=== PATIENT | male | born 1965 | race Caucasian/White ===

== ENCOUNTER → 2017-03-06 | Outpatient (CLI) | payer OTHER ==
--- NOTE | 2017-03-06 08:24 | US ---
EXAMINATION TYPE: US abdomen complete DATE OF EXAM: 03/06/2017 COMPARISON: CT abdomen October 07, 2015, US CLINICAL HISTORY: R74.8 Abn Liver Enzymes levels. EXAM MEASUREMENTS: Liver Length: 16.5 cm Gallbladder Wall: 0.2 cm CBD: 0.3 cm Spleen: 10.0 cm Right Kidney: 9.8 x 5.3 x 5.3 cm Left Kidney: 9.7 x 5.9 x 5.7 cm Pancreas: not visualized due to midline bowel gas Liver: difficult to penetrate Gallbladder: No stones seen Evidence for sonographic Carrasquillo's sign: No CBD: wnl Spleen: wnl Right Kidney: No hydronephrosis or masses seen Left Kidney: No hydronephrosis or masses seen Upper IVC: partially obscured by bowel, visualized portions wnl Abd Aorta: wnl The visualized liver is heterogeneously hyperechoic. Evaluation for focal masses is suboptimal due t o the heterogeneity. The intrahepatic portion of the IVC and visualized abdominal aorta are within no rmal limits. There is no evidence of shadowing mobile cholelithiasis. Common bile duct is unremarka ble. The pancreas is not well seen on images saved secondary to shadowing from overlying bowel gas. The spleen is unremarkable. Kidneys are symmetric and free of hydronephrosis. No renal lesions are seen. IMPRESSION: Heterogeneous hyperechoic appearance of liver suggests diffuse fatty infiltration or unde rlying hepatocellular disease. Imaging guided random biopsy for tissue analysis can be performed if d esired.
== END | disposition home or self-care (01) ==
LOC: RADUSWWP 07:23
PROVIDERS: ATTEND Family Medicine
DX: R74.8 Abnormal levels of other serum enzymes (principal)
CPT/HCPCS: 76700

== ENCOUNTER → 2017-03-15 | Outpatient (CLI) | payer OTHER | END | disposition home or self-care (01) | LOC: CPPFTMAIN 10:12 | PROVIDERS: ATTEND Family Medicine | DX: J45.40 Moderate persistent asthma, uncomplicated (principal) | CPT/HCPCS: 94060; 94726; 94729 ==

== ENCOUNTER → 2018-04-02 | Outpatient (CLI) | payer OTHER ==
[2018-04-02 08:59] LABS: Albumin 4.3 g/dL (3.5-5.0); Bilirubin, Delta 0.3 mg/dL (0.0-0.2); Total Bilirubin 0.3 mg/dL (0.2-1.3); Total Protein 7.1 g/dL (6.3-8.2)
--- NOTE | 2018-04-02 09:26 | MR ---
EXAMINATION TYPE: MR cspine/lspine wo con DATE OF EXAM: 04/02/2018 COMPARISON: Prior MRI cervical and lumbar spine December 06, 2013 HISTORY: Back pain and neck pain per order. Low back pain for years into both thighs and buttocks per patient. Headache with neck pain and stiffness for years causing pain or weakness into both arms and fingers per patient. TECHNIQUE: Multiplanar, multisequence imaging of the cervical and lumbar spine are performed without IV contrast. FINDINGS: C-SPINE: FINDINGS: Coronal images redemonstrate levoconvex scoliotic curvature centered in the upper thoracic spine. Sagittal images of the cervical spine show the craniocervical junction to remain within normal limits. The cervical and upper thoracic spinal cord is normal in course, caliber, and signal. Vert ebral alignment is stable and anatomic. The vertebral body heights remain normal. There is redemons tration of multilevel mild to moderate disc space narrowing C3-C4 through C5-C6 levels with posterior spur disc complexes effacing anterior thecal sac at these levels on sagittal images. Additional tiny posterior disc herniation C6-C7 level is redemonstrated. There is mild to moderate multilevel anteri or spurring most prominent in the mid cervical spine redemonstrated. Some heterogeneous endplate irvin ges are again seen. Axial images show the C2-C3 level to remain within normal limits. Axial images at C3-C4 level show uncovertebral facet degenerative changes bilaterally and broad-based central spur disc complex effacing anterior thecal sac, there is mild to moderate bilateral neural f oraminal narrowing. There is no significant change from prior study. Axial images at C4-C5 level show right paracentral disc protrusion on current study axial image 29 wi th some uncovertebral facet arthropathy, there is effacement of the anterior thecal sac and mild left -sided neural foraminal narrowing. Right-sided neural foramen is patent. Some change from prior study . Axial images at C5-C6 level show uncovertebral facet degenerative changes bilaterally with central sp ur disc complex, there is effacement of the anterior thecal sac, there is moderate left and mild righ t-sided neural foraminal narrowing. No significant change from prior. Axial images at C6-C7 level show right paracentral disc protrusion effacing anterior thecal sac, bila teral neural foramina are patent. No significant change from prior. Axial images at C7-T1 level are felt within normal limits. IMPRESSION: Multilevel degenerative changes in the cervical spine as detailed above, findings fairly stable, some interval change C4-C5 level is noted. L-SPINE: Sagittal images of the lumbar spine show vertebral body heights and alignment to remain satisfactory. There is further progression of multilevel disc desiccation from prior MRI. Disc space heights remai n fairly well-maintained. No new large posterior disc herniations are seen on sagittal images. The co nus medullaris remains normal in position and signal ending T12-L1 level. Modic type II degenerative change anterior L2-L3 endplates is redemonstrated. Small hemangioma T12 vertebra is again seen sagitt al image 6. Axial images show the T12-L1 level to remain within normal limits. Axial images at L1-L2 level show new mild broad disc bulge with left paracentral disc protrusion comp onent effacing anterior thecal sac and axial image 25, bilateral neural foramina are patent. Axial images at L2-L3 level redemonstrate mild to moderate broad disc bulge slightly more prominent w ith mild effacement of the anterior thecal sac noted on axial image 20 on current study, bilateral ne ural foramina are patent. Axial images at L3-L4 level redemonstrate mild broad disc bulge but spinal canal is preserved and meche ateral neural foramina are patent. Axial images at L4-L5 level redemonstrate mild broad disc bulge and mild to minimal facet degenerativ e changes bilaterally. There is effacement of the anterior thecal sac. There is mild right-sided ante rior inferior neural foraminal narrowing on axial image 9. Left-sided neural foramen is patent. No si gnificant change from prior. Axial images at L5-S1 level redemonstrate mild facet degenerative changes bilaterally. Increased sign al posteriorly consistent with annular tear is redemonstrated. There is broad disc bulge minimally ef facing the anterior thecal sac. Bilateral neural foramina are patent. No suspicious retroperitoneal findings are seen. IMPRESSION: Multilevel degenerative changes in the lumbar spine with some interval progression from 2 014 MRI as detailed above.
== END | disposition home or self-care (01) ==
LOC: RADMRIMAIN 06:47
PROVIDERS: ATTEND Physician Assistant
DX: M47.816 Spondylosis without myelopathy or radiculopathy, lumbar region (principal); M47.812 Spondylosis without myelopathy or radiculopathy, cervical region; Z79.891 Long term (current) use of opiate analgesic
CPT/HCPCS: 36415; 72141; 72148; 80076

== ENCOUNTER 2018-04-27 19:16 | Emergency (ER) | payer OTHER ==
[2018-04-27 19:23] VITALS: TEMP 97.7
[2018-04-27] MEDS ORDERED: HYDROcodone/APAP 5-325MG 1 EACH TAB PO STA (19:49)
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
--- NOTE | 2018-04-27 20:39 | XR ---
EXAMINATION TYPE: XR wrist complete 4 views RT, XR knee complete 3 views LT DATE OF EXAM: 04/27/2018 COMPARISON: NONE HISTORY: 53-year-old male with pain after fall FINDINGS: Right wrist: The radiocarpal and distal radial ulnar joint as well as the midcarpal compartment appear intact. No acute fracture, subluxation, or dislocation seen. Left knee: Prepatellar soft tissue swelling. Small knee joint effusion. There is thickening of the suprapatellar soft tissues of the extensor mechanism seems to be maintained. No acute fracture or dislocation. Deg enerative spurring at the patellofemoral compartment. IMPRESSION: 1. Right wrist: No acute osseous abnormality seen. 2. Left knee: Prepatellar and suprapatellar soft tissue swelling. Contusion/swelling could involve th e quadriceps tendon. Suspect that the tendon remains intact. If concern for injury to the extensor me chanism, follow-up ultrasound or MRI. Small knee joint effusion. No acute osseous abnormality seen.
[2018-04-27 21:15] VITALS: BP 131/80; PULSE 106; RESP 16
== END 2018-04-27 21:17 | disposition home or self-care (01) ==
LOC: EC 19:16
DX: S80.02XA Contusion of left knee, initial encounter (principal); S76.119A Strain of unspecified quadriceps muscle, fascia and tendon, initial encounter; S63.501A Unspecified sprain of right wrist, initial encounter; S60.512A Abrasion of left hand, initial encounter; S60.511A Abrasion of right hand, initial encounter; J45.909 Unspecified asthma, uncomplicated; F17.200 Nicotine dependence, unspecified, uncomplicated; Z79.899 Other long term (current) drug therapy; V13.4XXA Pedal cycle driver injured in collision with car, pick-up truck or van in traffic accident, initial encounter; Y93.55 Activity, bike riding; Y92.410 Unspecified street and highway as the place of occurrence of the external cause
CPT/HCPCS: 99283

== ENCOUNTER → 2018-11-19 | Outpatient (CLI) | payer OTHER ==
--- NOTE | 2018-11-19 11:03 | XR ---
EXAMINATION TYPE: XR shoulder complete BILAT DATE OF EXAM: 11/19/2018 COMPARISON: NONE HISTORY: Pain TECHNIQUE: Three views are submitted bilaterally. FINDINGS: The osseous structures are intact. There is no acute fracture or dislocation. There is narrowing of the AC joint on the right. There is chronic appearing deformity of the distal left clavicle. Chronic appearing right-sided rib deformities suggest previous fracture. IMPRESSION: 1. AC joint arthropathy on the right. 2. Deformity of the distal left clavicle likely related to previous trauma..
--- NOTE | 2018-11-19 11:04 | XR ---
EXAMINATION TYPE: XR Hip Bilateral Complete DATE OF EXAM: 11/19/2018 COMPARISON: NONE HISTORY: Pain TECHNIQUE: 2 views submitted FINDINGS: There is no evidence of erosive change or acute fracture. Hypertrophic change of the acetabulum. Calc ifications in the pelvis appear to be vascular. Mild concentric narrowing of the joint space bilatera lly. IMPRESSION: 1. No evidence of acute fracture or dislocation. 2. Mild bilateral arthropathy with findings suggestive of femoral acetabular impingement.
== END ==
LOC: RADXRMAIN 10:26
PROVIDERS: ATTEND Physician Assistant
DX: M12.811 Other specific arthropathies, not elsewhere classified, right shoulder (principal); M21.821 Other specified acquired deformities of right upper arm; M12.852 Other specific arthropathies, not elsewhere classified, left hip; M12.851 Other specific arthropathies, not elsewhere classified, right hip
CPT/HCPCS: 73521

== ENCOUNTER → 2019-06-24 | Outpatient (CLI) | payer OTHER ==
--- NOTE | 2019-06-24 11:26 | XR ---
EXAM TYPE: LUMBAR SPINE X RAY SERIES COMPARISON: NONE HISTORY: low back pain TECHNIQUE: 4 views are submitted. FINDINGS: Alignment is anatomic. The pedicles are intact. The transverse processes are intact. There is no s pondylolysis or spondylolisthesis. Diffuse osteopenia with mild multilevel degenerative disc disease . Vascular calcifications noted. There is facet arthropathy. IMPRESSION: 1. Multilevel mild facet arthropathy and degenerative disc disease. If symptoms persist consider MRI.
== END | disposition home or self-care (01) ==
LOC: RADXRMAIN 10:26
PROVIDERS: ATTEND Family Medicine
DX: M51.36 Other intervertebral disc degeneration, lumbar region (principal); M46.96 Unspecified inflammatory spondylopathy, lumbar region; G89.4 Chronic pain syndrome
CPT/HCPCS: 72110

== ENCOUNTER → 2019-07-25 | Outpatient (CLI) | payer OTHER ==
--- NOTE | 2019-07-28 08:20 | MM ---
Reason for exam: clinical finding. Baseline mammogram. History: Family history of breast cancer in mother and breast cancer in aunt. Physical Findings: Nurse Summary: 2-3cm nodule in the right breast at 12 o'clock and a 0.5cm nodule in the left breast at 12 o'clock (nurse kp). MG 3D Diag Mammo W/Cad ZACH Bilateral CC and MLO view(s) were taken. Right sided increased density. Ultrasound recommended. These results were verbally communicated with the patient and result sheet given to the patient on 07/25/19. ASSESSMENT: Incomplete: need additional imaging evaluation, BI-RAD 0 RECOMMENDATION: Ultrasound of both breasts.
--- NOTE | 2019-07-28 08:23 | USB ---
Reason for exam: additional evaluation requested from abnormal screening. History: Family history of breast cancer in mother and breast cancer in aunt. US Breast Limited BILAT Right limited breast ultrasound including focal area of concern, retroareolar and axilla demonstrates a 1.9 x 1.1cm irregular lesion at the posterior nipple, edematous appearance posterior to the right nipple may reflect gynecomastia although cannot exclude mastitis and a 2.1 x 0.7cm oval node at the axilla. Left limited breast ultrasound including focal area of concern, retroareolar and axilla demonstrates a 2.8 x 0.7cm oval node at the axilla. These results were verbally communicated with the patient and result sheet given to the patient on 07/25/19. ASSESSMENT: Probably benign, BI-RAD 3 RECOMMENDATION: Follow-up diagnostic mammogram and ultrasound of the right breast in 3 months.
== END ==
LOC: RADMAMWWP 14:50
PROVIDERS: ATTEND Family Medicine
DX: Z12.31 Encounter for screening mammogram for malignant neoplasm of breast (principal); R92.8 Other abnormal and inconclusive findings on diagnostic imaging of breast; Z80.3 Family history of malignant neoplasm of breast
CPT/HCPCS: 77066; 76642; G0279; 77062

== ENCOUNTER 2019-10-01 11:42 | Observation (INO) | payer OTHER ==
[2019-10-01 13:41] LABS: Basophils # (A) 0.2 k/uL (0-0.2); Basophils % (A) 2 %; Eosinophils # (A) 0.1 k/uL (0-0.7); Eosinophils % (A) 1 %; HCT 40.7 % (39.0-53.0); HGB 13.1 gm/dL (13.0-17.5); Lymphocytes % (A) 26 %; MCH 34.6 pg (25.0-35.0); MCHC 32.3 g/dL (31.0-37.0); MCV 107.2 fL (80.0-100.0); Macrocytosis Moderate; Mean Platelet Volume 8.5; Monocytes # (A) 0.5 k/uL (0-1.0); Monocytes % (A) 7 %; Neutrophils # (A) 4.6 k/uL (1.3-7.7); Neutrophils % (A) 62 %; RBC 3.79 m/uL (4.30-5.90); WBC 7.5 k/uL (3.8-10.6)
[2019-10-01] MEDS ORDERED: HYDROmorphone 1 MG/ML 1 ML SYRINGE IVP STA ×2 (13:45→16:31)
[2019-10-01 13:48] LABS: INR 1.4 (<1.2); Partial Thromboplastin Time 29.1 sec (22.0-30.0); Prothrombin Time 13.8 sec (9.0-12.0)
--- NOTE | 2019-10-01 13:48 | ED ---
General Adult HPI - General Chief complaint: Extremity Problem,Nontraumatic Stated complaint: leg & hand pain/numbness Time Seen by Provider: 10/01/19 11:50 Source: patient Mode of arrival: wheelchair Limitations: physical limitation - History of Present Illness Initial comments: The patient is a 54-year-old female with past medical history of osteoarthritis, renal disease and legally blind who presents emergency room with reported bilateral lower extremity pain. He states the pain has been present for the past 2 months. He has been seeing Dr. Arzola in office regarding this complaint. He has been diagnosed with restless leg syndrome. States he was placed on Lyrica however he did not like the way it made him feel. States that earlier this week usage to gabapentin. He states it has not been helping his symptoms. He also takes [place] for pain. He is reported to increased swelling in his bilateral lower extremities. Denies any back pain. No saddle anesthesia or bowel or bladder incontinence. He denies any shooting pains. Denies fevers or chills. It has gotten so bad that he has had difficulty in regulating. He has also developed a tremor of his bilateral upper extremities. States he can no longer take the pain and therefore came to the emergency room for further evaluation. He denies any headaches or visual changes. No weakness in his extremities. No history of congestive heart failure. Denies any shortness of breath or chest pain. No history of DVT or PE. Admits to calf pain. There are no other alleviating, precipitating or modifying factors - Related Data Home Medications Medication Instructions Recorded Confirmed Albuterol Inhaler [Ventolin Hfa 1 - 2 puff INHALATION RT-Q6H PRN 01/30/15 10/01/19 Inhaler] Cetirizine HCl [Zyrtec] 10 mg PO DAILY 10/01/19 10/01/19 Fluticasone Nasal [place] [Flonase 1 spr EA NOSTRIL DAILY PRN 10/01/19 10/01/19 Nasal [place]] Omeprazole 20 mg PO DAILY 10/01/19 10/01/19 Previous Rx's Medication Instructions Recorded Folic Acid 1 mg PO DAILY #30 tablet 10/03/19 Gabapentin [Neurontin] 600 mg PO TID #9 tab 10/03/19 Multivitamins, Thera [Multivitamin 1 tab PO DAILY #30 tablet 10/03/19 (formulary)] Nortriptyline [Pamelor] 25 mg PO HS #30 cap 10/03/19 Thiamine [Vitamin B-1] 100 mg PO DAILY #30 tab 10/03/19 predniSONE 10 mg PO DIRECTED #30 tab 10/03/19 Allergies Allergy/AdvReac Type Severity Reaction Status Date / Time No Known Allergies Allergy Verified 10/01/19 13:21 Review of Systems ROS Statement: Those systems with pertinent positive or pertinent negative responses have been documented in the HPI. ROS Other: All systems not noted in ROS Statement are negative. Past Medical History Past Medical History: Asthma, Osteoarthritis (OA), Renal Disease Additional Past Medical History / Comment(s): pericarditis, back pain, legally blind, bilateral knee pain, acute kidney injury from fall down stairs 04/2015 History of Any Multi-Drug Resistant Organisms: None Reported Past Surgical History: Orthopedic Surgery Additional Past Surgical History / Comment(s): Right hand surgery Past Psychological History: Anxiety, Depression Smoking Status: Current every day smoker Past Alcohol Use History: Occasional Past Drug Use History: Marijuana - Past Family History Father Family Medical History: No Reported History General Exam Limitations: physical limitation General appearance: alert, in no apparent distress Head exam: Present: atraumatic, normocephalic, normal inspection Eye exam: Present: normal appearance, PERRL, EOMI. Absent: scleral icterus, conjunctival injection, periorbital swelling ENT exam: Present: normal exam, mucous membranes moist Neck exam: Present: normal inspection. Absent: tenderness, meningismus, lymphadenopathy Respiratory exam: Present: normal lung sounds bilaterally. Absent: respiratory distress, wheezes, rales, rhonchi, stridor Cardiovascular Exam: Present: regular rate, normal rhythm, normal heart sounds. Absent: systolic murmur, diastolic murmur, rubs, gallop, clicks GI/Abdominal exam: Present: soft, normal bowel sounds. Absent: distended, tenderness, guarding, rebound, rigid Extremities exam: Present: full ROM, normal capillary refill, pedal edema, other (2+ DP and PT pulses). Absent: tenderness, joint swelling, calf tenderness Back exam: Present: normal inspection Neurological exam: Present: alert, oriented X3, CN II-XII intact, other (resting tremor b/l upper extremities) Psychiatric exam: Present: normal affect, normal mood Skin exam: Present: warm, dry, intact, normal color. Absent: rash Course Vital Signs 10/01/19 10/01/19 10/01/19 11:51 12:17 13:39 Temperature 97.8 F 97.8 F Pulse Rate 104 H 101 H 103 H Respiratory 20 18 18 Rate Blood Pressure 123/74 131/91 149/100 O2 Sat by Pulse 95 93 L 93 L Oximetry 10/01/19 10/01/19 15:47 17:13 Temperature Pulse Rate 97 113 H Respiratory 18 18 Rate Blood Pressure 141/80 113/59 O2 Sat by Pulse 91 L 96 Oximetry Medical Decision Making - Medical Decision Making Upon arrival the patient was placed into room 10. A thorough history and physical exam was performed. The patient does have a bilateral lower extremity edema. Peripheral IV was established. The patient is requesting something for pain control therefore he is given 1 mg of Dilaudid. Laboratory studies were conducted. INR elevated at 1.4. Lactic acid is 2.4. Calcium 7.7. AST 127. A lk phos 149. CK 49. Venous Doppler of the lower extremity demonstrates no DVT. I discussed results with the patient. He continues to report intractable pain. He is requesting another dose of pain medications. Did provide him with an additional dose of Dilaudid. I discussed the case with Dr. Solano as he is on-call for Dr. Zurita. He does agree to hospital admission with neurology consult for the lower extremity neuropathy pain and tremors. I discussed this with the patient he does agree. Bridging orders were placed patient is awaiting a bed on the floor - Lab Data Result diagrams: 10/03/19 06:33 10/03/19 06:33 Lab Results 10/01/19 10/01/19 10/01/19 Range/Units 13:17 13:17 13:17 WBC 7.5 (3.8-10.6) k/uL RBC 3.79 L (4.30-5.90) m/uL Hgb 13.1 (13.0-17.5) gm/dL Hct 40.7 (39.0-53.0) % MCV 107.2 H (80.0-100.0) fL MCH 34.6 (25.0-35.0) pg MCHC 32.3 (31.0-37.0) g/dL RDW 15.0 (11.5-15.5) % Plt Count 94 L (150-450) k/uL Neutrophils % 62 % Lymphocytes % 26 % Monocytes % 7 % Eosinophils % 1 % Basophils % 2 % Neutrophils # 4.6 (1.3-7.7) k/uL Lymphocytes # 2.0 (1.0-4.8) k/uL Monocytes # 0.5 (0-1.0) k/uL Eosinophils # 0.1 (0-0.7) k/uL Basophils # 0.2 (0-0.2) k/uL Manual Slide Review Performed Poikilocytosis (manual Present Anisocytosis (manual) Present Macrocytosis Moderate Target Cells Present PT (9.0-12.0) sec INR (<1.2) APTT (22.0-30.0) sec Sodium 145 (137-145) mmol/L Potassium 3.8 (3.5-5.1) mmol/L Chloride 107 (98-107) mmol/L Carbon Dioxide 28 (22-30) mmol/L Anion Gap 10 mmol/L BUN 5 L (9-20) mg/dL Creatinine 0.62 L (0.66-1.25) mg/dL Est GFR (CKD-EPI)AfAm >90 (>60 ml/min/1.73 sqM) Est GFR (CKD-EPI)NonAf >90 (>60 ml/min/1.73 sqM) Glucose 96 (74-99) mg/dL Lactic Ac Sepsis Rflx Plasma Lactic Acid Praveen (0.7-2.0) mmol/L Calcium 7.7 L (8.4-10.2) mg/dL Magnesium 2.1 (1.6-2.3) mg/dL Total Bilirubin 1.8 H (0.2-1.3) mg/dL AST 127 H (17-59) U/L ALT 17 (4-49) U/L Alkaline Phosphatase 149 H (38-126) U/L Creatine Kinase 49 L (55-170) U/L C-Reactive Protein (<10.0) mg/L NT-Pro-B Natriuret Pep 246 pg/mL Total Protein 7.3 (6.3-8.2) g/dL Albumin 2.8 L (3.5-5.0) g/dL TSH 1.480 (0.465-4.680) mIU/L 10/01/19 10/01/19 10/01/19 Range/Units 13:17 13:17 13:17 WBC (3.8-10.6) k/uL RBC (4.30-5.90) m/uL Hgb (13.0-17.5) gm/dL Hct (39.0-53.0) % MCV (80.0-100.0) fL MCH (25.0-35.0) pg MCHC (31.0-37.0) g/dL RDW (11.5-15.5) % Plt Count (150-450) k/uL Neutrophils % % Lymphocytes % % Monocytes % % Eosinophils % % Basophils % % Neutrophils # (1.3-7.7) k/uL Lymphocytes # (1.0-4.8) k/uL Monocytes # (0-1.0) k/uL Eosinophils # (0-0.7) k/uL Basophils # (0-0.2) k/uL Manual Slide Review Poikilocytosis (manual Anisocytosis (manual) Macrocytosis Target Cells PT 13.8 H (9.0-12.0) sec INR 1.4 H (<1.2) APTT 29.1 (22.0-30.0) sec Sodium (137-145) mmol/L Potassium (3.5-5.1) mmol/L Chloride (98-107) mmol/L Carbon Dioxide (22-30) mmol/L Anion Gap mmol/L BUN (9-20) mg/dL Creatinine (0.66-1.25) mg/dL Est GFR (CKD-EPI)AfAm (>60 ml/min/1.73 sqM) Est GFR (CKD-EPI)NonAf (>60 ml/min/1.73 sqM) Glucose (74-99) mg/dL Lactic Ac Sepsis Rflx Plasma Lactic Acid Praveen 2.4 H* (0.7-2.0) mmol/L Calcium (8.4-10.2) mg/dL Magnesium (1.6-2.3) mg/dL Total Bilirubin (0.2-1.3) mg/dL AST (17-59) U/L ALT (4-49) U/L Alkaline Phosphatase (38-126) U/L Creatine Kinase (55-170) U/L C-Reactive Protein 20.8 H (<10.0) mg/L NT-Pro-B Natriuret Pep pg/mL Total Protein (6.3-8.2) g/dL Albumin (3.5-5.0) g/dL TSH (0.465-4.680) mIU/L 10/01/19 Range/Units 14:00 WBC (3.8-10.6) k/uL RBC (4.30-5.90) m/uL Hgb (13.0-17.5) gm/dL Hct (39.0-53.0) % MCV (80.0-100.0) fL MCH (25.0-35.0) pg MCHC (31.0-37.0) g/dL RDW (11.5-15.5) % Plt Count (150-450) k/uL Neutrophils % % Lymphocytes % % Monocytes % % Eosinophils % % Basophils % % Neutrophils # (1.3-7.7) k/uL Lymphocytes # (1.0-4.8) k/uL Monocytes # (0-1.0) k/uL Eosinophils # (0-0.7) k/uL Basophils # (0-0.2) k/uL Manual Slide Review Poikilocytosis (manual Anisocytosis (manual) Macrocytosis Target Cells PT (9.0-12.0) sec INR (<1.2) APTT (22.0-30.0) sec Sodium (137-145) mmol/L Potassium (3.5-5.1) mmol/L Chloride (98-107) mmol/L Carbon Dioxide (22-30) mmol/L Anion Gap mmol/L BUN (9-20) mg/dL Creatinine (0.66-1.25) mg/dL Est GFR (CKD-EPI)AfAm (>60 ml/min/1.73 sqM) Est GFR (CKD-EPI)NonAf (>60 ml/min/1.73 sqM) Glucose (74-99) mg/dL Lactic Ac Sepsis Rflx Y Plasma Lactic Acid Praveen (0.7-2.0) mmol/L Calcium (8.4-10.2) mg/dL Magnesium (1.6-2.3) mg/dL Total Bilirubin (0.2-1.3) mg/dL AST (17-59) U/L ALT (4-49) U/L Alkaline Phosphatase (38-126) U/L Creatine Kinase (55-170) U/L C-Reactive Protein (<10.0) mg/L NT-Pro-B Natriuret Pep pg/mL Total Protein (6.3-8.2) g/dL Albumin (3.5-5.0) g/dL TSH (0.465-4.680) mIU/L - EKG Data EKG Comments: EKG demonstrates a normal sinus rhythm with a ventricular rate of 96. GA interval 140. QRS 78. QTC of 469. No acute ST segment elevation depressions concerning for ischemic changes Disposition Clinical Impression: Bilateral lower extremity pain Disposition: ADMITTED IP TO THIS HOSP Condition: Stable Is patient prescribed a controlled substance at d/c from ED?: No Decision to Admit Reason: Admit from EC Decision Date: 10/01/19 Decision Time: 15:44
[2019-10-01 13:53] LABS: ALT 17 U/L (4-49); AST 127 U/L (17-59); African American GFR (CKD) >90 (>60 ml/min/1.73 sqM); Albumin 2.8 g/dL (3.5-5.0); Alkaline Phosphatase 149 U/L (38-126); Anion Gap 10 mmol/L; Blood Urea Nitrogen 5 mg/dL (9-20); Calcium 7.7 mg/dL (8.4-10.2); Carbon Dioxide 28 mmol/L (22-30); Chloride 107 mmol/L (98-107); Creatine Kinase 49 U/L (55-170); Glucose 96 mg/dL (74-99); Magnesium 2.1 mg/dL (1.6-2.3); Non-African American GFR(CKD) >90 (>60 ml/min/1.73 sqM); Potassium 3.8 mmol/L (3.5-5.1); Sodium 145 mmol/L (137-145); Total Bilirubin 1.8 mg/dL (0.2-1.3); Total Protein 7.3 g/dL (6.3-8.2)
[2019-10-01 14:02] LABS: Platelet Count 94 k/uL (150-450)
[2019-10-01 14:03] LABS: Anisocytosis (M) Present; Poikilocytosis (M) Present; Target Cells Present
--- NOTE | 2019-10-01 14:17 | US ---
EXAMINATION TYPE: US venous doppler duplex LE DATE OF EXAM: 10/01/2019 2:03 PM COMPARISON: NONE CLINICAL HISTORY: swelling, pain. SIDE PERFORMED: Bilateral TECHNIQUE: The lower extremity deep venous system is examined utilizing real time linear array sonog bowen with graded compression, doppler sonography and color-flow sonography. VESSELS IMAGED: External Iliac Vein (EIV) Common Femoral Vein Deep Femoral Vein Greater Saphenous Vein * Femoral Vein Popliteal Vein Small Saphenous Vein * Proximal Calf Veins (* superficial vessels) Grayscale, color doppler, spectral doppler imaging performed of the deep veins of the lower extremiti es. There is normal flow, compressibility, vascular waveforms. Right Leg: Negative for DVT Left Leg: Negative for DVT IMPRESSION: No sonographic evidence of deep venous thrombosis within either bilateral lower extremit y.
[2019-10-01] MEDS ORDERED: NALOXONE 0.4 MG/ML 1 ML VIAL IV PRN (16:31)
[2019-10-01] MEDS ORDERED: FLUTICASONE 50MCG/SPRAY NASAL 16GM EA NOSTRIL PRN (19:17)
[2019-10-01] MEDS ORDERED: ALBUTEROL NEBULIZED 2.5 MG/3 ML INHALATION PRN (19:17)
[2019-10-01] MEDS: SODIUM CHLORIDE 0.9% 1,000 ML IV SCH (19:44)
[2019-10-01] MEDS: HYDROmorphone 1 MG/ML 1 ML SYRINGE IVP PRN ×2 (20:18→23:15)
[2019-10-01] MEDS: methylPREDNISolone SOD SUCCI 125 MG/2 ML VIAL IV SCH (23:16)
[2019-10-02] MEDS: HYDROmorphone 1 MG/ML 1 ML SYRINGE IVP PRN ×3 (02:10→10:00)
[2019-10-02] MEDS: SODIUM CHLORIDE 0.9% 1,000 ML IV SCH ×2 (03:38→10:03)
[2019-10-02] MEDS: methylPREDNISolone SOD SUCCI 125 MG/2 ML VIAL IV SCH ×4 (05:34→23:25)
[2019-10-02] MEDS: PANTOPRAZOLE 40 MG TABLET PO SCH (07:06)
[2019-10-02] MEDS ORDERED: THIAMINE 100 MG/ML 2 ML VIAL IM STA (07:08)
[2019-10-02] MEDS ORDERED: LORazepam 2 MG/ML INJ IV PRN ×2 (07:08)
[2019-10-02] MEDS ORDERED: ONDANSETRON 4 MG/2 ML VIAL IVP PRN (07:19)
[2019-10-02] MEDS: LORazepam 2 MG/ML INJ IV PRN ×3 (07:27→17:51)
[2019-10-02] MEDS: LORATADINE 10 MG TAB PO SCH (07:27)
[2019-10-02] MEDS ORDERED: MULTIVITAMINS, THERA 1 EACH TAB PO SCH (09:00)
--- NOTE | 2019-10-02 09:33 | XR ---
EXAMINATION TYPE: XR chest 1V portable DATE OF EXAM: 10/02/2019 COMPARISON: 06/22/2014 HISTORY: Shortness of breath and cough TECHNIQUE: Single frontal view of the chest is obtained. FINDINGS: There is no focal air space opacity, pleural effusion, or pneumothorax seen. The cardiac silhouette size is upper limits of normal in size. Old fracture deformities of the right lateral ribs are again noted. IMPRESSION: No acute process.
[2019-10-02 11:30] LABS: HCT 42.4 % (39.0-53.0); HGB 13.4 gm/dL (13.0-17.5); MCH 34.3 pg (25.0-35.0); MCHC 31.5 g/dL (31.0-37.0); MCV 108.6 fL (80.0-100.0); Macrocytosis Marked; Mean Platelet Volume 9.7; RDW 14.8 % (11.5-15.5); WBC 5.9 k/uL (3.8-10.6)
[2019-10-02 11:35] LABS: Platelet Count 97 k/uL (150-450)
[2019-10-02 11:46] LABS: ALT 19 U/L (4-49); AST 104 U/L (17-59); African American GFR (CKD) >90 (>60 ml/min/1.73 sqM); Albumin 3.1 g/dL (3.5-5.0); Alkaline Phosphatase 122 U/L (38-126); Anion Gap 9 mmol/L; Blood Urea Nitrogen 7 mg/dL (9-20); Calcium 7.5 mg/dL (8.4-10.2); Carbon Dioxide 29 mmol/L (22-30); Chloride 102 mmol/L (98-107); Glucose 138 mg/dL (74-99); Non-African American GFR(CKD) >90 (>60 ml/min/1.73 sqM); Potassium 3.9 mmol/L (3.5-5.1); Sodium 140 mmol/L (137-145); Total Bilirubin 2.4 mg/dL (0.2-1.3); Total Protein 7.9 g/dL (6.3-8.2)
[2019-10-02 12:03] LABS: Glucose,Whole Blood 130 mg/dL (75-99)
[2019-10-02] MEDS: INSULIN ASPART (NovoLOG) 100 UNIT/ML VIAL SQ SCH ×3 (12:03→20:38)
--- NOTE | 2019-10-02 12:16 | P.HPIM ---
History of Present Illness H&P Date: 10/02/19 This is a 54-year-old gentleman, history of polysubstance abuse including alcohol abuse , legally blind, osteoarthritis and multiple other medical issues presented to the ER with worsening bilateral lower extremity pain accompanied by tremors, numbness of feet and hands. Reports leg pain has been present for greater than 8 months, over the last 3-4 weeks he has been taken to [place] dose 3 times a day which was not controlling the pain. Denies difficulty ambulating.Reports PCP started him on Lyrica, did not like how it made him feel. Medication changed to Neurontin which helped but did not totally relieve his discomfort. Complains of bilateral lower extremity edema. Denies back pain, incontinence. No fevers or chills. Denies chest pain, palpitations or shortness of breath. Denies lightheadedness dizziness or focal deficits. Received IV push Dilaudid 2 for pain management in the ER. Elevated LFTs, INR 1.4. Reports he drinks 6-8 beers daily. Lactic acid mildly elevated at 2.4. received gentle IV fluid hydration. Currently complaining of nausea, vomiting, denies abdominal pain. Tremor significantly improved with Ativan. EKG read normal sinus rhythm Venous Doppler of bilateral lower extremities, reported negative for DVT. Chest x-ray reported no acute process. Review of Systems ROS Statement: Those systems with pertinent positive or pertinent negative responses have been documented in the HPI. ROS Other: All systems not noted in ROS Statement are negative. Past Medical History Past Medical History: Asthma, Osteoarthritis (OA), Renal Disease Additional Past Medical History / Comment(s): pericarditis, back pain, legally blind, bilateral knee pain, acute kidney injury from fall down stairs 04/2015, restless leg syndrome History of Any Multi-Drug Resistant Organisms: None Reported Past Surgical History: Orthopedic Surgery Additional Past Surgical History / Comment(s): Right hand surgery Past Anesthesia/Blood Transfusion Reactions: No Reported Reaction Past Psychological History: Anxiety, Depression Smoking Status: Current every day smoker Past Alcohol Use History: Occasional Past Drug Use History: Marijuana - Past Family History Father Family Medical History: No Reported History Medications and Allergies Home Medications Medication Instructions Recorded Confirmed Type Albuterol Inhaler [Ventolin 1 - 2 puff INHALATION RT-Q6H PRN 01/30/15 10/01/19 History Inhaler] Baclofen [[place]] 10 mg PO TID 10/01/19 10/01/19 History Cetirizine HCl [Zyrtec] 10 mg PO DAILY 10/01/19 10/01/19 History Fluticasone Nasal [place] [Flonase 1 spr EA NOSTRIL DAILY PRN 10/01/19 10/01/19 History Nasal [place]] Gabapentin [Neurontin] 400 mg PO TID 10/01/19 10/01/19 History HYDROcodone/APAP 10-325MG [[place] 1 tab PO TID PRN 10/01/19 10/01/19 History 10-325] Omeprazole 20 mg PO DAILY 10/01/19 10/01/19 History Allergies Allergy/AdvReac Type Severity Reaction Status Date / Time No Known Allergies Allergy Verified 10/01/19 13:21 Physical Exam Vitals: Vital Signs Temp Pulse Pulse Resp BP BP Pulse Ox 10/02/19 08:31 98.5 F 86 15 157/81 90 L 10/02/19 00:18 98.4 F 108 H 16 153/79 92 L 10/01/19 20:00 109 H 10/01/19 17:37 97.9 F 105 H 17 132/82 95 10/01/19 17:30 98.1 F 113 H 18 138/85 95 10/01/19 17:13 113 H 18 113/59 96 10/01/19 15:47 97 18 141/80 91 L 10/01/19 13:39 103 H 18 149/100 93 L 10/01/19 12:17 97.8 F 101 H 18 131/91 93 L 10/01/19 11:51 97.8 F 104 H 20 123/74 95 Intake and Output 10/01/19 10/02/19 10/02/19 22:59 06:59 14:59 Intake Total 130 1170 Balance 130 1170 Intake: Intake, IV Titration 130 1170 Amount Sodium Chloride 0.9% 1, 130 1170 000 ml @ 130 mls/hr IV . Q7H42M [facility] Rx#:[id number] Other: Voiding Method Toilet Toilet # Voids 1 3 Weight 87.543 kg PHYSICAL EXAM: VITAL SIGNS: As above GENERAL: Sitting up in bed, no acute disTRESS. HEENT: Conjunctivae normal. eyes normal. NECK: No JVD. No thyroid enlargement. No LNs CARDIOVASCULAR: S1, S2 regular.. No murmur RESPIRATION: Coarse Breath sounds diminished in the bases. No rhonchi or crackles. No bronchial breathing. ABDOMEN: Soft, nondistended, nontender . No guarding. no masses palpable. No ascites, No hepatosplenomegaly.Bowel sounds heard. LEGS: Minimal Bilateral lower extremity edema, venous insufficiency PSYCHIATRY: Alert and oriented X3, mood and affect normal. NERVOUS SYSTEM: Cranial N 2-12 grossly normal. Moves all 4 limbs. Diffuse weakness No focal deficits. Strength and sensation grossly intact.. Minimal tremors. Skin: no rash Lymphatic system. No LN neck axilla. Results CBC & Chem 7: 10/02/19 11:18 10/02/19 11:18 Labs: Abnormal Lab Results - Last 24 Hours (Table) 10/01/19 10/01/19 10/01/19 Range/Units 13:17 13:17 13:17 RBC 3.79 L (4.30-5.90) m/uL MCV 107.2 H (80.0-100.0) fL Plt Count 94 L (150-450) k/uL ESR (0-15) mm/hr PT 13.8 H (9.0-12.0) sec INR 1.4 H (<1.2) BUN 5 L (9-20) mg/dL Creatinine 0.62 L (0.66-1.25) mg/dL Plasma Lactic Acid Praveen (0.7-2.0) mmol/L Calcium 7.7 L (8.4-10.2) mg/dL Total Bilirubin 1.8 H (0.2-1.3) mg/dL AST 127 H (17-59) U/L Alkaline Phosphatase 149 H (38-126) U/L Creatine Kinase 49 L (55-170) U/L C-Reactive Protein (<10.0) mg/L Albumin 2.8 L (3.5-5.0) g/dL 10/01/19 10/01/19 10/01/19 Range/Units 13:17 13:17 17:21 RBC (4.30-5.90) m/uL MCV (80.0-100.0) fL Plt Count (150-450) k/uL ESR (0-15) mm/hr PT (9.0-12.0) sec INR (<1.2) BUN (9-20) mg/dL Creatinine (0.66-1.25) mg/dL Plasma Lactic Acid Praveen 2.4 H* 2.5 H* (0.7-2.0) mmol/L Calcium (8.4-10.2) mg/dL Total Bilirubin (0.2-1.3) mg/dL AST (17-59) U/L Alkaline Phosphatase (38-126) U/L Creatine Kinase (55-170) U/L C-Reactive Protein 20.8 H (<10.0) mg/L Albumin (3.5-5.0) g/dL 10/01/19 Range/Units 20:32 RBC (4.30-5.90) m/uL MCV (80.0-100.0) fL Plt Count (150-450) k/uL ESR 48 H (0-15) mm/hr PT (9.0-12.0) sec INR (<1.2) BUN (9-20) mg/dL Creatinine (0.66-1.25) mg/dL Plasma Lactic Acid Praveen (0.7-2.0) mmol/L Calcium (8.4-10.2) mg/dL Total Bilirubin (0.2-1.3) mg/dL AST (17-59) U/L Alkaline Phosphatase (38-126) U/L Creatine Kinase (55-170) U/L C-Reactive Protein (<10.0) mg/L Albumin (3.5-5.0) g/dL Thrombosis Risk Factor Assmnt - Choose All That Apply Any of the Below Risk Factors Present?: Yes Each Factor Represents 1 point: Age 41-60 years, Obesity (BMI >25) Other Risk Factors: No Other congenital or acquired thrombophilia - If yes, enter type in comment: No Thrombosis Risk Factor Assessment Total Risk Factor Score: 2 Thrombosis Risk Factor Assessment Level: Low Risk Assessment and Plan Assessment: Bilateral lower extremity pain, 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 Alcohol abuse, possible DTs, drinks 6-8 beers daily Coagulopathy, elevated INR on admission secondary to the above Elevated LFTs History of polysubstance abuse, per record review; patient reports only alcohol currently. Ongoing nicotine dependence Legally blind Restless leg syndrome Chronic renal failure, stage I Obesity, BMI 31.2 Right lateral ribs old fracture deformities per chest x-ray Osteoarthritis Venous insufficiency Plan, continue on current medication regime ,monitoring antidromic treatment. Zofran, npo diet with ice chips. Dilaudid discontinued. IV fluid hydration including banana bag daily. Acetaminophen level and F/U Labs ordered. CIWA protocol initiated. Neurology consult in place, recommendations pending. Social work and psychiatry consulted. Home meds have been reviewed and resumed accordingly. The impression and plan of care has been dictated as directed. : I performed a history and examination of this patient, discussed the same with the dictator. I agree with the dictator's note ,documented as a scribe. Any additional findings or plans will be noted.
[2019-10-02] MEDS: THIAMINE 100 MG TAB PO SCH (16:55)
[2019-10-02 17:01] LABS: Glucose,Whole Blood 156 mg/dL (75-99)
--- NOTE | 2019-10-02 17:41 | P.CNNES ---
History of Present Illness Consult date: 10/02/19 Reason for Consult: new onset tremor History of Present Illness: HISTORY OF PRESENT ILLNESS: Thank you for allowing me to evaluate Ms. Iván Banerjee. Mr. Banerjee is a 54 year-old man with PMhx of restless leg syndrome, asthma, osteoarthritis, pericarditis, legally blind, acute kidney injury after a fall, anxiety, derpession, who presented to [facility] for leg pain x2 months, consulting Neurology for new onset tremor. 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 Patient noticed since about 3-4 weeks ago where he started having severe aching pain in his legs bilaterally. He states his leg pain is 10/10. Pain doesn't necessarily doesn't originate from his lower back, but he's been told that he had degenerative changes. Patient reports that he's had some numbness in his hands bilaterally and also numbness and tingling in his feet and legs up to his thigh. He reports more tingling sensation in his legs than his feet. Patient reports that he was diagnosed with restless leg syndrome many years ago. Patient states that he "hits his " in sleep and while in bed due to his restless leg syndrome. Patient does not remember any medications he was given for it, but he is taking baclofen, intermittently, when his back or legs spasm. Patient states that his "tremors" improve once he takes his pain medications. During the evaluation, patient demonstrated his episodes of tremors, and it was as if his entire body was shaking from EtOH withdrawal. Patient states that he was recently in penitentiary, released about a year ago, and while he was in penitentiary, he got his EtOH and cigarettes cut cold turkey and never had withdrawal symptoms. Patient denies any headache, vision changes, dizziness, weakness. Pt reports he vomited today after drinking mountain dew. Denies recent sickness, fever, coughing, chest pain or SOB. Endorses some diarrhea yesterday. Patient denies any urinary retention/incontinence or constipation. Patient has taken gabapentin and lyrica for peripheral neuropathy. Pt didn't like lyrica as it caused him to feel foggy mentally. He's been taking gabapentin. PAST MEDICAL HISTORY: restless leg syndrome, asthma, osteoarthritis, pericarditis, legally blind, acute kidney injury after a fall, anxiety, derpession PAST SURGICAL HISTORY: R hand surgery HOME MEDICATIONS: Albuterol, norco, baclofen, omeprazole, gabapentin, cetirizine ALLERGIES: NKDA SOCIAL HISTORY: Current everyday smoker. Drinks at least 6-7 cans of beer daily. Endorses marijuana use FAMILY HISTORY: No family history of tremor, migraine, Parkinson's disease REVIEW OF SYSTEMS: The 14 systems are reviewed and no additional points are identified compared to the review of systems documented history and physical PHYSICAL EXAMINATION: VITAL SIGNS: T 98.5 HR 86 RR 15 BP 157/81 O2 sat 90% on RA GEN.: NAD, pleasant and cooperative HEENT: NCAT, sclera without icterus NECK: Supple SKIN AND EXTREMITIES: Warm to touch, no edema (pt reports that his legs were more swollen last couple of days, much improved today) NEURO: MENTAL STATUS: Patient alert and oriented to self, place, time. Able to name the current president. Speech fluent, able to name and repeat, following all commands readily. No right and left disorientation, neglect. CRANIAL NERVES II THROUGH XII: II: Pupils are equal and reactive to light symmetrically. Visual field deficit in R upper and lower quadrants. R eye has limited vision for years. L temporal quadrants also with visual field deficit. III, IV, : No ptosis. Extraocular movements full. No nystagmus. V: Facial sensation intact from V1-3. VII. No clear facial asymmetry. VIII: Hearing intact to finger rub bilaterally. IX, X: Symmetric palate elevation. XI: Shoulder shrug intact. XII: Tongue midline without fasciculation or atrophy. MOTOR: Normal bulk/tone. No pronator drift or tremor. Strength is 5/5 throughout all 4 extremities. SENSORY: Intact to light touch in all 4 extremities. Pt reporting numbness and tingling in his legs bilaterally. Romberg is negative. REFLEXES: 2+ throughout. Toes are downgoing. No clonus. Ken's is absent COORDINATION: Finger to nose intact. No dysmetria. GAIT: Narrow-based and stable. Difficulty with toe/heel/tandem walk DIAGNOSTIC TESTING: LABORATORY: WBC 7.5 Hgb 13.1 Platelet 94 ESR 48 CRP 20.8 INR 1.4 K 145 K 3.8 Cl 107 CO2 28 BUN 5 Cr 0.62 glucose 96 lactic acid 2.4 AST 127 ALT 17 AlkPhos 149 TSH 1.480 IMAGING: No head imaging available at this time ASSESSMENT: 54 year-old man with PMhx of restless leg syndrome, asthma, osteoarthritis, pericarditis, legally blind, acute kidney injury after a fall, anxiety, derpession, who presented to [facility] for leg pain x2 months, consulting Neurology for new onset tremor. Exam remarkable for temporal visual deficit in both R and L eyes (R eye is legally blind) and b/l LE numbness and tingling. Pt with physiological tremor during this eval. Pt's report of episodes of shaking could be from patient's EtOH abuse/withdrawal, especially considering that his shaking episodes improve after taking [place]. Patient should get some head imaging, but can be done as outpatient. Patient needs formal education about EtOH abuse.Will start patient on nortriptyline 25mg qhs for his pain and also difficulty with sleeping. Discussed with and patient. Discussed side effects such as dry mouth, constipation, heart palpitations, dizziness. Patient will discontinue if he has any of these side effects. If patient tolerating med for 2 weeks, can increase to 50mg qhs. No additional inpatient neurological evaluation recommended at this time. Pt needs to follow-up with an outpatient Neurologist for better management of restless leg syndrome, possible EMG/NCS, and better management of paresthesia/pain. Neurology will sign off at this time. Please call with additional questions or concerns. Past Medical History Past Medical History: Asthma, Osteoarthritis (OA), Renal Disease Additional Past Medical History / Comment(s): pericarditis, back pain, legally blind, bilateral knee pain, acute kidney injury from fall down stairs 04/2015, restless leg syndrome History of Any Multi-Drug Resistant Organisms: None Reported Past Surgical History: Orthopedic Surgery Additional Past Surgical History / Comment(s): Right hand surgery Past Anesthesia/Blood Transfusion Reactions: No Reported Reaction Past Psychological History: Anxiety, Depression Smoking Status: Current every day smoker Past Alcohol Use History: Occasional Past Drug Use History: Marijuana - Past Family History Father Family Medical History: No Reported History Medications and Allergies Home Medications Medication Instructions Recorded Confirmed Type Albuterol Inhaler [Ventolin 1 - 2 puff INHALATION RT-Q6H PRN 01/30/15 10/01/19 History Inhaler] Baclofen [Lioresal] 10 mg PO TID 10/01/19 10/01/19 History Cetirizine HCl [Zyrtec] 10 mg PO DAILY 10/01/19 10/01/19 History Fluticasone Nasal [place] [Flonase 1 spr EA NOSTRIL DAILY PRN 10/01/19 10/01/19 History Nasal [place]] Gabapentin [Neurontin] 400 mg PO TID 10/01/19 10/01/19 History HYDROcodone/APAP 10-325MG [[place] 1 tab PO TID PRN 10/01/19 10/01/19 History 10-325] Omeprazole 20 mg PO DAILY 10/01/19 10/01/19 History Allergies Allergy/AdvReac Type Severity Reaction Status Date / Time No Known Allergies Allergy Verified 10/01/19 13:21 Physical Examination - Vital Signs Vital Signs: Vital Signs Temp Pulse Pulse Resp BP BP Pulse Ox 10/02/19 08:31 98.5 F 86 15 157/81 90 L 10/02/19 00:18 98.4 F 108 H 16 153/79 92 L 10/01/19 20:00 109 H 10/01/19 17:37 97.9 F 105 H 17 132/82 95 10/01/19 17:30 98.1 F 113 H 18 138/85 95 10/01/19 17:13 113 H 18 113/59 96 10/01/19 15:47 97 18 141/80 91 L 10/01/19 13:39 103 H 18 149/100 93 L 10/01/19 12:17 97.8 F 101 H 18 131/91 93 L 10/01/19 11:51 97.8 F 104 H 20 123/74 95 Intake and Output 10/01/19 10/02/19 10/02/19 22:59 06:59 14:59 Intake Total 130 1170 Balance 130 1170 Intake: Intake, IV Titration 130 1170 Amount Sodium Chloride 0.9% 1, 130 1170 000 ml @ 130 mls/hr IV . [id number] [facility] Rx#:[id number] Other: Voiding Method Toilet Toilet # Voids 1 3 Weight 87.543 kg Results - Laboratory Findings CBC and BMP: 10/02/19 11:18 10/02/19 11:18 Abnormal Lab Findings: Abnormal Labs 10/01/19 10/01/19 10/01/19 13:17 13:17 13:17 RBC 3.79 L MCV 107.2 H Plt Count 94 L ESR PT 13.8 H INR 1.4 H BUN 5 L Creatinine 0.62 L Plasma Lactic Acid Praveen Calcium 7.7 L Total Bilirubin 1.8 H AST 127 H Alkaline Phosphatase 149 H Creatine Kinase 49 L C-Reactive Protein Albumin 2.8 L 10/01/19 10/01/19 10/01/19 13:17 13:17 17:21 RBC MCV Plt Count ESR PT INR BUN Creatinine Plasma Lactic Acid Praveen 2.4 H* 2.5 H* Calcium Total Bilirubin AST Alkaline Phosphatase Creatine Kinase C-Reactive Protein 20.8 H Albumin 10/01/19 20:32 RBC MCV Plt Count ESR 48 H PT INR BUN Creatinine Plasma Lactic Acid Praveen Calcium Total Bilirubin AST Alkaline Phosphatase Creatine Kinase C-Reactive Protein Albumin
[2019-10-02 20:36] LABS: Glucose,Whole Blood 123 mg/dL (75-99)
[2019-10-02] MEDS ORDERED: NORTRIPTYLINE 25 MG CAP PO SCH (21:00)
[2019-10-03] MEDS: SODIUM CHLORIDE 0.9% 1,000 ML IV SCH ×3 (02:34→11:41)
[2019-10-03] MEDS: methylPREDNISolone SOD SUCCI 125 MG/2 ML VIAL IV SCH ×2 (05:28→11:41)
[2019-10-03 06:49] VITALS: BP 147/71; PULSE 65; RESP 16; TEMP 98.1
[2019-10-03] MEDS: THIAMINE 100 MG TAB PO SCH (06:50)
[2019-10-03] MEDS: LORATADINE 10 MG TAB PO SCH (06:50)
[2019-10-03] MEDS: PANTOPRAZOLE 40 MG TABLET PO SCH (06:50)
[2019-10-03 07:00] LABS: Glucose,Whole Blood 142 mg/dL (75-99)
[2019-10-03] MEDS: INSULIN ASPART (NovoLOG) 100 UNIT/ML VIAL SQ SCH ×2 (07:08→11:38)
[2019-10-03 07:38] LABS: ALT 17 U/L (4-49); AST 83 U/L (17-59); African American GFR (CKD) >90 (>60 ml/min/1.73 sqM); Alkaline Phosphatase 102 U/L (38-126); Anion Gap 6 mmol/L; Blood Urea Nitrogen 13 mg/dL (9-20); Calcium 7.4 mg/dL (8.4-10.2); Carbon Dioxide 28 mmol/L (22-30); Chloride 103 mmol/L (98-107); Glucose 131 mg/dL (74-99); Non-African American GFR(CKD) >90 (>60 ml/min/1.73 sqM); Potassium 3.7 mmol/L (3.5-5.1); Sodium 137 mmol/L (137-145); Total Bilirubin 2.2 mg/dL (0.2-1.3); Total Protein 7.5 g/dL (6.3-8.2)
[2019-10-03 08:00] LABS: Basophils # (A) 0.1 k/uL (0-0.2); Basophils % (A) 1 %; Eosinophils % (A) 0 %; HCT 40.4 % (39.0-53.0); HGB 13.4 gm/dL (13.0-17.5); Lymphocytes # (A) 1.5 k/uL (1.0-4.8); Lymphocytes % (A) 15 %; MCH 35.9 pg (25.0-35.0); MCHC 33.1 g/dL (31.0-37.0); MCV 108.6 fL (80.0-100.0); Macrocytosis Marked; Mean Platelet Volume 9.6; Monocytes # (A) 0.4 k/uL (0-1.0); Monocytes % (A) 4 %; Neutrophils # (A) 7.8 k/uL (1.3-7.7); Neutrophils % (A) 78 %; Platelet Count 111 k/uL (150-450); RBC 3.72 m/uL (4.30-5.90); RDW 14.9 % (11.5-15.5)
[2019-10-03] MEDS ORDERED: Potassium Replacement Protocol 1 EACH MISC MISCELLANE PRN (09:02)
[2019-10-03 09:27] LABS: Anisocytosis (M) Present
[2019-10-03 11:22] LABS: Glucose,Whole Blood 126 mg/dL (75-99)
[2019-10-03] MEDS ORDERED: KETOROLAC 30 MG/ML 1 ML VIAL IVP STA (11:48)
--- NOTE | 2019-10-03 12:00 | P.CN ---
Psychiatric Consult - . Consult date: 10/03/19 Consult:: IDENTIFYING DATA: He is a 54-year-old single male admitted to medicine with complaints of increasing pain and hand tremors. The hospitalist consult to psychiatry to evaluate depression and alcohol use problems. HISTORY OF PRESENT ILLNESS: I reviewed the medical record and interviewed the patient. I also spoke with his fiance Melissa. He was unaware of the psychiatric consult. When I explained the nature of the cost replied that he was feeling depressed before he came in hospital because he was in such pain. The pain is less severe and the tremor has abated. He stated he does not feel depressed and denied having thoughts of or suicide. She denied a history of depression or depressive symptoms. He denied a history of suicide attempts or gestures. He denied history of mental health treatment including psychiatric hospitalizations. He has a history of alcohol use problems beginning in adolescence. He has had 8 DUI citations; the last was 1 year ago. He has served time in longterm for the DUI. His license was "permanently" revoked. However he does not perceive his alcohol use as a problem. His mother and his fiance have complained to him about his alcohol use. He has attempted, unsuccessfully, to reduce his alcohol use. He admits that he becomes annoyed by his mother's criticism of his alcohol use. He does not feel guilty about his use but has consumed alcohol in the morning to steady his nerves and "open his eyes". He was in [place] "several years ago". He finds no benefit from participation in AA. He states that he only drinks beer between 6-8 beers today. His alcohol use has increased recently allegedly because of the increasing pain. He denied use of other drugs get high, help her sleep or changes mood. PAST PSYCHIATRIC HISTORY: Denied. PAST MEDICAL HISTORY: He has multiple medical problems including asthma, osteoarthritis, recurrent renal disease, peripheral neuropathy, decreased visual acuity and anus insufficiency. ALLERGIES: Known drugs ALLERGIES. SUBSTANCE USE HISTORY: See above FAMILY PSYCHIATRIC/SUBSTANCE USE HISTORY: He is unaware of family history of substance use or psychiatric problems. SOCIAL HISTORY: His born and raised in [place]. He graduated from high school. He is single and has no children. He has been disabled since 2008 due to chronic decreased visual acuity. He lives with his fiance. MENTAL STATUS EXAM: He presented as a casually groomed 54-year-old male with male pattern balding. He maintained eye contact and appeared to attend to interview. He had no prominent physical abnormalities. He had a blunted facial expression. He was alert and oriented to person, place and time. He did not him straight an obvious hand tremor. His speech was spontaneous with decreased rate, rhythm and volume. His affect was blunted and minimally reactive. He denied suicidal ideation, wishes or homicidal ideation. He denied feeling hopeless or worthless. He expressed feelings of helplessness regarding his chronic medical problems. He did not express ideas reference, paranoid ideation or delusions. His thinking was concrete but his associations were coherent and logical. He denied hallucinations and did not appear to be responding to internal stimuli. Global impression of intellect is average. He is aware of his alcohol use problem but is in the pre-contemplative stage of recovery IMPRESSIONS: Alcohol use disorder moderate, alcohol withdrawal, rule out alcohol induced mood disorder, rule out depressive disorder secondary to chronic medical illnesses, rule out major depressive disorder. PLAN: There is no indication for transfer to the psychiatric unit. The neurologist started nortriptyline 25 mg at bedtime for treatment of peripheral neuropathy. Nortriptyline is a good antidepressant and the dose may be titrated as an outpatient for the treatment of symptoms of depression and anxiety. He would benefit from substance abuse treatment but is in the pre-contemplative stage. Thank you for the consult.. 10/03/19 10:14 10/03/19 11:58
--- NOTE | 2019-10-03 15:05 | P.DS ---
Providers Date of admission: 10/01/19 16:31 Expected date of discharge: 10/03/19 Attending physician: Kaiden Solano Consults: 10/01/19 16:32 Consult Physician Urgent Consulting Provider: Iona Mcmillan Consult Reason/Comments: new onset tremor Do you want consulting provider notified?: Yes 10/02/19 11:45 Consult Physician Routine Consulting Provider: Killian Helms Consult Reason/Comments: DEPRESSION, ALCOHOL ABUSE Do you want consulting provider notified?: Yes Primary care physician: [facility] Course: Final Diagnoses: Bilateral lower extremity pain, possible alcohol induced neuropathy Mild lactic acidosis Possible opiate withdrawal secondary to patient has been taking significant amount of Howard dose over 3 week time span. Alcohol abuse, possible DTs, drinks 6-8 beers daily Coagulopathy, elevated INR on admission secondary to the above Elevated LFTs History of polysubstance abuse, per record review; patient reports only alcohol currently. Ongoing nicotine dependence Legally blind Restless leg syndrome Chronic renal failure, stage I Obesity, BMI 31.2 Right lateral ribs old fracture deformities per chest x-ray Osteoarthritis Venous insufficiency Hospital course:This is a 54-year-old gentleman, history of polysubstance abuse including alcohol abuse , legally blind, osteoarthritis and multiple other medical issues presented to the ER with worsening bilateral lower extremity pain accompanied by tremors, numbness of feet and hands. Reports leg pain has been present for greater than 8 months, over the last 3-4 weeks he has been taken to Howard dose 3 times a day which was not controlling the pain. Denies difficulty ambulating.Reports PCP started him on Lyrica, did not like how it made him feel. Medication changed to Neurontin which helped but did not totally relieve his discomfort. Complains of bilateral lower extremity edema. Denies back pain, incontinence. No fevers or chills. Denies chest pain, palpitations or shortness of breath. Denies lightheadedness dizziness or focal deficits. Received IV push Dilaudid 2 for pain management in the ER. Elevated LFTs, INR 1.4. Reports he drinks 6-8 beers daily. Lactic acid mildly elevated at 2.4. received gentle IV fluid hydration. Currently complaining of nausea, vomiting, denies abdominal pain. Tremor significantly improved with Ativan. EKG read normal sinus rhythm Venous Doppler of bilateral lower extremities, reported negative for DVT. Chest x-ray reported no acute process. Evaluated by neurology and psychiatry. Pamelor initiated as per neurology, may be doubled in dose in 1 week pending patient's tolerance. Psychiatry recommended rehab for alcohol dependence. Significant clinical improvement. Cleared by all consults for discharge. Patient is being discharged home in a stable condition with guarded prognosis. Alcohol cessation, rediscussed, along with Neurontin will be increased to 600 mg 3 times a day. Thigh-high teds to continue at home. EXAM: GENERAL: Alert and oriented 3, no acute distress, mood and affect normal, no tremors. CARDIOVASCULAR: S1, S2 regular. No murmur RESPIRATION: Coarse Breath sounds diminished in the bases. No rhonchi or crackles. No wheezing. ABDOMEN: Soft, nondistended, nontender . No guarding. no masses palpable. Bowel sounds heard NERVOUS SYSTEM: No focal deficits The impression and plan of care has been dictated as directed. : I performed a history and examination of this patient, discussed the same with the dictator. I agree with the dictator's note ,documented as a scribe. Any additional findings or plans will be noted. Patient Condition at Discharge: Stable Plan - Discharge Summary Discharge Rx Participant: Yes New Discharge Prescriptions: New Folic Acid 1 mg PO DAILY #30 tablet Multivitamins, Thera [Multivitamin (formulary)] 1 tab PO DAILY #30 tablet Thiamine [Vitamin B-1] 100 mg PO DAILY #30 tab Nortriptyline [Pamelor] 25 mg PO HS #30 cap predniSONE 10 mg PO DIRECTED #30 tab Gabapentin [Neurontin] 600 mg PO TID #9 tab Continue Albuterol Inhaler [Ventolin Hfa Inhaler] 1 - 2 puff INHALATION RT-Q6H PRN PRN Reason: Shortness Of Breath Fluticasone Nasal Harvey [Flonase Nasal Harvey] 1 spr EA NOSTRIL DAILY PRN PRN Reason: Allergy Symptoms Omeprazole 20 mg PO DAILY Cetirizine HCl [Zyrtec] 10 mg PO DAILY Discontinued HYDROcodone/APAP 10-325MG [Howard 10-325] 1 tab PO TID PRN PRN Reason: Pain Baclofen [Lioresal] 10 mg PO TID Gabapentin [Neurontin] 400 mg PO TID Discharge Medication List Albuterol Inhaler [Ventolin Hfa Inhaler] 1 - 2 puff INHALATION RT-Q6H PRN 01/30/15 [History] Cetirizine HCl [Zyrtec] 10 mg PO DAILY 10/01/19 [History] Fluticasone Nasal Harvey [Flonase Nasal Harvey] 1 spr EA NOSTRIL DAILY PRN 10/01/19 [History] Omeprazole 20 mg PO DAILY 10/01/19 [History] Folic Acid 1 mg PO DAILY #30 tablet 10/03/19 [Rx] Gabapentin [Neurontin] 600 mg PO TID #9 tab 10/03/19 [Rx] Multivitamins, Thera [Multivitamin (formulary)] 1 tab PO DAILY #30 tablet 10/03/19 [Rx] Nortriptyline [Pamelor] 25 mg PO HS #30 cap 10/03/19 [Rx] Thiamine [Vitamin B-1] 100 mg PO DAILY #30 tab 10/03/19 [Rx] predniSONE 10 mg PO DIRECTED #30 tab 10/03/19 [Rx] Follow up Appointment(s)/Referral(s): Dr. ALIRIO Psychiatry [Other] - 1 Week Romeo Renee MD [STAFF PHYSICIAN] - 10/10/19 9:00 am Ramiro Zurita Jr, DO [Primary Care Provider] - 10/06/19 10:30 am Patient Instructions/Handouts: Back Pain (ED), Leg Pain (ED) Activity/Diet/Wound Care/Special Instructions: OP MRI as per neurology. Send Thigh High teds home with patient No ETOH Substance abuse rehab Discharge Disposition: HOME SELF-CARE
== END 2019-10-03 14:37 | disposition home or self-care (01) ==
LOC: EC 11:42 → 4SSUR 16:31
PROVIDERS: ADMIT Family Medicine; ATTEND Family Medicine
DX: M79.604 Pain in right leg (principal); M79.605 Pain in left leg; M19.90 Unspecified osteoarthritis, unspecified site; H54.8 Legal blindness, as defined in USA; N18.1 Chronic kidney disease, stage 1; G25.81 Restless legs syndrome; F41.9 Anxiety disorder, unspecified; F32.9 Major depressive disorder, single episode, unspecified; J45.909 Unspecified asthma, uncomplicated; F17.200 Nicotine dependence, unspecified, uncomplicated; E87.2 Acidosis; I87.8 Other specified disorders of veins; R79.89 Other specified abnormal findings of blood chemistry; D68.9 Coagulation defect, unspecified; E66.9 Obesity, unspecified; Z68.31 Body mass index [BMI] 31.0-31.9, adult; F10.239 Alcohol dependence with withdrawal, unspecified; Z79.891 Long term (current) use of opiate analgesic; Z79.899 Other long term (current) drug therapy
CPT/HCPCS: 96376 ×4; 96361 ×2; 96365; 96366 ×2; 96372; 96375 ×3; 99285; 36415; 93005; 83880; 80053 ×3; 85652; 84443; 82550; 83605; 83735 ×2; 85025 ×2; 85027; 85610; 85730; 86140; 71045; 93970; G0378 ×3; G0480; J2060; J2930 ×3; J3411 ×2; J2405; J1885; J1170 ×2; 80329

== ENCOUNTER → 2019-10-08 | Outpatient (CLI) | payer OTHER ==
--- NOTE | 2019-10-08 13:50 | MM ---
Reason for exam: follow-up at short interval from prior study. Last mammogram was performed 2 months ago. History: Family history of breast cancer in mother at age 60 and breast cancer in maternal aunt. Physical Findings: Nurse did not find any significant physical abnormalities on exam. MG 3D Diag Mammo W/Cad RT CC and MLO view(s) were taken of the right breast. Prior study comparison: July 25, 2019, bilateral MG 3d diag mammo w/cad ZACH. Right retroareolar flamed shaped gynecomastia similar in appearance to the prior of 07/25/19. These results were verbally communicated with the patient and result sheet given to the patient on 10/08/19. ASSESSMENT: Benign, BI-RAD 2 RECOMMENDATION: Clinical management of the right breast. Manage patient on a clinical basis.
--- NOTE | 2019-10-08 13:52 | USB ---
Reason for exam: follow-up at short interval from prior study. History: Family history of breast cancer in mother at age 60 and breast cancer in maternal aunt. US Breast Limited RT Right limited breast ultrasound including focal area of concern, retroareolar and axilla demonstrates a 1.4 x 1.3 x 1.7cm hypoechoic lesion at the posterior nipple. Redemonstration of retroareolar gynecomastia. These results were verbally communicated with the patient and result sheet given to the patient on 10/08/19. ASSESSMENT: Benign, BI-RAD 2 RECOMMENDATION: Clinical management of the right breast. Manage patient on a clinical basis.
== END | disposition home or self-care (01) ==
LOC: RADMAMWWP 07:54
PROVIDERS: ATTEND Family Medicine
DX: R92.8 Other abnormal and inconclusive findings on diagnostic imaging of breast (principal); N63.10 Unspecified lump in the right breast, unspecified quadrant
CPT/HCPCS: 77065; 76642; G0279; 77061

== ENCOUNTER 2019-10-28 13:28 | Emergency (ER) | payer OTHER ==
[2019-10-28] MEDS ORDERED: ORPHENADRINE 30 MG/ML 2 ML VIAL IM STA (14:26)
[2019-10-28] MEDS ORDERED: KETOROLAC 60 MG/2 ML VIAL IM STA (14:26)
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
[2019-10-28] MEDS ORDERED: chlordiazePOXIDE 25 MG CAP PO STA (15:13)
[2019-10-28 15:19] VITALS: RESP 18
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
[2019-10-28] MEDS ORDERED: ACET/COD 300 MG/30 MG STARTER PACK 6 TAB BTL PO STA (16:15)
[2019-10-28 16:16] VITALS: BP 141/94; PULSE 106; TEMP 98
== END 2019-10-28 16:27 | disposition home or self-care (01) ==
LOC: EC 13:28
DX: S22.31XA Fracture of one rib, right side, initial encounter for closed fracture (principal); F10.10 Alcohol abuse, uncomplicated; G89.29 Other chronic pain; M79.604 Pain in right leg; M79.605 Pain in left leg; G62.9 Polyneuropathy, unspecified; J45.909 Unspecified asthma, uncomplicated; H54.8 Legal blindness, as defined in USA; M19.90 Unspecified osteoarthritis, unspecified site; F17.200 Nicotine dependence, unspecified, uncomplicated; Z79.51 Long term (current) use of inhaled steroids; Z79.891 Long term (current) use of opiate analgesic; Z79.899 Other long term (current) drug therapy; Y04.0XXA Assault by unarmed brawl or fight, initial encounter; Y93.89 Activity, other specified
CPT/HCPCS: 71101; 99284; 96372 ×2; J2360; J1885

== ENCOUNTER 2019-11-11 01:29 | Observation (INO) | payer OTHER ==
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
[2019-11-11 02:34] LABS: Basophils % (A) 0 %; Eosinophils # (A) 0.2 k/uL (0-0.7); Eosinophils % (A) 2 %; HCT 46.4 % (39.0-53.0); HGB 14.9 gm/dL (13.0-17.5); Lymphocytes % (A) 30 %; MCH 33.6 pg (25.0-35.0); MCHC 32.2 g/dL (31.0-37.0); MCV 104.4 fL (80.0-100.0); Macrocytosis Slight; Mean Platelet Volume 8.1; Monocytes # (A) 0.7 k/uL (0-1.0); Monocytes % (A) 7 %; Neutrophils % (A) 59 %; Platelet Count 202 k/uL (150-450); RBC 4.45 m/uL (4.30-5.90); RDW 13.5 % (11.5-15.5); WBC 10.3 k/uL (3.8-10.6)
[2019-11-11 02:43] LABS: African American GFR (CKD) >90 (>60 ml/min/1.73 sqM); Alcohol <10 mg/dL; Anion Gap 5 mmol/L; Blood Urea Nitrogen 6 mg/dL (9-20); Calcium 8.6 mg/dL (8.4-10.2); Carbon Dioxide 30 mmol/L (22-30); Chloride 103 mmol/L (98-107); Glucose 103 mg/dL (74-99); Magnesium 1.9 mg/dL (1.6-2.3); Non-African American GFR(CKD) >90 (>60 ml/min/1.73 sqM); Potassium 3.9 mmol/L (3.5-5.1); Sodium 138 mmol/L (137-145)
[2019-11-11] MEDS ORDERED: THIAMINE 100 MG/ML 2 ML VIAL IM STA (03:04)
[2019-11-11] MEDS ORDERED: HYDROcodone/APAP 5-325MG 1 EACH TAB PO STA (03:25)
--- NOTE | 2019-11-11 03:33 | XR ---
EXAMINATION TYPE: XR knee complete RT DATE OF EXAM: 11/11/2019 COMPARISON: NONE HISTORY: Fall. Pain. TECHNIQUE: 3 views FINDINGS: There is a lucent line over the patella on the oblique view. I do not see a definite fractu re line on the lateral view. There is no sign of a joint effusion. Joint spaces are normal. IMPRESSION: Possible nondisplaced patella fracture. This is seen on the medial inferior aspect of the patella.
--- NOTE | 2019-11-11 04:01 | CT ---
EXAMINATION TYPE: CT brain merary granados con DATE OF EXAM: 11/11/2019 COMPARISON: None HISTORY: Patient presents with head and neck pain after fall. CT DLP: 1486.9 mGycm Automated exposure control for dose reduction was used. Exam performed without contrast. There is mild cerebral cortical atrophy. There is no mass effect nor midline shift. There is no sign of intracranial hemorrhage. The calvarium is intact. There is some straightening of the cervical spine. There is mild disc space narrowing from C3 to C6 w ith spurring of the endplates. Posterior elements are intact. Facet joints are intact. There is no ev idence of a fracture. The skull base is intact. There are fibrotic changes and emphysematous bulla at the lung apices. IMPRESSION: Cerebral atrophy. No acute intracranial abnormality. Spondylotic changes in the cervical spine. No fracture seen. Pulmonary emphysema and pulmonary fibrotic changes.
--- NOTE | 2019-11-11 04:11 | CT ---
EXAMINATION TYPE: CT ChestAbdPelvis w con DATE OF EXAM: 11/11/2019 COMPARISON: Chest CT scan 01/16/2014. Abdomen CT scan 10/07/2015. HISTORY: Patient presents with chest and abdominal pain after fall. CT DLP: 898.4 mGycm Automated exposure control for dose reduction was used. CONTRAST: Performed with IV Contrast, patient injected with 100mL mL of Isovue 300. There are emphysematous bulla at the lung apices. There is coarse interstitial density in both lungs. There is bilateral basilar mild atelectasis. Heart size is normal. There is no pericardial effusion. There is no mediastinal adenopathy. There are a few paratracheal lymph nodes that measure up to 1 cm . There are no hilar masses. There is no pleural effusion. Liver shows no focal defect. Spleen is intact. Stomach appears normal. There is no pancreatic mass. G allbladder appears normal. Bile ducts are not dilated. There is no adrenal mass. Kidneys show satisfactory contrast opacification. There is no hydronephrosi s. There is no retroperitoneal adenopathy. Appendix is posterior and appears normal. There are multip le sigmoid diverticula. There is no sign of diverticulitis. Bladder distends smoothly. There is no in guinal hernia. There is no free fluid in the pelvis. There is no mesenteric edema. There is no ascites or free air. There is no sign of a bowel obstruction. Thoracic vertebra have fairly normal spacing and alignment. Sternum is intact. Bony pelvis is intact. The ribs appear intact. There is old lateral right side healed rib fracture. Shoulder joints are int act. There are fractures of the lateral and posterior right ninth and 10th and 11th ribs. Displacemen t is up to 8 mm. No pneumothorax. The bony pelvis is intact. Proximal femurs and hip joints are intac t. Sacroiliac joints appear normal. IMPRESSION: Mild emphysema. Patchy atelectasis at the lung bases is new compared to old exam. Multiple acute posterior lateral right rib fractures. Mild fibrotic changes at the lung apices. Sigmoid diverticulosis without diverticulitis.
[2019-11-11] MEDS ORDERED: ONDANSETRON 4 MG/2 ML VIAL IVP PRN (04:24)
[2019-11-11] MEDS ORDERED: NALOXONE 0.4 MG/ML 1 ML VIAL IV PRN (04:24)
[2019-11-11] MEDS: SODIUM CHLORIDE 0.9% 1,000 ML IV SCH (05:26)
[2019-11-11] MEDS: HYDROcodone/APAP 5-325MG 1 EACH TAB PO PRN ×3 (08:59→20:24)
[2019-11-11] MEDS ORDERED: FOLIC ACID 1 MG TAB PO SCH (09:00)
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
--- NOTE | 2019-11-11 13:01 | P.CNPUL ---
History of Present Illness Consult date: 11/11/19 Requesting physician: Dillan Abraham Reason for consult: abnormal CXR/CT (Multiple posterior lateral rib fractures on the right) Chief complaint: Right chest wall pain History of present illness: This is a 54-year-old gentleman with a known history of pericarditis, osteoarthritis, chronic tobacco dependence, anxiety/depression, alcohol abuse, marijuana use. He has been having issues with balance and dizziness. He had recently taken a fall in his bathroom where he states he slipped on the floor and landed on the side of the tub on his right chest. He was also having right knee pain. He denied any loss of consciousness. The pain became too much and he presented here to the emergency room early this morning. X-ray of the knee revealed a possible nondisplaced patella fracture. Computed tomography scan of the brain and C-spine revealed cerebral atrophy but no acute intracranial abnormalities. There was spent a lytic changes in the cervical spine. No fractures noted. computed tomography scan of the chest revealed emphysematous changes with bilateral lung APCs. I lateral basilar mild atelectasis. No paracardial effusion. No mediastinal adenopathy. No pleural effusion. No yuval r masses. There is noted multiple acute posterior lateral right rib fractures. He is seen today in consultation on the regular medical floor. Awake and alert in no acute distress. He is maintaining O2 saturations in the 90s on room air. He's been afebrile. Hemodynamically stable. He is currently on [place] for pain control. white count 10.3. Hemoglobin 14.9. MCV 104.4. Creatinine 0.84. Serum alcohol less than 10. Review of Systems REVIEW OF SYSTEMS: CONSTITUTIONAL: Denies any recent significant weight loss or weight gain. EYES: Denies change in vision. Legally blind. EARS, NOSE, MOUTH, THROAT: Denies headaches, denies sore throat. CARDIOVASCULAR: Positive for right-sided chest wall pain, no palpitations or syncopal episodes. RESPIRATORY: Positive for pain on inhalation. s NO hortness of breath, cough, congestion or hemoptysis. GASTROINTESTINAL: Denies change in appetite, denies abdominal pain GENITOURINARY: Denies hematuria, denies infections. MUSKULOSKELETAL: Denies pain, denies swelling. INTEGUMENTARY: Denies rash, denies eczema. NEUROLOGICAL: Denies recent memory loss, no recent seizure activity. PSYCHIATRIC: Denies anxiety, denies depression. HEMATOLOGIC/LYMPHATIC: Denies anemia, denies enlarged lymph nodes. 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 Other Hx: Unsteady gait/falls, ETOH abuse with withdrawal symptoms in the past pt states-tremors, bilateral leg pain/numbness, chronic renal disease stage I, pericarditis, bilateral macular degeneration/legally blind, chronic back pain, RLS, bilateral carpal tunnel syndrome, past infected sebaceous cyst on back History of Any Multi-Drug Resistant Organisms: None Reported Past Surgical History: Orthopedic Surgery Additional Past Surgical History / Comment(s): Right hand surgery d/t injury Past Anesthesia/Blood Transfusion Reactions: No Reported Reaction Smoking Status: Light tobacco smoker - Past Family History Father Family Medical History: Cancer Additional Family Medical History / Comment(s): Father of esophageal cancer. Mother Family Medical History: No Reported History Additional Family Medical History / Comment(s): Mopther is healthy Medications and Allergies Home Medications Medication Instructions Recorded Confirmed Type Albuterol Inhaler [Ventolin Hfa 1 - 2 puff INHALATION RT-Q6H PRN 01/30/15 11/11/19 History Inhaler] Cetirizine HCl [Zyrtec] 10 mg PO DAILY 10/01/19 11/11/19 History Fluticasone Nasal [place] [Flonase 1 spr EA NOSTRIL DAILY PRN 10/01/19 11/11/19 History Nasal [place]] Omeprazole 20 mg PO DAILY 10/01/19 11/11/19 History Folic Acid 1 mg PO DAILY #30 tablet 10/03/19 11/11/19 Rx Multivitamins, Thera [Multivitamin 1 tab PO DAILY #30 tablet 10/03/19 11/11/19 Rx (formulary)] Nortriptyline [Pamelor] 25 mg PO HS #30 cap 10/03/19 11/11/19 Rx Thiamine [Vitamin B-1] 100 mg PO DAILY #30 tab 10/03/19 11/11/19 Rx Gabapentin 600 mg PO DIRECTED 11/11/19 11/11/19 History Gabapentin [Neurontin] 400 mg PO DIRECTED 11/11/19 11/11/19 History HYDROcodone/APAP 7.5-325MG [[place] 1 tab PO TID 11/11/19 11/11/19 History 7.5-325] chlordiazePOXIDE HCl [Librium] 25 mg PO Q8H PRN 11/11/19 11/11/19 History Allergies Allergy/AdvReac Type Severity Reaction Status Date / Time No Known Allergies Allergy Verified 11/11/19 01:41 Physical Exam Vitals: Vital Signs Temp Pulse Resp BP BP Pulse Ox 11/11/19 07:00 98.2 F 20 103/65 92 L 11/11/19 06:00 99.2 F 94 18 149/76 98 11/11/19 05:05 99.2 F 94 18 101/60 94 L 11/11/19 01:35 98.5 F 102 H 16 117/75 96 Intake and Output 11/10/19 11/11/19 11/11/19 22:59 06:59 14:59 Other: Weight 86.183 kg 86.183 kg GENERAL EXAM: Alert, pleasant 54-year-old gentleman, on room air, fairly comfortable in no apparent distress. HEAD: Normocephalic. EYES: Normal reaction of pupils, equal size. NOSE: Clear with pink turbinates. THROAT: No erythema or exudates. NECK: No masses, no JVD. CHEST: No chest wall deformity. LUNGS: Equal air entry with no crackles, wheeze, rhonchi or dullness. Diminished. CVS: S1 and S2 normal with no audible murmur, regular rhythm. ABDOMEN: No hepatosplenomegaly, normal bowel sounds, no guarding or rigidity. SPINE: No scoliosis or deformity SKIN: No rashes CENTRAL NERVOUS SYSTEM: No focal deficits, tone is normal in all 4 extremities. EXTREMITIES: There is no peripheral edema. No clubbing, no cyanosis. Peripheral pulses are intact. Results - Laboratory Findings CBC and BMP: 11/11/19 02:24 11/11/19 02:24 Abnormal lab findings: Abnormal Labs 11/11/19 11/11/19 02:24 02:24 MCV 104.4 H BUN 6 L Glucose 103 H - Diagnostic Findings CT scan - chest: image reviewed Assessment and Plan Assessment: 1 Right-sided chest wall trauma secondary to fall with new posterior lateral rib fractures of 9, 10 and 11 2 Right knee pain secondary to trauma from fall with possible displaced patellar fracture 3 History of alcohol abuse with recent admission for alcoholic neuropathy, states last drink was about a week ago 4 Chronic and ongoing tobacco dependence with suspected COPD and emphysema noted on CAT scan 5 History of marijuana use 6 Legally blind 7 History of osteoarthritis 8 History of pericarditis 9 History of anxiety/depression 10 History of chronic back pain Plan The patient was seen and evaluated by Dr. Dickson CAT scan of the chest reviewed Multiple right-sided rib fractures Add incentive spirometer and encourage cough and deep breathing exercises Encouraged regarding the importance of complete smoking cessation Add NicoDerm patch We'll continue to follow I, the cosigning physician, performed a history & physical examination of the patient. Lungs sounds are clear, diminished. Maintaining good O2 saturations in the 90s on room air. I discussed the assessment and plan of care with my nurse practitioner, Pallavi Gunter. I attest to the above note as dictated by her. Time with Patient: Greater than 30
[2019-11-11] MEDS ORDERED: FLUTICASONE 50MCG/SPRAY NASAL 16GM EA NOSTRIL PRN (13:29)
[2019-11-11] MEDS ORDERED: chlordiazePOXIDE 25 MG CAP PO PRN (13:29)
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
[2019-11-11] MEDS ORDERED: GABAPENTIN 300 MG CAP PO SCH (16:00)
[2019-11-11] MEDS: GABAPENTIN 400 MG CAP PO SCH ×2 (16:43→20:25)
--- NOTE | 2019-11-11 20:00 | P.CNOR ---
History of Present Illness - [facility] Consult date: 11/11/19 History of present illness: This patient is a 54-year-old male with past medical history of renal disease, nicotine dependence, alcohol abuse, marijuana abuse that presented to [facility] on 11/11/19 with complaints of pain following a fall at home. The patient states he fell in the home while in the bathroom a few days ago. He states he landed directly onto his chest. He states he experienced immediate pain in the chest in the right knee. He states he has been unable to ambulate without pain following this injury. He states he decided to present to the emergency department due to ongoing pain. Upon arrival to the emergency department, x-rays were taken of the right knee and revealed a possible patella fracture. CT of chest out of the pelvis was also performed and revealed multiple foot fractures. The patient was admitted under the care of Dr. Abraham, with a consult placed to orthopedics for evaluation of his right knee. At the time of my exam, the patient is complaining of pain in the ribs as well as his right knee. He states his right knee pain is improved since admission. He states he is ambulating with the assistance of a walker with moderate pain in his right knee. 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 He states he has fractured both patellas in the past. He also states he has dislocated his patella. He is unable to provide additional history regarding his injuries. Patient denies additional complaints today. Vital signs stable. 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 Other Hx: Unsteady gait/falls, ETOH abuse with withdrawal symptoms in the past pt states-tremors, bilateral leg pain/numbness, chronic renal disease stage I, pericarditis, bilateral macular degeneration/legally blind, chronic back pain, RLS, bilateral carpal tunnel syndrome, past infected sebaceous cyst on back History of Any Multi-Drug Resistant Organisms: None Reported Past Surgical History: Orthopedic Surgery Additional Past Surgical History / Comment(s): Right hand surgery d/t injury Past Anesthesia/Blood Transfusion Reactions: No Reported Reaction Smoking Status: Light tobacco smoker - Past Family History Father Family Medical History: Cancer Additional Family Medical History / Comment(s): Father of esophageal cancer. Mother Family Medical History: No Reported History Additional Family Medical History / Comment(s): Mopther is healthy Medications and Allergies Home Medications Medication Instructions Recorded Confirmed Type Albuterol Inhaler [Ventolin Hfa 1 - 2 puff INHALATION RT-Q6H PRN 01/30/15 11/11/19 History Inhaler] Cetirizine HCl [Zyrtec] 10 mg PO DAILY 10/01/19 11/11/19 History Fluticasone Nasal [place] [Flonase 1 spr EA NOSTRIL DAILY PRN 10/01/19 11/11/19 History Nasal [place]] Omeprazole 20 mg PO DAILY 10/01/19 11/11/19 History Folic Acid 1 mg PO DAILY #30 tablet 10/03/19 11/11/19 Rx Multivitamins, Thera [Multivitamin 1 tab PO DAILY #30 tablet 10/03/19 11/11/19 Rx (formulary)] Nortriptyline [Pamelor] 25 mg PO HS #30 cap 10/03/19 11/11/19 Rx Thiamine [Vitamin B-1] 100 mg PO DAILY #30 tab 10/03/19 11/11/19 Rx Gabapentin [Neurontin] 400 mg PO TID 11/11/19 11/11/19 History HYDROcodone/APAP 7.5-325MG [[place] 1 tab PO TID 11/11/19 11/11/19 History 7.5-325] chlordiazePOXIDE HCl [Librium] 25 mg PO Q8H PRN 11/11/19 11/11/19 History Allergies Allergy/AdvReac Type Severity Reaction Status Date / Time No Known Allergies Allergy Verified 11/11/19 01:41 Physical Examination On examination, the patient is lying in bed in no apparent distress. He is alert and oriented 3. His head appears normocephalic and atraumatic. His breathing appears nonlabored. On inspection of the bilateral upper extremities, there is no obvious deformity or signs of trauma. On inspection of the right knee, there is no effusion appreciated. There is a very mild, superficial laceration to the anterior knee. There is no ecchymosis, erythema. There is mild pain on palpation of the patella. No pain on palpation of the medial, l ateral joint lines. No pain on palpation of the MCL, LCL. Knee appears stable. Patient is able to perform a straight leg raise without pain or issue. There is no pain on palpation of the lower leg, ankle, foot. No pain with logrolling of the hip. Motor and sensory function appear to be intact of the right lower extremity. Right lower extremities warm and well-perfused with brisk capillary refill distally. Dorsalis pedis pulse +2. Calf is soft and nontender to palpation. Results Right knee x-ray 11/11/2019: Possible chronic appearing nondisplaced fracture of the patella. - Labs Labs: Abnormal Lab Results - Last 24 Hours (Table) 11/11/19 11/11/19 Range/Units 02:24 02:24 MCV 104.4 H (80.0-100.0) fL BUN 6 L (9-20) mg/dL Glucose 103 H (74-99) mg/dL H & H 11/11/19 Range/Units 02:24 Hgb 14.9 (13.0-17.5) gm/dL Hct 46.4 (39.0-53.0) % Result Diagrams: 11/11/19 02:24 11/11/19 02:24 Assessment and Plan Assessment: Possible nondisplaced right patella fracture Plan: I explained the clinical and imaging findings with the patient. Recommended immobilization of the right knee with a knee immobilizer. He may bear to tolerance on the right knee with use of a walker. Physical therapy for gait and balance training. Medical management per admitting team. Rib fracture management per admitting team. We will continue to follow patient while he remains inpatient and make recommendations as needed. Patient discussed with Dr. Khan.
[2019-11-11] MEDS ORDERED: traZODone HCL 50 MG TAB PO SCH (21:00)
[2019-11-11] MEDS ORDERED: NORTRIPTYLINE 25 MG CAP PO SCH (21:00)
[2019-11-12] MEDS: HYDROcodone/APAP 5-325MG 1 EACH TAB PO PRN ×2 (02:40→07:39)
[2019-11-12] MEDS: SODIUM CHLORIDE 0.9% 1,000 ML IV SCH (06:08)
[2019-11-12] MEDS ORDERED: MULTIVITAMINS, THERA 1 EACH TAB PO SCH (07:30)
--- NOTE | 2019-11-12 07:36 | XR ---
EXAMINATION TYPE: XR chest 2V DATE OF EXAM: 11/12/2019 COMPARISON: CT of the chest, abdomen, and pelvis dated 11/11/2019 HISTORY: 10/28/2019 and pain TECHNIQUE: Frontal and lateral views of the chest are obtained. FINDINGS: There is chronic interstitial prominence. Platelike linear atelectasis of the left lower l romulo is new. The cardiac silhouette size is within normal limits. Old healed right posterior fourth r ib fracture is seen. Mild multilevel degenerative change of the spine. The multiple acute posterior r ight rib fractures are better evaluated on CT and appear nondisplaced. No new pleural effusion or pne umothorax. IMPRESSION: 1. New left lower lung subsegmental linear atelectasis. 2. The known multiple right nondisplaced acute posterior rib fractures are better seen on CT.
[2019-11-12] MEDS: GABAPENTIN 400 MG CAP PO SCH (07:39)
[2019-11-12] MEDS ORDERED: FOLIC ACID 1 MG TAB PO SCH (09:00)
[2019-11-12] MEDS ORDERED: LORATADINE 10 MG TAB PO SCH (09:00)
[2019-11-12] MEDS ORDERED: THIAMINE 100 MG TAB PO SCH (09:00)
--- NOTE | 2019-11-12 12:08 | P.PN ---
Subjective Progress Note Date: 11/12/19 This is a 54-year-old gentleman with a known history of pericarditis, osteoarthritis, chronic tobacco dependence, anxiety/depression, alcohol abuse, marijuana use. He has been having issues with balance and dizziness. He had recently taken a fall in his bathroom where he states he slipped on the floor and landed on the side of the tub on his right chest. He was also having right knee pain. He denied any loss of consciousness. The pain became too much and he presented here to the emergency room early this morning. X-ray of the knee revealed a possible nondisplaced patella fracture. Computed tomography scan of the brain and C-spine revealed cerebral atrophy but no acute intracranial abnormalities. There was spent a lytic changes in the cervical spine. No fractures noted. computed tomography scan of the chest revealed emphysematous changes with bilateral lung APCs. I lateral basilar mild atelectasis. No paracardial effusion. No mediastinal adenopathy. No pleural effusion. No hilar masses. There is noted multiple acute posterior lateral right rib fractures. He is seen today in consultation on the regular medical floor. Awake and alert in no acute distress. He is maintaining O2 saturations in the 90s on room air. He's been afebrile. Hemodynamically stable. He is currently on [place] for pain control. white count 10.3. Hemoglobin 14.9. MCV 104.4. Creatinine 0.84. Serum alcohol less than 10. On 11/12/2019 patient seen in follow-up on general medical floor, he is sitting up in the recliner, in no acute distress, he has a chair alarm on him to prevent him from get up unassisted, he is oriented 3, cooperative, no agitation, no signs of DTs. He is on 2 L of oxygen with a pulse ox of 96%, hemodynamically stable, afebrile, he is receiving oral medications for his right-sided rib pain, he is able to achieve 2000 on his incentive spirometer, lung sounds reveal some bibasilar crackles, no rhonchi, no wheezes, he states his pain is fairly well controlled, and is not limiting his breathing. Today's chest x-ray has been reviewed showing new left lower lung subsegmental linear atelectasis. Patient declined intercostal nerve block citing adequate pain control with current regimen of pain medications. Objective - Vital Signs Vital signs: Vital Signs Temp 97.9 F 11/12/19 05:40 Pulse 71 11/12/19 05:40 Resp 20 11/12/19 05:40 BP 92/56 11/12/19 05:40 Pulse Ox 96 11/12/19 05:40 Intake & Output 11/11/19 11/12/19 11/12/19 18:59 06:59 18:59 Intake Total 600 Balance 600 Weight 86.183 kg Intake: Oral 600 Other: # Voids 2 2 # Bowel Movements 0 - Exam GENERAL EXAM: Alert, very pleasant, 54-year-old white male, sitting up in the recliner, 3 L of oxygen with a pulse ox of 95% with a chair alarm on comfortable in no apparent distress. Right leg is in a immobilizer HEAD: Normocephalic/atraumatic. EYES: Normal reaction of pupils, equal size. Conjunctiva pink, sclera white. NOSE: Clear with pink turbinates. THROAT: No erythema or exudates. NECK: No masses, no JVD, no thyroid enlargement, no adenopathy. CHEST: No chest wall deformity. Symmetrical expansion. Right lateral chest tenderness with deep breathing and coughing related to history of broken ribs LUNGS: Equal air entry with minimal basilar crackles, but no wheeze, rhonchi or dullness. CVS: Regular rate and rhythm, normal S1 and S2, no gallops, no murmurs, no rubs ABDOMEN: Soft, nontender. No hepatosplenomegaly, normal bowel sounds, no guarding or rigidity. EXTREMITIES: No clubbing, no edema, no cyanosis, 2+ pulses and upper and lower extremities. MUSCULOSKELETAL: Muscle strength and tone normal. Right leg is in a immobilizer SPINE: No scoliosis or deformity SKIN: No rashes CENTRAL NERVOUS SYSTEM: Alert and oriented -3. No focal deficits, tone is normal in all 4 extremities. PSYCHIATRIC: Alert and oriented -3. Appropriate affect. Intact judgment and insight. - Labs CBC & Chem 7: 11/11/19 02:24 11/11/19 02:24 Assessment and Plan Plan: Assessment: 1 Right-sided chest wall trauma secondary to fall with new posterior lateral rib fractures of 9, 10 and 11 2 Right knee pain secondary to trauma from fall with possible displaced patellar fracture 3 History of alcohol abuse with recent admission for alcoholic neuropathy, states last drink was about a week ago 4 Chronic and ongoing tobacco dependence with suspected COPD and emphysema noted on CAT scan 5 History of marijuana use 6 Legally blind 7 History of osteoarthritis 8 History of pericarditis 9 History of anxiety/depression 10 History of chronic back pain Plan: Continue encouraging deep breathing and coughing, today's chest x-ray has been reviewed showing new left lung atelectasis, no evidence of pneumothorax, or focal infiltrate. Vital signs are stable, wean FiO2, encourage incentive spirometry use. He states his pain is fairly well controlled with current regimen of medications. Patient is fairly cooperative,, no agitation or anxiety, and monitoring for signs of delirium tremens. I performed a history & physical examination of the patient and discussed their management with my nurse practitioner, Mary Kay Nieto. I reviewed the nurse practitioner's note and agree with the documented findings and plan of care. Lung sounds are positive for bibasilar crackles. The findings and the impression was discussed with the patient. I attest to the documentation by the nurse practitioner. Time with Patient: Less than 30
[2019-11-12 14:46] VITALS: BP 96/67; PULSE 73; RESP 12; TEMP 97.4
--- NOTE | 2019-11-12 17:08 | P.CONS ---
History of Present Illness - Reason for Consult Consult date: 11/12/19 Medical management anxiety Requesting physician: Dillan Abraham - Chief Complaint fall,rib fx, patella fx - History of Present Illness This is a 54-year-old gentleman, history of polysubstance abuse including alcohol abuse , legally blind, osteoarthritis and multiple other medical issues presented to the ER status post fall in the shower. He reports he slipped while shaving. Denies lightheadedness dizziness or focal deficits. Denies syncope. Denies chest pain, palpitations or shortness of breath. Reports chronic back pain. No fevers or chills. Denies cough. Denies lightheadedness dizziness or focal deficits. Radiology studies reporting possible nondisplaced right patella fracture-possibly chronic, right rib fractures 9, 10, 11. Serum Alcohol level less than 10. Afebrile, and ABC 10.3. Hemoglobin 14.9, platelets 202. Electrolyte within normal limits. Creatinine 0.84, BUN 6. Evaluated by trauma surgery, orthopedic surgery and pulmonary. Pain currently controlled. Able to cough with less pain. Denies nausea vomiting or diarrhea. Denies abdominal pain. Review of Systems ROS Statement: Those systems with pertinent positive or pertinent negative responses have been documented in the HPI. ROS Other: All systems not noted in ROS Statement are negative. Past Medical History Past Medical History: Asthma, Eye Disorder, Osteoarthritis (OA), Renal Disease Additional Past Medical History / Comment(s): Pt admitted to [facility] on 10/01/19 with bilateral lower extremity pain/possible alcohol induced neuropathy/possible opiate withdrawal/alcohol abuse possible DTs/coagulopathy, elevated LFTs, venous insufficiency. Other Hx: Unsteady gait/falls, ETOH abuse with withdrawal symptoms in the past pt states-tremors, bilateral leg pain/numbness, chronic renal disease stage I, pericarditis, bilateral macular degeneration/legally blind, chronic back pain, RLS, bilateral carpal tunnel syndrome, past infected sebaceous cyst on back History of Any Multi-Drug Resistant Organisms: None Reported Past Surgical History: Orthopedic Surgery Additional Past Surgical History / Comment(s): Right hand surgery d/t injury Past Anesthesia/Blood Transfusion Reactions: No Reported Reaction Smoking Status: Light tobacco smoker - Past Family History Father Family Medical History: Cancer Additional Family Medical History / Comment(s): Father of esophageal cancer. Mother Family Medical History: No Reported History Additional Family Medical History / Comment(s): Mopther is healthy Medications and Allergies Home Medications Medication Instructions Recorded Confirmed Type Albuterol Inhaler [Ventolin Hfa 1 - 2 puff INHALATION RT-Q6H PRN 01/30/15 11/11/19 History Inhaler] Cetirizine HCl [Zyrtec] 10 mg PO DAILY 10/01/19 11/11/19 History Fluticasone Nasal [place] [Flonase 1 spr EA NOSTRIL DAILY PRN 10/01/19 11/11/19 History Nasal [place]] Omeprazole 20 mg PO DAILY 10/01/19 11/11/19 History Folic Acid 1 mg PO DAILY #30 tablet 10/03/19 11/11/19 Rx Multivitamins, Thera [Multivitamin 1 tab PO DAILY #30 tablet 10/03/19 11/11/19 Rx (formulary)] Nortriptyline [Pamelor] 25 mg PO HS #30 cap 10/03/19 11/11/19 Rx Thiamine [Vitamin B-1] 100 mg PO DAILY #30 tab 10/03/19 11/11/19 Rx Gabapentin [Neurontin] 400 mg PO TID 11/11/19 11/11/19 History HYDROcodone/APAP 7.5-325MG [[place] 1 tab PO TID 11/11/19 11/11/19 History 7.5-325] chlordiazePOXIDE HCl [Librium] 25 mg PO Q8H PRN 11/11/19 11/11/19 History Allergies Allergy/AdvReac Type Severity Reaction Status Date / Time No Known Allergies Allergy Verified 11/11/19 01:41 Physical Exam Vitals: Vital Signs Temp Pulse Resp BP Pulse Ox 11/12/19 12:17 97.4 F L 73 12 96/67 93 L 11/12/19 05:40 97.9 F 71 20 92/56 96 11/11/19 20:45 98.4 F 75 20 113/73 93 L Intake and Output 11/12/19 11/12/19 11/12/19 06:59 14:59 22:59 Intake Total 300 Balance 300 Intake: Oral 300 Other: # Voids 2 2 VITAL SIGNS: As above GENERAL: Sitting up in chair-reclined, no acute distress HEENT: Conjunctivae normal. eyes normal. Oral mucosa moist NECK: No JVD. No thyroid enlargement. No LNs CARDIOVASCULAR: S1, S2 regular. No murmur RESPIRATION: Coarse Breath sounds diminished in the bases. Minimal bibasilar crackles ABDOMEN: Soft, nondistended, nontender . No guarding. no masses palpable. No ascites, No hepatosplenomegaly.Bowel sounds heard. LEGS: Right knee immobilizer present, mild tenderness, no edema ,positive dorsalis pedis pulses. PSYCHIATRY: Alert and oriented X3, mood and affect normal. NERVOUS SYSTEM: Cranial N 2-12 grossly normal. Moves all 4 limbs. No focal deficits. Strength and sensation grossly intact. Skin: no rash Results CBC & Chem 7: 11/11/19 02:24 11/11/19 02:24 Assessment and Plan Assessment: New posterior lateral rib fractures of 9, 10 and 11 status post fall Possible nondisplaced right patella fracture, possibly chronic Chronic back pain History of Alcohol abuse History of polysubstance abuse, per record review; patient reports alcohol, marijuana use currently. History of nicotine dependence, reports he has not smoked for 4 weeks COPD, emphysema Legally blind Obesity, BMI 30.7 Right lateral ribs old fracture deformities per chest x-ray Osteoarthritis Venous insufficiency Anxiety, depression, history of, currently controlled Plan: Continue on current medication regime ,monitoring and symptomatic treatment. Home meds have been reviewed and resumed accordingly. PT/OT. Alcohol cessation reinforced .Patient is being discharged by surgery today. Follow up PCP in 2 weeks. Aggressive pulmonary toileting with incentive spirometer reinforced. Thank you Dr. Abraham for the consult. The impression and plan of care has been dictated as directed. : I performed a history and examination of this patient, discussed the same with the dictator. I agree with the dictator's note ,documented as a scribe. Any additional findings or plans will be noted.
== END 2019-11-12 14:20 | disposition home or self-care (01) ==
LOC: EC 01:29 → 6NMEDSUR 04:26
PROVIDERS: ADMIT Surgery; ATTEND Surgery
DX: S22.49XA Multiple fractures of ribs, unspecified side, initial encounter for closed fracture (principal); W18.2XXA Fall in (into) shower or empty bathtub, initial encounter; Z91.81 History of falling; G89.29 Other chronic pain; M54.9 Dorsalgia, unspecified; J45.909 Unspecified asthma, uncomplicated; N28.9 Disorder of kidney and ureter, unspecified; S37.009A Unspecified injury of unspecified kidney, initial encounter; I31.9 Disease of pericardium, unspecified; G25.81 Restless legs syndrome; F41.9 Anxiety disorder, unspecified; F32.9 Major depressive disorder, single episode, unspecified; F10.11 Alcohol abuse, in remission; F17.200 Nicotine dependence, unspecified, uncomplicated; Z98.890 Other specified postprocedural states; Z79.52 Long term (current) use of systemic steroids; Z79.899 Other long term (current) drug therapy
CPT/HCPCS: 96372; 99285; 36415; 93005; 97116; 97110; 97530; 97162; 80048; 83605; 83735; 85025; 73562; 71046; 72125; 70450; 71260; 74177; G0378 ×2; G0480; J3411; Q9967; 80320

== ENCOUNTER 2019-12-13 13:28 | Emergency (ER) | payer OTHER ==
[2019-12-13 13:35] VITALS: TEMP 98
[2019-12-13] MEDS ORDERED: SODIUM CHLORIDE 0.9% 1,000 ML IV STA (13:58)
--- NOTE | 2019-12-13 14:10 | ED ---
Nausea/Vomiting/Diarrhea HPI - General Chief complaint: Nausea/Vomiting/Diarrhea Stated complaint: Vomiting Time Seen by Provider: 12/13/19 13:36 Source: patient Mode of arrival: ambulatory Limitations: no limitations - History of Present Illness Initial comments: Patient is a 54-year-old male, with history of alcoholism and asthma, presenting to the emergency Department with complaints of a cough and nausea and diarrhea 5 days. Patient is also complaining of back pain. He states he has a history of chronic back pain and sees see his PCP for pain control. Patient denies having a fever, shortness of breath, chest pain. He does admit to mild lower abdominal discomfort. He states he is a daily drinker and smoker. He has been drinking today. He denies any vomiting today. He states he "just does not feel well." Patient has no other complaints at this time. Upon arrival to the ER his vitals are stable. - Related Data Home Medications Medication Instructions Recorded Confirmed Albuterol Inhaler (Bulk) [Ventolin 1 - 2 puff INHALATION RT-Q6H PRN 01/30/15 11/11/19 Hfa Inhaler (Bulk)] Cetirizine HCl [Zyrtec] 10 mg PO DAILY 10/01/19 11/11/19 Fluticasone Nasal [place] [Flonase 1 spr EA NOSTRIL DAILY PRN 10/01/19 11/11/19 Nasal [place]] Omeprazole 20 mg PO DAILY 10/01/19 11/11/19 Gabapentin [Neurontin] 400 mg PO TID 11/11/19 11/11/19 HYDROcodone/APAP 7.5-325MG [[place] 1 tab PO TID 11/11/19 11/11/19 7.5-325] chlordiazePOXIDE HCl [Librium] 25 mg PO Q8H PRN 11/11/19 11/11/19 Previous Rx's Medication Instructions Recorded Folic Acid 1 mg PO DAILY #30 tablet 10/03/19 Multivitamins, Thera [Multivitamin 1 tab PO DAILY #30 tablet 10/03/19 (formulary)] Nortriptyline [Pamelor] 25 mg PO HS #30 cap 10/03/19 Thiamine [Vitamin B-1] 100 mg PO DAILY #30 tab 10/03/19 Azithromycin [Zithromax Z-pack] 0 mg PO DIRECTED #1 pack 12/13/19 Allergies Allergy/AdvReac Type Severity Reaction Status Date / Time No Known Allergies Allergy Verified 12/13/19 13:35 Review of Systems ROS Statement: Those systems with pertinent positive or pertinent negative responses have been documented in the HPI. ROS Other: All systems not noted in ROS Statement are negative. Past Medical History Past Medical History: Asthma, Eye Disorder, Osteoarthritis (OA), Renal Disease Additional Past Medical History / Comment(s): Pt admitted to [facility] on 10/01/19 with bilateral lower extremity pain/possible alcohol induced neuropathy/possible opiate withdrawal/alcohol abuse possible DTs/coagulopathy, elevated LFTs, venous insufficiency. Other Hx: Unsteady gait/falls, ETOH abuse with withdrawal symptoms in the past pt states-tremors, bilateral leg pain/numbness, chronic renal disease stage I, pericarditis, bilateral macular degeneration/legally blind, chronic back pain, RLS, bilateral carpal tunnel syndrome, past infected sebaceous cyst on back History of Any Multi-Drug Resistant Organisms: None Reported Past Surgical History: Orthopedic Surgery Additional Past Surgical History / Comment(s): Right hand surgery d/t injury Past Anesthesia/Blood Transfusion Reactions: No Reported Reaction Past Psychological History: Anxiety, Depression Smoking Status: Light tobacco smoker Past Alcohol Use History: Daily Past Drug Use History: None Reported - Past Family History Father Family Medical History: Cancer Additional Family Medical History / Comment(s): Father of esophageal cancer. Mother Family Medical History: No Reported History Additional Family Medical History / Comment(s): Mopther is healthy General Exam - General Exam Comments Initial Comments: GENERAL: Well-appearing, well-nourished and in no acute distress. Patient appears slightly intoxicated. HEAD: Atraumatic, normocephalic. EYES: Pupils equal round and reactive to light, extraocular movements intact, sclera anicteric, conjunctiva are normal. ENT: TMs normal, nares patent, oropharynx clear without exudates. Moist mucous membranes. NECK: Normal range of motion, supple without lymphadenopathy or JVD. LUNGS: Breath sounds clear to auscultation bilaterally and equal. No wheezes rales or rhonchi. HEART: Regular rate and rhythm without murmurs, rubs or gallops. ABDOMEN: Mild lower abdominal discomfort on palpation, no severe pains. Soft, normoactive bowel sounds. No guarding, no rebound. No masses appreciated. : Deferred EXTREMITIES: Normal range of motion, no pitting or edema. No clubbing or cyanosis. NEUROLOGICAL: Cranial nerves II through XII grossly intact. Normal speech, normal gait. PSYCH: Normal mood, normal affect. SKIN: Warm, Dry, normal turgor, no rashes or lesions noted. Limitations: no limitations Course Vital Signs 12/13/19 12/13/19 13:32 15:30 Temperature 98 F Pulse Rate 95 77 Respiratory 18 16 Rate Blood Pressure 131/69 123/76 O2 Sat by Pulse 94 L 99 Oximetry Medical Decision Making - Medical Decision Making Patient is a 54-year-old male presenting with cough, general fatigue, nausea 5 days. Patient is an alcoholic and has been drinking today. His vitals are stable. Exam is unremarkable. Chest x-ray shows mild left infiltrate for possible pneumonia. Patient has a normal white count. Patient does have a lactic acid of 2.4 however I do not feel this is due to any kind of infection. I feel like this is due to dehydration. Patient's alcohol level is 176. AST is slightly elevated at 65. Patient received a liter of fluids and Toradol for pain control. He is stable. I discussed with patient that his symptoms are most likely related to dehydration as well as possible pneumonia. Patient will be started on a Z-[place]. Patient was counseled to increase his water intake. Patient is stable for discharge. He is in agreement this plan of care. Patient's is in the parking lot and will drive him home. Return parameters were discussed with the patient he verbalizes understanding. Case discussed with Dr. Shen. - Lab Data Result diagrams: 12/13/19 14:00 12/13/19 14:00 Lab Results 12/13/19 12/13/19 12/13/19 Range/Units 14:00 14:00 14:00 WBC 10.6 (3.8-10.6) k/uL RBC 4.74 (4.30-5.90) m/uL Hgb 15.1 (13.0-17.5) gm/dL Hct 45.5 (39.0-53.0) % MCV 96.2 D (80.0-100.0) fL MCH 32.0 (25.0-35.0) pg MCHC 33.3 (31.0-37.0) g/dL RDW 13.1 (11.5-15.5) % Plt Count 145 L (150-450) k/uL Neutrophils % 52 % Lymphocytes % 40 % Monocytes % 4 % Eosinophils % 1 % Basophils % 0 % Neutrophils # 5.5 (1.3-7.7) k/uL Lymphocytes # 4.3 (1.0-4.8) k/uL Monocytes # 0.4 (0-1.0) k/uL Eosinophils # 0.1 (0-0.7) k/uL Basophils # 0.0 (0-0.2) k/uL PT 21.7 H (9.0-12.0) sec INR 2.2 H (<1.2) APTT 35.4 H (22.0-30.0) sec Sodium 137 (137-145) mmol/L Potassium 3.5 (3.5-5.1) mmol/L Chloride 101 (98-107) mmol/L Carbon Dioxide 24 (22-30) mmol/L Anion Gap 12 mmol/L BUN <2 L (9-20) mg/dL Creatinine 0.63 L (0.66-1.25) mg/dL Est GFR (CKD-EPI)AfAm >90 (>60 ml/min/1.73 sqM) Est GFR (CKD-EPI)NonAf >90 (>60 ml/min/1.73 sqM) Glucose 118 H (74-99) mg/dL Plasma Lactic Acid [place] (0.7-2.0) mmol/L Calcium 8.2 L (8.4-10.2) mg/dL Magnesium 1.8 (1.6-2.3) mg/dL Total Bilirubin 0.9 (0.2-1.3) mg/dL AST 65 H (17-59) U/L ALT 16 (4-49) U/L Alkaline Phosphatase 125 (38-126) U/L Total Protein 7.8 (6.3-8.2) g/dL Albumin 3.4 L (3.5-5.0) g/dL Lipase 151 (23-300) U/L Serum Alcohol 176 mg/dL 12/13/19 Range/Units 14:00 WBC (3.8-10.6) k/uL RBC (4.30-5.90) m/uL Hgb (13.0-17.5) gm/dL Hct (39.0-53.0) % MCV (80.0-100.0) fL MCH (25.0-35.0) pg MCHC (31.0-37.0) g/dL RDW (11.5-15.5) % Plt Count (150-450) k/uL Neutrophils % % Lymphocytes % % Monocytes % % Eosinophils % % Basophils % % Neutrophils # (1.3-7.7) k/uL Lymphocytes # (1.0-4.8) k/uL Monocytes # (0-1.0) k/uL Eosinophils # (0-0.7) k/uL Basophils # (0-0.2) k/uL PT (9.0-12.0) sec INR (<1.2) APTT (22.0-30.0) sec Sodium (137-145) mmol/L Potassium (3.5-5.1) mmol/L Chloride (98-107) mmol/L Carbon Dioxide (22-30) mmol/L Anion Gap mmol/L BUN (9-20) mg/dL Creatinine (0.66-1.25) mg/dL Est GFR (CKD-EPI)AfAm (>60 ml/min/1.73 sqM) Est GFR (CKD-EPI)NonAf (>60 ml/min/1.73 sqM) Glucose (74-99) mg/dL Plasma Lactic Acid [place] 2.4 H* (0.7-2.0) mmol/L Calcium (8.4-10.2) mg/dL Magnesium (1.6-2.3) mg/dL Total Bilirubin (0.2-1.3) mg/dL AST (17-59) U/L ALT (4-49) U/L Alkaline Phosphatase (38-126) U/L Total Protein (6.3-8.2) g/dL Albumin (3.5-5.0) g/dL Lipase (23-300) U/L Serum Alcohol mg/dL Disposition Clinical Impression: Dehydration, Pneumonia, Alcohol abuse, daily use Disposition: HOME SELF-CARE Condition: Stable Instructions (If sedation given, give patient instructions): Pneumonia (ED) Additional Instructions: Please return to the Emergency Department if symptoms worsen or any other concerns. Take antibiotics as prescribed. Increase water intake. Follow-up with PCP. Prescriptions: Azithromycin [Zithromax Z-pack] 0 mg PO DIRECTED #1 pack Is patient prescribed a controlled substance at d/c from ED?: No Referrals: Ramiro Zurita Jr, DO [Primary Care Provider] - 1-2 days
[2019-12-13 14:14] LABS: Basophils % (A) 0 %; Eosinophils # (A) 0.1 k/uL (0-0.7); Eosinophils % (A) 1 %; HCT 45.5 % (39.0-53.0); HGB 15.1 gm/dL (13.0-17.5); Lymphocytes # (A) 4.3 k/uL (1.0-4.8); Lymphocytes % (A) 40 %; MCHC 33.3 g/dL (31.0-37.0); Mean Platelet Volume 7.5; Monocytes # (A) 0.4 k/uL (0-1.0); Monocytes % (A) 4 %; Neutrophils # (A) 5.5 k/uL (1.3-7.7); Neutrophils % (A) 52 %; Platelet Count 145 k/uL (150-450); RBC 4.74 m/uL (4.30-5.90); RDW 13.1 % (11.5-15.5); WBC 10.6 k/uL (3.8-10.6)
[2019-12-13 14:16] LABS: MCV 96.2 fL (80.0-100.0)
[2019-12-13 14:20] LABS: ALT 16 U/L (4-49); AST 65 U/L (17-59); African American GFR (CKD) >90 (>60 ml/min/1.73 sqM); Albumin 3.4 g/dL (3.5-5.0); Alkaline Phosphatase 125 U/L (38-126); Anion Gap 12 mmol/L; Blood Urea Nitrogen <2 mg/dL (9-20); Calcium 8.2 mg/dL (8.4-10.2); Carbon Dioxide 24 mmol/L (22-30); Chloride 101 mmol/L (98-107); Glucose 118 mg/dL (74-99); Magnesium 1.8 mg/dL (1.6-2.3); Non-African American GFR(CKD) >90 (>60 ml/min/1.73 sqM); Potassium 3.5 mmol/L (3.5-5.1); Sodium 137 mmol/L (137-145); Total Bilirubin 0.9 mg/dL (0.2-1.3); Total Protein 7.8 g/dL (6.3-8.2)
[2019-12-13 14:25] LABS: INR 2.2 (<1.2); Partial Thromboplastin Time 35.4 sec (22.0-30.0); Prothrombin Time 21.7 sec (9.0-12.0)
[2019-12-13 14:28] LABS: Alcohol 176 mg/dL
--- NOTE | 2019-12-13 14:47 | XR ---
EXAMINATION TYPE: XR chest 1V portable DATE OF EXAM: 12/13/2019 COMPARISON: 11/12/2019 HISTORY: Chest pain. Trauma. There is no heart failure. There is a small infiltrate in the left midlung probably in the left lower lobe. There is coarsening of the interstitial markings. There is suboptimal inspiration. I see no pl eural effusion or pneumothorax. Trachea is midline. IMPRESSION: Small infiltrate or atelectasis left lower lobe. There is probably mild pulmonary fibrosi s. Poor inspiration.
[2019-12-13] MEDS ORDERED: KETOROLAC 30 MG/ML 1 ML VIAL IVP STA (15:01)
[2019-12-13 15:38] VITALS: BP 123/76; PULSE 77; RESP 16
== END 2019-12-13 16:02 | disposition home or self-care (01) ==
LOC: EC 13:28
DX: J18.9 Pneumonia, unspecified organism (principal); E86.0 Dehydration; F10.10 Alcohol abuse, uncomplicated; F17.210 Nicotine dependence, cigarettes, uncomplicated; Y90.6 Blood alcohol level of 120-199 mg/100 ml; R74.0 Nonspecific elevation of levels of transaminase and lactic acid dehydrogenase [LDH]; J45.909 Unspecified asthma, uncomplicated; M19.90 Unspecified osteoarthritis, unspecified site; R26.81 Unsteadiness on feet; G25.81 Restless legs syndrome; G89.29 Other chronic pain; M54.9 Dorsalgia, unspecified; N18.1 Chronic kidney disease, stage 1; Z79.891 Long term (current) use of opiate analgesic; Z79.899 Other long term (current) drug therapy; Z79.51 Long term (current) use of inhaled steroids
CPT/HCPCS: 36415; 80053; 83605; 83690; 83735; 85025; 85610; 85730; 71045; 99284; 96374; 96361; G0480; J1885; 80320

== ENCOUNTER 2020-02-22 13:45 | Inpatient (IN) | payer OTHER ==
[2020-02-22] MEDS ORDERED: SODIUM CHLORIDE 0.9% 1,000 ML IV STA ×3 (13:51→16:02)
[2020-02-22] MEDS ORDERED: THIAMINE 100 MG/ML 2 ML VIAL IVP STA (13:51)
--- NOTE | 2020-02-22 14:00 | ED ---
General Adult HPI - General Chief complaint: Altered Mental Status Stated complaint: AMS Time Seen by Provider: 02/22/20 13:46 Source: patient, EMS, RN notes reviewed Mode of arrival: EMS Limitations: altered mental status, physical limitation - History of Present Illness Initial comments: Patient is a pleasant 54-year-old male presenting to the emergency department with EMS for change in mental status. Patient is a poor historian and has limited ability to provide history. Supposedly symptoms have been occurring for a couple of days. Patient is normally a daily drinker. Unclear if history of similar symptoms previously. - Related Data Home Medications Medication Instructions Recorded Confirmed Cetirizine HCl [Zyrtec] 10 mg PO DAILY 10/01/19 02/22/20 Omeprazole 20 mg PO DAILY 10/01/19 02/22/20 Albuterol Inhaler [Ventolin Hfa 1 - 2 puff INHALATION RT-Q4H PRN 02/22/20 02/22/20 Inhaler] Previous Rx's Medication Instructions Recorded Folic Acid 1 mg PO DAILY #30 tablet 10/03/19 Multivitamins, Thera [Multivitamin 1 tab PO DAILY #30 tablet 10/03/19 (formulary)] Thiamine [Vitamin B-1] 100 mg PO DAILY #30 tab 10/03/19 Allergies Allergy/AdvReac Type Severity Reaction Status Date / Time No Known Allergies Allergy Verified 02/22/20 14:27 Review of Systems ROS Statement: Those systems with pertinent positive or pertinent negative responses have been documented in the HPI. ROS Other: All systems not noted in ROS Statement are negative. 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 Other Hx: Unsteady gait/falls, ETOH abuse with withdrawal symptoms in the past pt states-tremors, bilateral leg pain/numbness, chronic renal disease stage I, pericarditis, bilateral macular degeneration/legally blind, chronic back pain, RLS, bilateral carpal tunnel syndrome, past infected sebaceous cyst on back History of Any Multi-Drug Resistant Organisms: None Reported Past Surgical History: Orthopedic Surgery Additional Past Surgical History / Comment(s): Right hand surgery d/t injury Past Anesthesia/Blood Transfusion Reactions: No Reported Reaction Past Psychological History: Anxiety, Depression Smoking Status: Light tobacco smoker Past Alcohol Use History: Abuse, Daily Past Drug Use History: None Reported - Past Family History Father Family Medical History: Cancer Additional Family Medical History / Comment(s): Father of esophageal cancer. Mother Family Medical History: No Reported History Additional Family Medical History / Comment(s): Mopther is healthy General Exam Limitations: altered mental status General appearance: alert Head exam: Present: normocephalic Eye exam: Present: scleral icterus ENT exam: Present: normal oropharynx Neck exam: Present: normal inspection Respiratory exam: Present: wheezes Cardiovascular Exam: Present: tachycardia GI/Abdominal exam: Present: soft, distended (Moderate distention/ascites), tenderness (Mild tenderness, mostly in the upper/right abdomen), normal bowel sounds. Absent: guarding, rebound, rigid, pulsatile mass Extremities exam: Present: other (Right foot with dorsal swelling and ecchymosis) Neurological exam: Present: alert Psychiatric exam: Present: normal affect, normal mood Skin exam: Present: other (Jaundice) Course Vital Signs 02/22/20 02/22/20 02/22/20 13:54 14:38 15:06 Temperature 99.4 F Pulse Rate 116 H 116 H 111 H Respiratory 26 H 22 24 Rate Blood Pressure 102/63 108/59 128/64 O2 Sat by Pulse 89 L 99 92 L Oximetry - Reevaluation(s) Reevaluation #1: 02/22/20 16:03 Patient is provided fluid bolus based off a deal body weight of 67.1 kg turning out to be 2050 mL. Patient was provided 2500 mL. Patient does meet sepsis criteria diagnosed at 1600. Blood culture, lactic acid, and IV antibiotics ordered. Patient reevaluated. Patient and family updated on results and plan. Dr. Arzola has been paged for admission of his patient. 02/22/20 16:11 Case was discussed in detail with Dr. Solano, who will admit. Case also discussed with Dr. Gaxiola who will consult for critical care and agrees with ICU admission. GI will also be placed on consult. Patient will be provided for units FFP and Zosyn is advised by marilou EKG Findings - EKG Comments: EKG Findings:: sinus tachycardia 114.DE 138. QRS 78. QT 352. QTC 485. Normal axis. Low QRS voltage. No acute ST change. Medical Decision Making - Lab Data Result diagrams: 02/22/20 14:13 02/22/20 14:13 Lab Results 02/22/20 02/22/20 02/22/20 Range/Units 14:13 14:13 14:13 WBC 14.5 H (3.8-10.6) k/uL RBC 2.17 L (4.30-5.90) m/uL Hgb 8.3 L (13.0-17.5) gm/dL Hct 24.3 L (39.0-53.0) % MCV 111.7 H (80.0-100.0) fL MCH 38.3 H (25.0-35.0) pg MCHC 34.3 (31.0-37.0) g/dL RDW 20.6 H (11.5-15.5) % Plt Count 86 L (150-450) k/uL Neutrophils % (Manual) 85 % Lymphocytes % (Manual) 11 % Monocytes % (Manual) 4 % Neutrophils # (Manual) 12.33 H (1.3-7.7) k/uL Lymphocytes # (Manual) 1.60 (1.0-4.8) k/uL Monocytes # (Manual) 0.58 (0-1.0) k/uL Nucleated RBCs 0 (0-0) /100 WBC Manual Slide Review Performed Polychromasia Present Anisocytosis Moderate Anisocytosis (manual) Present Macrocytosis Marked A Stomatocytes Present PT 35.9 H (9.0-12.0) sec INR 3.7 H (<1.2) APTT 46.0 H (22.0-30.0) sec Sodium (137-145) mmol/L Potassium (3.5-5.1) mmol/L Chloride (98-107) mmol/L Carbon Dioxide (22-30) mmol/L Anion Gap mmol/L BUN (9-20) mg/dL Creatinine (0.66-1.25) mg/dL Est GFR (CKD-EPI)AfAm (>60 ml/min/1.73 sqM) Est GFR (CKD-EPI)NonAf (>60 ml/min/1.73 sqM) Glucose (74-99) mg/dL Plasma Lactic Acid Praveen (0.7-2.0) mmol/L Calcium (8.4-10.2) mg/dL Total Bilirubin (0.2-1.3) mg/dL AST (17-59) U/L ALT (4-49) U/L Alkaline Phosphatase (38-126) U/L Ammonia (<30) umol/L Troponin I (0.000-0.034) ng/mL Total Protein (6.3-8.2) g/dL Albumin (3.5-5.0) g/dL Amylase (30-110) U/L Lipase (23-300) U/L Urine Color Dark Brown Urine Appearance Cloudy (Clear) Urine pH 6.0 (5.0-8.0) Ur Specific [place] 1.020 (1.001-1.035) Urine Protein 1+ H (Negative) Urine Glucose (UA) Negative (Negative) Urine Ketones 1+ H (Negative) Urine Blood Negative (Negative) Urine Nitrite Negative (Negative) Urine Bilirubin 4+ H (Negative) Urine Urobilinogen 8.0 (<2.0) mg/dL Ur Leukocyte Esterase Trace H (Negative) Urine WBC 2 (0-5) /hpf Ur Squamous Epith Cells 3 (0-4) /hpf Amorphous Sediment Moderate H (None) /hpf Urine Bacteria Occasional H (None) /hpf Hyaline Casts 2 (0-2) /lpf Urine Mucus Few H (None) /hpf Stool Occult Blood (Negative) Urine Opiates Screen Not Detected (NotDetected) Ur Oxycodone Screen Not Detected (NotDetected) Urine Methadone Screen Not Detected (NotDetected) Ur Propoxyphene Screen Not Detected (NotDetected) Ur Barbiturates Screen Not Detected (NotDetected) U Tricyclic Antidepress Detected H (NotDetected) Ur Phencyclidine Scrn Not Detected (NotDetected) Ur Amphetamines Screen Not Detected (NotDetected) U Methamphetamines Scrn Not Detected (NotDetected) U Benzodiazepines Scrn Detected H (NotDetected) Urine Cocaine Screen Not Detected (NotDetected) U Marijuana (THC) Screen Not Detected (NotDetected) Serum Alcohol mg/dL 02/22/20 02/22/20 02/22/20 Range/Units 14:13 14:13 14:13 WBC (3.8-10.6) k/uL RBC (4.30-5.90) m/uL Hgb (13.0-17.5) gm/dL Hct (39.0-53.0) % MCV (80.0-100.0) fL MCH (25.0-35.0) pg MCHC (31.0-37.0) g/dL RDW (11.5-15.5) % Plt Count (150-450) k/uL Neutrophils % (Manual) % Lymphocytes % (Manual) % Monocytes % (Manual) % Neutrophils # (Manual) (1.3-7.7) k/uL Lymphocytes # (Manual) (1.0-4.8) k/uL Monocytes # (Manual) (0-1.0) k/uL Nucleated RBCs (0-0) /100 WBC Manual Slide Review Polychromasia Anisocytosis Anisocytosis (manual) Macrocytosis Stomatocytes PT (9.0-12.0) sec INR (<1.2) APTT (22.0-30.0) sec Sodium 131 L (137-145) mmol/L Potassium 4.3 (3.5-5.1) mmol/L Chloride 103 (98-107) mmol/L Carbon Dioxide 23 (22-30) mmol/L Anion Gap 5 mmol/L BUN 29 H (9-20) mg/dL Creatinine 1.05 (0.66-1.25) mg/dL Est GFR (CKD-EPI)AfAm >90 (>60 ml/min/1.73 sqM) Est GFR (CKD-EPI)NonAf 80 (>60 ml/min/1.73 sqM) Glucose 101 H (74-99) mg/dL Plasma Lactic Acid Praveen 2.6 H* (0.7-2.0) mmol/L Calcium 7.4 L (8.4-10.2) mg/dL Total Bilirubin 16.1 H* (0.2-1.3) mg/dL AST 137 H (17-59) U/L ALT 38 (4-49) U/L Alkaline Phosphatase 138 H (38-126) U/L Ammonia 91 H (<30) umol/L Troponin I <0.012 (0.000-0.034) ng/mL Total Protein 6.8 (6.3-8.2) g/dL Albumin 2.3 L (3.5-5.0) g/dL Amylase <30 L (30-110) U/L Lipase 83 (23-300) U/L Urine Color Urine Appearance (Clear) Urine pH (5.0-8.0) Ur Specific [place] (1.001-1.035) Urine Protein (Negative) Urine Glucose (UA) (Negative) Urine Ketones (Negative) Urine Blood (Negative) Urine Nitrite (Negative) Urine Bilirubin (Negative) Urine Urobilinogen (<2.0) mg/dL Ur Leukocyte Esterase (Negative) Urine WBC (0-5) /hpf Ur Squamous Epith Cells (0-4) /hpf Amorphous Sediment (None) /hpf Urine Bacteria (None) /hpf Hyaline Casts (0-2) /lpf Urine Mucus (None) /hpf Stool Occult Blood (Negative) Urine Opiates Screen (NotDetected) Ur Oxycodone Screen (NotDetected) Urine Methadone Screen (NotDetected) Ur Propoxyphene Screen (NotDetected) Ur Barbiturates Screen (NotDetected) U Tricyclic Antidepress (NotDetected) Ur Phencyclidine Scrn (NotDetected) Ur Amphetamines Screen (NotDetected) U Methamphetamines Scrn (NotDetected) U Benzodiazepines Scrn (NotDetected) Urine Cocaine Screen (NotDetected) U Marijuana (THC) Screen (NotDetected) Serum Alcohol <10 mg/dL 02/22/20 Range/Units 14:13 WBC (3.8-10.6) k/uL RBC (4.30-5.90) m/uL Hgb (13.0-17.5) gm/dL Hct (39.0-53.0) % MCV (80.0-100.0) fL MCH (25.0-35.0) pg MCHC (31.0-37.0) g/dL RDW (11.5-15.5) % Plt Count (150-450) k/uL Neutrophils % (Manual) % Lymphocytes % (Manual) % Monocytes % (Manual) % Neutrophils # (Manual) (1.3-7.7) k/uL Lymphocytes # (Manual) (1.0-4.8) k/uL Monocytes # (Manual) (0-1.0) k/uL Nucleated RBCs (0-0) /100 WBC Manual Slide Review Polychromasia Anisocytosis Anisocytosis (manual) Macrocytosis Stomatocytes PT (9.0-12.0) sec INR (<1.2) APTT (22.0-30.0) sec Sodium (137-145) mmol/L Potassium (3.5-5.1) mmol/L Chloride (98-107) mmol/L Carbon Dioxide (22-30) mmol/L Anion Gap mmol/L BUN (9-20) mg/dL Creatinine (0.66-1.25) mg/dL Est GFR (CKD-EPI)AfAm (>60 ml/min/1.73 sqM) Est GFR (CKD-EPI)NonAf (>60 ml/min/1.73 sqM) Glucose (74-99) mg/dL Plasma Lactic Acid Praveen (0.7-2.0) mmol/L Calcium (8.4-10.2) mg/dL Total Bilirubin (0.2-1.3) mg/dL AST (17-59) U/L ALT (4-49) U/L Alkaline Phosphatase (38-126) U/L Ammonia (<30) umol/L Troponin I (0.000-0.034) ng/mL Total Protein (6.3-8.2) g/dL Albumin (3.5-5.0) g/dL Amylase (30-110) U/L Lipase (23-300) U/L Urine Color Urine Appearance (Clear) Urine pH (5.0-8.0) Ur Specific [place] (1.001-1.035) Urine Protein (Negative) Urine Glucose (UA) (Negative) Urine Ketones (Negative) Urine Blood (Negative) Urine Nitrite (Negative) Urine Bilirubin (Negative) Urine Urobilinogen (<2.0) mg/dL Ur Leukocyte Esterase (Negative) Urine WBC (0-5) /hpf Ur Squamous Epith Cells (0-4) /hpf Amorphous Sediment (None) /hpf Urine Bacteria (None) /hpf Hyaline Casts (0-2) /lpf Urine Mucus (None) /hpf Stool Occult Blood Positive (Negative) Urine Opiates Screen (NotDetected) Ur Oxycodone Screen (NotDetected) Urine Methadone Screen (NotDetected) Ur Propoxyphene Screen (NotDetected) Ur Barbiturates Screen (NotDetected) U Tricyclic Antidepress (NotDetected) Ur Phencyclidine Scrn (NotDetected) Ur Amphetamines Screen (NotDetected) U Methamphetamines Scrn (NotDetected) U Benzodiazepines Scrn (NotDetected) Urine Cocaine Screen (NotDetected) U Marijuana (THC) Screen (NotDetected) Serum Alcohol mg/dL - Radiology Data Radiology results: report reviewed (Abdominal ultrasound shows ascites. No dilated ducts. No gallstones. Computed tomography scan of the brain shows atrophy. No acute abnormality.), image reviewed (Two-view chest x-ray shows p ulmonary interstitial infiltrates. Both lungs. Abdominal x-ray shows nonacute abdomen. X-ray of the right foot shows no fracture.) Critical Care Time Critical Care Time: Yes Total Critical Care Time: 45 Disposition Clinical Impression: Hepatic encephalopathy, Liver failure, Pneumonia, GI hemorrhage, Sepsis Disposition: ADMITTED IP TO THIS [facility] Condition: Critical Is patient prescribed a controlled substance at d/c from ED?: No Referrals: Ramiro Zurita Jr, DO [Primary Care Provider] - 1-2 days Decision Time: 16:05
[2020-02-22 14:38] LABS: ALT 38 U/L (4-49); AST 137 U/L (17-59); African American GFR (CKD) >90 (>60 ml/min/1.73 sqM); Albumin 2.3 g/dL (3.5-5.0); Alcohol <10 mg/dL; Alkaline Phosphatase 138 U/L (38-126); Amylase <30 U/L (30-110); Anion Gap 5 mmol/L; Blood Urea Nitrogen 29 mg/dL (9-20); Calcium 7.4 mg/dL (8.4-10.2); Carbon Dioxide 23 mmol/L (22-30); Chloride 103 mmol/L (98-107); Glucose 101 mg/dL (74-99); Non-African American GFR(CKD) 80 (>60 ml/min/1.73 sqM); Potassium 4.3 mmol/L (3.5-5.1); Sodium 131 mmol/L (137-145); Total Protein 6.8 g/dL (6.3-8.2)
[2020-02-22 14:40] LABS: Amorphous Sediment,Urine Moderate /hpf; Appearance,Urine Cloudy (Clear); Bacteria,Urine Occasional /hpf; Bilirubin,Urine 4+ (Negative); Blood,Urine Negative (Negative); Color,Urine Dark Brown; Glucose,Urine (UA) Negative (Negative); Hyaline Casts,Urine 2 /lpf (0-2); Ketones,Urine 1+ (Negative); Leukocyte Esterase,Urine Trace (Negative); Mucus,Urine Few /hpf; Nitrite,Urine Negative (Negative); Protein,Urine 1+ (Negative); Squamous Epithelial Cell,Urine 3 /hpf (0-4); WBC,Urine 2 /hpf (0-5)
[2020-02-22 14:48] LABS: Anisocytosis Moderate; HCT 24.3 % (39.0-53.0); HGB 8.3 gm/dL (13.0-17.5); Lactic Acid, Venous 2.6 mmol/L (0.7-2.0); MCH 38.3 pg (25.0-35.0); MCHC 34.3 g/dL (31.0-37.0); MCV 111.7 fL (80.0-100.0); Macrocytosis Marked; RBC 2.17 m/uL (4.30-5.90); RDW 20.6 % (11.5-15.5); Total Bilirubin 16.1 mg/dL (0.2-1.3); WBC 14.5 k/uL (3.8-10.6)
[2020-02-22 14:50] LABS: Platelet Count 86 k/uL (150-450)
[2020-02-22 14:53] LABS: Amphetamine Screen,Urine Not Detected (NotDetected); Benzodiazepines Screen,Urine Detected (NotDetected); Cocaine Screen,Urine Not Detected (NotDetected); Opiate Screen,Urine Not Detected (NotDetected); Phencyclidine Screen,Urine Not Detected (NotDetected); Tricyclic Antidepressant,Urine Detected (NotDetected); Urn Cannabinoid Scrn Not Detected (NotDetected)
[2020-02-22 14:54] LABS: Barbiturate Screen,Urine Not Detected (NotDetected); INR 3.7 (<1.2); Methadone Screen, Urine Not Detected (NotDetected); Oxycodone Screen, Urine Not Detected (NotDetected); Prothrombin Time 35.9 sec (9.0-12.0)
[2020-02-22 15:12] LABS: Anisocytosis (M) Present; Monocytes # (M) 0.58 k/uL (0-1.0); Neutrophils # (M) 12.33 k/uL (1.3-7.7); Neutrophils % (M) 85 %; Nucleated Red Blood Cells 0 /100 WBC (0-0); Polychromasia Present; Stomatocytes Present; Total Cells Counted 100
--- NOTE | 2020-02-22 15:12 | CT ---
EXAMINATION TYPE: CT brain wo con DATE OF EXAM: 02/22/2020 COMPARISON: 11/11/2019 HISTORY: AMS CT DLP: 1137.4 mGycm Automated exposure control for dose reduction was used. Ventricles have normal size. There is no mass effect nor midline shift. There is no sign of intracran ial hemorrhage. There is mild cerebral atrophy. Calvarium is intact. IMPRESSION: Mild cerebral atrophy. No acute intracranial abnormality.
--- NOTE | 2020-02-22 15:18 | XR ---
EXAMINATION TYPE: XR abdomen 1V DATE OF EXAM: 02/22/2020 COMPARISON: NONE HISTORY: Abdominal pain TECHNIQUE: 2 views supine FINDINGS: Bowel gas pattern is normal. There is no sign of intestinal obstruction or pneumoperitoneum . Fecal pattern is fairly normal. There is gas in the rectum. There is no evidence of a mass. Lung ba ses are clear. IMPRESSION: Nonacute abdomen.
--- NOTE | 2020-02-22 15:20 | XR ---
EXAMINATION TYPE: XR foot complete RT DATE OF EXAM: 02/22/2020 COMPARISON: NONE HISTORY: Foot pain. Injury. TECHNIQUE: 3 views. FINDINGS: I see no fracture nor dislocation. Metatarsals appear intact. There is some soft tissue swe lling of the dorsum of the foot. The toes appear intact. Hindfoot is intact. IMPRESSION: Soft tissue swelling. No fracture.
--- NOTE | 2020-02-22 15:21 | XR ---
EXAMINATION TYPE: XR chest 2V DATE OF EXAM: 02/22/2020 COMPARISON: 12/13/2019 HISTORY: Cough TECHNIQUE: 2 views FINDINGS: There is poor inspiration and elevation of the right diaphragm. There is some mild coarse i nterstitial infiltrate in both lungs. There is no pleural effusion. Bony thorax is intact. There are chest leads. IMPRESSION: There are new pulmonary interstitial infiltrates with decreased inspiration compared to o ld exam. No pleural fluid seen to suggest heart failure.
--- NOTE | 2020-02-22 15:53 | US ---
EXAMINATION TYPE: US gallbladder DATE OF EXAM: 02/22/2020 COMPARISON: CT 2019, US 2017 CLINICAL HISTORY: abp. abdominal distention EXAM MEASUREMENTS: Liver Length: 18.7 cm Gallbladder Wall: 0.3 cm CBD: not definitely seen Right Kidney: 9.9 x 5.4 x 5.8 cm cm Patient not cooperative for test. Limited evaluation. Pancreas: not visualized due to bowel gas Liver: enlarged at 18.7 cm. Gallbladder: No stones seen Evidence for sonographic Carrasquillo's sign: No CBD: not definitely seen, no intraductal dilatation noted Right Kidney: No hydronephrosis or masses seen Free fluid noted surrounding liver. IMPRESSION: There is abdominal ascites. No dilated ducts. No gallstones.
[2020-02-22] MEDS ORDERED: SODIUM CHLORIDE 0.9% 500 ML 500 ML IV STA (16:02)
[2020-02-22] MEDS ORDERED: ACETAMINOPHEN SUPPOSITORY 650 MG SUPP RECTAL STA (16:07)
[2020-02-22] MEDS ORDERED: ACETAMINOPHEN TAB 325 MG TAB PO STA (16:08)
[2020-02-22] MEDS ORDERED: NALOXONE 0.4 MG/ML 1 ML VIAL IV PRN (16:12)
[2020-02-22] MEDS ORDERED: LEVOFLOXACIN 750MG-D5W PMX 750 MG in DEXTROSE/WATER 1 150ML.BAG IVPB STA (16:14)
[2020-02-22] MEDS ORDERED: PNEUMONIA PROTOCOL UTILIZED 1 EACH MISC PO PRN (16:14)
[2020-02-22] MEDS ORDERED: PIPERACILLIN-TAZOBACTAM 3.375 GM in SODIUM CHLORIDE 0.9% 100 ML IVPB STA (16:14)
[2020-02-22] MEDS: LACTULOSE 20 GM/30 ML CUP PO SCH (16:21)
[2020-02-22] MEDS: PANTOPRAZOLE 40 MG/10 ML VIAL IVP SCH (16:26)
[2020-02-22 16:52] LABS: Glucose,Whole Blood 193 mg/dL (75-99)
[2020-02-22 19:34] LABS: Anisocytosis Moderate; Basophils # (A) 0.1 k/uL (0-0.2); Basophils % (A) 0 %; Eosinophils # (A) 0.3 k/uL (0-0.7); Eosinophils % (A) 2 %; HCT 23.8 % (39.0-53.0); HGB 8.1 gm/dL (13.0-17.5); Hypochromasia Slight; Lymphocytes # (A) 1.8 k/uL (1.0-4.8); Lymphocytes % (A) 12 %; MCH 38.8 pg (25.0-35.0); Macrocytosis Marked; Mean Platelet Volume 9.5; Monocytes # (A) 0.7 k/uL (0-1.0); Monocytes % (A) 5 %; Neutrophils # (A) 11.6 k/uL (1.3-7.7); Neutrophils % (A) 78 %; RBC 2.08 m/uL (4.30-5.90); WBC 14.8 k/uL (3.8-10.6)
[2020-02-22 19:36] LABS: Platelet Count 75 k/uL (150-450)
[2020-02-22 20:47] LABS: ALT 36 U/L (4-49); AST 139 U/L (17-59); African American GFR (CKD) >90 (>60 ml/min/1.73 sqM); Albumin 2.3 g/dL (3.5-5.0); Alkaline Phosphatase 137 U/L (38-126); Anion Gap 7 mmol/L; Blood Urea Nitrogen 29 mg/dL (9-20); Calcium 7.3 mg/dL (8.4-10.2); Carbon Dioxide 19 mmol/L (22-30); Chloride 108 mmol/L (98-107); Glucose 111 mg/dL (74-99); Non-African American GFR(CKD) >90 (>60 ml/min/1.73 sqM); Potassium 4.2 mmol/L (3.5-5.1); Sodium 134 mmol/L (137-145); Total Protein 6.8 g/dL (6.3-8.2)
[2020-02-22 20:57] LABS: ABG Base Excess -1.1 mmol/L; ABG HCO3 22 mmol/L (21-25); ABG PCO2 29 mmHg (35-45); ABG PH 7.49 (7.35-7.45); ABG PO2 63 mmHg (83-108); ABG TCO2 23 mmol/L (19-24); Allen Test Performed? Yes
[2020-02-22 21:02] LABS: Total Bilirubin 14.9 mg/dL (0.2-1.3)
[2020-02-22] MEDS: CHLORHEXIDINE GLUCONATE 15 ML CUP MUCOUS MEM ONE (21:12)
[2020-02-22] MEDS ORDERED: SODIUM CHLORIDE 0.9% 2,000 ML IV ONE (21:14)
[2020-02-22] MEDS: SODIUM CHLORIDE 0.9% 1,000 ML IV SCH (22:38)
[2020-02-22 23:20] LABS: Anisocytosis Moderate; Basophils % (A) 0 %; Eosinophils # (A) 0.1 k/uL (0-0.7); Eosinophils % (A) 1 %; HCT 21.6 % (39.0-53.0); Hypochromasia Slight; Lymphocytes # (A) 2.1 k/uL (1.0-4.8); Lymphocytes % (A) 15 %; MCH 37.3 pg (25.0-35.0); MCHC 32.6 g/dL (31.0-37.0); MCV 114.4 fL (80.0-100.0); Macrocytosis Marked; Mean Platelet Volume 9.8; Monocytes # (A) 0.7 k/uL (0-1.0); Monocytes % (A) 5 %; Neutrophils # (A) 10.2 k/uL (1.3-7.7); Neutrophils % (A) 76 %; RBC 1.89 m/uL (4.30-5.90); RDW 20.9 % (11.5-15.5); WBC 13.4 k/uL (3.8-10.6)
[2020-02-22 23:22] LABS: Platelet Count 72 k/uL (150-450)
[2020-02-22 23:34] LABS: ALT 34 U/L (4-49); African American GFR (CKD) >90 (>60 ml/min/1.73 sqM); Albumin 2.5 g/dL (3.5-5.0); Anion Gap 8 mmol/L; Blood Urea Nitrogen 26 mg/dL (9-20); Calcium 6.5 mg/dL (8.4-10.2); Carbon Dioxide 20 mmol/L (22-30); Chloride 107 mmol/L (98-107); Glucose 97 mg/dL (74-99); Non-African American GFR(CKD) >90 (>60 ml/min/1.73 sqM); Sodium 135 mmol/L (137-145); Total Bilirubin 14.9 mg/dL (0.2-1.3); Total Protein 6.7 g/dL (6.3-8.2)
[2020-02-22 23:55] LABS: AST 127 U/L (17-59); Alkaline Phosphatase 102 U/L (38-126); Potassium 4.1 mmol/L (3.5-5.1)
[2020-02-23 00:01] LABS: Glucose,Whole Blood 100 mg/dL (75-99)
[2020-02-23] MEDS: PIPERACILLIN-TAZOBACTAM 3.375 GM in SODIUM CHLORIDE 0.9% 100 ML IVPB SCH ×4 (00:39→23:25)
[2020-02-23] MEDS: LACTULOSE 20 GM/30 ML CUP PO SCH ×4 (00:40→20:37)
[2020-02-23] MEDS ORDERED: NOREPINEPHRIN 4 MG-0.9% NS PMX 4 MG/250 ML ML IV ONE (03:08)
[2020-02-23] MEDS: PROPOFOL 1,000 MG in EMPTY BAG 1 BAG IV SCH ×5 (03:30→23:26)
--- NOTE | 2020-02-23 03:44 | XR ---
EXAMINATION TYPE: XR chest 1V portable DATE OF EXAM: 02/23/2020 COMPARISON: Yesterday HISTORY: Tube placement TECHNIQUE: Single view FINDINGS: Endotracheal tube is 3 mm from the rossi. There is moderate pulmonary edema. There is naso gastric tube in the stomach. There are chest leads. IMPRESSION: There is malposition of the endotracheal tube and should BE pulled back 3 cm. There is moderate pulmonary interstitial and airspace edema significantly worse than yesterday.
[2020-02-23] MEDS: NOREPINEPHRINE 4 MG in SODIUM CHLORIDE 0.9% 250 ML IV SCH ×2 (03:52→23:28)
[2020-02-23 04:43] LABS: ABG Base Excess -4.7 mmol/L; ABG HCO3 23 mmol/L (21-25); ABG Oxygen Saturation 92.6 % (94-97); ABG PCO2 52 mmHg (35-45); ABG PH 7.25 (7.35-7.45); ABG PO2 79 mmHg (83-108); ABG TCO2 24 mmol/L (19-24); Allen Test Performed? Yes
--- NOTE | 2020-02-23 04:53 | XR ---
EXAMINATION TYPE: XR chest 1V portable DATE OF EXAM: 02/23/2020 COMPARISON: Today HISTORY: Check tube placement TECHNIQUE: FINDINGS: Endotracheal tube is 3 cm from the rossi in good position. There is moderate pulmonary air space edema. There is nasogastric tube in the stomach. IMPRESSION: Endotracheal tube in good position. Pulmonary edema unchanged.
[2020-02-23] MEDS: MORPHINE SULFATE 2 MG/ML SYRINGE IVP PRN ×3 (05:15→15:53)
[2020-02-23] MEDS: SODIUM CHLORIDE 0.9% 1,000 ML IV SCH ×3 (05:29→20:38)
[2020-02-23 06:35] LABS: Anisocytosis Moderate; Basophils # (A) 0.1 k/uL (0-0.2); Basophils % (A) 0 %; Eosinophils # (A) 0.3 k/uL (0-0.7); Eosinophils % (A) 2 %; HCT 27.2 % (39.0-53.0); Hypochromasia Slight; Lymphocytes # (A) 1.1 k/uL (1.0-4.8); Lymphocytes % (A) 7 %; MCH 36.2 pg (25.0-35.0); MCHC 33.8 g/dL (31.0-37.0); Macrocytosis Marked; Monocytes # (A) 0.4 k/uL (0-1.0); Monocytes % (A) 3 %; Neutrophils % (A) 86 %; RBC 2.55 m/uL (4.30-5.90); RDW 23.8 % (11.5-15.5); WBC 15.2 k/uL (3.8-10.6)
[2020-02-23 06:37] LABS: HGB 9.2 gm/dL (13.0-17.5); Platelet Count 79 k/uL (150-450)
[2020-02-23 06:49] LABS: INR 1.9 (<1.2); Prothrombin Time 18.5 sec (9.0-12.0)
[2020-02-23 07:06] LABS: ALT 47 U/L (4-49); AST 176 U/L (17-59); African American GFR (CKD) >90 (>60 ml/min/1.73 sqM); Albumin 3.1 g/dL (3.5-5.0); Alkaline Phosphatase 129 U/L (38-126); Amylase 70 U/L (30-110); Anion Gap 8 mmol/L; Blood Urea Nitrogen 27 mg/dL (9-20); Calcium 7.1 mg/dL (8.4-10.2); Carbon Dioxide 18 mmol/L (22-30); Chloride 112 mmol/L (98-107); Glucose 99 mg/dL (74-99); Magnesium 1.7 mg/dL (1.6-2.3); Non-African American GFR(CKD) >90 (>60 ml/min/1.73 sqM); Potassium 5.5 mmol/L (3.5-5.1); Sodium 138 mmol/L (137-145); Total Protein 8.1 g/dL (6.3-8.2)
[2020-02-23 07:23] LABS: Total Bilirubin 15.8 mg/dL (0.2-1.3)
[2020-02-23 07:56] LABS: ABG Base Excess -1.5 mmol/L; ABG HCO3 22 mmol/L (21-25); ABG Oxygen Saturation 99.8 % (94-97); ABG PCO2 31 mmHg (35-45); ABG PH 7.46 (7.35-7.45); ABG PO2 170 mmHg (83-108); ABG TCO2 23 mmol/L (19-24); Allen Test Performed? Yes
[2020-02-23] MEDS: OCTREOTIDE 500 MCG in SODIUM CHLORIDE 0.9% 250 ML IV SCH (08:22)
[2020-02-23] MEDS: PANTOPRAZOLE 40 MG/10 ML VIAL IVP SCH ×2 (08:24→20:35)
--- NOTE | 2020-02-23 11:13 | ECHOF ---
Referral Reason:pulm edema MEASUREMENTS -------- HEIGHT: 170.2 cm WEIGHT: 79.8 kg BP: RVIDd: 3.5 cm (< 3.3) IVSd: 1.1 cm (0.6 - 1.1) LVIDd: 3.9 cm (3.9 - 5.3) LVPWd: 1.2 cm (0.6 - 1.1) IVSs: 1.6 cm LVIDs: 1.2 cm LVPWs: 1.4 cm Ao Diam: 3.0 cm (2.0 - 3.7) AV Cusp: 1.8 cm (1.5 - 2.6) LA Diam: 2.7 cm (2.7 - 3.8) MV EXCURSION: 18.395 mm (> 18.000) MV EF SLOPE: 87 mm/s (70 - 150) EPSS: 1.9 cm MV E Tommie: 0.95 m/s MV DecT: 149 ms MV A Tommie: 0.81 m/s MV E/A Ratio: 1.17 RAP: 5.00 mmHg RVSP: 22.40 mmHg FINDINGS -------- Resting tachycardia (HR>100bpm). This was a technically difficult study with suboptimal views. The left ventricular size is normal. There is borderline concentric left ventricular hypertrophy. Overall left ventricular systolic function is normal with, an EF between 60 - 65 %. The right ventricle is mildly enlarged. The left atrial size is normal. The right atrial size is normal. Lumason used The aortic valve is trileaflet and appears structurally normal. The mitral valve is normal. Mild mitral regurgitation is present. The tricuspid valve appears structurally normal. Mild tricuspid regurgitation present. Right vent ricular systolic pressure is normal at < 35 mmHg. There is no pulmonic regurgitation present. The aortic root size is normal. IVC Not well visulized. There is no pericardial effusion. CONCLUSIONS -------- 1. Resting tachycardia (HR>100bpm). 2. This was a technically difficult study with suboptimal views. 3. The left ventricular size is normal. 4. There is borderline concentric left ventricular hypertrophy. 5. Overall left ventricular systolic function is normal with, an EF between 60 - 65 %. 6. The right ventricle is mildly enlarged. 7. The left atrial size is normal. 8. The right atrial size is normal. 9. Lumason used 10. The aortic valve is trileaflet and appears structurally normal. 11. The mitral valve is normal. 12. Mild mitral regurgitation is present. 13. The tricuspid valve appears structurally normal. 14. Mild tricuspid regurgitation present. 15. Right ventricular systolic pressure is normal at < 35 mmHg. 16. There is no pulmonic regurgitation present. 17. The aortic root size is normal. 18. IVC Not well visulized. 19. There is no pericardial effusion. DIVISIONAL HUM[employer] RESOURCES DIRECTOR: Padmini Srinivasan RDCS
[2020-02-23 11:20] LABS: Anisocytosis Moderate; HCT 25.7 % (39.0-53.0); HGB 8.5 gm/dL (13.0-17.5); Hypochromasia Slight; MCH 34.7 pg (25.0-35.0); MCHC 33.2 g/dL (31.0-37.0); MCV 104.6 fL (80.0-100.0); Macrocytosis Marked; Mean Platelet Volume 8.8; Poikilocytosis Slight; RBC 2.46 m/uL (4.30-5.90); RDW 23.9 % (11.5-15.5); WBC 12.5 k/uL (3.8-10.6)
[2020-02-23 11:23] LABS: Platelet Count 64 k/uL (150-450)
[2020-02-23] MEDS: IPRATROPIUM-ALBUTEROL 3 ML NEB INHALATION SCH ×3 (11:32→21:45)
[2020-02-23 11:54] LABS: INR 2.2 (<1.2); Prothrombin Time 21.1 sec (9.0-12.0)
[2020-02-23 12:01] LABS: Glucose,Whole Blood 124 mg/dL (75-99)
[2020-02-23] MEDS ORDERED: PHYTONADIONE 10 MG in SODIUM CHLORIDE 0.9% 50 ML IVPB STA (14:12)
--- NOTE | 2020-02-23 15:37 | P.CNPUL ---
History of Present Illness Consult date: 02/23/20 Requesting physician: Kaiden Solano Reason for consult: hypoxemia, pneumonia Chief complaint: Altered mental status History of present illness: This is a 54-year-old white male, history of alcohol abuse, patient was brought into the ER with change in mental status according to EMS. Patient could not give any history, he was a very poor historian upon arrival to the ER. Patient is supposedly a daily drinker, however from my review of the chart, I saw this patient back on 11/11/19, patient presented back then with multiple posterior lateral rib fractures on the right. Apparently he fell in his bathroom, and landed on the side of the top sustaining multiple rib fractures. Patient susta ined rib fractures of 910 and 11 ribs. Patient is also known to have history of severe emphysema/COPD. He is legally blind. He has history of pericarditis, anxiety, and history of degenerative joint disease. Patient was discharged home on 11/12/19. Drug screen in the ER was positive for tricyclic antidepressants and positive for benzodiazepines. Rest of the drug screen was basically negative. ABG in the ER showed a pO2 of 63 pCO2 of 29 pH of 7.49. Patient was also noted to have elevated INR of 3.7. Low hemoglobin of 7.0 although his baseline hemoglobin from 2 months ago was 15.1. Ammonia level was 91. Total bilirubin was 14.9, and his liver enzymes were a bit elevated. Normal amylase and lipase were noted. Gallbladder ultrasound showed abdominal ascites. Chest x-ray showed bilateral diffuse infiltrates. Patient was presumed septic upon presentation, received fluid boluses of 2500 ML's. Patient was found to have hepatic encephalopathy liver failure, bilateral pneumonia, GI hemorrhage and sepsis. Early this morning, patient was intubated, placed on mechanical ventilation, and he was aware of the patient since admission. Presently the patient is on assist control rate of 28 tidal volume is 500 FiO2 is 100% PEEP of 5. ABG showed a pO2 of 170 pCO2 of 31 pH of 7.46. Hence I cut down the FiO2 to 50%, increased the PEEP to 8, cut down the tidal volume to 450, and decrease the respiratory rate to 26. Patient is on Sandostatin for his GI bleeding, and he is yet to be seen by gastroenterology on consultation is also on Protonix. He is on lactulose for his elevated ammonia level. And he is empirically on Zosyn for presumptive aspiration pneumonia. Echocardiogram showed evidence of good LV function. And mild valvular heart disease. 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 Other Hx: Unsteady gait/falls, ETOH abuse with withdrawal symptoms in the past pt states-tremors, bilateral leg pain/numbness, chronic renal disease stage I, pericarditis, bilateral macular degeneration/legally blind, chronic back pain, RLS, bilateral carpal tunnel syndrome, past infected sebaceous cyst on back History of Any Multi-Drug Resistant Organisms: None Reported Past Surgical History: Orthopedic Surgery Additional Past Surgical History / Comment(s): Right hand surgery d/t injury Past Anesthesia/Blood Transfusion Reactions: No Reported Reaction Past Psychological History: Anxiety, Depression Additional Psychological History / Comment(s): Pt resides with his laura. He has been using her walker on occasion. 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 Smoking Status: Light tobacco smoker Past Alcohol Use History: Abuse, Daily Additional Past Alcohol Use History / Comment(s): Pt started smoking in 1981 and states that he has recently cut down to a pack lasting 4-5 weeks. Pt states he has hx of alcohol abuse-8 beers a day but has not drank in a few weeks. Past Drug Use History: None Reported Additional Drug Use History / Comment(s): Pt smoked marijuana as a teen. - Past Family History Father Family Medical History: Cancer Additional Family Medical History / Comment(s): Father of esophageal cancer. Mother Family Medical History: No Reported History Additional Family Medical History / Comment(s): Mopther is healthy Medications and Allergies Home Medications Medication Instructions Recorded Confirmed Type Cetirizine HCl [Zyrtec] 10 mg PO DAILY 10/01/19 02/22/20 History Omeprazole 20 mg PO DAILY 10/01/19 02/22/20 History Folic Acid 1 mg PO DAILY #30 tablet 10/03/19 02/22/20 Rx Multivitamins, Thera [Multivitamin 1 tab PO DAILY #30 tablet 10/03/19 02/22/20 Rx (formulary)] Thiamine [Vitamin B-1] 100 mg PO DAILY #30 tab 10/03/19 02/22/20 Rx Albuterol Inhaler [Ventolin Hfa 1 - 2 puff INHALATION RT-Q4H PRN 02/22/20 02/22/20 History Inhaler] Allergies Allergy/AdvReac Type Severity Reaction Status Date / Time No Known Allergies Allergy Verified 02/22/20 14:27 Physical Exam Vitals: Vital Signs Temp Pulse Pulse Resp BP BP Pulse Ox 02/23/20 15:00 91 26 H 85/48 99 02/23/20 14:00 96 23 95/56 99 02/23/20 13:00 96 26 H 88/48 99 02/23/20 12:00 98.3 F 98 26 H 93/54 99 02/23/20 11:42 98 02/23/20 11:37 98 02/23/20 11:00 99 26 H 100/54 98 02/23/20 10:00 98 23 93/52 97 02/23/20 09:00 101 H 28 H 97/56 100 02/23/20 08:00 98.5 F 101 H 17 98/57 100 02/23/20 07:00 106 H 28 H 111/62 100 02/23/20 06:45 109 H 28 H 111/65 99 02/23/20 06:30 110 H 29 H 115/55 99 02/23/20 06:25 98.6 F 109 H 28 H 112/50 100 02/23/20 06:19 98.6 F 112 H 28 H 115/55 99 02/23/20 06:15 112 H 28 H 123/58 98 02/23/20 06:00 113 H 27 H 118/61 99 02/23/20 05:45 113 H 28 H 113/64 98 02/23/20 05:30 115 H 28 H 115/60 98 02/23/20 05:15 115 H 27 H 118/61 98 02/23/20 05:00 117 H 25 H 119/61 95 02/23/20 04:45 115 H 23 121/59 97 02/23/20 04:30 116 H 24 112/79 95 02/23/20 04:20 98.6 F 114 H 26 H 121/59 96 02/23/20 04:15 98.7 F 113 H 20 119/61 96 02/23/20 04:07 98.6 F 114 H 26 H 117/66 96 02/23/20 04:05 98.0 F 116 H 28 H 110/57 95 02/23/20 04:00 98.6 F 116 H 27 H 115/59 95 02/23/20 03:30 102 H 18 130/68 95 02/23/20 03:00 120 H 41 H 97/66 92 L 02/23/20 02:55 98.6 F 116 H 24 118/50 92 L 02/23/20 02:53 99.0 F 120 H 20 97/66 90 L 02/23/20 02:30 121 H 37 H 117/93 86 L 02/23/20 02:25 98.8 F 120 H 33 H 117/93 90 L 02/23/20 02:15 98.6 F 120 H 26 H 106/51 90 L 02/23/20 02:00 116 H 29 H 98/71 93 L 02/23/20 01:54 98.6 F 117 H 30 H 125/77 91 L 02/23/20 01:30 116 H 33 H 92/64 91 L 02/23/20 01:00 112 H 30 H 99/62 91 L 02/23/20 00:30 112 H 17 110/60 88 L 02/23/20 00:25 98.7 F 112 H 24 100/65 91 L 02/23/20 00:17 114 H 30 H 102/31 90 L 02/23/20 00:05 98.6 F 114 H 13 102/31 92 L 02/23/20 00:00 98.6 F 113 H 16 79/55 94 L 02/22/20 23:55 98.6 F 114 H 25 H 110/60 91 L 02/22/20 23:45 98.6 F 115 H 29 H 110/70 92 L 02/22/20 23:37 98.8 F 114 H 24 98/68 92 L 02/22/20 23:30 112 H 14 87/62 93 L 02/22/20 23:07 98.6 F 115 H 25 H 92/64 91 L 06/28/20 23:01 98.6 F 112 H 18 79/55 93 L 02/22/20 23:00 116 H 20 128/89 88 L 02/22/20 22:57 98.6 F 112 H 20 83/46 92 L 02/22/20 22:30 110 H 12 109/81 88 L 02/22/20 22:05 98.2 F 116 H 18 128/89 02/22/20 22:00 105 H 25 H 112/58 92 L 02/22/20 21:50 98.5 F 108 H 15 112/58 89 L 02/22/20 21:35 99.0 F 114 H 20 78/44 93 L 02/22/20 21:30 111 H 20 99/71 92 L 02/22/20 21:25 98.9 F 112 H 21 94/76 93 L 02/22/20 21:00 111 H 25 H 102/81 94 L 02/22/20 20:30 110 H 26 H 95/74 90 L 02/22/20 20:29 91 L 02/22/20 20:00 98.9 F 112 H 21 97/63 90 L 02/22/20 19:30 114 H 24 94/58 92 L 02/22/20 19:12 98.7 F 117 H 18 109/26 94 L 02/22/20 19:09 117 H 17 83/38 89 L 02/22/20 18:53 98.9 F 116 H 19 125/67 02/22/20 18:23 98.6 F 113 H 15 97/58 02/22/20 18:13 98.5 F 110 H 17 134/65 02/22/20 18:00 110 H 21 112/67 93 L 02/22/20 17:30 121 H 22 98/50 93 L 02/22/20 17:00 118 H 24 98/50 93 L 02/22/20 16:51 98.9 F 109 H 16 89/45 90 L 02/22/20 16:30 121 H 24 87/48 93 L 02/22/20 16:28 120 H 20 98/51 92 L 02/22/20 16:14 93 L 02/22/20 16:00 98.8 F 104 H 13 85/42 89 L 02/22/20 15:30 118 H 27 H 136/65 87 L Intake and Output 0602/23/20 02/23/20 06:59 14:59 22:59 Intake Total 2869.192 1203.2 112.5 Output Total 315 270 15 Balance 2554.192 933.2 97.5 Intake: IV 650 1048.0 112.5 0.9 650 760 100 Octreotide 500 mcg In 188.0 12.5 Sodium Chloride 0.9% 250 ml @ 25 MCG/HR 12.5 mls/ hr IV .Q20H JARED Rx#: [id number] Piperacillin-Tazobactam 3 100 .375 gm In Sodium Chloride 0.9% 100 ml @ 25 mls/hr IVPB Q8HR JARED Rx# :[id number] Intake, IV Titration 68.192 80.2 0 Amount Norepinephrine 4 mg In 41.157 0 Sodium Chloride 0.9% 250 ml @ 0.05 MCG/KG/MIN 15. 338 mls/hr IV .[id number] JARED Rx#:[id number] Propofol 1,000 mg In 27.035 80.2 Empty Bag 1 bag @ Titrate IV .Q0M JARED Rx#: [id number] Oral 75 Blood Product 2151 Ffp 24 Cpd Unit 299 [id number] Ffp 24 Cpd Unit 334 [id number] Ffp 24 Cpd Unit 288 [id number] Rc Pheresis 2 As3 Unit 310 [id number] Rc Pheresis 2 As3 Unit 310 [id number] Output: Urine 315 270 15 Other: Voiding Method Indwelling Catheter Indwelling Catheter Weight 80.2 kg 80.2 kg Physical Exam: Revealed 54-year-old white male on mechanical ventilation, sedated, on propofol. In no distress. Hemodynamically stable. Head: Atraumatic, normocephalic. HEENT:[PERRLA, EOMI, positive icterus. No neck masses, no JVD, no stridor, endotracheal tube and orogastric tube are intact. Chest: Crackles and rhonchi bilaterally. No wheezes. Symmetrical chest expansion.] Cardiac Exam: [Normal S1 and S2, no S3 gallop, 2/6 systolic murmur thought the precordium.] Abdomen: [Soft, nontender, suspect positive ascites, no rebound, no guarding, positive bowel sounds. Extremities: [No clubbing, trace of bipedal edema, no cyanosis.] Neurological Exam: Cannot be assessed, patient is fully sedated, on mechanical ventilation. Psychiatric: Could not be assessed. Skin: No rashes. Results - Laboratory Findings CBC and BMP: 02/23/20 11:04 02/23/20 06:09 ABG ABG pH 7.46 (7.35-7.45) H 02/23/20 07:54 ABG pCO2 31 mmHg (35-45) L 02/23/20 07:54 ABG pO2 170 mmHg (83-108) H 02/23/20 07:54 ABG O2 Saturation 99.8 % (94-97) H 02/23/20 07:54 PT/INR, D-dimer PT 21.1 sec (9.0-12.0) H 02/23/20 11:04 INR 2.2 (<1.2) H 02/23/20 11:04 Abnormal lab findings: Abnormal Labs 02/22/20 02/22/20 02/22/20 14:10 14:13 14:13 WBC 14.5 H RBC 2.17 L Hgb 8.3 L Hct 24.3 L MCV 111.7 H MCH 38.3 H RDW 20.6 H Plt Count 86 L Neutrophils # Neutrophils # (Manual) 12.33 H Macrocytosis Marked A PT 35.9 H INR 3.7 H APTT 46.0 H ABG pH ABG pCO2 ABG pO2 ABG O2 Saturation Sodium Potassium Chloride Carbon Dioxide BUN Glucose POC Glucose (mg/dL) Plasma Lactic Acid Praveen Calcium Total Bilirubin AST Alkaline Phosphatase Ammonia Albumin Amylase Urine Protein Urine Ketones Urine Bilirubin Ur Leukocyte Esterase Amorphous Sediment Urine Bacteria Urine Mucus U Tricyclic Antidepress U Benzodiazepines Scrn Crossmatch See Detail 02/22/20 02/22/20 02/22/20 14:13 14:13 14:13 WBC RBC Hgb Hct MCV MCH RDW Plt Count Neutrophils # Neutrophils # (Manual) Macrocytosis PT INR APTT ABG pH ABG pCO2 ABG pO2 ABG O2 Saturation Sodium 131 L Potassium Chloride Carbon Dioxide BUN 29 H Glucose 101 H POC Glucose (mg/dL) Plasma Lactic Acid Praveen 2.6 H* Calcium 7.4 L Total Bilirubin 16.1 H* AST 137 H Alkaline Phosphatase 138 H Ammonia 91 H Albumin 2.3 L Amylase <30 L Urine Protein 1+ H Urine Ketones 1+ H Urine Bilirubin 4+ H Ur Leukocyte Esterase Trace H Amorphous Sediment Moderate H Urine Bacteria Occasional H Urine Mucus Few H U Tricyclic Antidepress Detected H U Benzodiazepines Scrn Detected H Crossmatch 02/22/20 02/22/20 02/22/20 16:50 17:24 19:19 WBC 14.8 H RBC 2.08 L Hgb 8.1 L Hct 23.8 L MCV 114.0 H MCH 38.8 H RDW 21.0 H Plt Count 75 L Neutrophils # 11.6 H Neutrophils # (Manual) Macrocytosis Marked A PT INR APTT ABG pH ABG pCO2 ABG pO2 ABG O2 Saturation Sodium Potassium Chloride Carbon Dioxide BUN Glucose POC Glucose (mg/dL) 193 H Plasma Lactic Acid Praveen 3.1 H* Calcium Total Bilirubin AST Alkaline Phosphatase Ammonia Albumin Amylase Urine Protein Urine Ketones Urine Bilirubin Ur Leukocyte Esterase Amorphous Sediment Urine Bacteria Urine Mucus U Tricyclic Antidepress U Benzodiazepines Scrn Crossmatch 02/22/20 02/22/20 02/22/20 19:19 20:03 20:45 WBC RBC Hgb Hct MCV MCH RDW Plt Count Neutrophils # Neutrophils # (Manual) Macrocytosis PT INR APTT ABG pH 7.49 H ABG pCO2 29 L ABG pO2 63 L ABG O2 Saturation 92.0 L Sodium 134 L Potassium Chloride 108 H Carbon Dioxide 19 L BUN 29 H Glucose 111 H POC Glucose (mg/dL) Plasma Lactic Acid Praveen 2.2 H* Calcium 7.3 L Total Bilirubin 14.9 H AST 139 H Alkaline Phosphatase 137 H Ammonia Albumin 2.3 L Amylase Urine Protein Urine Ketones Urine Bilirubin Ur Leukocyte Esterase Amorphous Sediment Urine Bacteria Urine Mucus U Tricyclic Antidepress U Benzodiazepines Scrn Crossmatch 02/22/20 02/22/20 02/22/20 22:50 22:50 22:50 WBC 13.4 H RBC 1.89 L Hgb 7.0 L Hct 21.6 L MCV 114.4 H MCH 37.3 H RDW 20.9 H Plt Count 72 L Neutrophils # 10.2 H Neutrophils # (Manual) Macrocytosis Marked A PT INR APTT ABG pH ABG pCO2 ABG pO2 ABG O2 Saturation Sodium 135 L Potassium Chloride Carbon Dioxide 20 L BUN 26 H Glucose POC Glucose (mg/dL) Plasma Lactic Acid Praveen 2.1 H* Calcium 6.5 L Total Bilirubin 14.9 H AST 127 H Alkaline Phosphatase Ammonia Albumin 2.5 L Amylase Urine Protein Urine Ketones Urine Bilirubin Ur Leukocyte Esterase Amorphous Sediment Urine Bacteria Urine Mucus U Tricyclic Antidepress U Benzodiazepines Scrn Crossmatch 02/23/20 02/23/20 02/23/20 00:00 04:38 06:09 WBC 15.2 H RBC 2.55 L Hgb 9.2 L D Hct 27.2 L MCV 107.0 H D MCH 36.2 H RDW 23.8 H Plt Count 79 L Neutrophils # 13.0 H Neutrophils # (Manual) Macrocytosis Marked A PT INR APTT ABG pH 7.25 L ABG pCO2 52 H ABG pO2 79 L ABG O2 Saturation 92.6 L Sodium Potassium Chloride Carbon Dioxide BUN Glucose POC Glucose (mg/dL) 100 H Plasma Lactic Acid Praveen Calcium Total Bilirubin AST Alkaline Phosphatase Ammonia Albumin Amylase Urine Protein Urine Ketones Urine Bilirubin Ur Leukocyte Esterase Amorphous Sediment Urine Bacteria Urine Mucus U Tricyclic Antidepress U Benzodiazepines Scrn Crossmatch 02/23/20 02/23/20 02/23/20 06:09 06:09 07:54 WBC RBC Hgb Hct MCV MCH RDW Plt Count Neutrophils # Neutrophils # (Manual) Macrocytosis PT 18.5 H INR 1.9 H APTT ABG pH 7.46 H ABG pCO2 31 L ABG pO2 170 H ABG O2 Saturation 99.8 H Sodium Potassium 5.5 H Chloride 112 H Carbon Dioxide 18 L BUN 27 H Glucose POC Glucose (mg/dL) Plasma Lactic Acid Praveen Calcium 7.1 L Total Bilirubin 15.8 H* AST 176 H Alkaline Phosphatase 129 H Ammonia Albumin 3.1 L Amylase Urine Protein Urine Ketones Urine Bilirubin Ur Leukocyte Esterase Amorphous Sediment Urine Bacteria Urine Mucus U Tricyclic Antidepress U Benzodiazepines Scrn Crossmatch 02/23/20 02/23/20 02/23/20 11:04 11:04 11:59 WBC 12.5 H RBC 2.46 L Hgb 8.5 L Hct 25.7 L MCV 104.6 H MCH RDW 23.9 H Plt Count 64 L Neutrophils # Neutrophils # (Manual) Macrocytosis Marked A PT 21.1 H INR 2.2 H APTT ABG pH ABG pCO2 ABG pO2 ABG O2 Saturation Sodium Potassium Chloride Carbon Dioxide BUN Glucose POC Glucose (mg/dL) 124 H Plasma Lactic Acid Praveen Calcium Total Bilirubin AST Alkaline Phosphatase Ammonia Albumin Amylase Urine Protein Urine Ketones Urine Bilirubin Ur Leukocyte Esterase Amorphous Sediment Urine Bacteria Urine Mucus U Tricyclic Antidepress U Benzodiazepines Scrn Crossmatch - Diagnostic Findings Chest x-ray: image reviewed (Bilateral air space disease, suspect aspiration pneumonia. Cannot rule out pulmonary edema) Assessment and Plan Assessment: Impression: Acute hypoxic respiratory failure, suspect aspiration pneumonia. Acute sepsis, likely source is aspiration pneumonia, although abdominal source is not entirely ruled out. Alcohol liver disease with ascites. Jaundice, and elevated liver enzymes. Blood loss anemia, most likely the patient has acute or subacute GI bleeding, hence GI was consulted. Possible esophageal varices and that is yet to be determined. Acute hepatic encephalopathy with significantly elevated ammonia level. Recent history of fall about 2 months ago, and multiple right-sided rib fractures. History of alcoholic and used to neuropathy History of pericarditis Chronic back pain History of restless leg syndrome. Recommendation: Continue ventilatory support. Continue fluid boluses and consider pressors if blood pressure does not improve much with fluids. GI to see on consultation, patient may need EGD Continue octreotide. Empiric antibiotics/Zosyn. Continue to monitor lactic acid, and check blood cultures. Address his coagulopathy and give fresh frozen plasma if needed. Transfused to a hemoglobin of above 7. Patient already received 2 units of packed RBCs since admission and 4 units of fresh frozen plasma. Most recent hemoglobin is 8.5. Patient is extremely ill, we will likely arrange for central line placement and arterial line placement, prognosis is extremely poor and guarded. We'll continue to follow. Critical care time is 55 minutes Time with Patient: Greater than 30
[2020-02-23 16:03] LABS: Anisocytosis Marked; HGB 8.6 gm/dL (13.0-17.5); Hypochromasia Moderate; MCH 34.1 pg (25.0-35.0); MCV 106.7 fL (80.0-100.0); Mean Platelet Volume 8.7; Poikilocytosis Slight; RBC 2.53 m/uL (4.30-5.90); RDW 24.1 % (11.5-15.5); WBC 12.5 k/uL (3.8-10.6)
[2020-02-23 16:06] LABS: Platelet Count 56 k/uL (150-450)
[2020-02-23 16:07] LABS: Macrocytosis Marked
[2020-02-23] MEDS ORDERED: SODIUM CHLORIDE 0.9% 1,000 ML IV ONE (16:22)
[2020-02-23] MEDS ORDERED: CISATRACURIUM 2 MG/ML 5 ML VIAL IV ONE ×2 (16:29→16:40)
[2020-02-23 17:36] LABS: ABG Base Excess -4.6 mmol/L; ABG HCO3 20 mmol/L (21-25); ABG Oxygen Saturation 92.9 % (94-97); ABG PCO2 32 mmHg (35-45); ABG PO2 66 mmHg (83-108); ABG TCO2 21 mmol/L (19-24); Allen Test Performed? Yes
[2020-02-23 17:50] LABS: African American GFR (CKD) >90 (>60 ml/min/1.73 sqM); Anion Gap 5 mmol/L; Blood Urea Nitrogen 25 mg/dL (9-20); Calcium 7.1 mg/dL (8.4-10.2); Carbon Dioxide 20 mmol/L (22-30); Chloride 113 mmol/L (98-107); Glucose 100 mg/dL (74-99); Non-African American GFR(CKD) >90 (>60 ml/min/1.73 sqM); Potassium 3.2 mmol/L (3.5-5.1); Sodium 138 mmol/L (137-145)
--- NOTE | 2020-02-23 18:04 | P.HPIM ---
History of Present Illness H&P Date: 02/23/20 This is a 54-year-old gentleman, history of polysubstance abuse including alcohol abuse , falls with recent rib fractures, legally blind, osteoarthritis and multiple other medical issues presented to the ER with changes in mental status 2 days. Drug screen positive for tricyclics and benzos, serum alcohol less than 10. UA reported dark brown cloudy urine with occasional bacteria, hyaline casts, 2 WBCs, trace leukocytes, 4+ bilirubin, negative for nitrates. Ammonia level 91, T bili 14.9, currently 15.8 , elevated LFTs .Gallbladder ultrasound reporting abdominal ascites, abdominal x-ray nonacute, right foot x- ray reported no fracture, soft tissue swelling, EKG reported sinus tachycardia, troponin normal, BNP 910, echo reported normal LV function, EF 60-65% ,lactic acid 2.1 now down to 1.7, BUN 25, creatinine 0.8 chest x-ray reporting moderate pulmonary interstitial and airspace edema significantly worse than yesterday, pulmonary edema. ABGs noted. INR on admission 3.7, down to 2.2 Sepsis protocol, Received IV fluid resuscitation, IV antibiotics, cultures drawn. Developed respiratory failure, requiring intubation during the night. Currently on Sandostatin drip. 3 maroon stools during the night. Received 4 units of FFP and 2 units of packed RBCs to date. Hemoglobin currently 8.5. And had required pressor support with Levophed off since . Maintained on IV fluid resu scitation. Telemetry sinus rhythm. Potassium 3.2, magnesium 1.7. 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 Other Hx: Unsteady gait/falls, ETOH abuse with withdrawal symptoms in the past pt states-tremors, bilateral leg pain/numbness, chronic renal disease stage I, pericarditis, bilateral macular degeneration/legally blind, chronic back pain, RLS, bilateral carpal tunnel syndrome, past infected sebaceous cyst on back History of Any Multi-Drug Resistant Organisms: None Reported Past Surgical History: Orthopedic Surgery Additional Past Surgical History / Comment(s): Right hand surgery d/t injury Past Anesthesia/Blood Transfusion Reactions: No Reported Reaction Past Psychological History: Anxiety, Depression Additional Psychological History / Comment(s): Pt resides with his laura. He has been using her walker on occasion. 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 Smoking Status: Light tobacco smoker Past Alcohol Use History: Abuse, Daily Additional Past Alcohol Use History / Comment(s): Pt started smoking in 1981 and states that he has recently cut down to a pack lasting 4-5 weeks. Pt states he has hx of alcohol abuse-8 beers a day but has not drank in a few weeks. Past Drug Use History: None Reported Additional Drug Use History / Comment(s): Pt smoked marijuana as a teen. - Past Family History Father Family Medical History: Cancer Additional Family Medical History / Comment(s): Father of esophageal cancer. Mother Family Medical History: No Reported History Additional Family Medical History / Comment(s): Mopther is healthy Medications and Allergies Home Medications Medication Instructions Recorded Confirmed Type Cetirizine HCl [Zyrtec] 10 mg PO DAILY 10/01/19 02/22/20 History Omeprazole 20 mg PO DAILY 10/01/19 02/22/20 History Folic Acid 1 mg PO DAILY #30 tablet 10/03/19 02/22/20 Rx Multivitamins, Thera [Multivitamin 1 tab PO DAILY #30 tablet 10/03/19 02/22/20 Rx (formulary)] Thiamine [Vitamin B-1] 100 mg PO DAILY #30 tab 10/03/19 02/22/20 Rx Albuterol Inhaler [Ventolin Hfa 1 - 2 puff INHALATION RT-Q4H PRN 02/22/20 02/22/20 History Inhaler] Allergies Allergy/AdvReac Type Severity Reaction Status Date / Time No Known Allergies Allergy Verified 02/22/20 14:27 Physical Exam Vitals: Vital Signs Temp Pulse Pulse Resp BP BP Pulse Ox 02/23/20 15:45 88 02/23/20 15:30 84 02/23/20 15:00 91 26 H 85/48 99 02/23/20 14:00 96 23 95/56 99 02/23/20 13:00 96 26 H 88/48 99 06/29/20 12:00 98.3 F 98 26 H 93/54 99 02/23/20 11:42 98 02/23/20 11:37 98 02/23/20 11:00 99 26 H 100/54 98 02/23/20 10:00 98 23 93/52 97 02/23/20 09:00 101 H 28 H 97/56 100 02/23/20 08:00 98.5 F 101 H 17 98/57 100 02/23/20 07:00 106 H 28 H 111/62 100 02/23/20 06:45 109 H 28 H 111/65 99 02/23/20 06:30 110 H 29 H 115/55 99 02/23/20 06:25 98.6 F 109 H 28 H 112/50 100 02/23/20 06:19 98.6 F 112 H 28 H 115/55 99 02/23/20 06:15 112 H 28 H 123/58 98 02/23/20 06:00 113 H 27 H 118/61 99 02/23/20 05:45 113 H 28 H 113/64 98 02/23/20 05:30 115 H 28 H 115/60 98 02/23/20 05:15 115 H 27 H 118/61 98 02/23/20 05:00 117 H 25 H 119/61 95 02/23/20 04:45 115 H 23 121/59 97 02/23/20 04:30 116 H 24 112/79 95 02/23/20 04:20 98.6 F 114 H 26 H 121/59 96 02/23/20 04:15 98.7 F 113 H 20 119/61 96 02/23/20 04:07 98.6 F 114 H 26 H 117/66 96 02/23/20 04:05 98.0 F 116 H 28 H 110/57 95 02/23/20 04:00 98.6 F 116 H 27 H 115/59 95 02/23/20 03:30 102 H 18 130/68 95 02/23/20 03:00 120 H 41 H 97/66 92 L 02/23/20 02:55 98.6 F 116 H 24 118/50 92 L 02/23/20 02:53 99.0 F 120 H 20 97/66 90 L 02/23/20 02:30 121 H 37 H 117/93 86 L 02/23/20 02:25 98.8 F 120 H 33 H 117/93 90 L 02/23/20 02:15 98.6 F 120 H 26 H 106/51 90 L 02/23/20 02:00 116 H 29 H 98/71 93 L 02/23/20 01:54 98.6 F 117 H 30 H 125/77 91 L 02/23/20 01:30 116 H 33 H 92/64 91 L 02/23/20 01:00 112 H 30 H 99/62 91 L 02/23/20 00:30 112 H 17 110/60 88 L 02/23/20 00:25 98.7 F 112 H 24 100/65 91 L 02/23/20 00:17 114 H 30 H 102/31 90 L 02/23/20 00:05 98.6 F 114 H 13 102/31 92 L 02/23/20 00:00 98.6 F 113 H 16 79/55 94 L 02/22/20 23:55 98.6 F 114 H 25 H 110/60 91 L 02/22/20 23:45 98.6 F 115 H 29 H 110/70 92 L 02/22/20 23:37 98.8 F 114 H 24 98/68 92 L 02/22/20 23:30 112 H 14 87/62 93 L 02/22/20 23:07 98.6 F 115 H 25 H 92/64 91 L 02/22/20 23:01 98.6 F 112 H 18 79/55 93 L 02/22/20 23:00 116 H 20 128/89 88 L 02/22/20 22:57 98.6 F 112 H 20 83/46 92 L 02/22/20 22:30 110 H 12 109/81 88 L 02/22/20 22:05 98.2 F 116 H 18 128/89 02/22/20 22:00 105 H 25 H 112/58 92 L 02/22/20 21:50 98.5 F 108 H 15 112/58 89 L 02/22/20 21:35 99.0 F 114 H 20 78/44 93 L 02/22/20 21:30 111 H 20 99/71 92 L 02/22/20 21:25 98.9 F 112 H 21 94/76 93 L 02/22/20 21:00 111 H 25 H 102/81 94 L 02/22/20 20:30 110 H 26 H 95/74 90 L 02/22/20 20:29 91 L 02/22/20 20:00 98.9 F 112 H 21 97/63 90 L 02/22/20 19:30 114 H 24 94/58 92 L 02/22/20 19:12 98.7 F 117 H 18 109/26 94 L 02/22/20 19:09 117 H 17 83/38 89 L 02/22/20 18:53 98.9 F 116 H 19 125/67 02/22/20 18:23 98.6 F 113 H 15 97/58 02/22/20 18:13 98.5 F 110 H 17 134/65 02/22/20 18:00 110 H 21 112/67 93 L Intake and Output 02/23/20 02/23/20 02/23/20 06:59 14:59 22:59 Intake Total 2869.192 1203.2 127.531 Output Total 315 270 15 Balance 2554.192 933.2 112.531 Intake: IV 650 1048.0 112.5 0.9 650 760 100 Octreotide 500 mcg In 188.0 12.5 Sodium Chloride 0.9% 250 ml @ 25 MCG/HR 12.5 mls/ hr IV .Q20H JARED Rx#: [id number] Piperacillin-Tazobactam 3 100 .375 gm In Sodium Chloride 0.9% 100 ml @ 25 mls/hr IVPB Q8HR JARED Rx# :[id number] Intake, IV Titration 68.192 80.2 15.031 Amount Norepinephrine 4 mg In 41.157 15.031 Sodium Chloride 0.9% 250 ml @ 0.05 MCG/KG/MIN 15. 338 mls/hr IV .[id number] JARED Rx#:[id number] Propofol 1,000 mg In 27.035 80.2 Empty Bag 1 bag @ Titrate IV .Q0M JARED Rx#: [id number] Oral 75 Blood Product 2151 Ffp 24 Cpd Unit 299 [id number] Ffp 24 Cpd Unit 334 [id number] Ffp 24 Cpd Unit 288 [id number] Rc Pheresis 2 As3 Unit 310 [id number] Rc Pheresis 2 As3 Unit 310 [id number] Output: Urine 315 270 15 Other: Voiding Method Indwelling Catheter Indwelling Catheter Weight 80.2 kg 80.2 kg VITAL SIGNS: As above GENERAL: Sitting up in bed, intubated, sedated HEENT: Conjunctivae normal. Positive icterus, jaundice NECK: No JVD. No thyroid enlargement. No LNs CARDIOVASCULAR: S1, S2 regular. No murmur RESPIRATION: Coarse Breath sounds diminished in the bases with scattered bilateral rhonchi and crackles ABDOMEN: Soft, distended, positive ascites, positive bowel sounds Extremities: Trace bilateral lower extremity edema, no clubbing, no cyanosis NERVOUS SYSTEM: Unable to assess, sedated and intubated. Skin: Warm and dry, no rash Results CBC & Chem 7: 02/23/20 15:43 02/23/20 06:09 Labs: Abnormal Lab Results - Last 24 Hours (Table) 02/22/20 02/22/20 02/22/20 Range/Units 14:10 17:24 19:19 WBC 14.8 H (3.8-10.6) k/uL RBC 2.08 L (4.30-5.90) m/uL Hgb 8.1 L (13.0-17.5) gm/dL Hct 23.8 L (39.0-53.0) % MCV 114.0 H (80.0-100.0) fL MCH 38.8 H (25.0-35.0) pg RDW 21.0 H (11.5-15.5) % Plt Count 75 L (150-450) k/uL Neutrophils # 11.6 H (1.3-7.7) k/uL Macrocytosis Marked A PT (9.0-12.0) sec INR (<1.2) ABG pH (7.35-7.45) ABG pCO2 (35-45) mmHg ABG pO2 (83-108) mmHg ABG O2 Saturation (94-97) % Sodium (137-145) mmol/L Potassium (3.5-5.1) mmol/L Chloride (98-107) mmol/L Carbon Dioxide (22-30) mmol/L BUN (9-20) mg/dL Glucose (74-99) mg/dL POC Glucose (mg/dL) (75-99) mg/dL Plasma Lactic Acid Praveen 3.1 H* (0.7-2.0) mmol/L Calcium (8.4-10.2) mg/dL Total Bilirubin (0.2-1.3) mg/dL AST (17-59) U/L Alkaline Phosphatase (38-126) U/L Albumin (3.5-5.0) g/dL Crossmatch See Detail 02/22/20 02/22/20 02/22/20 Range/Units 19:19 20:03 20:45 WBC (3.8-10.6) k/uL RBC (4.30-5.90) m/uL Hgb (13.0-17.5) gm/dL Hct (39.0-53.0) % MCV (80.0-100.0) fL MCH (25.0-35.0) pg RDW (11.5-15.5) % Plt Count (150-450) k/uL Neutrophils # (1.3-7.7) k/uL Macrocytosis PT (9.0-12.0) sec INR (<1.2) ABG pH 7.49 H (7.35-7.45) ABG pCO2 29 L (35-45) mmHg ABG pO2 63 L (83-108) mmHg ABG O2 Saturation 92.0 L (94-97) % Sodium 134 L (137-145) mmol/L Potassium (3.5-5.1) mmol/L Chloride 108 H (98-107) mmol/L Carbon Dioxide 19 L (22-30) mmol/L BUN 29 H (9-20) mg/dL Glucose 111 H (74-99) mg/dL POC Glucose (mg/dL) (75-99) mg/dL Plasma Lactic Acid Praveen 2.2 H* (0.7-2.0) mmol/L Calcium 7.3 L (8.4-10.2) mg/dL Total Bilirubin 14.9 H (0.2-1.3) mg/dL AST 139 H (17-59) U/L Alkaline Phosphatase 137 H (38-126) U/L Albumin 2.3 L (3.5-5.0) g/dL Crossmatch 02/22/20 02/22/20 02/22/20 Range/Units 22:50 22:50 22:50 WBC 13.4 H (3.8-10.6) k/uL RBC 1.89 L (4.30-5.90) m/uL Hgb 7.0 L (13.0-17.5) gm/dL Hct 21.6 L (39.0-53.0) % MCV 114.4 H (80.0-100.0) fL MCH 37.3 H (25.0-35.0) pg RDW 20.9 H (11.5-15.5) % Plt Count 72 L (150-450) k/uL Neutrophils # 10.2 H (1.3-7.7) k/uL Macrocytosis Marked A PT (9.0-12.0) sec INR (<1.2) ABG pH (7.35-7.45) ABG pCO2 (35-45) mmHg ABG pO2 (83-108) mmHg ABG O2 Saturation (94-97) % Sodium 135 L (137-145) mmol/L Potassium (3.5-5.1) mmol/L Chloride (98-107) mmol/L Carbon Dioxide 20 L (22-30) mmol/L BUN 26 H (9-20) mg/dL Glucose (74-99) mg/dL POC Glucose (mg/dL) (75-99) mg/dL Plasma Lactic Acid Praveen 2.1 H* (0.7-2.0) mmol/L Calcium 6.5 L (8.4-10.2) mg/dL Total Bilirubin 14.9 H (0.2-1.3) mg/dL AST 127 H (17-59) U/L Alkaline Phosphatase (38-126) U/L Albumin 2.5 L (3.5-5.0) g/dL Crossmatch 02/23/20 02/23/20 02/23/20 Range/Units 00:00 04:38 06:09 WBC 15.2 H (3.8-10.6) k/uL RBC 2.55 L (4.30-5.90) m/uL Hgb 9.2 L D (13.0-17.5) gm/dL Hct 27.2 L (39.0-53.0) % MCV 107.0 H D (80.0-100.0) fL MCH 36.2 H (25.0-35.0) pg RDW 23.8 H (11.5-15.5) % Plt Count 79 L (150-450) k/uL Neutrophils # 13.0 H (1.3-7.7) k/uL Macrocytosis Marked A PT (9.0-12.0) sec INR (<1.2) ABG pH 7.25 L (7.35-7.45) ABG pCO2 52 H (35-45) mmHg ABG pO2 79 L (83-108) mmHg ABG O2 Saturation 92.6 L (94-97) % Sodium (137-145) mmol/L Potassium (3.5-5.1) mmol/L Chloride (98-107) mmol/L Carbon Dioxide (22-30) mmol/L BUN (9-20) mg/dL Glucose (74-99) mg/dL POC Glucose (mg/dL) 100 H (75-99) mg/dL Plasma Lactic Acid Praveen (0.7-2.0) mmol/L Calcium (8.4-10.2) mg/dL Total Bilirubin (0.2-1.3) mg/dL AST (17-59) U/L Alkaline Phosphatase (38-126) U/L Albumin (3.5-5.0) g/dL Crossmatch 02/23/20 02/23/20 02/23/20 Range/Units 06:09 06:09 07:54 WBC (3.8-10.6) k/uL RBC (4.30-5.90) m/uL Hgb (13.0-17.5) gm/dL Hct (39.0-53.0) % MCV (80.0-100.0) fL MCH (25.0-35.0) pg RDW (11.5-15.5) % Plt Count (150-450) k/uL Neutrophils # (1.3-7.7) k/uL Macrocytosis PT 18.5 H (9.0-12.0) sec INR 1.9 H (<1.2) ABG pH 7.46 H (7.35-7.45) ABG pCO2 31 L (35-45) mmHg ABG pO2 170 H (83-108) mmHg ABG O2 Saturation 99.8 H (94-97) % Sodium (137-145) mmol/L Potassium 5.5 H (3.5-5.1) mmol/L Chloride 112 H (98-107) mmol/L Carbon Dioxide 18 L (22-30) mmol/L BUN 27 H (9-20) mg/dL Glucose (74-99) mg/dL POC Glucose (mg/dL) (75-99) mg/dL Plasma Lactic Acid Praveen (0.7-2.0) mmol/L Calcium 7.1 L (8.4-10.2) mg/dL Total Bilirubin 15.8 H* (0.2-1.3) mg/dL AST 176 H (17-59) U/L Alkaline Phosphatase 129 H (38-126) U/L Albumin 3.1 L (3.5-5.0) g/dL Crossmatch 02/23/20 02/23/20 02/23/20 Range/Units 11:04 11:04 11:59 WBC 12.5 H (3.8-10.6) k/uL RBC 2.46 L (4.30-5.90) m/uL Hgb 8.5 L (13.0-17.5) gm/dL Hct 25.7 L (39.0-53.0) % MCV 104.6 H (80.0-100.0) fL MCH (25.0-35.0) pg RDW 23.9 H (11.5-15.5) % Plt Count 64 L (150-450) k/uL Neutrophils # (1.3-7.7) k/uL Macrocytosis Marked A PT 21.1 H (9.0-12.0) sec INR 2.2 H (<1.2) ABG pH (7.35-7.45) ABG pCO2 (35-45) mmHg ABG pO2 (83-108) mmHg ABG O2 Saturation (94-97) % Sodium (137-145) mmol/L Potassium (3.5-5.1) mmol/L Chloride (98-107) mmol/L Carbon Dioxide (22-30) mmol/L BUN (9-20) mg/dL Glucose (74-99) mg/dL POC Glucose (mg/dL) 124 H (75-99) mg/dL Plasma Lactic Acid Praveen (0.7-2.0) mmol/L Calcium (8.4-10.2) mg/dL Total Bilirubin (0.2-1.3) mg/dL AST (17-59) U/L Alkaline Phosphatase (38-126) U/L Albumin (3.5-5.0) g/dL Crossmatch 02/23/20 Range/Units 15:43 WBC 12.5 H (3.8-10.6) k/uL RBC 2.53 L (4.30-5.90) m/uL Hgb 8.6 L (13.0-17.5) gm/dL Hct 27.0 L (39.0-53.0) % MCV 106.7 H (80.0-100.0) fL MCH (25.0-35.0) pg RDW 24.1 H (11.5-15.5) % Plt Count 56 L (150-450) k/uL Neutrophils # (1.3-7.7) k/uL Macrocytosis Marked A PT (9.0-12.0) sec INR (<1.2) ABG pH (7.35-7.45) ABG pCO2 (35-45) mmHg ABG pO2 (83-108) mmHg ABG O2 Saturation (94-97) % Sodium (137-145) mmol/L Potassium (3.5-5.1) mmol/L Chloride (98-107) mmol/L Carbon Dioxide (22-30) mmol/L BUN (9-20) mg/dL Glucose (74-99) mg/dL POC Glucose (mg/dL) (75-99) mg/dL Plasma Lactic Acid Praveen (0.7-2.0) mmol/L Calcium (8.4-10.2) mg/dL Total Bilirubin (0.2-1.3) mg/dL AST (17-59) U/L Alkaline Phosphatase (38-126) U/L Albumin (3.5-5.0) g/dL Crossmatch Microbiology - Last 24 Hours (Table) 02/22/20 14:13 Blood Culture - Preliminary Blood No Growth after 24 hours 02/23/20 03:46 Gram Stain - Preliminary Sputum Sputum Culture - Preliminary Thrombosis Risk Factor Assmnt - Choose All That Apply Any of the Below Risk Factors Present?: Yes Each Factor Represents 1 point: Age 41-60 years, Swollen legs (current) Other Risk Factors: No Thrombosis Risk Factor Assessment Total Risk Factor Score: 2 Thrombosis Risk Factor Assessment Level: Low Risk Assessment and Plan Assessment: Sepsis secondary to aspiration bilateral pneumonia, possibly abdominal source, Acute hypoxic respiratory failure, suspect related to aspiration pneumonia, ventilator dependent Hypotension, status post pressor support secondary to sepsis Acute GI bleed, possible esophageal varices in a patient with significant alcohol dependence, on Sandostatin Acute blood loss anemia, status post multiple transfusions of both FFP, packed RBCs Acute Hepatic encephalopathy Alcoholic liver disease with ascites Recent posterior lateral rib fractures of 9, 10 and 11 status post fall History of pericarditis Chronic back pain Polysubstance abuse, per record review; patient reports alcohol, marijuana use currently. History of nicotine dependence COPD, emphysema Legally blind Obesity, BMI 30.7 Osteoarthritis Venous insufficiency Anxiety, depression, history of, currently controlled Plan: Continue on current medication regime ,monitoring and symptomatic treatment. Lactulose 3 times a day scheduled. Maintain fluid boluses, pressor support recently removed this morning. Sandostatin drip .empiric antibiotics Levaquin, Zosyn Follow closely with pulmonary, GI. Close monitoring of coags.. Prognosis guarded given multiple complex medical issues. The impression and plan of care has been dictated as directed. : I performed a history and examination of this patient, discussed the same with the dictator. I agree with the dictator's note ,documented as a scribe. Any additional findings or plans will be noted.
[2020-02-23] MEDS ORDERED: FUROSEMIDE 10 MG/ML 4 ML VIAL IV STA (18:17)
[2020-02-23] MEDS ORDERED: LEVOFLOXACIN 750MG-D5W PMX 750 MG in DEXTROSE/WATER 1 150ML.BAG IVPB SCH (19:00)
[2020-02-23] MEDS ORDERED: Potassium Replacement Protocol 1 EACH MISC MISCELLANE PRN (20:02)
[2020-02-23] MEDS: POTASSIUM CHLORIDE 20 MEQ in WATER FOR INJECTION 1 100ML.BAG IVPB SCH ×2 (20:36→23:27)
--- NOTE | 2020-02-23 22:48 | OP ---
OPERATIVE REPORT OPERATIVE REPORT: Placement of a right femoral triple-lumen catheter. PREOPERATIVE DIAGNOSIS: Hypotension, sepsis. Patient needs to be on norepinephrine for low blood pressure. POSTOPERATIVE DIAGNOSIS: Hypotension, sepsis. Patient needs to be on norepinephrine for low blood pressure. ANESTHESIA USED: 2 mL of 1% lidocaine. PROCEDURE DESCRIPTION: The patient was placed in supine position. The area of the right groin was prepared in a sterile fashion and drapes were applied. The area was locally anesthetized with lidocaine. Then the right femoral vein was easily cannulated and a guidewire was placed. The area around the guidewire was dilated using a dilator. Then a triple- lumen catheter was inserted over the guidewire, and the guidewire was removed. Good blood flow was noted in the 3 different ports of the triple-lumen catheter. Line was secured using 3.0 silk sutures. No evidence of any immediate complication. MMODL / IJN: [id number] /
--- NOTE | 2020-02-23 22:54 | OP ---
OPERATIVE REPORT OPERATIVE REPORT: Placement of right radial arterial line. PREOPERATIVE DIAGNOSIS: Sepsis and hypotension. POSTOPERATIVE DIAGNOSIS: Sepsis and hypotension. ANESTHESIA USED: None deployed. PROCEDURE DESCRIPTION: The right wrist was prepared in a sterile fashion. Drapes were applied. The right radial artery was palpated, cannulated easily and a guidewire was placed. A Cook's catheter was inserted over the guidewire, and the guidewire was removed. Good blood flow and good waveform were noted; no evidence of any immediate complications. The line was secured using 3.0 silk sutures. MMODL / IJN: [id number] /
[2020-02-23] MEDS ORDERED: CHLORHEXIDINE GLUCONATE 15 ML CUP MUCOUS MEM ONE (23:21)
[2020-02-23] MEDS: CHLORHEXIDINE GLUCONATE 15 ML CUP MUCOUS MEM ONE (23:26)
[2020-02-24 00:06] LABS: Glucose,Whole Blood 203 mg/dL (75-99)
[2020-02-24] MEDS: MORPHINE SULFATE 2 MG/ML SYRINGE IVP PRN ×3 (00:26→07:01)
[2020-02-24] MEDS ORDERED: CISATRACURIUM 2 MG/ML 5 ML VIAL IV ONE (00:55)
[2020-02-24] MEDS ORDERED: CISATRACURIUM 200 MG in SODIUM CHLORIDE 0.9% 180 ML IV SCH (01:00)
[2020-02-24] MEDS: PROPOFOL 1,000 MG in EMPTY BAG 1 BAG IV SCH ×5 (01:46→20:23)
[2020-02-24] MEDS: ARTIFICIAL TEARS OINTMENT 3.5 GM TUBE BOTH EYES SCH ×5 (04:02→20:23)
[2020-02-24] MEDS: OCTREOTIDE 500 MCG in SODIUM CHLORIDE 0.9% 250 ML IV SCH (04:04)
[2020-02-24] MEDS: NOREPINEPHRINE 4 MG in SODIUM CHLORIDE 0.9% 250 ML IV SCH ×2 (04:06→17:02)
[2020-02-24 05:26] LABS: Anisocytosis Marked; Basophils # (A) 0.1 k/uL (0-0.2); Basophils % (A) 1 %; Eosinophils # (A) 0.2 k/uL (0-0.7); Eosinophils % (A) 1 %; HGB 8.6 gm/dL (13.0-17.5); Hypochromasia Slight; Lymphocytes # (A) 1.5 k/uL (1.0-4.8); Lymphocytes % (A) 10 %; MCHC 33.2 g/dL (31.0-37.0); MCV 105.5 fL (80.0-100.0); Mean Platelet Volume 9.3; Monocytes # (A) 0.6 k/uL (0-1.0); Monocytes % (A) 4 %; Neutrophils % (A) 82 %; Poikilocytosis Slight; RBC 2.46 m/uL (4.30-5.90); RDW 24.2 % (11.5-15.5); WBC 14.7 k/uL (3.8-10.6)
[2020-02-24 05:48] LABS: ALT 36 U/L (4-49); AST 132 U/L (17-59); African American GFR (CKD) >90 (>60 ml/min/1.73 sqM); Albumin 2.3 g/dL (3.5-5.0); Alkaline Phosphatase 118 U/L (38-126); Anion Gap 7 mmol/L; Blood Urea Nitrogen 25 mg/dL (9-20); Calcium 7.2 mg/dL (8.4-10.2); Carbon Dioxide 19 mmol/L (22-30); Chloride 113 mmol/L (98-107); Glucose 130 mg/dL (74-99); Non-African American GFR(CKD) >90 (>60 ml/min/1.73 sqM); Potassium 3.3 mmol/L (3.5-5.1); Sodium 139 mmol/L (137-145); Total Bilirubin 11.3 mg/dL (0.2-1.3); Total Protein 6.6 g/dL (6.3-8.2)
[2020-02-24 05:59] LABS: Macrocytosis Marked
[2020-02-24 06:00] LABS: Platelet Count 66 k/uL (150-450)
[2020-02-24] MEDS: ARTIFICIAL TEARS-HYPROMELLOSE DROPS 15 ML BTL BOTH EYES SCH ×5 (06:08→20:23)
[2020-02-24] MEDS: SODIUM CHLORIDE 0.9% 1,000 ML IV SCH ×2 (06:10→12:39)
[2020-02-24] MEDS: POTASSIUM CHLORIDE 20 MEQ in WATER FOR INJECTION 1 100ML.BAG IVPB SCH ×2 (06:14→09:20)
[2020-02-24 06:21] LABS: INR 2.1 (<1.2); Prothrombin Time 20.8 sec (9.0-12.0)
[2020-02-24 07:01] LABS: ABG Base Excess -5.3 mmol/L; ABG HCO3 21 mmol/L (21-25); ABG PCO2 39 mmHg (35-45); ABG PH 7.33 (7.35-7.45); ABG PO2 67 mmHg (83-108); ABG TCO2 22 mmol/L (19-24)
[2020-02-24 07:02] LABS: Allen Test Performed? no
--- NOTE | 2020-02-24 07:13 | XR ---
EXAMINATION TYPE: XR chest 1V portable DATE OF EXAM: 02/24/2020 COMPARISON: 02/23/2020 HISTORY: SOB, Follow Up FINDINGS: Indwelling tubes and catheters are unchanged. Bilateral scattered airspace infiltrates persist without significant change. Stable appearance of the cardio-mediastinal structures at this time. Pleural effusion unchanged. IMPRESSION: 1. Stable portable chest. Clinical correlation and follow up until resolution is recommended.
--- NOTE | 2020-02-24 07:17 | P.CONS ---
History of Present Illness - Reason for Consult Consult date: 02/23/20 Alcohol hepatitis, cirrhosis Requesting physician: Kaiden Solano - Chief Complaint Altered mental status - History of Present Illness 54-year-old male with a medical history significant for osteoarthritis, alcohol abuse who presented to the hospital due to complaints over altered mental status. Of note the patient is currently intubated and sedated in the ICU and history is been taken on review of the electronic medical record and in conversation with the patient's fiance. Per the patient's fiance the patient has a long-standing history of alcohol abuse with approximately 6-7 beers daily which has been going on for years. He recently the patient has started drinking liquor as well to. The patient had a worsening altered mental status prior to presentation and was brought to the hospital for further evaluation. On presentation ultrasound of the abdomen was significant for abdominal ascites with no evidence of cholelithiasis. Laboratory evaluation significant for an ammonia of 91 with a WBC 15.2, hemoglobin 8.5, platelet count 64,000 with an INR of 3.7 improved at 2.2 on repeat draw with a total bilirubin 15.8, alkaline phosphatase 129, AST 176 and ALTs 47. Currently the patient is in the ICU being treated for suspected aspiration pneumonia and sepsis. 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 Other Hx: Unsteady gait/falls, ETOH abuse with withdrawal symptoms in the past pt states-tremors, bilateral leg pain/numbness, chronic renal disease stage I, pericarditis, bilateral macular degeneration/legally blind, chronic back pain, RLS, bilateral carpal tunnel syndrome, past infected sebaceous cyst on back History of Any Multi-Drug Resistant Organisms: None Reported Past Surgical History: Orthopedic Surgery Additional Past Surgical History / Comment(s): Right hand surgery d/t injury Past Anesthesia/Blood Transfusion Reactions: No Reported Reaction Past Psychological History: Anxiety, Depression Additional Psychological History / Comment(s): Pt resides with his fiancee. He has been using her walker on occasion. 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 Smoking Status: Light tobacco smoker Past Alcohol Use History: Abuse, Daily Additional Past Alcohol Use History / Comment(s): Pt started smoking in 1981 and states that he has recently cut down to a pack lasting 4-5 weeks. Pt states he has hx of alcohol abuse-8 beers a day but has not drank in a few weeks. Past Drug Use History: None Reported Additional Drug Use History / Comment(s): Pt smoked marijuana as a teen. - Past Family History Father Family Medical History: Cancer Additional Family Medical History / Comment(s): Father of esophageal cancer. Mother Family Medical History: No Reported History Additional Family Medical History / Comment(s): Mopther is healthy Medications and Allergies Home Medications Medication Instructions Recorded Confirmed Type Cetirizine HCl [Zyrtec] 10 mg PO DAILY 10/01/19 02/22/20 History Omeprazole 20 mg PO DAILY 10/01/19 02/22/20 History Folic Acid 1 mg PO DAILY #30 tablet 10/03/19 02/22/20 Rx Multivitamins, Thera [Multivitamin 1 tab PO DAILY #30 tablet 10/03/19 02/22/20 Rx (formulary)] Thiamine [Vitamin B-1] 100 mg PO DAILY #30 tab 10/03/19 02/22/20 Rx Albuterol Inhaler [Ventolin Hfa 1 - 2 puff INHALATION RT-Q4H PRN 02/22/20 02/22/20 History Inhaler] Allergies Allergy/AdvReac Type Severity Reaction Status Date / Time No Known Allergies Allergy Verified 02/22/20 14:27 Physical Exam Vitals: Vital Signs Temp Pulse Pulse Resp BP BP Pulse Ox 02/23/20 12:00 98.3 F 98 26 H 93/54 99 02/23/20 11:42 98 02/23/20 11:37 98 02/23/20 11:00 99 26 H 100/54 98 02/23/20 10:00 98 23 93/52 97 02/23/20 09:00 101 H 28 H 97/56 100 02/23/20 08:00 98.5 F 101 H 17 98/57 100 06/29/20 07:00 106 H 28 H 111/62 100 02/23/20 06:45 109 H 28 H 111/65 99 02/23/20 06:30 110 H 29 H 115/55 99 02/23/20 06:25 98.6 F 109 H 28 H 112/50 100 02/23/20 06:19 98.6 F 112 H 28 H 115/55 99 02/23/20 06:15 112 H 28 H 123/58 98 02/23/20 06:00 113 H 27 H 118/61 99 02/23/20 05:45 113 H 28 H 113/64 98 02/23/20 05:30 115 H 28 H 115/60 98 02/23/20 05:15 115 H 27 H 118/61 98 02/23/20 05:00 117 H 25 H 119/61 95 02/23/20 04:45 115 H 23 121/59 97 02/23/20 04:30 116 H 24 112/79 95 02/23/20 04:20 98.6 F 114 H 26 H 121/59 96 02/23/20 04:15 98.7 F 113 H 20 119/61 96 02/23/20 04:07 98.6 F 114 H 26 H 117/66 96 02/23/20 04:05 98.0 F 116 H 28 H 110/57 95 02/23/20 04:00 98.6 F 116 H 27 H 115/59 95 02/23/20 03:30 102 H 18 130/68 95 02/23/20 03:00 120 H 41 H 97/66 92 L 02/23/20 02:55 98.6 F 116 H 24 118/50 92 L 02/23/20 02:53 99.0 F 120 H 20 97/66 90 L 02/23/20 02:30 121 H 37 H 117/93 86 L 02/23/20 02:25 98.8 F 120 H 33 H 117/93 90 L 02/23/20 02:15 98.6 F 120 H 26 H 106/51 90 L 02/23/20 02:00 116 H 29 H 98/71 93 L 02/23/20 01:54 98.6 F 117 H 30 H 125/77 91 L 02/23/20 01:30 116 H 33 H 92/64 91 L 02/23/20 01:00 112 H 30 H 99/62 91 L 02/23/20 00:30 112 H 17 110/60 88 L 02/23/20 00:25 98.7 F 112 H 24 100/65 91 L 02/23/20 00:17 114 H 30 H 102/31 90 L 02/23/20 00:05 98.6 F 114 H 13 102/31 92 L 02/23/20 00:00 98.6 F 113 H 16 79/55 94 L 02/22/20 23:55 98.6 F 114 H 25 H 110/60 91 L 02/22/20 23:45 98.6 F 115 H 29 H 110/70 92 L 02/22/20 23:37 98.8 F 114 H 24 98/68 92 L 02/22/20 23:30 112 H 14 87/62 93 L 02/22/20 23:07 98.6 F 115 H 25 H 92/64 91 L 02/22/20 23:01 98.6 F 112 H 18 79/55 93 L 02/22/20 23:00 116 H 20 128/89 88 L 02/22/20 22:57 98.6 F 112 H 20 83/46 92 L 02/22/20 22:30 110 H 12 109/81 88 L 02/22/20 22:05 98.2 F 116 H 18 128/89 02/22/20 22:00 105 H 25 H 112/58 92 L 02/22/20 21:50 98.5 F 108 H 15 112/58 89 L 02/22/20 21:35 99.0 F 114 H 20 78/44 93 L 02/22/20 21:30 111 H 20 99/71 92 L 02/22/20 21:25 98.9 F 112 H 21 94/76 93 L 02/22/20 21:00 111 H 25 H 102/81 94 L 02/22/20 20:30 110 H 26 H 95/74 90 L 02/22/20 20:29 91 L 02/22/20 20:00 98.9 F 112 H 21 97/63 90 L 02/22/20 19:30 114 H 24 94/58 92 L 02/22/20 19:12 98.7 F 117 H 18 109/26 94 L 02/22/20 19:09 117 H 17 83/38 89 L 02/22/20 18:53 98.9 F 116 H 19 125/67 02/22/20 18:23 98.6 F 113 H 15 97/58 02/22/20 18:13 98.5 F 110 H 17 134/65 02/22/20 18:00 110 H 21 112/67 93 L 02/22/20 17:30 121 H 22 98/50 93 L 02/22/20 17:00 118 H 24 98/50 93 L 02/22/20 16:51 98.9 F 109 H 16 89/45 90 L 02/22/20 16:30 121 H 24 87/48 93 L 02/22/20 16:28 120 H 20 98/51 92 L 02/22/20 16:14 93 L 02/22/20 16:00 98.8 F 104 H 13 85/42 89 L 02/22/20 15:30 118 H 27 H 136/65 87 L 02/22/20 15:06 116 H 25 H 128/64 92 L 02/22/20 14:38 116 H 22 108/59 99 02/22/20 13:54 99.4 F 116 H 26 H 102/63 89 L Intake and Output 02/22/20 02/23/20 02/23/20 22:59 06:59 14:59 Intake Total 5980 2869.192 978.2 Output Total 130 315 220 Balance 5850 2554.192 758.2 Intake: IV 3090 650 823.0 0.9 3090 650 560 Octreotide 500 mcg In 163.0 Sodium Chloride 0.9% 250 ml @ 25 MCG/HR 12.5 mls/ hr IV .Q20H JARED Rx#: [id number] Piperacillin-Tazobactam 3 100 .375 gm In Sodium Chloride 0.9% 100 ml @ 25 mls/hr IVPB Q8HR JARED Rx# :[id number] Intake, IV Titration 1999 68.192 80.2 Amount Norepinephrine 4 mg In 41.157 Sodium Chloride 0.9% 250 ml @ 0.05 MCG/KG/MIN 15. 338 mls/hr IV .[id number] JARED Rx#:[id number] Propofol 1,000 mg In 27.035 80.2 Empty Bag 1 bag @ Titrate IV .Q0M JARED Rx#: [id number] Sodium Chloride 0.9% 2, 1999 000 ml @ 999 mls/hr IV . Q2H1M ONE Rx#:[id number] Oral 75 Blood Product 890 2151 Ffp 24 Cpd Unit 299 [id number] Ffp 24 Cpd Unit 334 [id number] Ffp 24 Cpd Unit 0 288 [id number] Ffp 24 Cpd Unit 290 [id number] Rc Pheresis 2 As3 Unit 0 310 [id number] Rc Pheresis 2 As3 Unit 310 [id number] Output: Urine 130 315 220 Other: Voiding Method Indwelling Catheter Indwelling Catheter Indwelling Catheter Weight 80.513 kg 80.2 kg 80.2 kg On physical examination, patient appears comfortable in no apparent distress. HEAD: Normocephalic, atraumatic. EYES: Scleral icterus. No conjunctival injection. MOUTH: No lesions, tongue midline, endotracheal tube in place. NECK: Trachea midline, no gross abnormalities. CHEST: Coarse respiratory noises in all lung soni. HEART: Regular rate and rhythm. ABDOMEN: Soft, mildly distended. Bowel sounds are positive. No organomegaly. No guarding or rigidity. EXTREMITIES: Bilateral pedal edema. SKIN: No rashes, no jaundice. NEUROLOGIC: Intubated and sedated. Results CBC & Chem 7: 02/24/20 05:05 02/24/20 05:05 Labs: Abnormal Lab Results - Last 24 Hours (Table) 02/22/20 02/22/20 02/22/20 Range/Units 14:10 14:13 14:13 WBC 14.5 H (3.8-10.6) k/uL RBC 2.17 L (4.30-5.90) m/uL Hgb 8.3 L (13.0-17.5) gm/dL Hct 24.3 L (39.0-53.0) % MCV 111.7 H (80.0-100.0) fL MCH 38.3 H (25.0-35.0) pg RDW 20.6 H (11.5-15.5) % Plt Count 86 L (150-450) k/uL Neutrophils # (1.3-7.7) k/uL Neutrophils # (Manual) 12.33 H (1.3-7.7) k/uL Macrocytosis Marked A PT 35.9 H (9.0-12.0) sec INR 3.7 H (<1.2) APTT 46.0 H (22.0-30.0) sec ABG pH (7.35-7.45) ABG pCO2 (35-45) mmHg ABG pO2 (83-108) mmHg ABG O2 Saturation (94-97) % Sodium (137-145) mmol/L Potassium (3.5-5.1) mmol/L Chloride (98-107) mmol/L Carbon Dioxide (22-30) mmol/L BUN (9-20) mg/dL Glucose (74-99) mg/dL POC Glucose (mg/dL) (75-99) mg/dL Plasma Lactic Acid Praveen (0.7-2.0) mmol/L Calcium (8.4-10.2) mg/dL Total Bilirubin (0.2-1.3) mg/dL AST (17-59) U/L Alkaline Phosphatase (38-126) U/L Ammonia (<30) umol/L Albumin (3.5-5.0) g/dL Amylase (30-110) U/L Urine Protein (Negative) Urine Ketones (Negative) Urine Bilirubin (Negative) Ur Leukocyte Esterase (Negative) Amorphous Sediment (None) /hpf Urine Bacteria (None) /hpf Urine Mucus (None) /hpf U Tricyclic Antidepress (NotDetected) U Benzodiazepines Scrn (NotDetected) Crossmatch See Detail 02/22/20 02/22/20 02/22/20 Range/Units 14:13 14:13 14:13 WBC (3.8-10.6) k/uL RBC (4.30-5.90) m/uL Hgb (13.0-17.5) gm/dL Hct (39.0-53.0) % MCV (80.0-100.0) fL MCH (25.0-35.0) pg RDW (11.5-15.5) % Plt Count (150-450) k/uL Neutrophils # (1.3-7.7) k/uL Neutrophils # (Manual) (1.3-7.7) k/uL Macrocytosis PT (9.0-12.0) sec INR (<1.2) APTT (22.0-30.0) sec ABG pH (7.35-7.45) ABG pCO2 (35-45) mmHg ABG pO2 (83-108) mmHg ABG O2 Saturation (94-97) % Sodium 131 L (137-145) mmol/L Potassium (3.5-5.1) mmol/L Chloride (98-107) mmol/L Carbon Dioxide (22-30) mmol/L BUN 29 H (9-20) mg/dL Glucose 101 H (74-99) mg/dL POC Glucose (mg/dL) (75-99) mg/dL Plasma Lactic Acid Praveen 2.6 H* (0.7-2.0) mmol/L Calcium 7.4 L (8.4-10.2) mg/dL Total Bilirubin 16.1 H* (0.2-1.3) mg/dL AST 137 H (17-59) U/L Alkaline Phosphatase 138 H (38-126) U/L Ammonia 91 H (<30) umol/L Albumin 2.3 L (3.5-5.0) g/dL Amylase <30 L (30-110) U/L Urine Protein 1+ H (Negative) Urine Ketones 1+ H (Negative) Urine Bilirubin 4+ H (Negative) Ur Leukocyte Esterase Trace H (Negative) Amorphous Sediment Moderate H (None) /hpf Urine Bacteria Occasional H (None) /hpf Urine Mucus Few H (None) /hpf U Tricyclic Antidepress Detected H (NotDetected) U Benzodiazepines Scrn Detected H (NotDetected) Crossmatch 02/22/20 02/22/20 02/22/20 Range/Units 16:50 17:24 19:19 WBC 14.8 H (3.8-10.6) k/uL RBC 2.08 L (4.30-5.90) m/uL Hgb 8.1 L (13.0-17.5) gm/dL Hct 23.8 L (39.0-53.0) % MCV 114.0 H (80.0-100.0) fL MCH 38.8 H (25.0-35.0) pg RDW 21.0 H (11.5-15.5) % Plt Count 75 L (150-450) k/uL Neutrophils # 11.6 H (1.3-7.7) k/uL Neutrophils # (Manual) (1.3-7.7) k/uL Macrocytosis Marked A PT (9.0-12.0) sec INR (<1.2) APTT (22.0-30.0) sec ABG pH (7.35-7.45) ABG pCO2 (35-45) mmHg ABG pO2 (83-108) mmHg ABG O2 Saturation (94-97) % Sodium (137-145) mmol/L Potassium (3.5-5.1) mmol/L Chloride (98-107) mmol/L Carbon Dioxide (22-30) mmol/L BUN (9-20) mg/dL Glucose (74-99) mg/dL POC Glucose (mg/dL) 193 H (75-99) mg/dL Plasma Lactic Acid Praveen 3.1 H* (0.7-2.0) mmol/L Calcium (8.4-10.2) mg/dL Total Bilirubin (0.2-1.3) mg/dL AST (17-59) U/L Alkaline Phosphatase (38-126) U/L Ammonia (<30) umol/L Albumin (3.5-5.0) g/dL Amylase (30-110) U/L Urine Protein (Negative) Urine Ketones (Negative) Urine Bilirubin (Negative) Ur Leukocyte Esterase (Negative) Amorphous Sediment (None) /hpf Urine Bacteria (None) /hpf Urine Mucus (None) /hpf U Tricyclic Antidepress (NotDetected) U Benzodiazepines Scrn (NotDetected) Crossmatch 02/22/20 02/22/20 02/22/20 Range/Units 19:19 20:03 20:45 WBC (3.8-10.6) k/uL RBC (4.30-5.90) m/uL Hgb (13.0-17.5) gm/dL Hct (39.0-53.0) % MCV (80.0-100.0) fL MCH (25.0-35.0) pg RDW (11.5-15.5) % Plt Count (150-450) k/uL Neutrophils # (1.3-7.7) k/uL Neutrophils # (Manual) (1.3-7.7) k/uL Macrocytosis PT (9.0-12.0) sec INR (<1.2) APTT (22.0-30.0) sec ABG pH 7.49 H (7.35-7.45) ABG pCO2 29 L (35-45) mmHg ABG pO2 63 L (83-108) mmHg ABG O2 Saturation 92.0 L (94-97) % Sodium 134 L (137-145) mmol/L Potassium (3.5-5.1) mmol/L Chloride 108 H (98-107) mmol/L Carbon Dioxide 19 L (22-30) mmol/L BUN 29 H (9-20) mg/dL Glucose 111 H (74-99) mg/dL POC Glucose (mg/dL) (75-99) mg/dL Plasma Lactic Acid Praveen 2.2 H* (0.7-2.0) mmol/L Calcium 7.3 L (8.4-10.2) mg/dL Total Bilirubin 14.9 H (0.2-1.3) mg/dL AST 139 H (17-59) U/L Alkaline Phosphatase 137 H (38-126) U/L Ammonia (<30) umol/L Albumin 2.3 L (3.5-5.0) g/dL Amylase (30-110) U/L Urine Protein (Negative) Urine Ketones (Negative) Urine Bilirubin (Negative) Ur Leukocyte Esterase (Negative) Amorphous Sediment (None) /hpf Urine Bacteria (None) /hpf Urine Mucus (None) /hpf U Tricyclic Antidepress (NotDetected) U Benzodiazepines Scrn (NotDetected) Crossmatch 02/22/20 02/22/20 02/22/20 Range/Units 22:50 22:50 22:50 WBC 13.4 H (3.8-10.6) k/uL RBC 1.89 L (4.30-5.90) m/uL Hgb 7.0 L (13.0-17.5) gm/dL Hct 21.6 L (39.0-53.0) % MCV 114.4 H (80.0-100.0) fL MCH 37.3 H (25.0-35.0) pg RDW 20.9 H (11.5-15.5) % Plt Count 72 L (150-450) k/uL Neutrophils # 10.2 H (1.3-7.7) k/uL Neutrophils # (Manual) (1.3-7.7) k/uL Macrocytosis Marked A PT (9.0-12.0) sec INR (<1.2) APTT (22.0-30.0) sec ABG pH (7.35-7.45) ABG pCO2 (35-45) mmHg ABG pO2 (83-108) mmHg ABG O2 Saturation (94-97) % Sodium 135 L (137-145) mmol/L Potassium (3.5-5.1) mmol/L Chloride (98-107) mmol/L Carbon Dioxide 20 L (22-30) mmol/L BUN 26 H (9-20) mg/dL Glucose (74-99) mg/dL POC Glucose (mg/dL) (75-99) mg/dL Plasma Lactic Acid Praveen 2.1 H* (0.7-2.0) mmol/L Calcium 6.5 L (8.4-10.2) mg/dL Total Bilirubin 14.9 H (0.2-1.3) mg/dL AST 127 H (17-59) U/L Alkaline Phosphatase (38-126) U/L Ammonia (<30) umol/L Albumin 2.5 L (3.5-5.0) g/dL Amylase (30-110) U/L Urine Protein (Negative) Urine Ketones (Negative) Urine Bilirubin (Negative) Ur Leukocyte Esterase (Negative) Amorphous Sediment (None) /hpf Urine Bacteria (None) /hpf Urine Mucus (None) /hpf U Tricyclic Antidepress (NotDetected) U Benzodiazepines Scrn (NotDetected) Crossmatch 02/23/20 02/23/20 02/23/20 Range/Units 00:00 04:38 06:09 WBC 15.2 H (3.8-10.6) k/uL RBC 2.55 L (4.30-5.90) m/uL Hgb 9.2 L D (13.0-17.5) gm/dL Hct 27.2 L (39.0-53.0) % MCV 107.0 H D (80.0-100.0) fL MCH 36.2 H (25.0-35.0) pg RDW 23.8 H (11.5-15.5) % Plt Count 79 L (150-450) k/uL Neutrophils # 13.0 H (1.3-7.7) k/uL Neutrophils # (Manual) (1.3-7.7) k/uL Macrocytosis Marked A PT (9.0-12.0) sec INR (<1.2) APTT (22.0-30.0) sec ABG pH 7.25 L (7.35-7.45) ABG pCO2 52 H (35-45) mmHg ABG pO2 79 L (83-108) mmHg ABG O2 Saturation 92.6 L (94-97) % Sodium (137-145) mmol/L Potassium (3.5-5.1) mmol/L Chloride (98-107) mmol/L Carbon Dioxide (22-30) mmol/L BUN (9-20) mg/dL Glucose (74-99) mg/dL POC Glucose (mg/dL) 100 H (75-99) mg/dL Plasma Lactic Acid Praveen (0.7-2.0) mmol/L Calcium (8.4-10.2) mg/dL Total Bilirubin (0.2-1.3) mg/dL AST (17-59) U/L Alkaline Phosphatase (38-126) U/L Ammonia (<30) umol/L Albumin (3.5-5.0) g/dL Amylase (30-110) U/L Urine Protein (Negative) Urine Ketones (Negative) Urine Bilirubin (Negative) Ur Leukocyte Esterase (Negative) Amorphous Sediment (None) /hpf Urine Bacteria (None) /hpf Urine Mucus (None) /hpf U Tricyclic Antidepress (NotDetected) U Benzodiazepines Scrn (NotDetected) Crossmatch 02/23/20 02/23/20 02/23/20 Range/Units 06:09 06:09 07:54 WBC (3.8-10.6) k/uL RBC (4.30-5.90) m/uL Hgb (13.0-17.5) gm/dL Hct (39.0-53.0) % MCV (80.0-100.0) fL MCH (25.0-35.0) pg RDW (11.5-15.5) % Plt Count (150-450) k/uL Neutrophils # (1.3-7.7) k/uL Neutrophils # (Manual) (1.3-7.7) k/uL Macrocytosis PT 18.5 H (9.0-12.0) sec INR 1.9 H (<1.2) APTT (22.0-30.0) sec ABG pH 7.46 H (7.35-7.45) ABG pCO2 31 L (35-45) mmHg ABG pO2 170 H (83-108) mmHg ABG O2 Saturation 99.8 H (94-97) % Sodium (137-145) mmol/L Potassium 5.5 H (3.5-5.1) mmol/L Chloride 112 H (98-107) mmol/L Carbon Dioxide 18 L (22-30) mmol/L BUN 27 H (9-20) mg/dL Glucose (74-99) mg/dL POC Glucose (mg/dL) (75-99) mg/dL Plasma Lactic Acid Praveen (0.7-2.0) mmol/L Calcium 7.1 L (8.4-10.2) mg/dL Total Bilirubin 15.8 H* (0.2-1.3) mg/dL AST 176 H (17-59) U/L Alkaline Phosphatase 129 H (38-126) U/L Ammonia (<30) umol/L Albumin 3.1 L (3.5-5.0) g/dL Amylase (30-110) U/L Urine Protein (Negative) Urine Ketones (Negative) Urine Bilirubin (Negative) Ur Leukocyte Esterase (Negative) Amorphous Sediment (None) /hpf Urine Bacteria (None) /hpf Urine Mucus (None) /hpf U Tricyclic Antidepress (NotDetected) U Benzodiazepines Scrn (NotDetected) Crossmatch 02/23/20 02/23/20 02/23/20 Range/Units 11:04 11:04 11:59 WBC 12.5 H (3.8-10.6) k/uL RBC 2.46 L (4.30-5.90) m/uL Hgb 8.5 L (13.0-17.5) gm/dL Hct 25.7 L (39.0-53.0) % MCV 104.6 H (80.0-100.0) fL MCH (25.0-35.0) pg RDW 23.9 H (11.5-15.5) % Plt Count 64 L (150-450) k/uL Neutrophils # (1.3-7.7) k/uL Neutrophils # (Manual) (1.3-7.7) k/uL Macrocytosis Marked A PT 21.1 H (9.0-12.0) sec INR 2.2 H (<1.2) APTT (22.0-30.0) sec ABG pH (7.35-7.45) ABG pCO2 (35-45) mmHg ABG pO2 (83-108) mmHg ABG O2 Saturation (94-97) % Sodium (137-145) mmol/L Potassium (3.5-5.1) mmol/L Chloride (98-107) mmol/L Carbon Dioxide (22-30) mmol/L BUN (9-20) mg/dL Glucose (74-99) mg/dL POC Glucose (mg/dL) 124 H (75-99) mg/dL Plasma Lactic Acid Praveen (0.7-2.0) mmol/L Calcium (8.4-10.2) mg/dL Total Bilirubin (0.2-1.3) mg/dL AST (17-59) U/L Alkaline Phosphatase (38-126) U/L Ammonia (<30) umol/L Albumin (3.5-5.0) g/dL Amylase (30-110) U/L Urine Protein (Negative) Urine Ketones (Negative) Urine Bilirubin (Negative) Ur Leukocyte Esterase (Negative) Amorphous Sediment (None) /hpf Urine Bacteria (None) /hpf Urine Mucus (None) /hpf U Tricyclic Antidepress (NotDetected) U Benzodiazepines Scrn (NotDetected) Crossmatch Microbiology - Last 24 Hours (Table) 02/23/20 03:46 Sputum Culture - Preliminary Sputum US - abdomen: report reviewed (Ultrasound of the abdomen with findings of ascites with no cholelithiasis or gallbladder dysfunction noted.) Assessment and Plan (1) Acute alcoholic hepatitis Narrative/Plan: 54-year-old male with known history of alcohol abuse presenting to the hospital with altered mental status. Likely multifactorial given suspected underlying decompensated cirrhosis, acute alcoholic hepatitis and concern for aspiration pneumonia and sepsis. Currently receiving treatment in the ICU. Current Visit: Yes Status: Acute Code(s): K70.10 - ALCOHOLIC HEPATITIS WITHOUT ASCITES SNOMED Code(s): 9693049 (2) Liver cirrhosis Current Visit: Yes Status: Acute Code(s): K74.60 - UNSPECIFIED CIRRHOSIS OF LIVER SNOMED Code(s): 56899728 (3) Ascites Current Visit: Yes Status: Acute Code(s): R18.8 - OTHER ASCITES SNOMED Code(s): 287670000 (4) Hepatic encephalopathy Current Visit: Yes Status: Acute Code(s): K72.90 - HEPATIC FAILURE, UNSPECIFIED WITHOUT COMA SNOMED Code(s): 57817209 Plan: Supportive care Nothing by mouth Continue management per materials branch chief service, patient currently intubated and sedated Continue respiratory antibiotic therapy Continue lactulose 3 times a day Can consider paracentesis when patient is medically stable No evidence/signs or symptoms of GI bleeding at this time with anemia likely multifactorial and secondary to myelosuppression from alcohol, we'll continue to monitor for signs or symptoms of GI bleeding Plan is for diuretic therapy and sodium restricted diet after extubation Alcohol abstinence Vitamin K ordered for elevated INR, likely secondary to vitamin K malabsorption and underlying liver disease Thank you for allowing us to participate in the care of the patient we will continue to follow
[2020-02-24] MEDS: IPRATROPIUM-ALBUTEROL 3 ML NEB INHALATION SCH ×4 (07:31→21:07)
[2020-02-24] MEDS: PIPERACILLIN-TAZOBACTAM 3.375 GM in SODIUM CHLORIDE 0.9% 100 ML IVPB SCH ×2 (09:20→15:36)
[2020-02-24] MEDS: PANTOPRAZOLE 40 MG/10 ML VIAL IVP SCH ×2 (09:20→20:24)
[2020-02-24] MEDS: LACTULOSE 20 GM/30 ML CUP PO SCH ×3 (09:21→20:25)
[2020-02-24] MEDS: CHLORHEXIDINE GLUCONATE 15 ML CUP MUCOUS MEM SCH ×2 (09:21→20:24)
--- NOTE | 2020-02-24 11:29 | CDI ---
Documentation Clarification Form Date: 02/24/2020 11:18:37 AM From: Claire Foy RN, CCDS Admit Date: 02/22/2020 04:12:00 PM Patient Name: Iván Banerjee Visit Number: [id number] ATTENTION: The Clinical Documentation Specialists (CDI) and [facility] Coding Staff appreciate your assistance in clarifying documentation. Please respond to the clarification below the line at the bottom and electronically sign. The CDI & [facility] Coding staff will review the response and follow-up if needed. Please note: Queries are made part of the Legal Health Record. If you have any questions, please contact the author of this message via ITS. Dr. Kaiden Solano Hypotension w pressor support in a septic patient is documented and requires further specificity. Patient history/risk factors: ETOH Abuse, CRF stage 1, Aspiration pneumonia Clinical Indicators: 02/22 H&P: "Sepsis secondary to aspiration bilateral pneumonia, possibly abdominal source, acute hypoxic respiratory failure, suspect related to aspiration pneumonia, ventilator dependent. Hypotension, status post pressor support secondary to sepsis Acute GI bleed, possible esophageal varices in a patient with significant alcohol dependence, on Sandostatin." 02/21 1600 Vitals: Temp 101, HR 122, RR 24, and B/P 77/54, Spo2 99% 4 L NC 02/21 1651 V/S: temp 98.9, Hr 109, B/P 89/45, Spo2 90% on 15L High Flow NC Treatment: Levophed titrate for B/P 02/21 4.5 L 0.9% NS IVF Bolus 02/22 1L 0.9%NS IVF Bolus followed by 50 cc/hr In your professional opinion, can you please specify the type of shock if known? Septic Shock Suspected or known causative organism Any associated organ failure Hypovolemic Shock Cause Other, please specify__I have not seen this patient yet, only Yudith has Unable to determine (Last Revision: May 2017) MTDD
[2020-02-24] MEDS: fentaNYL (PF) 1,000 MCG in SODIUM CHLORIDE 0.9% 80 ML IV SCH (11:51)
[2020-02-24] MEDS: FUROSEMIDE 10 MG/ML 4 ML VIAL IV SCH ×2 (11:56→20:24)
[2020-02-24] MEDS: SPIRONOLACTONE 25 MG TAB PO SCH ×3 (11:57→20:25)
[2020-02-24 12:02] LABS: Glucose,Whole Blood 130 mg/dL (75-99)
--- NOTE | 2020-02-24 14:41 | P.PN ---
Subjective Progress Note Date: 02/24/20 Principal diagnosis: Acute hypoxic respiratory failure secondary to aspiration pneumonia, and acute sepsis. This is a 54-year-old white male, history of alcohol abuse, patient was brought into the ER with change in mental status according to EMS. Patient could not give any history, he was a very poor historian upon arrival to the ER. Patient is supposedly a daily drinker, however from my review of the chart, I saw this patient back on 11/11/19, patient presented back then with multiple posterior lateral rib fractures on the right. Apparently he fell in his bathroom, and landed on the side of the top sustaining multiple rib fractures. Patient sustained rib fractures of 910 and 11 ribs. Patient is also known to have history of severe emphysema/COPD. He is legally blind. He has history of pericarditis, anxiety, and history of degenerative joint disease. Patient was discharged home on 11/12/19. Drug screen in the ER was positive for tricyclic antidepressants and positive for benzodiazepines. Rest of the drug screen was basically negative. ABG in the ER showed a pO2 of 63 pCO2 of 29 pH of 7.49. Patient was also noted to have elevated INR of 3.7. Low hemoglobin of 7.0 although his baseline hemoglobin from 2 months ago was 15.1. Ammonia level was 91. Total bilirubin was 14.9, and his liver enzymes were a bit elevated. Normal amylase and lipase were noted. Gallbladder ultrasound showed abdominal ascites. Chest x-ray showed bilateral diffuse infiltrates. Patient was presumed septic upon presentation, received fluid boluses of 2500 ML's. Patient was found to have hepatic encephalopathy liver failure, bilateral pneumonia, GI hemorrhage and sepsis. Early this morning, patient was intubated, placed on mechanical ventilation, and he was aware of the patient since admission. Presently the patient is on assist control rate of 28 tidal volume is 500 FiO2 is 100% PEEP of 5. ABG showed a pO2 of 170 pCO2 of 31 pH of 7.46. Hence I cut down the FiO2 to 50%, increased the PEEP to 8, cut down the tidal volume to 450, and decrease the respiratory rate to 26. Patient is on Sandostatin for his GI bleeding, and he is yet to be seen by gastroenterology on consultation is also on Protonix. He is on lactulose for his elevated ammonia level. And he is empirically on Zosyn for presumptive aspiration pneumonia. Echocardiogram showed evidence of good LV function. And mild valvular heart disease. BNP level was borderline elevated at 910 Patient was reevaluated today on 02/24/20, remains on mechanical ventilation. He is presently on assist control rate of 26 tidal volume is 450 FiO2 of 60% and PEEP of 8. However I increased his PEEP to 12 and cut down his FiO2 to 50%. At night the patient developed worsening agitation, and Stacking his breaths, was not synchronous with mechanical ventilation, hence had to place the patient on Nimbex. Today I plan to discontinue Nimbex and place him on fentanyl 25 g per hour. Patient will be started on tube feeding, and I cut down his IV fluid to 50 MLS per hour. Remains on propofol at 60 mcg/kg/m, Nimbex which will be discontinued, but creatinine which was discontinued this morning, and no repinephrine at 0.06 mcg/kg/m. Enteral feeding to be started today by auto parts clerk. Patient remains on antibiotics, remains on lactulose for his elevated ammonia level which is 80 today. And he remains on Protonix. Chest x- ray showed more consolidation noted bilaterally in both lungs more so in the left lung. Bilateraldisease is noted consistent with aspiration pneumonia. Sputum cultures and blood cultures so far remain on diagnostic. ABG today showed a pO2 of 67 pCO2 of 39 pH of 7.33. WBC count is 14.7 hemoglobin is 8.6 platelets are 66,000 and INR is 2.1. Electrolytes are basically normal renal profile showed beer of 25 creatinine 0.94. Objective - Vital Signs Vital signs: Vital Signs Temp 35.9 F L 02/24/20 14:00 Pulse 108 H 02/24/20 14:00 Resp 26 H 02/24/20 14:00 BP 97/55 02/24/20 14:00 Pulse Ox 96 02/24/20 14:00 Intake & Output 02/23/20 02/24/20 02/24/20 18:59 06:59 18:59 Intake Total 2291.995 0085.644 977.555 Output Total 375 1192 108 Balance 7153.754 4421.644 869.555 Weight 80.2 kg 87.2 kg 87.2 kg Intake: IV 1548.0 1940.0 677.5 0.9 1160 1290 130 Levofloxacin 750Mg-D5w 150 Pmx 750 mg In Dextrose/ Water 1 150ml.bag @ 100 mls/hr IVPB Q24H [facility] Rx#: [id number] Octreotide 500 mcg In 238.0 150.0 37.5 Sodium Chloride 0.9% 250 ml @ 25 MCG/HR 12.5 mls/ hr IV .Q20H [facility] Rx#: [id number] Piperacillin-Tazobactam 3 150 150 100 .375 gm In Sodium Chloride 0.9% 100 ml @ 25 mls/hr IVPB Q8HR [facility] Rx# :[id number] Potassium Chloride 20 meq 200 100 In Water For Injection 1 100ml.bag @ 50 mls/hr IVPB Q2H [facility] Rx#: [id number] Sodium Chloride 0.9% 1, 310 000 ml @ 50 mls/hr IV . Q20H [facility] Rx#:[id number] Intake, IV Titration 195.231 674.644 300.055 Amount Cisatracurium 200 mg In 48.521 Sodium Chloride 0.9% 180 ml @ 1 MCG/KG/MIN 4.812 mls/hr IV .Q24H [facility] Rx#: [id number] Norepinephrine 4 mg In 15.031 208.896 151.534 Sodium Chloride 0.9% 250 ml @ 0.05 MCG/KG/MIN 15. 338 mls/hr IV .[id number] [facility] Rx#:[id number] Octreotide 500 mcg In 246.25 Sodium Chloride 0.9% 250 ml @ 25 MCG/HR 12.5 mls/ hr IV .Q20H [facility] Rx#: [id number] Propofol 1,000 mg In 180.2 219.498 100 Empty Bag 1 bag @ Titrate IV .Q0M [facility] Rx#: [id number] Oral 150 Output: Urine 375 1192 108 Other: Voiding Method Indwelling Catheter Indwelling Catheter Indwelling Catheter ABP, PAP, CO, CI - Last Documented Arterial Blood Pressure 102/47 - Exam Physical Exam: Revealed 54-year-old white male on mechanical ventilation, sedated, on propofol, and paralyzed with Nimbex. Head: Atraumatic, normocephalic. HEENT:[PERRLA, EOMI, positive icterus. No neck masses, no JVD, no stridor, endotracheal tube and orogastric tube are intact. Chest: Crackles and rhonchi bilaterally. No wheezes. Symmetrical chest expansion.] Cardiac Exam: [Normal S1 and S2, no S3 gallop, 2/6 systolic murmur thought the precordium.] Abdomen: [Soft, nontender, suspect positive ascites, no rebound, no guarding, positive bowel sounds. Extremities: [No clubbing, trace of bipedal edema, no cyanosis.] Deformity noted on the dorsal aspect of the right foot, hence I recommended orthopedic evaluation. This is related to trauma. Neurological Exam: Cannot be assessed, patient is fully sedated, on mechanical ventilation. Psychiatric: Could not be assessed. Skin: No rashes. - Labs CBC & Chem 7: 02/24/20 05:05 02/24/20 05:05 Labs: Abnormal Lab Results - Last 24 Hours (Table) 02/23/20 02/23/20 02/23/20 Range/Units 15:43 17:30 17:34 WBC 12.5 H (3.8-10.6) k/uL RBC 2.53 L (4.30-5.90) m/uL Hgb 8.6 L (13.0-17.5) gm/dL Hct 27.0 L (39.0-53.0) % MCV 106.7 H (80.0-100.0) fL RDW 24.1 H (11.5-15.5) % Plt Count 56 L (150-450) k/uL Neutrophils # (1.3-7.7) k/uL Macrocytosis Marked A PT (9.0-12.0) sec INR (<1.2) ABG pH (7.35-7.45) ABG pCO2 32 L (35-45) mmHg ABG pO2 66 L (83-108) mmHg ABG HCO3 20 L (21-25) mmol/L ABG O2 Saturation 92.9 L (94-97) % Potassium 3.2 L (3.5-5.1) mmol/L Chloride 113 H (98-107) mmol/L Carbon Dioxide 20 L (22-30) mmol/L BUN 25 H (9-20) mg/dL Glucose 100 H (74-99) mg/dL POC Glucose (mg/dL) (75-99) mg/dL Calcium 7.1 L (8.4-10.2) mg/dL Total Bilirubin (0.2-1.3) mg/dL AST (17-59) U/L Ammonia (<30) umol/L Albumin (3.5-5.0) g/dL 02/24/20 02/24/20 02/24/20 Range/Units 00:04 05:05 05:05 WBC 14.7 H (3.8-10.6) k/uL RBC 2.46 L (4.30-5.90) m/uL Hgb 8.6 L (13.0-17.5) gm/dL Hct 26.0 L (39.0-53.0) % MCV 105.5 H (80.0-100.0) fL RDW 24.2 H (11.5-15.5) % Plt Count 66 L (150-450) k/uL Neutrophils # 12.0 H (1.3-7.7) k/uL Macrocytosis Marked A PT (9.0-12.0) sec INR (<1.2) ABG pH (7.35-7.45) ABG pCO2 (35-45) mmHg ABG pO2 (83-108) mmHg ABG HCO3 (21-25) mmol/L ABG O2 Saturation (94-97) % Potassium 3.3 L (3.5-5.1) mmol/L Chloride 113 H (98-107) mmol/L Carbon Dioxide 19 L (22-30) mmol/L BUN 25 H (9-20) mg/dL Glucose 130 H (74-99) mg/dL POC Glucose (mg/dL) 203 H (75-99) mg/dL Calcium 7.2 L (8.4-10.2) mg/dL Total Bilirubin 11.3 H (0.2-1.3) mg/dL AST 132 H (17-59) U/L Ammonia (<30) umol/L Albumin 2.3 L (3.5-5.0) g/dL 02/24/20 02/24/20 02/24/20 Range/Units 05:30 05:30 06:59 WBC (3.8-10.6) k/uL RBC (4.30-5.90) m/uL Hgb (13.0-17.5) gm/dL Hct (39.0-53.0) % MCV (80.0-100.0) fL RDW (11.5-15.5) % Plt Count (150-450) k/uL Neutrophils # (1.3-7.7) k/uL Macrocytosis PT 20.8 H (9.0-12.0) sec INR 2.1 H (<1.2) ABG pH 7.33 L (7.35-7.45) ABG pCO2 (35-45) mmHg ABG pO2 67 L (83-108) mmHg ABG HCO3 (21-25) mmol/L ABG O2 Saturation 92.0 L (94-97) % Potassium (3.5-5.1) mmol/L Chloride (98-107) mmol/L Carbon Dioxide (22-30) mmol/L BUN (9-20) mg/dL Glucose (74-99) mg/dL POC Glucose (mg/dL) (75-99) mg/dL Calcium (8.4-10.2) mg/dL Total Bilirubin (0.2-1.3) mg/dL AST (17-59) U/L Ammonia 80 H (<30) umol/L Albumin (3.5-5.0) g/dL 02/24/20 Range/Units 12:01 WBC (3.8-10.6) k/uL RBC (4.30-5.90) m/uL Hgb (13.0-17.5) gm/dL Hct (39.0-53.0) % MCV (80.0-100.0) fL RDW (11.5-15.5) % Plt Count (150-450) k/uL Neutrophils # (1.3-7.7) k/uL Macrocytosis PT (9.0-12.0) sec INR (<1.2) ABG pH (7.35-7.45) ABG pCO2 (35-45) mmHg ABG pO2 (83-108) mmHg ABG HCO3 (21-25) mmol/L ABG O2 Saturation (94-97) % Potassium (3.5-5.1) mmol/L Chloride (98-107) mmol/L Carbon Dioxide (22-30) mmol/L BUN (9-20) mg/dL Glucose (74-99) mg/dL POC Glucose (mg/dL) 130 H (75-99) mg/dL Calcium (8.4-10.2) mg/dL Total Bilirubin (0.2-1.3) mg/dL AST (17-59) U/L Ammonia (<30) umol/L Albumin (3.5-5.0) g/dL Microbiology - Last 24 Hours (Table) 02/23/20 03:46 Gram Stain - Preliminary Sputum Sputum Culture - Preliminary 02/22/20 14:13 Blood Culture - Preliminary Blood No Growth after 24 hours Assessment and Plan Assessment: Impression: Acute hypoxic respiratory failure, suspect aspiration pneumonia. Acute sepsis, likely source is aspiration pneumonia, although abdominal source is not entirely ruled out. Alcohol liver disease with ascites. Jaundice, and elevated liver enzymes. Blood loss anemia, most likely the patient has acute or subacute GI bleeding, GI is following. Procardia tried was discontinued today. Acute hepatic encephalopathy with significantly elevated ammonia level. Remains on lactulose. Recent history of fall about 2 months ago, and multiple right-sided rib fractures. History of alcoholic neuropathy. History of pericarditis Chronic back pain History of restless leg syndrome. Recommendation: Continue ventilatory support. Continue propofol, discontinue Nimbex, use fentanyl instead for now. Continue hemodynamic support, patient is presently on norepinephrine. Empiric antibiotics/Zosyn. Monitor cultures including blood and sputum Monitor coagulopathy and liver profile. Transfuse to a hemoglobin of above 7. Patient already received 2 units of packed RBCs since admission and 4 units of fresh frozen plasma. Today's hemoglobin is 8.6. Prognosis remains extremely poor and guarded. Critical care time is 30 6. Time with Patient: Greater than 30
[2020-02-24] MEDS ORDERED: POTASSIUM BICARBONATE/CIT AC 20 MEQ TABLET.EFF NG-TUBE SCH ×2 (17:00→21:00)
--- NOTE | 2020-02-24 17:25 | P.PN ---
Subjective Progress Note Date: 02/24/20 This is a 54-year-old gentleman, history of polysubstance abuse including alcohol abuse , falls with recent rib fractures, legally blind, osteoarthritis and multiple other medical issues presented to the ER with changes in mental status 2 days. Drug screen positive for tricyclics and benzos, serum alcohol less than 10. UA reported dark brown cloudy urine with occasional bacteria, hyaline casts, 2 WBCs, trace leukocytes, 4+ bilirubin, negative for nitrates. Ammonia level 91, T bili 14.9, currently 15.8 , elevated LFTs .Gallbladder ultrasound reporting abdominal ascites, abdominal x-ray nonacute, right foot x- ray reported no fracture, soft tissue swelling, EKG reported sinus tachycardia, troponin normal, BNP 910, echo reported normal LV function, EF 60-65% ,lactic acid 2.1 now down to 1.7, BUN 25, creatinine 0.8 chest x-ray reporting moderate pulmonary interstitial and airspace edema significantly worse than yesterday, pulmonary edema. ABGs noted. INR on admission 3.7, down to 2.2 Sepsis protocol, Received IV fluid resuscitation, IV antibiotics, cultures drawn. Developed respiratory failure, requiring intubation during the night. Currently on Sandostatin drip. 3 maroon stools during the night. Received 4 units of FFP and 2 units of packed RBCs to date. Hemoglobin currently 8.5. And had required pressor support with Levophed off since . Maintained on IV fluid resuscitation. Telemetry sinus rhythm. Potassium 3.2, magnesium 1.7. 02/24/2020 chest x-ray reporting persistent bilateral scattered airspace infiltrates, pleural effusion unchanged. Ventilator dependent, on FiO2 of 50 with PEEP increased to 12. Continues on lactulose with ammonia down to 80. T bili decreased to 11.3, LFTs improving. No further maroon stools. Small black stool this morning. Hemoglobin 8.6. Telemetry sinus rhythm to sinus tach. Sandostatin drip discontinued this morning. Last night patient asynchronous with vent, stacking breaths, Nimbex drip initiated. This morning Nimbex discontinued, changed to fentanyl drip. Requiring pressor support, Levophed resumed. Received vitamin K yesterday, INR 2.1. Marginal urine output, IV fluids decreased, and Lasix IV push added to med regime. Tube feedings ordered. Afebrile, WBC 14.7. Sputum culture pending, preliminary blood cultures negative at 48 hours. ABGs noted. Objective - Vital Signs Vital signs: Vital Signs Temp 97.2 F L 02/24/20 16:00 Pulse 105 H 02/24/20 16:00 Resp 26 H 02/24/20 16:00 BP 91/51 02/24/20 16:00 Pulse Ox 96 02/24/20 16:00 Intake & Output 02/23/20 02/24/20 02/24/20 18:59 06:59 18:59 Intake Total 6653.673 5875.644 1407.555 Output Total 375 1192 268 Balance 0260.046 5312.644 1139.555 Weight 80.2 kg 87.2 kg 87.2 kg Intake: IV 1548.0 1940.0 1077.5 0.9 1160 1290 130 Levofloxacin 750Mg-D5w 150 Pmx 750 mg In Dextrose/ Water 1 150ml.bag @ 100 mls/hr IVPB Q24H [facility] Rx#: [id number] Octreotide 500 mcg In 238.0 150.0 37.5 Sodium Chloride 0.9% 250 ml @ 25 MCG/HR 12.5 mls/ hr IV .Q20H [facility] Rx#: [id number] Piperacillin-Tazobactam 3 150 150 200 .375 gm In Sodium Chloride 0.9% 100 ml @ 25 mls/hr IVPB Q8HR [facility] Rx# :[id number] Potassium Chloride 20 meq 200 100 In Water For Injection 1 100ml.bag @ 50 mls/hr IVPB Q2H [facility] Rx#: [id number] Sodium Chloride 0.9% 1, 610 000 ml @ 50 mls/hr IV . Q20H [facility] Rx#:[id number] Intake, IV Titration 195.231 674.644 300.055 Amount Cisatracurium 200 mg In 48.521 Sodium Chloride 0.9% 180 ml @ 1 MCG/KG/MIN 4.812 mls/hr IV .Q24H [facility] Rx#: [id number] Norepinephrine 4 mg In 15.031 208.896 151.534 Sodium Chloride 0.9% 250 ml @ 0.05 MCG/KG/MIN 15. 338 mls/hr IV .[id number] [facility] Rx#:[id number] Octreotide 500 mcg In 246.25 Sodium Chloride 0.9% 250 ml @ 25 MCG/HR 12.5 mls/ hr IV .Q20H [facility] Rx#: [id number] Propofol 1,000 mg In 180.2 219.498 100 Empty Bag 1 bag @ Titrate IV .Q0M [facility] Rx#: [id number] Oral 150 30 Output: Urine 375 1192 268 Other: Voiding Method Indwelling Catheter Indwelling Catheter Indwelling Catheter ABP, PAP, CO, CI - Last Documented Arterial Blood Pressure 114/50 - Exam VITAL SIGNS: As above GENERAL: Sitting up in bed, intubated, sedated HEENT: Conjunctivae normal. Positive icterus, jaundice, NG,OG tubes present. NECK: No JVD. No thyroid enlargement. No LNs CARDIOVASCULAR: S1, S2 regular. Systolic murmur RESPIRATION: Coarse Breath sounds diminished in the bases with scattered bilateral rhonchi and crackles ABDOMEN: Soft, distended, positive ascites, positive bowel sounds Extremities: Trace bilateral lower extremity edema, no clubbing, no cyanosis. Dorsal Right foot injury/deformity-orthopedic evaluation pending NERVOUS SYSTEM: Unable to assess, sedated and intubated. Skin: Warm and dry, no rash - Labs CBC & Chem 7: 02/24/20 05:05 02/24/20 14:25 Labs: Abnormal Lab Results - Last 24 Hours (Table) 02/23/20 02/23/20 02/24/20 Range/Units 17:30 17:34 00:04 WBC (3.8-10.6) k/uL RBC (4.30-5.90) m/uL Hgb (13.0-17.5) gm/dL Hct (39.0-53.0) % MCV (80.0-100.0) fL RDW (11.5-15.5) % Plt Count (150-450) k/uL Neutrophils # (1.3-7.7) k/uL Macrocytosis PT (9.0-12.0) sec INR (<1.2) ABG pH (7.35-7.45) ABG pCO2 32 L (35-45) mmHg ABG pO2 66 L (83-108) mmHg ABG HCO3 20 L (21-25) mmol/L ABG O2 Saturation 92.9 L (94-97) % Potassium 3.2 L (3.5-5.1) mmol/L Chloride 113 H (98-107) mmol/L Carbon Dioxide 20 L (22-30) mmol/L BUN 25 H (9-20) mg/dL Glucose 100 H (74-99) mg/dL POC Glucose (mg/dL) 203 H (75-99) mg/dL Calcium 7.1 L (8.4-10.2) mg/dL Total Bilirubin (0.2-1.3) mg/dL AST (17-59) U/L Ammonia (<30) umol/L Albumin (3.5-5.0) g/dL 02/24/20 02/24/20 02/24/20 Range/Units 05:05 05:05 05:30 WBC 14.7 H (3.8-10.6) k/uL RBC 2.46 L (4.30-5.90) m/uL Hgb 8.6 L (13.0-17.5) gm/dL Hct 26.0 L (39.0-53.0) % MCV 105.5 H (80.0-100.0) fL RDW 24.2 H (11.5-15.5) % Plt Count 66 L (150-450) k/uL Neutrophils # 12.0 H (1.3-7.7) k/uL Macrocytosis Marked A PT (9.0-12.0) sec INR (<1.2) ABG pH (7.35-7.45) ABG pCO2 (35-45) mmHg ABG pO2 (83-108) mmHg ABG HCO3 (21-25) mmol/L ABG O2 Saturation (94-97) % Potassium 3.3 L (3.5-5.1) mmol/L Chloride 113 H (98-107) mmol/L Carbon Dioxide 19 L (22-30) mmol/L BUN 25 H (9-20) mg/dL Glucose 130 H (74-99) mg/dL POC Glucose (mg/dL) (75-99) mg/dL Calcium 7.2 L (8.4-10.2) mg/dL Total Bilirubin 11.3 H (0.2-1.3) mg/dL AST 132 H (17-59) U/L Ammonia 80 H (<30) umol/L Albumin 2.3 L (3.5-5.0) g/dL 02/24/20 02/24/20 02/24/20 Range/Units 05:30 06:59 12:01 WBC (3.8-10.6) k/uL RBC (4.30-5.90) m/uL Hgb (13.0-17.5) gm/dL Hct (39.0-53.0) % MCV (80.0-100.0) fL RDW (11.5-15.5) % Plt Count (150-450) k/uL Neutrophils # (1.3-7.7) k/uL Macrocytosis PT 20.8 H (9.0-12.0) sec INR 2.1 H (<1.2) ABG pH 7.33 L (7.35-7.45) ABG pCO2 (35-45) mmHg ABG pO2 67 L (83-108) mmHg ABG HCO3 (21-25) mmol/L ABG O2 Saturation 92.0 L (94-97) % Potassium (3.5-5.1) mmol/L Chloride (98-107) mmol/L Carbon Dioxide (22-30) mmol/L BUN (9-20) mg/dL Glucose (74-99) mg/dL POC Glucose (mg/dL) 130 H (75-99) mg/dL Calcium (8.4-10.2) mg/dL Total Bilirubin (0.2-1.3) mg/dL AST (17-59) U/L Ammonia (<30) umol/L Albumin (3.5-5.0) g/dL Microbiology - Last 24 Hours (Table) 02/22/20 14:13 Blood Culture - Preliminary Blood No Growth after 48 hours 02/23/20 03:46 Gram Stain - Preliminary Sputum Sputum Culture - Preliminary Assessment and Plan Assessment: Sepsis secondary to aspiration bilateral pneumonia, possibly abdominal source, Acute hypoxic respiratory failure, related to the above, ventilator dependent Septic and hypovolemic shock multifactorial, secondary to bilateral aspiration pneumonia, alcoholic liver disease Hypotension, secondary to the above, pressor support dependent secondary to sepsis Acute GI bleed, possible esophageal varices in a patient with significant alcohol dependence, on Sandostatin Acute blood loss anemia, status post multiple transfusions of both FFP, packed RBCs Acute Hepatic encephalopathy Alcoholic liver disease with ascites Recent posterior lateral rib fractures of 9, 10 and 11 status post fall History of pericarditis Chronic back pain Polysubstance abuse, per record review; patient reports alcohol, marijuana use currently. History of nicotine dependence COPD, emphysema Legally blind Obesity, BMI 30.7 Osteoarthritis Venous insufficiency Anxiety, depression, history of, currently controlled Plan: Continue on current medication regime ,monitoring and symptomatic treatment. ICU management/Vent support as per clinching machine operator. Monitor cultures closely .Continue on Lactulose,empiric antibiotics .paracentesis on hold, as per GI, until hemodynamically stable . Close monitoring of coags. orthopedic surgery consult in place for evaluation of right foot.Prognosis guarded given multiple complex medical issues. The impression and plan of care has been dictated as directed. : I performed a history and examination of this patient, discussed the same with the dictator. I agree with the dictator's note ,documented as a scribe. Any additional findings or plans will be noted.
[2020-02-25 00:01] LABS: Glucose,Whole Blood 130 mg/dL (75-99)
[2020-02-25] MEDS: PIPERACILLIN-TAZOBACTAM 3.375 GM in SODIUM CHLORIDE 0.9% 100 ML IVPB SCH ×3 (00:10→17:15)
[2020-02-25] MEDS: ARTIFICIAL TEARS OINTMENT 3.5 GM TUBE BOTH EYES SCH ×6 (00:11→21:46)
[2020-02-25] MEDS: NOREPINEPHRINE 4 MG in SODIUM CHLORIDE 0.9% 250 ML IV SCH ×2 (00:11→06:54)
[2020-02-25] MEDS: ARTIFICIAL TEARS-HYPROMELLOSE DROPS 15 ML BTL BOTH EYES SCH ×6 (00:11→21:46)
[2020-02-25] MEDS: PROPOFOL 1,000 MG in EMPTY BAG 1 BAG IV SCH ×8 (00:13→21:58)
--- NOTE | 2020-02-25 02:00 | P.PN ---
Subjective Progress Note Date: 02/24/20 Principal diagnosis: Alcoholic hepatitis, alcoholic cirrhosis of the liver with ascites, hepatic encephalopathy, elevated liver enzymes Patient is seen in the intensive care unit where he rings intubated and sedated. No acute events. No signs or symptoms of GI bleed. Objective - Vital Signs Vital signs: Vital Signs Temp 95.7 F L 02/24/20 08:00 Pulse 101 H 02/24/20 11:30 Resp 26 H 02/24/20 10:00 BP 99/55 02/24/20 10:00 Pulse Ox 95 02/24/20 10:00 Intake & Output 02/23/20 02/24/20 02/24/20 18:59 06:59 18:59 Intake Total 0736.199 4799.644 977.555 Output Total 375 1192 108 Balance 8274.102 6298.644 869.555 Weight 80.2 kg 87.2 kg 87.2 kg Intake: IV 1548.0 1940.0 677.5 0.9 1160 1290 130 Levofloxacin 750Mg-D5w 150 Pmx 750 mg In Dextrose/ Water 1 150ml.bag @ 100 mls/hr IVPB Q24H [facility] Rx#: [id number] Octreotide 500 mcg In 238.0 150.0 37.5 Sodium Chloride 0.9% 250 ml @ 25 MCG/HR 12.5 mls/ hr IV .Q20H [facility] Rx#: [id number] Piperacillin-Tazobactam 3 150 150 100 .375 gm In Sodium Chloride 0.9% 100 ml @ 25 mls/hr IVPB Q8HR [facility] Rx# :[id number] Potassium Chloride 20 meq 200 100 In Water For Injection 1 100ml.bag @ 50 mls/hr IVPB Q2H [facility] Rx#: [id number] Sodium Chloride 0.9% 1, 310 000 ml @ 50 mls/hr IV . Q20H [facility] Rx#:[id number] Intake, IV Titration 195.231 674.644 300.055 Amount Cisatracurium 200 mg In 48.521 Sodium Chloride 0.9% 180 ml @ 1 MCG/KG/MIN 4.812 mls/hr IV .Q24H [facility] Rx#: [id number] Norepinephrine 4 mg In 15.031 208.896 151.534 Sodium Chloride 0.9% 250 ml @ 0.05 MCG/KG/MIN 15. 338 mls/hr IV .[id number] [facility] Rx#:[id number] Octreotide 500 mcg In 246.25 Sodium Chloride 0.9% 250 ml @ 25 MCG/HR 12.5 mls/ hr IV .Q20H [facility] Rx#: [id number] Propofol 1,000 mg In 180.2 219.498 100 Empty Bag 1 bag @ Titrate IV .Q0M [facility] Rx#: [id number] Oral 150 Output: Urine 375 1192 108 Other: Voiding Method Indwelling Catheter Indwelling Catheter Indwelling Catheter ABP, PAP, CO, CI - Last Documented Arterial Blood Pressure 92/59 - Exam On physical examination, patient appears comfortable in no apparent distress. HEAD: Normocephalic, atraumatic. EYES: Scleral icterus. No conjunctival injection. MOUTH: No lesions, tongue midline, endotracheal tube in place. NECK: Trachea midline, no gross abnormalities. CHEST: Coarse respiratory noises in all lung soni on mechanical ventilation. ABDOMEN: Soft, obese. Bowel sounds are positive. No organomegaly. No guarding or rigidity. EXTREMITIES: Bilateral pedal edema. SKIN: No rashes, jaundice. NEUROLOGIC: Intubated and sedated. - Labs CBC & Chem 7: 02/24/20 05:05 02/24/20 18:40 Labs: Abnormal Lab Results - Last 24 Hours (Table) 02/23/20 02/23/20 02/23/20 Range/Units 15:43 17:30 17:34 WBC 12.5 H (3.8-10.6) k/uL RBC 2.53 L (4.30-5.90) m/uL Hgb 8.6 L (13.0-17.5) gm/dL Hct 27.0 L (39.0-53.0) % MCV 106.7 H (80.0-100.0) fL RDW 24.1 H (11.5-15.5) % Plt Count 56 L (150-450) k/uL Neutrophils # (1.3-7.7) k/uL Macrocytosis Marked A PT (9.0-12.0) sec INR (<1.2) ABG pH (7.35-7.45) ABG pCO2 32 L (35-45) mmHg ABG pO2 66 L (83-108) mmHg ABG HCO3 20 L (21-25) mmol/L ABG O2 Saturation 92.9 L (94-97) % Potassium 3.2 L (3.5-5.1) mmol/L Chloride 113 H (98-107) mmol/L Carbon Dioxide 20 L (22-30) mmol/L BUN 25 H (9-20) mg/dL Glucose 100 H (74-99) mg/dL POC Glucose (mg/dL) (75-99) mg/dL Calcium 7.1 L (8.4-10.2) mg/dL Total Bilirubin (0.2-1.3) mg/dL AST (17-59) U/L Ammonia (<30) umol/L Albumin (3.5-5.0) g/dL 02/24/20 02/24/20 02/24/20 Range/Units 00:04 05:05 05:05 WBC 14.7 H (3.8-10.6) k/uL RBC 2.46 L (4.30-5.90) m/uL Hgb 8.6 L (13.0-17.5) gm/dL Hct 26.0 L (39.0-53.0) % MCV 105.5 H (80.0-100.0) fL RDW 24.2 H (11.5-15.5) % Plt Count 66 L (150-450) k/uL Neutrophils # 12.0 H (1.3-7.7) k/uL Macrocytosis Marked A PT (9.0-12.0) sec INR (<1.2) ABG pH (7.35-7.45) ABG pCO2 (35-45) mmHg ABG pO2 (83-108) mmHg ABG HCO3 (21-25) mmol/L ABG O2 Saturation (94-97) % Potassium 3.3 L (3.5-5.1) mmol/L Chloride 113 H (98-107) mmol/L Carbon Dioxide 19 L (22-30) mmol/L BUN 25 H (9-20) mg/dL Glucose 130 H (74-99) mg/dL POC Glucose (mg/dL) 203 H (75-99) mg/dL Calcium 7.2 L (8.4-10.2) mg/dL Total Bilirubin 11.3 H (0.2-1.3) mg/dL AST 132 H (17-59) U/L Ammonia (<30) umol/L Albumin 2.3 L (3.5-5.0) g/dL 02/24/20 02/24/20 02/24/20 Range/Units 05:30 05:30 06:59 WBC (3.8-10.6) k/uL RBC (4.30-5.90) m/uL Hgb (13.0-17.5) gm/dL Hct (39.0-53.0) % MCV (80.0-100.0) fL RDW (11.5-15.5) % Plt Count (150-450) k/uL Neutrophils # (1.3-7.7) k/uL Macrocytosis PT 20.8 H (9.0-12.0) sec INR 2.1 H (<1.2) ABG pH 7.33 L (7.35-7.45) ABG pCO2 (35-45) mmHg ABG pO2 67 L (83-108) mmHg ABG HCO3 (21-25) mmol/L ABG O2 Saturation 92.0 L (94-97) % Potassium (3.5-5.1) mmol/L Chloride (98-107) mmol/L Carbon Dioxide (22-30) mmol/L BUN (9-20) mg/dL Glucose (74-99) mg/dL POC Glucose (mg/dL) (75-99) mg/dL Calcium (8.4-10.2) mg/dL Total Bilirubin (0.2-1.3) mg/dL AST (17-59) U/L Ammonia 80 H (<30) umol/L Albumin (3.5-5.0) g/dL 02/24/20 Range/Units 12:01 WBC (3.8-10.6) k/uL RBC (4.30-5.90) m/uL Hgb (13.0-17.5) gm/dL Hct (39.0-53.0) % MCV (80.0-100.0) fL RDW (11.5-15.5) % Plt Count (150-450) k/uL Neutrophils # (1.3-7.7) k/uL Macrocytosis PT (9.0-12.0) sec INR (<1.2) ABG pH (7.35-7.45) ABG pCO2 (35-45) mmHg ABG pO2 (83-108) mmHg ABG HCO3 (21-25) mmol/L ABG O2 Saturation (94-97) % Potassium (3.5-5.1) mmol/L Chloride (98-107) mmol/L Carbon Dioxide (22-30) mmol/L BUN (9-20) mg/dL Glucose (74-99) mg/dL POC Glucose (mg/dL) 130 H (75-99) mg/dL Calcium (8.4-10.2) mg/dL Total Bilirubin (0.2-1.3) mg/dL AST (17-59) U/L Ammonia (<30) umol/L Albumin (3.5-5.0) g/dL Microbiology - Last 24 Hours (Table) 02/23/20 03:46 Gram Stain - Preliminary Sputum Sputum Culture - Preliminary 02/22/20 14:13 Blood Culture - Preliminary Blood No Growth after 24 hours Assessment and Plan (1) Acute alcoholic hepatitis Narrative/Plan: 54-year-old male with known history of alcohol abuse presenting to the hospital with altered mental status. Likely multifactorial given suspected underlying decompensated cirrhosis, acute alcoholic hepatitis and concern for aspiration pneumonia and sepsis. Currently receiving treatment in the ICU, he remains on broad-spectrum antibiotic therapy and mechanically ventilated. Current Visit: Yes Status: Acute Code(s): K70.10 - ALCOHOLIC HEPATITIS WITHOUT ASCITES SNOMED Code(s): 1491060 (2) Liver cirrhosis Current Visit: Yes Status: Acute Code(s): K74.60 - UNSPECIFIED CIRRHOSIS OF LIVER SNOMED Code(s): 45803146 (3) Ascites Current Visit: Yes Status: Acute Code(s): R18.8 - OTHER ASCITES SNOMED Code(s): 346411566 (4) Hepatic encephalopathy Current Visit: Yes Status: Acute Code(s): K72.90 - HEPATIC FAILURE, UNSPECIFIED WITHOUT COMA SNOMED Code(s): 36240228 Plan: Supportive care Nothing by mouth Continue management per telephone service representative service, patient currently intubated and sedated Continue respiratory antibiotic therapy Continue lactulose 3 times a day Can consider paracentesis when patient is medically stable No evidence/signs or symptoms of GI bleeding at this time with anemia likely multifactorial and secondary to myelosuppression from alcohol, we'll continue to monitor for signs or symptoms of GI bleeding Plan is for diuretic therapy and sodium restricted diet after extubation Alcohol abstinence Thank you for allowing us to participate in the care of the patient we will continue to follow
[2020-02-25 04:44] LABS: Anisocytosis Moderate; Basophils # (A) 0.1 k/uL (0-0.2); Basophils % (A) 1 %; Eosinophils # (A) 0.3 k/uL (0-0.7); Eosinophils % (A) 2 %; HCT 26.7 % (39.0-53.0); HGB 9.4 gm/dL (13.0-17.5); Hypochromasia Slight; Lymphocytes # (A) 2.7 k/uL (1.0-4.8); Lymphocytes % (A) 19 %; MCH 37.7 pg (25.0-35.0); MCHC 35.3 g/dL (31.0-37.0); Mean Platelet Volume 8.9; Monocytes # (A) 0.8 k/uL (0-1.0); Monocytes % (A) 6 %; Neutrophils # (A) 9.8 k/uL (1.3-7.7); Neutrophils % (A) 69 %; RBC 2.49 m/uL (4.30-5.90); RDW 23.8 % (11.5-15.5); WBC 14.1 k/uL (3.8-10.6)
[2020-02-25 04:46] LABS: Macrocytosis Marked; Platelet Count 75 k/uL (150-450)
[2020-02-25 05:00] LABS: Albumin 2.3 g/dL (3.5-5.0); Calcium 7.5 mg/dL (8.4-10.2); Potassium 3.4 mmol/L (3.5-5.1); Total Bilirubin 8.9 mg/dL (0.2-1.3); Total Protein 6.7 g/dL (6.3-8.2)
[2020-02-25 05:03] LABS: INR 1.7 (<1.2); Prothrombin Time 17.1 sec (9.0-12.0)
[2020-02-25] MEDS: POTASSIUM CHLORIDE 20 MEQ in WATER FOR INJECTION 1 100ML.BAG IVPB SCH ×2 (05:31→08:26)
[2020-02-25] MEDS: fentaNYL (PF) 1,000 MCG in SODIUM CHLORIDE 0.9% 80 ML IV SCH ×2 (06:04→14:21)
--- NOTE | 2020-02-25 07:05 | XR ---
EXAMINATION TYPE: XR chest 1V portable DATE OF EXAM: 02/25/2020 COMPARISON: 02/24/2020 HISTORY: SOB, Follow Up FINDINGS: Indwelling tubes and catheters are unchanged. Scattered air space infiltrates persist although there is improving aeration left lower lobe. Stable appearance of the cardio-mediastinal structures at this time. Pleural effusion unchanged. IMPRESSION: 1. Scattered air space infiltrates persist although there is improving aeration left lower lobe. Cli nical correlation and follow up until resolution is recommended.
[2020-02-25 07:08] LABS: ABG Base Excess -4.6 mmol/L; ABG HCO3 21 mmol/L (21-25); ABG Oxygen Saturation 92.2 % (94-97); ABG PCO2 37 mmHg (35-45); ABG PH 7.36 (7.35-7.45); ABG PO2 65 mmHg (83-108); ABG TCO2 22 mmol/L (19-24)
[2020-02-25 07:09] LABS: Allen Test Performed? no
[2020-02-25] MEDS: methylPREDNISolone SOD SUCCI 40 MG/ML 1 ML VIAL IV SCH ×2 (08:40→17:15)
[2020-02-25] MEDS: FUROSEMIDE 10 MG/ML 4 ML VIAL IV SCH ×2 (08:40→21:45)
[2020-02-25] MEDS: LACTULOSE 20 GM/30 ML CUP PO SCH ×4 (08:40→21:44)
[2020-02-25] MEDS: SODIUM CHLORIDE 0.9% 1,000 ML IV SCH (08:40)
[2020-02-25] MEDS: CHLORHEXIDINE GLUCONATE 15 ML CUP MUCOUS MEM SCH ×2 (08:40→21:45)
[2020-02-25] MEDS: PANTOPRAZOLE 40 MG/10 ML VIAL IVP SCH ×2 (08:42→21:45)
[2020-02-25] MEDS: SPIRONOLACTONE 25 MG TAB PO SCH ×3 (08:42→21:45)
[2020-02-25 09:10] LABS: Magnesium 1.7 mg/dL (1.6-2.3); Phosphorus 2.9 mg/dL (2.5-4.5)
[2020-02-25] MEDS: IPRATROPIUM-ALBUTEROL 3 ML NEB INHALATION SCH ×4 (09:52→20:05)
[2020-02-25] MEDS: RIFAXIMIN 550 MG TABLET PO SCH ×2 (11:10→21:47)
[2020-02-25 12:17] LABS: Glucose,Whole Blood 165 mg/dL (75-99)
[2020-02-25] MEDS: INSULIN ASPART (NovoLOG) 100 UNIT/ML VIAL SQ SCH ×2 (12:51→17:14)
[2020-02-25] MEDS ORDERED: LACTULOSE 20 GM/30 ML CUP PO SCH (13:00)
--- NOTE | 2020-02-25 13:25 | P.PN ---
Subjective Progress Note Date: 02/25/20 Principal diagnosis: Acute hypoxic respiratory failure secondary to aspiration pneumonia, and acute sepsis. This is a 54-year-old white male, history of alcohol abuse, patient was brought into the ER with change in mental status according to EMS. Patient could not give any history, he was a very poor historian upon arrival to the ER. Patient is supposedly a daily drinker, however from my review of the chart, I saw this patient back on 11/11/19, patient presented back then with multiple posterior lateral rib fractures on the right. Apparently he fell in his bathroom, and landed on the side of the top sustaining multiple rib fractures. Patient sustained rib fractures of 910 and 11 ribs. Patient is also known to have history of severe emphysema/COPD. He is legally blind. He has history of pericarditis, anxiety, and history of degenerative joint disease. Patient was discharged home on 11/12/19. Drug screen in the ER was positive for tricyclic antidepressants and positive for benzodiazepines. Rest of the drug screen was basically negative. ABG in the ER showed a pO2 of 63 pCO2 of 29 pH of 7.49. Patient was also noted to have elevated INR of 3.7. Low hemoglobin of 7.0 although his baseline hemoglobin from 2 months ago was 15.1. Ammonia level was 91. Total bilirubin was 14.9, and his liver enzymes were a bit elevated. Normal amylase and lipase were noted. Gallbladder ultrasound showed abdominal ascites. Chest x-ray showed bilateral diffuse infiltrates. Patient was presumed septic upon presentation, received fluid boluses of 2500 ML's. Patient was found to have hepatic encephalopathy liver failure, bilateral pneumonia, GI hemorrhage and sepsis. Early this morning, patient was intubated, placed on mechanical ventilation, and he was aware of the patient since admission. Presently the patient is on assist control rate of 28 tidal volume is 500 FiO2 is 100% PEEP of 5. ABG showed a pO2 of 170 pCO2 of 31 pH of 7.46. Hence I cut down the FiO2 to 50%, increased the PEEP to 8, cut down the tidal volume to 450, and decrease the respiratory rate to 26. Patient is on Sandostatin for his GI bleeding, and he is yet to be seen by gastroenterology on consultation is also on Protonix. He is on lactulose for his elevated ammonia level. And he is empirically on Zosyn for presumptive aspiration pneumonia. Echocardiogram showed evidence of good LV function. And mild valvular heart disease. BNP level was borderline elevated at 910 Patient was reevaluated today on 02/24/20, remains on mechanical ventilation. He is presently on assist control rate of 26 tidal volume is 450 FiO2 of 60% and PEEP of 8. However I increased his PEEP to 12 and cut down his FiO2 to 50%. At night the patient developed worsening agitation, and Stacking his breaths, was not synchronous with mechanical ventilation, hence had to place the patient on Nimbex. Today I plan to discontinue Nimbex and place him on fentanyl 25 g per hour. Patient will be started on tube feeding, and I cut down his IV fluid to 50 MLS per hour. Remains on propofol at 60 mcg/kg/m, Nimbex which will be discontinued, but creatinine which was discontinued this morning, and no repinephrine at 0.06 mcg/kg/m. Enteral feeding to be started today by superintendent generating plant. Patient remains on antibiotics, remains on lactulose for his elevated ammonia level which is 80 today. And he remains on Protonix. Chest x- ray showed more consolidation noted bilaterally in both lungs more so in the left lung. Bilateraldisease is noted consistent with aspiration pneumonia. Sputum cultures and blood cultures so far remain on diagnostic. ABG today showed a pO2 of 67 pCO2 of 39 pH of 7.33. WBC count is 14.7 hemoglobin is 8.6 platelets are 66,000 and INR is 2.1. Electrolytes are basically normal renal profile showed beer of 25 creatinine 0.94. Patient was reevaluated today on 02/25/20, remains in the intensive care unit, remains on mechanical ventilation. His ventilator settings are assist control rate of 26, tidal volume is 450 FiO2 is 50% and PEEP is at 12. ABG showed a pO2 of 65 pCO2 of 37 pH of 7.36, hence no change was made in the ventilator settings. Patient remains on norepinephrine at 0.09 mcg/kg/m, propofol at 45 mcg/kg/m, fentanyl at 0.5 mcg/kg/h. Remains on enteral feeding at 30 MLS per hour goal is 45. Remains on Zosyn for empiric coverage of aspiration pneumonia. Remains on lactulose and the dose was increased to 45 ML 4 times a day, and added Xifaxan at 550 mg twice a day. His lactulose does not seem to be inducing enough diarrhea did get his ammonia level down. Continues to have significantly elevated ammonia level in spite of lactulose for the last 2 days. Patient continues to have ascites. And no plans for paracentesis as recommended by gastroenterology at this point. Chest x-ray showed very minimal improvement if any in his bilateral infiltrates. The bilateral infiltrates are suggestive of aspiration pneumonia. Obviously the patient is known to have history of alcoholism, and he presented with alcoholic liver hepatitis, and hepatic en cephalopathy. Labs today were all reviewed WBC is 14.1 hemoglobin is 9.4 platelets are 75,000 INR is 1.7. Electrolytes are unremarkable except for low potassium of 3.4 BUN of 27 creatinine 1.32. Liver enzymes are borderline elevated. Total bilirubin is improving down to 8.9 today. Albumin is 2.3 Objective - Vital Signs Vital signs: Vital Signs Temp 97.2 F L 02/25/20 08:00 Pulse 93 02/25/20 11:00 Resp 25 H 02/25/20 11:00 BP 101/61 02/25/20 11:00 Pulse Ox 94 L 02/25/20 11:00 Intake & Output 02/24/20 02/25/20 02/25/20 18:59 06:59 18:59 Intake Total 8908.272 8529.038 835.988 Output Total 493 670 575 Balance 9308.075 4991.038 260.988 Weight 87.2 kg 89 kg Intake: IV 1177.5 700 362 0.9 130 Normal Saline Pressure 12 Bag Octreotide 500 mcg In 37.5 Sodium Chloride 0.9% 250 ml @ 25 MCG/HR 12.5 mls/ hr IV .Q20H [facility] Rx#: [id number] Piperacillin-Tazobactam 3 200 100 100 .375 gm In Sodium Chloride 0.9% 100 ml @ 25 mls/hr IVPB Q8HR [facility] Rx# :[id number] Potassium Chloride 20 meq 100 In Water For Injection 1 100ml.bag @ 50 mls/hr IVPB Q2H [facility] Rx#: [id number] Sodium Chloride 0.9% 1, 710 600 250 000 ml @ 50 mls/hr IV . Q20H [facility] Rx#:[id number] Intake, IV Titration 482.014 967.038 253.988 Amount Cisatracurium 200 mg In 48.521 Sodium Chloride 0.9% 180 ml @ 1 MCG/KG/MIN 4.812 mls/hr IV .Q24H [facility] Rx#: [id number] Norepinephrine 4 mg In 226.691 417.800 53.988 Sodium Chloride 0.9% 250 ml @ 0.05 MCG/KG/MIN 15. 338 mls/hr IV .[id number] [facility] Rx#:[id number] Potassium Chloride 20 meq 100 100 In Water For Injection 1 100ml.bag @ 50 mls/hr IVPB Q2H [facility] Rx#: [id number] Propofol 1,000 mg In 206.802 358.155 100.000 Empty Bag 1 bag @ Titrate IV .Q0M [facility] Rx#: [id number] fentaNYL (PF) 1,000 mcg 91.083 In Sodium Chloride 0.9% 80 ml @ 50 MCG/HR 5 mls/ hr IV .Q20H [facility] Rx#: [id number] Oral 30 Tube Feeding 180 130 Other 30 90 Output: Urine 493 670 575 Other: Voiding Method Indwelling Catheter Indwelling Catheter Indwelling Catheter ABP, PAP, CO, CI - Last Documented Arterial Blood Pressure 116/58 - Exam Physical Exam: Revealed 54-year-old white male on mechanical ventilation, sedated, on propofol, and on fentanyl, off Nimbex for the last 24 hours Head: Atraumatic, normocephalic. HEENT:[PERRLA, EOMI, positive icterus. No neck masses, no JVD, no stridor, endotracheal tube and orogastric tube are intact. Chest: Crackles and rhonchi bilaterally. No wheezes. Symmetrical chest expansion.] Cardiac Exam: [Normal S1 and S2, no S3 gallop, 2/6 systolic murmur thought the precordium.] Abdomen: [Soft, nontender, suspect positive ascites, no rebound, no guarding, positive bowel sounds. Extremities: [No clubbing, trace of bipedal edema, no cyanosis.] Deformity noted on the dorsal aspect of the right foot, hence I recommended orthopedic evaluation. This is related to trauma. Neurological Exam: Cannot be assessed, patient is fully sedated, on mechanical ventilation. Psychiatric: Could not be assessed. Skin: No rashes. - Labs CBC & Chem 7: 02/25/20 04:30 02/25/20 04:30 Labs: Abnormal Lab Results - Last 24 Hours (Table) 02/25/20 02/25/20 02/25/20 Range/Units 00:00 04:30 04:30 WBC (3.8-10.6) k/uL RBC (4.30-5.90) m/uL Hgb (13.0-17.5) gm/dL Hct (39.0-53.0) % MCV (80.0-100.0) fL MCH (25.0-35.0) pg RDW (11.5-15.5) % Plt Count (150-450) k/uL Neutrophils # (1.3-7.7) k/uL Macrocytosis PT (9.0-12.0) sec INR (<1.2) ABG pO2 (83-108) mmHg ABG O2 Saturation (94-97) % Potassium 3.4 L (3.5-5.1) mmol/L Chloride 116 H (98-107) mmol/L Carbon Dioxide 19 L (22-30) mmol/L BUN 27 H (9-20) mg/dL Creatinine 1.32 H (0.66-1.25) mg/dL Glucose 121 H (74-99) mg/dL POC Glucose (mg/dL) 130 H (75-99) mg/dL Calcium 7.5 L (8.4-10.2) mg/dL Total Bilirubin 8.9 H (0.2-1.3) mg/dL AST 164 H (17-59) U/L Ammonia 89 H (<30) umol/L Albumin 2.3 L (3.5-5.0) g/dL 02/25/20 02/25/20 02/25/20 Range/Units 04:30 04:30 07:05 WBC 14.1 H (3.8-10.6) k/uL RBC 2.49 L (4.30-5.90) m/uL Hgb 9.4 L (13.0-17.5) gm/dL Hct 26.7 L (39.0-53.0) % MCV 107.0 H (80.0-100.0) fL MCH 37.7 H (25.0-35.0) pg RDW 23.8 H (11.5-15.5) % Plt Count 75 L (150-450) k/uL Neutrophils # 9.8 H (1.3-7.7) k/uL Macrocytosis Marked A PT 17.1 H (9.0-12.0) sec INR 1.7 H (<1.2) ABG pO2 65 L (83-108) mmHg ABG O2 Saturation 92.2 L (94-97) % Potassium (3.5-5.1) mmol/L Chloride (98-107) mmol/L Carbon Dioxide (22-30) mmol/L BUN (9-20) mg/dL Creatinine (0.66-1.25) mg/dL Glucose (74-99) mg/dL POC Glucose (mg/dL) (75-99) mg/dL Calcium (8.4-10.2) mg/dL Total Bilirubin (0.2-1.3) mg/dL AST (17-59) U/L Ammonia (<30) umol/L Albumin (3.5-5.0) g/dL 02/25/20 Range/Units 12:16 WBC (3.8-10.6) k/uL RBC (4.30-5.90) m/uL Hgb (13.0-17.5) gm/dL Hct (39.0-53.0) % MCV (80.0-100.0) fL MCH (25.0-35.0) pg RDW (11.5-15.5) % Plt Count (150-450) k/uL Neutrophils # (1.3-7.7) k/uL Macrocytosis PT (9.0-12.0) sec INR (<1.2) ABG pO2 (83-108) mmHg ABG O2 Saturation (94-97) % Potassium (3.5-5.1) mmol/L Chloride (98-107) mmol/L Carbon Dioxide (22-30) mmol/L BUN (9-20) mg/dL Creatinine (0.66-1.25) mg/dL Glucose (74-99) mg/dL POC Glucose (mg/dL) 165 H (75-99) mg/dL Calcium (8.4-10.2) mg/dL Total Bilirubin (0.2-1.3) mg/dL AST (17-59) U/L Ammonia (<30) umol/L Albumin (3.5-5.0) g/dL Microbiology - Last 24 Hours (Table) 02/22/20 14:13 Blood Culture - Preliminary Blood No Growth after 48 hours 02/23/20 03:46 Gram Stain - Preliminary Sputum Sputum Culture - Preliminary Assessment and Plan Assessment: Impression: Acute hypoxic respiratory failure, suspect aspiration pneumonia. Acute sepsis, likely source is aspiration pneumonia, although abdominal source is not entirely ruled out. Blood cultures and sputum cultures remain nondiagnostic Alcohol liver disease with ascites. Jaundice, and elevated liver enzymes. Blood loss anemia, most likely the patient has acute or subacute GI bleeding, GI is following. Acute hepatic encephalopathy with significantly elevated ammonia level. Remains on lactulose. Dose was increased today, and I added Xifaxan Recent history of fall about 2 months ago, and multiple right-sided rib fractures. History of alcoholic neuropathy. History of pericarditis Chronic back pain History of restless leg syndrome. Recommendation: Continue ventilatory support. Continue propofol, and fentanyl. Continue hemodynamic support, patient is presently on norepinephrine. At 0.09 mcg/kg/m. Empiric antibiotics/Zosyn. Monitor cultures including blood and sputum, so far nondiagnostic. Monitor coagulopathy and liver profile. Transfuse to a hemoglobin of above 7. Prognosis remains extremely poor and guarded. Critical care time is 34 minutes. Time with Patient: Greater than 30
--- NOTE | 2020-02-25 14:26 | P.PN ---
Subjective Progress Note Date: 02/25/20 This is a 54-year-old gentleman, history of polysubstance abuse including alcohol abuse , falls with recent rib fractures, legally blind, osteoarthritis and multiple other medical issues presented to the ER with changes in mental status 2 days. Drug screen positive for tricyclics and benzos, serum alcohol less than 10. UA reported dark brown cloudy urine with occasional bacteria, hyaline casts, 2 WBCs, trace leukocytes, 4+ bilirubin, negative for nitrates. Ammonia level 91, T bili 14.9, currently 15.8 , elevated LFTs .Gallbladder ultrasound reporting abdominal ascites, abdominal x-ray nonacute, right foot x- ray reported no fracture, soft tissue swelling, EKG reported sinus tachycardia, troponin normal, BNP 910, echo reported normal LV function, EF 60-65% ,lactic acid 2.1 now down to 1.7, BUN 25, creatinine 0.8 chest x-ray reporting moderate pulmonary interstitial and airspace edema significantly worse than yesterday, pulmonary edema. ABGs noted. INR on admission 3.7, down to 2.2 Sepsis protocol, Received IV fluid resuscitation, IV antibiotics, cultures drawn. Developed respiratory failure, requiring intubation during the night. Currently on Sandostatin drip. 3 maroon stools during the night. Received 4 units of FFP and 2 units of packed RBCs to date. Hemoglobin currently 8.5. And had required pressor support with Levophed off since . Maintained on IV fluid resuscitation. Telemetry sinus rhythm. Potassium 3.2, magnesium 1.7. 02/24/2020 chest x-ray reporting persistent bilateral scattered airspace infiltrates, pleural effusion unchanged. Ventilator dependent, on FiO2 of 50 with PEEP increased to 12. Continues on lactulose with ammonia down to 80. T bili decreased to 11.3, LFTs improving. No further maroon stools. Small black stool this morning. Hemoglobin 8.6. Telemetry sinus rhythm to sinus tach. Sandostatin drip discontinued this morning. Last night patient asynchronous with vent, stacking breaths, Nimbex drip initiated. This morning Nimbex discontinued, changed to fentanyl drip. Requiring pressor support, Levophed resumed. Received vitamin K yesterday, INR 2.1. Marginal urine output, IV fluids decreased, and Lasix IV push added to med regime. Tube feedings ordered. Afebrile, WBC 14.7. Sputum culture pending, preliminary blood cultures negative at 48 hours. ABGs noted. 02/25/2020 yesterday Lasix and Aldactone initiated, creatinine mildly worsened up to 1.32. Ammonia increased up to 89, lactulose increased. No further maroon stools, hemoglobin increased to 9.4, platelets increased to 75. T bili trending down, 8.9, LFTs improving. Potassium 3.4. Chest x-ray reporting improving left lower lobe aeration. Right foot evaluated by orthopedic surgery, possible fluid collection, seroma with potential x-ray tomorrow. Tolerating tube feeds with minimal to no residuals, currently at 30 mls per hour with goal of 45. IV steroids added to med regimen with blood sugars increasing. Remains vent dependent with FiO2 at 50/+12 of PEEP. Continues on Levophed, fentanyl, diprovan drips. Afebrile, T-max 99.5, WBC 14.1. Objective - Vital Signs Vital signs: Vital Signs Temp 97.2 F L 02/25/20 08:00 Pulse 93 02/25/20 11:00 Resp 25 H 02/25/20 11:00 BP 101/61 02/25/20 11:00 Pulse Ox 94 L 02/25/20 11:00 Intake & Output 02/24/20 02/25/20 02/25/20 18:59 06:59 18:59 Intake Total 7304.046 4448.038 835.988 Output Total 493 670 575 Balance 8784.258 5078.038 260.988 Weight 87.2 kg 89 kg Intake: IV 1177.5 700 362 0.9 130 Normal Saline Pressure 12 Bag Octreotide 500 mcg In 37.5 Sodium Chloride 0.9% 250 ml @ 25 MCG/HR 12.5 mls/ hr IV .Q20H [facility]ED Rx#: [id number] Piperacillin-Tazobactam 3 200 100 100 .375 gm In Sodium Chloride 0.9% 100 ml @ 25 mls/hr IVPB Q8HR J[facility]ED Rx# :[id number] Potassium Chloride 20 meq 100 In Water For Injection 1 100ml.bag @ 50 mls/hr IVPB Q2H J[facility]ED Rx#: [id number] Sodium Chloride 0.9% 1, 710 600 250 000 ml @ 50 mls/hr IV . Q20H JARED Rx#:[id number] Intake, IV Titration 482.014 967.038 253.988 Amount Cisatracurium 200 mg In 48.521 Sodium Chloride 0.9% 180 ml @ 1 MCG/KG/MIN 4.812 mls/hr IV .Q24H J[facility]ED Rx#: [id number] Norepinephrine 4 mg In 226.691 417.800 53.988 Sodium Chloride 0.9% 250 ml @ 0.05 MCG/KG/MIN 15. 338 mls/hr IV .[id number] JARED Rx#:[id number] Potassium Chloride 20 meq 100 100 In Water For Injection 1 100ml.bag @ 50 mls/hr IVPB Q2H J[facility]ED Rx#: [id number] Propofol 1,000 mg In 206.802 358.155 100.000 Empty Bag 1 bag @ Titrate IV .Q0M J[facility]ED Rx#: [id number] fentaNYL (PF) 1,000 mcg 91.083 In Sodium Chloride 0.9% 80 ml @ 50 MCG/HR 5 mls/ hr IV .Q20H JARED Rx#: [id number] Oral 30 Tube Feeding 180 130 Other 30 90 Output: Urine 493 670 575 Other: Voiding Method Indwelling Catheter Indwelling Catheter Indwelling Catheter ABP, PAP, CO, CI - Last Documented Arterial Blood Pressure 116/58 - Exam VITAL SIGNS: As above GENERAL: Sitting up in bed, intubated, sedated HEENT: Conjunctivae normal. Positive icterus, jaundice, NG,OG tubes present. NECK: No JVD. No thyroid enlargement. No LNs CARDIOVASCULAR: S1, S2 regular. Systolic murmur RESPIRATION: Coarse Breath sounds diminished in the bases with scattered bilateral rhonchi and crackles ABDOMEN: Soft, distended, positive ascites, positive bowel sounds Extremities: Positive upper and lower extremity edema, no clubbing, no cyanosis. Right foot dorsal edema , significant ecchymosis -orthopedic evaluation in progress NERVOUS SYSTEM: Unable to assess, sedated and intubated. Skin: Warm and dry, no rash - Labs CBC & Chem 7: 02/25/20 04:30 02/25/20 04:30 Labs: Abnormal Lab Results - Last 24 Hours (Table) 02/25/20 02/25/20 02/25/20 Range/Units 00:00 04:30 04:30 WBC (3.8-10.6) k/uL RBC (4.30-5.90) m/uL Hgb (13.0-17.5) gm/dL Hct (39.0-53.0) % MCV (80.0-100.0) fL MCH (25.0-35.0) pg RDW (11.5-15.5) % Plt Count (150-450) k/uL Neutrophils # (1.3-7.7) k/uL Macrocytosis PT (9.0-12.0) sec INR (<1.2) ABG pO2 (83-108) mmHg ABG O2 Saturation (94-97) % Potassium 3.4 L (3.5-5.1) mmol/L Chloride 116 H (98-107) mmol/L Carbon Dioxide 19 L (22-30) mmol/L BUN 27 H (9-20) mg/dL Creatinine 1.32 H (0.66-1.25) mg/dL Glucose 121 H (74-99) mg/dL POC Glucose (mg/dL) 130 H (75-99) mg/dL Calcium 7.5 L (8.4-10.2) mg/dL Total Bilirubin 8.9 H (0.2-1.3) mg/dL AST 164 H (17-59) U/L Ammonia 89 H (<30) umol/L Albumin 2.3 L (3.5-5.0) g/dL 02/25/20 02/25/20 02/25/20 Range/Units 04:30 04:30 07:05 WBC 14.1 H (3.8-10.6) k/uL RBC 2.49 L (4.30-5.90) m/uL Hgb 9.4 L (13.0-17.5) gm/dL Hct 26.7 L (39.0-53.0) % MCV 107.0 H (80.0-100.0) fL MCH 37.7 H (25.0-35.0) pg RDW 23.8 H (11.5-15.5) % Plt Count 75 L (150-450) k/uL Neutrophils # 9.8 H (1.3-7.7) k/uL Macrocytosis Marked A PT 17.1 H (9.0-12.0) sec INR 1.7 H (<1.2) ABG pO2 65 L (83-108) mmHg ABG O2 Saturation 92.2 L (94-97) % Potassium (3.5-5.1) mmol/L Chloride (98-107) mmol/L Carbon Dioxide (22-30) mmol/L BUN (9-20) mg/dL Creatinine (0.66-1.25) mg/dL Glucose (74-99) mg/dL POC Glucose (mg/dL) (75-99) mg/dL Calcium (8.4-10.2) mg/dL Total Bilirubin (0.2-1.3) mg/dL AST (17-59) U/L Ammonia (<30) umol/L Albumin (3.5-5.0) g/dL 02/25/20 Range/Units 12:16 WBC (3.8-10.6) k/uL RBC (4.30-5.90) m/uL Hgb (13.0-17.5) gm/dL Hct (39.0-53.0) % MCV (80.0-100.0) fL MCH (25.0-35.0) pg RDW (11.5-15.5) % Plt Count (150-450) k/uL Neutrophils # (1.3-7.7) k/uL Macrocytosis PT (9.0-12.0) sec INR (<1.2) ABG pO2 (83-108) mmHg ABG O2 Saturation (94-97) % Potassium (3.5-5.1) mmol/L Chloride (98-107) mmol/L Carbon Dioxide (22-30) mmol/L BUN (9-20) mg/dL Creatinine (0.66-1.25) mg/dL Glucose (74-99) mg/dL POC Glucose (mg/dL) 165 H (75-99) mg/dL Calcium (8.4-10.2) mg/dL Total Bilirubin (0.2-1.3) mg/dL AST (17-59) U/L Ammonia (<30) umol/L Albumin (3.5-5.0) g/dL Microbiology - Last 24 Hours (Table) 02/22/20 14:13 Blood Culture - Preliminary Blood No Growth after 48 hours 02/23/20 03:46 Gram Stain - Preliminary Sputum Sputum Culture - Preliminary Assessment and Plan Assessment: Sepsis secondary to aspiration bilateral pneumonia, possibly abdominal source, Acute hypoxic respiratory failure, related to the above, ventilator dependent Septic and hypovolemic shock multifactorial, secondary to bilateral aspiration pneumonia, alcoholic liver disease Hypotension, secondary to the above, pressor support dependent secondary to sepsis Acute renal failure multifactorial, secondary to all the above, diuretics Acute GI bleed, possible esophageal varices in a patient with significant alcohol dependence, on Sandostatin Acute blood loss anemia, status post multiple transfusions of both FFP, packed RBCs Acute Hepatic encephalopathy Alcoholic liver disease with ascites Hyperammonia Recent posterior lateral rib fractures of 9, 10 and 11 status post fall History of pericarditis Chronic back pain Polysubstance abuse, per record review; patient reports alcohol, marijuana use currently. History of nicotine dependence COPD, emphysema Legally blind Obesity, BMI 30.7 Osteoarthritis Venous insufficiency Anxiety, depression, history of, currently controlled Hyperglycemia, steroid-induced Moderate protein calorie malnutrition Plan: Continue on current medication regime ,monitoring and symptomatic treatment. ICU management/Vent support as per case reviewer. Lactulose increased,empiric antibiotics .cultures in progress .Close monitoring of coags. orthopedic surgery evaluation of right foot in progress.Prognosis guarded given multiple complex medical issues. The impression and plan of care has been dictated as directed. : I performed a history and examination of this patient, discussed the same with the dictator. I agree with the dictator's note ,documented as a scribe. Any additional findings or plans will be noted.
[2020-02-25 16:50] LABS: Glucose,Whole Blood 178 mg/dL (75-99)
[2020-02-25] MEDS ORDERED: POTASSIUM BICARBONATE/CIT AC 20 MEQ TABLET.EFF NG-TUBE SCH ×2 (18:00→22:00)
--- NOTE | 2020-02-25 19:28 | P.CNOR ---
History of Present Illness - HPI Consult date: 02/25/20 Consult reason: other History of present illness: Patient is a 54 year old male seen at bedside this morning in ICU regarding swelling at the foot. PMH is obtained through nurse and documentation as he is intubated and unresponsive. He has a history of polysubstance abuse including alcohol abuse , falls with recent rib fractures, legally blind, osteoarthritis and multiple other medical issues. He presented to the ER with changes in mental status 2 days. He was admitted 02/22/20 for altered mental status, suspected aspiration pneumonia and sepsis. No trauma to right foot was reported. However, he had swelling at the right foot and xrays were obtained. Xrays of the right foot were negative for fracture. He has continued swelling and bruising at the dorsum of the right foot. 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 Other Hx: Unsteady gait/falls, ETOH abuse with withdrawal symptoms in the past pt states-tremors, bilateral leg pain/numbness, chronic renal disease stage I, pericarditis, bilateral macular degeneration/legally blind, chronic back pain, RLS, bilateral carpal tunnel syndrome, past infected sebaceous cyst on back History of Any Multi-Drug Resistant Organisms: None Reported Past Surgical History: Orthopedic Surgery Additional Past Surgical History / Comment(s): Right hand surgery d/t injury Past Anesthesia/Blood Transfusion Reactions: No Reported Reaction Past Psychological History: Anxiety, Depression Additional Psychological History / Comment(s): Pt resides with his laura. He has been using her walker on occasion. 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 Smoking Status: Light tobacco smoker Past Alcohol Use History: Abuse, Daily Additional Past Alcohol Use History / Comment(s): Pt started smoking in 1981 and states that he has recently cut down to a pack lasting 4-5 weeks. Pt states he has hx of alcohol abuse-8 beers a day but has not drank in a few weeks. Past Drug Use History: None Reported Additional Drug Use History / Comment(s): Pt smoked marijuana as a teen. - Past Family History Father Family Medical History: Cancer Additional Family Medical History / Comment(s): Father of esophageal cancer. Mother Family Medical History: No Reported History Additional Family Medical History / Comment(s): Mopther is healthy Medications and Allergies Home Medications Medication Instructions Recorded Confirmed Type Cetirizine HCl [Zyrtec] 10 mg PO DAILY 10/01/19 02/22/20 History Omeprazole 20 mg PO DAILY 10/01/19 02/22/20 History Folic Acid 1 mg PO DAILY #30 tablet 10/03/19 02/22/20 Rx Multivitamins, Thera [Multivitamin 1 tab PO DAILY #30 tablet 10/03/19 02/22/20 Rx (formulary)] Thiamine [Vitamin B-1] 100 mg PO DAILY #30 tab 10/03/19 02/22/20 Rx Albuterol Inhaler [Ventolin Hfa 1 - 2 puff INHALATION RT-Q4H PRN 02/22/20 02/22/20 History Inhaler] Allergies Allergy/AdvReac Type Severity Reaction Status Date / Time No Known Allergies Allergy Verified 02/22/20 14:27 Physical Examination Inspection of the right foot and ankle shows no bony deformity. There is echymosis diffusely across the dorsum of the foot and toes. There is an area of swelling/ fluid collection at the dorsum of the distal 3, 4, 5 metatatarsals. There are no wounds. There is no erythema. It is not hot to touch. The fluid is compressible. No crepitance. Free passive ROM of the foot, ankle and toes. There is adequate perfusion at the foot and toes with 2+ DP pulse and less than 2 sec cap refill in all toes. Motor and sensation is not able to be assessed. Results Xrays of the right foot from 02/21 show no evidence of fracture. there is soft tissue swelling. No gas. - Labs Labs: Abnormal Lab Results - Last 24 Hours (Table) 02/25/20 02/25/20 02/25/20 Range/Units 00:00 04:30 04:30 WBC (3.8-10.6) k/uL RBC (4.30-5.90) m/uL Hgb (13.0-17.5) gm/dL Hct (39.0-53.0) % MCV (80.0-100.0) fL MCH (25.0-35.0) pg RDW (11.5-15.5) % Plt Count (150-450) k/uL Neutrophils # (1.3-7.7) k/uL Macrocytosis PT (9.0-12.0) sec INR (<1.2) ABG pO2 (83-108) mmHg ABG O2 Saturation (94-97) % Potassium 3.4 L (3.5-5.1) mmol/L Chloride 116 H (98-107) mmol/L Carbon Dioxide 19 L (22-30) mmol/L BUN 27 H (9-20) mg/dL Creatinine 1.32 H (0.66-1.25) mg/dL Glucose 121 H (74-99) mg/dL POC Glucose (mg/dL) 130 H (75-99) mg/dL Calcium 7.5 L (8.4-10.2) mg/dL Total Bilirubin 8.9 H (0.2-1.3) mg/dL AST 164 H (17-59) U/L Ammonia 89 H (<30) umol/L Albumin 2.3 L (3.5-5.0) g/dL 02/25/20 02/25/20 02/25/20 Range/Units 04:30 04:30 07:05 WBC 14.1 H (3.8-10.6) k/uL RBC 2.49 L (4.30-5.90) m/uL Hgb 9.4 L (13.0-17.5) gm/dL Hct 26.7 L (39.0-53.0) % MCV 107.0 H (80.0-100.0) fL MCH 37.7 H (25.0-35.0) pg RDW 23.8 H (11.5-15.5) % Plt Count 75 L (150-450) k/uL Neutrophils # 9.8 H (1.3-7.7) k/uL Macrocytosis Marked A PT 17.1 H (9.0-12.0) sec INR 1.7 H (<1.2) ABG pO2 65 L (83-108) mmHg ABG O2 Saturation 92.2 L (94-97) % Potassium (3.5-5.1) mmol/L Chloride (98-107) mmol/L Carbon Dioxide (22-30) mmol/L BUN (9-20) mg/dL Creatinine (0.66-1.25) mg/dL Glucose (74-99) mg/dL POC Glucose (mg/dL) (75-99) mg/dL Calcium (8.4-10.2) mg/dL Total Bilirubin (0.2-1.3) mg/dL AST (17-59) U/L Ammonia (<30) umol/L Albumin (3.5-5.0) g/dL 02/25/20 Range/Units 12:16 WBC (3.8-10.6) k/uL RBC (4.30-5.90) m/uL Hgb (13.0-17.5) gm/dL Hct (39.0-53.0) % MCV (80.0-100.0) fL MCH (25.0-35.0) pg RDW (11.5-15.5) % Plt Count (150-450) k/uL Neutrophils # (1.3-7.7) k/uL Macrocytosis PT (9.0-12.0) sec INR (<1.2) ABG pO2 (83-108) mmHg ABG O2 Saturation (94-97) % Potassium (3.5-5.1) mmol/L Chloride (98-107) mmol/L Carbon Dioxide (22-30) mmol/L BUN (9-20) mg/dL Creatinine (0.66-1.25) mg/dL Glucose (74-99) mg/dL POC Glucose (mg/dL) 165 H (75-99) mg/dL Calcium (8.4-10.2) mg/dL Total Bilirubin (0.2-1.3) mg/dL AST (17-59) U/L Ammonia (<30) umol/L Albumin (3.5-5.0) g/dL Microbiology - Last 24 Hours (Table) 02/22/20 14:13 Blood Culture - Preliminary Blood No Growth after 48 hours 02/23/20 03:46 Gram Stain - Preliminary Sputum Sputum Culture - Preliminary H & H 0602/22/20 02/22/20 Range/Units 14:13 19:19 22:50 Hgb 8.3 L 8.1 L 7.0 L (13.0-17.5) gm/dL Hct 24.3 L 23.8 L 21.6 L (39.0-53.0) % 02/23/20 02/23/20 02/23/20 Range/Units 06:09 11:04 15:43 Hgb 9.2 L D 8.5 L 8.6 L (13.0-17.5) gm/dL Hct 27.2 L 25.7 L 27.0 L (39.0-53.0) % 02/24/20 02/25/20 Range/Units 05:05 04:30 Hgb 8.6 L 9.4 L (13.0-17.5) gm/dL Hct 26.0 L 26.7 L (39.0-53.0) % Coagulation 02/22/20 02/23/20 02/23/20 Range/Units 14:13 06:09 11:04 INR 3.7 H 1.9 H 2.2 H (<1.2) 02/24/20 02/25/20 Range/Units 05:30 04:30 INR 2.1 H 1.7 H (<1.2) Result Diagrams: 02/25/20 04:30 02/25/20 16:48 - Diagnostic results Ankle/Foot x-ray: report reviewed, image reviewed Assessment and Plan (1) Foot swelling Narrative/Plan: Patient has been reviewed with Dr. Carrasquillo. There are no plans for immediate surgical intervention. Recommend continued elevation and monitoring the focal area of swelling. Will continue to follow and make further recommendations as appropriate. Will consider further testing including repeat xrays, US or other based on his clinical course. Thank you Current Visit: Yes Status: Acute Priority: Medium Code(s): M79.89 - OTHER SPECIFIED SOFT TISSUE DISORDERS SNOMED Code(s): 262204997 Time with Patient: Less than 30
--- NOTE | 2020-02-25 22:16 | P.PN ---
Subjective Progress Note Date: 02/25/20 Principal diagnosis: Alcoholic hepatitis, alcoholic cirrhosis of the liver with ascites, hepatic encephalopathy, elevated liver enzymes Patient is seen in the intensive care unit where he is currently intubated and sedated. Patient is not having appropriate bowel movements with lactulose therapy with plan to increase today. No acute events. Objective - Vital Signs Vital signs: Vital Signs Temp 97.2 F L 02/25/20 08:00 Pulse 86 02/25/20 13:38 Resp 25 H 02/25/20 11:00 BP 101/61 02/25/20 11:00 Pulse Ox 94 L 02/25/20 11:00 Intake & Output 02/24/20 02/25/20 02/25/20 18:59 06:59 18:59 Intake Total 2968.554 9794.038 835.988 Output Total 493 670 575 Balance 4305.833 8492.038 260.988 Weight 87.2 kg 89 kg Intake: IV 1177.5 700 362 0.9 130 Normal Saline Pressure 12 Bag Octreotide 500 mcg In 37.5 Sodium Chloride 0.9% 250 ml @ 25 MCG/HR 12.5 mls/ hr IV .Q20H JARED Rx#: [id number] Piperacillin-Tazobactam 3 200 100 100 .375 gm In Sodium Chloride 0.9% 100 ml @ 25 mls/hr IVPB Q8HR JARED Rx# :[id number] Potassium Chloride 20 meq 100 In Water For Injection 1 100ml.bag @ 50 mls/hr IVPB Q2H JARED Rx#: [id number] Sodium Chloride 0.9% 1, 710 600 250 000 ml @ 50 mls/hr IV . Q20H JARED Rx#:[id number] Intake, IV Titration 482.014 967.038 253.988 Amount Cisatracurium 200 mg In 48.521 Sodium Chloride 0.9% 180 ml @ 1 MCG/KG/MIN 4.812 mls/hr IV .Q24H JARED Rx#: [id number] Norepinephrine 4 mg In 226.691 417.800 53.988 Sodium Chloride 0.9% 250 ml @ 0.05 MCG/KG/MIN 15. 338 mls/hr IV .[id number] JARED Rx#:[id number] Potassium Chloride 20 meq 100 100 In Water For Injection 1 100ml.bag @ 50 mls/hr IVPB Q2H JARED Rx#: [id number] Propofol 1,000 mg In 206.802 358.155 100.000 Empty Bag 1 bag @ Titrate IV .Q0M JARED Rx#: [id number] fentaNYL (PF) 1,000 mcg 91.083 In Sodium Chloride 0.9% 80 ml @ 50 MCG/HR 5 mls/ hr IV .Q20H JARED Rx#: [id number] Oral 30 Tube Feeding 180 130 Other 30 90 Output: Urine 493 670 575 Other: Voiding Method Indwelling Catheter Indwelling Catheter Indwelling Catheter ABP, PAP, CO, CI - Last Documented Arterial Blood Pressure 116/58 - Exam On physical examination, patient appears comfortable in no apparent distress. HEAD: Normocephalic, atraumatic. EYES: Scleral icterus. No conjunctival injection. MOUTH: No lesions, tongue midline, endotracheal tube in place. NECK: Trachea midline, no gross abnormalities. CHEST: Coarse respiratory noises in all lung soni on mechanical ventilation. ABDOMEN: Soft, obese. Bowel sounds are positive. No organomegaly. No guarding or rigidity. EXTREMITIES: Bilateral pedal edema. SKIN: No rashes, jaundice. NEUROLOGIC: Intubated and sedated. - Labs CBC & Chem 7: 02/25/20 04:30 02/25/20 20:15 Labs: Abnormal Lab Results - Last 24 Hours (Table) 02/25/20 02/25/20 02/25/20 Range/Units 00:00 04:30 04:30 WBC (3.8-10.6) k/uL RBC (4.30-5.90) m/uL Hgb (13.0-17.5) gm/dL Hct (39.0-53.0) % MCV (80.0-100.0) fL MCH (25.0-35.0) pg RDW (11.5-15.5) % Plt Count (150-450) k/uL Neutrophils # (1.3-7.7) k/uL Macrocytosis PT (9.0-12.0) sec INR (<1.2) ABG pO2 (83-108) mmHg ABG O2 Saturation (94-97) % Potassium 3.4 L (3.5-5.1) mmol/L Chloride 116 H (98-107) mmol/L Carbon Dioxide 19 L (22-30) mmol/L BUN 27 H (9-20) mg/dL Creatinine 1.32 H (0.66-1.25) mg/dL Glucose 121 H (74-99) mg/dL POC Glucose (mg/dL) 130 H (75-99) mg/dL Calcium 7.5 L (8.4-10.2) mg/dL Total Bilirubin 8.9 H (0.2-1.3) mg/dL AST 164 H (17-59) U/L Ammonia 89 H (<30) umol/L Albumin 2.3 L (3.5-5.0) g/dL 02/25/20 02/25/20 02/25/20 Range/Units 04:30 04:30 07:05 WBC 14.1 H (3.8-10.6) k/uL RBC 2.49 L (4.30-5.90) m/uL Hgb 9.4 L (13.0-17.5) gm/dL Hct 26.7 L (39.0-53.0) % MCV 107.0 H (80.0-100.0) fL MCH 37.7 H (25.0-35.0) pg RDW 23.8 H (11.5-15.5) % Plt Count 75 L (150-450) k/uL Neutrophils # 9.8 H (1.3-7.7) k/uL Macrocytosis Marked A PT 17.1 H (9.0-12.0) sec INR 1.7 H (<1.2) ABG pO2 65 L (83-108) mmHg ABG O2 Saturation 92.2 L (94-97) % Potassium (3.5-5.1) mmol/L Chloride (98-107) mmol/L Carbon Dioxide (22-30) mmol/L BUN (9-20) mg/dL Creatinine (0.66-1.25) mg/dL Glucose (74-99) mg/dL POC Glucose (mg/dL) (75-99) mg/dL Calcium (8.4-10.2) mg/dL Total Bilirubin (0.2-1.3) mg/dL AST (17-59) U/L Ammonia (<30) umol/L Albumin (3.5-5.0) g/dL 02/25/20 Range/Units 12:16 WBC (3.8-10.6) k/uL RBC (4.30-5.90) m/uL Hgb (13.0-17.5) gm/dL Hct (39.0-53.0) % MCV (80.0-100.0) fL MCH (25.0-35.0) pg RDW (11.5-15.5) % Plt Count (150-450) k/uL Neutrophils # (1.3-7.7) k/uL Macrocytosis PT (9.0-12.0) sec INR (<1.2) ABG pO2 (83-108) mmHg ABG O2 Saturation (94-97) % Potassium (3.5-5.1) mmol/L Chloride (98-107) mmol/L Carbon Dioxide (22-30) mmol/L BUN (9-20) mg/dL Creatinine (0.66-1.25) mg/dL Glucose (74-99) mg/dL POC Glucose (mg/dL) 165 H (75-99) mg/dL Calcium (8.4-10.2) mg/dL Total Bilirubin (0.2-1.3) mg/dL AST (17-59) U/L Ammonia (<30) umol/L Albumin (3.5-5.0) g/dL Microbiology - Last 24 Hours (Table) 02/22/20 14:13 Blood Culture - Preliminary Blood No Growth after 48 hours 02/23/20 03:46 Gram Stain - Preliminary Sputum Sputum Culture - Preliminary Assessment and Plan (1) Acute alcoholic hepatitis Narrative/Plan: 54-year-old male with known history of alcohol abuse presenting to the hospital with altered mental status. Likely multifactorial given suspected underlying de compensated cirrhosis, acute alcoholic hepatitis and concern for aspiration pneumonia and sepsis. Currently receiving treatment in the ICU, he remains on broad-spectrum antibiotic therapy and mechanically ventilated. Current Visit: Yes Status: Acute Code(s): K70.10 - ALCOHOLIC HEPATITIS WITHOUT ASCITES SNOMED Code(s): 9906155 (2) Liver cirrhosis Current Visit: Yes Status: Acute Code(s): K74.60 - UNSPECIFIED CIRRHOSIS OF LIVER SNOMED Code(s): 79621332 (3) Ascites Current Visit: Yes Status: Acute Code(s): R18.8 - OTHER ASCITES SNOMED Code(s): 526613450 (4) Hepatic encephalopathy Current Visit: Yes Status: Acute Code(s): K72.90 - HEPATIC FAILURE, UNSPECIFIED WITHOUT COMA SNOMED Code(s): 82968343 Plan: Supportive care Nothing by mouth, okay for tube feeds as tolerated Continue management per [employer] operator service, patient currently intubated and sedated Continue respiratory antibiotic therapy Continue lactulose which was increased today to 4 times a day Xifaxan twice a day ordered paracentesis when patient is medically stable Alcohol abstinence Thank you for allowing us to participate in the care of the patient we will continue to follow
[2020-02-26 00:27] LABS: Glucose,Whole Blood 183 mg/dL (75-99)
[2020-02-26] MEDS: INSULIN ASPART (NovoLOG) 100 UNIT/ML VIAL SQ SCH ×5 (00:34→23:45)
[2020-02-26] MEDS: PIPERACILLIN-TAZOBACTAM 3.375 GM in SODIUM CHLORIDE 0.9% 100 ML IVPB SCH ×4 (00:34→23:46)
[2020-02-26] MEDS: methylPREDNISolone SOD SUCCI 40 MG/ML 1 ML VIAL IV SCH ×4 (00:34→23:47)
[2020-02-26] MEDS: ARTIFICIAL TEARS OINTMENT 3.5 GM TUBE BOTH EYES SCH ×3 (00:35→20:45)
[2020-02-26] MEDS: ARTIFICIAL TEARS-HYPROMELLOSE DROPS 15 ML BTL BOTH EYES SCH ×3 (00:35→20:45)
[2020-02-26 05:02] LABS: Anisocytosis Moderate; Basophils # (A) 0.1 k/uL (0-0.2); Basophils % (A) 1 %; Eosinophils % (A) 0 %; HCT 26.2 % (39.0-53.0); HGB 8.5 gm/dL (13.0-17.5); Hypochromasia Slight; Lymphocytes # (A) 1.3 k/uL (1.0-4.8); Lymphocytes % (A) 12 %; MCH 34.6 pg (25.0-35.0); MCHC 32.3 g/dL (31.0-37.0); MCV 107.3 fL (80.0-100.0); Mean Platelet Volume 9.7; Monocytes # (A) 0.5 k/uL (0-1.0); Monocytes % (A) 5 %; Neutrophils # (A) 8.9 k/uL (1.3-7.7); Neutrophils % (A) 81 %; RBC 2.44 m/uL (4.30-5.90); RDW 23.3 % (11.5-15.5)
[2020-02-26 05:03] LABS: Platelet Count 75 k/uL (150-450)
[2020-02-26 05:04] LABS: INR 1.7 (<1.2); Macrocytosis Marked; Prothrombin Time 16.5 sec (9.0-12.0)
[2020-02-26 05:28] LABS: Calcium 7.7 mg/dL (8.4-10.2); Potassium 3.7 mmol/L (3.5-5.1)
[2020-02-26] MEDS: SODIUM CHLORIDE 0.9% 1,000 ML IV SCH (05:46)
[2020-02-26] MEDS ORDERED: Potassium Replacement Protocol 1 EACH MISC MISCELLANE PRN (07:08)
--- NOTE | 2020-02-26 07:20 | XR ---
EXAMINATION TYPE: XR chest 1V portable DATE OF EXAM: 02/26/2020 Comparison: 02/25/2020 Clinical History: 54-year-old male Tube placement Findings: ETT tube tip at the level of the medial clavicular heads. NG tube courses below the diaphragm. Low bubba ng volumes are similar. Heart upper limits of normal in size. Diffuse interstitial densities persist more focal patchy left infrahilar and left midlung opacities. Slight improved aeration at the right m id to lower lung. Impression: Interstitial densities persist. Correlate for pulmonary vascular congestion. Aeration slightly improv ed on the right. Persistent patchy areas on the left could represent atelectasis, infiltrate, or more confluent areas of pulmonary edema.
[2020-02-26] MEDS ORDERED: POTASSIUM BICARBONATE/CIT AC 20 MEQ TABLET.EFF NG-TUBE SCH (08:00)
[2020-02-26 08:45] LABS: ABG Base Excess -2.9 mmol/L; ABG HCO3 22 mmol/L (21-25); ABG Oxygen Saturation 93.1 % (94-97); ABG PCO2 38 mmHg (35-45); ABG PH 7.38 (7.35-7.45); ABG PO2 68 mmHg (83-108); ABG TCO2 23 mmol/L (19-24); Allen Test Performed? Yes
[2020-02-26] MEDS: PANTOPRAZOLE 40 MG/10 ML VIAL IVP SCH ×2 (08:59→21:11)
[2020-02-26] MEDS: SPIRONOLACTONE 25 MG TAB PO SCH ×3 (08:59→21:11)
[2020-02-26] MEDS: IPRATROPIUM-ALBUTEROL 3 ML NEB INHALATION SCH ×4 (09:00→19:36)
[2020-02-26] MEDS: FUROSEMIDE 10 MG/ML 4 ML VIAL IV SCH ×3 (09:00→23:47)
[2020-02-26] MEDS: CHLORHEXIDINE GLUCONATE 15 ML CUP MUCOUS MEM SCH ×2 (09:00→21:11)
[2020-02-26] MEDS: PROPOFOL 1,000 MG in EMPTY BAG 1 BAG IV SCH ×3 (09:01→23:46)
[2020-02-26] MEDS: RIFAXIMIN 550 MG TABLET PO SCH ×2 (09:57→21:11)
[2020-02-26] MEDS: LACTULOSE 20 GM/30 ML CUP PO SCH ×4 (10:31→21:14)
--- NOTE | 2020-02-26 11:57 | P.PN ---
Subjective Progress Note Date: 02/26/20 Principal diagnosis: Right foot swelling/bruising Seen at bedside this am. We are following his right foot swelling and bruising. No fractures were evident on xrays and no signs of infection or abcess at the foot. No new reported associated findings regarding his foot. He remains intubated. Objective - Vital Signs Vital signs: Vital Signs Temp 98.1 F 02/26/20 04:00 Pulse 89 02/26/20 11:00 Resp 42 H 02/26/20 11:00 BP 114/58 02/26/20 07:00 Pulse Ox 98 02/26/20 11:00 Intake & Output 02/25/20 02/26/20 02/26/20 18:59 06:59 18:59 Intake Total 2095.945 1416 749.171 Output Total 1115 710 395 Balance 980.945 706 354.171 Weight 91 kg Intake: IV 833 736 365 Normal Saline Pressure 33 36 15 Bag Piperacillin-Tazobactam 3 200 100 100 .375 gm In Sodium Chloride 0.9% 100 ml @ 25 mls/hr IVPB Q8HR [facility] Rx# :[id number] Sodium Chloride 0.9% 1, 600 600 250 000 ml @ 50 mls/hr IV . Q20H [facility] Rx#:[id number] Intake, IV Titration 632.945 200 164.171 Amount Norepinephrine 4 mg In 223.317 30.683 Sodium Chloride 0.9% 250 ml @ 0.05 MCG/KG/MIN 15. 338 mls/hr IV .[id number] [facility] Rx#:[id number] Potassium Chloride 20 meq 100 In Water For Injection 1 100ml.bag @ 50 mls/hr IVPB Q2H [facility] Rx#: [id number] Propofol 1,000 mg In 268.211 200 33.488 Empty Bag 1 bag @ Titrate IV .Q0M [facility] Rx#: [id number] fentaNYL (PF) 1,000 mcg 41.417 100 In Sodium Chloride 0.9% 80 ml @ 50 MCG/HR 5 mls/ hr IV .Q20H [facility] Rx#: [id number] Tube Feeding 360 480 160 Other 270 60 Output: Urine 1115 710 395 Other: Voiding Method Indwelling Catheter Indwelling Catheter Indwelling Catheter ABP, PAP, CO, CI - Last Documented Arterial Blood Pressure 121/59 - Exam There is resolving diffuse echymosis at the dorsum of distal right foot. There is swelling as well at the dorsum of the foot distally that appears stable or improved. There is no focal erythema. It is not hot to touch. No deformity. Vascular status remains intact - Constitutional General appearance: Present: no acute distress - Labs CBC & Chem 7: 02/26/20 04:45 02/26/20 04:45 Labs: Abnormal Lab Results - Last 24 Hours (Table) 02/25/20 02/25/20 02/26/20 Range/Units 12:16 16:49 00:25 WBC (3.8-10.6) k/uL RBC (4.30-5.90) m/uL Hgb (13.0-17.5) gm/dL Hct (39.0-53.0) % MCV (80.0-100.0) fL RDW (11.5-15.5) % Plt Count (150-450) k/uL Neutrophils # (1.3-7.7) k/uL Macrocytosis PT (9.0-12.0) sec INR (<1.2) ABG pO2 (83-108) mmHg ABG O2 Saturation (94-97) % Chloride (98-107) mmol/L Carbon Dioxide (22-30) mmol/L BUN (9-20) mg/dL Creatinine (0.66-1.25) mg/dL Glucose (74-99) mg/dL POC Glucose (mg/dL) 165 H 178 H 183 H (75-99) mg/dL Calcium (8.4-10.2) mg/dL Ammonia (<30) umol/L 02/26/20 02/26/20 02/26/20 Range/Units 04:45 04:45 04:45 WBC 11.0 H (3.8-10.6) k/uL RBC 2.44 L (4.30-5.90) m/uL Hgb 8.5 L (13.0-17.5) gm/dL Hct 26.2 L (39.0-53.0) % MCV 107.3 H (80.0-100.0) fL RDW 23.3 H (11.5-15.5) % Plt Count 75 L (150-450) k/uL Neutrophils # 8.9 H (1.3-7.7) k/uL Macrocytosis Marked A PT 16.5 H (9.0-12.0) sec INR 1.7 H (<1.2) ABG pO2 (83-108) mmHg ABG O2 Saturation (94-97) % Chloride (98-107) mmol/L Carbon Dioxide (22-30) mmol/L BUN (9-20) mg/dL Creatinine (0.66-1.25) mg/dL Glucose (74-99) mg/dL POC Glucose (mg/dL) (75-99) mg/dL Calcium (8.4-10.2) mg/dL Ammonia 115 H (<30) umol/L 02/26/20 02/26/20 Range/Units 04:45 08:43 WBC (3.8-10.6) k/uL RBC (4.30-5.90) m/uL Hgb (13.0-17.5) gm/dL Hct (39.0-53.0) % MCV (80.0-100.0) fL RDW (11.5-15.5) % Plt Count (150-450) k/uL Neutrophils # (1.3-7.7) k/uL Macrocytosis PT (9.0-12.0) sec INR (<1.2) ABG pO2 68 L (83-108) mmHg ABG O2 Saturation 93.1 L (94-97) % Chloride 118 H (98-107) mmol/L Carbon Dioxide 21 L (22-30) mmol/L BUN 33 H (9-20) mg/dL Creatinine 1.40 H (0.66-1.25) mg/dL Glucose 164 H (74-99) mg/dL POC Glucose (mg/dL) (75-99) mg/dL Calcium 7.7 L (8.4-10.2) mg/dL Ammonia (<30) umol/L Microbiology - Last 24 Hours (Table) 02/22/20 14:13 Blood Culture - Preliminary Blood No Growth after 72 hours 02/23/20 03:46 Gram Stain - Final Sputum Sputum Culture - Final Assessment and Plan (1) Foot swelling Narrative/Plan: Patient has been reviewed with Dr. Carrasquillo. There continues to be no plans for immediate surgical intervention. Recommend continued elevation and monitoring t he right foot. Will continue to follow and make further recommendations as appropriate. Will consider further testing including repeat xrays, US or other based on his clinical course. Thank you Current Visit: Yes Status: Acute Priority: Medium Code(s): M79.89 - OTHER SPECIFIED SOFT TISSUE DISORDERS SNOMED Code(s): 728685313 Time with Patient: Less than 30
--- NOTE | 2020-02-26 13:32 | P.PN ---
Subjective Progress Note Date: 02/26/20 Principal diagnosis: Acute hypoxic respiratory failure secondary to aspiration pneumonia, and acute sepsis. This is a 54-year-old white male, history of alcohol abuse, patient was brought into the ER with change in mental status according to EMS. Patient could not give any history, he was a very poor historian upon arrival to the ER. Patient is supposedly a daily drinker, however from my review of the chart, I saw this patient back on 11/11/19, patient presented back then with multiple posterior lateral rib fractures on the right. Apparently he fell in his bathroom, and landed on the side of the top sustaining multiple rib fractures. Patient sustained rib fractures of 910 and 11 ribs. Patient is also known to have history of severe emphysema/COPD. He is legally blind. He has history of pericarditis, anxiety, and history of degenerative joint disease. Patient was discharged home on 11/12/19. Drug screen in the ER was positive for tricyclic antidepressants and positive for benzodiazepines. Rest of the drug screen was basically negative. ABG in the ER showed a pO2 of 63 pCO2 of 29 pH of 7.49. Patient was also noted to have elevated INR of 3.7. Low hemoglobin of 7.0 although his baseline hemoglobin from 2 months ago was 15.1. Ammonia level was 91. Total bilirubin was 14.9, and his liver enzymes were a bit elevated. Normal amylase and lipase were noted. Gallbladder ultrasound showed abdominal ascites. Chest x-ray showed bilateral diffuse infiltrates. Patient was presumed septic upon presentation, received fluid boluses of 2500 ML's. Patient was found to have hepatic encephalopathy liver failure, bilateral pneumonia, GI hemorrhage and sepsis. Early this morning, patient was intubated, placed on mechanical ventilation, and he was aware of the patient since admission. Presently the patient is on assist control rate of 28 tidal volume is 500 FiO2 is 100% PEEP of 5. ABG showed a pO2 of 170 pCO2 of 31 pH of 7.46. Hence I cut down the FiO2 to 50%, increased the PEEP to 8, cut down the tidal volume to 450, and decrease the respiratory rate to 26. Patient is on Sandostatin for his GI bleeding, and he is yet to be seen by gastroenterology on consultation is also on Protonix. He is on lactulose for his elevated ammonia level. And he is empirically on Zosyn for presumptive aspiration pneumonia. Echocardiogram showed evidence of good LV function. And mild valvular heart disease. BNP level was borderline elevated at 910 Patient was reevaluated today on 02/24/20, remains on mechanical ventilation. He is presently on assist control rate of 26 tidal volume is 450 FiO2 of 60% and PEEP of 8. However I increased his PEEP to 12 and cut down his FiO2 to 50%. At night the patient developed worsening agitation, and Stacking his breaths, was not synchronous with mechanical ventilation, hence had to place the patient on Nimbex. Today I plan to discontinue Nimbex and place him on fentanyl 25 g per hour. Patient will be started on tube feeding, and I cut down his IV fluid to 50 MLS per hour. Remains on propofol at 60 mcg/kg/m, Nimbex which will be discontinued, but creatinine which was discontinued this morning, and no repinephrine at 0.06 mcg/kg/m. Enteral feeding to be started today by relocation counselor. Patient remains on antibiotics, remains on lactulose for his elevated ammonia level which is 80 today. And he remains on Protonix. Chest x- ray showed more consolidation noted bilaterally in both lungs more so in the left lung. Bilateraldisease is noted consistent with aspiration pneumonia. Sputum cultures and blood cultures so far remain on diagnostic. ABG today showed a pO2 of 67 pCO2 of 39 pH of 7.33. WBC count is 14.7 hemoglobin is 8.6 platelets are 66,000 and INR is 2.1. Electrolytes are basically normal renal profile showed beer of 25 creatinine 0.94. Patient was reevaluated today on 02/25/20, remains in the intensive care unit, remains on mechanical ventilation. His ventilator settings are assist control rate of 26, tidal volume is 450 FiO2 is 50% and PEEP is at 12. ABG showed a pO2 of 65 pCO2 of 37 pH of 7.36, hence no change was made in the ventilator settings. Patient remains on norepinephrine at 0.09 mcg/kg/m, propofol at 45 mcg/kg/m, fentanyl at 0.5 mcg/kg/h. Remains on enteral feeding at 30 MLS per hour goal is 45. Remains on Zosyn for empiric coverage of aspiration pneumonia. Remains on lactulose and the dose was increased to 45 ML 4 times a day, and added Xifaxan at 550 mg twice a day. His lactulose does not seem to be inducing enough diarrhea did get his ammonia level down. Continues to have significantly elevated ammonia level in spite of lactulose for the last 2 days. Patient continues to have ascites. And no plans for paracentesis as recommended by gastroenterology at this point. Chest x-ray showed very minimal improvement if any in his bilateral infiltrates. The bilateral infiltrates are suggestive of aspiration pneumonia. Obviously the patient is known to have history of alcoholism, and he presented with alcoholic liver hepatitis, and hepatic en cephalopathy. Labs today were all reviewed WBC is 14.1 hemoglobin is 9.4 platelets are 75,000 INR is 1.7. Electrolytes are unremarkable except for low potassium of 3.4 BUN of 27 creatinine 1.32. Liver enzymes are borderline elevated. Total bilirubin is improving down to 8.9 today. Albumin is 2.3 Patient was reevaluated today on 02/26/20, remains in the ICU, intubated, mechanically ventilated. Patient is on assist control rate of 26 tidal volume 450 FiO2 50% and PEEP is 12. Chest x-ray is showing definite improvement, however his ABG is basically about the same with a pO2 of 68 pCO2 of 38 and pH of 7.38. His ammonia level is on the rise in spite of the fact that the patient is on relatively high dose of lactulose and he is also on Xifaxan. Patient remains on propofol at 40 mcg/kg/m, fentanyl at 0.5 mcg/kg/h, he is on very small dose of norepinephrine at 0.01 mcg/kg/m, IV fluid is at KVO, and he is also on Zosyn for presumptive aspiration pneumonia. Remains on diuretics in the form of Lasix, Aldactone. His Lasix was increased to 40 mg 3 times a day, and he is on Aldactone via nasogastric tube. Patient was taken off sedation today, however he became extremely agitated, tachypneic, tachycardic, hence we had to place him back on sedation and continued assist control mode of mechanical ventilation. Chest x-ray again showed improvement. WBC count today is 11 hemoglobin is 8.5 his INR is 1.7 basic metabolic profile is improving, creatinine however is up to 1.40, and the patient obviously developed acute kidney injury. This could very well be related to his sepsis, and related to his hypotension requiring norepinephrine. Cultures including blood cultures and sputum cultures have been negative. Objective - Vital Signs Vital signs: Vital Signs Temp 98.1 F 07/02/20 04:00 Pulse 86 02/26/20 12:13 Resp 42 H 02/26/20 11:00 BP 114/58 02/26/20 07:00 Pulse Ox 98 02/26/20 11:00 Intake & Output 02/25/20 02/26/20 02/26/20 18:59 06:59 18:59 Intake Total 2095.945 1416 749.171 Output Total 1115 710 395 Balance 980.945 706 354.171 Weight 91 kg Intake: IV 833 736 365 Normal Saline Pressure 33 36 15 Bag Piperacillin-Tazobactam 3 200 100 100 .375 gm In Sodium Chloride 0.9% 100 ml @ 25 mls/hr IVPB Q8HR [facility] Rx# :[id number] Sodium Chloride 0.9% 1, 600 600 250 000 ml @ 50 mls/hr IV . Q20H [facility] Rx#:[id number] Intake, IV Titration 632.945 200 164.171 Amount Norepinephrine 4 mg In 223.317 30.683 Sodium Chloride 0.9% 250 ml @ 0.05 MCG/KG/MIN 15. 338 mls/hr IV .[id number] [facility] Rx#:[id number] Potassium Chloride 20 meq 100 In Water For Injection 1 100ml.bag @ 50 mls/hr IVPB Q2H [facility] Rx#: [id number] Propofol 1,000 mg In 268.211 200 33.488 Empty Bag 1 bag @ Titrate IV .Q0M [facility] Rx#: [id number] fentaNYL (PF) 1,000 mcg 41.417 100 In Sodium Chloride 0.9% 80 ml @ 50 MCG/HR 5 mls/ hr IV .Q20H [facility] Rx#: [id number] Tube Feeding 360 480 160 Other 270 60 Output: Urine 1115 710 395 Other: Voiding Method Indwelling Catheter Indwelling Catheter Indwelling Catheter ABP, PAP, CO, CI - Last Documented Arterial Blood Pressure 121/59 - Exam Physical Exam: Revealed 54-year-old white male on mechanical ventilation, sedated, on propofol, and on fentanyl, Head: Atraumatic, normocephalic. HEENT:[PERRLA, EOMI, positive icterus. No neck masses, no JVD, no stridor, endotracheal tube and orogastric tube are intact. Chest: Crackles and rhonchi bilaterally. No wheezes. Symmetrical chest expansion.] Cardiac Exam: [Normal S1 and S2, no S3 gallop, 2/6 systolic murmur thought the precordium.] Abdomen: [Soft, nontender, suspect positive ascites, no rebound, no guarding, positive bowel sounds. Extremities: [No clubbing, 2+ bipedal edema, no cyanosis.] Deformity noted on the dorsal aspect of the right foot, hence I recommended orthopedic evaluation. This is related to trauma. Neurological Exam: Cannot be assessed, patient is fully sedated, on mechanical ventilation. Psychiatric: Could not be assessed. Skin: No rashes. - Labs CBC & Chem 7: 02/26/20 04:45 02/26/20 04:45 Labs: Abnormal Lab Results - Last 24 Hours (Table) 02/25/20 02/26/20 02/26/20 Range/Units 16:49 00:25 04:45 WBC (3.8-10.6) k/uL RBC (4.30-5.90) m/uL Hgb (13.0-17.5) gm/dL Hct (39.0-53.0) % MCV (80.0-100.0) fL RDW (11.5-15.5) % Plt Count (150-450) k/uL Neutrophils # (1.3-7.7) k/uL Macrocytosis PT (9.0-12.0) sec INR (<1.2) ABG pO2 (83-108) mmHg ABG O2 Saturation (94-97) % Chloride (98-107) mmol/L Carbon Dioxide (22-30) mmol/L BUN (9-20) mg/dL Creatinine (0.66-1.25) mg/dL Glucose (74-99) mg/dL POC Glucose (mg/dL) 178 H 183 H (75-99) mg/dL Calcium (8.4-10.2) mg/dL Ammonia 115 H (<30) umol/L 02/26/20 02/26/20 02/26/20 Range/Units 04:45 04:45 04:45 WBC 11.0 H (3.8-10.6) k/uL RBC 2.44 L (4.30-5.90) m/uL Hgb 8.5 L (13.0-17.5) gm/dL Hct 26.2 L (39.0-53.0) % MCV 107.3 H (80.0-100.0) fL RDW 23.3 H (11.5-15.5) % Plt Count 75 L (150-450) k/uL Neutrophils # 8.9 H (1.3-7.7) k/uL Macrocytosis Marked A PT 16.5 H (9.0-12.0) sec INR 1.7 H (<1.2) ABG pO2 (83-108) mmHg ABG O2 Saturation (94-97) % Chloride 118 H (98-107) mmol/L Carbon Dioxide 21 L (22-30) mmol/L BUN 33 H (9-20) mg/dL Creatinine 1.40 H (0.66-1.25) mg/dL Glucose 164 H (74-99) mg/dL POC Glucose (mg/dL) (75-99) mg/dL Calcium 7.7 L (8.4-10.2) mg/dL Ammonia (<30) umol/L 02/26/20 Range/Units 08:43 WBC (3.8-10.6) k/uL RBC (4.30-5.90) m/uL Hgb (13.0-17.5) gm/dL Hct (39.0-53.0) % MCV (80.0-100.0) fL RDW (11.5-15.5) % Plt Count (150-450) k/uL Neutrophils # (1.3-7.7) k/uL Macrocytosis PT (9.0-12.0) sec INR (<1.2) ABG pO2 68 L (83-108) mmHg ABG O2 Saturation 93.1 L (94-97) % Chloride (98-107) mmol/L Carbon Dioxide (22-30) mmol/L BUN (9-20) mg/dL Creatinine (0.66-1.25) mg/dL Glucose (74-99) mg/dL POC Glucose (mg/dL) (75-99) mg/dL Calcium (8.4-10.2) mg/dL Ammonia (<30) umol/L Microbiology - Last 24 Hours (Table) 02/22/20 14:13 Blood Culture - Preliminary Blood No Growth after 72 hours 02/23/20 03:46 Gram Stain - Final Sputum Sputum Culture - Final Assessment and Plan Assessment: Impression: Acute hypoxic respiratory failure, suspect aspiration pneumonia. Acute sepsis, possible septic shock, patient required pressors and remains on norepinephrine today. likely source is aspiration pneumonia, although abdominal source is not entirely ruled out. Blood cultures and sputum cultures remain negative. Alcohol liver disease with ascites. Jaundice, and elevated liver enzymes. Blood loss anemia, most likely the patient has acute or subacute GI bleeding, GI is following. Acute hepatic encephalopathy with significantly elevated ammonia level. Continue lactulose and Xifaxan. Recent history of fall about 2 months ago, and multiple right-sided rib fractures. History of alcoholic neuropathy. History of pericarditis Chronic back pain History of restless leg syndrome. Acute kidney injury secondary to sepsis and septic shock. Strongly doubt hepatorenal syndrome. Recommendation: Continue ventilatory support. Patient is not ready for any form of weaning at this point. Continue propofol, and fentanyl. Will be given sedation holidays on a daily basis just at least addressed mental status and assessment. Continue hemodynamic support, patient is presently on norepinephrine. Titrate accordingly. Empiric antibiotics/Zosyn. Monitor cultures including blood and sputum, so far nondiagnostic. Monitor coagulopathy and liver profile. Bilirubin seems to be trending down, IN R was 1.7 today. Transfuse to a hemoglobin of above 7. If needed. Prognosis remains extremely poor and guarded. Critical care time is 32 minutes. Time with Patient: Greater than 30
[2020-02-26 14:07] LABS: Hemoglobin A1C 4.2 % (4.0-6.0)
--- NOTE | 2020-02-26 16:13 | P.PN ---
Subjective Progress Note Date: 02/26/20 This is a 54-year-old gentleman, history of polysubstance abuse including alcohol abuse , falls with recent rib fractures, legally blind, osteoarthritis and multiple other medical issues presented to the ER with changes in mental status 2 days. Drug screen positive for tricyclics and benzos, serum alcohol less than 10. UA reported dark brown cloudy urine with occasional bacteria, hyaline casts, 2 WBCs, trace leukocytes, 4+ bilirubin, negative for nitrates. Ammonia level 91, T bili 14.9, currently 15.8 , elevated LFTs .Gallbladder ultrasound reporting abdominal ascites, abdominal x-ray nonacute, right foot x- ray reported no fracture, soft tissue swelling, EKG reported sinus tachycardia, troponin normal, BNP 910, echo reported normal LV function, EF 60-65% ,lactic acid 2.1 now down to 1.7, BUN 25, creatinine 0.8 chest x-ray reporting moderate pulmonary interstitial and airspace edema significantly worse than yesterday, pulmonary edema. ABGs noted. INR on admission 3.7, down to 2.2 Sepsis protocol, Received IV fluid resuscitation, IV antibiotics, cultures drawn. Developed respiratory failure, requiring intubation during the night. Currently on Sandostatin drip. 3 maroon stools during the night. Received 4 units of FFP and 2 units of packed RBCs to date. Hemoglobin currently 8.5. And had required pressor support with Levophed off since . Maintained on IV fluid resuscitation. Telemetry sinus rhythm. Potassium 3.2, magnesium 1.7. 02/24/2020 chest x-ray reporting persistent bilateral scattered airspace infiltrates, pleural effusion unchanged. Ventilator dependent, on FiO2 of 50 with PEEP increased to 12. Continues on lactulose with ammonia down to 80. T bili decreased to 11.3, LFTs improving. No further maroon stools. Small black stool this morning. Hemoglobin 8.6. Telemetry sinus rhythm to sinus tach. Sandostatin drip discontinued this morning. Last night patient asynchronous with vent, stacking breaths, Nimbex drip initiated. This morning Nimbex discontinued, changed to fentanyl drip. Requiring pressor support, Levophed resumed. Received vitamin K yesterday, INR 2.1. Marginal urine output, IV fluids decreased, and Lasix IV push added to med regime. Tube feedings ordered. Afebrile, WBC 14.7. Sputum culture pending, preliminary blood cultures negative at 48 hours. ABGs noted. 02/25/2020 yesterday Lasix and Aldactone initiated, creatinine mildly worsened up to 1.32. Ammonia increased up to 89, lactulose increased. No further maroon stools, hemoglobin increased to 9.4, platelets increased to 75. T bili trending down, 8.9, LFTs improving. Potassium 3.4. Chest x-ray reporting improving left lower lobe aeration. Right foot evaluated by orthopedic surgery, possible fluid collection, seroma with potential x-ray tomorrow. Tolerating tube feeds with minimal to no residuals, currently at 30 mls per hour with goal of 45. IV steroids added to med regimen with blood sugars increasing. Remains vent dependent with FiO2 at 50/+12 of PEEP. Continues on Levophed, fentanyl, diprovan drips. Afebrile, T-max 99.5, WBC 14.1. 02/26/2020 ABGs unchanged,remains vent dependent, FiO2 50/+12 PEEP. Chest x-ray reporting improvement. Maintained on both Xifaxan & Lactulose, ammonia increasing, beginning to stool. Creatinine trending up 1.4. Hemoglobin decreased to 8.5. INR 1.7 Levophed weaned off this morning. Attempted a sedation holiday for about an hour this morning; patient did not wake up, became agitated, tachycardic, tachypneic with respiratory rate up into the 40s, diprovan/fentanyl drips resumed. Tolerating tube feeds at 40 with goal of 45/minimal to no residual. Orthopedics discussing x-ray and foot possibly tomorrow. Afebrile WBC down to 11. Objective - Vital Signs Vital signs: Vital Signs Temp 98.1 F 02/26/20 04:00 Pulse 89 02/26/20 11:00 Resp 42 H 02/26/20 11:00 BP 114/58 02/26/20 07:00 Pulse Ox 98 02/26/20 11:00 Intake & Output 02/25/20 02/26/20 02/26/20 18:59 06:59 18:59 Intake Total 2095.945 1416 749.171 Output Total 1115 710 395 Balance 980.945 706 354.171 Weight 91 kg Intake: IV 833 736 365 Normal Saline Pressure 33 36 15 Bag Piperacillin-Tazobactam 3 200 100 100 .375 gm In Sodium Chloride 0.9% 100 ml @ 25 mls/hr IVPB Q8HR [facility] Rx# :[id number] Sodium Chloride 0.9% 1, 600 600 250 000 ml @ 50 mls/hr IV . Q20H [facility] Rx#:[id number] Intake, IV Titration 632.945 200 164.171 Amount Norepinephrine 4 mg In 223.317 30.683 Sodium Chloride 0.9% 250 ml @ 0.05 MCG/KG/MIN 15. 338 mls/hr IV .[id number] [facility] Rx#:[id number] Potassium Chloride 20 meq 100 In Water For Injection 1 100ml.bag @ 50 mls/hr IVPB Q2H [facility] Rx#: [id number] Propofol 1,000 mg In 268.211 200 33.488 Empty Bag 1 bag @ Titrate IV .Q0M [facility] Rx#: [id number] fentaNYL (PF) 1,000 mcg 41.417 100 In Sodium Chloride 0.9% 80 ml @ 50 MCG/HR 5 mls/ hr IV .Q20H [facility]ED Rx#: [id number] Tube Feeding 360 480 160 Other 270 60 Output: Urine 1115 710 395 Other: Voiding Method Indwelling Catheter Indwelling Catheter Indwelling Catheter ABP, PAP, CO, CI - Last Documented Arterial Blood Pressure 121/59 - Exam VITAL SIGNS: As above GENERAL: Sitting up in bed, intubated, sedated on both diprovan and fentanyl drips HEENT: Conjunctivae normal. Positive icterus, jaundice, NG,OG tubes present. NECK: No JVD. No thyroid enlargement. No LNs CARDIOVASCULAR: S1, S2 regular. Systolic murmur RESPIRATION: Coarse Breath sounds diminished in the bases with scattered bi lateral rhonchi and crackles, no wheezing ABDOMEN: Soft, distended, positive ascites, positive bowel sounds Extremities: Positive upper and lower extremity edema, no clubbing, no cyanosis. Right foot dorsal edema , significant ecchymosis NERVOUS SYSTEM: Unable to assess, sedated and intubated. Skin: Warm and dry, no rash - Labs CBC & Chem 7: 02/26/20 04:45 02/26/20 04:45 Labs: Abnormal Lab Results - Last 24 Hours (Table) 02/25/20 02/25/20 02/26/20 Range/Units 12:16 16:49 00:25 WBC (3.8-10.6) k/uL RBC (4.30-5.90) m/uL Hgb (13.0-17.5) gm/dL Hct (39.0-53.0) % MCV (80.0-100.0) fL RDW (11.5-15.5) % Plt Count (150-450) k/uL Neutrophils # (1.3-7.7) k/uL Macrocytosis PT (9.0-12.0) sec INR (<1.2) ABG pO2 (83-108) mmHg ABG O2 Saturation (94-97) % Chloride (98-107) mmol/L Carbon Dioxide (22-30) mmol/L BUN (9-20) mg/dL Creatinine (0.66-1.25) mg/dL Glucose (74-99) mg/dL POC Glucose (mg/dL) 165 H 178 H 183 H (75-99) mg/dL Calcium (8.4-10.2) mg/dL Ammonia (<30) umol/L 02/26/20 02/26/20 02/26/20 Range/Units 04:45 04:45 04:45 WBC 11.0 H (3.8-10.6) k/uL RBC 2.44 L (4.30-5.90) m/uL Hgb 8.5 L (13.0-17.5) gm/dL Hct 26.2 L (39.0-53.0) % MCV 107.3 H (80.0-100.0) fL RDW 23.3 H (11.5-15.5) % Plt Count 75 L (150-450) k/uL Neutrophils # 8.9 H (1.3-7.7) k/uL Macrocytosis Marked A PT 16.5 H (9.0-12.0) sec INR 1.7 H (<1.2) ABG pO2 (83-108) mmHg ABG O2 Saturation (94-97) % Chloride (98-107) mmol/L Carbon Dioxide (22-30) mmol/L BUN (9-20) mg/dL Creatinine (0.66-1.25) mg/dL Glucose (74-99) mg/dL POC Glucose (mg/dL) (75-99) mg/dL Calcium (8.4-10.2) mg/dL Ammonia 115 H (<30) umol/L 02/26/20 02/26/20 Range/Units 04:45 08:43 WBC (3.8-10.6) k/uL RBC (4.30-5.90) m/uL Hgb (13.0-17.5) gm/dL Hct (39.0-53.0) % MCV (80.0-100.0) fL RDW (11.5-15.5) % Plt Count (150-450) k/uL Neutrophils # (1.3-7.7) k/uL Macrocytosis PT (9.0-12.0) sec INR (<1.2) ABG pO2 68 L (83-108) mmHg ABG O2 Saturation 93.1 L (94-97) % Chloride 118 H (98-107) mmol/L Carbon Dioxide 21 L (22-30) mmol/L BUN 33 H (9-20) mg/dL Creatinine 1.40 H (0.66-1.25) mg/dL Glucose 164 H (74-99) mg/dL POC Glucose (mg/dL) (75-99) mg/dL Calcium 7.7 L (8.4-10.2) mg/dL Ammonia (<30) umol/L Microbiology - Last 24 Hours (Table) 02/22/20 14:13 Blood Culture - Preliminary Blood No Growth after 72 hours 02/23/20 03:46 Gram Stain - Final Sputum Sputum Culture - Final Assessment and Plan Assessment: Sepsis secondary to aspiration bilateral pneumonia, possibly abdominal source, Acute hypoxic respiratory failure, related to the above, ventilator dependent Septic and hypovolemic shock multifactorial, secondary to bilateral aspiration pneumonia, alcoholic liver disease Hypotension, secondary to the above, pressor support dependent secondary to sepsis Acute renal failure multifactorial, secondary to all the above, diuretics Acute GI bleed, possible esophageal varices in a patient with significant alcohol dependence, on Sandostatin Acute blood loss anemia, status post multiple transfusions of both FFP, packed RBCs Acute Hepatic encephalopathy Alcoholic liver disease with ascites Hyperammonia Recent posterior lateral rib fractures of 9, 10 and 11 status post fall History of pericarditis Chronic back pain Polysubstance abuse, per record review; patient reports alcohol, marijuana use currently. History of nicotine dependence COPD, emphysema Legally blind Obesity, BMI 30.7 Osteoarthritis Venous insufficiency Anxiety, depression, history of, currently controlled Hyperglycemia, steroid-induced Moderate protein calorie malnutrition Plan: Continue on current medication regime ,monitoring and symptomatic treatment. 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 Diuretics increased today. Lactulose , Xifaxan, empiric antibiotics .Close monitoring of coags. orthopedic surgery reporting no evident fractures per x-rays or abscess evaluation of right foot in progress. Prognosis guarded given multiple complex medical issues. The impression and plan of care has been dictated as directed. : I performed a history and examination of this patient, discussed the same with the dictator. I agree with the dictator's note ,documented as a scribe. Any additional findings or plans will be noted.
[2020-02-26 16:18] LABS: Glucose,Whole Blood 151 mg/dL (75-99)
[2020-02-26 18:58] LABS: Glucose,Whole Blood 150 mg/dL (75-99)
[2020-02-26] MEDS: NOREPINEPHRINE 4 MG in SODIUM CHLORIDE 0.9% 250 ML IV SCH (19:46)
[2020-02-26] MEDS ORDERED: ATROPINE SULFATE 0.1 MG/ML 10ML SYRINGE ONE (19:51)
[2020-02-26] MEDS: POTASSIUM BICARBONATE/CIT AC 20 MEQ TABLET.EFF NG-TUBE SCH ×2 (21:11→22:17)
[2020-02-26] MEDS ORDERED: POTASSIUM CHLORIDE 20 MEQ in WATER FOR INJECTION 1 100ML.BAG IVPB SCH (22:15)
--- NOTE | 2020-02-26 22:40 | P.PN ---
Subjective Progress Note Date: 02/26/20 Principal diagnosis: Alcoholic hepatitis, alcoholic cirrhosis of the liver with ascites, hepatic encephalopathy, elevated liver enzymes Patient is seen in the intensive care unit where he is currently intubated and sedated. Patient was given a sedation on the day today but came to And agitated. Objective - Vital Signs Vital signs: Vital Signs Temp 98.1 F 02/26/20 04:00 Pulse 86 02/26/20 12:13 Resp 42 H 02/26/20 11:00 BP 114/58 02/26/20 07:00 Pulse Ox 98 02/26/20 11:00 Intake & Output 02/25/20 02/26/20 02/26/20 18:59 06:59 18:59 Intake Total 2095.945 1416 749.171 Output Total 1115 710 395 Balance 980.945 706 354.171 Weight 91 kg Intake: IV 833 736 365 Normal Saline Pressure 33 36 15 Bag Piperacillin-Tazobactam 3 200 100 100 .375 gm In Sodium Chloride 0.9% 100 ml @ 25 mls/hr IVPB Q8HR [facility] Rx# :[id number] Sodium Chloride 0.9% 1, 600 600 250 000 ml @ 50 mls/hr IV . Q20H [facility] Rx#:[id number] Intake, IV Titration 632.945 200 164.171 Amount Norepinephrine 4 mg In 223.317 30.683 Sodium Chloride 0.9% 250 ml @ 0.05 MCG/KG/MIN 15. 338 mls/hr IV .[id number] [facility] Rx#:[id number] Potassium Chloride 20 meq 100 In Water For Injection 1 100ml.bag @ 50 mls/hr IVPB Q2H [facility] Rx#: [id number] Propofol 1,000 mg In 268.211 200 33.488 Empty Bag 1 bag @ Titrate IV .Q0M [facility] Rx#: [id number] fentaNYL (PF) 1,000 mcg 41.417 100 In Sodium Chloride 0.9% 80 ml @ 50 MCG/HR 5 mls/ hr IV .Q20H [facility] Rx#: [id number] Tube Feeding 360 480 160 Other 270 60 Output: Urine 1115 710 395 Other: Voiding Method Indwelling Catheter Indwelling Catheter Indwelling Catheter ABP, PAP, CO, CI - Last Documented Arterial Blood Pressure 121/59 - Exam On physical examination, patient appears comfortable in no apparent distress. HEAD: Normocephalic, atraumatic. EYES: Scleral icterus. No conjunctival injection. MOUTH: No lesions, tongue midline, endotracheal tube in place. NECK: Trachea midline, no gross abnormalities. CHEST: Coarse respiratory noises in all lung soni on mechanical ventilation. ABDOMEN: Soft, obese. Bowel sounds are positive. No organomegaly. No guarding or rigidity. EXTREMITIES: Bilateral pedal edema. SKIN: No rashes, jaundice. NEUROLOGIC: Intubated and sedated. - Labs CBC & Chem 7: 02/26/20 04:45 02/26/20 19:49 Labs: Abnormal Lab Results - Last 24 Hours (Table) 02/25/20 02/26/20 02/26/20 Range/Units 16:49 00:25 04:45 WBC (3.8-10.6) k/uL RBC (4.30-5.90) m/uL Hgb (13.0-17.5) gm/dL Hct (39.0-53.0) % MCV (80.0-100.0) fL RDW (11.5-15.5) % Plt Count (150-450) k/uL Neutrophils # (1.3-7.7) k/uL Macrocytosis PT (9.0-12.0) sec INR (<1.2) ABG pO2 (83-108) mmHg ABG O2 Saturation (94-97) % Chloride (98-107) mmol/L Carbon Dioxide (22-30) mmol/L BUN (9-20) mg/dL Creatinine (0.66-1.25) mg/dL Glucose (74-99) mg/dL POC Glucose (mg/dL) 178 H 183 H (75-99) mg/dL Calcium (8.4-10.2) mg/dL Ammonia 115 H (<30) umol/L 02/26/20 02/26/20 02/26/20 Range/Units 04:45 04:45 04:45 WBC 11.0 H (3.8-10.6) k/uL RBC 2.44 L (4.30-5.90) m/uL Hgb 8.5 L (13.0-17.5) gm/dL Hct 26.2 L (39.0-53.0) % MCV 107.3 H (80.0-100.0) fL RDW 23.3 H (11.5-15.5) % Plt Count 75 L (150-450) k/uL Neutrophils # 8.9 H (1.3-7.7) k/uL Macrocytosis Marked A PT 16.5 H (9.0-12.0) sec INR 1.7 H (<1.2) ABG pO2 (83-108) mmHg ABG O2 Saturation (94-97) % Chloride 118 H (98-107) mmol/L Carbon Dioxide 21 L (22-30) mmol/L BUN 33 H (9-20) mg/dL Creatinine 1.40 H (0.66-1.25) mg/dL Glucose 164 H (74-99) mg/dL POC Glucose (mg/dL) (75-99) mg/dL Calcium 7.7 L (8.4-10.2) mg/dL Ammonia (<30) umol/L 02/26/20 Range/Units 08:43 WBC (3.8-10.6) k/uL RBC (4.30-5.90) m/uL Hgb (13.0-17.5) gm/dL Hct (39.0-53.0) % MCV (80.0-100.0) fL RDW (11.5-15.5) % Plt Count (150-450) k/uL Neutrophils # (1.3-7.7) k/uL Macrocytosis PT (9.0-12.0) sec INR (<1.2) ABG pO2 68 L (83-108) mmHg ABG O2 Saturation 93.1 L (94-97) % Chloride (98-107) mmol/L Carbon Dioxide (22-30) mmol/L BUN (9-20) mg/dL Creatinine (0.66-1.25) mg/dL Glucose (74-99) mg/dL POC Glucose (mg/dL) (75-99) mg/dL Calcium (8.4-10.2) mg/dL Ammonia (<30) umol/L Microbiology - Last 24 Hours (Table) 02/22/20 14:13 Blood Culture - Preliminary Blood No Growth after 72 hours 02/23/20 03:46 Gram Stain - Final Sputum Sputum Culture - Final Assessment and Plan (1) Acute alcoholic hepatitis Narrative/Plan: 54-year-old male with known history of alcohol abuse presenting to the hospital with altered mental status. Likely multifactorial given suspected underlying decompensated cirrhosis, acute alcoholic hepatitis and concern for aspiration pneumonia and sepsis. Currently receiving treatment in the ICU, he remains on broad-spectrum antibiotic therapy and mechanically ventilated. Current Visit: Yes Status: Acute Code(s): K70.10 - ALCOHOLIC HEPATITIS WITHOUT ASCITES SNOMED Code(s): 9683106 (2) Liver cirrhosis Current Visit: Yes Status: Acute Code(s): K74.60 - UNSPECIFIED CIRRHOSIS OF LIVER SNOMED Code(s): 45054280 (3) Ascites Current Visit: Yes Status: Acute Code(s): R18.8 - OTHER ASCITES SNOMED Code(s): 632261719 (4) Hepatic encephalopathy Current Visit: Yes Status: Acute Code(s): K72.90 - HEPATIC FAILURE, UNSPECIFIED WITHOUT COMA SNOMED Code(s): 68547312 (5) Bicytopenia Narrative/Plan: Patient anemic and thrombocytopenic likely related to chronic alcohol use. Stool testing was positive for blood but patient has no signs or symptoms of GI bleeding with normal brown stool noted and fecal management system. Hemoglobin has remained stable. Current Visit: Yes Status: Acute Code(s): D75.89 - OTHER SPECIFIED DISEASES OF BLOOD AND BLOOD-FORMING ORGANS SNOMED Code(s): 37489354 Plan: Supportive care Nothing by mouth, okay for tube feeds as tolerated, was contacted tonight about a episode of vomiting of tube feed and instructed nursing to hold to feeds for tonight and restart in the a.m., however if further vomiting would benefit from abdominal x-ray to rule out ileus Continue management per pipeline welder service, patient currently intubated and sedated Continue broad-spectrum antibiotic therapy Continue lactulose 4 times a day Xifaxan twice daily Can consider paracentesis when patient is medically stable Patient is on diuretic therapy with Lasix 3 times a day and Aldactone 3 times a day Alcohol abstinence Thank you for allowing us to participate in the care of the patient we will continue to follow
[2020-02-26 23:43] LABS: Glucose,Whole Blood 148 mg/dL (75-99)
[2020-02-26] MEDS: fentaNYL (PF) 1,000 MCG in SODIUM CHLORIDE 0.9% 80 ML IV SCH (23:47)
[2020-02-27] MEDS: SODIUM CHLORIDE 0.9% 1,000 ML IV SCH ×2 (03:53→21:29)
[2020-02-27 04:46] LABS: Anisocytosis Moderate; HCT 26.2 % (39.0-53.0); HGB 8.4 gm/dL (13.0-17.5); Hypochromasia Slight; MCH 34.7 pg (25.0-35.0); MCHC 32.2 g/dL (31.0-37.0); Mean Platelet Volume 9.7; RBC 2.43 m/uL (4.30-5.90); RDW 23.7 % (11.5-15.5); WBC 10.2 k/uL (3.8-10.6)
[2020-02-27 04:52] LABS: Platelet Count 71 k/uL (150-450)
[2020-02-27 04:53] LABS: Macrocytosis Marked
[2020-02-27 05:03] LABS: Albumin 2.3 g/dL (3.5-5.0); Calcium 7.8 mg/dL (8.4-10.2); Magnesium 1.9 mg/dL (1.6-2.3); Phosphorus 4.6 mg/dL (2.5-4.5); Potassium 3.7 mmol/L (3.5-5.1); Total Bilirubin 5.8 mg/dL (0.2-1.3); Total Protein 6.5 g/dL (6.3-8.2)
[2020-02-27] MEDS: PROPOFOL 1,000 MG in EMPTY BAG 1 BAG IV SCH ×4 (05:45→23:55)
[2020-02-27] MEDS ORDERED: POTASSIUM BICARBONATE/CIT AC 20 MEQ TABLET.EFF NG-TUBE SCH (06:00)
--- NOTE | 2020-02-27 07:18 | XR ---
EXAMINATION TYPE: XR chest 1V portable DATE OF EXAM: 02/27/2020 COMPARISON: Prior chest x-ray 02/26/2020 HISTORY: Intubated TECHNIQUE: Single frontal view of the chest is obtained. FINDINGS: Endotracheal tube and NG tube are overlying appropriate position, side-port of the NG tube is near the level of the gastroesophageal junction. Is no pneumothorax or pleural effusion. Probable subsegmental basilar atelectatic change present on the left versus scarring, difficult to exclude pn eumonia in aeration appears somewhat improved. There are overlying artifacts. Heart size is stable. IMPRESSION: There is some improved aeration as compared to prior exam.
[2020-02-27 07:43] LABS: Glucose,Whole Blood 152 mg/dL (75-99)
[2020-02-27] MEDS: PIPERACILLIN-TAZOBACTAM 3.375 GM in SODIUM CHLORIDE 0.9% 100 ML IVPB SCH ×3 (08:00→23:54)
[2020-02-27] MEDS: INSULIN ASPART (NovoLOG) 100 UNIT/ML VIAL SQ SCH ×4 (08:00→23:54)
[2020-02-27] MEDS: PANTOPRAZOLE 40 MG/10 ML VIAL IVP SCH ×2 (08:00→21:28)
[2020-02-27] MEDS: RIFAXIMIN 550 MG TABLET PO SCH ×3 (08:01→21:30)
[2020-02-27] MEDS: FUROSEMIDE 10 MG/ML 4 ML VIAL IV SCH ×3 (08:01→23:53)
[2020-02-27] MEDS: LACTULOSE 20 GM/30 ML CUP PO SCH ×4 (08:01→21:28)
[2020-02-27] MEDS: CHLORHEXIDINE GLUCONATE 15 ML CUP MUCOUS MEM SCH ×2 (08:01→21:28)
[2020-02-27] MEDS: methylPREDNISolone SOD SUCCI 40 MG/ML 1 ML VIAL IV SCH ×3 (08:01→23:53)
[2020-02-27] MEDS: SPIRONOLACTONE 25 MG TAB PO SCH ×3 (08:02→21:28)
[2020-02-27 08:07] LABS: ABG Base Excess -2.5 mmol/L; ABG HCO3 22 mmol/L (21-25); ABG Oxygen Saturation 99.2 % (94-97); ABG PCO2 34 mmHg (35-45); ABG PH 7.42 (7.35-7.45); ABG PO2 119 mmHg (83-108); ABG TCO2 23 mmol/L (19-24); Allen Test Performed? Yes
[2020-02-27] MEDS: IPRATROPIUM-ALBUTEROL 3 ML NEB INHALATION SCH ×4 (08:17→19:52)
--- NOTE | 2020-02-27 10:30 | P.PN ---
Subjective Progress Note Date: 02/27/20 Principal diagnosis: acute hypoxic respiratory failure secondary to aspiration pneumonia and acute sepsis patient evaluated today, in the intensive care unit, intubated and mechanically ventilated. This morning's chest x-ray showing continued improvement. Ammonia level is 69 which actually is down compared to previous results. Objective - Vital Signs Vital signs: Vital Signs Temp 98.2 F 02/27/20 08:00 Pulse 89 02/27/20 10:00 Resp 23 02/27/20 10:00 BP 108/60 02/27/20 10:00 Pulse Ox 100 02/27/20 10:00 Intake & Output 02/26/20 02/27/20 02/27/20 18:59 06:59 18:59 Intake Total 1816.135 9326.975 385.177 Output Total 980 1841 290 Balance 580.171 -779.025 95.177 Weight 91 kg 91.8 kg Intake: IV 736 736 112 Normal Saline Pressure 36 36 12 Bag Piperacillin-Tazobactam 3 100 100 .375 gm In Sodium Chloride 0.9% 100 ml @ 25 mls/hr IVPB Q8HR [facility] Rx# :[id number] Sodium Chloride 0.9% 1, 600 600 100 000 ml @ 50 mls/hr IV . Q20H [facility] Rx#:[id number] Intake, IV Titration 264.171 265.975 93.177 Amount Norepinephrine 4 mg In 30.683 28.938 Sodium Chloride 0.9% 250 ml @ 0.05 MCG/KG/MIN 15. 338 mls/hr IV .[id number] JARED Rx#:[id number] Piperacillin-Tazobactam 3 100 .375 gm In Sodium Chloride 0.9% 100 ml @ 25 mls/hr IVPB Q8HR [facility] Rx# :[id number] Propofol 1,000 mg In 33.488 237.037 93.177 Empty Bag 1 bag @ Titrate IV .Q0M [facility] Rx#: [id number] fentaNYL (PF) 1,000 mcg 100 In Sodium Chloride 0.9% 80 ml @ 50 MCG/HR 5 mls/ hr IV .Q20H [facility]ED Rx#: [id number] Tube Feeding 440 0 0 Other 120 60 180 Output: Urine 980 641 290 Stool 1200 Other: Voiding Method Indwelling Catheter Indwelling Catheter ABP, PAP, CO, CI - Last Documented Arterial Blood Pressure 113/53 - Exam General: intubated,mechanical ventilation HEENT: mild scleral icterus endotracheal tube oral gastric tube is intact Neck: [No adenopathy.] Cardiac: [Heart regular in rate and rhythm. normal S1 and S2, regular 6 systolic murmur Lungs: crackles and/or rhonchi bilateral Abdomen: [No mass. No organomegaly. Bowel sounds presnt and normoactive in all 4 quadrants.] Extremes: 2+ bipedal edema, no cyanosis, deformity noted dorsal aspect right foot : [] Musculoskeletal: [No joint erythema, edema or tenderness.] Skin: [No rash.] Neurologic: cannot be assessed, fully sedated, on mechanical ventilation Lymphatic: [No adenopathy.] - Labs CBC & Chem 7: 02/27/20 04:40 02/27/20 04:40 Labs: Abnormal Lab Results - Last 24 Hours (Table) 02/26/20 02/26/20 02/26/20 Range/Units 16:16 18:57 23:41 RBC (4.30-5.90) m/uL Hgb (13.0-17.5) gm/dL Hct (39.0-53.0) % MCV (80.0-100.0) fL RDW (11.5-15.5) % Plt Count (150-450) k/uL Macrocytosis ABG pCO2 (35-45) mmHg ABG pO2 (83-108) mmHg ABG O2 Saturation (94-97) % Sodium (137-145) mmol/L Chloride (98-107) mmol/L BUN (9-20) mg/dL Creatinine (0.66-1.25) mg/dL Glucose (74-99) mg/dL POC Glucose (mg/dL) 151 H 150 H 148 H (75-99) mg/dL Calcium (8.4-10.2) mg/dL Phosphorus (2.5-4.5) mg/dL Total Bilirubin (0.2-1.3) mg/dL AST (17-59) U/L Ammonia (<30) umol/L Albumin (3.5-5.0) g/dL 02/27/20 02/27/20 02/27/20 Range/Units 04:40 04:40 07:42 RBC 2.43 L (4.30-5.90) m/uL Hgb 8.4 L (13.0-17.5) gm/dL Hct 26.2 L (39.0-53.0) % MCV 108.0 H (80.0-100.0) fL RDW 23.7 H (11.5-15.5) % Plt Count 71 L (150-450) k/uL Macrocytosis Marked A ABG pCO2 (35-45) mmHg ABG pO2 (83-108) mmHg ABG O2 Saturation (94-97) % Sodium 146 H (137-145) mmol/L Chloride 120 H (98-107) mmol/L BUN 49 H (9-20) mg/dL Creatinine 1.46 H (0.66-1.25) mg/dL Glucose 133 H (74-99) mg/dL POC Glucose (mg/dL) 152 H (75-99) mg/dL Calcium 7.8 L (8.4-10.2) mg/dL Phosphorus 4.6 H (2.5-4.5) mg/dL Total Bilirubin 5.8 H (0.2-1.3) mg/dL AST 130 H (17-59) U/L Ammonia (<30) umol/L Albumin 2.3 L (3.5-5.0) g/dL 02/27/20 02/27/20 Range/Units 07:59 08:30 RBC (4.30-5.90) m/uL Hgb (13.0-17.5) gm/dL Hct (39.0-53.0) % MCV (80.0-100.0) fL RDW (11.5-15.5) % Plt Count (150-450) k/uL Macrocytosis ABG pCO2 34 L (35-45) mmHg ABG pO2 119 H (83-108) mmHg ABG O2 Saturation 99.2 H (94-97) % Sodium (137-145) mmol/L Chloride (98-107) mmol/L BUN (9-20) mg/dL Creatinine (0.66-1.25) mg/dL Glucose (74-99) mg/dL POC Glucose (mg/dL) (75-99) mg/dL Calcium (8.4-10.2) mg/dL Phosphorus (2.5-4.5) mg/dL Total Bilirubin (0.2-1.3) mg/dL AST (17-59) U/L Ammonia 69 H (<30) umol/L Albumin (3.5-5.0) g/dL Microbiology - Last 24 Hours (Table) 02/22/20 14:13 Blood Culture - Preliminary Blood No Growth after 96 hours Assessment and Plan (1) Sepsis with acute hypoxic respiratory failure and septic shock Current Visit: Yes Status: Acute Code(s): A41.9 - SEPSIS, UNSPECIFIED ORGANISM; R65.21 - SEVERE SEPSIS WITH SEPTIC SHOCK; J96.01 - ACUTE RESPIRATORY FAILURE WITH HYPOXIA SNOMED Code(s): 505202536 (2) Serum ammonia increased Current Visit: Yes Status: Acute Code(s): E72.20 - DISORDER OF UREA CYCLE METABOLISM, UNSPECIFIED SNOMED Code(s): 1281439 (3) Anemia due to blood loss, acute Current Visit: Yes Status: Acute Code(s): D62 - ACUTE POSTHEMORRHAGIC ANEMIA SNOMED Code(s): 849400356 (4) Alcoholic peripheral neuropathy Current Visit: Yes Status: Acute Code(s): G62.1 - ALCOHOLIC POLYNEUROPATHY SNOMED Code(s): 1343743 (5) Acute alcoholic hepatitis Current Visit: Yes Status: Acute Code(s): K70.10 - ALCOHOLIC HEPATITIS WITHOUT ASCITES SNOMED Code(s): 7139042 (6) Ascites Current Visit: Yes Status: Acute Code(s): R18.8 - OTHER ASCITES SNOMED Code(s): 844514779 (7) Bicytopenia Current Visit: Yes Status: Acute Code(s): D75.89 - OTHER SPECIFIED DISEASES OF BLOOD AND BLOOD-FORMING ORGANS SNOMED Code(s): 06242660 (8) Foot swelling Current Visit: Yes Status: Acute Priority: Medium Code(s): M79.89 - OTHER SPECIFIED SOFT TISSUE DISORDERS SNOMED Code(s): 402135049 (9) GI hemorrhage Current Visit: Yes Status: Acute Code(s): K92.2 - GASTROINTESTINAL HEMORRHAGE, UNSPECIFIED SNOMED Code(s): 44446932 (10) Hepatic encephalopathy Current Visit: Yes Status: Acute Code(s): K72.90 - HEPATIC FAILURE, UNSPECIFIED WITHOUT COMA SNOMED Code(s): 08297706 (11) Liver cirrhosis Current Visit: Yes Status: Acute Code(s): K74.60 - UNSPECIFIED CIRRHOSIS OF LIVER SNOMED Code(s): 29477468 (12) Pneumonia Current Visit: Yes Status: Acute Code(s): J18.9 - PNEUMONIA, UNSPECIFIED ORGANISM SNOMED Code(s): 452419773 (13) Sepsis Current Visit: Yes Status: Acute Code(s): A41.9 - SEPSIS, UNSPECIFIED ORGANISM SNOMED Code(s): 33694199 Plan: continue ventilatory support Continue sedation Patient is presently on norepinephrine Patient has on empiric IV antibiotics Zosyn Monitoring ammonia levels which is recently improving Monitoring coagulopathy and liver profile Prognosis is poor Time with Patient: Greater than 30
--- NOTE | 2020-02-27 11:40 | P.PN ---
Subjective Progress Note Date: 02/27/20 Principal diagnosis: Acute hypoxic respiratory failure secondary to aspiration pneumonia, and acute sepsis. This is a 54-year-old white male, history of alcohol abuse, patient was brought into the ER with change in mental status according to EMS. Patient could not give any history, he was a very poor historian upon arrival to the ER. Patient is supposedly a daily drinker, however from my review of the chart, I saw this patient back on 11/11/19, patient presented back then with multiple posterior lateral rib fractures on the right. Apparently he fell in his bathroom, and landed on the side of the top sustaining multiple rib fractures. Patient sustained rib fractures of 910 and 11 ribs. Patient is also known to have history of severe emphysema/COPD. He is legally blind. He has history of pericarditis, anxiety, and history of degenerative joint disease. Patient was discharged home on 11/12/19. Drug screen in the ER was positive for tricyclic antidepressants and positive for benzodiazepines. Rest of the drug screen was basically negative. ABG in the ER showed a pO2 of 63 pCO2 of 29 pH of 7.49. Patient was also noted to have elevated INR of 3.7. Low hemoglobin of 7.0 although his baseline hemoglobin from 2 months ago was 15.1. Ammonia level was 91. Total bilirubin was 14.9, and his liver enzymes were a bit elevated. Normal amylase and lipase were noted. Gallbladder ultrasound showed abdominal ascites. Chest x-ray showed bilateral diffuse infiltrates. Patient was presumed septic upon presentation, received fluid boluses of 2500 ML's. Patient was found to have hepatic encephalopathy liver failure, bilateral pneumonia, GI hemorrhage and sepsis. Early this morning, patient was intubated, placed on mechanical ventilation, and he was aware of the patient since admission. Presently the patient is on assist control rate of 28 tidal volume is 500 FiO2 is 100% PEEP of 5. ABG showed a pO2 of 170 pCO2 of 31 pH of 7.46. Hence I cut down the FiO2 to 50%, increased the PEEP to 8, cut down the tidal volume to 450, and decrease the respiratory rate to 26. Patient is on Sandostatin for his GI bleeding, and he is yet to be seen by gastroenterology on consultation is also on Protonix. He is on lactulose for his elevated ammonia level. And he is empirically on Zosyn for presumptive aspiration pneumonia. Echocardiogram showed evidence of good LV function. And mild valvular heart disease. BNP level was borderline elevated at 910 Patient was reevaluated today on 02/24/20, remains on mechanical ventilation. He is presently on assist control rate of 26 tidal volume is 450 FiO2 of 60% and PEEP of 8. However I increased his PEEP to 12 and cut down his FiO2 to 50%. At night the patient developed worsening agitation, and Stacking his breaths, was not synchronous with mechanical ventilation, hence had to place the patient on Nimbex. Today I plan to discontinue Nimbex and place him on fentanyl 25 g per hour. Patient will be started on tube feeding, and I cut down his IV fluid to 50 MLS per hour. Remains on propofol at 60 mcg/kg/m, Nimbex which will be discontinued, but creatinine which was discontinued this morning, and no repinephrine at 0.06 mcg/kg/m. Enteral feeding to be started today by visual inspector. Patient remains on antibiotics, remains on lactulose for his elevated ammonia level which is 80 today. And he remains on Protonix. Chest x- ray showed more consolidation noted bilaterally in both lungs more so in the left lung. Bilateraldisease is noted consistent with aspiration pneumonia. Sputum cultures and blood cultures so far remain on diagnostic. ABG today showed a pO2 of 67 pCO2 of 39 pH of 7.33. WBC count is 14.7 hemoglobin is 8.6 platelets are 66,000 and INR is 2.1. Electrolytes are basically normal renal profile showed beer of 25 creatinine 0.94. Patient was reevaluated today on 02/25/20, remains in the intensive care unit, remains on mechanical ventilation. His ventilator settings are assist control rate of 26, tidal volume is 450 FiO2 is 50% and PEEP is at 12. ABG showed a pO2 of 65 pCO2 of 37 pH of 7.36, hence no change was made in the ventilator settings. Patient remains on norepinephrine at 0.09 mcg/kg/m, propofol at 45 mcg/kg/m, fentanyl at 0.5 mcg/kg/h. Remains on enteral feeding at 30 MLS per hour goal is 45. Remains on Zosyn for empiric coverage of aspiration pneumonia. Remains on lactulose and the dose was increased to 45 ML 4 times a day, and added Xifaxan at 550 mg twice a day. His lactulose does not seem to be inducing enough diarrhea did get his ammonia level down. Continues to have significantly elevated ammonia level in spite of lactulose for the last 2 days. Patient continues to have ascites. And no plans for paracentesis as recommended by gastroenterology at this point. Chest x-ray showed very minimal improvement if any in his bilateral infiltrates. The bilateral infiltrates are suggestive of aspiration pneumonia. Obviously the patient is known to have history of alcoholism, and he presented with alcoholic liver hepatitis, and hepatic en cephalopathy. Labs today were all reviewed WBC is 14.1 hemoglobin is 9.4 platelets are 75,000 INR is 1.7. Electrolytes are unremarkable except for low potassium of 3.4 BUN of 27 creatinine 1.32. Liver enzymes are borderline elevated. Total bilirubin is improving down to 8.9 today. Albumin is 2.3 Patient was reevaluated today on 02/26/20, remains in the ICU, intubated, mechanically ventilated. Patient is on assist control rate of 26 tidal volume 450 FiO2 50% and PEEP is 12. Chest x-ray is showing definite improvement, however his ABG is basically about the same with a pO2 of 68 pCO2 of 38 and pH of 7.38. His ammonia level is on the rise in spite of the fact that the patient is on relatively high dose of lactulose and he is also on Xifaxan. Patient remains on propofol at 40 mcg/kg/m, fentanyl at 0.5 mcg/kg/h, he is on very small dose of norepinephrine at 0.01 mcg/kg/m, IV fluid is at KVO, and he is also on Zosyn for presumptive aspiration pneumonia. Remains on diuretics in the form of Lasix, Aldactone. His Lasix was increased to 40 mg 3 times a day, and he is on Aldactone via nasogastric tube. Patient was taken off sedation today, however he became extremely agitated, tachypneic, tachycardic, hence we had to place him back on sedation and continued assist control mode of mechanical ventilation. Chest x-ray again showed improvement. WBC count today is 11 hemoglobin is 8.5 his INR is 1.7 basic metabolic profile is improving, creatinine however is up to 1.40, and the patient obviously developed acute kidney injury. This could very well be related to his sepsis, and related to his hypotension requiring norepinephrine. Cultures including blood cultures and sputum cultures have been negative. Patient was reevaluated today in the ICU, remains intubated and mechanically ventilated. His ventilator settings are assist control rate of 26 tidal volume is 450 FiO2 is 50% and PEEP is at 12 chest x-ray showed dramatic improvement. His ABG is significantly improved hence I recommended cutting down the PEEP to 8. His ammonia level is significantly improved today, it is down to 69. Sodium seems to be creeping up a little bit, and I recommended free water flushes via orogastric tube. Patient is on propofol at 50 mcg/kg/m, his tube feeding is presently on hold because of increased residual. Patient was given a sedation holiday, however when he went off propofol, the patient became extremely agitated, restless, biting on the endotracheal tube, tachycardic, tachypneic, and was extremely agitated. Hence I recommended placing him back on propofol, and not quite ready for weaning. Labs were all reviewed today. And addressed accordingly including his elevated sodium and elevated BUN of 49 creatinine 1.46. Chest x-ray showed significant improvement in his bilateral infiltrates/aspiration pneumonia. Objective - Vital Signs Vital signs: Vital Signs Temp 98.2 F 02/27/20 08:00 Pulse 79 02/27/20 11:27 Resp 26 H 02/27/20 11:00 BP 108/60 02/27/20 11:00 Pulse Ox 99 02/27/20 11:00 Intake & Output 02/26/20 02/27/20 02/27/20 18:59 06:59 18:59 Intake Total 9245.355 2611.975 473.336 Output Total 980 1841 290 Balance 580.171 -779.025 183.336 Weight 91 kg 91.8 kg Intake: IV 736 736 165 Normal Saline Pressure 36 36 15 Bag Piperacillin-Tazobactam 3 100 100 .375 gm In Sodium Chloride 0.9% 100 ml @ 25 mls/hr IVPB Q8HR [facility] Rx# :[id number] Sodium Chloride 0.9% 1, 600 600 150 000 ml @ 50 mls/hr IV . Q20H [facility] Rx#:[id number] Intake, IV Titration 264.171 265.975 128.336 Amount Norepinephrine 4 mg In 30.683 28.938 Sodium Chloride 0.9% 250 ml @ 0.05 MCG/KG/MIN 15. 338 mls/hr IV .[id number] [facility] Rx#:[id number] Piperacillin-Tazobactam 3 100 .375 gm In Sodium Chloride 0.9% 100 ml @ 25 mls/hr IVPB Q8HR [facility] Rx# :[id number] Propofol 1,000 mg In 33.488 237.037 128.336 Empty Bag 1 bag @ Titrate IV .Q0M [facility] Rx#: [id number] fentaNYL (PF) 1,000 mcg 100 In Sodium Chloride 0.9% 80 ml @ 50 MCG/HR 5 mls/ hr IV .Q20H [facility] Rx#: [id number] Tube Feeding 440 0 0 Other 120 60 180 Output: Urine 980 641 290 Stool 1200 Other: Voiding Method Indwelling Catheter Indwelling Catheter ABP, PAP, CO, CI - Last Documented Arterial Blood Pressure 83/38 - Exam Physical Exam: Revealed 54-year-old white male on mechanical ventilation, sedated, on propofol, and on fentanyl, Head: Atraumatic, normocephalic. HEENT:[PERRLA, EOMI, positive icterus. No neck masses, no JVD, no stridor, endotracheal tube and orogastric tube are intact. Chest: Crackles and rhonchi bilaterally. No wheezes. Symmetrical chest expansion.] Cardiac Exam: [Normal S1 and S2, no S3 gallop, 2/6 systolic murmur thought the precordium.] Abdomen: [Soft, nontender, suspect positive ascites, no rebound, no guarding, positive bowel sounds. Extremities: [No clubbing, 2+ bipedal edema, no cyanosis.] Deformity noted on the dorsal aspect of the right foot, secondary to trauma Neurological Exam: Cannot be assessed, patient is fully sedated, on mechanical ventilation. Psychiatric: Could not be assessed. Skin: No rashes. - Labs CBC & Chem 7: 02/27/20 04:40 02/27/20 10:10 Labs: Abnormal Lab Results - Last 24 Hours (Table) 02/26/20 02/26/20 02/26/20 Range/Units 16:16 18:57 23:41 RBC (4.30-5.90) m/uL Hgb (13.0-17.5) gm/dL Hct (39.0-53.0) % MCV (80.0-100.0) fL RDW (11.5-15.5) % Plt Count (150-450) k/uL Macrocytosis ABG pCO2 (35-45) mmHg ABG pO2 (83-108) mmHg ABG O2 Saturation (94-97) % Sodium (137-145) mmol/L Chloride (98-107) mmol/L BUN (9-20) mg/dL Creatinine (0.66-1.25) mg/dL Glucose (74-99) mg/dL POC Glucose (mg/dL) 151 H 150 H 148 H (75-99) mg/dL Calcium (8.4-10.2) mg/dL Phosphorus (2.5-4.5) mg/dL Total Bilirubin (0.2-1.3) mg/dL AST (17-59) U/L Ammonia (<30) umol/L Albumin (3.5-5.0) g/dL 02/27/20 02/27/20 02/27/20 Range/Units 04:40 04:40 07:42 RBC 2.43 L (4.30-5.90) m/uL Hgb 8.4 L (13.0-17.5) gm/dL Hct 26.2 L (39.0-53.0) % MCV 108.0 H (80.0-100.0) fL RDW 23.7 H (11.5-15.5) % Plt Count 71 L (150-450) k/uL Macrocytosis Marked A ABG pCO2 (35-45) mmHg ABG pO2 (83-108) mmHg ABG O2 Saturation (94-97) % Sodium 146 H (137-145) mmol/L Chloride 120 H (98-107) mmol/L BUN 49 H (9-20) mg/dL Creatinine 1.46 H (0.66-1.25) mg/dL Glucose 133 H (74-99) mg/dL POC Glucose (mg/dL) 152 H (75-99) mg/dL Calcium 7.8 L (8.4-10.2) mg/dL Phosphorus 4.6 H (2.5-4.5) mg/dL Total Bilirubin 5.8 H (0.2-1.3) mg/dL AST 130 H (17-59) U/L Ammonia (<30) umol/L Albumin 2.3 L (3.5-5.0) g/dL 02/27/20 02/27/20 Range/Units 07:59 08:30 RBC (4.30-5.90) m/uL Hgb (13.0-17.5) gm/dL Hct (39.0-53.0) % MCV (80.0-100.0) fL RDW (11.5-15.5) % Plt Count (150-450) k/uL Macrocytosis ABG pCO2 34 L (35-45) mmHg ABG pO2 119 H (83-108) mmHg ABG O2 Saturation 99.2 H (94-97) % Sodium (137-145) mmol/L Chloride (98-107) mmol/L BUN (9-20) mg/dL Creatinine (0.66-1.25) mg/dL Glucose (74-99) mg/dL POC Glucose (mg/dL) (75-99) mg/dL Calcium (8.4-10.2) mg/dL Phosphorus (2.5-4.5) mg/dL Total Bilirubin (0.2-1.3) mg/dL AST (17-59) U/L Ammonia 69 H (<30) umol/L Albumin (3.5-5.0) g/dL Microbiology - Last 24 Hours (Table) 02/22/20 14:13 Blood Culture - Preliminary Blood No Growth after 96 hours Assessment and Plan Assessment: Impression: Acute hypoxic respiratory failure, suspect aspiration pneumonia. Dramatic improvement noted on the chest x-ray today. Acute sepsis, possible septic shock, patient required pressors and remains on n orepinephrine today. likely source is aspiration pneumonia, although abdominal source is not entirely ruled out. Blood cultures and sputum cultures remain negative. Alcohol liver disease with ascites. Jaundice, and elevated liver enzymes. Blood loss anemia, most likely the patient has acute or subacute GI bleeding, GI is following. Acute hepatic encephalopathy with significantly elevated ammonia level. Ammonia level today is down to 69 Recent history of fall about 2 months ago, and multiple right-sided rib fractures. History of alcoholic neuropathy. History of pericarditis Chronic back pain History of restless leg syndrome. Acute kidney injury secondary to sepsis and septic shock. Strongly doubt hepatorenal syndrome. Recommendation: Continue ventilatory support. Brief sedation holiday was given earlier today, but I was called from the nurse that the patient became agitated and he was placed back on sedation. Continue propofol, and fentanyl. Continue hemodynamic support, as needed, patient is off norepinephrine today. Empiric antibiotics/Zosyn. Continue Solu-Medrol. Monitor cultures including blood and sputum, so far nondiagnostic. Monitor coagulopathy and liver profile. Liver enzymes are improving including improved bilirubin and his ammonia is significantly improved today, but remains elevated. Prognosis remains extremely poor and guarded. Critical care time is 33 minutes. Time with Patient: Greater than 30
[2020-02-27 12:58] LABS: Glucose,Whole Blood 145 mg/dL (75-99)
--- NOTE | 2020-02-27 14:58 | P.PN ---
Subjective Progress Note Date: 02/27/20 This patient is a 54-year-old male that orthopedics is following for left foot swelling, ecchymosis. Foot x-rays taken on 02/22/20 showed no signs of fracture or dislocation. Patient is examined bedside this morning. Fiance and nursing is also at bedside. Patient is currently intubated. Per the patient's fiance, the patient dropped a large vacuum box on the foot recently. She states this the origin of the swelling and ecchymosis of his foot. She states he was limping due to the pain. She states she is unaware of any additional trauma to the foot. There have been no overnight changes with the left foot at this time. Objective - Vital Signs Vital signs: Vital Signs Temp 97.6 F 02/27/20 12:00 Pulse 90 02/27/20 14:00 Resp 26 H 02/27/20 14:00 BP 106/59 02/27/20 14:00 Pulse Ox 100 02/27/20 14:00 Intake & Output 02/26/20 02/27/20 02/27/20 18:59 06:59 18:59 Intake Total 3025.239 6811.975 712.269 Output Total 980 1841 475 Balance 580.171 -779.025 237.269 Weight 91 kg 91.8 kg Intake: IV 736 736 324 Normal Saline Pressure 36 36 24 Bag Piperacillin-Tazobactam 3 100 100 .375 gm In Sodium Chloride 0.9% 100 ml @ 25 mls/hr IVPB Q8HR [facility] Rx# :[id number] Sodium Chloride 0.9% 1, 600 600 300 000 ml @ 50 mls/hr IV . Q20H [facility] Rx#:[id number] Intake, IV Titration 264.171 265.975 168.269 Amount Norepinephrine 4 mg In 30.683 28.938 Sodium Chloride 0.9% 250 ml @ 0.05 MCG/KG/MIN 15. 338 mls/hr IV .[id number] [facility] Rx#:[id number] Piperacillin-Tazobactam 3 100 .375 gm In Sodium Chloride 0.9% 100 ml @ 25 mls/hr IVPB Q8HR [facility] Rx# :[id number] Propofol 1,000 mg In 33.488 237.037 168.269 Empty Bag 1 bag @ Titrate IV .Q0M [facility] Rx#: [id number] fentaNYL (PF) 1,000 mcg 100 In Sodium Chloride 0.9% 80 ml @ 50 MCG/HR 5 mls/ hr IV .Q20H [facility] Rx#: [id number] Tube Feeding 440 0 40 Other 120 60 180 Output: Urine 980 641 475 Stool 1200 Other: Voiding Method Indwelling Catheter Indwelling Catheter ABP, PAP, CO, CI - Last Documented Arterial Blood Pressure 115/53 - Exam on examination, the patient is currently intubated. On inspection of the left foot, there is diffuse swelling and ecchymosis of the foot and ankle. This appears to be resolving and stable. The left foot is warm and well-perfused. there are no areas of fluctuance, erythema, significant warmth. No signs of infection. No swelling or erythema about the calf. - Labs CBC & Chem 7: 02/27/20 04:40 02/27/20 10:10 Labs: Abnormal Lab Results - Last 24 Hours (Table) 02/26/20 02/26/20 02/26/20 Range/Units 16:16 18:57 23:41 RBC (4.30-5.90) m/uL Hgb (13.0-17.5) gm/dL Hct (39.0-53.0) % MCV (80.0-100.0) fL RDW (11.5-15.5) % Plt Count (150-450) k/uL Macrocytosis ABG pCO2 (35-45) mmHg ABG pO2 (83-108) mmHg ABG O2 Saturation (94-97) % Sodium (137-145) mmol/L Chloride (98-107) mmol/L BUN (9-20) mg/dL Creatinine (0.66-1.25) mg/dL Glucose (74-99) mg/dL POC Glucose (mg/dL) 151 H 150 H 148 H (75-99) mg/dL Calcium (8.4-10.2) mg/dL Phosphorus (2.5-4.5) mg/dL Total Bilirubin (0.2-1.3) mg/dL AST (17-59) U/L Ammonia (<30) umol/L Albumin (3.5-5.0) g/dL 02/27/20 02/27/20 02/27/20 Range/Units 04:40 04:40 07:42 RBC 2.43 L (4.30-5.90) m/uL Hgb 8.4 L (13.0-17.5) gm/dL Hct 26.2 L (39.0-53.0) % MCV 108.0 H (80.0-100.0) fL RDW 23.7 H (11.5-15.5) % Plt Count 71 L (150-450) k/uL Macrocytosis Marked A ABG pCO2 (35-45) mmHg ABG pO2 (83-108) mmHg ABG O2 Saturation (94-97) % Sodium 146 H (137-145) mmol/L Chloride 120 H (98-107) mmol/L BUN 49 H (9-20) mg/dL Creatinine 1.46 H (0.66-1.25) mg/dL Glucose 133 H (74-99) mg/dL POC Glucose (mg/dL) 152 H (75-99) mg/dL Calcium 7.8 L (8.4-10.2) mg/dL Phosphorus 4.6 H (2.5-4.5) mg/dL Total Bilirubin 5.8 H (0.2-1.3) mg/dL AST 130 H (17-59) U/L Ammonia (<30) umol/L Albumin 2.3 L (3.5-5.0) g/dL 02/27/20 02/27/20 02/27/20 Range/Units 07:59 08:30 12:56 RBC (4.30-5.90) m/uL Hgb (13.0-17.5) gm/dL Hct (39.0-53.0) % MCV (80.0-100.0) fL RDW (11.5-15.5) % Plt Count (150-450) k/uL Macrocytosis ABG pCO2 34 L (35-45) mmHg ABG pO2 119 H (83-108) mmHg ABG O2 Saturation 99.2 H (94-97) % Sodium (137-145) mmol/L Chloride (98-107) mmol/L BUN (9-20) mg/dL Creatinine (0.66-1.25) mg/dL Glucose (74-99) mg/dL POC Glucose (mg/dL) 145 H (75-99) mg/dL Calcium (8.4-10.2) mg/dL Phosphorus (2.5-4.5) mg/dL Total Bilirubin (0.2-1.3) mg/dL AST (17-59) U/L Ammonia 69 H (<30) umol/L Albumin (3.5-5.0) g/dL Microbiology - Last 24 Hours (Table) 02/22/20 14:13 Blood Culture - Preliminary Blood No Growth after 96 hours Assessment and Plan Assessment: Left foot swelling, ecchymosis Plan: - Continue with conservative treatment at this time. Continue monitoring of the foot and elevation for swelling control. No plans for immediate surgical intervention. - We will repeat left foot and ankle x-rays today. - We will continue to follow patient while he remains inpatient and make recommendations as needed.
--- NOTE | 2020-02-27 15:11 | XR ---
Right ankle and right foot HISTORY: Ecchymosis 3 views of the right ankle, 3 views of the right foot submitted. Soft tissue swelling is noted about the right ankle extending into the right foot. Bone mineralizatio n is reduced, joint spaces and alignment are maintained. No fracture or dislocation. IMPRESSION: Osteopenia and soft tissue swelling.
[2020-02-27 17:05] LABS: Glucose,Whole Blood 158 mg/dL (75-99)
[2020-02-27 17:55] LABS: Glucose,Whole Blood 160 mg/dL (75-99)
[2020-02-27] MEDS: fentaNYL (PF) 1,000 MCG in SODIUM CHLORIDE 0.9% 80 ML IV SCH (18:45)
[2020-02-27] MEDS: MORPHINE SULFATE 2 MG/ML SYRINGE IVP PRN (21:25)
[2020-02-27 23:51] LABS: Glucose,Whole Blood 189 mg/dL (75-99)
[2020-02-28] MEDS: MORPHINE SULFATE 2 MG/ML SYRINGE IVP PRN (00:46)
[2020-02-28] MEDS: NOREPINEPHRINE 4 MG in SODIUM CHLORIDE 0.9% 250 ML IV SCH ×2 (03:12→19:30)
[2020-02-28] MEDS: PROPOFOL 1,000 MG in EMPTY BAG 1 BAG IV SCH ×3 (03:34→21:10)
[2020-02-28] MEDS: SODIUM CHLORIDE 0.9% 1,000 ML IV SCH ×2 (03:35→20:49)
[2020-02-28 04:52] LABS: Anisocytosis Marked; HCT 25.4 % (39.0-53.0); HGB 8.4 gm/dL (13.0-17.5); Hypochromasia Slight; MCH 36.5 pg (25.0-35.0); MCV 110.7 fL (80.0-100.0); Mean Platelet Volume 11.3; RBC 2.29 m/uL (4.30-5.90); RDW 24.2 % (11.5-15.5); WBC 8.9 k/uL (3.8-10.6)
[2020-02-28 04:53] LABS: Macrocytosis Marked; Platelet Count 69 k/uL (150-450)
[2020-02-28 05:00] LABS: Albumin 2.2 g/dL (3.5-5.0); Calcium 7.9 mg/dL (8.4-10.2); Potassium 2.8 mmol/L (3.5-5.1); Total Bilirubin 5.5 mg/dL (0.2-1.3)
[2020-02-28] MEDS ORDERED: Potassium Replacement Protocol 1 EACH MISC MISCELLANE PRN ×2 (05:11→13:10)
[2020-02-28 05:39] LABS: Glucose,Whole Blood 185 mg/dL (75-99)
[2020-02-28] MEDS: POTASSIUM BICARBONATE/CIT AC 20 MEQ TABLET.EFF NG-TUBE SCH ×2 (05:42→05:43)
[2020-02-28] MEDS: INSULIN ASPART (NovoLOG) 100 UNIT/ML VIAL SQ SCH ×3 (05:43→18:16)
--- NOTE | 2020-02-28 07:27 | XR ---
EXAMINATION TYPE: XR chest 1V portable DATE OF EXAM: 02/28/2020 COMPARISON: 02/27/2020 INDICATION: Tube placement TECHNIQUE: Single frontal view of the chest is obtained. FINDINGS: The heart size is normal. The pulmonary vasculature is prominent. There is perihilar infiltrates. Correlate for atelectasis. M overload may be present. There is some mild elevation of the left diaphragm. Consider some atelecta sis. An endotracheal tube is present with the tip above the rossi. Nasogastric tube transverses the thora x. IMPRESSION: 1. Increasing pulmonary vascular markings with perihilar infiltrates. Correlate for volume overload a nd atelectasis.
[2020-02-28 07:28] LABS: ABG Base Excess -0.2 mmol/L; ABG HCO3 24 mmol/L (21-25); ABG PCO2 35 mmHg (35-45); ABG PH 7.45 (7.35-7.45); ABG PO2 102 mmHg (83-108); ABG TCO2 25 mmol/L (19-24); Allen Test Performed? Yes
[2020-02-28 07:30] LABS: ABG Oxygen Saturation 98.2 % (94-97)
[2020-02-28] MEDS: IPRATROPIUM-ALBUTEROL 3 ML NEB INHALATION SCH ×4 (07:37→19:12)
[2020-02-28] MEDS: FUROSEMIDE 10 MG/ML 4 ML VIAL IV SCH ×2 (08:42→18:16)
--- NOTE | 2020-02-28 08:43 | P.PN ---
Subjective Progress Note Date: 02/28/20 Principal diagnosis: acute hypoxic respiratory failure secondary to aspiration pneumonia and acute sepsis, with subsequent alcoholic liver failure patient evaluated today, in the intensive care unit, intubated and mechanically ventilated. This morning's chest x-ray showing continued improvement. Ammonia level is 69 which actually is down compared to previous results. Chest x-ray was reviewed this morning significant improvement was noted. Blood gases also showed improvement in pulmonary, decreased PEEP to 8 little ammonia level was down to 69 Patient is currently being sedated P1 49 creatinine 1.46 Objective - Vital Signs Vital signs: Vital Signs Temp 97.5 F L 02/28/20 04:00 Pulse 92 02/28/20 07:55 Resp 26 H 02/28/20 07:00 BP 110/62 02/28/20 07:00 Pulse Ox 100 02/28/20 07:00 Intake & Output 02/27/20 02/28/20 02/28/20 18:59 06:59 18:59 Intake Total 9163.056 4293.148 178.784 Output Total 810 1665 45 Balance 677.269 474.148 133.784 Weight 89.1 kg Intake: IV 659 748 53 Normal Saline Pressure 39 33 3 Bag Piperacillin-Tazobactam 3 100 200 .375 gm In Sodium Chloride 0.9% 100 ml @ 25 mls/hr IVPB Q8HR [facility] Rx# :[id number] Sodium Chloride 0.9% 1, 520 515 50 000 ml @ 50 mls/hr IV . Q20H [facility] Rx#:[id number] Intake, IV Titration 168.269 176.148 80.784 Amount Propofol 1,000 mg In 168.269 176.148 80.784 Empty Bag 1 bag @ Titrate IV .Q0M [facility] Rx#: [id number] Tube Feeding 280 615 45 Other 380 600 Output: Urine 810 1665 45 Other: Voiding Method Indwelling Catheter Indwelling Catheter ABP, PAP, CO, CI - Last Documented Arterial Blood Pressure 135/48 - Exam General: intubated,mechanical ventilation HEENT: mild scleral icterus endotracheal tube oral gastric tube is intact Neck: [No adenopathy.] Cardiac: [Heart regular in rate and rhythm. normal S1 and S2, regular 6 systolic murmur Lungs: crackles and/or rhonchi bilateral Abdomen: [No mass. No organomegaly. Bowel sounds presnt and normoactive in all 4 quadrants.] Extremes: 2+ bipedal edema, no cyanosis, deformity noted dorsal aspect right foot : [] Musculoskeletal: [No joint erythema, edema or tenderness.] Skin: [No rash.] Neurologic: cannot be assessed, fully sedated, on mechanical ventilation Lymphatic: [No adenopathy.] - Labs CBC & Chem 7: 02/28/20 04:40 02/28/20 04:40 Labs: Abnormal Lab Results - Last 24 Hours (Table) 02/27/20 02/27/20 02/27/20 Range/Units 08:30 12:56 17:04 RBC (4.30-5.90) m/uL Hgb (13.0-17.5) gm/dL Hct (39.0-53.0) % MCV (80.0-100.0) fL MCH (25.0-35.0) pg RDW (11.5-15.5) % Plt Count (150-450) k/uL Macrocytosis ABG Total CO2 (19-24) mmol/L ABG O2 Saturation (94-97) % Sodium (137-145) mmol/L Potassium (3.5-5.1) mmol/L Chloride (98-107) mmol/L BUN (9-20) mg/dL Creatinine (0.66-1.25) mg/dL Glucose (74-99) mg/dL POC Glucose (mg/dL) 145 H 158 H (75-99) mg/dL Calcium (8.4-10.2) mg/dL Total Bilirubin (0.2-1.3) mg/dL AST (17-59) U/L Ammonia 69 H (<30) umol/L Total Protein (6.3-8.2) g/dL Albumin (3.5-5.0) g/dL 02/27/20 02/27/20 02/28/20 Range/Units 17:53 23:49 04:40 RBC 2.29 L (4.30-5.90) m/uL Hgb 8.4 L (13.0-17.5) gm/dL Hct 25.4 L (39.0-53.0) % MCV 110.7 H (80.0-100.0) fL MCH 36.5 H (25.0-35.0) pg RDW 24.2 H (11.5-15.5) % Plt Count 69 L (150-450) k/uL Macrocytosis Marked A ABG Total CO2 (19-24) mmol/L ABG O2 Saturation (94-97) % Sodium (137-145) mmol/L Potassium (3.5-5.1) mmol/L Chloride (98-107) mmol/L BUN (9-20) mg/dL Creatinine (0.66-1.25) mg/dL Glucose (74-99) mg/dL POC Glucose (mg/dL) 160 H 189 H (75-99) mg/dL Calcium (8.4-10.2) mg/dL Total Bilirubin (0.2-1.3) mg/dL AST (17-59) U/L Ammonia (<30) umol/L Total Protein (6.3-8.2) g/dL Albumin (3.5-5.0) g/dL 02/28/20 02/28/20 02/28/20 Range/Units 04:40 04:40 05:37 RBC (4.30-5.90) m/uL Hgb (13.0-17.5) gm/dL Hct (39.0-53.0) % MCV (80.0-100.0) fL MCH (25.0-35.0) pg RDW (11.5-15.5) % Plt Count (150-450) k/uL Macrocytosis ABG Total CO2 (19-24) mmol/L ABG O2 Saturation (94-97) % Sodium 150 H (137-145) mmol/L Potassium 2.8 L (3.5-5.1) mmol/L Chloride 123 H (98-107) mmol/L BUN 61 H (9-20) mg/dL Creatinine 1.43 H (0.66-1.25) mg/dL Glucose 153 H (74-99) mg/dL POC Glucose (mg/dL) 185 H (75-99) mg/dL Calcium 7.9 L (8.4-10.2) mg/dL Total Bilirubin 5.5 H (0.2-1.3) mg/dL AST 116 H (17-59) U/L Ammonia 73 H (<30) umol/L Total Protein 6.0 L (6.3-8.2) g/dL Albumin 2.2 L (3.5-5.0) g/dL 02/28/20 Range/Units 07:23 RBC (4.30-5.90) m/uL Hgb (13.0-17.5) gm/dL Hct (39.0-53.0) % MCV (80.0-100.0) fL MCH (25.0-35.0) pg RDW (11.5-15.5) % Plt Count (150-450) k/uL Macrocytosis ABG Total CO2 25 H (19-24) mmol/L ABG O2 Saturation 98.2 H (94-97) % Sodium (137-145) mmol/L Potassium (3.5-5.1) mmol/L Chloride (98-107) mmol/L BUN (9-20) mg/dL Creatinine (0.66-1.25) mg/dL Glucose (74-99) mg/dL POC Glucose (mg/dL) (75-99) mg/dL Calcium (8.4-10.2) mg/dL Total Bilirubin (0.2-1.3) mg/dL AST (17-59) U/L Ammonia (<30) umol/L Total Protein (6.3-8.2) g/dL Albumin (3.5-5.0) g/dL Microbiology - Last 24 Hours (Table) 02/22/20 14:13 Blood Culture - Preliminary Blood No Growth after 120 hours Assessment and Plan (1) Sepsis with acute hypoxic respiratory failure and septic shock Current Visit: Yes Status: Acute Code(s): A41.9 - SEPSIS, UNSPECIFIED ORGANISM; R65.21 - SEVERE SEPSIS WITH SEPTIC SHOCK; J96.01 - ACUTE RESPIRATORY FAILURE WITH HYPOXIA SNOMED Code(s): 165643411 (2) Serum ammonia increased Current Visit: Yes Status: Acute Code(s): E72.20 - DISORDER OF UREA CYCLE METABOLISM, UNSPECIFIED SNOMED Code(s): 8869355 (3) Anemia due to blood loss, acute Current Visit: Yes Status: Acute Code(s): D62 - ACUTE POSTHEMORRHAGIC ANEMIA SNOMED Code(s): 149129865 (4) Alcoholic peripheral neuropathy Current Visit: Yes Status: Acute Code(s): G62.1 - ALCOHOLIC POLYNEUROPATHY SNOMED Code(s): 1026564 (5) Acute alcoholic hepatitis Current Visit: Yes Status: Acute Code(s): K70.10 - ALCOHOLIC HEPATITIS WITHOUT ASCITES SNOMED Code(s): 0999578 (6) Ascites Current Visit: Yes Status: Acute Code(s): R18.8 - OTHER ASCITES SNOMED Code(s): 688413338 (7) Bicytopenia Current Visit: Yes Status: Acute Code(s): D75.89 - OTHER SPECIFIED DISEASES OF BLOOD AND BLOOD-FORMING ORGANS SNOMED Code(s): 40604729 (8) Foot swelling Current Visit: Yes Status: Acute Priority: Medium Code(s): M79.89 - OTHER SPECIFIED SOFT TISSUE DISORDERS SNOMED Code(s): 378479362 (9) GI hemorrhage Current Visit: Yes Status: Acute Code(s): K92.2 - GASTROINTESTINAL HEMORRHAGE, UNSPECIFIED SNOMED Code(s): 38521780 (10) Hepatic encephalopathy Current Visit: Yes Status: Acute Code(s): K72.90 - HEPATIC FAILURE, UNSPECIFIED WITHOUT COMA SNOMED Code(s): 30476241 (11) Liver cirrhosis Current Visit: Yes Status: Acute Code(s): K74.60 - UNSPECIFIED CIRRHOSIS OF LIVER SNOMED Code(s): 42168835 (12) Pneumonia Current Visit: Yes Status: Acute Code(s): J18.9 - PNEUMONIA, UNSPECIFIED ORGANISM SNOMED Code(s): 909928149 (13) Sepsis Current Visit: Yes Status: Acute Code(s): A41.9 - SEPSIS, UNSPECIFIED ORGANISM SNOMED Code(s): 46503016 Plan: continue ventilatory support Continue sedation Patient is presently on norepinephrine Patient has on empiric IV antibiotics Zosyn Monitoring ammonia levels which is recently improving Monitoring coagulopathy and liver profile Orthopedics reevaluated right foot and ankle Patient appears improved today however prognosis is still guarded, Time with Patient: Greater than 30
[2020-02-28] MEDS: PIPERACILLIN-TAZOBACTAM 3.375 GM in SODIUM CHLORIDE 0.9% 100 ML IVPB SCH ×2 (08:49→18:18)
[2020-02-28] MEDS: methylPREDNISolone SOD SUCCI 40 MG/ML 1 ML VIAL IV SCH ×2 (08:49→18:26)
[2020-02-28] MEDS: PANTOPRAZOLE 40 MG/10 ML VIAL IVP SCH ×2 (08:50→21:06)
--- NOTE | 2020-02-28 08:52 | P.PN ---
Subjective Progress Note Date: 02/27/20 Principal diagnosis: Alcoholic hepatitis, alcoholic cirrhosis of the liver with ascites, hepatic encephalopathy, elevated liver enzymes Patient is seen in the intensive care unit where he is currently intubated and sedated. The patient did better with bleeding control today. No signs or symptoms of GI bleeding. 2 feeds were held yesterday but restarted today. Objective - Vital Signs Vital signs: Vital Signs Temp 98.2 F 02/27/20 08:00 Pulse 84 02/27/20 08:26 Resp 26 H 02/27/20 08:00 BP 106/61 02/27/20 08:00 Pulse Ox 100 02/27/20 08:00 Intake & Output 02/26/20 02/27/20 02/27/20 18:59 06:59 18:59 Intake Total 4575.136 1642.975 131.489 Output Total 980 1841 40 Balance 580.171 -779.025 91.489 Weight 91 kg 91.8 kg Intake: IV 736 736 53 Normal Saline Pressure 36 36 3 Bag Piperacillin-Tazobactam 3 100 100 .375 gm In Sodium Chloride 0.9% 100 ml @ 25 mls/hr IVPB Q8HR [facility] Rx# :[id number] Sodium Chloride 0.9% 1, 600 600 50 000 ml @ 50 mls/hr IV . Q20H [facility] Rx#:[id number] Intake, IV Titration 264.171 265.975 78.489 Amount Norepinephrine 4 mg In 30.683 28.938 Sodium Chloride 0.9% 250 ml @ 0.05 MCG/KG/MIN 15. 338 mls/hr IV .[id number] [facility] Rx#:[id number] Piperacillin-Tazobactam 3 100 .375 gm In Sodium Chloride 0.9% 100 ml @ 25 mls/hr IVPB Q8HR [facility] Rx# :[id number] Propofol 1,000 mg In 33.488 237.037 78.489 Empty Bag 1 bag @ Titrate IV .Q0M [facility] Rx#: [id number] fentaNYL (PF) 1,000 mcg 100 In Sodium Chloride 0.9% 80 ml @ 50 MCG/HR 5 mls/ hr IV .Q20H [facility] Rx#: [id number] Tube Feeding 440 Other 120 60 Output: Urine 980 641 40 Stool 1200 Other: Voiding Method Indwelling Catheter Indwelling Catheter ABP, PAP, CO, CI - Last Documented Arterial Blood Pressure 106/48 - Exam On physical examination, patient appears comfortable in no apparent distress. HEAD: Normocephalic, atraumatic. EYES: Scleral icterus. No conjunctival injection. MOUTH: No lesions, tongue midline, endotracheal tube in place. NECK: Trachea midline, no gross abnormalities. CHEST: Coarse respiratory noises in all lung soni on mechanical ventilation. ABDOMEN: Soft, obese. Bowel sounds are positive. No organomegaly. No guarding or rigidity. EXTREMITIES: Bilateral pedal edema. SKIN: No rashes, jaundice. NEUROLOGIC: Intubated and sedated. - Labs CBC & Chem 7: 02/28/20 04:40 02/28/20 04:40 Labs: Abnormal Lab Results - Last 24 Hours (Table) 02/26/20 02/26/20 02/26/20 Range/Units 08:43 16:16 18:57 RBC (4.30-5.90) m/uL Hgb (13.0-17.5) gm/dL Hct (39.0-53.0) % MCV (80.0-100.0) fL RDW (11.5-15.5) % Plt Count (150-450) k/uL Macrocytosis ABG pCO2 (35-45) mmHg ABG pO2 68 L (83-108) mmHg ABG O2 Saturation 93.1 L (94-97) % Sodium (137-145) mmol/L Chloride (98-107) mmol/L BUN (9-20) mg/dL Creatinine (0.66-1.25) mg/dL Glucose (74-99) mg/dL POC Glucose (mg/dL) 151 H 150 H (75-99) mg/dL Calcium (8.4-10.2) mg/dL Phosphorus (2.5-4.5) mg/dL Total Bilirubin (0.2-1.3) mg/dL AST (17-59) U/L Albumin (3.5-5.0) g/dL 02/26/20 02/27/20 02/27/20 Range/Units 23:41 04:40 04:40 RBC 2.43 L (4.30-5.90) m/uL Hgb 8.4 L (13.0-17.5) gm/dL Hct 26.2 L (39.0-53.0) % MCV 108.0 H (80.0-100.0) fL RDW 23.7 H (11.5-15.5) % Plt Count 71 L (150-450) k/uL Macrocytosis Marked A ABG pCO2 (35-45) mmHg ABG pO2 (83-108) mmHg ABG O2 Saturation (94-97) % Sodium 146 H (137-145) mmol/L Chloride 120 H (98-107) mmol/L BUN 49 H (9-20) mg/dL Creatinine 1.46 H (0.66-1.25) mg/dL Glucose 133 H (74-99) mg/dL POC Glucose (mg/dL) 148 H (75-99) mg/dL Calcium 7.8 L (8.4-10.2) mg/dL Phosphorus 4.6 H (2.5-4.5) mg/dL Total Bilirubin 5.8 H (0.2-1.3) mg/dL AST 130 H (17-59) U/L Albumin 2.3 L (3.5-5.0) g/dL 02/27/20 02/27/20 Range/Units 07:42 07:59 RBC (4.30-5.90) m/uL Hgb (13.0-17.5) gm/dL Hct (39.0-53.0) % MCV (80.0-100.0) fL RDW (11.5-15.5) % Plt Count (150-450) k/uL Macrocytosis ABG pCO2 34 L (35-45) mmHg ABG pO2 119 H (83-108) mmHg ABG O2 Saturation 99.2 H (94-97) % Sodium (137-145) mmol/L Chloride (98-107) mmol/L BUN (9-20) mg/dL Creatinine (0.66-1.25) mg/dL Glucose (74-99) mg/dL POC Glucose (mg/dL) 152 H (75-99) mg/dL Calcium (8.4-10.2) mg/dL Phosphorus (2.5-4.5) mg/dL Total Bilirubin (0.2-1.3) mg/dL AST (17-59) U/L Albumin (3.5-5.0) g/dL Microbiology - Last 24 Hours (Table) 02/22/20 14:13 Blood Culture - Preliminary Blood No Growth after 96 hours Assessment and Plan (1) Acute alcoholic hepatitis Narrative/Plan: 54-year-old male with known history of alcohol abuse presenting to the hospital with altered mental status. Likely multifactorial given suspected underlying decompensated cirrhosis, acute alcoholic hepatitis and concern for aspiration pneumonia and sepsis. Currently receiving treatment in the ICU, he remains on broad-spectrum antibiotic therapy and mechanically ventilated. Current Visit: Yes Status: Acute Code(s): K70.10 - ALCOHOLIC HEPATITIS WITHOUT ASCITES SNOMED Code(s): 4233174 (2) Liver cirrhosis Current Visit: Yes Status: Acute Code(s): K74.60 - UNSPECIFIED CIRRHOSIS OF LIVER SNOMED Code(s): 98499185 (3) Ascites Current Visit: Yes Status: Acute Code(s): R18.8 - OTHER ASCITES SNOMED Code(s): 580833490 (4) Hepatic encephalopathy Current Visit: Yes Status: Acute Code(s): K72.90 - HEPATIC FAILURE, UNSPECIFIED WITHOUT COMA SNOMED Code(s): 77593472 (5) Bicytopenia Narrative/Plan: Patient anemic and thrombocytopenic likely related to chronic alcohol use. Stool testing was positive for blood but patient has no signs or symptoms of GI bleeding with normal brown stool noted and fecal management system. Hemoglobin has remained stable. Current Visit: Yes Status: Acute Code(s): D75.89 - OTHER SPECIFIED DISEASES OF BLOOD AND BLOOD-FORMING ORGANS SNOMED Code(s): 34863341 Plan: Supportive care Nothing by mouth, okay for tube feeds as tolerated Continue management per feeder operator automatic service, patient currently intubated and sed ated Continue broad-spectrum antibiotic therapy Continue lactulose 4 times a day Xifaxan twice daily Can consider paracentesis when patient is medically stable Patient is on diuretic therapy with Lasix 3 times a day and Aldactone 3 times a day Alcohol abstinence Thank you for allowing us to participate in the care of the patient we will continue to follow
[2020-02-28] MEDS: CHLORHEXIDINE GLUCONATE 15 ML CUP MUCOUS MEM SCH ×2 (08:53→21:06)
[2020-02-28] MEDS: LACTULOSE 20 GM/30 ML CUP PO SCH ×4 (08:54→21:06)
[2020-02-28] MEDS: SPIRONOLACTONE 25 MG TAB PO SCH ×3 (08:55→21:07)
[2020-02-28 09:15] LABS: INR 1.5 (<1.2); Prothrombin Time 14.4 sec (9.0-12.0)
--- NOTE | 2020-02-28 09:32 | P.PN ---
Subjective Progress Note Date: 02/28/20 This patient is a 54-year-old male that orthopedics is following for right foot swelling, ecchymosis. Foot x-rays taken on 02/22/20 showed no signs of fracture or dislocation. X-rays of the right foot and ankle were repeated 02/27/20 with no evidence of fracture or dislocation. There have also been no signs of infection. Patient is examined bedside this morning. He remains intubated. There have been no reported changes in the right foot. Objective - Vital Signs Vital signs: Vital Signs Temp 98.2 F 02/28/20 08:00 Pulse 90 02/28/20 09:00 Resp 28 H 02/28/20 09:00 BP 113/67 02/28/20 09:00 Pulse Ox 100 02/28/20 09:00 Intake & Output 02/27/20 02/28/20 02/28/20 18:59 06:59 18:59 Intake Total 1423.088 6331.148 663.566 Output Total 810 1665 170 Balance 677.269 474.148 493.566 Weight 89.1 kg Intake: IV 659 748 259 Normal Saline Pressure 39 33 9 Bag Piperacillin-Tazobactam 3 100 200 100 .375 gm In Sodium Chloride 0.9% 100 ml @ 25 mls/hr IVPB Q8HR [facility] Rx# :[id number] Sodium Chloride 0.9% 1, 520 515 150 000 ml @ 50 mls/hr IV . Q20H [facility] Rx#:[id number] Intake, IV Titration 168.269 176.148 114.566 Amount Propofol 1,000 mg In 168.269 176.148 114.566 Empty Bag 1 bag @ Titrate IV .Q0M [facility] Rx#: [id number] Tube Feeding 280 615 90 Other 380 600 200 Output: Urine 810 1665 170 Other: Voiding Method Indwelling Catheter Indwelling Catheter Indwelling Catheter ABP, PAP, CO, CI - Last Documented Arterial Blood Pressure 130/49 - Exam On examination, the patient is currently intubated. Bilateral feet are currently in padded boots. On inspection of the right foot, there is diffuse swelling and ecchymosis of the foot and ankle. This appears to be resolving and stable. There is also localized swelling at the dorsum of the foot at the location of the 3-5th metatarsal heads. No wounds and skin is intact. No erythema or warmth of the foot. No signs of infection. The right foot is warm and well-perfused, dorsalis pedis pulse +2. No swelling or erythema about the calf. No issues with PROM of the toes or ankle. Motor and sensory function unable to be assessed. - Labs CBC & Chem 7: 02/28/20 04:40 02/28/20 08:35 Labs: Abnormal Lab Results - Last 24 Hours (Table) 02/27/20 02/27/20 02/27/20 Range/Units 12:56 17:04 17:53 RBC (4.30-5.90) m/uL Hgb (13.0-17.5) gm/dL Hct (39.0-53.0) % MCV (80.0-100.0) fL MCH (25.0-35.0) pg RDW (11.5-15.5) % Plt Count (150-450) k/uL Macrocytosis PT (9.0-12.0) sec INR (<1.2) ABG Total CO2 (19-24) mmol/L ABG O2 Saturation (94-97) % Sodium (137-145) mmol/L Potassium (3.5-5.1) mmol/L Chloride (98-107) mmol/L BUN (9-20) mg/dL Creatinine (0.66-1.25) mg/dL Glucose (74-99) mg/dL POC Glucose (mg/dL) 145 H 158 H 160 H (75-99) mg/dL Calcium (8.4-10.2) mg/dL Total Bilirubin (0.2-1.3) mg/dL AST (17-59) U/L Ammonia (<30) umol/L Total Protein (6.3-8.2) g/dL Albumin (3.5-5.0) g/dL 02/27/20 02/28/20 02/28/20 Range/Units 23:49 04:40 04:40 RBC 2.29 L (4.30-5.90) m/uL Hgb 8.4 L (13.0-17.5) gm/dL Hct 25.4 L (39.0-53.0) % MCV 110.7 H (80.0-100.0) fL MCH 36.5 H (25.0-35.0) pg RDW 24.2 H (11.5-15.5) % Plt Count 69 L (150-450) k/uL Macrocytosis Marked A PT (9.0-12.0) sec INR (<1.2) ABG Total CO2 (19-24) mmol/L ABG O2 Saturation (94-97) % Sodium 150 H (137-145) mmol/L Potassium 2.8 L (3.5-5.1) mmol/L Chloride 123 H (98-107) mmol/L BUN 61 H (9-20) mg/dL Creatinine 1.43 H (0.66-1.25) mg/dL Glucose 153 H (74-99) mg/dL POC Glucose (mg/dL) 189 H (75-99) mg/dL Calcium 7.9 L (8.4-10.2) mg/dL Total Bilirubin 5.5 H (0.2-1.3) mg/dL AST 116 H (17-59) U/L Ammonia (<30) umol/L Total Protein 6.0 L (6.3-8.2) g/dL Albumin 2.2 L (3.5-5.0) g/dL 02/28/20 02/28/20 02/28/20 Range/Units 04:40 05:37 07:23 RBC (4.30-5.90) m/uL Hgb (13.0-17.5) gm/dL Hct (39.0-53.0) % MCV (80.0-100.0) fL MCH (25.0-35.0) pg RDW (11.5-15.5) % Plt Count (150-450) k/uL Macrocytosis PT (9.0-12.0) sec INR (<1.2) ABG Total CO2 25 H (19-24) mmol/L ABG O2 Saturation 98.2 H (94-97) % Sodium (137-145) mmol/L Potassium (3.5-5.1) mmol/L Chloride (98-107) mmol/L BUN (9-20) mg/dL Creatinine (0.66-1.25) mg/dL Glucose (74-99) mg/dL POC Glucose (mg/dL) 185 H (75-99) mg/dL Calcium (8.4-10.2) mg/dL Total Bilirubin (0.2-1.3) mg/dL AST (17-59) U/L Ammonia 73 H (<30) umol/L Total Protein (6.3-8.2) g/dL Albumin (3.5-5.0) g/dL 02/28/20 Range/Units 08:35 RBC (4.30-5.90) m/uL Hgb (13.0-17.5) gm/dL Hct (39.0-53.0) % MCV (80.0-100.0) fL MCH (25.0-35.0) pg RDW (11.5-15.5) % Plt Count (150-450) k/uL Macrocytosis PT 14.4 H (9.0-12.0) sec INR 1.5 H (<1.2) ABG Total CO2 (19-24) mmol/L ABG O2 Saturation (94-97) % Sodium (137-145) mmol/L Potassium (3.5-5.1) mmol/L Chloride (98-107) mmol/L BUN (9-20) mg/dL Creatinine (0.66-1.25) mg/dL Glucose (74-99) mg/dL POC Glucose (mg/dL) (75-99) mg/dL Calcium (8.4-10.2) mg/dL Total Bilirubin (0.2-1.3) mg/dL AST (17-59) U/L Ammonia (<30) umol/L Total Protein (6.3-8.2) g/dL Albumin (3.5-5.0) g/dL Microbiology - Last 24 Hours (Table) 02/22/20 14:13 Blood Culture - Preliminary Blood No Growth after 120 hours Assessment and Plan Assessment: Right foot swelling, ecchymosis Plan: - Continue with conservative treatment at this time. Continue monitoring of the right foot and elevation for swelling control. No plans for immediate surgical intervention. - We will continue to follow patient while he remains inpatient and make recommendations as needed.
[2020-02-28 12:03] LABS: Glucose,Whole Blood 156 mg/dL (75-99)
[2020-02-28] MEDS: fentaNYL (PF) 1,000 MCG in SODIUM CHLORIDE 0.9% 80 ML IV SCH (13:11)
--- NOTE | 2020-02-28 13:34 | P.PN ---
Subjective Progress Note Date: 02/28/20 Principal diagnosis: Acute hypoxic respiratory failure secondary to aspiration pneumonia, and acute sepsis. This is a 54-year-old white male, history of alcohol abuse, patient was brought into the ER with change in mental status according to EMS. Patient could not give any history, he was a very poor historian upon arrival to the ER. Patient is supposedly a daily drinker, however from my review of the chart, I saw this patient back on 11/11/19, patient presented back then with multiple posterior lateral rib fractures on the right. Apparently he fell in his bathroom, and landed on the side of the top sustaining multiple rib fractures. Patient sustained rib fractures of 910 and 11 ribs. Patient is also known to have history of severe emphysema/COPD. He is legally blind. He has history of pericarditis, anxiety, and history of degenerative joint disease. Patient was discharged home on 11/12/19. Drug screen in the ER was positive for tricyclic antidepressants and positive for benzodiazepines. Rest of the drug screen was basically negative. ABG in the ER showed a pO2 of 63 pCO2 of 29 pH of 7.49. Patient was also noted to have elevated INR of 3.7. Low hemoglobin of 7.0 although his baseline hemoglobin from 2 months ago was 15.1. Ammonia level was 91. Total bilirubin was 14.9, and his liver enzymes were a bit elevated. Normal amylase and lipase were noted. Gallbladder ultrasound showed abdominal ascites. Chest x-ray showed bilateral diffuse infiltrates. Patient was presumed septic upon presentation, received fluid boluses of 2500 ML's. Patient was found to have hepatic encephalopathy liver failure, bilateral pneumonia, GI hemorrhage and sepsis. Early this morning, patient was intubated, placed on mechanical ventilation, and he was aware of the patient since admission. Presently the patient is on assist control rate of 28 tidal volume is 500 FiO2 is 100% PEEP of 5. ABG showed a pO2 of 170 pCO2 of 31 pH of 7.46. Hence I cut down the FiO2 to 50%, increased the PEEP to 8, cut down the tidal volume to 450, and decrease the respiratory rate to 26. Patient is on Sandostatin for his GI bleeding, and he is yet to be seen by gastroenterology on consultation is also on Protonix. He is on lactulose for his elevated ammonia level. And he is empirically on Zosyn for presumptive aspiration pneumonia. Echocardiogram showed evidence of good LV function. And mild valvular heart disease. BNP level was borderline elevated at 910 Patient was reevaluated today on 02/24/20, remains on mechanical ventilation. He is presently on assist control rate of 26 tidal volume is 450 FiO2 of 60% and PEEP of 8. However I increased his PEEP to 12 and cut down his FiO2 to 50%. At night the patient developed worsening agitation, and Stacking his breaths, was not synchronous with mechanical ventilation, hence had to place the patient on Nimbex. Today I plan to discontinue Nimbex and place him on fentanyl 25 g per hour. Patient will be started on tube feeding, and I cut down his IV fluid to 50 MLS per hour. Remains on propofol at 60 mcg/kg/m, Nimbex which will be discontinued, but creatinine which was discontinued this morning, and no repinephrine at 0.06 mcg/kg/m. Enteral feeding to be started today by boat oar maker. Patient remains on antibiotics, remains on lactulose for his elevated ammonia level which is 80 today. And he remains on Protonix. Chest x- ray showed more consolidation noted bilaterally in both lungs more so in the left lung. Bilateraldisease is noted consistent with aspiration pneumonia. Sputum cultures and blood cultures so far remain on diagnostic. ABG today showed a pO2 of 67 pCO2 of 39 pH of 7.33. WBC count is 14.7 hemoglobin is 8.6 platelets are 66,000 and INR is 2.1. Electrolytes are basically normal renal profile showed beer of 25 creatinine 0.94. Patient was reevaluated today on 02/25/20, remains in the intensive care unit, remains on mechanical ventilation. His ventilator settings are assist control rate of 26, tidal volume is 450 FiO2 is 50% and PEEP is at 12. ABG showed a pO2 of 65 pCO2 of 37 pH of 7.36, hence no change was made in the ventilator settings. Patient remains on norepinephrine at 0.09 mcg/kg/m, propofol at 45 mcg/kg/m, fentanyl at 0.5 mcg/kg/h. Remains on enteral feeding at 30 MLS per hour goal is 45. Remains on Zosyn for empiric coverage of aspiration pneumonia. Remains on lactulose and the dose was increased to 45 ML 4 times a day, and added Xifaxan at 550 mg twice a day. His lactulose does not seem to be inducing enough diarrhea did get his ammonia level down. Continues to have significantly elevated ammonia level in spite of lactulose for the last 2 days. Patient continues to have ascites. And no plans for paracentesis as recommended by gastroenterology at this point. Chest x-ray showed very minimal improvement if any in his bilateral infiltrates. The bilateral infiltrates are suggestive of aspiration pneumonia. Obviously the patient is known to have history of alcoholism, and he presented with alcoholic liver hepatitis, and hepatic en cephalopathy. Labs today were all reviewed WBC is 14.1 hemoglobin is 9.4 platelets are 75,000 INR is 1.7. Electrolytes are unremarkable except for low potassium of 3.4 BUN of 27 creatinine 1.32. Liver enzymes are borderline elevated. Total bilirubin is improving down to 8.9 today. Albumin is 2.3 Patient was reevaluated today on 02/26/20, remains in the ICU, intubated, mechanically ventilated. Patient is on assist control rate of 26 tidal volume 450 FiO2 50% and PEEP is 12. Chest x-ray is showing definite improvement, however his ABG is basically about the same with a pO2 of 68 pCO2 of 38 and pH of 7.38. His ammonia level is on the rise in spite of the fact that the patient is on relatively high dose of lactulose and he is also on Xifaxan. Patient remains on propofol at 40 mcg/kg/m, fentanyl at 0.5 mcg/kg/h, he is on very small dose of norepinephrine at 0.01 mcg/kg/m, IV fluid is at KVO, and he is also on Zosyn for presumptive aspiration pneumonia. Remains on diuretics in the form of Lasix, Aldactone. His Lasix was increased to 40 mg 3 times a day, and he is on Aldactone via nasogastric tube. Patient was taken off sedation today, however he became extremely agitated, tachypneic, tachycardic, hence we had to place him back on sedation and continued assist control mode of mechanical ventilation. Chest x-ray again showed improvement. WBC count today is 11 hemoglobin is 8.5 his INR is 1.7 basic metabolic profile is improving, creatinine however is up to 1.40, and the patient obviously developed acute kidney injury. This could very well be related to his sepsis, and related to his hypotension requiring norepinephrine. Cultures including blood cultures and sputum cultures have been negative. Patient was reevaluated today in the ICU, remains intubated and mechanically ventilated. His ventilator settings are assist control rate of 26 tidal volume is 450 FiO2 is 50% and PEEP is at 12 chest x-ray showed dramatic improvement. His ABG is significantly improved hence I recommended cutting down the PEEP to 8. His ammonia level is significantly improved today, it is down to 69. Sodium seems to be creeping up a little bit, and I recommended free water flushes via orogastric tube. Patient is on propofol at 50 mcg/kg/m, his tube feeding is presently on hold because of increased residual. Patient was given a sedation holiday, however when he went off propofol, the patient became extremely agitated, restless, biting on the endotracheal tube, tachycardic, tachypneic, and was extremely agitated. Hence I recommended placing him back on propofol, and not quite ready for weaning. Labs were all reviewed today. And addressed accordingly including his elevated sodium and elevated BUN of 49 creatinine 1.46. Chest x-ray showed significant improvement in his bilateral infiltrates/aspiration pneumonia. Patient was reevaluated today on 02/28/20, remains in the ICU, intubated and mechanically ventilated. His ventilator settings are assist control rate of 26 FiO2 50% tidal volume of 450 PEEP is at 8 and today I cut down his FiO2 to 45% and kept him on a PEEP of 8. ABG this morning showed a pO2 of 102 pCO2 of 35 pH of 7.45. Patient has significantly elevated sodium today of 150 potassium is low at 2.8 ammonia level remains high at 73. Patient is not requiring any pressors, he is on propofol at 34 mcg/kg/m. Patient is on enteral feeding. I do plan to wean the patient off propofol sometime today, and assess mental status again. This was attempted yesterday, but the patient didn't do well, I have also recommended free water flushes to correct his hyper natremia. Objective - Vital Signs Vital signs: Vital Signs Temp 98.2 F 02/28/20 12:00 Pulse 99 02/28/20 13:00 Resp 8 L 02/28/20 13:00 BP 127/78 02/28/20 13:00 Pulse Ox 100 02/28/20 13:00 Intake & Output 02/27/20 02/28/20 02/28/20 18:59 06:59 18:59 Intake Total 0161.639 4675.148 1301.405 Output Total 810 1665 1785 Balance 677.269 474.148 -483.595 Weight 89.1 kg Intake: IV 659 748 468 Normal Saline Pressure 39 33 68 Bag Piperacillin-Tazobactam 3 100 200 100 .375 gm In Sodium Chloride 0.9% 100 ml @ 25 mls/hr IVPB Q8HR [facility] Rx# :[id number] Sodium Chloride 0.9% 1, 520 515 300 000 ml @ 50 mls/hr IV . Q20H [facility] Rx#:[id number] Intake, IV Titration 168.269 176.148 153.405 Amount Propofol 1,000 mg In 168.269 176.148 153.405 Empty Bag 1 bag @ Titrate IV .Q0M [facility] Rx#: [id number] Tube Feeding 280 615 180 Other 380 600 500 Output: Urine 810 1665 585 Stool 1200 Other: Voiding Method Indwelling Catheter Indwelling Catheter Indwelling Catheter ABP, PAP, CO, CI - Last Documented Arterial Blood Pressure 148/57 - Exam Physical Exam: Revealed 54-year-old white male on mechanical ventilation, sedated, on propofol, and on fentanyl, Head: Atraumatic, normocephalic. HEENT:[PERRLA, EOMI, positive icterus. No neck masses, no JVD, no stridor, endotracheal tube and orogastric tube are intact. Chest: Crackles and rhonchi bilaterally. No wheezes. Symmetrical chest expansion.] Cardiac Exam: [Normal S1 and S2, no S3 gallop, 2/6 systolic murmur thought the precordium.] Abdomen: [Soft, nontender, suspect positive ascites, no rebound, no guarding, positive bowel sounds. Extremities: [No clubbing, 2+ bipedal edema, no cyanosis.] Deformity noted on the dorsal aspect of the right foot, secondary to trauma Neurological Exam: Cannot be assessed, patient is fully sedated, on mechanical ventilation. Psychiatric: Could not be assessed. Skin: No rashes. - Labs CBC & Chem 7: 02/28/20 04:40 02/28/20 08:35 Labs: Abnormal Lab Results - Last 24 Hours (Table) 02/27/20 02/27/20 02/27/20 Range/Units 17:04 17:53 23:49 RBC (4.30-5.90) m/uL Hgb (13.0-17.5) gm/dL Hct (39.0-53.0) % MCV (80.0-100.0) fL MCH (25.0-35.0) pg RDW (11.5-15.5) % Plt Count (150-450) k/uL Macrocytosis PT (9.0-12.0) sec INR (<1.2) ABG Total CO2 (19-24) mmol/L ABG O2 Saturation (94-97) % Sodium (137-145) mmol/L Potassium (3.5-5.1) mmol/L Chloride (98-107) mmol/L BUN (9-20) mg/dL Creatinine (0.66-1.25) mg/dL Glucose (74-99) mg/dL POC Glucose (mg/dL) 158 H 160 H 189 H (75-99) mg/dL Calcium (8.4-10.2) mg/dL Total Bilirubin (0.2-1.3) mg/dL AST (17-59) U/L Ammonia (<30) umol/L Total Protein (6.3-8.2) g/dL Albumin (3.5-5.0) g/dL 02/28/20 02/28/20 02/28/20 Range/Units 04:40 04:40 04:40 RBC 2.29 L (4.30-5.90) m/uL Hgb 8.4 L (13.0-17.5) gm/dL Hct 25.4 L (39.0-53.0) % MCV 110.7 H (80.0-100.0) fL MCH 36.5 H (25.0-35.0) pg RDW 24.2 H (11.5-15.5) % Plt Count 69 L (150-450) k/uL Macrocytosis Marked A PT (9.0-12.0) sec INR (<1.2) ABG Total CO2 (19-24) mmol/L ABG O2 Saturation (94-97) % Sodium 150 H (137-145) mmol/L Potassium 2.8 L (3.5-5.1) mmol/L Chloride 123 H (98-107) mmol/L BUN 61 H (9-20) mg/dL Creatinine 1.43 H (0.66-1.25) mg/dL Glucose 153 H (74-99) mg/dL POC Glucose (mg/dL) (75-99) mg/dL Calcium 7.9 L (8.4-10.2) mg/dL Total Bilirubin 5.5 H (0.2-1.3) mg/dL AST 116 H (17-59) U/L Ammonia 73 H (<30) umol/L Total Protein 6.0 L (6.3-8.2) g/dL Albumin 2.2 L (3.5-5.0) g/dL 02/28/20 02/28/20 02/28/20 Range/Units 05:37 07:23 08:35 RBC (4.30-5.90) m/uL Hgb (13.0-17.5) gm/dL Hct (39.0-53.0) % MCV (80.0-100.0) fL MCH (25.0-35.0) pg RDW (11.5-15.5) % Plt Count (150-450) k/uL Macrocytosis PT 14.4 H (9.0-12.0) sec INR 1.5 H (<1.2) ABG Total CO2 25 H (19-24) mmol/L ABG O2 Saturation 98.2 H (94-97) % Sodium (137-145) mmol/L Potassium (3.5-5.1) mmol/L Chloride (98-107) mmol/L BUN (9-20) mg/dL Creatinine (0.66-1.25) mg/dL Glucose (74-99) mg/dL POC Glucose (mg/dL) 185 H (75-99) mg/dL Calcium (8.4-10.2) mg/dL Total Bilirubin (0.2-1.3) mg/dL AST (17-59) U/L Ammonia (<30) umol/L Total Protein (6.3-8.2) g/dL Albumin (3.5-5.0) g/dL 02/28/20 Range/Units 12:02 RBC (4.30-5.90) m/uL Hgb (13.0-17.5) gm/dL Hct (39.0-53.0) % MCV (80.0-100.0) fL MCH (25.0-35.0) pg RDW (11.5-15.5) % Plt Count (150-450) k/uL Macrocytosis PT (9.0-12.0) sec INR (<1.2) ABG Total CO2 (19-24) mmol/L ABG O2 Saturation (94-97) % Sodium (137-145) mmol/L Potassium (3.5-5.1) mmol/L Chloride (98-107) mmol/L BUN (9-20) mg/dL Creatinine (0.66-1.25) mg/dL Glucose (74-99) mg/dL POC Glucose (mg/dL) 156 H (75-99) mg/dL Calcium (8.4-10.2) mg/dL Total Bilirubin (0.2-1.3) mg/dL AST (17-59) U/L Ammonia (<30) umol/L Total Protein (6.3-8.2) g/dL Albumin (3.5-5.0) g/dL Microbiology - Last 24 Hours (Table) 02/22/20 14:13 Blood Culture - Preliminary Blood No Growth after 120 hours Assessment and Plan Assessment: Impression: Acute hypoxic respiratory failure, suspect aspiration pneumonia. Chest x-ray has shown improvement over the last 2 days, and this is also reflected in the improvement noted in the ABG. Acute sepsis, possible septic shock, patient required pressors and remains on norepinephrine today. likely source is aspiration pneumonia, although abdominal source is not entirely ruled out. Blood cultures and sputum cultures remain negative. Alcohol liver disease with ascites. Jaundice, and elevated liver enzymes. Blood loss anemia, most likely the patient has acute or subacute GI bleeding, GI is following. Acute hepatic encephalopathy with significantly elevated ammonia level. Slightly increased today compared to yesterday, it is 73. Recent history of fall about 2 months ago, and multiple right-sided rib fractures. History of alcoholic neuropathy. History of pericarditis Chronic back pain History of restless leg syndrome. Acute kidney injury secondary to sepsis and septic shock. Strongly doubt hepatorenal syndrome. Recommendation: Continue ventilatory support. Sedation holiday today, and assessment of mental status. Continue propofol, and fentanyl. Brief sedation holiday today, and assessment of mental status. Continue nutritional support. Hemodynamic support if needed using compresses. Empiric antibiotics/Zosyn. Continue Solu-Medrol. Monitor cultures including blood and sputum, so far nondiagnostic. Monitor coagulopathy and liver profile. Prognosis remains extremely poor and guarded. Critical care time is 32 minutes. Time with Patient: Greater than 30
[2020-02-28] MEDS ORDERED: POTASSIUM BICARBONATE/CIT AC 20 MEQ TABLET.EFF NG-TUBE SCH (14:00)
[2020-02-28 18:11] LABS: Glucose,Whole Blood 196 mg/dL (75-99)
[2020-02-28] MEDS: RIFAXIMIN 550 MG TABLET PO SCH (21:07)
--- NOTE | 2020-02-28 22:27 | P.PN ---
Subjective Progress Note Date: 02/28/20 Principal diagnosis: Alcoholic hepatitis, alcoholic cirrhosis of the liver with ascites, hepatic encephalopathy, elevated liver enzymes Patient is seen in the intensive care unit where he is currently intubated and sedated. The patient has not been able to be weaned from the vent yet. Good stool output with nonbloody non-melanotic stool noted. Objective - Vital Signs Vital signs: Vital Signs Temp 98.2 F 02/28/20 08:00 Pulse 93 02/28/20 10:00 Resp 17 02/28/20 10:00 BP 114/65 02/28/20 10:00 Pulse Ox 100 02/28/20 10:00 Intake & Output 02/27/20 02/28/20 02/28/20 18:59 06:59 18:59 Intake Total 2719.764 8731.148 787.477 Output Total 810 1665 330 Balance 677.269 474.148 457.477 Weight 89.1 kg Intake: IV 659 748 312 Normal Saline Pressure 39 33 12 Bag Piperacillin-Tazobactam 3 100 200 100 .375 gm In Sodium Chloride 0.9% 100 ml @ 25 mls/hr IVPB Q8HR [facility] Rx# :[id number] Sodium Chloride 0.9% 1, 520 515 200 000 ml @ 50 mls/hr IV . Q20H [facility] Rx#:[id number] Intake, IV Titration 168.269 176.148 140.477 Amount Propofol 1,000 mg In 168.269 176.148 140.477 Empty Bag 1 bag @ Titrate IV .Q0M [facility] Rx#: [id number] Tube Feeding 280 615 135 Other 380 600 200 Output: Urine 810 1665 330 Other: Voiding Method Indwelling Catheter Indwelling Catheter Indwelling Catheter ABP, PAP, CO, CI - Last Documented Arterial Blood Pressure 138/53 - Exam On physical examination, patient appears comfortable in no apparent distress. HEAD: Normocephalic, atraumatic. EYES: Scleral icterus. No conjunctival injection. MOUTH: No lesions, tongue midline, endotracheal tube in place. NECK: Trachea midline, no gross abnormalities. CHEST: Coarse respiratory noises in all lung soni on mechanical ventilation. ABDOMEN: Soft, obese. Bowel sounds are positive. No organomegaly. No guarding or rigidity. EXTREMITIES: Bilateral pedal edema. SKIN: No rashes, jaundice. NEUROLOGIC: Intubated and sedated. - Labs CBC & Chem 7: 02/28/20 04:40 02/28/20 08:35 Labs: Abnormal Lab Results - Last 24 Hours (Table) 02/27/20 02/27/20 02/27/20 Range/Units 12:56 17:04 17:53 RBC (4.30-5.90) m/uL Hgb (13.0-17.5) gm/dL Hct (39.0-53.0) % MCV (80.0-100.0) fL MCH (25.0-35.0) pg RDW (11.5-15.5) % Plt Count (150-450) k/uL Macrocytosis PT (9.0-12.0) sec INR (<1.2) ABG Total CO2 (19-24) mmol/L ABG O2 Saturation (94-97) % Sodium (137-145) mmol/L Potassium (3.5-5.1) mmol/L Chloride (98-107) mmol/L BUN (9-20) mg/dL Creatinine (0.66-1.25) mg/dL Glucose (74-99) mg/dL POC Glucose (mg/dL) 145 H 158 H 160 H (75-99) mg/dL Calcium (8.4-10.2) mg/dL Total Bilirubin (0.2-1.3) mg/dL AST (17-59) U/L Ammonia (<30) umol/L Total Protein (6.3-8.2) g/dL Albumin (3.5-5.0) g/dL 02/27/20 02/28/20 02/28/20 Range/Units 23:49 04:40 04:40 RBC 2.29 L (4.30-5.90) m/uL Hgb 8.4 L (13.0-17.5) gm/dL Hct 25.4 L (39.0-53.0) % MCV 110.7 H (80.0-100.0) fL MCH 36.5 H (25.0-35.0) pg RDW 24.2 H (11.5-15.5) % Plt Count 69 L (150-450) k/uL Macrocytosis Marked A PT (9.0-12.0) sec INR (<1.2) ABG Total CO2 (19-24) mmol/L ABG O2 Saturation (94-97) % Sodium 150 H (137-145) mmol/L Potassium 2.8 L (3.5-5.1) mmol/L Chloride 123 H (98-107) mmol/L BUN 61 H (9-20) mg/dL Creatinine 1.43 H (0.66-1.25) mg/dL Glucose 153 H (74-99) mg/dL POC Glucose (mg/dL) 189 H (75-99) mg/dL Calcium 7.9 L (8.4-10.2) mg/dL Total Bilirubin 5.5 H (0.2-1.3) mg/dL AST 116 H (17-59) U/L Ammonia (<30) umol/L Total Protein 6.0 L (6.3-8.2) g/dL Albumin 2.2 L (3.5-5.0) g/dL 02/28/20 02/28/20 02/28/20 Range/Units 04:40 05:37 07:23 RBC (4.30-5.90) m/uL Hgb (13.0-17.5) gm/dL Hct (39.0-53.0) % MCV (80.0-100.0) fL MCH (25.0-35.0) pg RDW (11.5-15.5) % Plt Count (150-450) k/uL Macrocytosis PT (9.0-12.0) sec INR (<1.2) ABG Total CO2 25 H (19-24) mmol/L ABG O2 Saturation 98.2 H (94-97) % Sodium (137-145) mmol/L Potassium (3.5-5.1) mmol/L Chloride (98-107) mmol/L BUN (9-20) mg/dL Creatinine (0.66-1.25) mg/dL Glucose (74-99) mg/dL POC Glucose (mg/dL) 185 H (75-99) mg/dL Calcium (8.4-10.2) mg/dL Total Bilirubin (0.2-1.3) mg/dL AST (17-59) U/L Ammonia 73 H (<30) umol/L Total Protein (6.3-8.2) g/dL Albumin (3.5-5.0) g/dL 02/28/20 Range/Units 08:35 RBC (4.30-5.90) m/uL Hgb (13.0-17.5) gm/dL Hct (39.0-53.0) % MCV (80.0-100.0) fL MCH (25.0-35.0) pg RDW (11.5-15.5) % Plt Count (150-450) k/uL Macrocytosis PT 14.4 H (9.0-12.0) sec INR 1.5 H (<1.2) ABG Total CO2 (19-24) mmol/L ABG O2 Saturation (94-97) % Sodium (137-145) mmol/L Potassium (3.5-5.1) mmol/L Chloride (98-107) mmol/L BUN (9-20) mg/dL Creatinine (0.66-1.25) mg/dL Glucose (74-99) mg/dL POC Glucose (mg/dL) (75-99) mg/dL Calcium (8.4-10.2) mg/dL Total Bilirubin (0.2-1.3) mg/dL AST (17-59) U/L Ammonia (<30) umol/L Total Protein (6.3-8.2) g/dL Albumin (3.5-5.0) g/dL Microbiology - Last 24 Hours (Table) 02/22/20 14:13 Blood Culture - Preliminary Blood No Growth after 120 hours Assessment and Plan (1) Acute alcoholic hepatitis Narrative/Plan: 54-year-old male with known history of alcohol abuse presenting to the hospital with altered mental status. Likely multifactorial given suspected underlying decompensated cirrhosis, acute alcoholic hepatitis and concern for aspiration pneumonia and sepsis. Currently receiving treatment in the ICU, he remains on broad-spectrum antibiotic therapy and mechanically ventilated. Current Visit: Yes Status: Acute Code(s): K70.10 - ALCOHOLIC HEPATITIS WITHOUT ASCITES SNOMED Code(s): 5461450 (2) Liver cirrhosis Current Visit: Yes Status: Acute Code(s): K74.60 - UNSPECIFIED CIRRHOSIS OF LIVER SNOMED Code(s): 65548157 (3) Ascites Current Visit: Yes Status: Acute Code(s): R18.8 - OTHER ASCITES SNOMED C ode(s): 869447392 (4) Hepatic encephalopathy Current Visit: Yes Status: Acute Code(s): K72.90 - HEPATIC FAILURE, UNSPECIFIED WITHOUT COMA SNOMED Code(s): 80367980 (5) Bicytopenia Narrative/Plan: Patient anemic and thrombocytopenic likely related to chronic alcohol use. Stool testing was positive for blood but patient has no signs or symptoms of GI bleeding with normal brown stool noted and fecal management system. Hemoglobin has remained stable. Current Visit: Yes Status: Acute Code(s): D75.89 - OTHER SPECIFIED DISEASES OF BLOOD AND BLOOD-FORMING ORGANS SNOMED Code(s): 59392957 Plan: Supportive care Nothing by mouth, okay for tube feeds as tolerated Continue management per lead engineer service, patient currently intubated and sedated Continue broad-spectrum antibiotic therapy Continue lactulose 4 times a day Xifaxan twice daily Can consider paracentesis when patient is medically stable Patient is on diuretic therapy with Lasix 3 times a day and Aldactone 3 times a day Alcohol abstinence Thank you for allowing us to participate in the care of the patient we will con tinue to follow
[2020-02-29 00:03] LABS: Glucose,Whole Blood 205 mg/dL (75-99)
[2020-02-29] MEDS: methylPREDNISolone SOD SUCCI 40 MG/ML 1 ML VIAL IV SCH ×3 (00:06→16:06)
[2020-02-29] MEDS: FUROSEMIDE 10 MG/ML 4 ML VIAL IV SCH ×3 (00:06→16:06)
[2020-02-29] MEDS: INSULIN ASPART (NovoLOG) 100 UNIT/ML VIAL SQ SCH ×4 (00:06→18:07)
[2020-02-29] MEDS: PIPERACILLIN-TAZOBACTAM 3.375 GM in SODIUM CHLORIDE 0.9% 100 ML IVPB SCH ×3 (00:06→16:06)
[2020-02-29] MEDS: PROPOFOL 1,000 MG in EMPTY BAG 1 BAG IV SCH ×3 (01:37→13:57)
[2020-02-29] MEDS: MORPHINE SULFATE 2 MG/ML SYRINGE IVP PRN (01:41)
[2020-02-29 04:52] LABS: Anisocytosis Moderate; HCT 25.4 % (39.0-53.0); HGB 8.4 gm/dL (13.0-17.5); Hypochromasia Moderate; MCH 36.9 pg (25.0-35.0); MCV 111.7 fL (80.0-100.0); RBC 2.28 m/uL (4.30-5.90); RDW 23.7 % (11.5-15.5); WBC 10.8 k/uL (3.8-10.6)
[2020-02-29 04:56] LABS: Macrocytosis Marked; Platelet Count 58 k/uL (150-450)
[2020-02-29 05:09] LABS: Albumin 2.2 g/dL (3.5-5.0); Calcium 8.1 mg/dL (8.4-10.2); Potassium 2.8 mmol/L (3.5-5.1); Total Bilirubin 6.1 mg/dL (0.2-1.3)
[2020-02-29] MEDS ORDERED: Potassium Replacement Protocol 1 EACH MISC MISCELLANE PRN (05:50)
[2020-02-29 05:57] LABS: Glucose,Whole Blood 175 mg/dL (75-99)
[2020-02-29] MEDS: POTASSIUM BICARBONATE/CIT AC 20 MEQ TABLET.EFF NG-TUBE SCH ×3 (06:00→16:06)
--- NOTE | 2020-02-29 07:21 | XR ---
EXAMINATION TYPE: XR chest 1V DATE OF EXAM: 02/29/2020 COMPARISON: 02/28/2020 HISTORY: Abnormal x-ray TECHNIQUE: Single frontal view of the chest is obtained. FINDINGS: ET and NG tube stable. No sizable pneumothorax. Limited inspiration with elevated left hem idiaphragm. Subsegmental areas of consolidation are noted. Stable. IMPRESSION: 1. Stable bilateral areas of atelectasis or infiltrate.
[2020-02-29 07:23] LABS: ABG Base Excess 2.2 mmol/L; ABG HCO3 26 mmol/L (21-25); ABG Oxygen Saturation 97.4 % (94-97); ABG PCO2 35 mmHg (35-45); ABG PH 7.47 (7.35-7.45); ABG PO2 93 mmHg (83-108); ABG TCO2 27 mmol/L (19-24); Allen Test Performed? Yes
[2020-02-29] MEDS: IPRATROPIUM-ALBUTEROL 3 ML NEB INHALATION SCH ×4 (07:30→19:00)
[2020-02-29] MEDS: PANTOPRAZOLE 40 MG/10 ML VIAL IVP SCH ×2 (08:11→20:33)
[2020-02-29] MEDS: RIFAXIMIN 550 MG TABLET PO SCH ×2 (08:11→20:33)
[2020-02-29] MEDS: CHLORHEXIDINE GLUCONATE 15 ML CUP MUCOUS MEM SCH ×2 (08:11→19:49)
[2020-02-29] MEDS: SPIRONOLACTONE 25 MG TAB PO SCH ×3 (08:11→21:32)
[2020-02-29] MEDS: NOREPINEPHRINE 4 MG in SODIUM CHLORIDE 0.9% 250 ML IV SCH (08:12)
[2020-02-29] MEDS: LACTULOSE 20 GM/30 ML CUP PO SCH ×4 (08:18→21:32)
--- NOTE | 2020-02-29 10:12 | P.PN ---
Subjective Progress Note Date: 02/29/20 Principal diagnosis: acute hypoxic respiratory failure secondary to aspiration pneumonia and acute sepsis, with subsequent alcoholic liver failure patient evaluated today, in the intensive care unit, intubated and mechanically ventilated. This morning's chest x-ray showing continued improvement. Ammonia level is 64 which actually is down from 69. Chest x-ray was reviewed this morning stable comparable to yesterday. Blood gases also showed improvement in pulmonary, decreased PEEP to 5. THE ammonia level was down to 64 Patient is currently being sedated BUN 69 creatinine 1.32 Objective - Vital Signs Vital signs: Vital Signs Temp 97.2 F L 02/29/20 08:00 Pulse 93 02/29/20 09:00 Resp 37 H 02/29/20 09:00 BP 108/60 02/29/20 07:00 Pulse Ox 100 02/29/20 09:00 Intake & Output 02/28/20 02/29/20 02/29/20 18:59 06:59 18:59 Intake Total 2091.405 2182.161 494 Output Total 2215 2955 125 Balance -123.595 -772.839 369 Weight 87 kg Intake: IV 833 756 159 Normal Saline Pressure 83 36 9 Bag Piperacillin-Tazobactam 3 200 200 .375 gm In Sodium Chloride 0.9% 100 ml @ 25 mls/hr IVPB Q8HR [facility] Rx# :[id number] Sodium Chloride 0.9% 1, 550 520 150 000 ml @ 50 mls/hr IV . Q20H [facility]ED Rx#:[id number] Intake, IV Titration 153.405 151.161 Amount Propofol 1,000 mg In 153.405 151.161 Empty Bag 1 bag @ Titrate IV .Q0M J[facility]ED Rx#: [id number] Tube Feeding 405 675 135 Other 700 600 200 Output: Urine 1015 1755 125 Stool 1200 1200 Other: Voiding Method Indwelling Catheter Indwelling Catheter Indwelling Catheter ABP, PAP, CO, CI - Last Documented Arterial Blood Pressure 131/60 - Exam General: intubated,mechanical ventilation HEENT: mild scleral icterus endotracheal tube oral gastric tube is intact Neck: [No adenopathy.] Cardiac: [Heart regular in rate and rhythm. normal S1 and S2, regular 6 systolic murmur Lungs: crackles and/or rhonchi bilateral Abdomen: [No mass. No organomegaly. Bowel sounds presnt and normoactive in all 4 quadrants.] Extremes: 2+ bipedal edema, no cyanosis, deformity noted dorsal aspect right foot : Rectal tube in place Musculoskeletal: [No joint erythema, edema or tenderness.] Skin: [No rash.] Neurologic: cannot be assessed, fully sedated, on mechanical ventilation Lymphatic: [No adenopathy.] - Labs CBC & Chem 7: 02/29/20 04:40 02/29/20 04:40 Labs: Abnormal Lab Results - Last 24 Hours (Table) 02/28/20 02/28/20 02/29/20 Range/Units 12:02 18:10 00:01 WBC (3.8-10.6) k/uL RBC (4.30-5.90) m/uL Hgb (13.0-17.5) gm/dL Hct (39.0-53.0) % MCV (80.0-100.0) fL MCH (25.0-35.0) pg RDW (11.5-15.5) % Plt Count (150-450) k/uL Macrocytosis ABG pH (7.35-7.45) ABG HCO3 (21-25) mmol/L ABG Total CO2 (19-24) mmol/L ABG O2 Saturation (94-97) % Sodium (137-145) mmol/L Potassium (3.5-5.1) mmol/L Chloride (98-107) mmol/L BUN (9-20) mg/dL Creatinine (0.66-1.25) mg/dL Glucose (74-99) mg/dL POC Glucose (mg/dL) 156 H 196 H 205 H (75-99) mg/dL Calcium (8.4-10.2) mg/dL Total Bilirubin (0.2-1.3) mg/dL AST (17-59) U/L Ammonia (<30) umol/L Total Protein (6.3-8.2) g/dL Albumin (3.5-5.0) g/dL 02/29/20 02/29/20 02/29/20 Range/Units 04:40 04:40 04:40 WBC 10.8 H (3.8-10.6) k/uL RBC 2.28 L (4.30-5.90) m/uL Hgb 8.4 L (13.0-17.5) gm/dL Hct 25.4 L (39.0-53.0) % MCV 111.7 H (80.0-100.0) fL MCH 36.9 H (25.0-35.0) pg RDW 23.7 H (11.5-15.5) % Plt Count 58 L (150-450) k/uL Macrocytosis Marked A ABG pH (7.35-7.45) ABG HCO3 (21-25) mmol/L ABG Total CO2 (19-24) mmol/L ABG O2 Saturation (94-97) % Sodium 156 H (137-145) mmol/L Potassium 2.8 L (3.5-5.1) mmol/L Chloride 127 H (98-107) mmol/L BUN 69 H (9-20) mg/dL Creatinine 1.32 H (0.66-1.25) mg/dL Glucose 157 H (74-99) mg/dL POC Glucose (mg/dL) (75-99) mg/dL Calcium 8.1 L (8.4-10.2) mg/dL Total Bilirubin 6.1 H (0.2-1.3) mg/dL AST 111 H (17-59) U/L Ammonia 64 H (<30) umol/L Total Protein 6.0 L (6.3-8.2) g/dL Albumin 2.2 L (3.5-5.0) g/dL 02/29/20 02/29/20 Range/Units 05:55 07:19 WBC (3.8-10.6) k/uL RBC (4.30-5.90) m/uL Hgb (13.0-17.5) gm/dL Hct (39.0-53.0) % MCV (80.0-100.0) fL MCH (25.0-35.0) pg RDW (11.5-15.5) % Plt Count (150-450) k/uL Macrocytosis ABG pH 7.47 H (7.35-7.45) ABG HCO3 26 H (21-25) mmol/L ABG Total CO2 27 H (19-24) mmol/L ABG O2 Saturation 97.4 H (94-97) % Sodium (137-145) mmol/L Potassium (3.5-5.1) mmol/L Chloride (98-107) mmol/L BUN (9-20) mg/dL Creatinine (0.66-1.25) mg/dL Glucose (74-99) mg/dL POC Glucose (mg/dL) 175 H (75-99) mg/dL Calcium (8.4-10.2) mg/dL Total Bilirubin (0.2-1.3) mg/dL AST (17-59) U/L Ammonia (<30) umol/L Total Protein (6.3-8.2) g/dL Albumin (3.5-5.0) g/dL Microbiology - Last 24 Hours (Table) 02/22/20 14:13 Blood Culture - Final Blood No Growth after 144 hours Assessment and Plan (1) Sepsis with acute hypoxic respiratory failure and septic shock Current Visit: Yes Status: Acute Code(s): A41.9 - SEPSIS, UNSPECIFIED ORGANISM; R65.21 - SEVERE SEPSIS WITH SEPTIC SHOCK; J96.01 - ACUTE RESPIRATORY FAILURE WITH HYPOXIA SNOMED Code(s): 273529005 (2) Serum ammonia increased Current Visit: Yes Status: Acute Code(s): E72.20 - DISORDER OF UREA CYCLE METABOLISM, UNSPECIFIED SNOMED Code(s): 6665087 (3) Anemia due to blood loss, acute Current Visit: Yes Status: Acute Code(s): D62 - ACUTE POSTHEMORRHAGIC ANEMIA SNOMED Code(s): 405540398 (4) Alcoholic peripheral neuropathy Current Visit: Yes Status: Acute Code(s): G62.1 - ALCOHOLIC POLYNEUROPATHY SNOMED Code(s): 4975820 (5) Acute alcoholic hepatitis Current Visit: Yes Status: Acute Code(s): K70.10 - ALCOHOLIC HEPATITIS WITHOUT ASCITES SNOMED Code(s): 6129334 (6) Ascites Current Visit: Yes Status: Acute Code(s): R18.8 - OTHER ASCITES SNOMED Code(s): 241490320 (7) Bicytopenia Current Visit: Yes Status: Acute Code(s): D75.89 - OTHER SPECIFIED DISEASES OF BLOOD AND BLOOD-FORMING ORGANS SNOMED Code(s): 65523481 (8) Foot swelling Current Visit: Yes Status: Acute Priority: Medium Code(s): M79.89 - OTHER SPECIFIED SOFT TISSUE DISORDERS SNOMED Code(s): 766182925 (9) GI hemorrhage Current Visit: Yes Status: Acute Code(s): K92.2 - GASTROINTESTINAL HEMORRHAGE, UNSPECIFIED SNOMED Code(s): 54403458 (10) Hepatic encephalopathy Current Visit: Yes Status: Acute Code(s): K72.90 - HEPATIC FAILURE, UNSPECIFIED WITHOUT COMA SNOMED Code(s): 46442401 (11) Liver cirrhosis Current Visit: Yes Status: Acute Code(s): K74.60 - UNSPECIFIED CIRRHOSIS OF LIVER SNOMED Code(s): 41715989 (12) Pneumonia Current Visit: Yes Status: Acute Code(s): J18.9 - PNEUMONIA, UNSPECIFIED ORGANISM SNOMED Code(s): 358892366 (13) Sepsis Current Visit: Yes Status: Acute Code(s): A41.9 - SEPSIS, UNSPECIFIED ORGANISM SNOMED Code(s): 66115374 Plan: continue ventilatory support Continue sedation Blood culture negative no growth after 144 hour Patient has on empiric IV antibiotics Zosyn Monitoring ammonia levels which is recently improving Lactulose 4 times daily GI considering paracentesis once patient is hemodynamically stable Monitoring coagulopathy and liver profile Orthopedics reevaluated right foot and ankle Patient appears improved today however prognosis is still guarded, Time with Patient: Greater than 30
[2020-02-29] MEDS: DEXTROSE 5% IN WATER 1,000 ML IV SCH (10:36)
[2020-02-29] MEDS: fentaNYL (PF) 1,000 MCG in SODIUM CHLORIDE 0.9% 80 ML IV SCH (10:37)
[2020-02-29 12:00] LABS: Glucose,Whole Blood 197 mg/dL (75-99)
--- NOTE | 2020-02-29 13:56 | P.PN ---
Subjective Progress Note Date: 02/29/20 Principal diagnosis: Acute hypoxic respiratory failure secondary to acute aspiration pneumonia, acute sepsis This is a 54-year-old white male, history of alcohol abuse, patient was brought into the ER with change in mental status according to EMS. Patient could not give any history, he was a very poor historian upon arrival to the ER. Patient is supposedly a daily drinker, however from my review of the chart, I saw this patient back on 11/11/19, patient presented back then with multiple posterior lateral rib fractures on the right. Apparently he fell in his bathroom, and landed on the side of the top sustaining multiple rib fractures. Patient sustained rib fractures of 910 and 11 ribs. Patient is also known to have history of severe emphysema/COPD. He is legally blind. He has history of pericarditis, anxiety, and history of degenerative joint disease. Patient was discharged home on 11/12/19. Drug screen in the ER was positive for tricyclic antidepressants and positive for benzodiazepines. Rest of the drug screen was basically negative. ABG in the ER showed a pO2 of 63 pCO2 of 29 pH of 7.49. Patient was also noted to have elevated INR of 3.7. Low hemoglobin of 7.0 although his baseline hemoglobin from 2 months ago was 15.1. Ammonia level was 91. Total bilirubin was 14.9, and his liver enzymes were a bit elevated. Normal amylase and lipase were noted. Gallbladder ultrasound showed abdominal ascites. Chest x-ray showed bilateral diffuse infiltrates. Patient was presumed septic upon presentation, received fluid boluses of 2500 ML's. Patient was found to have hepatic encephalopathy liver failure, bilateral pneumonia, GI hemorrhage and sepsis. Early this morning, patient was intubated, placed on mechanical ventilation, and he was aware of the patient since admission. Presently the patient is on assist control rate of 28 tidal volume is 500 FiO2 is 100% PEEP of 5. ABG showed a pO2 of 170 pCO2 of 31 pH of 7.46. Hence I cut down the FiO2 to 50%, increased the PEEP to 8, cut down the tidal volume to 450, and decrease the respiratory rate to 26. Patient is on Sandostatin for his GI bleeding, and he is yet to be seen by gastroenterology on consultation is also on Protonix. He is on lactulose for his elevated ammonia level. And he is empirically on Zosyn for presumptive aspiration pneumonia. Echocardiogram showed evidence of good LV function. And mild valvular heart disease. BNP level was borderline elevated at 910 Patient was reevaluated today on 02/24/20, remains on mechanical ventilation. He is presently on assist control rate of 26 tidal volume is 450 FiO2 of 60% and PEEP of 8. However I increased his PEEP to 12 and cut down his FiO2 to 50%. At night the patient developed worsening agitation, and Stacking his breaths, was not synchronous with mechanical ventilation, hence had to place the patient on Nimbex. Today I plan to discontinue Nimbex and place him on fentanyl 25 g per hour. Patient will be started on tube feeding, and I cut down his IV fluid to 50 MLS per hour. Remains on propofol at 60 mcg/kg/m, Nimbex which will be discontinued, but creatinine which was discontinued this morning, and no repinephrine at 0.06 mcg/kg/m. Enteral feeding to be started today by [employer]. Patient remains on antibiotics, remains on lactulose for his elevated ammonia level which is 80 today. And he remains on Protonix. Chest x- ray showed more consolidation noted bilaterally in both lungs more so in the left lung. Bilateraldisease is noted consistent with aspiration pneumonia. Sputum cultures and blood cultures so far remain on diagnostic. ABG today showed a pO2 of 67 pCO2 of 39 pH of 7.33. WBC count is 14.7 hemoglobin is 8.6 platelets are 66,000 and INR is 2.1. Electrolytes are basically normal renal profile showed beer of 25 creatinine 0.94. Patient was reevaluated today on 02/25/20, remains in the intensive care unit, remains on mechanical ventilation. His ventilator settings are assist control rate of 26, tidal volume is 450 FiO2 is 50% and PEEP is at 12. ABG showed a pO2 of 65 pCO2 of 37 pH of 7.36, hence no change was made in the ventilator settings. Patient remains on norepinephrine at 0.09 mcg/kg/m, propofol at 45 mcg/kg/m, fentanyl at 0.5 mcg/kg/h. Remains on enteral feeding at 30 MLS per hour goal is 45. Remains on Zosyn for empiric coverage of aspiration pneumonia. Remains on lactulose and the dose was increased to 45 ML 4 times a day, and added Xifaxan at 550 mg twice a day. His lactulose does not seem to be inducing enough diarrhea did get his ammonia level down. Continues to have significantly elevated ammonia level in spite of lactulose for the last 2 days. Patient continues to have ascites. And no plans for paracentesis as recommended by gastroenterology at this point. Chest x-ray showed very minimal improvement if any in his bilateral infiltrates. The bilateral infiltrates are suggestive of aspiration pneumonia. Obviously the patient is known to have history of alcoholism, and he presented with alcoholic liver hepatitis, and hepatic en cephalopathy. Labs today were all reviewed WBC is 14.1 hemoglobin is 9.4 platelets are 75,000 INR is 1.7. Electrolytes are unremarkable except for low potassium of 3.4 BUN of 27 creatinine 1.32. Liver enzymes are borderline elevated. Total bilirubin is improving down to 8.9 today. Albumin is 2.3 Patient was reevaluated today on 02/26/20, remains in the ICU, intubated, mechanically ventilated. Patient is on assist control rate of 26 tidal volume 450 FiO2 50% and PEEP is 12. Chest x-ray is showing definite improvement, however his ABG is basically about the same with a pO2 of 68 pCO2 of 38 and pH of 7.38. His ammonia level is on the rise in spite of the fact that the patient is on relatively high dose of lactulose and he is also on Xifaxan. Patient remains on propofol at 40 mcg/kg/m, fentanyl at 0.5 mcg/kg/h, he is on very small dose of norepinephrine at 0.01 mcg/kg/m, IV fluid is at KVO, and he is also on Zosyn for presumptive aspiration pneumonia. Remains on diuretics in the form of Lasix, Aldactone. His Lasix was increased to 40 mg 3 times a day, and he is on Aldactone via nasogastric tube. Patient was taken off sedation today, however he became extremely agitated, tachypneic, tachycardic, hence we had to place him back on sedation and continued assist control mode of mechanical ventilation. Chest x-ray again showed improvement. WBC count today is 11 hemoglobin is 8.5 his INR is 1.7 basic metabolic profile is improving, creatinine however is up to 1.40, and the patient obviously developed acute kidney injury. This could very well be related to his sepsis, and related to his hypotension requiring norepinephrine. Cultures including blood cultures and sputum cultures have been negative. Patient was reevaluated today in the ICU, remains intubated and mechanically ventilated. His ventilator settings are assist control rate of 26 tidal volume is 450 FiO2 is 50% and PEEP is at 12 chest x-ray showed dramatic improvement. His ABG is significantly improved hence I recommended cutting down the PEEP to 8. His ammonia level is significantly improved today, it is down to 69. Sodium seems to be creeping up a little bit, and I recommended free water flushes via orogastric tube. Patient is on propofol at 50 mcg/kg/m, his tube feeding is presently on hold because of increased residual. Patient was given a sedation holiday, however when he went off propofol, the patient became extremely agitated, restless, biting on the endotracheal tube, tachycardic, tachypneic, and was extremely agitated. Hence I recommended placing him back on propofol, and not quite ready for weaning. Labs were all reviewed today. And addressed accordingly including his elevated sodium and elevated BUN of 49 creatinine 1.46. Chest x-ray showed significant improvement in his bilateral infiltrates/aspiration pneumonia. Patient was reevaluated today on 02/28/20, remains in the ICU, intubated and mechanically ventilated. His ventilator settings are assist control rate of 26 FiO2 50% tidal volume of 450 PEEP is at 8 and today I cut down his FiO2 to 45% and kept him on a PEEP of 8. ABG this morning showed a pO2 of 102 pCO2 of 35 pH of 7.45. Patient has significantly elevated sodium today of 150 potassium is low at 2.8 ammonia level remains high at 73. Patient is not requiring any pressors, he is on propofol at 34 mcg/kg/m. Patient is on enteral feeding. I do plan to wean the patient off propofol sometime today, and assess mental status again. This was attempted yesterday, but the patient didn't do well, I have also recommended free water flushes to correct his hyper natremia. The patient is seen today 02/29/2020 in follow-up in the intensive care unit. He remains intubated on mechanical vent. Current settings are assist control at a rate of 26, FiO2 45% tidal volume 450 and a PEEP of 8. Morning blood gases reveal a P O2 of 93, pCO2 of 35 and a pH of 7.47. Chest x-ray reveals stable bilateral atelectasis/infiltrate. He is sedated on propofol at 50 mcg/kg/m. Antibiotics in the form of Zosyn. He remains on IV diuretics. He is tolerating his tube feedings. He remains hypernatremic despite free water. IVs changed to D5W at 75 ML's per hour. Sodium 156. Potassium 2.8. Creatinine 1.32. Glucose 157. White count 10.8. Hemoglobin 8.4. Platelet count 58,000. Objective - Vital Signs Vital signs: Vital Signs Temp 98.8 F 02/29/20 12:00 Pulse 109 H 02/29/20 13:00 Resp 10 L 02/29/20 13:00 BP 108/60 02/29/20 07:00 Pulse Ox 100 02/29/20 13:00 Intake & Output 02/28/20 02/29/20 02/29/20 18:59 06:59 18:59 Intake Total 2091.405 2182.161 1138 Output Total 2215 2955 750 Balance -123.595 -772.839 388 Weight 87 kg Intake: IV 833 756 368 Dextrose 5% in Water 1, 150 000 ml @ 75 mls/hr IV . [id number] J[facility]ED Rx#:[id number] Normal Saline Pressure 83 36 18 Bag Piperacillin-Tazobactam 3 200 200 .375 gm In Sodium Chloride 0.9% 100 ml @ 25 mls/hr IVPB Q8HR J[facility]ED Rx# :[id number] Sodium Chloride 0.9% 1, 550 520 200 000 ml @ 50 mls/hr IV . Q20H J[facility]ED Rx#:[id number] Intake, IV Titration 153.405 151.161 100 Amount Piperacillin-Tazobactam 3 100 .375 gm In Sodium Chloride 0.9% 100 ml @ 25 mls/hr IVPB Q8HR [facility]ED Rx# :[id number] Propofol 1,000 mg In 153.405 151.161 Empty Bag 1 bag @ Titrate IV .Q0M JARED Rx#: [id number] Tube Feeding 405 675 270 Other 700 600 400 Output: Urine 1015 1755 750 Stool 1200 1200 Other: Voiding Method Indwelling Catheter Indwelling Catheter Indwelling Catheter ABP, PAP, CO, CI - Last Documented Arterial Blood Pressure 161/70 - Exam GENERAL EXAM: Intubated, sedated 54-year-old gentleman, comfortable in no apparent distress. HEAD: Normocephalic. EYES: Normal reaction of pupils, equal size. NOSE: Clear with pink turbinates. THROAT: Oral endotracheal tube and gastric tube secured in place No erythema or exudates. NECK: No masses, no JVD. CHEST: No chest wall deformity. LUNGS: Equal air entry with crackles at the bilateral posterior bases. CVS: S1 and S2 normal with no audible murmur, regular rhythm. ABDOMEN: No hepatosplenomegaly, normal bowel sounds, no guarding or rigidity. SPINE: No scoliosis or deformity SKIN: No rashes CENTRAL NERVOUS SYSTEM: Sedated, tone is normal in all 4 extremities. EXTREMITIES: There is 1-2+ peripheral edema. No clubbing, no cyanosis. Peripheral pulses are intact. - Labs CBC & Chem 7: 02/29/20 04:40 02/29/20 11:10 Labs: Abnormal Lab Results - Last 24 Hours (Table) 02/28/20 02/29/20 02/29/20 Range/Units 18:10 00:01 04:40 WBC 10.8 H (3.8-10.6) k/uL RBC 2.28 L (4.30-5.90) m/uL Hgb 8.4 L (13.0-17.5) gm/dL Hct 25.4 L (39.0-53.0) % MCV 111.7 H (80.0-100.0) fL MCH 36.9 H (25.0-35.0) pg RDW 23.7 H (11.5-15.5) % Plt Count 58 L (150-450) k/uL Macrocytosis Marked A ABG pH (7.35-7.45) ABG HCO3 (21-25) mmol/L ABG Total CO2 (19-24) mmol/L ABG O2 Saturation (94-97) % Sodium (137-145) mmol/L Potassium (3.5-5.1) mmol/L Chloride (98-107) mmol/L BUN (9-20) mg/dL Creatinine (0.66-1.25) mg/dL Glucose (74-99) mg/dL POC Glucose (mg/dL) 196 H 205 H (75-99) mg/dL Calcium (8.4-10.2) mg/dL Total Bilirubin (0.2-1.3) mg/dL AST (17-59) U/L Ammonia (<30) umol/L Total Protein (6.3-8.2) g/dL Albumin (3.5-5.0) g/dL 02/29/20 02/29/20 02/29/20 Range/Units 04:40 04:40 05:55 WBC (3.8-10.6) k/uL RBC (4.30-5.90) m/uL Hgb (13.0-17.5) gm/dL Hct (39.0-53.0) % MCV (80.0-100.0) fL MCH (25.0-35.0) pg RDW (11.5-15.5) % Plt Count (150-450) k/uL Macrocytosis ABG pH (7.35-7.45) ABG HCO3 (21-25) mmol/L ABG Total CO2 (19-24) mmol/L ABG O2 Saturation (94-97) % Sodium 156 H (137-145) mmol/L Potassium 2.8 L (3.5-5.1) mmol/L Chloride 127 H (98-107) mmol/L BUN 69 H (9-20) mg/dL Creatinine 1.32 H (0.66-1.25) mg/dL Glucose 157 H (74-99) mg/dL POC Glucose (mg/dL) 175 H (75-99) mg/dL Calcium 8.1 L (8.4-10.2) mg/dL Total Bilirubin 6.1 H (0.2-1.3) mg/dL AST 111 H (17-59) U/L Ammonia 64 H (<30) umol/L Total Protein 6.0 L (6.3-8.2) g/dL Albumin 2.2 L (3.5-5.0) g/dL 02/29/20 02/29/20 Range/Units 07:19 11:58 WBC (3.8-10.6) k/uL RBC (4.30-5.90) m/uL Hgb (13.0-17.5) gm/dL Hct (39.0-53.0) % MCV (80.0-100.0) fL MCH (25.0-35.0) pg RDW (11.5-15.5) % Plt Count (150-450) k/uL Macrocytosis ABG pH 7.47 H (7.35-7.45) ABG HCO3 26 H (21-25) mmol/L ABG Total CO2 27 H (19-24) mmol/L ABG O2 Saturation 97.4 H (94-97) % Sodium (137-145) mmol/L Potassium (3.5-5.1) mmol/L Chloride (98-107) mmol/L BUN (9-20) mg/dL Creatinine (0.66-1.25) mg/dL Glucose (74-99) mg/dL POC Glucose (mg/dL) 197 H (75-99) mg/dL Calcium (8.4-10.2) mg/dL Total Bilirubin (0.2-1.3) mg/dL AST (17-59) U/L Ammonia (<30) umol/L Total Protein (6.3-8.2) g/dL Albumin (3.5-5.0) g/dL Microbiology - Last 24 Hours (Table) 02/22/20 14:13 Blood Culture - Final Blood No Growth after 144 hours Assessment and Plan Assessment: Acute hypoxic respiratory failure, suspect aspiration pneumonia. Chest x-ray has shown improvement over the last 2 days, and this is also reflected in the improvement noted in the ABG. Acute sepsis, possible septic shock, patient required pressors and remains on norepinephrine today. likely source is aspiration pneumonia, although abdominal source is not entirely ruled out. Blood cultures and sputum cultures remain negative. Alcohol liver disease with ascites. Jaundice, and elevated liver enzymes. Blood loss anemia, most likely the patient has acute or subacute GI bleeding, GI is following. Acute hepatic encephalopathy with significantly elevated ammonia level. Slightly increased today compared to yesterday, it is 73. Recent history of fall about 2 months ago, and multiple right-sided rib fractures. History of alcoholic neuropathy. History of pericarditis Chronic back pain History of restless leg syndrome. Acute kidney injury secondary to sepsis and septic shock. Strongly doubt hepatorenal syndrome. Plan The patient was seen and evaluated by Dr. Dickson Chest x-ray, ABGs and labs reviewed Continue with daily interruption of sedation and CPAP trials Continue nutritional support Continue the current medications Condition remains quite guarded and poor We'll continue to follow Critical care time 35 minutes I, the cosigning physician, performed a history & physical examination of the patient. Lungs sounds with crackles in the bilateral posterior bases. Maintaining good O2 saturations in the 90s on 45% FiO2 via the mechanical ventilator. I discussed the assessment and plan of care with my nurse practitioner, Pallavi Gunter. I attest to the above note as dictated by her.
--- NOTE | 2020-02-29 17:07 | P.PN ---
Subjective Progress Note Date: 02/29/20 Principal diagnosis: Alcoholic hepatitis, alcoholic cirrhosis of the liver with ascites, hepatic encephalopathy, elevated liver enzymes Patient is seen in the intensive care unit where he is currently intubated and sedated. The patient has not been able to be weaned from the vent as of yet. He continues to have good nonbloody bowel movements with the nursing staff reporting that there emptying his fecal management system twice per day. Objective - Vital Signs Vital signs: Vital Signs Temp 97.0 F L 02/29/20 04:00 Pulse 89 02/29/20 07:57 Resp 18 02/29/20 07:00 BP 108/60 02/29/20 07:00 Pulse Ox 100 02/29/20 07:00 Intake & Output 02/28/20 02/29/20 02/29/20 18:59 06:59 18:59 Intake Total 2091.405 2182.161 396 Output Total 2215 2955 125 Balance -123.595 -772.839 271 Weight 87 kg Intake: IV 833 756 106 Normal Saline Pressure 83 36 6 Bag Piperacillin-Tazobactam 3 200 200 .375 gm In Sodium Chloride 0.9% 100 ml @ 25 mls/hr IVPB Q8HR [facility] Rx# :[id number] Sodium Chloride 0.9% 1, 550 520 100 000 ml @ 50 mls/hr IV . Q20H [facility] Rx#:[id number] Intake, IV Titration 153.405 151.161 Amount Propofol 1,000 mg In 153.405 151.161 Empty Bag 1 bag @ Titrate IV .Q0M [facility] Rx#: [id number] Tube Feeding 405 675 90 Other 700 600 200 Output: Urine 1015 1755 125 Stool 1200 1200 Other: Voiding Method Indwelling Catheter Indwelling Catheter ABP, PAP, CO, CI - Last Documented Arterial Blood Pressure 127/63 - Exam On physical examination, patient appears comfortable in no apparent distress. HEAD: Normocephalic, atraumatic. EYES: Scleral icterus. No conjunctival injection. MOUTH: No lesions, tongue midline, endotracheal tube in place. NECK: Trachea midline, no gross abnormalities. CHEST: Coarse respiratory noises in all lung soni on mechanical ventilation. ABDOMEN: Soft, obese. Bowel sounds are positive. No organomegaly. No guarding or rigidity. EXTREMITIES: Bilateral pedal edema. SKIN: No rashes, jaundice. NEUROLOGIC: Intubated and sedated. - Labs CBC & Chem 7: 02/29/20 04:40 02/29/20 11:10 Labs: Abnormal Lab Results - Last 24 Hours (Table) 02/28/20 02/28/20 02/28/20 Range/Units 08:35 12:02 18:10 WBC (3.8-10.6) k/uL RBC (4.30-5.90) m/uL Hgb (13.0-17.5) gm/dL Hct (39.0-53.0) % MCV (80.0-100.0) fL MCH (25.0-35.0) pg RDW (11.5-15.5) % Plt Count (150-450) k/uL Macrocytosis PT 14.4 H (9.0-12.0) sec INR 1.5 H (<1.2) ABG pH (7.35-7.45) ABG HCO3 (21-25) mmol/L ABG Total CO2 (19-24) mmol/L ABG O2 Saturation (94-97) % Sodium (137-145) mmol/L Potassium (3.5-5.1) mmol/L Chloride (98-107) mmol/L BUN (9-20) mg/dL Creatinine (0.66-1.25) mg/dL Glucose (74-99) mg/dL POC Glucose (mg/dL) 156 H 196 H (75-99) mg/dL Calcium (8.4-10.2) mg/dL Total Bilirubin (0.2-1.3) mg/dL AST (17-59) U/L Ammonia (<30) umol/L Total Protein (6.3-8.2) g/dL Albumin (3.5-5.0) g/dL 02/29/20 02/29/20 02/29/20 Range/Units 00:01 04:40 04:40 WBC 10.8 H (3.8-10.6) k/uL RBC 2.28 L (4.30-5.90) m/uL Hgb 8.4 L (13.0-17.5) gm/dL Hct 25.4 L (39.0-53.0) % MCV 111.7 H (80.0-100.0) fL MCH 36.9 H (25.0-35.0) pg RDW 23.7 H (11.5-15.5) % Plt Count 58 L (150-450) k/uL Macrocytosis Marked A PT (9.0-12.0) sec INR (<1.2) ABG pH (7.35-7.45) ABG HCO3 (21-25) mmol/L ABG Total CO2 (19-24) mmol/L ABG O2 Saturation (94-97) % Sodium 156 H (137-145) mmol/L Potassium 2.8 L (3.5-5.1) mmol/L Chloride 127 H (98-107) mmol/L BUN 69 H (9-20) mg/dL Creatinine 1.32 H (0.66-1.25) mg/dL Glucose 157 H (74-99) mg/dL POC Glucose (mg/dL) 205 H (75-99) mg/dL Calcium 8.1 L (8.4-10.2) mg/dL Total Bilirubin 6.1 H (0.2-1.3) mg/dL AST 111 H (17-59) U/L Ammonia (<30) umol/L Total Protein 6.0 L (6.3-8.2) g/dL Albumin 2.2 L (3.5-5.0) g/dL 02/29/20 02/29/20 02/29/20 Range/Units 04:40 05:55 07:19 WBC (3.8-10.6) k/uL RBC (4.30-5.90) m/uL Hgb (13.0-17.5) gm/dL Hct (39.0-53.0) % MCV (80.0-100.0) fL MCH (25.0-35.0) pg RDW (11.5-15.5) % Plt Count (150-450) k/uL Macrocytosis PT (9.0-12.0) sec INR (<1.2) ABG pH 7.47 H (7.35-7.45) ABG HCO3 26 H (21-25) mmol/L ABG Total CO2 27 H (19-24) mmol/L ABG O2 Saturation 97.4 H (94-97) % Sodium (137-145) mmol/L Potassium (3.5-5.1) mmol/L Chloride (98-107) mmol/L BUN (9-20) mg/dL Creatinine (0.66-1.25) mg/dL Glucose (74-99) mg/dL POC Glucose (mg/dL) 175 H (75-99) mg/dL Calcium (8.4-10.2) mg/dL Total Bilirubin (0.2-1.3) mg/dL AST (17-59) U/L Ammonia 64 H (<30) umol/L Total Protein (6.3-8.2) g/dL Albumin (3.5-5.0) g/dL Microbiology - Last 24 Hours (Table) 02/22/20 14:13 Blood Culture - Final Blood No Growth after 144 hours Assessment and Plan (1) Acute alcoholic hepatitis Narrative/Plan: 54-year-old male with known history of alcohol abuse presenting to the hospital with altered mental status. Likely multifactorial given suspected underlying decompensated cirrhosis, acute alcoholic hepatitis and concern for aspiration p neumonia and sepsis. Currently receiving treatment in the ICU, he remains on broad-spectrum antibiotic therapy and mechanically ventilated. Current Visit: Yes Status: Acute Code(s): K70.10 - ALCOHOLIC HEPATITIS WITHOUT ASCITES SNOMED Code(s): 6037425 (2) Liver cirrhosis Current Visit: Yes Status: Acute Code(s): K74.60 - UNSPECIFIED CIRRHOSIS OF LIVER SNOMED Code(s): 05975704 (3) Ascites Current Visit: Yes Status: Acute Code(s): R18.8 - OTHER ASCITES SNOMED Code(s): 274721236 (4) Hepatic encephalopathy Current Visit: Yes Status: Acute Code(s): K72.90 - HEPATIC FAILURE, UNSPECIFIED WITHOUT COMA SNOMED Code(s): 96690009 (5) Bicytopenia Narrative/Plan: Patient anemic and thrombocytopenic likely related to chronic alcohol use. Stool testing was positive for blood but patient has no signs or symptoms of GI bleeding with normal brown stool noted and fecal management system. Hemoglobin has remained stable. Current Visit: Yes Status: Acute Code(s): D75.89 - OTHER SPECIFIED DISEASES OF BLOOD AND BLOOD-FORMING ORGANS SNOMED Code(s): 71387681 Plan: Supportive care Nothing by mouth, okay for tube feeds as tolerated Continue management per multineedle shirrer service, patient currently intubated and sedated Continue broad-spectrum antibiotic therapy Continue lactulose 4 times a day Xifaxan twice daily Can consider paracentesis when patient is medically stable Patient is on diuretic therapy with Lasix 3 times a day and Aldactone 3 times a day Alcohol abstinence Thank you for allowing us to participate in the care of the patient we will continue to follow
--- NOTE | 2020-02-29 17:50 | P.PN ---
Subjective Progress Note Date: 02/29/20 This patient is a 54-year-old male that orthopedics is following for right foot swelling, ecchymosis. Foot x-rays taken on 02/22/20 showed no signs of fracture or dislocation. X-rays of the right foot and ankle were repeated 02/27/20 with no evidence of fracture or dislocation. There have also been no signs of infection. Patient is examined bedside this morning. Monica is bedside today. He remains intubated. There have been no reported changes in the right foot. Objective - Vital Signs Vital signs: Vital Signs Temp 99.7 F H 02/29/20 16:00 Pulse 98 02/29/20 17:00 Resp 10 L 02/29/20 17:00 BP 108/60 02/29/20 07:00 Pulse Ox 100 02/29/20 17:00 Intake & Output 02/28/20 02/29/20 02/29/20 18:59 06:59 18:59 Intake Total 2091.405 2182.161 2092.411 Output Total 2215 2955 3525 Balance -123.595 -772.839 -1432.589 Weight 87 kg Intake: IV 833 756 758 Dextrose 5% in Water 1, 525 000 ml @ 75 mls/hr IV . [id number] [facility] Rx#:[id number] Normal Saline Pressure 83 36 33 Bag Piperacillin-Tazobactam 3 200 200 .375 gm In Sodium Chloride 0.9% 100 ml @ 25 mls/hr IVPB Q8HR [facility] Rx# :[id number] Sodium Chloride 0.9% 1, 550 520 200 000 ml @ 50 mls/hr IV . Q20H [facility] Rx#:[id number] Intake, IV Titration 153.405 151.161 239.411 Amount Piperacillin-Tazobactam 3 100 .375 gm In Sodium Chloride 0.9% 100 ml @ 25 mls/hr IVPB Q8HR [facility] Rx# :[id number] Propofol 1,000 mg In 153.405 151.161 139.411 Empty Bag 1 bag @ Titrate IV .Q0M [facility] Rx#: [id number] Tube Feeding 405 675 495 Other 700 600 600 Output: Urine 1015 1755 1125 Stool 1200 1200 2400 Other: Voiding Method Indwelling Catheter Indwelling Catheter Indwelling Catheter ABP, PAP, CO, CI - Last Documented Arterial Blood Pressure 134/61 - Exam On examination, the patient is currently intubated. Bilateral feet are currently in padded boots. On inspection of the right foot, there is diffuse swelling and ecchymosis of the foot and ankle. This appears to be resolving and stable. There is also localized swelling at the dorsum of the foot at the location of the 3-5th metatarsal heads. No wounds and skin is intact. No erythema or warmth of the foot. No signs of infection. The right foot is warm and well-perfused, dorsalis pedis pulse +2. No swelling or erythema about the calf. No issues with PROM of the toes or ankle. Motor and sensory function unable to be assessed. - Labs CBC & Chem 7: 02/29/20 04:40 02/29/20 11:10 Labs: Abnormal Lab Results - Last 24 Hours (Table) 02/28/20 02/29/20 02/29/20 Range/Units 18:10 00:01 04:40 WBC 10.8 H (3.8-10.6) k/uL RBC 2.28 L (4.30-5.90) m/uL Hgb 8.4 L (13.0-17.5) gm/dL Hct 25.4 L (39.0-53.0) % MCV 111.7 H (80.0-100.0) fL MCH 36.9 H (25.0-35.0) pg RDW 23.7 H (11.5-15.5) % Plt Count 58 L (150-450) k/uL Macrocytosis Marked A ABG pH (7.35-7.45) ABG HCO3 (21-25) mmol/L ABG Total CO2 (19-24) mmol/L ABG O2 Saturation (94-97) % Sodium (137-145) mmol/L Potassium (3.5-5.1) mmol/L Chloride (98-107) mmol/L BUN (9-20) mg/dL Creatinine (0.66-1.25) mg/dL Glucose (74-99) mg/dL POC Glucose (mg/dL) 196 H 205 H (75-99) mg/dL Calcium (8.4-10.2) mg/dL Total Bilirubin (0.2-1.3) mg/dL AST (17-59) U/L Ammonia (<30) umol/L Total Protein (6.3-8.2) g/dL Albumin (3.5-5.0) g/dL 02/29/20 02/29/20 02/29/20 Range/Units 04:40 04:40 05:55 WBC (3.8-10.6) k/uL RBC (4.30-5.90) m/uL Hgb (13.0-17.5) gm/dL Hct (39.0-53.0) % MCV (80.0-100.0) fL MCH (25.0-35.0) pg RDW (11.5-15.5) % Plt Count (150-450) k/uL Macrocytosis ABG pH (7.35-7.45) ABG HCO3 (21-25) mmol/L ABG Total CO2 (19-24) mmol/L ABG O2 Saturation (94-97) % Sodium 156 H (137-145) mmol/L Potassium 2.8 L (3.5-5.1) mmol/L Chloride 127 H (98-107) mmol/L BUN 69 H (9-20) mg/dL Creatinine 1.32 H (0.66-1.25) mg/dL Glucose 157 H (74-99) mg/dL POC Glucose (mg/dL) 175 H (75-99) mg/dL Calcium 8.1 L (8.4-10.2) mg/dL Total Bilirubin 6.1 H (0.2-1.3) mg/dL AST 111 H (17-59) U/L Ammonia 64 H (<30) umol/L Total Protein 6.0 L (6.3-8.2) g/dL Albumin 2.2 L (3.5-5.0) g/dL 02/29/20 02/29/20 Range/Units 07:19 11:58 WBC (3.8-10.6) k/uL RBC (4.30-5.90) m/uL Hgb (13.0-17.5) gm/dL Hct (39.0-53.0) % MCV (80.0-100.0) fL MCH (25.0-35.0) pg RDW (11.5-15.5) % Plt Count (150-450) k/uL Macrocytosis ABG pH 7.47 H (7.35-7.45) ABG HCO3 26 H (21-25) mmol/L ABG Total CO2 27 H (19-24) mmol/L ABG O2 Saturation 97.4 H (94-97) % Sodium (137-145) mmol/L Potassium (3.5-5.1) mmol/L Chloride (98-107) mmol/L BUN (9-20) mg/dL Creatinine (0.66-1.25) mg/dL Glucose (74-99) mg/dL POC Glucose (mg/dL) 197 H (75-99) mg/dL Calcium (8.4-10.2) mg/dL Total Bilirubin (0.2-1.3) mg/dL AST (17-59) U/L Ammonia (<30) umol/L Total Protein (6.3-8.2) g/dL Albumin (3.5-5.0) g/dL Microbiology - Last 24 Hours (Table) 02/22/20 14:13 Blood Culture - Final Blood No Growth after 144 hours Assessment and Plan Assessment: Right foot swelling, ecchymosis Plan: - Continue with conservative treatment at this time. Continue monitoring of the right foot and elevation for swelling control. No plans for immediate surgical intervention. - We will continue to follow patient while he remains inpatient and make recommendations as needed.
[2020-02-29 18:07] LABS: Glucose,Whole Blood 230 mg/dL (75-99)
[2020-03-01 00:27] LABS: Glucose,Whole Blood 184 mg/dL (75-99)
[2020-03-01] MEDS: methylPREDNISolone SOD SUCCI 40 MG/ML 1 ML VIAL IV SCH ×4 (03:04→23:49)
[2020-03-01] MEDS: FUROSEMIDE 10 MG/ML 4 ML VIAL IV SCH (03:04)
[2020-03-01] MEDS: INSULIN ASPART (NovoLOG) 100 UNIT/ML VIAL SQ SCH ×5 (03:05→23:48)
[2020-03-01] MEDS: DEXTROSE 5% IN WATER 1,000 ML IV SCH ×3 (03:05→21:27)
[2020-03-01] MEDS: PIPERACILLIN-TAZOBACTAM 3.375 GM in SODIUM CHLORIDE 0.9% 100 ML IVPB SCH (03:07)
[2020-03-01] MEDS: NOREPINEPHRINE 4 MG in SODIUM CHLORIDE 0.9% 250 ML IV SCH (03:07)
[2020-03-01] MEDS: PROPOFOL 1,000 MG in EMPTY BAG 1 BAG IV SCH ×3 (03:07→20:00)
[2020-03-01 05:20] LABS: ABG Base Excess 2.6 mmol/L; ABG HCO3 27 mmol/L (21-25); ABG Oxygen Saturation 97.4 % (94-97); ABG PCO2 38 mmHg (35-45); ABG PH 7.45 (7.35-7.45); ABG PO2 93 mmHg (83-108); ABG TCO2 28 mmol/L (19-24)
[2020-03-01 05:33] LABS: Allen Test Performed? no
[2020-03-01 06:29] LABS: Anisocytosis Moderate; Basophils % (A) 0 %; Eosinophils # (A) 0.1 k/uL (0-0.7); Eosinophils % (A) 1 %; HCT 25.1 % (39.0-53.0); Hypochromasia Moderate; Lymphocytes # (A) 0.8 k/uL (1.0-4.8); Lymphocytes % (A) 6 %; MCH 35.7 pg (25.0-35.0); MCHC 31.9 g/dL (31.0-37.0); Mean Platelet Volume 11.4; Monocytes # (A) 0.7 k/uL (0-1.0); Monocytes % (A) 5 %; Neutrophils # (A) 12.1 k/uL (1.3-7.7); Neutrophils % (A) 86 %; Platelet Count 62 k/uL (150-450); RBC 2.24 m/uL (4.30-5.90); RDW 23.1 % (11.5-15.5)
[2020-03-01 06:30] LABS: Macrocytosis Marked
[2020-03-01 06:39] LABS: Calcium 8.1 mg/dL (8.4-10.2); Potassium 3.3 mmol/L (3.5-5.1)
[2020-03-01] MEDS: fentaNYL (PF) 1,000 MCG in SODIUM CHLORIDE 0.9% 80 ML IV SCH (06:47)
--- NOTE | 2020-03-01 07:38 | XR ---
EXAMINATION TYPE: XR chest 1V portable DATE OF EXAM: 03/01/2020 COMPARISON: 02/29/2020 HISTORY: SOB, Follow Up FINDINGS: Indwelling tubes and catheters are unchanged. No change in bibasilar opacities. Stable appearance of the cardio-mediastinal structures at this time. Pleural effusion unchanged. IMPRESSION: 1. Stable portable chest. Clinical correlation and follow up until resolution is recommended.
[2020-03-01] MEDS: LACTULOSE 20 GM/30 ML CUP PO SCH ×4 (08:02→21:27)
[2020-03-01] MEDS: PANTOPRAZOLE 40 MG/10 ML VIAL IVP SCH ×2 (08:02→21:27)
[2020-03-01] MEDS: RIFAXIMIN 550 MG TABLET PO SCH ×2 (08:03→21:27)
[2020-03-01] MEDS: CHLORHEXIDINE GLUCONATE 15 ML CUP MUCOUS MEM SCH ×2 (08:03→21:27)
[2020-03-01] MEDS: POTASSIUM BICARBONATE/CIT AC 20 MEQ TABLET.EFF NG-TUBE SCH ×2 (08:05→10:51)
[2020-03-01] MEDS: IPRATROPIUM-ALBUTEROL 3 ML NEB INHALATION SCH ×4 (08:23→19:21)
--- NOTE | 2020-03-01 09:45 | P.PN ---
Subjective Progress Note Date: 03/01/20 Principal diagnosis: Acute liver failure, acute hypoxic respiratory failure This is a 54-year-old white male, history of alcohol abuse, patient was brought into the ER with change in mental status according to EMS. Patient could not give any history, he was a very poor historian upon arrival to the ER. Patient is supposedly a daily drinker, however from my review of the chart, I saw this patient back on 11/11/19, patient presented back then with multiple posterior lateral rib fractures on the right. Apparently he fell in his bathroom, and landed on the side of the top sustaining multiple rib fractures. Patient sustained rib fractures of 910 and 11 ribs. Patient is also known to have history of severe emphysema/COPD. He is legally blind. He has history of pericarditis, anxiety, and history of degenerative joint disease. Patient was discharged home on 11/12/19. Drug screen in the ER was positive for tricyclic antidepressants and positive for benzodiazepines. Rest of the drug screen was basically negative. ABG in the ER showed a pO2 of 63 pCO2 of 29 pH of 7.49. Patient was also noted to have elevated INR of 3.7. Low hemoglobin of 7.0 although his baseline hemoglobin from 2 months ago was 15.1. Ammonia level was 91. Total bilirubin was 14.9, and his liver enzymes were a bit elevated. Normal amylase and lipase were noted. Gallbladder ultrasound showed abdominal ascites. Chest x-ray showed bilateral diffuse infiltrates. Patient was presumed septic upon presentation, received fluid boluses of 2500 ML's. Patient was found to have hepatic encephalopathy liver failure, bilateral pneumonia, GI hemorrhage and sepsis. Early this morning, patient was intubated, placed on mechanical ventilation, and he was aware of the patient since admission. Presently the patient is on assist control rate of 28 tidal volume is 500 FiO2 is 100% PEEP of 5. ABG showed a pO2 of 170 pCO2 of 31 pH of 7.46. Hence I cut down the FiO2 to 50%, increased the PEEP to 8, cut down the tidal volume to 450, and decrease the respiratory rate to 26. Patient is on Sandostatin for his GI bleeding, and he is yet to be seen by gastroenterology on consultation is also on Protonix. He is on lactulose for his elevated ammonia level. And he is empirically on Zosyn for presumptive aspiration pneumonia. Echocardiogram showed evidence of good LV function. And mild valvular heart disease. BNP level was borderline elevated at 910 Patient was reevaluated today on 02/24/20, remains on mechanical ventilation. He is presently on assist control rate of 26 tidal volume is 450 FiO2 of 60% and PEEP of 8. However I increased his PEEP to 12 and cut down his FiO2 to 50%. At night the patient developed worsening agitation, and Stacking his breaths, was not synchronous with mechanical ventilation, hence had to place the patient on Nimbex. Today I plan to discontinue Nimbex and place him on fentanyl 25 g per hour. Patient will be started on tube feeding, and I cut down his IV fluid to 50 MLS per hour. Remains on propofol at 60 mcg/kg/m, Nimbex which will be disco ntinued, but creatinine which was discontinued this morning, and norepinephrine at 0.06 mcg/kg/m. Enteral feeding to be started today by slot machine repairer. Patient remains on antibiotics, remains on lactulose for his elevated ammonia level which is 80 today. And he remains on Protonix. Chest x-ray showed more consolidation noted bilaterally in both lungs more so in the left lung. Bilateraldisease is noted consistent with aspiration pneumonia. Sputum cultures and blood cultures so far remain on diagnostic. ABG today showed a pO2 of 67 pCO2 of 39 pH of 7.33. WBC count is 14.7 hemoglobin is 8.6 platelets are 66,000 and INR is 2.1. Electrolytes are basically normal renal profile showed beer of 25 creatinine 0.94. Patient was reevaluated today on 02/25/20, remains in the intensive care unit, remains on mechanical ventilation. His ventilator settings are assist control rate of 26, tidal volume is 450 FiO2 is 50% and PEEP is at 12. ABG showed a pO2 of 65 pCO2 of 37 pH of 7.36, hence no change was made in the ventilator settings. Patient remains on norepinephrine at 0.09 mcg/kg/m, propofol at 45 mcg/kg/m, fentanyl at 0.5 mcg/kg/h. Remains on enteral feeding at 30 MLS per hour goal is 45. Remains on Zosyn for empiric coverage of aspiration pneumonia. Remains on lactulose and the dose was increased to 45 ML 4 times a day, and added Xifaxan at 550 mg twice a day. His lactulose does not seem to be inducing enough diarrhea did get his ammonia level down. Continues to have significantly elevated ammonia level in spite of lactulose for the last 2 days. Patient continues to have ascites. And no plans for paracentesis as recommended by gastroenterology at this point. Chest x-ray showed very minimal improvement if any in his bilateral infiltrates. The bilateral infiltrates are suggestive of aspiration pneumonia. Obviously the patient is known to have history of alcoholism, and he presented with alcoholic liver hepatitis, and hepatic encephalopathy. Labs today were all reviewed WBC is 14.1 hemoglobin is 9.4 platelets are 75,000 INR is 1.7. Electrolytes are unremarkable except for low potassium of 3.4 BUN of 27 creatinine 1.32. Liver enzymes are borderline elevat ed. Total bilirubin is improving down to 8.9 today. Albumin is 2.3 Patient was reevaluated today on 02/26/20, remains in the ICU, intubated, mechanically ventilated. Patient is on assist control rate of 26 tidal volume 450 FiO2 50% and PEEP is 12. Chest x-ray is showing definite improvement, zeng rosio his ABG is basically about the same with a pO2 of 68 pCO2 of 38 and pH of 7.38. His ammonia level is on the rise in spite of the fact that the patient is on relatively high dose of lactulose and he is also on Xifaxan. Patient remains on propofol at 40 mcg/kg/m, fentanyl at 0.5 mcg/kg/h, he is on very small dose of norepinephrine at 0.01 mcg/kg/m, IV fluid is at KVO, and he is also on Zosyn for presumptive aspiration pneumonia. Remains on diuretics in the form of Lasix, Aldactone. His Lasix was increased to 40 mg 3 times a day, and he is on Aldactone via nasogastric tube. Patient was taken off sedation today, however he became extremely agitated, tachypneic, tachycardic, hence we had to place him back on sedation and continued assist control mode of mechanical ventilation. Chest x-ray again showed improvement. WBC count today is 11 hemoglobin is 8.5 his INR is 1.7 basic metabolic profile is improving, creatinine however is up to 1.40, and the patient obviously developed acute kidney injury. This could very well be related to his sepsis, and related to his hypotension requiring norepinephrine. Cultures including blood cultures and sputum cultures have been negative. Patient was reevaluated today in the ICU, remains intubated and mechanically ventilated. His ventilator settings are assist control rate of 26 tidal volume is 450 FiO2 is 50% and PEEP is at 12 chest x-ray showed dramatic improvement. His ABG is significantly improved hence I recommended cutting down the PEEP to 8. His ammonia level is significantly improved today, it is down to 69. Sodium seems to be creeping up a little bit, and I recommended free water flushes via orogastric tube. Patient is on propofol at 50 mcg/kg/m, his tube feeding is presently on hold because of increased residual. Patient was given a sedation holiday, however when he went off propofol, the patient became extremely agitated, restless, biting on the endotracheal tube, tachycardic, tachypneic, and was extremely agitated. Hence I recommended placing him back on propofol, and not quite ready for weaning. Labs were all reviewed today. And addressed accordingly including his elevated sodium and elevated BUN of 49 creatinine 1.46. Chest x-ray showed significant improvement in his bilateral infiltrates/aspiration pneumonia. Patient was reevaluated today on 02/28/20, remains in the ICU, intubated and mechanically ventilated. His ventilator settings are assist control rate of 26 FiO2 50% tidal volume of 450 PEEP is at 8 and today I cut down his FiO2 to 45% and kept him on a PEEP of 8. ABG this morning showed a pO2 of 102 pCO2 of 35 pH of 7.45. Patient has significantly elevated sodium today of 150 potassium is low at 2.8 ammonia level remains high at 73. Patient is not requiring any pressors, he is on propofol at 34 mcg/kg/m. Patient is on enteral feeding. I do plan to wean the patient off propofol sometime today, and assess mental status again. This was attempted yesterday, but the patient didn't do well, I have also recommended free water flushes to correct his hyper natremia. The patient is seen today 02/29/2020 in follow-up in the intensive care unit. He remains intubated on mechanical vent. Current settings are assist control at a rate of 26, FiO2 45% tidal volume 450 and a PEEP of 8. Morning blood gases reveal a P O2 of 93, pCO2 of 35 and a pH of 7.47. Chest x-ray reveals stable bilateral atelectasis/infiltrate. He is sedated on propofol at 50 mcg/kg/m. Antibiotics in the form of Zosyn. He remains on IV diuretics. He is tolerating his tube feedings. He remains hypernatremic despite free water. IVs changed to D5W at 75 ML's per hour. Sodium 156. Potassium 2.8. Creatinine 1.32. Glucose 157. White count 10.8. Hemoglobin 8.4. Platelet count 58,000. On 03/01/2020 patient seen in follow-up in the intensive care unit, he remains sedated, intubated on mechanical ventilator, current vent settings are assist control mode of ventilation with a rate of 12, tidal volume is 450, FiO2 45% and PEEP of 5, this morning blood gases show pO2 of 93, pCO2 38, pH of 7.45. Current IV fluids include D5 W5 to 75 ML per hour, and Diprivan at 45 mics per kilo per minute, no vasoactive drips, tube feedings of vital high protein at a rate of 45 with a goal of 45. Today's chest x-ray has been reviewed showing stable appearance of the bibasilar opacities. T-max in the last 24 hours was 99.7F, afebrile this morning, 1 sputum cultures have shown no growth, today's blood work has been reviewed, limits according to 14.0, hemoglobin of 8.0, platelet count is 62, sodium is 159 is on D5W at 75 ML per hour, in addition to free water flushes with 200 mL every 4 hours, patient continues on lactulose and rifaximin, and is having lactulose induced diarrhea and he had 2.4 L in liquid stool output in the last 24 hours. Patient apparently has failed spontaneous breathing trials for last 4 days. We will proceed with a spontaneous awakening and spontaneous breathing trials again today, we will speak to the family about placement of tracheostomy and PEG tube insertion. Objective - Vital Signs Vital signs: Vital Signs Temp 99.3 F 03/01/20 08:00 Pulse 101 H 03/01/20 09:00 Resp 14 03/01/20 09:00 BP 108/60 02/29/20 07:00 Pulse Ox 100 03/01/20 09:00 Intake & Output 02/29/20 03/01/20 03/01/20 18:59 06:59 18:59 Intake Total 2215.411 1221.589 648.490 Output Total 3525 850 1750 Balance -1309.589 371.589 -1101.510 Weight 88.5 kg Intake: IV 836 936 234 Dextrose 5% in Water 1, 600 900 225 000 ml @ 75 mls/hr IV . [id number] JARED Rx#:[id number] Normal Saline Pressure 36 36 9 Bag Sodium Chloride 0.9% 1, 200 000 ml @ 50 mls/hr IV . Q20H JARED Rx#:[id number] Intake, IV Titration 239.411 60.589 124.490 Amount Piperacillin-Tazobactam 3 100 .375 gm In Sodium Chloride 0.9% 100 ml @ 25 mls/hr IVPB Q8HR JARED Rx# :[id number] Propofol 1,000 mg In 139.411 60.589 124.490 Empty Bag 1 bag @ Titrate IV .Q0M JARED Rx#: [id number] Tube Feeding 540 225 90 Other 600 200 Output: Urine 1125 850 250 Stool 2400 1500 Other: Voiding Method Indwelling Catheter Indwelling Catheter Indwelling Catheter ABP, PAP, CO, CI - Last Documented Arterial Blood Pressure 141/61 - Exam GENERAL EXAM: Sedated, 54-year-old white male, on mechanical ventilator, with settings of assist control rate of 12, tidal volume is 450, FiO2 45% and PEEP of 8 comfortable in no apparent distress. HEAD: Normocephalic/atraumatic. EYES: Normal reaction of pupils, equal size. Conjunctiva pink, sclera white. NOSE: Clear with pink turbinates. THROAT: No erythema or exudates. NECK: No masses, no JVD, no thyroid enlargement, no adenopathy. CHEST: No chest wall deformity. Symmetrical expansion. LUNGS: Equal air entry with no crackles, wheeze, rhonchi or dullness. CVS: Regular rate and rhythm, normal S1 and S2, no gallops, no murmurs, no rubs ABDOMEN: Soft, nontender. No hepatosplenomegaly, normal bowel sounds, no guarding or rigidity. EXTREMITIES: No clubbing, no edema, no cyanosis, 2+ pulses and upper and lower extremities. MUSCULOSKELETAL: Muscle strength and tone normal. SPINE: No scoliosis or deformity SKIN: No rashes CENTRAL NERVOUS SYSTEM: Sedated and intubated. No focal deficits, tone is normal in all 4 extremities. - Labs CBC & Chem 7: 03/01/20 06:15 03/01/20 06:15 Labs: Abnormal Lab Results - Last 24 Hours (Table) 02/29/20 02/29/20 03/01/20 Range/Units 11:58 18:05 00:26 WBC (3.8-10.6) k/uL RBC (4.30-5.90) m/uL Hgb (13.0-17.5) gm/dL Hct (39.0-53.0) % MCV (80.0-100.0) fL MCH (25.0-35.0) pg RDW (11.5-15.5) % Plt Count (150-450) k/uL Neutrophils # (1.3-7.7) k/uL Lymphocytes # (1.0-4.8) k/uL Macrocytosis ABG HCO3 (21-25) mmol/L ABG Total CO2 (19-24) mmol/L ABG O2 Saturation (94-97) % Sodium (137-145) mmol/L Potassium (3.5-5.1) mmol/L Chloride (98-107) mmol/L BUN (9-20) mg/dL Glucose (74-99) mg/dL POC Glucose (mg/dL) 197 H 230 H 184 H (75-99) mg/dL Calcium (8.4-10.2) mg/dL 03/01/20 03/01/20 03/01/20 Range/Units 05:19 06:15 06:15 WBC 14.0 H (3.8-10.6) k/uL RBC 2.24 L (4.30-5.90) m/uL Hgb 8.0 L (13.0-17.5) gm/dL Hct 25.1 L (39.0-53.0) % MCV 112.0 H (80.0-100.0) fL MCH 35.7 H (25.0-35.0) pg RDW 23.1 H (11.5-15.5) % Plt Count 62 L (150-450) k/uL Neutrophils # 12.1 H (1.3-7.7) k/uL Lymphocytes # 0.8 L (1.0-4.8) k/uL Macrocytosis Marked A ABG HCO3 27 H (21-25) mmol/L ABG Total CO2 28 H (19-24) mmol/L ABG O2 Saturation 97.4 H (94-97) % Sodium 159 H (137-145) mmol/L Potassium 3.3 L (3.5-5.1) mmol/L Chloride 128 H (98-107) mmol/L BUN 78 H (9-20) mg/dL Glucose 138 H (74-99) mg/dL POC Glucose (mg/dL) (75-99) mg/dL Calcium 8.1 L (8.4-10.2) mg/dL Assessment and Plan Plan: Assessment: Acute hypoxic respiratory failure, suspect aspiration pneumonia. Chest x-ray has shown improvement over the last 2 days, and this is also reflected in the improvement noted in the ABG. Acute sepsis, possible septic shock, patient required pressors and remains on norepinephrine today. likely source is aspiration pneumonia, although abdominal source is not entirely ruled out. Blood cultures and sputum cultures remain negative. Alcohol liver disease with ascites. Jaundice, and elevated liver enzymes. Blood loss anemia, most likely the patient has acute or subacute GI bleeding, GI is following. Acute hepatic encephalopathy with significantly elevated ammonia level. Slightly increased today compared to yesterday, it is 73. Recent history of fall about 2 months ago, and multiple right-sided rib fractures. History of alcoholic neuropathy. History of pericarditis Chronic back pain History of restless leg syndrome. Acute kidney injury secondary to sepsis and septic shock. Strongly doubt hepatorenal syndrome. Improved Hypernatremia, related to free water deficit. Patient continues on D5W and free water flushes Plan: We will discontinue the Lasix and Aldactone, we will increase the free water flushes to 400 mL every 4 hours, increase the D5W to 125 ML per hour, recheck electrolytes in the morning, correct hypokalemia per protocol. We'll proceed with another spontaneous awakening and spontaneous breathing trial with pressure support of 8 and CPAP. Continue nutritional support, we'll recheck ammonia level, and continue with lactulose and rifaximin. We will place a consult to Gen. surgery for tracheostomy and PEG tube placement. We discussed patient's condition and discussed this patient's family supposed to discuss it with other family members and consider patient's overall very guarded prognosis, possibility of hospice and palliative care was recommended however we will continue supportively we treat the patient. I performed a history & physical examination of the patient and discussed their management with my nurse practitioner, Mary Kay Nieto. I reviewed the nurse practitioner's note and agree with the documented findings and plan of care. Lung sounds are positive for diminished breath sounds. The findings and the impression was discussed with the patient. I attest to the documentation by the nurse practitioner. Time with Patient: Greater than 30
[2020-03-01 11:57] LABS: Glucose,Whole Blood 217 mg/dL (75-99)
--- NOTE | 2020-03-01 12:37 | P.GSCN ---
History of Present Illness Consult date: 03/01/20 Reason for Consult: Respiratory failure, malnutrition History of present illness: This a 54-year-old male who's been admitted to the ICU. Patient has had a basal lamella. Patient is requiring prolonged ventilation. I've being asked to see h im him regarding tracheostomy and PEG tube placement. Past Medical History Past Medical History: Asthma, Eye Disorder, Osteoarthritis (OA), Renal Disease Additional Past Medical History / Comment(s): Pt admitted to [facility] on 10/01/19 with bilateral lower extremity pain/possible alcohol induced neuropathy/possible opiate withdrawal/alcohol abuse possible DTs/coagulopathy, elevated LFTs, venous insufficiency. Other Hx: Unsteady gait/falls, ETOH abuse with withdrawal symptoms in the past pt states-tremors, bilateral leg pain/numbness, chronic renal disease stage I, pericarditis, bilateral macular degeneration/legally blind, chronic back pain, RLS, bilateral carpal tunnel syndrome, past infected sebaceous cyst on back History of Any Multi-Drug Resistant Organisms: None Reported Past Surgical History: Orthopedic Surgery Additional Past Surgical History / Comment(s): Right hand surgery d/t injury Past Anesthesia/Blood Transfusion Reactions: No Reported Reaction Past Psychological History: Anxiety, Depression Additional Psychological History / Comment(s): Pt resides with his laura. He has been using her walker on occasion. 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 Smoking Status: Light tobacco smoker Past Alcohol Use History: Abuse, Daily Additional Past Alcohol Use History / Comment(s): Pt started smoking in 1981 and states that he has recently cut down to a pack lasting 4-5 weeks. Pt states he has hx of alcohol abuse-8 beers a day but has not drank in a few weeks. Past Drug Use History: None Reported Additional Drug Use History / Comment(s): Pt smoked marijuana as a teen. - Past Family History Father Family Medical History: Cancer Additional Family Medical History / Comment(s): Father of esophageal cancer. Mother Family Medical History: No Reported History Additional Family Medical History / Comment(s): Mopther is healthy Medications and Allergies Home Medications Medication Instructions Recorded Confirmed Type Cetirizine HCl [Zyrtec] 10 mg PO DAILY 10/01/19 02/22/20 History Omeprazole 20 mg PO DAILY 10/01/19 02/22/20 History Folic Acid 1 mg PO DAILY #30 tablet 10/03/19 02/22/20 Rx Multivitamins, Thera [Multivitamin 1 tab PO DAILY #30 tablet 10/03/19 02/22/20 Rx (formulary)] Thiamine [Vitamin B-1] 100 mg PO DAILY #30 tab 10/03/19 02/22/20 Rx Albuterol Inhaler [Ventolin Hfa 1 - 2 puff INHALATION RT-Q4H PRN 02/22/20 02/22/20 History Inhaler] Allergies Allergy/AdvReac Type Severity Reaction Status Date / Time No Known Allergies Allergy Verified 02/22/20 14:27 Surgical - Exam Vital Signs Temp Pulse Resp BP Pulse Ox 99.4 F 116 H 26 H 102/63 89 L 02/22/20 13:54 02/22/20 13:54 02/22/20 13:54 02/22/20 13:54 02/22/20 13:54 On ventilator - General no distress - Eyes PERRL - ENT normal pinna - Neck no masses - Respiratory normal expansion - Cardiovascular Rhythm: regular - Abdomen Abdomen: soft, non tender Results - Labs 03/01/20 06:15 03/01/20 06:15 Abnormal Lab Results - Last 24 Hours (Table) 02/29/20 03/01/20 03/01/20 Range/Units 18:05 00:26 05:19 WBC (3.8-10.6) k/uL RBC (4.30-5.90) m/uL Hgb (13.0-17.5) gm/dL Hct (39.0-53.0) % MCV (80.0-100.0) fL MCH (25.0-35.0) pg RDW (11.5-15.5) % Plt Count (150-450) k/uL Neutrophils # (1.3-7.7) k/uL Lymphocytes # (1.0-4.8) k/uL Macrocytosis ABG HCO3 27 H (21-25) mmol/L ABG Total CO2 28 H (19-24) mmol/L ABG O2 Saturation 97.4 H (94-97) % Sodium (137-145) mmol/L Potassium (3.5-5.1) mmol/L Chloride (98-107) mmol/L BUN (9-20) mg/dL Glucose (74-99) mg/dL POC Glucose (mg/dL) 230 H 184 H (75-99) mg/dL Calcium (8.4-10.2) mg/dL Ammonia (<30) umol/L 03/01/20 03/01/20 03/01/20 Range/Units 06:15 06:15 10:00 WBC 14.0 H (3.8-10.6) k/uL RBC 2.24 L (4.30-5.90) m/uL Hgb 8.0 L (13.0-17.5) gm/dL Hct 25.1 L (39.0-53.0) % MCV 112.0 H (80.0-100.0) fL MCH 35.7 H (25.0-35.0) pg RDW 23.1 H (11.5-15.5) % Plt Count 62 L (150-450) k/uL Neutrophils # 12.1 H (1.3-7.7) k/uL Lymphocytes # 0.8 L (1.0-4.8) k/uL Macrocytosis Marked A ABG HCO3 (21-25) mmol/L ABG Total CO2 (19-24) mmol/L ABG O2 Saturation (94-97) % Sodium 159 H (137-145) mmol/L Potassium 3.3 L (3.5-5.1) mmol/L Chloride 128 H (98-107) mmol/L BUN 78 H (9-20) mg/dL Glucose 138 H (74-99) mg/dL POC Glucose (mg/dL) (75-99) mg/dL Calcium 8.1 L (8.4-10.2) mg/dL Ammonia 44 H (<30) umol/L 03/01/20 Range/Units 11:55 WBC (3.8-10.6) k/uL RBC (4.30-5.90) m/uL Hgb (13.0-17.5) gm/dL Hct (39.0-53.0) % MCV (80.0-100.0) fL MCH (25.0-35.0) pg RDW (11.5-15.5) % Plt Count (150-450) k/uL Neutrophils # (1.3-7.7) k/uL Lymphocytes # (1.0-4.8) k/uL Macrocytosis ABG HCO3 (21-25) mmol/L ABG Total CO2 (19-24) mmol/L ABG O2 Saturation (94-97) % Sodium (137-145) mmol/L Potassium (3.5-5.1) mmol/L Chloride (98-107) mmol/L BUN (9-20) mg/dL Glucose (74-99) mg/dL POC Glucose (mg/dL) 217 H (75-99) mg/dL Calcium (8.4-10.2) mg/dL Ammonia (<30) umol/L Diabetes panel 03/01/20 Range/Units 06:15 Sodium 159 H (137-145) mmol/L Potassium 3.3 L (3.5-5.1) mmol/L Chloride 128 H (98-107) mmol/L Carbon Dioxide 27 (22-30) mmol/L BUN 78 H (9-20) mg/dL Creatinine 1.22 (0.66-1.25) mg/dL Glucose 138 H (74-99) mg/dL Calcium 8.1 L (8.4-10.2) mg/dL Calcium panel 03/01/20 Range/Units 06:15 Calcium 8.1 L (8.4-10.2) mg/dL Pituitary panel 03/01/20 Range/Units 06:15 Sodium 159 H (137-145) mmol/L Potassium 3.3 L (3.5-5.1) mmol/L Chloride 128 H (98-107) mmol/L Carbon Dioxide 27 (22-30) mmol/L BUN 78 H (9-20) mg/dL Creatinine 1.22 (0.66-1.25) mg/dL Glucose 138 H (74-99) mg/dL Calcium 8.1 L (8.4-10.2) mg/dL Adrenal panel 03/01/20 Range/Units 06:15 Sodium 159 H (137-145) mmol/L Potassium 3.3 L (3.5-5.1) mmol/L Chloride 128 H (98-107) mmol/L Carbon Dioxide 27 (22-30) mmol/L BUN 78 H (9-20) mg/dL Creatinine 1.22 (0.66-1.25) mg/dL Glucose 138 H (74-99) mg/dL Calcium 8.1 L (8.4-10.2) mg/dL Assessment and Plan Assessment: Respiratory failure. Patient be scheduled for tracheostomy. Malnutrition patient will be scheduled for PEG tube placement.
--- NOTE | 2020-03-01 13:36 | P.PN ---
Subjective Progress Note Date: 03/01/20 This is a 54-year-old gentleman, history of polysubstance abuse including alcohol abuse , falls with recent rib fractures, legally blind, osteoarthritis and multiple other medical issues presented to the ER with changes in mental status 2 days. Drug screen positive for tricyclics and benzos, serum alcohol less than 10. UA reported dark brown cloudy urine with occasional bacteria, hyaline casts, 2 WBCs, trace leukocytes, 4+ bilirubin, negative for nitrates. Ammonia level 91, T bili 14.9, currently 15.8 , elevated LFTs .Gallbladder ultrasound reporting abdominal ascites, abdominal x-ray nonacute, right foot x- ray reported no fracture, soft tissue swelling, EKG reported sinus tachycardia, troponin normal, BNP 910, echo reported normal LV function, EF 60-65% ,lactic acid 2.1 now down to 1.7, BUN 25, creatinine 0.8 chest x-ray reporting moderate pulmonary interstitial and airspace edema significantly worse than yesterday, pulmonary edema. ABGs noted. INR on admission 3.7, down to 2.2 Sepsis protocol, Received IV fluid resuscitation, IV antibiotics, cultures drawn. Developed respiratory failure, requiring intubation during the night. Currently on Sandostatin drip. 3 maroon stools during the night. Received 4 units of FFP and 2 units of packed RBCs to date. Hemoglobin currently 8.5. And had required pressor support with Levophed off since . Maintained on IV fluid resuscit ation. Telemetry sinus rhythm. Potassium 3.2, magnesium 1.7. 02/24/2020 chest x-ray reporting persistent bilateral scattered airspace infiltrates, pleural effusion unchanged. Ventilator dependent, on FiO2 of 50 with PEEP increased to 12. Continues on lactulose with ammonia down to 80. T bili decreased to 11.3, LFTs improving. No further maroon stools. Small black stool this morning. Hemoglobin 8.6. Telemetry sinus rhythm to sinus tach. Sandostatin drip discontinued this morning. Last night patient asynchronous with vent, stacking breaths, Nimbex drip initiated. This morning Nimbex discontinued, changed to fentanyl drip. Requiring pressor support, Levophed resumed. Received vitamin K yesterday, INR 2.1. Marginal urine output, IV fluids decreased, and Lasix IV push added to med regime. Tube feedings ordered. Afebrile, WBC 14.7. Sputum culture pending, preliminary blood cultures negative at 48 hours. ABGs noted. 02/25/2020 yesterday Lasix and Aldactone initiated, creatinine mildly worsened up to 1.32. Ammonia increased up to 89, lactulose increased. No further maroon stools, hemoglobin increased to 9.4, platelets increased to 75. T bili trending down, 8.9, LFTs improving. Potassium 3.4. Chest x-ray reporting improving left lower lobe aeration. Right foot evaluated by orthopedic surgery, possible fluid collection, seroma with potential x-ray tomorrow. Tolerating tube feeds with minimal to no residuals, currently at 30 mls per hour with goal of 45. IV steroids added to med regimen with blood sugars increasing. Remains vent dependent with FiO2 at 50/+12 of PEEP. Continues on Levophed, fentanyl, diprovan drips. Afebrile, T-max 99.5, WBC 14.1. 02/26/2020 ABGs unchanged,remains vent dependent, FiO2 50/+12 PEEP. Chest x-ray reporting improvement. Maintained on both Xifaxan & Lactulose, ammonia increasing, beginning to stool. Creatinine trending up 1.4. Hemoglobin decreased to 8.5. INR 1.7 Levophed weaned off this morning. Attempted a sedation holiday for about an hour this morning; patient did not wake up, became agitated, tachycardic, tachypneic with respiratory rate up into the 40s, diprovan/fentanyl drips resumed. Tolerating tube feeds at 40 with goal of 45/minimal to no residual. Orthopedics discussing x-ray and foot possibly tomorrow. Afebrile WBC down to 11. notes 03/01/2020 Patient remains intubated and sedated. He is scheduled for Trach and PEG soon. He remains Hypernatremic at 159 and anemiac @ 8.o today, Trial weeningand awakenings have so far failed. Ammonia level now 44. Critical care notes Reviewed today Objective - Vital Signs Vital signs: Vital Signs Temp 99.5 F 03/01/20 12:00 Pulse 96 03/01/20 13:00 Resp 18 03/01/20 13:00 BP 108/60 02/29/20 07:00 Pulse Ox 100 03/01/20 13:00 Intake & Output 02/29/20 03/01/20 03/01/20 18:59 06:59 18:59 Intake Total 2215.411 1221.589 827.066 Output Total 3525 850 1750 Balance -1309.589 371.589 -922.934 Weight 88.5 kg 88.5 kg Intake: IV 836 936 362 Dextrose 5% in Water 1, 600 900 350 000 ml @ 125 mls/hr IV . Q8H JARED Rx#:[id number] Normal Saline Pressure 36 36 12 Bag Sodium Chloride 0.9% 1, 200 000 ml @ 50 mls/hr IV . Q20H JARED Rx#:[id number] Intake, IV Titration 239.411 60.589 130.066 Amount Piperacillin-Tazobactam 3 100 .375 gm In Sodium Chloride 0.9% 100 ml @ 25 mls/hr IVPB Q8HR JARED Rx# :[id number] Propofol 1,000 mg In 139.411 60.589 130.066 Empty Bag 1 bag @ Titrate IV .Q0M JARED Rx#: [id number] Tube Feeding 540 225 135 Other 600 200 Output: Urine 1125 850 250 Stool 2400 1500 Other: Voiding Method Indwelling Catheter Indwelling Catheter Indwelling Catheter ABP, PAP, CO, CI - Last Documented Arterial Blood Pressure 132/60 - Exam GENERAL: Head of bed elevated, intubated, sedated HEENT: Conjunctivae normal. Positive icterus, jaundice, NG,OG tubes present. NECK: No JVD. No thyroid enlargement. No LNs CARDIOVASCULAR: S1, S2 regular. Systolic murmur RESPIRATION: Coarse Breath sounds diminished in the bases with scattered bilateral rhonchi and crackles ABDOMEN: Soft, distended, positive ascites, positive bowel sounds Extremities: Positive upper and lower extremity edema, no clubbing, no cyanosis. Right foot dorsal edema , significant ecchymosis -orthopedic evaluation in progress NERVOUS SYSTEM: Unable to assess, sedated and intubated. Skin: Warm and dry, no rash - Labs CBC & Chem 7: 03/01/20 06:15 03/01/20 06:15 Labs: Abnormal Lab Results - Last 24 Hours (Table) 02/29/20 03/01/20 03/01/20 Range/Units 18:05 00:26 05:19 WBC (3.8-10.6) k/uL RBC (4.30-5.90) m/uL Hgb (13.0-17.5) gm/dL Hct (39.0-53.0) % MCV (80.0-100.0) fL MCH (25.0-35.0) pg RDW (11.5-15.5) % Plt Count (150-450) k/uL Neutrophils # (1.3-7.7) k/uL Lymphocytes # (1.0-4.8) k/uL Macrocytosis ABG HCO3 27 H (21-25) mmol/L ABG Total CO2 28 H (19-24) mmol/L ABG O2 Saturation 97.4 H (94-97) % Sodium (137-145) mmol/L Potassium (3.5-5.1) mmol/L Chloride (98-107) mmol/L BUN (9-20) mg/dL Glucose (74-99) mg/dL POC Glucose (mg/dL) 230 H 184 H (75-99) mg/dL Calcium (8.4-10.2) mg/dL Ammonia (<30) umol/L 03/01/20 03/01/20 03/01/20 Range/Units 06:15 06:15 10:00 WBC 14.0 H (3.8-10.6) k/uL RBC 2.24 L (4.30-5.90) m/uL Hgb 8.0 L (13.0-17.5) gm/dL Hct 25.1 L (39.0-53.0) % MCV 112.0 H (80.0-100.0) fL MCH 35.7 H (25.0-35.0) pg RDW 23.1 H (11.5-15.5) % Plt Count 62 L (150-450) k/uL Neutrophils # 12.1 H (1.3-7.7) k/uL Lymphocytes # 0.8 L (1.0-4.8) k/uL Macrocytosis Marked A ABG HCO3 (21-25) mmol/L ABG Total CO2 (19-24) mmol/L ABG O2 Saturation (94-97) % Sodium 159 H (137-145) mmol/L Potassium 3.3 L (3.5-5.1) mmol/L Chloride 128 H (98-107) mmol/L BUN 78 H (9-20) mg/dL Glucose 138 H (74-99) mg/dL POC Glucose (mg/dL) (75-99) mg/dL Calcium 8.1 L (8.4-10.2) mg/dL Ammonia 44 H (<30) umol/L 03/01/20 Range/Units 11:55 WBC (3.8-10.6) k/uL RBC (4.30-5.90) m/uL Hgb (13.0-17.5) gm/dL Hct (39.0-53.0) % MCV (80.0-100.0) fL MCH (25.0-35.0) pg RDW (11.5-15.5) % Plt Count (150-450) k/uL Neutrophils # (1.3-7.7) k/uL Lymphocytes # (1.0-4.8) k/uL Macrocytosis ABG HCO3 (21-25) mmol/L ABG Total CO2 (19-24) mmol/L ABG O2 Saturation (94-97) % Sodium (137-145) mmol/L Potassium (3.5-5.1) mmol/L Chloride (98-107) mmol/L BUN (9-20) mg/dL Glucose (74-99) mg/dL POC Glucose (mg/dL) 217 H (75-99) mg/dL Calcium (8.4-10.2) mg/dL Ammonia (<30) umol/L Assessment and Plan (1) Acute alcoholic hepatitis Current Visit: Yes Status: Acute Code(s): K70.10 - ALCOHOLIC HEPATITIS WITHOUT ASCITES SNOMED Code(s): 3182571 (2) Alcoholic peripheral neuropathy Current Visit: Yes Status: Acute Code(s): G62.1 - ALCOHOLIC POLYNEUROPATHY SNOMED Code(s): 1568673 (3) Anemia due to blood loss, acute Current Visit: Yes Status: Acute Code(s): D62 - ACUTE POSTHEMORRHAGIC ANEMIA SNOMED Code(s): 381735406 (4) Ascites Current Visit: Yes Status: Acute Code(s): R18.8 - OTHER ASCITES SNOMED Code(s): 398636270 (5) Hepatic encephalopathy Current Visit: Yes Status: Acute Code(s): K72.90 - HEPATIC FAILURE, UNSPECIFIED WITHOUT COMA SNOMED Code(s): 84324394 (6) Liver cirrhosis Current Visit: Yes Status: Acute Code(s): K74.60 - UNSPECIFIED CIRRHOSIS OF LIVER SNOMED Code(s): 07976884 (7) Liver failure Current Visit: Yes Status: Acute Code(s): K72.90 - HEPATIC FAILURE, UNSPECIFIED WITHOUT COMA SNOMED Code(s): 26923359 (8) Sepsis with acute hypoxic respiratory failure and septic shock Current Visit: Yes Status: Acute Code(s): A41.9 - SEPSIS, UNSPECIFIED ORGANISM; R65.21 - SEVERE SEPSIS WITH SEPTIC SHOCK; J96.01 - ACUTE RESPIRATORY FAILURE WITH HYPOXIA SNOMED Code(s): 604309247 (9) Hypernatremia Current Visit: Yes Status: Acute Code(s): E87.0 - HYPEROSMOLALITY AND HYPERNATREMIA SNOMED Code(s): 714987086 Plan: Wait on upcoming PEG and trach tube placement. Repeat labs in a.m. Weight and further recommendations from critical care about possible extubation. We'll reevaluate him in the next 24 hours.
--- NOTE | 2020-03-01 16:16 | PN ---
PROGRESS NOTE DATE OF SERVICE: 03/01/2020 Patient is a 54-year-old white male with history of alcoholic cirrhosis with ascites and hepatic encephalopathy, has been admitted to the hospital about 8 days ago with altered mental status and remains on the vent. Dr. Abraham has been consulted for EGD and PEG tube placement. The patient is on the vent sedated. As per the staff, no acute events noted overnight. He has been receiving oral Xifaxan as well as lactulose for hepatic encephalopathy and ammonia level has been gradually improving. PHYSICAL EXAMINATION: He remains sedated on the vent. Vital signs show a blood pressure of 105/86, pulse rate 18, temperature 96. HEENT: Examination unremarkable, conjunctivae are pink, sclerae nonicteric, oral cavity no lesions. NECK: No JVD or lymph node enlargement. CHEST: Clear to auscultation. HEART: Regular rate and rhythm. ABDOMEN: Slightly distended. Bowel sounds are positive. EXTREMITIES: No pedal edema. NEURO: He is sedated. LABS: Done today WBC 14.5, hemoglobin 8, platelets 62,000. ALT, AST , ammonia level is down to 44. Sodium 159, potassium 3.4, chloride 128, CO2 is 27, BUN 78 and creatinine 1.22. IMPRESSION: 1. Acute respiratory failure, possible aspiration on broad-spectrum antibiotics. Remains intubated on the vent. 2. Alcoholic liver disease with acute alcoholic hepatitis with elevated bilirubin, which is gradually improving. 3. Hepatic encephalopathy. Remains on oral lactulose via the NG tube as well as Xifaxan and ammonia level is gradually improving. 4. Macrocytic anemia, which is a combination of underlying liver disease and may have a component of acute mild occult blood loss. Clinically, no evidence of active bleeding. Patient has an FMS in place that showed dark green-colored stool. 5. Elevated LFTs and jaundice secondary to alcoholic hepatitis. RECOMMENDATION: 1. Continue with symptomatic and supportive care. 2. Continue lactulose as well as oral Xifaxan. 3. Continue broad-spectrum antibiotics. 4. Manage pain management as per clerk entry level. 5. Will follow with you closely. Thank you for this consultation. MMODL / IJN: [id number] /
[2020-03-01 17:42] LABS: Glucose,Whole Blood 189 mg/dL (75-99)
[2020-03-01] MEDS: IPRATROPIUM-ALBUTEROL 3 ML NEB INHALATION PRN (23:10)
[2020-03-01 23:44] LABS: Glucose,Whole Blood 226 mg/dL (75-99)
[2020-03-02] MEDS: PROPOFOL 1,000 MG in EMPTY BAG 1 BAG IV SCH ×6 (01:07→23:16)
[2020-03-02] MEDS: DEXTROSE 5% IN WATER 1,000 ML IV SCH ×3 (03:00→20:55)
[2020-03-02] MEDS: fentaNYL (PF) 1,000 MCG in SODIUM CHLORIDE 0.9% 80 ML IV SCH ×2 (03:09→23:16)
[2020-03-02] MEDS: IPRATROPIUM-ALBUTEROL 3 ML NEB INHALATION PRN ×2 (03:19→23:30)
[2020-03-02 05:07] LABS: ABG Base Excess 1.3 mmol/L; ABG HCO3 25 mmol/L (21-25); ABG Oxygen Saturation 98.9 % (94-97); ABG PCO2 34 mmHg (35-45); ABG PH 7.47 (7.35-7.45); ABG PO2 113 mmHg (83-108); ABG TCO2 26 mmol/L (19-24); Allen Test Performed? Yes
[2020-03-02 05:08] LABS: ALT 61 U/L (4-49); AST 127 U/L (17-59); African American GFR (CKD) >90 (>60 ml/min/1.73 sqM); Albumin 2.3 g/dL (3.5-5.0); Alkaline Phosphatase 94 U/L (38-126); Anion Gap 4 mmol/L; Blood Urea Nitrogen 77 mg/dL (9-20); Calcium 8.1 mg/dL (8.4-10.2); Carbon Dioxide 24 mmol/L (22-30); Chloride 121 mmol/L (98-107); Glucose 200 mg/dL (74-99); Non-African American GFR(CKD) 78 (>60 ml/min/1.73 sqM); Potassium 3.4 mmol/L (3.5-5.1); Sodium 149 mmol/L (137-145); Total Bilirubin 6.3 mg/dL (0.2-1.3); Total Protein 6.1 g/dL (6.3-8.2)
[2020-03-02 05:22] LABS: Anisocytosis Moderate; Basophils % (A) 0 %; Eosinophils # (A) 0.1 k/uL (0-0.7); Eosinophils % (A) 0 %; HCT 25.3 % (39.0-53.0); HGB 8.1 gm/dL (13.0-17.5); Hypochromasia Moderate; Lymphocytes % (A) 6 %; MCH 36.7 pg (25.0-35.0); MCHC 32.2 g/dL (31.0-37.0); Macrocytosis Marked; Monocytes # (A) 0.5 k/uL (0-1.0); Monocytes % (A) 3 %; Neutrophils # (A) 14.5 k/uL (1.3-7.7); Neutrophils % (A) 89 %; RBC 2.22 m/uL (4.30-5.90); RDW 22.7 % (11.5-15.5); WBC 16.2 k/uL (3.8-10.6)
[2020-03-02 05:28] LABS: Platelet Count 49 k/uL (150-450)
[2020-03-02 05:48] LABS: Large Platelets Present
[2020-03-02] MEDS: POTASSIUM CHLORIDE 20 MEQ in WATER FOR INJECTION 1 100ML.BAG IVPB SCH ×2 (05:50→08:02)
[2020-03-02] MEDS: INSULIN ASPART (NovoLOG) 100 UNIT/ML VIAL SQ SCH ×4 (05:51→23:45)
[2020-03-02 05:52] LABS: Glucose,Whole Blood 205 mg/dL (75-99)
[2020-03-02] MEDS: IPRATROPIUM-ALBUTEROL 3 ML NEB INHALATION SCH ×4 (07:40→19:58)
[2020-03-02] MEDS: methylPREDNISolone SOD SUCCI 40 MG/ML 1 ML VIAL IV SCH ×3 (08:02→23:45)
[2020-03-02] MEDS: CHLORHEXIDINE GLUCONATE 15 ML CUP MUCOUS MEM SCH ×2 (08:02→21:42)
[2020-03-02] MEDS: PANTOPRAZOLE 40 MG/10 ML VIAL IVP SCH ×2 (08:03→21:42)
[2020-03-02] MEDS: RIFAXIMIN 550 MG TABLET PO SCH ×2 (08:03→21:43)
[2020-03-02] MEDS: LACTULOSE 20 GM/30 ML CUP PO SCH ×3 (08:11→20:57)
--- NOTE | 2020-03-02 08:22 | P.PN ---
Subjective Progress Note Date: 03/02/20 Principal diagnosis: Acute liver failure, acute hypoxic respiratory failure This is a 54-year-old white male, history of alcohol abuse, patient was brought into the ER with change in mental status according to EMS. Patient could not give any history, he was a very poor historian upon arrival to the ER. Patient is supposedly a daily drinker, however from my review of the chart, I saw this patient back on 11/11/19, patient presented back then with multiple posterior lateral rib fractures on the right. Apparently he fell in his bathroom, and landed on the side of the top sustaining multiple rib fractures. Patient sustained rib fractures of 910 and 11 ribs. Patient is also known to have history of severe emphysema/COPD. He is legally blind. He has history of pericarditis, anxiety, and history of degenerative joint disease. Patient was discharged home on 11/12/19. Drug screen in the ER was positive for tricyclic antidepressants and positive for benzodiazepines. Rest of the drug screen was basically negative. ABG in the ER showed a pO2 of 63 pCO2 of 29 pH of 7.49. Patient was also noted to have elevated INR of 3.7. Low hemoglobin of 7.0 although his baseline hemoglobin from 2 months ago was 15.1. Ammonia level was 91. Total bilirubin was 14.9, and his liver enzymes were a bit elevated. Normal amylase and lipase were noted. Gallbladder ultrasound showed abdominal ascites. Chest x-ray showed bilateral diffuse infiltrates. Patient was presumed septic upon presentation, received fluid boluses of 2500 ML's. Patient was found to have hepatic encephalopathy liver failure, bilateral pneumonia, GI hemorrhage and sepsis. Early this morning, patient was intubated, placed on mechanical ventilation, and he was aware of the patient since admission. Presently the patient is on assist control rate of 28 tidal volume is 500 FiO2 is 100% PEEP of 5. ABG showed a pO2 of 170 pCO2 of 31 pH of 7.46. Hence I cut down the FiO2 to 50%, increased the PEEP to 8, cut down the tidal volume to 450, and decrease the respiratory rate to 26. Patient is on Sandostatin for his GI bleeding, and he is yet to be seen by gastroenterology on consultation is also on Protonix. He is on lactulose for his elevated ammonia level. And he is empirically on Zosyn for presumptive aspiration pneumonia. Echocardiogram showed evidence of good LV function. And mild valvular heart disease. BNP level was borderline elevated at 910 Patient was reevaluated today on 02/24/20, remains on mechanical ventilation. He is presently on assist control rate of 26 tidal volume is 450 FiO2 of 60% and PEEP of 8. However I increased his PEEP to 12 and cut down his FiO2 to 50%. At night the patient developed worsening agitation, and Stacking his breaths, was not synchronous with mechanical ventilation, hence had to place the patient on Nimbex. Today I plan to discontinue Nimbex and place him on fentanyl 25 g per hour. Patient will be started on tube feeding, and I cut down his IV fluid to 50 MLS per hour. Remains on propofol at 60 mcg/kg/m, Nimbex which will be disco ntinued, but creatinine which was discontinued this morning, and norepinephrine at 0.06 mcg/kg/m. Enteral feeding to be started today by public safety telecommunicator. Patient remains on antibiotics, remains on lactulose for his elevated ammonia level which is 80 today. And he remains on Protonix. Chest x-ray showed more consolidation noted bilaterally in both lungs more so in the left lung. Bilateraldisease is noted consistent with aspiration pneumonia. Sputum cultures and blood cultures so far remain on diagnostic. ABG today showed a pO2 of 67 pCO2 of 39 pH of 7.33. WBC count is 14.7 hemoglobin is 8.6 platelets are 66,000 and INR is 2.1. Electrolytes are basically normal renal profile showed beer of 25 creatinine 0.94. Patient was reevaluated today on 02/25/20, remains in the intensive care unit, remains on mechanical ventilation. His ventilator settings are assist control rate of 26, tidal volume is 450 FiO2 is 50% and PEEP is at 12. ABG showed a pO2 of 65 pCO2 of 37 pH of 7.36, hence no change was made in the ventilator settings. Patient remains on norepinephrine at 0.09 mcg/kg/m, propofol at 45 mcg/kg/m, fentanyl at 0.5 mcg/kg/h. Remains on enteral feeding at 30 MLS per hour goal is 45. Remains on Zosyn for empiric coverage of aspiration pneumonia. Remains on lactulose and the dose was increased to 45 ML 4 times a day, and added Xifaxan at 550 mg twice a day. His lactulose does not seem to be inducing enough diarrhea did get his ammonia level down. Continues to have significantly elevated ammonia level in spite of lactulose for the last 2 days. Patient continues to have ascites. And no plans for paracentesis as recommended by gastroenterology at this point. Chest x-ray showed very minimal improvement if any in his bilateral infiltrates. The bilateral infiltrates are suggestive of aspiration pneumonia. Obviously the patient is known to have history of alcoholism, and he presented with alcoholic liver hepatitis, and hepatic encephalopathy. Labs today were all reviewed WBC is 14.1 hemoglobin is 9.4 platelets are 75,000 INR is 1.7. Electrolytes are unremarkable except for low potassium of 3.4 BUN of 27 creatinine 1.32. Liver enzymes are borderline elevat ed. Total bilirubin is improving down to 8.9 today. Albumin is 2.3 Patient was reevaluated today on 02/26/20, remains in the ICU, intubated, mechanically ventilated. Patient is on assist control rate of 26 tidal volume 450 FiO2 50% and PEEP is 12. Chest x-ray is showing definite improvement, zeng rosio his ABG is basically about the same with a pO2 of 68 pCO2 of 38 and pH of 7.38. His ammonia level is on the rise in spite of the fact that the patient is on relatively high dose of lactulose and he is also on Xifaxan. Patient remains on propofol at 40 mcg/kg/m, fentanyl at 0.5 mcg/kg/h, he is on very small dose of norepinephrine at 0.01 mcg/kg/m, IV fluid is at KVO, and he is also on Zosyn for presumptive aspiration pneumonia. Remains on diuretics in the form of Lasix, Aldactone. His Lasix was increased to 40 mg 3 times a day, and he is on Aldactone via nasogastric tube. Patient was taken off sedation today, however he became extremely agitated, tachypneic, tachycardic, hence we had to place him back on sedation and continued assist control mode of mechanical ventilation. Chest x-ray again showed improvement. WBC count today is 11 hemoglobin is 8.5 his INR is 1.7 basic metabolic profile is improving, creatinine however is up to 1.40, and the patient obviously developed acute kidney injury. This could very well be related to his sepsis, and related to his hypotension requiring norepinephrine. Cultures including blood cultures and sputum cultures have been negative. Patient was reevaluated today in the ICU, remains intubated and mechanically ventilated. His ventilator settings are assist control rate of 26 tidal volume is 450 FiO2 is 50% and PEEP is at 12 chest x-ray showed dramatic improvement. His ABG is significantly improved hence I recommended cutting down the PEEP to 8. His ammonia level is significantly improved today, it is down to 69. Sodium seems to be creeping up a little bit, and I recommended free water flushes via orogastric tube. Patient is on propofol at 50 mcg/kg/m, his tube feeding is presently on hold because of increased residual. Patient was given a sedation holiday, however when he went off propofol, the patient became extremely agitated, restless, biting on the endotracheal tube, tachycardic, tachypneic, and was extremely agitated. Hence I recommended placing him back on propofol, and not quite ready for weaning. Labs were all reviewed today. And addressed accordingly including his elevated sodium and elevated BUN of 49 creatinine 1.46. Chest x-ray showed significant improvement in his bilateral infiltrates/aspiration pneumonia. Patient was reevaluated today on 02/28/20, remains in the ICU, intubated and mechanically ventilated. His ventilator settings are assist control rate of 26 FiO2 50% tidal volume of 450 PEEP is at 8 and today I cut down his FiO2 to 45% and kept him on a PEEP of 8. ABG this morning showed a pO2 of 102 pCO2 of 35 pH of 7.45. Patient has significantly elevated sodium today of 150 potassium is low at 2.8 ammonia level remains high at 73. Patient is not requiring any pressors, he is on propofol at 34 mcg/kg/m. Patient is on enteral feeding. I do plan to wean the patient off propofol sometime today, and assess mental status again. This was attempted yesterday, but the patient didn't do well, I have also recommended free water flushes to correct his hyper natremia. The patient is seen today 02/29/2020 in follow-up in the intensive care unit. He remains intubated on mechanical vent. Current settings are assist control at a rate of 26, FiO2 45% tidal volume 450 and a PEEP of 8. Morning blood gases reveal a P O2 of 93, pCO2 of 35 and a pH of 7.47. Chest x-ray reveals stable bilateral atelectasis/infiltrate. He is sedated on propofol at 50 mcg/kg/m. Antibiotics in the form of Zosyn. He remains on IV diuretics. He is tolerating his tube feedings. He remains hypernatremic despite free water. IVs changed to D5W at 75 ML's per hour. Sodium 156. Potassium 2.8. Creatinine 1.32. Glucose 157. White count 10.8. Hemoglobin 8.4. Platelet count 58,000. On 03/01/2020 patient seen in follow-up in the intensive care unit, he remains sedated, intubated on mechanical ventilator, current vent settings are assist control mode of ventilation with a rate of 12, tidal volume is 450, FiO2 45% and PEEP of 5, this morning blood gases show pO2 of 93, pCO2 38, pH of 7.45. Current IV fluids include D5 W5 to 75 ML per hour, and Diprivan at 45 mics per kilo per minute, no vasoactive drips, tube feedings of vital high protein at a rate of 45 with a goal of 45. Today's chest x-ray has been reviewed showing stable appearance of the bibasilar opacities. T-max in the last 24 hours was 99.7F, afebrile this morning, 1 sputum cultures have shown no growth, today's blood work has been reviewed, limits according to 14.0, hemoglobin of 8.0, platelet count is 62, sodium is 159 is on D5W at 75 ML per hour, in addition to free water flushes with 200 mL every 4 hours, patient continues on lactulose and rifaximin, and is having lactulose induced diarrhea and he had 2.4 L in liquid stool output in the last 24 hours. Patient apparently has failed spontaneous breathing trials for last 4 days. We will proceed with a spontaneous awakening and spontaneous breathing trials again today, we will speak to the family about placement of tracheostomy and PEG tube insertion. On 03/02/2020 patient is seen in follow-up in intensive care unit, he remains sedated, intubated on mechanical ventilator, current vent settings are assist- control with a rate of 12, tidal vital 450, FiO2 is 45%, and PEEP of 8, this morning blood gases show pO2 of 113, pCO2 is 34, and pH of 7.47, PEEP has been dropped to 5. IV fluids include D5 W at 125 ML per hour, Diprivan is a 40 mics per kilo per minute, no vasoactive drips, tube feedings are on hold patient was on vital high protein at 45 with a goal of 45 and 400 ML every 4 hours water flushes. Patient was given a sedation holiday yesterday, he never really fully awakened, he was placed on pressure-support of 8, he tolerated it for 3 hours, however there he became predicted, and was placed back on assist control mode of ventilation, yesterday we spoke to the patient's who was a continue with full code CODE STATUS and would like to proceed with tracheostomy and PEG tube placement. Today's chest x-ray has been reviewed and is relatively stable, accounting for technical difficulties, bibasilar opacities and atelectases and pleural effusions. We discontinued patient's Lasix and Aldactone yesterday in view of his hypernatremia, patient continues to have large liquid stool output, 4.7 L in the last 24 hours, continues on lactulose and rifaximin. Yesterday's ammonia level was 44, today it is 47. Today's blood work has been reviewed Objective - Vital Signs Vital signs: Vital Signs Temp 99.1 F 03/02/20 04:00 Pulse 92 03/02/20 07:52 Resp 21 03/02/20 07:00 BP 108/60 02/29/20 07:00 Pulse Ox 100 03/02/20 07:00 Intake & Output 03/01/20 03/02/20 03/02/20 18:59 06:59 18:59 Intake Total 2346.000 3485.298 128 Output Total 3750 2905 75 Balance -1404.000 580.298 53 Weight 88.5 kg 91.7 kg Intake: IV 1386 1536 128 Dextrose 5% in Water 1, 1350 1500 125 000 ml @ 125 mls/hr IV . Q8H JARED Rx#:[id number] Normal Saline Pressure 36 36 3 Bag Intake, IV Titration 200.000 209.298 Amount Propofol 1,000 mg In 200.000 209.298 Empty Bag 1 bag @ Titrate IV .Q0M JARED Rx#: [id number] Tube Feeding 360 540 Other 400 1200 Output: Urine 1050 905 75 Stool 2700 2000 Other: Voiding Method Indwelling Catheter Indwelling Catheter ABP, PAP, CO, CI - Last Documented Arterial Blood Pressure 126/51 - Exam GENERAL EXAM: Sedated, 54-year-old white male, on mechanical ventilator, with settings of assist control rate of 12, tidal volume is 450, FiO2 45% and PEEP of 8 comfortable in no apparent distress. HEAD: Normocephalic/atraumatic. EYES: Normal reaction of pupils, equal size. Conjunctiva pink, sclera white. NOSE: Clear with pink turbinates. THROAT: No erythema or exudates. NECK: No masses, no JVD, no thyroid enlargement, no adenopathy. CHEST: No chest wall deformity. Symmetrical expansion. LUNGS: Equal air entry with no crackles, wheeze, rhonchi or dullness. CVS: Regular rate and rhythm, normal S1 and S2, no gallops, no murmurs, no rubs ABDOMEN: Soft, nontender. No hepatosplenomegaly, normal bowel sounds, no guarding or rigidity. EXTREMITIES: No clubbing, no edema, no cyanosis, 2+ pulses and upper and lower extremities. MUSCULOSKELETAL: Muscle strength and tone normal. SPINE: No scoliosis or deformity SKIN: No rashes CENTRAL NERVOUS SYSTEM: Sedated and intubated. No focal deficits, tone is normal in all 4 extremities. - Labs CBC & Chem 7: 03/02/20 04:30 03/02/20 04:30 Labs: Abnormal Lab Results - Last 24 Hours (Table) 03/01/20 03/01/20 03/01/20 Range/Units 06:15 10:00 11:55 WBC (3.8-10.6) k/uL RBC (4.30-5.90) m/uL Hgb (13.0-17.5) gm/dL Hct (39.0-53.0) % MCV (80.0-100.0) fL MCH (25.0-35.0) pg RDW (11.5-15.5) % Plt Count (150-450) k/uL Neutrophils # (1.3-7.7) k/uL Macrocytosis ABG pH (7.35-7.45) ABG pCO2 (35-45) mmHg ABG pO2 (83-108) mmHg ABG Total CO2 (19-24) mmol/L ABG O2 Saturation (94-97) % Sodium (137-145) mmol/L Potassium (3.5-5.1) mmol/L Chloride (98-107) mmol/L BUN (9-20) mg/dL Glucose (74-99) mg/dL POC Glucose (mg/dL) 217 H (75-99) mg/dL Osmolality 365 H* (280-301) mosm/kg Calcium (8.4-10.2) mg/dL Total Bilirubin (0.2-1.3) mg/dL AST (17-59) U/L ALT (4-49) U/L Ammonia 44 H (<30) umol/L Total Protein (6.3-8.2) g/dL Albumin (3.5-5.0) g/dL 03/01/20 03/01/20 03/02/20 Range/Units 17:40 23:42 04:30 WBC (3.8-10.6) k/uL RBC (4.30-5.90) m/uL Hgb (13.0-17.5) gm/dL Hct (39.0-53.0) % MCV (80.0-100.0) fL MCH (25.0-35.0) pg RDW (11.5-15.5) % Plt Count (150-450) k/uL Neutrophils # (1.3-7.7) k/uL Macrocytosis ABG pH (7.35-7.45) ABG pCO2 (35-45) mmHg ABG pO2 (83-108) mmHg ABG Total CO2 (19-24) mmol/L ABG O2 Saturation (94-97) % Sodium 149 H (137-145) mmol/L Potassium 3.4 L (3.5-5.1) mmol/L Chloride 121 H (98-107) mmol/L BUN 77 H (9-20) mg/dL Glucose 200 H (74-99) mg/dL POC Glucose (mg/dL) 189 H 226 H (75-99) mg/dL Osmolality (280-301) mosm/kg Calcium 8.1 L (8.4-10.2) mg/dL Total Bilirubin 6.3 H (0.2-1.3) mg/dL AST 127 H (17-59) U/L ALT 61 H (4-49) U/L Ammonia (<30) umol/L Total Protein 6.1 L (6.3-8.2) g/dL Albumin 2.3 L (3.5-5.0) g/dL 03/02/20 03/02/20 03/02/20 Range/Units 04:30 04:30 05:03 WBC 16.2 H (3.8-10.6) k/uL RBC 2.22 L (4.30-5.90) m/uL Hgb 8.1 L (13.0-17.5) gm/dL Hct 25.3 L (39.0-53.0) % MCV 114.0 H (80.0-100.0) fL MCH 36.7 H (25.0-35.0) pg RDW 22.7 H (11.5-15.5) % Plt Count 49 L (150-450) k/uL Neutrophils # 14.5 H (1.3-7.7) k/uL Macrocytosis Marked A ABG pH 7.47 H (7.35-7.45) ABG pCO2 34 L (35-45) mmHg ABG pO2 113 H (83-108) mmHg ABG Total CO2 26 H (19-24) mmol/L ABG O2 Saturation 98.9 H (94-97) % Sodium (137-145) mmol/L Potassium (3.5-5.1) mmol/L Chloride (98-107) mmol/L BUN (9-20) mg/dL Glucose (74-99) mg/dL POC Glucose (mg/dL) (75-99) mg/dL Osmolality (280-301) mosm/kg Calcium (8.4-10.2) mg/dL Total Bilirubin (0.2-1.3) mg/dL AST (17-59) U/L ALT (4-49) U/L Ammonia 47 H (<30) umol/L Total Protein (6.3-8.2) g/dL Albumin (3.5-5.0) g/dL 03/02/20 Range/Units 05:44 WBC (3.8-10.6) k/uL RBC (4.30-5.90) m/uL Hgb (13.0-17.5) gm/dL Hct (39.0-53.0) % MCV (80.0-100.0) fL MCH (25.0-35.0) pg RDW (11.5-15.5) % Plt Count (150-450) k/uL Neutrophils # (1.3-7.7) k/uL Macrocytosis ABG pH (7.35-7.45) ABG pCO2 (35-45) mmHg ABG pO2 (83-108) mmHg ABG Total CO2 (19-24) mmol/L ABG O2 Saturation (94-97) % Sodium (137-145) mmol/L Potassium (3.5-5.1) mmol/L Chloride (98-107) mmol/L BUN (9-20) mg/dL Glucose (74-99) mg/dL POC Glucose (mg/dL) 205 H (75-99) mg/dL Osmolality (280-301) mosm/kg Calcium (8.4-10.2) mg/dL Total Bilirubin (0.2-1.3) mg/dL AST (17-59) U/L ALT (4-49) U/L Ammonia (<30) umol/L Total Protein (6.3-8.2) g/dL Albumin (3.5-5.0) g/dL Assessment and Plan Plan: Assessment: Acute hypoxic respiratory failure, suspect aspiration pneumonia. Chest x-ray has shown improvement over the last 2 days, and this is also reflected in the improvement noted in the ABG. Acute sepsis, possible septic shock, patient required pressors and remains on norepinephrine today. likely source is aspiration pneumonia, although abdominal source is not entirely ruled out. Blood cultures and sputum cultures remain negative. Alcohol liver disease with ascites. Jaundice, and elevated liver enzymes. Blood loss anemia, most likely the patient has acute or subacute GI bleeding, GI is following. Acute hepatic encephalopathy with significantly elevated ammonia level. Slightly increased today compared to yesterday, it is 73. Recent history of fall about 2 months ago, and multiple right-sided rib fractures. History of alcoholic neuropathy. History of pericarditis Chronic back pain History of restless leg syndrome. Acute kidney injury secondary to sepsis and septic shock. Strongly doubt hepatorenal syndrome. Improved Hypernatremia, related to free water deficit. Patient continues on D5W and free water flushes, and today on 03/02/2020 serum sodium is down to 149 from 159 Plan: Continue with the same vent settings we'll drop the PEEP down to 5, today's chest x-ray has been reviewed is stable in appearance with possibility of a basilar atelectasis, and pleural effusions, O2 sat is 45%, no fever or chills, hemodynamically stable, tube feedings on hold, yesterday patient's was updated on patient's condition, she wishes to continue with the full code status and to proceed with a tracheostomy and PEG tube placement. Will continue to closely follow, continue holding the diuretics. Daily interruption of sedation in the morning, repeat chest x-ray. Microbiology data remains negative. I performed a history & physical examination of the patient and discussed their management with my nurse practitioner, Mary Kay Nieto. I reviewed the nurse practitioner's note and agree with the documented findings and plan of care. Lung sounds are positive for diminished breath sounds. The findings and the impression was discussed with the patient. I attest to the documentation by the nurse practitioner. Time with Patient: Greater than 30
[2020-03-02 11:25] LABS: Glucose,Whole Blood 183 mg/dL (75-99)
[2020-03-02] MEDS ORDERED: SODIUM CHLORIDE 0.9% 50 ML with ceFAZolin 2,000 MG IV ONE ×2 (12:09)
[2020-03-02] MEDS ORDERED: IV FLUID CONTINUATION 500 ML IV ONE (12:09)
--- NOTE | 2020-03-02 12:30 | P.OP ---
Date of Procedure: 03/02/20 Preoperative Diagnosis: Respiratory failure Postoperative Diagnosis: Respiratory failure Procedure(s) Performed: Tracheostomy Anesthesia: LASHANDA Surgeon: Dillan Abraham Estimated Blood Loss (ml): 10 Pathology: none sent Condition: stable Disposition: PACU Description of Procedure: The patient's placed on the operative table in the supine position. He received general anesthesia. His neck was prepped and draped usual sterile fashion. A standard [place] incision made approximately 2 cm above the sternal notch. Using the cautery the subcu tissue and platysma was divided. The strap muscle divided midline. We lateral tract with wound. The trachea was exposed. The thyroid was divided midline using left cautery. Following this a material tube was placed into the right mainstem bronchus and insufflated. The tracheotomy was then performed and the tubing the second and third tracheal rings. The NG tube brought back under direct vision and then #8 Shiley fenestrated tracheostomy was placed into the trachea under direct vision. End tidal CO2 was confirmed. Patient has a ventilator and good tidal lysed. The skin was closed 3-0 nylon. Patient tolerated procedure well the tracheostomy ties were placed he was sent to the ICU in stable condition.
[2020-03-02 12:39] LABS: Glucose,Whole Blood 166 mg/dL (75-99)
--- NOTE | 2020-03-02 13:10 | P.PN ---
Subjective This is a 54-year-old gentleman, history of polysubstance abuse including alcohol abuse , falls with recent rib fractures, legally blind, osteoarthritis and multiple other medical issues presented to the ER with changes in mental status 2 days. Drug screen positive for tricyclics and benzos, serum alcohol less than 10. UA reported dark brown cloudy urine with occasional bacteria, hyaline casts, 2 WBCs, trace leukocytes, 4+ bilirubin, negative for nitrates. Ammonia level 91, T bili 14.9, currently 15.8 , elevated LFTs .Gallbladder ultrasound reporting abdominal ascites, abdominal x-ray nonacute, right foot x- ray reported no fracture, soft tissue swelling, EKG reported sinus tachycardia, troponin normal, BNP 910, echo reported normal LV function, EF 60-65% ,lactic acid 2.1 now down to 1.7, BUN 25, creatinine 0.8 chest x-ray reporting moderate pulmonary interstitial and airspace edema significantly worse than yesterday, pulmonary edema. ABGs noted. INR on admission 3.7, down to 2.2 Sepsis protocol, Received IV fluid resuscitation, IV antibiotics, cultures drawn. Developed respiratory failure, requiring intubation during the night. Currently on Sandostatin drip. 3 maroon stools during the night. Received 4 units of FFP and 2 units of packed RBCs to date. Hemoglobin currently 8.5. And had required pressor support with Levophed off since . Maintained on IV fluid resuscitation. Telemetry sinus rhythm. Potassium 3.2, magnesium 1.7. 02/24/2020 chest x-ray reporting persistent bilateral scattered airspace inf iltrates, pleural effusion unchanged. Ventilator dependent, on FiO2 of 50 with PEEP increased to 12. Continues on lactulose with ammonia down to 80. T bili decreased to 11.3, LFTs improving. No further maroon stools. Small black stool this morning. Hemoglobin 8.6. Telemetry sinus rhythm to sinus tach. Sandostatin drip discontinued this morning. Last night patient asynchronous with vent, stacking breaths, Nimbex drip initiated. This morning Nimbex discontinued, changed to fentanyl drip. Requiring pressor support, Levophed resumed. Received vitamin K yesterday, INR 2.1. Marginal urine output, IV fluids decreased, and Lasix IV push added to med regime. Tube feedings ordered. Afebrile, WBC 14.7. Sputum culture pending, preliminary blood cultures negative at 48 hours. ABGs noted. 02/25/2020 yesterday Lasix and Aldactone initiated, creatinine mildly worsened up to 1.32. Ammonia increased up to 89, lactulose increased. No further maroon stools, hemoglobin increased to 9.4, platelets increased to 75. T bili trending down, 8.9, LFTs improving. Potassium 3.4. Chest x-ray reporting improving left lower lobe aeration. Right foot evaluated by orthopedic surgery, possible fluid collection, seroma with potential x-ray tomorrow. Tolerating tube feeds with minimal to no residuals, currently at 30 mls per hour with goal of 45. IV steroids added to med regimen with blood sugars increasing. Remains vent dependent with FiO2 at 50/+12 of PEEP. Continues on Levophed, fentanyl, diprovan drips. Afebrile, T-max 99.5, WBC 14.1. 02/26/2020 ABGs unchanged,remains vent dependent, FiO2 50/+12 PEEP. Chest x-ray reporting improvement. Maintained on both Xifaxan & Lactulose, ammonia increasing, beginning to stool. Creatinine trending up 1.4. Hemoglobin decreased to 8.5. INR 1.7 Levophed weaned off this morning. Attempted a sedation holiday for about an hour this morning; patient did not wake up, became agitated, tachycardic, tachypneic with respiratory rate up into the 40s, diprovan/fentanyl drips resumed. Tolerating tube feeds at 40 with goal of 45/minimal to no residual. Orthopedics discussing x-ray and foot possibly tomorrow. Afebrile WBC down to 11. notes 03/01/2020 Patient remains intubated and sedated. He is scheduled for Trach and PEG soon. He remains Hypernatremic at 159 and anemiac @ 8.o today, Trial weeningand awakenings have so far failed. Ammonia level now 44. Critical care notes Reviewed today 03/02/2020: patient is currently in surgery for PEG and Trach. He remains a full code., he remains sedated, intubated on mechanical ventilator, current vent settings thi AM are assist-control with a rate of 12, tidal vital 450, FiO2 is 45%, and PEEP of 8, this morning blood gases show pO2 of 113, pCO2 is 34, and pH of 7.47, PEEP has been dropped to 5. IV fluids include D5 W at 125 ML per hour, Diprivan is a 40 mics per kilo per minute, no vasoactive drips, tube feedings are on hold patient was on vital high protein at 45 with a goal of 45 and 400 ML every 4 hours water flushes. NA is now down to 149. serum OSM was elevated consistatn with free water deficit. Objective - Vital Signs Vital signs: Vital Signs Temp 99.1 F 03/02/20 08:00 Pulse 80 03/02/20 11:00 Resp 14 03/02/20 11:00 BP 108/60 02/29/20 07:00 Pulse Ox 100 03/02/20 11:00 Intake & Output 03/01/20 03/02/20 03/02/20 18:59 06:59 18:59 Intake Total 2346.000 3485.298 1279.955 Output Total 3750 2905 310 Balance -1404.000 580.298 969.955 Weight 88.5 kg 91.7 kg Intake: IV 1386 1536 1068 Dextrose 5% in Water 1, 1350 1500 750 000 ml @ 125 mls/hr IV . Q8H JARED Rx#:[id number] Normal Saline Pressure 36 36 18 Bag Intake, IV Titration 200.000 209.298 211.955 Amount Potassium Chloride 20 meq 100 In Water For Injection 1 100ml.bag @ 50 mls/hr IVPB Q2H JARED Rx#: [id number] Propofol 1,000 mg In 200.000 209.298 111.955 Empty Bag 1 bag @ Titrate IV .Q0M JARED Rx#: [id number] Tube Feeding 360 540 Other 400 1200 Output: Urine 1050 905 300 Stool 2700 2000 Estimated Blood Loss 10 Other: Voiding Method Indwelling Catheter Indwelling Catheter Indwelling Catheter ABP, PAP, CO, CI - Last Documented Arterial Blood Pressure 105/46 - Exam Patient is no availble to be seen- he is in the OR - Labs CBC & Chem 7: 03/02/20 04:30 03/02/20 11:15 Labs: Abnormal Lab Results - Last 24 Hours (Table) 03/01/20 03/01/20 03/01/20 Range/Units 06:15 17:40 23:42 WBC (3.8-10.6) k/uL RBC (4.30-5.90) m/uL Hgb (13.0-17.5) gm/dL Hct (39.0-53.0) % MCV (80.0-100.0) fL MCH (25.0-35.0) pg RDW (11.5-15.5) % Plt Count (150-450) k/uL Neutrophils # (1.3-7.7) k/uL Macrocytosis ABG pH (7.35-7.45) ABG pCO2 (35-45) mmHg ABG pO2 (83-108) mmHg ABG Total CO2 (19-24) mmol/L ABG O2 Saturation (94-97) % Sodium (137-145) mmol/L Potassium (3.5-5.1) mmol/L Chloride (98-107) mmol/L BUN (9-20) mg/dL Glucose (74-99) mg/dL POC Glucose (mg/dL) 189 H 226 H (75-99) mg/dL Osmolality 365 H* (280-301) mosm/kg Calcium (8.4-10.2) mg/dL Total Bilirubin (0.2-1.3) mg/dL AST (17-59) U/L ALT (4-49) U/L Ammonia (<30) umol/L Total Protein (6.3-8.2) g/dL Albumin (3.5-5.0) g/dL 03/02/20 03/02/20 03/02/20 Range/Units 04:30 04:30 04:30 WBC 16.2 H (3.8-10.6) k/uL RBC 2.22 L (4.30-5.90) m/uL Hgb 8.1 L (13.0-17.5) gm/dL Hct 25.3 L (39.0-53.0) % MCV 114.0 H (80.0-100.0) fL MCH 36.7 H (25.0-35.0) pg RDW 22.7 H (11.5-15.5) % Plt Count 49 L (150-450) k/uL Neutrophils # 14.5 H (1.3-7.7) k/uL Macrocytosis Marked A ABG pH (7.35-7.45) ABG pCO2 (35-45) mmHg ABG pO2 (83-108) mmHg ABG Total CO2 (19-24) mmol/L ABG O2 Saturation (94-97) % Sodium 149 H (137-145) mmol/L Potassium 3.4 L (3.5-5.1) mmol/L Chloride 121 H (98-107) mmol/L BUN 77 H (9-20) mg/dL Glucose 200 H (74-99) mg/dL POC Glucose (mg/dL) (75-99) mg/dL Osmolality (280-301) mosm/kg Calcium 8.1 L (8.4-10.2) mg/dL Total Bilirubin 6.3 H (0.2-1.3) mg/dL AST 127 H (17-59) U/L ALT 61 H (4-49) U/L Ammonia 47 H (<30) umol/L Total Protein 6.1 L (6.3-8.2) g/dL Albumin 2.3 L (3.5-5.0) g/dL 03/02/20 03/02/20 03/02/20 Range/Units 05:03 05:44 11:22 WBC (3.8-10.6) k/uL RBC (4.30-5.90) m/uL Hgb (13.0-17.5) gm/dL Hct (39.0-53.0) % MCV (80.0-100.0) fL MCH (25.0-35.0) pg RDW (11.5-15.5) % Plt Count (150-450) k/uL Neutrophils # (1.3-7.7) k/uL Macrocytosis ABG pH 7.47 H (7.35-7.45) ABG pCO2 34 L (35-45) mmHg ABG pO2 113 H (83-108) mmHg ABG Total CO2 26 H (19-24) mmol/L ABG O2 Saturation 98.9 H (94-97) % Sodium (137-145) mmol/L Potassium (3.5-5.1) mmol/L Chloride (98-107) mmol/L BUN (9-20) mg/dL Glucose (74-99) mg/dL POC Glucose (mg/dL) 205 H 183 H (75-99) mg/dL Osmolality (280-301) mosm/kg Calcium (8.4-10.2) mg/dL Total Bilirubin (0.2-1.3) mg/dL AST (17-59) U/L ALT (4-49) U/L Ammonia (<30) umol/L Total Protein (6.3-8.2) g/dL Albumin (3.5-5.0) g/dL 03/02/20 Range/Units 12:37 WBC (3.8-10.6) k/uL RBC (4.30-5.90) m/uL Hgb (13.0-17.5) gm/dL Hct (39.0-53.0) % MCV (80.0-100.0) fL MCH (25.0-35.0) pg RDW (11.5-15.5) % Plt Count (150-450) k/uL Neutrophils # (1.3-7.7) k/uL Macrocytosis ABG pH (7.35-7.45) ABG pCO2 (35-45) mmHg ABG pO2 (83-108) mmHg ABG Total CO2 (19-24) mmol/L ABG O2 Saturation (94-97) % Sodium (137-145) mmol/L Potassium (3.5-5.1) mmol/L Chloride (98-107) mmol/L BUN (9-20) mg/dL Glucose (74-99) mg/dL POC Glucose (mg/dL) 166 H (75-99) mg/dL Osmolality (280-301) mosm/kg Calcium (8.4-10.2) mg/dL Total Bilirubin (0.2-1.3) mg/dL AST (17-59) U/L ALT (4-49) U/L Ammonia (<30) umol/L Total Protein (6.3-8.2) g/dL Albumin (3.5-5.0) g/dL Assessment and Plan (1) Acute alcoholic hepatitis Current Visit: Yes Status: Acute Code(s): K70.10 - ALCOHOLIC HEPATITIS WITHOUT ASCITES SNOMED Code(s): 5981386 (2) Alcoholic peripheral neuropathy Current Visit: Yes Status: Acute Code(s): G62.1 - ALCOHOLIC POLYNEUROPATHY SNOMED Code(s): 9260242 (3) Anemia due to blood loss, acute Current Visit: Yes Status: Acute Code(s): D62 - ACUTE POSTHEMORRHAGIC ANEMIA SNOMED Code(s): 504353567 (4) Ascites Current Visit: Yes Status: Acute Code(s): R18.8 - OTHER ASCITES SNOMED Code(s): 176225282 (5) Hepatic encephalopathy Current Visit: Yes Status: Acute Code(s): K72.90 - HEPATIC FAILURE, UNSPECIFIED WITHOUT COMA SNOMED Code(s): 13538611 (6) Liver cirrhosis Current Visit: Yes Status: Acute Code(s): K74.60 - UNSPECIFIED CIRRHOSIS OF LIVER SNOMED Code(s): 94380919 (7) Liver failure Current Visit: Yes Status: Acute Code(s): K72.90 - HEPATIC FAILURE, UNSPECIFIED WITHOUT COMA SNOMED Code(s): 94493760 (8) Sepsis with acute hypoxic respiratory failure and septic shock Current Visit: Yes Status: Acute Code(s): A41.9 - SEPSIS, UNSPECIFIED ORGANISM; R65.21 - SEVERE SEPSIS WITH SEPTIC SHOCK; J96.01 - ACUTE RESPIRATORY FAILURE WITH HYPOXIA SNOMED Code(s): 407619247 (9) Hypernatremia Current Visit: Yes Status: Acute Code(s): E87.0 - HYPEROSMOLALITY AND HYPERNATREMIA SNOMED Code(s): 982583374 Plan: PEG and trach tube placement going on now Repeat labs in a.m. further recommendations from critical care about possible extubation soon. We'll reevaluate him in the next 24 hours.
--- NOTE | 2020-03-02 13:18 | XR ---
EXAMINATION TYPE: XR chest 1V portable DATE OF EXAM: 03/02/2020 COMPARISON: 03/01/2020 INDICATION: ICU management, difficulty breathing TECHNIQUE: Single frontal view of the chest is obtained. FINDINGS: The heart size is normal. The pulmonary vasculature is normal. There is some increased infiltrate along the left base. This is improving. Correlate for atelectasis or resolving pneumonia. Endotracheal tube tip is above the rossi. Nasogastric tube tip is in the left upper quadrant of the abdomen. IMPRESSION: 1. Improving left lower lobe infiltrate. Correlate for atelectasis and resolving pneumonia. 2. Lines and catheters discussed above
--- NOTE | 2020-03-02 15:42 | XR ---
EXAMINATION TYPE: XR chest 1V DATE OF EXAM: 03/02/2020 COMPARISON: 03/02/2020 INDICATION: Nasogastric tube placement TECHNIQUE: Single frontal view of the chest is obtained. FINDINGS: The heart size is normal. The pulmonary vasculature is normal. Some increasing atelectatic type changes are at the left base. Pneumonia could be considered. Tracheostomy tube is in the midline. Nasogastric tube remains in position with the tip in left upper quadrant of the abdomen. IMPRESSION: 1. Increasing infiltrate left base. Correlate for atelectasis or pneumonia. 2. Placement of tracheostomy tube.
--- NOTE | 2020-03-02 15:55 | PN ---
PROGRESS NOTE DATE OF SERVICE: 03/02/2020 Patient is a 54-year-old pleasant white male with history of alcohol abuse and alcoholic cirrhosis of the liver, admitted to the hospital with altered mental status and acute respiratory failure/aspiration pneumonia. Presently remains on the vent and he underwent tracheostomy this morning. As per the nursing staff, no acute events noted overnight. He has been having severe diarrhea through the FMS. He is receiving lactulose 45 mL q.8 hours. PHYSICAL EXAMINATION: Remains on the vent. Apparently, patient failed attempts at extubation. VITAL SIGNS: Blood pressure 115/51, pulse rate 90, temperature 98.3. HEENT: Examination unremarkable, conjunctivae are pink, sclerae icteric, oral cavity no lesions. NECK: No JVD. CHEST: Clear to auscultation. HEART: Regular rate and rhythm. ABDOMEN: Slightly distended. Bowel sounds positive. EXTREMITIES: No pedal edema. NEURO: Sedated. LABS: WBC 16.2, hemoglobin 8.1, platelets 49,000. Bilirubin is 6.3, AST 127, ALT 61. Ammonia is 47. IMPRESSION: 1. Acute respiratory failure/aspiration pneumonia remains on the vent, intubated, status post tracheostomy today. 2. Alcoholic cirrhosis of the liver with acute alcoholic hepatitis with gradually improving bilirubin. 3. Macrocytic anemia secondary to underlying chronic liver disease. Clinically, no evidence of active bleeding. 4. Hepatic encephalopathy with improving ammonia. Remains on lactulose and Xifaxan. 5. Electrolyte abnormalities. RECOMMENDATIONS: 1. Continue with symptomatic and supportive care. 2. 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 3. Continue Xifaxan and lactulose but cut down the lactulose to titrate that he has about 500-600 mL of stool every day. 4. Continue broad-spectrum antibiotics. 5. Will follow with you closely. Thank you for this consultation. MMODL / IJN: [id number] /
--- NOTE | 2020-03-02 16:29 | P.CNNES ---
History of Present Illness Consult date: 03/02/20 Requesting physician: Kaiden Solano Reason for Consult: Poor neuro status on mechanical ventilator, not waking up on holidays History of Present Illness: Patient is a 54-year-old male who came to the hospital on 02/22/2020 for altered mental status. Patient has history of alcoholism. Patient was diagnosed with hepatic encephalopathy with ammonia of 91, liver failure, pneumonia, GI hemorrhage and sepsis. Patient subsequently developed respiratory failure and was placed on mechanical ventilation on 02/23/2020. Patient continues to be very severely encephalopathic. Patient's ammonia level has improved to 47, but he is not waking up on sedation holiday. He has failed CPAP mode ventilation. This prompted neurology consultation. Patient had undergone tracheostomy today. Patient currently is sedated with propofol 35 g. No seizures have been reported. Patient's blood test shows WBC 16.2 hemoglobin 8.1, platelets 49. ESR is 48. INR 1.5. ABG with pH 7.47, pCO2 34 and pO2 113. Saturation 98.9. Sodium 149 potassium 3.9. BUN 77, creatinine 1.07. Hemoglobin A1c 4.2. Albumin is low 2.3. Hepatitis panel negative. Patient also has history of alcoholic neuropathy, pericarditis chronic back pain, restless leg syndrome. Review of Systems ROS unobtainable: due to endotracheal tube, due to mental status Past Medical History Past Medical History: Asthma, Eye Disorder, Osteoarthritis (OA), Renal Disease Additional Past Medical History / Comment(s): Pt admitted to [facility] on 10/01/19 with bilateral lower extremity pain/possible alcohol induced neuropathy/possible opiate withdrawal/alcohol abuse possible DTs/coagulopathy, elevated LFTs, venous insufficiency. Other Hx: Unsteady gait/falls, ETOH abuse with withdrawal symptoms in the past pt states-tremors, bilateral leg pain/numbness, chronic renal disease stage I, pericarditis, bilateral macular degeneration/legally blind, chronic back pain, RLS, bilateral carpal tunnel syndrome, past infected sebaceous cyst on back History of Any Multi-Drug Resistant Organisms: None Reported Past Surgical History: Orthopedic Surgery Additional Past Surgical History / Comment(s): Right hand surgery d/t injury Past Anesthesia/Blood Transfusion Reactions: No Reported Reaction Past Psychological History: Anxiety, Depression Additional Psychological History / Comment(s): Pt resides with his fiancee. He has been using her walker on occasion. 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 Smoking Status: Light tobacco smoker Past Alcohol Use History: Abuse, Daily Additional Past Alcohol Use History / Comment(s): Pt started smoking in 1981 and states that he has recently cut down to a pack lasting 4-5 weeks. Pt states he has hx of alcohol abuse-8 beers a day but has not drank in a few weeks. Past Drug Use History: None Reported Additional Drug Use History / Comment(s): Pt smoked marijuana as a teen. - Past Family History Father Family Medical History: Cancer Additional Family Medical History / Comment(s): Father of esophageal cancer. Mother Family Medical History: No Reported History Additional Family Medical History / Comment(s): Mopther is healthy Medications and Allergies Home Medications Medication Instructions Recorded Confirmed Type Cetirizine HCl [Zyrtec] 10 mg PO DAILY 10/01/19 02/22/20 History Omeprazole 20 mg PO DAILY 10/01/19 02/22/20 History Folic Acid 1 mg PO DAILY #30 tablet 10/03/19 02/22/20 Rx Multivitamins, Thera [Multivitamin 1 tab PO DAILY #30 tablet 10/03/19 02/22/20 Rx (formulary)] Thiamine [Vitamin B-1] 100 mg PO DAILY #30 tab 10/03/19 02/22/20 Rx Albuterol Inhaler [Ventolin Hfa 1 - 2 puff INHALATION RT-Q4H PRN 02/22/20 02/22/20 History Inhaler] Allergies Allergy/AdvReac Type Severity Reaction Status Date / Time No Known Allergies Allergy Verified 02/22/20 14:27 Physical Examination - Vital Signs Vital Signs: Vital Signs Temp Pulse Resp BP Pulse Ox 03/02/20 15:33 76 03/02/20 15:24 71 03/02/20 15:00 80 15 100 03/02/20 14:00 86 12 100 03/02/20 13:00 98.3 F 90 12 123/66 100 03/02/20 11:00 80 14 100 03/02/20 10:00 83 18 100 03/02/20 09:00 95 18 100 03/02/20 08:00 99.1 F 97 12 100 03/02/20 07:52 92 03/02/20 07:41 92 03/02/20 07:00 96 21 100 03/02/20 06:00 86 20 100 03/02/20 05:00 96 19 100 03/02/20 04:00 99.1 F 105 H 21 100 03/02/20 03:34 100 03/02/20 03:20 89 03/02/20 03:00 89 20 100 03/02/20 02:00 91 21 100 03/02/20 01:00 92 21 100 03/02/20 00:00 98 F 86 24 100 03/01/20 23:22 101 H 03/01/20 23:11 101 H 03/01/20 23:00 99 22 100 03/01/20 22:00 101 H 22 100 03/01/20 21:00 101 H 21 100 03/01/20 20:00 98.7 F 102 H 20 100 03/01/20 19:35 103 H 03/01/20 19:21 100 03/01/20 19:00 93 14 100 03/01/20 18:00 92 12 100 03/01/20 17:00 99 16 100 03/01/20 16:21 100 Intake and Output 03/02/20 03/02/20 03/02/20 06:59 14:59 22:59 Intake Total 2393.298 1535.955 223.388 Output Total 2550 450 100 Balance -984.365 0447.955 123.388 Intake: IV 1024 1324 128 Dextrose 5% in Water 1, 1000 1000 125 000 ml @ 125 mls/hr IV . Q8H JARED Rx#:[id number] Normal Saline Pressure 24 24 3 Bag Intake, IV Titration 209.298 211.955 55.388 Amount Potassium Chloride 20 meq 100 In Water For Injection 1 100ml.bag @ 50 mls/hr IVPB Q2H JARED Rx#: [id number] Propofol 1,000 mg In 209.298 111.955 55.388 Empty Bag 1 bag @ Titrate IV .Q0M JARED Rx#: [id number] Tube Feeding 360 40 Other 800 Output: Urine 550 440 100 Stool 2000 Estimated Blood Loss 10 Other: Voiding Method Indwelling Catheter Indwelling Catheter Weight 91.7 kg ABP, PAP, CO, CI - Last 8 Hours Arterial Blood Pressure 153/69 Arterial Blood Pressure 147/67 Arterial Blood Pressure 115/51 Arterial Blood Pressure 105/46 Arterial Blood Pressure 103/46 Arterial Blood Pressure 108/49 On examination patient is a middle aged male, appears older than his age. He is clearly jaundiced, sedated at this time with propofol 35 g. Patient does not respond to calling his name. Patient is sedated, obtunded. Pupils are round and reacting to light. Oculocephalics are present. Corneals absent. The colostomy is in place. Patient has anasarca. Tone is equal bilaterally. Patient did not cooperate with testing of his motor, sensory or cerebellar function testing. No obvious seizure activity noted. Reflexes are absent. Plantars are flat. Gait cannot be tested. Patient has some crackles. S1 and S2 audible. Results - Laboratory Findings CBC and BMP: 03/02/20 04:30 03/02/20 11:15 Abnormal Lab Findings: Abnormal Labs 02/22/20 02/22/20 02/22/20 14:10 14:13 14:13 WBC 14.5 H RBC 2.17 L Hgb 8.3 L Hct 24.3 L MCV 111.7 H MCH 38.3 H RDW 20.6 H Plt Count 86 L Neutrophils # Neutrophils # (Manual) 12.33 H Lymphocytes # Macrocytosis Marked A PT 35.9 H INR 3.7 H APTT 46.0 H ABG pH ABG pCO2 ABG pO2 ABG HCO3 ABG Total CO2 ABG O2 Saturation Sodium Potassium Chloride Carbon Dioxide BUN Creatinine Glucose POC Glucose (mg/dL) Osmolality Plasma Lactic Acid Praveen Calcium Phosphorus Total Bilirubin AST ALT Alkaline Phosphatase Ammonia Total Protein Albumin Amylase Urine Protein Urine Ketones Urine Bilirubin Ur Leukocyte Esterase Amorphous Sediment Urine Bacteria Urine Mucus U Tricyclic Antidepress U Benzodiazepines Scrn Crossmatch See Detail 02/22/20 02/22/20 02/22/20 14:13 14:13 14:13 WBC RBC Hgb Hct MCV MCH RDW Plt Count Neutrophils # Neutrophils # (Manual) Lymphocytes # Macrocytosis PT INR APTT ABG pH ABG pCO2 ABG pO2 ABG HCO3 ABG Total CO2 ABG O2 Saturation Sodium 131 L Potassium Chloride Carbon Dioxide BUN 29 H Creatinine Glucose 101 H POC Glucose (mg/dL) Osmolality Plasma Lactic Acid Praveen 2.6 H* Calcium 7.4 L Phosphorus Total Bilirubin 16.1 H* AST 137 H ALT Alkaline Phosphatase 138 H Ammonia 91 H Total Protein Albumin 2.3 L Amylase <30 L Urine Protein 1+ H Urine Ketones 1+ H Urine Bilirubin 4+ H Ur Leukocyte Esterase Trace H Amorphous Sediment Moderate H Urine Bacteria Occasional H Urine Mucus Few H U Tricyclic Antidepress Detected H U Benzodiazepines Scrn Detected H Crossmatch 02/22/20 02/22/20 02/22/20 16:50 17:24 19:19 WBC 14.8 H RBC 2.08 L Hgb 8.1 L Hct 23.8 L MCV 114.0 H MCH 38.8 H RDW 21.0 H Plt Count 75 L Neutrophils # 11.6 H Neutrophils # (Manual) Lymphocytes # Macrocytosis Marked A PT INR APTT ABG pH ABG pCO2 ABG pO2 ABG HCO3 ABG Total CO2 ABG O2 Saturation Sodium Potassium Chloride Carbon Dioxide BUN Creatinine Glucose POC Glucose (mg/dL) 193 H Osmolality Plasma Lactic Acid Praveen 3.1 H* Calcium Phosphorus Total Bilirubin AST ALT Alkaline Phosphatase Ammonia Total Protein Albumin Amylase Urine Protein Urine Ketones Urine Bilirubin Ur Leukocyte Esterase Amorphous Sediment Urine Bacteria Urine Mucus U Tricyclic Antidepress U Benzodiazepines Scrn Crossmatch 02/22/20 02/22/20 02/22/20 19:19 20:03 20:45 WBC RBC Hgb Hct MCV MCH RDW Plt Count Neutrophils # Neutrophils # (Manual) Lymphocytes # Macrocytosis PT INR APTT ABG pH 7.49 H ABG pCO2 29 L ABG pO2 63 L ABG HCO3 ABG Total CO2 ABG O2 Saturation 92.0 L Sodium 134 L Potassium Chloride 108 H Carbon Dioxide 19 L BUN 29 H Creatinine Glucose 111 H POC Glucose (mg/dL) Osmolality Plasma Lactic Acid Praveen 2.2 H* Calcium 7.3 L Phosphorus Total Bilirubin 14.9 H AST 139 H ALT Alkaline Phosphatase 137 H Ammonia Total Protein Albumin 2.3 L Amylase Urine Protein Urine Ketones Urine Bilirubin Ur Leukocyte Esterase Amorphous Sediment Urine Bacteria Urine Mucus U Tricyclic Antidepress U Benzodiazepines Scrn Crossmatch 02/22/20 02/22/20 02/22/20 22:50 22:50 22:50 WBC 13.4 H RBC 1.89 L Hgb 7.0 L Hct 21.6 L MCV 114.4 H MCH 37.3 H RDW 20.9 H Plt Count 72 L Neutrophils # 10.2 H Neutrophils # (Manual) Lymphocytes # Macrocytosis Marked A PT INR APTT ABG pH ABG pCO2 ABG pO2 ABG HCO3 ABG Total CO2 ABG O2 Saturation Sodium 135 L Potassium Chloride Carbon Dioxide 20 L BUN 26 H Creatinine Glucose POC Glucose (mg/dL) Osmolality Plasma Lactic Acid Praveen 2.1 H* Calcium 6.5 L Phosphorus Total Bilirubin 14.9 H AST 127 H ALT Alkaline Phosphatase Ammonia Total Protein Albumin 2.5 L Amylase Urine Protein Urine Ketones Urine Bilirubin Ur Leukocyte Esterase Amorphous Sediment Urine Bacteria Urine Mucus U Tricyclic Antidepress U Benzodiazepines Scrn Crossmatch 02/23/20 02/23/20 02/23/20 00:00 04:38 06:09 WBC 15.2 H RBC 2.55 L Hgb 9.2 L D Hct 27.2 L MCV 107.0 H D MCH 36.2 H RDW 23.8 H Plt Count 79 L Neutrophils # 13.0 H Neutrophils # (Manual) Lymphocytes # Macrocytosis Marked A PT INR APTT ABG pH 7.25 L ABG pCO2 52 H ABG pO2 79 L ABG HCO3 ABG Total CO2 ABG O2 Saturation 92.6 L Sodium Potassium Chloride Carbon Dioxide BUN Creatinine Glucose POC Glucose (mg/dL) 100 H Osmolality Plasma Lactic Acid Praveen Calcium Phosphorus Total Bilirubin AST ALT Alkaline Phosphatase Ammonia Total Protein Albumin Amylase Urine Protein Urine Ketones Urine Bilirubin Ur Leukocyte Esterase Amorphous Sediment Urine Bacteria Urine Mucus U Tricyclic Antidepress U Benzodiazepines Scrn Crossmatch 02/23/20 02/23/20 02/23/20 06:09 06:09 07:54 WBC RBC Hgb Hct MCV MCH RDW Plt Count Neutrophils # Neutrophils # (Manual) Lymphocytes # Macrocytosis PT 18.5 H INR 1.9 H APTT ABG pH 7.46 H ABG pCO2 31 L ABG pO2 170 H ABG HCO3 ABG Total CO2 ABG O2 Saturation 99.8 H Sodium Potassium 5.5 H Chloride 112 H Carbon Dioxide 18 L BUN 27 H Creatinine Glucose POC Glucose (mg/dL) Osmolality Plasma Lactic Acid Praveen Calcium 7.1 L Phosphorus Total Bilirubin 15.8 H* AST 176 H ALT Alkaline Phosphatase 129 H Ammonia Total Protein Albumin 3.1 L Amylase Urine Protein Urine Ketones Urine Bilirubin Ur Leukocyte Esterase Amorphous Sediment Urine Bacteria Urine Mucus U Tricyclic Antidepress U Benzodiazepines Scrn Crossmatch 02/23/20 02/23/20 02/23/20 11:04 11:04 11:59 WBC 12.5 H RBC 2.46 L Hgb 8.5 L Hct 25.7 L MCV 104.6 H MCH RDW 23.9 H Plt Count 64 L Neutrophils # Neutrophils # (Manual) Lymphocytes # Macrocytosis Marked A PT 21.1 H INR 2.2 H APTT ABG pH ABG pCO2 ABG pO2 ABG HCO3 ABG Total CO2 ABG O2 Saturation Sodium Potassium Chloride Carbon Dioxide BUN Creatinine Glucose POC Glucose (mg/dL) 124 H Osmolality Plasma Lactic Acid Praveen Calcium Phosphorus Total Bilirubin AST ALT Alkaline Phosphatase Ammonia Total Protein Albumin Amylase Urine Protein Urine Ketones Urine Bilirubin Ur Leukocyte Esterase Amorphous Sediment Urine Bacteria Urine Mucus U Tricyclic Antidepress U Benzodiazepines Scrn Crossmatch 02/23/20 02/23/20 02/23/20 15:43 17:30 17:34 WBC 12.5 H RBC 2.53 L Hgb 8.6 L Hct 27.0 L MCV 106.7 H MCH RDW 24.1 H Plt Count 56 L Neutrophils # Neutrophils # (Manual) Lymphocytes # Macrocytosis Marked A PT INR APTT ABG pH ABG pCO2 32 L ABG pO2 66 L ABG HCO3 20 L ABG Total CO2 ABG O2 Saturation 92.9 L Sodium Potassium 3.2 L Chloride 113 H Carbon Dioxide 20 L BUN 25 H Creatinine Glucose 100 H POC Glucose (mg/dL) Osmolality Plasma Lactic Acid Praveen Calcium 7.1 L Phosphorus Total Bilirubin AST ALT Alkaline Phosphatase Ammonia Total Protein Albumin Amylase Urine Protein Urine Ketones Urine Bilirubin Ur Leukocyte Esterase Amorphous Sediment Urine Bacteria Urine Mucus U Tricyclic Antidepress U Benzodiazepines Scrn Crossmatch 02/24/20 02/24/20 02/24/20 00:04 05:05 05:05 WBC 14.7 H RBC 2.46 L Hgb 8.6 L Hct 26.0 L MCV 105.5 H MCH RDW 24.2 H Plt Count 66 L Neutrophils # 12.0 H Neutrophils # (Manual) Lymphocytes # Macrocytosis Marked A PT INR APTT ABG pH ABG pCO2 ABG pO2 ABG HCO3 ABG Total CO2 ABG O2 Saturation Sodium Potassium 3.3 L Chloride 113 H Carbon Dioxide 19 L BUN 25 H Creatinine Glucose 130 H POC Glucose (mg/dL) 203 H Osmolality Plasma Lactic Acid Praveen Calcium 7.2 L Phosphorus Total Bilirubin 11.3 H AST 132 H ALT Alkaline Phosphatase Ammonia Total Protein Albumin 2.3 L Amylase Urine Protein Urine Ketones Urine Bilirubin Ur Leukocyte Esterase Amorphous Sediment Urine Bacteria Urine Mucus U Tricyclic Antidepress U Benzodiazepines Scrn Crossmatch 02/24/20 02/24/20 02/24/20 05:30 05:30 06:59 WBC RBC Hgb Hct MCV MCH RDW Plt Count Neutrophils # Neutrophils # (Manual) Lymphocytes # Macrocytosis PT 20.8 H INR 2.1 H APTT ABG pH 7.33 L ABG pCO2 ABG pO2 67 L ABG HCO3 ABG Total CO2 ABG O2 Saturation 92.0 L Sodium Potassium Chloride Carbon Dioxide BUN Creatinine Glucose POC Glucose (mg/dL) Osmolality Plasma Lactic Acid Praveen Calcium Phosphorus Total Bilirubin AST ALT Alkaline Phosphatase Ammonia 80 H Total Protein Albumin Amylase Urine Protein Urine Ketones Urine Bilirubin Ur Leukocyte Esterase Amorphous Sediment Urine Bacteria Urine Mucus U Tricyclic Antidepress U Benzodiazepines Scrn Crossmatch 02/24/20 02/25/20 02/25/20 12:01 00:00 04:30 WBC RBC Hgb Hct MCV MCH RDW Plt Count Neutrophils # Neutrophils # (Manual) Lymphocytes # Macrocytosis PT INR APTT ABG pH ABG pCO2 ABG pO2 ABG HCO3 ABG Total CO2 ABG O2 Saturation Sodium Potassium Chloride Carbon Dioxide BUN Creatinine Glucose POC Glucose (mg/dL) 130 H 130 H Osmolality Plasma Lactic Acid Praveen Calcium Phosphorus Total Bilirubin AST ALT Alkaline Phosphatase Ammonia 89 H Total Protein Albumin Amylase Urine Protein Urine Ketones Urine Bilirubin Ur Leukocyte Esterase Amorphous Sediment Urine Bacteria Urine Mucus U Tricyclic Antidepress U Benzodiazepines Scrn Crossmatch 02/25/20 02/25/20 02/25/20 04:30 04:30 04:30 WBC 14.1 H RBC 2.49 L Hgb 9.4 L Hct 26.7 L MCV 107.0 H MCH 37.7 H RDW 23.8 H Plt Count 75 L Neutrophils # 9.8 H Neutrophils # (Manual) Lymphocytes # Macrocytosis Marked A PT 17.1 H INR 1.7 H APTT ABG pH ABG pCO2 ABG pO2 ABG HCO3 ABG Total CO2 ABG O2 Saturation Sodium Potassium 3.4 L Chloride 116 H Carbon Dioxide 19 L BUN 27 H Creatinine 1.32 H Glucose 121 H POC Glucose (mg/dL) Osmolality Plasma Lactic Acid Praveen Calcium 7.5 L Phosphorus Total Bilirubin 8.9 H AST 164 H ALT Alkaline Phosphatase Ammonia Total Protein Albumin 2.3 L Amylase Urine Protein Urine Ketones Urine Bilirubin Ur Leukocyte Esterase Amorphous Sediment Urine Bacteria Urine Mucus U Tricyclic Antidepress U Benzodiazepines Scrn Crossmatch 02/25/20 02/25/2020 07:05 12:16 16:49 WBC RBC Hgb Hct MCV MCH RDW Plt Count Neutrophils # Neutrophils # (Manual) Lymphocytes # Macrocytosis PT INR APTT ABG pH ABG pCO2 ABG pO2 65 L ABG HCO3 ABG Total CO2 ABG O2 Saturation 92.2 L Sodium Potassium Chloride Carbon Dioxide BUN Creatinine Glucose POC Glucose (mg/dL) 165 H 178 H Osmolality Plasma Lactic Acid Praveen Calcium Phosphorus Total Bilirubin AST ALT Alkaline Phosphatase Ammonia Total Protein Albumin Amylase Urine Protein Urine Ketones Urine Bilirubin Ur Leukocyte Esterase Amorphous Sediment Urine Bacteria Urine Mucus U Tricyclic Antidepress U Benzodiazepines Scrn Crossmatch 02/26/20 02/26/20 02/26/20 00:25 04:45 04:45 WBC RBC Hgb Hct MCV MCH RDW Plt Count Neutrophils # Neutrophils # (Manual) Lymphocytes # Macrocytosis PT 16.5 H INR 1.7 H APTT ABG pH ABG pCO2 ABG pO2 ABG HCO3 ABG Total CO2 ABG O2 Saturation Sodium Potassium Chloride Carbon Dioxide BUN Creatinine Glucose POC Glucose (mg/dL) 183 H Osmolality Plasma Lactic Acid Praveen Calcium Phosphorus Total Bilirubin AST ALT Alkaline Phosphatase Ammonia 115 H Total Protein Albumin Amylase Urine Protein Urine Ketones Urine Bilirubin Ur Leukocyte Esterase Amorphous Sediment Urine Bacteria Urine Mucus U Tricyclic Antidepress U Benzodiazepines Scrn Crossmatch 02/26/20 02/26/20 02/26/20 04:45 04:45 08:43 WBC 11.0 H RBC 2.44 L Hgb 8.5 L Hct 26.2 L MCV 107.3 H MCH RDW 23.3 H Plt Count 75 L Neutrophils # 8.9 H Neutrophils # (Manual) Lymphocytes # Macrocytosis Marked A PT INR APTT ABG pH ABG pCO2 ABG pO2 68 L ABG HCO3 ABG Total CO2 ABG O2 Saturation 93.1 L Sodium Potassium Chloride 118 H Carbon Dioxide 21 L BUN 33 H Creatinine 1.40 H Glucose 164 H POC Glucose (mg/dL) Osmolality Plasma Lactic Acid Praveen Calcium 7.7 L Phosphorus Total Bilirubin AST ALT Alkaline Phosphatase Ammonia Total Protein Albumin Amylase Urine Protein Urine Ketones Urine Bilirubin Ur Leukocyte Esterase Amorphous Sediment Urine Bacteria Urine Mucus U Tricyclic Antidepress U Benzodiazepines Scrn Crossmatch 02/26/20 02/26/20 02/26/20 16:16 18:57 23:41 WBC RBC Hgb Hct MCV MCH RDW Plt Count Neutrophils # Neutrophils # (Manual) Lymphocytes # Macrocytosis PT INR APTT ABG pH ABG pCO2 ABG pO2 ABG HCO3 ABG Total CO2 ABG O2 Saturation Sodium Potassium Chloride Carbon Dioxide BUN Creatinine Glucose POC Glucose (mg/dL) 151 H 150 H 148 H Osmolality Plasma Lactic Acid Praveen Calcium Phosphorus Total Bilirubin AST ALT Alkaline Phosphatase Ammonia Total Protein Albumin Amylase Urine Protein Urine Ketones Urine Bilirubin Ur Leukocyte Esterase Amorphous Sediment Urine Bacteria Urine Mucus U Tricyclic Antidepress U Benzodiazepines Scrn Crossmatch 02/27/20 02/27/20 02/27/20 04:40 04:40 07:42 WBC RBC 2.43 L Hgb 8.4 L Hct 26.2 L MCV 108.0 H MCH RDW 23.7 H Plt Count 71 L Neutrophils # Neutrophils # (Manual) Lymphocytes # Macrocytosis Marked A PT INR APTT ABG pH ABG pCO2 ABG pO2 ABG HCO3 ABG Total CO2 ABG O2 Saturation Sodium 146 H Potassium Chloride 120 H Carbon Dioxide BUN 49 H Creatinine 1.46 H Glucose 133 H POC Glucose (mg/dL) 152 H Osmolality Plasma Lactic Acid Praveen Calcium 7.8 L Phosphorus 4.6 H Total Bilirubin 5.8 H AST 130 H ALT Alkaline Phosphatase Ammonia Total Protein Albumin 2.3 L Amylase Urine Protein Urine Ketones Urine Bilirubin Ur Leukocyte Esterase Amorphous Sediment Urine Bacteria Urine Mucus U Tricyclic Antidepress U Benzodiazepines Scrn Crossmatch 02/27/20 02/27/20 02/27/20 07:59 08:30 12:56 WBC RBC Hgb Hct MCV MCH RDW Plt Count Neutrophils # Neutrophils # (Manual) Lymphocytes # Macrocytosis PT INR APTT ABG pH ABG pCO2 34 L ABG pO2 119 H ABG HCO3 ABG Total CO2 ABG O2 Saturation 99.2 H Sodium Potassium Chloride Carbon Dioxide BUN Creatinine Glucose POC Glucose (mg/dL) 145 H Osmolality Plasma Lactic Acid Praveen Calcium Phosphorus Total Bilirubin AST ALT Alkaline Phosphatase Ammonia 69 H Total Protein Albumin Amylase Urine Protein Urine Ketones Urine Bilirubin Ur Leukocyte Esterase Amorphous Sediment Urine Bacteria Urine Mucus U Tricyclic Antidepress U Benzodiazepines Scrn Crossmatch 02/27/20 02/27/20 02/27/20 17:04 17:53 23:49 WBC RBC Hgb Hct MCV MCH RDW Plt Count Neutrophils # Neutrophils # (Manual) Lymphocytes # Macrocytosis PT INR APTT ABG pH ABG pCO2 ABG pO2 ABG HCO3 ABG Total CO2 ABG O2 Saturation Sodium Potassium Chloride Carbon Dioxide BUN Creatinine Glucose POC Glucose (mg/dL) 158 H 160 H 189 H Osmolality Plasma Lactic Acid Praveen Calcium Phosphorus Total Bilirubin AST ALT Alkaline Phosphatase Ammonia Total Protein Albumin Amylase Urine Protein Urine Ketones Urine Bilirubin Ur Leukocyte Esterase Amorphous Sediment Urine Bacteria Urine Mucus U Tricyclic Antidepress U Benzodiazepines Scrn Crossmatch 02/28/20 02/28/20 02/28/20 04:40 04:40 04:40 WBC RBC 2.29 L Hgb 8.4 L Hct 25.4 L MCV 110.7 H MCH 36.5 H RDW 24.2 H Plt Count 69 L Neutrophils # Neutrophils # (Manual) Lymphocytes # Macrocytosis Marked A PT INR APTT ABG pH ABG pCO2 ABG pO2 ABG HCO3 ABG Total CO2 ABG O2 Saturation Sodium 150 H Potassium 2.8 L Chloride 123 H Carbon Dioxide BUN 61 H Creatinine 1.43 H Glucose 153 H POC Glucose (mg/dL) Osmolality Plasma Lactic Acid Praveen Calcium 7.9 L Phosphorus Total Bilirubin 5.5 H AST 116 H ALT Alkaline Phosphatase Ammonia 73 H Total Protein 6.0 L Albumin 2.2 L Amylase Urine Protein Urine Ketones Urine Bilirubin Ur Leukocyte Esterase Amorphous Sediment Urine Bacteria Urine Mucus U Tricyclic Antidepress U Benzodiazepines Scrn Crossmatch 02/28/20 02/28/20 02/28/20 05:37 07:23 08:35 WBC RBC Hgb Hct MCV MCH RDW Plt Count Neutrophils # Neutrophils # (Manual) Lymphocytes # Macrocytosis PT 14.4 H INR 1.5 H APTT ABG pH ABG pCO2 ABG pO2 ABG HCO3 ABG Total CO2 25 H ABG O2 Saturation 98.2 H Sodium Potassium Chloride Carbon Dioxide BUN Creatinine Glucose POC Glucose (mg/dL) 185 H Osmolality Plasma Lactic Acid Praveen Calcium Phosphorus Total Bilirubin AST ALT Alkaline Phosphatase Ammonia Total Protein Albumin Amylase Urine Protein Urine Ketones Urine Bilirubin Ur Leukocyte Esterase Amorphous Sediment Urine Bacteria Urine Mucus U Tricyclic Antidepress U Benzodiazepines Scrn Crossmatch 02/28/20 02/28/20 02/29/20 12:02 18:10 00:01 WBC RBC Hgb Hct MCV MCH RDW Plt Count Neutrophils # Neutrophils # (Manual) Lymphocytes # Macrocytosis PT INR APTT ABG pH ABG pCO2 ABG pO2 ABG HCO3 ABG Total CO2 ABG O2 Saturation Sodium Potassium Chloride Carbon Dioxide BUN Creatinine Glucose POC Glucose (mg/dL) 156 H 196 H 205 H Osmolality Plasma Lactic Acid Praeven Calcium Phosphorus Total Bilirubin AST ALT Alkaline Phosphatase Ammonia Total Protein Albumin Amylase Urine Protein Urine Ketones Urine Bilirubin Ur Leukocyte Esterase Amorphous Sediment Urine Bacteria Urine Mucus U Tricyclic Antidepress U Benzodiazepines Scrn Crossmatch 02/29/20 02/29/20 02/29/20 04:40 04:40 04:40 WBC 10.8 H RBC 2.28 L Hgb 8.4 L Hct 25.4 L MCV 111.7 H MCH 36.9 H RDW 23.7 H Plt Count 58 L Neutrophils # Neutrophils # (Manual) Lymphocytes # Macrocytosis Marked A PT INR APTT ABG pH ABG pCO2 ABG pO2 ABG HCO3 ABG Total CO2 ABG O2 Saturation Sodium 156 H Potassium 2.8 L Chloride 127 H Carbon Dioxide BUN 69 H Creatinine 1.32 H Glucose 157 H POC Glucose (mg/dL) Osmolality Plasma Lactic Acid Praveen Calcium 8.1 L Phosphorus Total Bilirubin 6.1 H AST 111 H ALT Alkaline Phosphatase Ammonia 64 H Total Protein 6.0 L Albumin 2.2 L Amylase Urine Protein Urine Ketones Urine Bilirubin Ur Leukocyte Esterase Amorphous Sediment Urine Bacteria Urine Mucus U Tricyclic Antidepress U Benzodiazepines Scrn Crossmatch 02/29/20 02/29/20 02/29/20 05:55 07:19 11:58 WBC RBC Hgb Hct MCV MCH RDW Plt Count Neutrophils # Neutrophils # (Manual) Lymphocytes # Macrocytosis PT INR APTT ABG pH 7.47 H ABG pCO2 ABG pO2 ABG HCO3 26 H ABG Total CO2 27 H ABG O2 Saturation 97.4 H Sodium Potassium Chloride Carbon Dioxide BUN Creatinine Glucose POC Glucose (mg/dL) 175 H 197 H Osmolality Plasma Lactic Acid Praveen Calcium Phosphorus Total Bilirubin AST ALT Alkaline Phosphatase Ammonia Total Protein Albumin Amylase Urine Protein Urine Ketones Urine Bilirubin Ur Leukocyte Esterase Amorphous Sediment Urine Bacteria Urine Mucus U Tricyclic Antidepress U Benzodiazepines Scrn Crossmatch 02/29/20 03/01/20 03/01/20 18:05 00:26 05:19 WBC RBC Hgb Hct MCV MCH RDW Plt Count Neutrophils # Neutrophils # (Manual) Lymphocytes # Macrocytosis PT INR APTT ABG pH ABG pCO2 ABG pO2 ABG HCO3 27 H ABG Total CO2 28 H ABG O2 Saturation 97.4 H Sodium Potassium Chloride Carbon Dioxide BUN Creatinine Glucose POC Glucose (mg/dL) 230 H 184 H Osmolality Plasma Lactic Acid Praveen Calcium Phosphorus Total Bilirubin AST ALT Alkaline Phosphatase Ammonia Total Protein Albumin Amylase Urine Protein Urine Ketones Urine Bilirubin Ur Leukocyte Esterase Amorphous Sediment Urine Bacteria Urine Mucus U Tricyclic Antidepress U Benzodiazepines Scrn Crossmatch 03/01/20 03/01/20 03/01/20 06:15 06:15 06:15 WBC 14.0 H RBC 2.24 L Hgb 8.0 L Hct 25.1 L MCV 112.0 H MCH 35.7 H RDW 23.1 H Plt Count 62 L Neutrophils # 12.1 H Neutrophils # (Manual) Lymphocytes # 0.8 L Macrocytosis Marked A PT INR APTT ABG pH ABG pCO2 ABG pO2 ABG HCO3 ABG Total CO2 ABG O2 Saturation Sodium 159 H Potassium 3.3 L Chloride 128 H Carbon Dioxide BUN 78 H Creatinine Glucose 138 H POC Glucose (mg/dL) Osmolality 365 H* Plasma Lactic Acid Praveen Calcium 8.1 L Phosphorus Total Bilirubin AST ALT Alkaline Phosphatase Ammonia Total Protein Albumin Amylase Urine Protein Urine Ketones Urine Bilirubin Ur Leukocyte Esterase Amorphous Sediment Urine Bacteria Urine Mucus U Tricyclic Antidepress U Benzodiazepines Scrn Crossmatch 03/01/20 03/01/20 03/01/20 10:00 11:55 17:40 WBC RBC Hgb Hct MCV MCH RDW Plt Count Neutrophils # Neutrophils # (Manual) Lymphocytes # Macrocytosis PT INR APTT ABG pH ABG pCO2 ABG pO2 ABG HCO3 ABG Total CO2 ABG O2 Saturation Sodium Potassium Chloride Carbon Dioxide BUN Creatinine Glucose POC Glucose (mg/dL) 217 H 189 H Osmolality Plasma Lactic Acid Praveen Calcium Phosphorus Total Bilirubin AST ALT Alkaline Phosphatase Ammonia 44 H Total Protein Albumin Amylase Urine Protein Urine Ketones Urine Bilirubin Ur Leukocyte Esterase Amorphous Sediment Urine Bacteria Urine Mucus U Tricyclic Antidepress U Benzodiazepines Scrn Crossmatch 03/01/20 03/02/20 03/02/20 23:42 04:30 04:30 WBC RBC Hgb Hct MCV MCH RDW Plt Count Neutrophils # Neutrophils # (Manual) Lymphocytes # Macrocytosis PT INR APTT ABG pH ABG pCO2 ABG pO2 ABG HCO3 ABG Total CO2 ABG O2 Saturation Sodium 149 H Potassium 3.4 L Chloride 121 H Carbon Dioxide BUN 77 H Creatinine Glucose 200 H POC Glucose (mg/dL) 226 H Osmolality Plasma Lactic Acid Praveen Calcium 8.1 L Phosphorus Total Bilirubin 6.3 H AST 127 H ALT 61 H Alkaline Phosphatase Ammonia 47 H Total Protein 6.1 L Albumin 2.3 L Amylase Urine Protein Urine Ketones Urine Bilirubin Ur Leukocyte Esterase Amorphous Sediment Urine Bacteria Urine Mucus U Tricyclic Antidepress U Benzodiazepines Scrn Crossmatch 03/02/20 03/02/20 03/02/20 04:30 05:03 05:44 WBC 16.2 H RBC 2.22 L Hgb 8.1 L Hct 25.3 L MCV 114.0 H MCH 36.7 H RDW 22.7 H Plt Count 49 L Neutrophils # 14.5 H Neutrophils # (Manual) Lymphocytes # Macrocytosis Marked A PT INR APTT ABG pH 7.47 H ABG pCO2 34 L ABG pO2 113 H ABG HCO3 ABG Total CO2 26 H ABG O2 Saturation 98.9 H Sodium Potassium Chloride Carbon Dioxide BUN Creatinine Glucose POC Glucose (mg/dL) 205 H Osmolality Plasma Lactic Acid Praveen Calcium Phosphorus Total Bilirubin AST ALT Alkaline Phosphatase Ammonia Total Protein Albumin Amylase Urine Protein Urine Ketones Urine Bilirubin Ur Leukocyte Esterase Amorphous Sediment Urine Bacteria Urine Mucus U Tricyclic Antidepress U Benzodiazepines Scrn Crossmatch 03/02/20 03/02/20 11:22 12:37 WBC RBC Hgb Hct MCV MCH RDW Plt Count Neutrophils # Neutrophils # (Manual) Lymphocytes # Macrocytosis PT INR APTT ABG pH ABG pCO2 ABG pO2 ABG HCO3 ABG Total CO2 ABG O2 Saturation Sodium Potassium Chloride Carbon Dioxide BUN Creatinine Glucose POC Glucose (mg/dL) 183 H 166 H Osmolality Plasma Lactic Acid Praveen Calcium Phosphorus Total Bilirubin AST ALT Alkaline Phosphatase Ammonia Total Protein Albumin Amylase Urine Protein Urine Ketones Urine Bilirubin Ur Leukocyte Esterase Amorphous Sediment Urine Bacteria Urine Mucus U Tricyclic Antidepress U Benzodiazepines Scrn Crossmatch Assessment and Plan Assessment: * Altered mental status, likely related to hepatic and/or toxic metabolic encephalopathy. * Alcoholic liver disease with hepatic cirrhosis and ascites, anasarca. * Status post acute kidney injury, septic shock. * Ventilator-dependent respiratory failure, status post tracheostomy. Plan: * We will check EEG to evaluate for encephalopathy, rule out subclinical status. * Your medical management. * We will follow.
[2020-03-02 17:55] LABS: Glucose,Whole Blood 275 mg/dL (75-99)
[2020-03-02 17:55] LABS: Glucose,Whole Blood 246 mg/dL (75-99)
--- NOTE | 2020-03-02 18:13 | US ---
EXAMINATION TYPE: US carotid duplex BILAT DATE OF EXAM: 03/02/2020 COMPARISON: NONE CLINICAL HISTORY: Altered mental status. ICU patient. Limited due to trachea tube placement and bind ings. EXAM MEASUREMENTS: RIGHT: Peak Systolic Velocity (PSV) cm/sec ----- Right CCA: 89.5 ----- Right ICA: 133.1 ----- Right ECA: 83.7 ICA/CCA ratio: 1.5 RIGHT: End Diastole cm/sec ----- Right CCA: 16.9 ----- Right ICA: 34.3 ----- Right ECA: 6.7 LEFT: Peak Systolic Velocity (PSV) cm/sec ----- Left CCA: 101.3 ----- Left ICA: 113.3 ----- Left ECA: 103.0 ICA/CCA ratio: 1.1 LEFT: End Diastole cm/sec ----- Left CCA: 14.0 ----- Left ICA: 26.5 ----- Left ECA: 27.7 VERTEBRALS (direction of flow): Right Vertebral: Antegrade Left Vertebral: Antegrade Rhythm: Normal No significant stenosis, plaque or wall thickening. Slightly elevated right distal ICA. IMPRESSION: Images and measurements suggest close to 50% stenosis in the right internal carotid sebastien ry and left internal carotid artery. There is antegrade flow in the vertebral arteries. Criteria for Assigning % of Stenosis / Diameter reduction (Estimation based on the indirect measurements of the internal carotid artery velocities (ICA PSV). 1. Normal (no stenosis)=ICA PSV < 125 cm/s: ratio < 2.0: ICA EDV<40 cm/s. 2. Less than 50% stenosis=ICA PSV < 125 cm/s: ratio < 2.0: ICA EDV<40 cm/s. 3. 50 to 69% stenosis=ICA PSV of 125 to 230 cm/s: ration 2.0 ? 4.0: ICA EDV 40-100 cm/s. 4. Greater than 70% stenosis to near occlusion= ICA PSV > 230 cm/s: ratio > 4.0: ICA EDV > 100 cm/s. 5. Near occlusion= ICA PSV velocities may be low or undetectable: variable ratio and ICA EDV. 6. Total occlusion=unable to detect flow.
[2020-03-02 23:40] LABS: Glucose,Whole Blood 208 mg/dL (75-99)
[2020-03-03] MEDS: IPRATROPIUM-ALBUTEROL 3 ML NEB INHALATION PRN (03:08)
[2020-03-03] MEDS: PROPOFOL 1,000 MG in EMPTY BAG 1 BAG IV SCH ×3 (03:49→14:00)
[2020-03-03 05:10] LABS: Anisocytosis Moderate; Basophils % (A) 0 %; Eosinophils # (A) 0.1 k/uL (0-0.7); Eosinophils % (A) 0 %; HCT 26.3 % (39.0-53.0); HGB 8.1 gm/dL (13.0-17.5); Hypochromasia Marked; Lymphocytes # (A) 1.1 k/uL (1.0-4.8); Lymphocytes % (A) 6 %; MCH 35.5 pg (25.0-35.0); MCHC 30.9 g/dL (31.0-37.0); MCV 114.7 fL (80.0-100.0); Macrocytosis Marked; Mean Platelet Volume 13.6; Monocytes # (A) 0.5 k/uL (0-1.0); Monocytes % (A) 2 %; Neutrophils # (A) 17.4 k/uL (1.3-7.7); Neutrophils % (A) 91 %; RBC 2.29 m/uL (4.30-5.90); RDW 21.9 % (11.5-15.5); WBC 19.2 k/uL (3.8-10.6)
[2020-03-03 05:17] LABS: ALT 73 U/L (4-49); AST 129 U/L (17-59); African American GFR (CKD) >90 (>60 ml/min/1.73 sqM); Albumin 2.2 g/dL (3.5-5.0); Alkaline Phosphatase 85 U/L (38-126); Anion Gap 5 mmol/L; Blood Urea Nitrogen 69 mg/dL (9-20); Calcium 7.9 mg/dL (8.4-10.2); Carbon Dioxide 24 mmol/L (22-30); Chloride 117 mmol/L (98-107); Glucose 228 mg/dL (74-99); Non-African American GFR(CKD) >90 (>60 ml/min/1.73 sqM); Potassium 3.5 mmol/L (3.5-5.1); Sodium 146 mmol/L (137-145); Total Bilirubin 6.5 mg/dL (0.2-1.3); Total Protein 5.9 g/dL (6.3-8.2)
[2020-03-03 05:20] LABS: ABG Base Excess -0.2 mmol/L; ABG HCO3 24 mmol/L (21-25); ABG Oxygen Saturation 98.4 % (94-97); ABG PCO2 38 mmHg (35-45); ABG PH 7.42 (7.35-7.45); ABG PO2 104 mmHg (83-108); ABG TCO2 26 mmol/L (19-24); Allen Test Performed? Yes
[2020-03-03 05:42] LABS: Platelet Count 41 k/uL (150-450)
[2020-03-03 06:08] LABS: INR 1.6 (<1.2); Prothrombin Time 15.6 sec (9.0-12.0)
[2020-03-03 06:39] LABS: Glucose,Whole Blood 234 mg/dL (75-99)
[2020-03-03 06:50] LABS: Large Platelets Present; Polychromasia Present
[2020-03-03 06:51] LABS: Target Cells Present
[2020-03-03] MEDS: DEXTROSE 5% IN WATER 1,000 ML IV SCH ×3 (06:55→23:49)
[2020-03-03] MEDS: INSULIN ASPART (NovoLOG) 100 UNIT/ML VIAL SQ SCH ×3 (06:55→23:49)
--- NOTE | 2020-03-03 07:31 | XR ---
EXAMINATION TYPE: XR chest 1V portable DATE OF EXAM: 03/03/2020 COMPARISON: Prior chest x-ray 03/02/2020 HISTORY: Tracheostomy tube, abnormal chest x-ray , ICU management TECHNIQUE: Single frontal view of the chest is obtained. FINDINGS: Tracheostomy tube and NG tube are stable overlying appropriate positions. Bandlike area of increased attenuation persists at the left lung base, there is retrocardiac density. Lung volumes ar e low and the patient is rotated. There is no evident pneumothorax. Heart is stable. Aorta is dense. Interstitium is increased. Old posterior right fourth rib fracture noted appears healed. IMPRESSION: Correlate for left lower lobe pneumonia versus subsegmental atelectasis. There may be co mponent of interstitial edema.
--- NOTE | 2020-03-03 08:52 | P.PN ---
Subjective Progress Note Date: 03/03/20 Principal diagnosis: Acute liver failure, acute hypoxic respiratory failure This is a 54-year-old white male, history of alcohol abuse, patient was brought into the ER with change in mental status according to EMS. Patient could not give any history, he was a very poor historian upon arrival to the ER. Patient is supposedly a daily drinker, however from my review of the chart, I saw this patient back on 11/11/19, patient presented back then with multiple posterior lateral rib fractures on the right. Apparently he fell in his bathroom, and landed on the side of the top sustaining multiple rib fractures. Patient sustained rib fractures of 910 and 11 ribs. Patient is also known to have history of severe emphysema/COPD. He is legally blind. He has history of pericarditis, anxiety, and history of degenerative joint disease. Patient was discharged home on 11/12/19. Drug screen in the ER was positive for tricyclic antidepressants and positive for benzodiazepines. Rest of the drug screen was basically negative. ABG in the ER showed a pO2 of 63 pCO2 of 29 pH of 7.49. Patient was also noted to have elevated INR of 3.7. Low hemoglobin of 7.0 although his baseline hemoglobin from 2 months ago was 15.1. Ammonia level was 91. Total bilirubin was 14.9, and his liver enzymes were a bit elevated. Normal amylase and lipase were noted. Gallbladder ultrasound showed abdominal ascites. Chest x-ray showed bilateral diffuse infiltrates. Patient was presumed septic upon presentation, received fluid boluses of 2500 ML's. Patient was found to have hepatic encephalopathy liver failure, bilateral pneumonia, GI hemorrhage and sepsis. Early this morning, patient was intubated, placed on mechanical ventilation, and he was aware of the patient since admission. Presently the patient is on assist control rate of 28 tidal volume is 500 FiO2 is 100% PEEP of 5. ABG showed a pO2 of 170 pCO2 of 31 pH of 7.46. Hence I cut down the FiO2 to 50%, increased the PEEP to 8, cut down the tidal volume to 450, and decrease the respiratory rate to 26. Patient is on Sandostatin for his GI bleeding, and he is yet to be seen by gastroenterology on consultation is also on Protonix. He is on lactulose for his elevated ammonia level. And he is empirically on Zosyn for presumptive aspiration pneumonia. Echocardiogram showed evidence of good LV function. And mild valvular heart disease. BNP level was borderline elevated at 910 Patient was reevaluated today on 02/24/20, remains on mechanical ventilation. He is presently on assist control rate of 26 tidal volume is 450 FiO2 of 60% and PEEP of 8. However I increased his PEEP to 12 and cut down his FiO2 to 50%. At night the patient developed worsening agitation, and Stacking his breaths, was not synchronous with mechanical ventilation, hence had to place the patient on Nimbex. Today I plan to discontinue Nimbex and place him on fentanyl 25 g per hour. Patient will be started on tube feeding, and I cut down his IV fluid to 50 MLS per hour. Remains on propofol at 60 mcg/kg/m, Nimbex which will be disco ntinued, but creatinine which was discontinued this morning, and norepinephrine at 0.06 mcg/kg/m. Enteral feeding to be started today by agronomy manager. Patient remains on antibiotics, remains on lactulose for his elevated ammonia level which is 80 today. And he remains on Protonix. Chest x-ray showed more consolidation noted bilaterally in both lungs more so in the left lung. Bilateraldisease is noted consistent with aspiration pneumonia. Sputum cultures and blood cultures so far remain on diagnostic. ABG today showed a pO2 of 67 pCO2 of 39 pH of 7.33. WBC count is 14.7 hemoglobin is 8.6 platelets are 66,000 and INR is 2.1. Electrolytes are basically normal renal profile showed beer of 25 creatinine 0.94. Patient was reevaluated today on 02/25/20, remains in the intensive care unit, remains on mechanical ventilation. His ventilator settings are assist control rate of 26, tidal volume is 450 FiO2 is 50% and PEEP is at 12. ABG showed a pO2 of 65 pCO2 of 37 pH of 7.36, hence no change was made in the ventilator settings. Patient remains on norepinephrine at 0.09 mcg/kg/m, propofol at 45 mcg/kg/m, fentanyl at 0.5 mcg/kg/h. Remains on enteral feeding at 30 MLS per hour goal is 45. Remains on Zosyn for empiric coverage of aspiration pneumonia. Remains on lactulose and the dose was increased to 45 ML 4 times a day, and added Xifaxan at 550 mg twice a day. His lactulose does not seem to be inducing enough diarrhea did get his ammonia level down. Continues to have significantly elevated ammonia level in spite of lactulose for the last 2 days. Patient continues to have ascites. And no plans for paracentesis as recommended by gastroenterology at this point. Chest x-ray showed very minimal improvement if any in his bilateral infiltrates. The bilateral infiltrates are suggestive of aspiration pneumonia. Obviously the patient is known to have history of alcoholism, and he presented with alcoholic liver hepatitis, and hepatic encephalopathy. Labs today were all reviewed WBC is 14.1 hemoglobin is 9.4 platelets are 75,000 INR is 1.7. Electrolytes are unremarkable except for low potassium of 3.4 BUN of 27 creatinine 1.32. Liver enzymes are borderline elevat ed. Total bilirubin is improving down to 8.9 today. Albumin is 2.3 Patient was reevaluated today on 02/26/20, remains in the ICU, intubated, mechanically ventilated. Patient is on assist control rate of 26 tidal volume 450 FiO2 50% and PEEP is 12. Chest x-ray is showing definite improvement, zeng rosio his ABG is basically about the same with a pO2 of 68 pCO2 of 38 and pH of 7.38. His ammonia level is on the rise in spite of the fact that the patient is on relatively high dose of lactulose and he is also on Xifaxan. Patient remains on propofol at 40 mcg/kg/m, fentanyl at 0.5 mcg/kg/h, he is on very small dose of norepinephrine at 0.01 mcg/kg/m, IV fluid is at KVO, and he is also on Zosyn for presumptive aspiration pneumonia. Remains on diuretics in the form of Lasix, Aldactone. His Lasix was increased to 40 mg 3 times a day, and he is on Aldactone via nasogastric tube. Patient was taken off sedation today, however he became extremely agitated, tachypneic, tachycardic, hence we had to place him back on sedation and continued assist control mode of mechanical ventilation. Chest x-ray again showed improvement. WBC count today is 11 hemoglobin is 8.5 his INR is 1.7 basic metabolic profile is improving, creatinine however is up to 1.40, and the patient obviously developed acute kidney injury. This could very well be related to his sepsis, and related to his hypotension requiring norepinephrine. Cultures including blood cultures and sputum cultures have been negative. Patient was reevaluated today in the ICU, remains intubated and mechanically ventilated. His ventilator settings are assist control rate of 26 tidal volume is 450 FiO2 is 50% and PEEP is at 12 chest x-ray showed dramatic improvement. His ABG is significantly improved hence I recommended cutting down the PEEP to 8. His ammonia level is significantly improved today, it is down to 69. Sodium seems to be creeping up a little bit, and I recommended free water flushes via orogastric tube. Patient is on propofol at 50 mcg/kg/m, his tube feeding is presently on hold because of increased residual. Patient was given a sedation holiday, however when he went off propofol, the patient became extremely agitated, restless, biting on the endotracheal tube, tachycardic, tachypneic, and was extremely agitated. Hence I recommended placing him back on propofol, and not quite ready for weaning. Labs were all reviewed today. And addressed accordingly including his elevated sodium and elevated BUN of 49 creatinine 1.46. Chest x-ray showed significant improvement in his bilateral infiltrates/aspiration pneumonia. Patient was reevaluated today on 02/28/20, remains in the ICU, intubated and mechanically ventilated. His ventilator settings are assist control rate of 26 FiO2 50% tidal volume of 450 PEEP is at 8 and today I cut down his FiO2 to 45% and kept him on a PEEP of 8. ABG this morning showed a pO2 of 102 pCO2 of 35 pH of 7.45. Patient has significantly elevated sodium today of 150 potassium is low at 2.8 ammonia level remains high at 73. Patient is not requiring any pressors, he is on propofol at 34 mcg/kg/m. Patient is on enteral feeding. I do plan to wean the patient off propofol sometime today, and assess mental status again. This was attempted yesterday, but the patient didn't do well, I have also recommended free water flushes to correct his hyper natremia. The patient is seen today 02/29/2020 in follow-up in the intensive care unit. He remains intubated on mechanical vent. Current settings are assist control at a rate of 26, FiO2 45% tidal volume 450 and a PEEP of 8. Morning blood gases reveal a P O2 of 93, pCO2 of 35 and a pH of 7.47. Chest x-ray reveals stable bilateral atelectasis/infiltrate. He is sedated on propofol at 50 mcg/kg/m. Antibiotics in the form of Zosyn. He remains on IV diuretics. He is tolerating his tube feedings. He remains hypernatremic despite free water. IVs changed to D5W at 75 ML's per hour. Sodium 156. Potassium 2.8. Creatinine 1.32. Glucose 157. White count 10.8. Hemoglobin 8.4. Platelet count 58,000. On 03/01/2020 patient seen in follow-up in the intensive care unit, he remains sedated, intubated on mechanical ventilator, current vent settings are assist control mode of ventilation with a rate of 12, tidal volume is 450, FiO2 45% and PEEP of 5, this morning blood gases show pO2 of 93, pCO2 38, pH of 7.45. Current IV fluids include D5 W5 to 75 ML per hour, and Diprivan at 45 mics per kilo per minute, no vasoactive drips, tube feedings of vital high protein at a rate of 45 with a goal of 45. Today's chest x-ray has been reviewed showing stable appearance of the bibasilar opacities. T-max in the last 24 hours was 99.7F, afebrile this morning, 1 sputum cultures have shown no growth, today's blood work has been reviewed, limits according to 14.0, hemoglobin of 8.0, platelet count is 62, sodium is 159 is on D5W at 75 ML per hour, in addition to free water flushes with 200 mL every 4 hours, patient continues on lactulose and rifaximin, and is having lactulose induced diarrhea and he had 2.4 L in liquid stool output in the last 24 hours. Patient apparently has failed spontaneous breathing trials for last 4 days. We will proceed with a spontaneous awakening and spontaneous breathing trials again today, we will speak to the family about placement of tracheostomy and PEG tube insertion. On 03/02/2020 patient is seen in follow-up in intensive care unit, he remains sedated, intubated on mechanical ventilator, current vent settings are assist- control with a rate of 12, tidal vital 450, FiO2 is 45%, and PEEP of 8, this morning blood gases show pO2 of 113, pCO2 is 34, and pH of 7.47, PEEP has been dropped to 5. IV fluids include D5 W at 125 ML per hour, Diprivan is a 40 mics per kilo per minute, no vasoactive drips, tube feedings are on hold patient was on vital high protein at 45 with a goal of 45 and 400 ML every 4 hours water flushes. Patient was given a sedation holiday yesterday, he never really fully awakened, he was placed on pressure-support of 8, he tolerated it for 3 hours, however there he became predicted, and was placed back on assist control mode of ventilation, yesterday we spoke to the patient's who was a continue with full code CODE STATUS and would like to proceed with tracheostomy and PEG tube placement. Today's chest x-ray has been reviewed and is relatively stable, accounting for technical difficulties, bibasilar opacities and atelectases and pleural effusions. We discontinued patient's Lasix and Aldactone yesterday in view of his hypernatremia, patient continues to have large liquid stool output, 4.7 L in the last 24 hours, continues on lactulose and rifaximin. Yesterday's ammonia level was 44, today it is 47. Today's blood work has been reviewed On 03/03/2020 patient seen in follow-up in the intensive care unit, he remains sedated, on mechanical ventilator, yesterday he had a tracheostomy inserted, this morning he is on assist-control mode of ventilation with a rate of 12, tidal volume is 450, FiO2 is 45%, and PEEP of 5. This morning blood gases show pO2 of 14, pCO2 38, and pH of 7.42. Patient is on IV fluids with D5W at a rate of 125 ML per hour, Diprivan and is at 40 mics per kilo per minute. No vasoactive drips. His feedings are on hold for PEG tube insertion today. Patient is afebrile. Hemodynamically he has been stable, no sedation holiday was given yesterday, the day before patient's addition was held, however patient never fully awakened. Today's labs have been reviewed, showing white blood cell count 19.2, hemoglobin of 8.1, platelet count is 41, INR today is 1.6, sodium is 146, potassium 3.5, chloride is 117, CO2 is 24, BUN 69, creatinine is 0.94. Ammonia level today 62, patient remains on lactulose 40 mg every 8 hours, in addition to Xifaxan. Today's chest x-ray has been reviewed showing left lower lobe pneumonia versus subsegmental atelectasis with a component of interstitial edema. Since diuretics remain on hold regarding hyper nature anemia. Hypernatremia is improving, and his sodium level is 146 today. Blood and sputum culture remains negative. Patient has completed a course of Levaquin. Objective - Vital Signs Vital signs: Vital Signs Temp 96.3 F L 03/03/20 08:00 Pulse 64 03/03/20 08:00 Resp 10 L 03/03/20 08:00 BP 123/66 03/03/20 08:00 Pulse Ox 100 03/03/20 08:00 Intake & Output 03/02/20 03/03/20 03/03/20 18:59 06:59 18:59 Intake Total 2728.343 2712.063 330.46 Output Total 785 840 175 Balance 0569.465 8645.063 155.46 Weight 88.4 kg Intake: IV 1836 1536 256 Dextrose 5% in Water 1, 1500 1500 250 000 ml @ 125 mls/hr IV . Q8H JARED Rx#:[id number] Normal Saline Pressure 36 36 6 Bag Intake, IV Titration 267.343 281.063 74.46 Amount Potassium Chloride 20 meq 100 In Water For Injection 1 100ml.bag @ 50 mls/hr IVPB Q2H JARED Rx#: [id number] Propofol 1,000 mg In 167.343 281.063 74.46 Empty Bag 1 bag @ Titrate IV .Q0M JARED Rx#: [id number] Tube Feeding 225 495 Other 400 400 Output: Urine 775 840 175 Estimated Blood Loss 10 Other: Voiding Method Indwelling Catheter Indwelling Catheter ABP, PAP, CO, CI - Last Documented Arterial Blood Pressure 100/46 - Exam GENERAL EXAM: Sedated, 54-year-old white male, trached to the mechanical ventilator, with settings of assist control rate of 12, tidal volume is 450, FiO2 45% and PEEP of 5 comfortable in no apparent distress. HEAD: Normocephalic/atraumatic. EYES: Normal reaction of pupils, equal size. Conjunctiva pink, sclera white. NOSE: Clear with pink turbinates. THROAT: No erythema or exudates. NECK: No masses, no JVD, no thyroid enlargement, no adenopathy. CHEST: No chest wall deformity. Symmetrical expansion. LUNGS: Equal air entry with no crackles, wheeze, rhonchi or dullness. CVS: Regular rate and rhythm, normal S1 and S2, no gallops, no murmurs, no rubs ABDOMEN: Soft, nontender. No hepatosplenomegaly, normal bowel sounds, no guarding or rigidity. EXTREMITIES: No clubbing, no edema, no cyanosis, 2+ pulses and upper and lower extremities. MUSCULOSKELETAL: Muscle strength and tone normal. SPINE: No scoliosis or deformity SKIN: No rashes CENTRAL NERVOUS SYSTEM: Sedated and intubated. No focal deficits, tone is carole l in all 4 extremities. - Labs CBC & Chem 7: 03/03/20 04:50 03/03/20 04:50 Labs: Abnormal Lab Results - Last 24 Hours (Table) 03/02/20 03/02/20 03/02/20 Range/Units 11:22 12:37 17:52 WBC (3.8-10.6) k/uL RBC (4.30-5.90) m/uL Hgb (13.0-17.5) gm/dL Hct (39.0-53.0) % MCV (80.0-100.0) fL MCH (25.0-35.0) pg MCHC (31.0-37.0) g/dL RDW (11.5-15.5) % Plt Count (150-450) k/uL Neutrophils # (1.3-7.7) k/uL Macrocytosis PT (9.0-12.0) sec INR (<1.2) ABG Total CO2 (19-24) mmol/L ABG O2 Saturation (94-97) % Sodium (137-145) mmol/L Chloride (98-107) mmol/L BUN (9-20) mg/dL Glucose (74-99) mg/dL POC Glucose (mg/dL) 183 H 166 H 275 H (75-99) mg/dL Calcium (8.4-10.2) mg/dL Total Bilirubin (0.2-1.3) mg/dL AST (17-59) U/L ALT (4-49) U/L Ammonia (<30) umol/L Total Protein (6.3-8.2) g/dL Albumin (3.5-5.0) g/dL 07/03/1503/02/20 03/03/20 Range/Units 17:54 23:39 04:50 WBC (3.8-10.6) k/uL RBC (4.30-5.90) m/uL Hgb (13.0-17.5) gm/dL Hct (39.0-53.0) % MCV (80.0-100.0) fL MCH (25.0-35.0) pg MCHC (31.0-37.0) g/dL RDW (11.5-15.5) % Plt Count (150-450) k/uL Neutrophils # (1.3-7.7) k/uL Macrocytosis PT (9.0-12.0) sec INR (<1.2) ABG Total CO2 (19-24) mmol/L ABG O2 Saturation (94-97) % Sodium 146 H (137-145) mmol/L Chloride 117 H (98-107) mmol/L BUN 69 H (9-20) mg/dL Glucose 228 H (74-99) mg/dL POC Glucose (mg/dL) 246 H 208 H (75-99) mg/dL Calcium 7.9 L (8.4-10.2) mg/dL Total Bilirubin 6.5 H (0.2-1.3) mg/dL AST 129 H (17-59) U/L ALT 73 H (4-49) U/L Ammonia (<30) umol/L Total Protein 5.9 L (6.3-8.2) g/dL Albumin 2.2 L (3.5-5.0) g/dL 03/03/20 03/03/20 03/03/20 Range/Units 04:50 05:09 05:50 WBC 19.2 H (3.8-10.6) k/uL RBC 2.29 L (4.30-5.90) m/uL Hgb 8.1 L (13.0-17.5) gm/dL Hct 26.3 L (39.0-53.0) % MCV 114.7 H (80.0-100.0) fL MCH 35.5 H (25.0-35.0) pg MCHC 30.9 L (31.0-37.0) g/dL RDW 21.9 H (11.5-15.5) % Plt Count 41 L (150-450) k/uL Neutrophils # 17.4 H (1.3-7.7) k/uL Macrocytosis Marked A PT (9.0-12.0) sec INR (<1.2) ABG Total CO2 26 H (19-24) mmol/L ABG O2 Saturation 98.4 H (94-97) % Sodium (137-145) mmol/L Chloride (98-107) mmol/L BUN (9-20) mg/dL Glucose (74-99) mg/dL POC Glucose (mg/dL) (75-99) mg/dL Calcium (8.4-10.2) mg/dL Total Bilirubin (0.2-1.3) mg/dL AST (17-59) U/L ALT (4-49) U/L Ammonia 52 H (<30) umol/L Total Protein (6.3-8.2) g/dL Albumin (3.5-5.0) g/dL 03/03/20 03/03/20 Range/Units 05:50 06:38 WBC (3.8-10.6) k/uL RBC (4.30-5.90) m/uL Hgb (13.0-17.5) gm/dL Hct (39.0-53.0) % MCV (80.0-100.0) fL MCH (25.0-35.0) pg MCHC (31.0-37.0) g/dL RDW (11.5-15.5) % Plt Count (150-450) k/uL Neutrophils # (1.3-7.7) k/uL Macrocytosis PT 15.6 H (9.0-12.0) sec INR 1.6 H (<1.2) ABG Total CO2 (19-24) mmol/L ABG O2 Saturation (94-97) % Sodium (137-145) mmol/L Chloride (98-107) mmol/L BUN (9-20) mg/dL Glucose (74-99) mg/dL POC Glucose (mg/dL) 234 H (75-99) mg/dL Calcium (8.4-10.2) mg/dL Total Bilirubin (0.2-1.3) mg/dL AST (17-59) U/L ALT (4-49) U/L Ammonia (<30) umol/L Total Protein (6.3-8.2) g/dL Albumin (3.5-5.0) g/dL Assessment and Plan Plan: Assessment: Acute hypoxic respiratory failure, suspect aspiration pneumonia. Chest x-ray has shown improvement over the last 2 days, and this is also reflected in the improvement noted in the ABG. Acute sepsis, possible septic shock, patient required pressors, improved, and is currently off pressors. This is related to aspiration pneumonia. Blood cultures and sputum cultures remain negative. Alcohol liver disease with ascites. Jaundice, and elevated liver enzymes. Blood loss anemia, most likely the patient has acute or subacute GI bleeding, GI is following. Hemoglobin has been stable over last several days, no signs of active bleeding at this time Acute hepatic encephalopathy with significantly elevated ammonia level. Today's ammonia level is a 52, patient is on lactulose and Xifaxan Recent history of fall about 2 months ago, and multiple right-sided rib fractures. History of alcoholic neuropathy. History of pericarditis Chronic back pain History of restless leg syndrome. Acute kidney injury secondary to sepsis and septic shock. Strongly doubt hepatorenal syndrome. Improved Hypernatremia, related to free water deficit. Patient continues on D5W and free water flushes, and today on 03/02/2020 serum sodium is down to 146 from 149 Plan: Continue same vent settings, patient is scheduled for PEG tube insertion today, after he returns from this procedure will plan on proceeding with daily interruption sedation to assess mental status. Continue same dose lactulose and Xifaxan. We'll continue with D5W at 125, likely his tube feedings and water flushes will be on hold for 24 hours post PEG tube insertion. Today's chest x- ray has been reviewed showing left lower lobe infiltrate versus atelectasis with a component of interstitial edema. Patient has been afebrile, he completed a course of antibiotics. Hemodynamically he is stable, we may consider addition of diuretics. We'll likely proceed with changing his right femoral triple-lumen catheter tomorrow, we'll give a dose of DDAVP for the procedure. Culture data has been reviewed and remains negative to date. Repeat chest x-ray and labs in the morning, follow-up with ammonia level. Daily interruption of sedation. I performed a history & physical examination of the patient and discussed their management with my nurse practitioner, Mary Kay Nieto. I reviewed the nurse practitioner's note and agree with the documented findings and plan of care. Lung sounds are positive for diminished breath sounds. The findings and the impression was discussed with the patient. I attest to the documentation by the nurse practitioner. Time with Patient: Greater than 30
[2020-03-03] MEDS: RIFAXIMIN 550 MG TABLET PO SCH ×2 (08:53→23:49)
[2020-03-03] MEDS: LACTULOSE 20 GM/30 ML CUP PO SCH ×3 (08:53→23:50)
[2020-03-03] MEDS: CHLORHEXIDINE GLUCONATE 15 ML CUP MUCOUS MEM SCH ×2 (08:56→23:49)
[2020-03-03] MEDS: methylPREDNISolone SOD SUCCI 40 MG/ML 1 ML VIAL IV SCH (08:56)
[2020-03-03] MEDS: PANTOPRAZOLE 40 MG/10 ML VIAL IVP SCH ×2 (08:56→23:49)
[2020-03-03] MEDS: IPRATROPIUM-ALBUTEROL 3 ML NEB INHALATION SCH ×4 (09:11→19:34)
[2020-03-03 11:46] LABS: Glucose,Whole Blood 175 mg/dL (75-99)
[2020-03-03] MEDS ORDERED: POTASSIUM CHLORIDE 20 MEQ in WATER FOR INJECTION 1 100ML.BAG IVPB STA (13:16)
--- NOTE | 2020-03-03 14:00 | EEG ---
ELECTROENCEPHALOGRAM REPORT DATE OF SERVICE: 03/03/2020 PREAMBLE: This is a 54-year-old male with altered mental status. EEG FINDINGS: This is a 21 channel portable EEG recorded in a patient utilizing 10/20 international system with referential and bipolar montages. The background consists of poorly developed and regulated, predominantly low-voltage generalized delta activity, intermixed with some theta activity. Background does not seem to be reactive to eye opening or closing. Does not seem to be reactive to photic stimulation. Patient also was seems to have some sleep spindles seen intermittently during this study. However, no clear-cut sleep patterns were noticed. There are intermittent episodes of generalized suppression seen lasting for 2-4 seconds. No epileptiform activity was seen. EKG rhythm lead revealed no arrhythmia. IMPRESSION: This is an abnormal EEG due to: Background slowing with intermittent suppression. This is suggestive of generalized cerebral dysfunction as can be seen with toxic metabolic encephalopathy or related to diffuse structural brain abnormality or medication effect. Clinical correlation is recommended. No obvious epileptiform activity was seen. Followup EEG recommended, if clinically indicated. LEANN / GENETN: [id number] / MTDD
--- NOTE | 2020-03-03 14:45 | P.PN ---
Progress Note - Text Progress Note Date: 03/03/20 The patient underwent tracheostomy yesterday. Today. Patient's current ventilator. History Is clean. Patient was scheduled for PEG tube placement today. However due to endoscopy conflict in scheduling. It will be postponed until tomorrow.
--- NOTE | 2020-03-03 15:08 | P.PN ---
Subjective Progress Note Date: 03/03/20 This is a 54-year-old gentleman, history of polysubstance abuse including alcohol abuse , falls with recent rib fractures, legally blind, osteoarthritis and multiple other medical issues presented to the ER with changes in mental status 2 days. Drug screen positive for tricyclics and benzos, serum alcohol less than 10. UA reported dark brown cloudy urine with occasional bacteria, hyaline casts, 2 WBCs, trace leukocytes, 4+ bilirubin, negative for nitrates. Ammonia level 91, T bili 14.9, currently 15.8 , elevated LFTs .Gallbladder ultrasound reporting abdominal ascites, abdominal x-ray nonacute, right foot x- ray reported no fracture, soft tissue swelling, EKG reported sinus tachycardia, troponin normal, BNP 910, echo reported normal LV function, EF 60-65% ,lactic acid 2.1 now down to 1.7, BUN 25, creatinine 0.8 chest x-ray reporting moderate pulmonary interstitial and airspace edema significantly worse than yesterday, pulmonary edema. ABGs noted. INR on admission 3.7, down to 2.2 Sepsis protocol, Received IV fluid resuscitation, IV antibiotics, cultures drawn. Developed respiratory failure, requiring intubation during the night. Currently on Sandostatin drip. 3 maroon stools during the night. Received 4 units of FFP and 2 units of packed RBCs to date. Hemoglobin currently 8.5. And had required pressor support with Levophed off since . Maintained on IV fluid resuscitation. Telemetry sinus rhythm. Potassium 3.2, magnesium 1.7. 02/24/2020 chest x-ray reporting persistent bilateral scattered airspace infiltrates, pleural effusion unchanged. Ventilator dependent, on FiO2 of 50 with PEEP increased to 12. Continues on lactulose with ammonia down to 80. T bili decreased to 11.3, LFTs improving. No further maroon stools. Small black stool this morning. Hemoglobin 8.6. Telemetry sinus rhythm to sinus tach. Sandostatin drip discontinued this morning. Last night patient asynchronous with vent, stacking breaths, Nimbex drip initiated. This morning Nimbex discontinued, changed to fentanyl drip. Requiring pressor support, Levophed resumed. Received vitamin K yesterday, INR 2.1. Marginal urine output, IV fluids decreased, and Lasix IV push added to med regime. Tube feedings ordered. Afebrile, WBC 14.7. Sputum culture pending, preliminary blood cultures negative at 48 hours. ABGs noted. 02/25/2020 yesterday Lasix and Aldactone initiated, creatinine mildly worsened up to 1.32. Ammonia increased up to 89, lactulose increased. No further maroon stools, hemoglobin increased to 9.4, platelets increased to 75. T bili trending down, 8.9, LFTs improving. Potassium 3.4. Chest x-ray reporting improving left lower lobe aeration. Right foot evaluated by orthopedic surgery, possible fluid collection, seroma with potential x-ray tomorrow. Tolerating tube feeds with minimal to no residuals, currently at 30 mls per hour with goal of 45. IV steroids added to med regimen with blood sugars increasing. Remains vent dependent with FiO2 at 50/+12 of PEEP. Continues on Levophed, fentanyl, diprovan drips. Afebrile, T-max 99.5, WBC 14.1. 02/26/2020 ABGs unchanged,remains vent dependent, FiO2 50/+12 PEEP. Chest x-ray reporting improvement. Maintained on both Xifaxan & Lactulose, ammonia increasing, beginning to stool. Creatinine trending up 1.4. Hemoglobin decreased to 8.5. INR 1.7 Levophed weaned off this morning. Attempted a sedation holiday for about an hour this morning; patient did not wake up, became agitated, tachycardic, tachypneic with respiratory rate up into the 40s, diprovan/fentanyl drips resumed. Tolerating tube feeds at 40 with goal of 45/minimal to no residual. Orthopedics discussing x-ray and foot possibly tomorrow. Afebrile WBC down to 11. 03/03/2020 patient was trached yesterday, remains vent dependent with FiO2 45%/+5 of PEEP. Chest x-ray suggestive of possible left lower lobe pneumonia, v ersus atelectasis, possible interstitial disease. Scheduled for PEG tube placement today. To date, patient has not tolerated sedation holidays, not following commands, becomes agitated, and becomes asynchronous with the patient. Neurology consulted, EEG completed, results pending. Maintain on D5W with improvement in sodium, Na 146. Currently sedated on Diprovan gtt. telemetry sinus rhythm. Ammonia level LII on lactulose and Xifaxan. Objective - Vital Signs Vital signs: Vital Signs Temp 96.3 F L 03/03/20 08:00 Pulse 71 03/03/20 09:00 Resp 12 03/03/20 09:00 BP 102/54 03/03/20 09:00 Pulse Ox 100 03/03/20 09:00 Intake & Output 03/02/20 03/03/20 03/03/20 18:59 06:59 18:59 Intake Total 2728.343 2712.063 558.46 Output Total 785 840 250 Balance 4148.720 1479.063 308.46 Weight 88.4 kg Intake: IV 1836 1536 384 Dextrose 5% in Water 1, 1500 1500 375 000 ml @ 125 mls/hr IV . Q8H JARED Rx#:[id number] Normal Saline Pressure 36 36 9 Bag Intake, IV Titration 267.343 281.063 174.46 Amount Potassium Chloride 20 meq 100 In Water For Injection 1 100ml.bag @ 50 mls/hr IVPB Q2H JARED Rx#: [id number] Propofol 1,000 mg In 167.343 281.063 174.46 Empty Bag 1 bag @ Titrate IV .Q0M JARED Rx#: [id number] Tube Feeding 225 495 Other 400 400 Output: Urine 775 840 250 Estimated Blood Loss 10 Other: Voiding Method Indwelling Catheter Indwelling Catheter Indwelling Catheter ABP, PAP, CO, CI - Last Documented Arterial Blood Pressure 136/58 - Exam VITAL SIGNS: As above GENERAL: Sitting up in bed, intubated, sedated on diprovan. HEENT: Conjunctivae normal. Positive icterus, jaundice, NG,OG tubes present. NECK: No JVD. No thyroid enlargement. No LNs CARDIOVASCULAR: S1, S2 regular. Systolic murmur RESPIRATION: Coarse Breath sounds diminished in the bases with scattered bilateral rhonchi, no wheezing ABDOMEN: Soft, distended, positive ascites, positive bowel sounds Extremities: Positive upper and lower extremity edema, no clubbing, no cyanosis. Right foot dorsal edema, significant ecchymosis NERVOUS SYSTEM: Unable to assess, sedated and intubated. Skin: Warm and dry, no rash - Labs CBC & Chem 7: 03/03/20 04:50 03/03/20 04:50 Labs: Abnormal Lab Results - Last 24 Hours (Table) 03/02/20 03/02/2020 Range/Units 17:52 17:54 23:39 WBC (3.8-10.6) k/uL RBC (4.30-5.90) m/uL Hgb (13.0-17.5) gm/dL Hct (39.0-53.0) % MCV (80.0-100.0) fL MCH (25.0-35.0) pg MCHC (31.0-37.0) g/dL RDW (11.5-15.5) % Plt Count (150-450) k/uL Neutrophils # (1.3-7.7) k/uL Macrocytosis PT (9.0-12.0) sec INR (<1.2) ABG Total CO2 (19-24) mmol/L ABG O2 Saturation (94-97) % Sodium (137-145) mmol/L Chloride (98-107) mmol/L BUN (9-20) mg/dL Glucose (74-99) mg/dL POC Glucose (mg/dL) 275 H 246 H 208 H (75-99) mg/dL Calcium (8.4-10.2) mg/dL Total Bilirubin (0.2-1.3) mg/dL AST (17-59) U/L ALT (4-49) U/L Ammonia (<30) umol/L Total Protein (6.3-8.2) g/dL Albumin (3.5-5.0) g/dL 03/03/20 03/03/20 03/03/20 Range/Units 04:50 04:50 05:09 WBC 19.2 H (3.8-10.6) k/uL RBC 2.29 L (4.30-5.90) m/uL Hgb 8.1 L (13.0-17.5) gm/dL Hct 26.3 L (39.0-53.0) % MCV 114.7 H (80.0-100.0) fL MCH 35.5 H (25.0-35.0) pg MCHC 30.9 L (31.0-37.0) g/dL RDW 21.9 H (11.5-15.5) % Plt Count 41 L (150-450) k/uL Neutrophils # 17.4 H (1.3-7.7) k/uL Macrocytosis Marked A PT (9.0-12.0) sec INR (<1.2) ABG Total CO2 26 H (19-24) mmol/L ABG O2 Saturation 98.4 H (94-97) % Sodium 146 H (137-145) mmol/L Chloride 117 H (98-107) mmol/L BUN 69 H (9-20) mg/dL Glucose 228 H (74-99) mg/dL POC Glucose (mg/dL) (75-99) mg/dL Calcium 7.9 L (8.4-10.2) mg/dL Total Bilirubin 6.5 H (0.2-1.3) mg/dL AST 129 H (17-59) U/L ALT 73 H (4-49) U/L Ammonia (<30) umol/L Total Protein 5.9 L (6.3-8.2) g/dL Albumin 2.2 L (3.5-5.0) g/dL 03/03/20 03/03/20 03/03/20 Range/Units 05:50 05:50 06:38 WBC (3.8-10.6) k/uL RBC (4.30-5.90) m/uL Hgb (13.0-17.5) gm/dL Hct (39.0-53.0) % MCV (80.0-100.0) fL MCH (25.0-35.0) pg MCHC (31.0-37.0) g/dL RDW (11.5-15.5) % Plt Count (150-450) k/uL Neutrophils # (1.3-7.7) k/uL Macrocytosis PT 15.6 H (9.0-12.0) sec INR 1.6 H (<1.2) ABG Total CO2 (19-24) mmol/L ABG O2 Saturation (94-97) % Sodium (137-145) mmol/L Chloride (98-107) mmol/L BUN (9-20) mg/dL Glucose (74-99) mg/dL POC Glucose (mg/dL) 234 H (75-99) mg/dL Calcium (8.4-10.2) mg/dL Total Bilirubin (0.2-1.3) mg/dL AST (17-59) U/L ALT (4-49) U/L Ammonia 52 H (<30) umol/L Total Protein (6.3-8.2) g/dL Albumin (3.5-5.0) g/dL 03/03/20 Range/Units 11:44 WBC (3.8-10.6) k/uL RBC (4.30-5.90) m/uL Hgb (13.0-17.5) gm/dL Hct (39.0-53.0) % MCV (80.0-100.0) fL MCH (25.0-35.0) pg MCHC (31.0-37.0) g/dL RDW (11.5-15.5) % Plt Count (150-450) k/uL Neutrophils # (1.3-7.7) k/uL Macrocytosis PT (9.0-12.0) sec INR (<1.2) ABG Total CO2 (19-24) mmol/L ABG O2 Saturation (94-97) % Sodium (137-145) mmol/L Chloride (98-107) mmol/L BUN (9-20) mg/dL Glucose (74-99) mg/dL POC Glucose (mg/dL) 175 H (75-99) mg/dL Calcium (8.4-10.2) mg/dL Total Bilirubin (0.2-1.3) mg/dL AST (17-59) U/L ALT (4-49) U/L Ammonia (<30) umol/L Total Protein (6.3-8.2) g/dL Albumin (3.5-5.0) g/dL Assessment and Plan Assessment: Sepsis secondary to aspiration bilateral pneumonia, possibly abdominal source, Acute hypoxic respiratory failure, related to the above, ventilator dependent, tired to wean, status post tracheostomy Septic and hypovolemic shock multifactorial, secondary to bilateral aspiration pneumonia, alcoholic liver disease Possible septic shock status post pressor support Hypotension, secondary to the above, pressor support dependent secondary to sepsis Acute renal failure multifactorial, secondary to all the above, diuretics Acute GI bleed, possible esophageal varices in a patient with significant alcohol dependence, on Sandostatin Acute blood loss anemia, status post multiple transfusions of both FFP, packed RBCs Acute Hepatic encephalopathy Alcoholic liver disease with ascites Hyperammonia Recent posterior lateral rib fractures of 9, 10 and 11 status post fall History of pericarditis Chronic back pain Polysubstance abuse, per record review; patient reports alcohol, marijuana use currently. History of nicotine dependence COPD, emphysema Legally blind Obesity, BMI 30.7 Osteoarthritis Venous insufficiency Anxiety, depression, history of, currently controlled Hyperglycemia, steroid-induced Moderate protein calorie malnutrition Hypernatremia secondary free water deficit. Plan: Continue on current medication regime ,monitoring and symptomatic treatment. Maintain D5W, close monitoring of electrolytes. PEG tube placement scheduled for today. Possible sedation holiday after PEG tube procedure today as per fish inspector. Continue on lactulose, Xifaxan, close monitoring of ammonia level . Prognosis guarded given multiple complex medical issues. The impression and plan of care has been dictated as directed. : I performed a history and examination of this patient, discussed the same with the dictator. I agree with the dictator's note ,documented as a scribe. Any additional findings or plans will be noted.
[2020-03-03] MEDS ORDERED: RIFAXIMIN 550 MG TABLET ONE (16:00)
[2020-03-03] MEDS ORDERED: CHLORHEXIDINE GLUCONATE 15 ML CUP MUCOUS MEM ONE (16:00)
[2020-03-03] MEDS ORDERED: POTASSIUM CHLORIDE 20 MEQ/100 ML BAG IVPB ONE (16:00)
[2020-03-03] MEDS ORDERED: LACTULOSE 20 GM/30 ML CUP ONE ×2 (16:00)
[2020-03-03] MEDS ORDERED: IPRATROPIUM-ALBUTEROL 3 ML NEB ONE ×2 (16:00)
[2020-03-03] MEDS ORDERED: PANTOPRAZOLE 40 MG/10 ML VIAL ONE (16:00)
[2020-03-03] MEDS ORDERED: DEXTROSE 5% IN WATER 1,000 ML BAG ONE (16:00)
[2020-03-03] MEDS ORDERED: INSULIN ASPART (NovoLOG) 100 UNIT/ML VIAL SQ ONE ×2 (16:00)
--- NOTE | 2020-03-03 16:04 | P.PN ---
Subjective Progress Note Date: 03/03/20 Patient is sedated on propofol 40 g. Exam limited. No seizures noted. Continues to be severely encephalopathic. Objective - Vital Signs Vital signs: Vital Signs Temp 97.4 F L 03/03/20 12:00 Pulse 61 03/03/20 14:00 Resp 24 03/03/20 14:00 BP 109/65 03/03/20 14:00 Pulse Ox 98 03/03/20 14:00 Intake & Output 03/02/20 03/03/20 03/03/20 18:59 06:59 18:59 Intake Total 2728.343 2712.063 1688.46 Output Total 228 856 6838 Balance 8498.665 1752.063 -891.54 Weight 88.4 kg Intake: IV 1836 1536 1024 Dextrose 5% in Water 1, 1500 1500 1000 000 ml @ 125 mls/hr IV . Q8H JARED Rx#:[id number] Normal Saline Pressure 36 36 24 Bag Intake, IV Titration 267.343 281.063 174.46 Amount Potassium Chloride 20 meq 100 In Water For Injection 1 100ml.bag @ 50 mls/hr IVPB Q2H JARED Rx#: [id number] Propofol 1,000 mg In 167.343 281.063 174.46 Empty Bag 1 bag @ Titrate IV .Q0M JARED Rx#: [id number] Tube Feeding 225 495 90 Other 400 400 400 Output: Urine 775 840 580 Stool 2000 Estimated Blood Loss 10 Other: Voiding Method Indwelling Catheter Indwelling Catheter Indwelling Catheter ABP, PAP, CO, CI - Last Documented Arterial Blood Pressure 129/64 - Exam Patient sedated. - Labs CBC & Chem 7: 03/03/20 04:50 03/03/20 04:50 Labs: Abnormal Lab Results - Last 24 Hours (Table) 03/02/20 03/02/20 03/02/20 Range/Units 17:52 17:54 23:39 WBC (3.8-10.6) k/uL RBC (4.30-5.90) m/uL Hgb (13.0-17.5) gm/dL Hct (39.0-53.0) % MCV (80.0-100.0) fL MCH (25.0-35.0) pg MCHC (31.0-37.0) g/dL RDW (11.5-15.5) % Plt Count (150-450) k/uL Neutrophils # (1.3-7.7) k/uL Macrocytosis PT (9.0-12.0) sec INR (<1.2) ABG Total CO2 (19-24) mmol/L ABG O2 Saturation (94-97) % Sodium (137-145) mmol/L Chloride (98-107) mmol/L BUN (9-20) mg/dL Glucose (74-99) mg/dL POC Glucose (mg/dL) 275 H 246 H 208 H (75-99) mg/dL Calcium (8.4-10.2) mg/dL Total Bilirubin (0.2-1.3) mg/dL AST (17-59) U/L ALT (4-49) U/L Ammonia (<30) umol/L Total Protein (6.3-8.2) g/dL Albumin (3.5-5.0) g/dL 03/03/20 03/03/20 03/03/20 Range/Units 04:50 04:50 05:09 WBC 19.2 H (3.8-10.6) k/uL RBC 2.29 L (4.30-5.90) m/uL Hgb 8.1 L (13.0-17.5) gm/dL Hct 26.3 L (39.0-53.0) % MCV 114.7 H (80.0-100.0) fL MCH 35.5 H (25.0-35.0) pg MCHC 30.9 L (31.0-37.0) g/dL RDW 21.9 H (11.5-15.5) % Plt Count 41 L (150-450) k/uL Neutrophils # 17.4 H (1.3-7.7) k/uL Macrocytosis Marked A PT (9.0-12.0) sec INR (<1.2) ABG Total CO2 26 H (19-24) mmol/L ABG O2 Saturation 98.4 H (94-97) % Sodium 146 H (137-145) mmol/L Chloride 117 H (98-107) mmol/L BUN 69 H (9-20) mg/dL Glucose 228 H (74-99) mg/dL POC Glucose (mg/dL) (75-99) mg/dL Calcium 7.9 L (8.4-10.2) mg/dL Total Bilirubin 6.5 H (0.2-1.3) mg/dL AST 129 H (17-59) U/L ALT 73 H (4-49) U/L Ammonia (<30) umol/L Total Protein 5.9 L (6.3-8.2) g/dL Albumin 2.2 L (3.5-5.0) g/dL 03/03/20 03/03/20 03/03/20 Range/Units 05:50 05:50 06:38 WBC (3.8-10.6) k/uL RBC (4.30-5.90) m/uL Hgb (13.0-17.5) gm/dL Hct (39.0-53.0) % MCV (80.0-100.0) fL MCH (25.0-35.0) pg MCHC (31.0-37.0) g/dL RDW (11.5-15.5) % Plt Count (150-450) k/uL Neutrophils # (1.3-7.7) k/uL Macrocytosis PT 15.6 H (9.0-12.0) sec INR 1.6 H (<1.2) ABG Total CO2 (19-24) mmol/L ABG O2 Saturation (94-97) % Sodium (137-145) mmol/L Chloride (98-107) mmol/L BUN (9-20) mg/dL Glucose (74-99) mg/dL POC Glucose (mg/dL) 234 H (75-99) mg/dL Calcium (8.4-10.2) mg/dL Total Bilirubin (0.2-1.3) mg/dL AST (17-59) U/L ALT (4-49) U/L Ammonia 52 H (<30) umol/L Total Protein (6.3-8.2) g/dL Albumin (3.5-5.0) g/dL 03/03/20 Range/Units 11:44 WBC (3.8-10.6) k/uL RBC (4.30-5.90) m/uL Hgb (13.0-17.5) gm/dL Hct (39.0-53.0) % MCV (80.0-100.0) fL MCH (25.0-35.0) pg MCHC (31.0-37.0) g/dL RDW (11.5-15.5) % Plt Count (150-450) k/uL Neutrophils # (1.3-7.7) k/uL Macrocytosis PT (9.0-12.0) sec INR (<1.2) ABG Total CO2 (19-24) mmol/L ABG O2 Saturation (94-97) % Sodium (137-145) mmol/L Chloride (98-107) mmol/L BUN (9-20) mg/dL Glucose (74-99) mg/dL POC Glucose (mg/dL) 175 H (75-99) mg/dL Calcium (8.4-10.2) mg/dL Total Bilirubin (0.2-1.3) mg/dL AST (17-59) U/L ALT (4-49) U/L Ammonia (<30) umol/L Total Protein (6.3-8.2) g/dL Albumin (3.5-5.0) g/dL Assessment and Plan Assessment: * Altered mental status, likely related to hepatic and/or toxic metabolic encephalopathy. * Alcoholic liver disease with hepatic cirrhosis and ascites, anasarca. * Status post acute kidney injury, septic shock. * Ventilator-dependent respiratory failure, status post tracheostomy. Plan: * EEG revealed moderate to severe background slowing, consistent with toxic metabolic encephalopathy. No evidence of seizures. * Patient critically sick, with multiple medical conditions and metabolic dysfunction. * Your medical management. * We will follow.
[2020-03-03 17:57] LABS: Glucose,Whole Blood 225 mg/dL (75-99)
[2020-03-03 23:57] LABS: Glucose,Whole Blood 241 mg/dL (75-99)
[2020-03-04] MEDS ORDERED: INSULIN ASPART (NovoLOG) 100 UNIT/ML VIAL SQ ONE (00:40)
[2020-03-04] MEDS ORDERED: IPRATROPIUM-ALBUTEROL 3 ML NEB ONE ×2 (00:40)
[2020-03-04] MEDS: IPRATROPIUM-ALBUTEROL 3 ML NEB INHALATION SCH ×5 (04:32→19:04)
[2020-03-04 05:07] LABS: Anisocytosis Moderate; Basophils % (A) 0 %; Eosinophils # (A) 0.1 k/uL (0-0.7); Eosinophils % (A) 1 %; HCT 26.6 % (39.0-53.0); HGB 8.8 gm/dL (13.0-17.5); Hypochromasia Slight; Lymphocytes % (A) 8 %; MCH 37.1 pg (25.0-35.0); MCV 112.4 fL (80.0-100.0); Macrocytosis Marked; Mean Platelet Volume 15.6; Monocytes # (A) 0.6 k/uL (0-1.0); Monocytes % (A) 2 %; Neutrophils # (A) 21.9 k/uL (1.3-7.7); Neutrophils % (A) 88 %; RBC 2.36 m/uL (4.30-5.90); WBC 24.8 k/uL (3.8-10.6)
[2020-03-04] MEDS: PROPOFOL 1,000 MG in EMPTY BAG 1 BAG IV SCH (05:20)
[2020-03-04] MEDS: DEXTROSE 5% IN WATER 1,000 ML IV SCH (05:25)
[2020-03-04 05:32] LABS: Platelet Count 35 k/uL (150-450); Polychromasia Present; Stomatocytes Present
[2020-03-04] MEDS: INSULIN ASPART (NovoLOG) 100 UNIT/ML VIAL SQ SCH ×5 (05:32→23:44)
[2020-03-04 05:34] LABS: Glucose,Whole Blood 143 mg/dL (75-99)
[2020-03-04 05:48] LABS: ABG Base Excess -0.7 mmol/L; ABG HCO3 24 mmol/L (21-25); ABG Oxygen Saturation 97.5 % (94-97); ABG PCO2 35 mmHg (35-45); ABG PH 7.44 (7.35-7.45); ABG PO2 91 mmHg (83-108); ABG TCO2 25 mmol/L (19-24); Allen Test Performed? Yes
[2020-03-04 06:05] LABS: African American GFR (CKD) >90 (>60 ml/min/1.73 sqM); Anion Gap 4 mmol/L; Blood Urea Nitrogen 55 mg/dL (9-20); Calcium 8.1 mg/dL (8.4-10.2); Carbon Dioxide 23 mmol/L (22-30); Chloride 111 mmol/L (98-107); Glucose 131 mg/dL (74-99); Non-African American GFR(CKD) >90 (>60 ml/min/1.73 sqM); Potassium 2.8 mmol/L (3.5-5.1); Sodium 138 mmol/L (137-145)
[2020-03-04] MEDS: POTASSIUM BICARBONATE/CIT AC 20 MEQ TABLET.EFF NG-TUBE SCH (06:27)
[2020-03-04] MEDS: POTASSIUM CHLORIDE 20 MEQ in WATER FOR INJECTION 1 100ML.BAG IVPB SCH ×5 (06:41→17:09)
--- NOTE | 2020-03-04 07:20 | XR ---
EXAMINATION TYPE: XR chest 1V portable DATE OF EXAM: 03/04/2020 Comparison: 03/03/2020 Clinical History: 54-year-old male ICU management Findings: Tracheostomy cannula. NG tube courses below the diaphragm. Heart upper limits of normal in size. Incr eased airspace disease left lower lung obscuring the left hemidiaphragm. Impression: Significant interval increase in left basilar airspace disease. Correlate for infectious or aspiratio n pneumonitis.
--- NOTE | 2020-03-04 08:16 | P.PN ---
Subjective Progress Note Date: 03/03/20 Principal diagnosis: Alcoholic hepatitis, alcoholic cirrhosis of the liver with ascites, hepatic encephalopathy, elevated liver enzymes Patient is seen in the intensive care unit where he is currently status post tracheostomy. Receiving tube feeds. Still requiring mechanical ventilation. Objective - Vital Signs Vital signs: Vital Signs Temp 97.4 F L 03/03/20 12:00 Pulse 61 03/03/20 14:00 Resp 24 03/03/20 14:00 BP 109/65 03/03/20 14:00 Pulse Ox 98 03/03/20 14:00 Intake & Output 03/02/20 03/03/20 03/03/20 18:59 06:59 18:59 Intake Total 2728.343 2712.063 1688.46 Output Total 134 167 3973 Balance 3129.086 4515.063 -891.54 Weight 88.4 kg Intake: IV 1836 1536 1024 Dextrose 5% in Water 1, 1500 1500 1000 000 ml @ 125 mls/hr IV . Q8H JARED Rx#:[id number] Normal Saline Pressure 36 36 24 Bag Intake, IV Titration 267.343 281.063 174.46 Amount Potassium Chloride 20 meq 100 In Water For Injection 1 100ml.bag @ 50 mls/hr IVPB Q2H JARED Rx#: [id number] Propofol 1,000 mg In 167.343 281.063 174.46 Empty Bag 1 bag @ Titrate IV .Q0M JARED Rx#: [id number] Tube Feeding 225 495 90 Other 400 400 400 Output: Urine 775 840 580 Stool 2000 Estimated Blood Loss 10 Other: Voiding Method Indwelling Catheter Indwelling Catheter Indwelling Catheter ABP, PAP, CO, CI - Last Documented Arterial Blood Pressure 129/64 - Exam On physical examination, patient appears comfortable in no apparent distress. HEAD: Normocephalic, atraumatic. EYES: Scleral icterus. No conjunctival injection. MOUTH: No lesions, tongue midline, endotracheal tube in place. NECK: Tracheostomy in place. CHEST: Coarse respiratory noises in all lung soni on mechanical ventilation. ABDOMEN: Soft, obese. Bowel sounds are positive. No organomegaly. No guarding or rigidity. EXTREMITIES: Bilateral pedal edema. SKIN: No rashes, jaundice. NEUROLOGIC: Intubated and sedated. - Labs CBC & Chem 7: 03/04/20 04:50 03/04/20 04:50 Labs: Abnormal Lab Results - Last 24 Hours (Table) 03/02/20 03/02/20 03/02/20 Range/Units 17:52 17:54 23:39 WBC (3.8-10.6) k/uL RBC (4.30-5.90) m/uL Hgb (13.0-17.5) gm/dL Hct (39.0-53.0) % MCV (80.0-100.0) fL MCH (25.0-35.0) pg MCHC (31.0-37.0) g/dL RDW (11.5-15.5) % Plt Count (150-450) k/uL Neutrophils # (1.3-7.7) k/uL Macrocytosis PT (9.0-12.0) sec INR (<1.2) ABG Total CO2 (19-24) mmol/L ABG O2 Saturation (94-97) % Sodium (137-145) mmol/L Chloride (98-107) mmol/L BUN (9-20) mg/dL Glucose (74-99) mg/dL POC Glucose (mg/dL) 275 H 246 H 208 H (75-99) mg/dL Calcium (8.4-10.2) mg/dL Total Bilirubin (0.2-1.3) mg/dL AST (17-59) U/L ALT (4-49) U/L Ammonia (<30) umol/L Total Protein (6.3-8.2) g/dL Albumin (3.5-5.0) g/dL 03/03/20 03/03/20 03/03/20 Range/Units 04:50 04:50 05:09 WBC 19.2 H (3.8-10.6) k/uL RBC 2.29 L (4.30-5.90) m/uL Hgb 8.1 L (13.0-17.5) gm/dL Hct 26.3 L (39.0-53.0) % MCV 114.7 H (80.0-100.0) fL MCH 35.5 H (25.0-35.0) pg MCHC 30.9 L (31.0-37.0) g/dL RDW 21.9 H (11.5-15.5) % Plt Count 41 L (150-450) k/uL Neutrophils # 17.4 H (1.3-7.7) k/uL Macrocytosis Marked A PT (9.0-12.0) sec INR (<1.2) ABG Total CO2 26 H (19-24) mmol/L ABG O2 Saturation 98.4 H (94-97) % Sodium 146 H (137-145) mmol/L Chloride 117 H (98-107) mmol/L BUN 69 H (9-20) mg/dL Glucose 228 H (74-99) mg/dL POC Glucose (mg/dL) (75-99) mg/dL Calcium 7.9 L (8.4-10.2) mg/dL Total Bilirubin 6.5 H (0.2-1.3) mg/dL AST 129 H (17-59) U/L ALT 73 H (4-49) U/L Ammonia (<30) umol/L Total Protein 5.9 L (6.3-8.2) g/dL Albumin 2.2 L (3.5-5.0) g/dL 03/03/20 03/03/20 03/03/20 Range/Units 05:50 05:50 06:38 WBC (3.8-10.6) k/uL RBC (4.30-5.90) m/uL Hgb (13.0-17.5) gm/dL Hct (39.0-53.0) % MCV (80.0-100.0) fL MCH (25.0-35.0) pg MCHC (31.0-37.0) g/dL RDW (11.5-15.5) % Plt Count (150-450) k/uL Neutrophils # (1.3-7.7) k/uL Macrocytosis PT 15.6 H (9.0-12.0) sec INR 1.6 H (<1.2) ABG Total CO2 (19-24) mmol/L ABG O2 Saturation (94-97) % Sodium (137-145) mmol/L Chloride (98-107) mmol/L BUN (9-20) mg/dL Glucose (74-99) mg/dL POC Glucose (mg/dL) 234 H (75-99) mg/dL Calcium (8.4-10.2) mg/dL Total Bilirubin (0.2-1.3) mg/dL AST (17-59) U/L ALT (4-49) U/L Ammonia 52 H (<30) umol/L Total Protein (6.3-8.2) g/dL Albumin (3.5-5.0) g/dL 03/03/20 Range/Units 11:44 WBC (3.8-10.6) k/uL RBC (4.30-5.90) m/uL Hgb (13.0-17.5) gm/dL Hct (39.0-53.0) % MCV (80.0-100.0) fL MCH (25.0-35.0) pg MCHC (31.0-37.0) g/dL RDW (11.5-15.5) % Plt Count (150-450) k/uL Neutrophils # (1.3-7.7) k/uL Macrocytosis PT (9.0-12.0) sec INR (<1.2) ABG Total CO2 (19-24) mmol/L ABG O2 Saturation (94-97) % Sodium (137-145) mmol/L Chloride (98-107) mmol/L BUN (9-20) mg/dL Glucose (74-99) mg/dL POC Glucose (mg/dL) 175 H (75-99) mg/dL Calcium (8.4-10.2) mg/dL Total Bilirubin (0.2-1.3) mg/dL AST (17-59) U/L ALT (4-49) U/L Ammonia (<30) umol/L Total Protein (6.3-8.2) g/dL Albumin (3.5-5.0) g/dL Assessment and Plan (1) Acute alcoholic hepatitis Narrative/Plan: 54-year-old male with known history of alcohol abuse presenting to the hospital with altered mental status. Likely multifactorial given suspected underlying decompensated cirrhosis, acute alcoholic hepatitis and concern for aspiration pneumonia and sepsis. Currently receiving treatment in the ICU, he remains on broad-spectrum antibiotic therapy and mechanically ventilated. Patient is status post tracheostomy placement. Plan is for PEG tube placement with the surgical service. Current Visit: Yes Status: Acute Code(s): K70.10 - ALCOHOLIC HEPATITIS WITHOUT ASCITES SNOMED Code(s): 6332683 (2) Liver cirrhosis Current Visit: Yes Status: Acute Code(s): K74.60 - UNSPECIFIED CIRRHOSIS OF LIVER SNOMED Code(s): 18041022 (3) Ascites Current Visit: Yes Status: Acute Code(s): R18.8 - OTHER ASCITES SNOMED Code(s): 493044898 (4) Hepatic encephalopathy Current Visit: Yes Status: Acute Code(s): K72.90 - HEPATIC FAILURE, UNSPECIFIED WITHOUT COMA SNOMED Code(s): 46087284 (5) Bicytopenia Narrative/Plan: Patient anemic and thrombocytopenic likely related to chronic alcohol use. Stool testing was positive for blood but patient has no signs or symptoms of GI bleeding with normal brown stool noted and fecal management system. Hemoglobin has remained stable. Current Visit: Yes Status: Acute Code(s): D75.89 - OTHER SPECIFIED DISEASES OF BLOOD AND BLOOD-FORMING ORGANS SNOMED Code(s): 47958718 Plan: Supportive care Nothing by mouth, okay for tube feeds as tolerated, plan is for PEG tube placement Continue management per custom frame assembler service, patient currently intubated and sedated Continue broad-spectrum antibiotic therapy Continue lactulose 4 times a day Xifaxan twice daily Neurology service following for altered mentation Status post tracheostomy Alcohol abstinence Thank you for allowing us to participate in the care of the patient we will continue to follow
[2020-03-04] MEDS: PANTOPRAZOLE 40 MG/10 ML VIAL IVP SCH ×2 (08:32→19:58)
[2020-03-04] MEDS: CHLORHEXIDINE GLUCONATE 15 ML CUP MUCOUS MEM SCH ×2 (08:32→19:58)
[2020-03-04] MEDS: LACTULOSE 20 GM/30 ML CUP PO SCH ×3 (08:34→19:58)
[2020-03-04] MEDS: RIFAXIMIN 550 MG TABLET PO SCH ×2 (08:34→19:58)
[2020-03-04 08:35] LABS: Total Bilirubin 6.6 mg/dL (0.2-1.3)
[2020-03-04] MEDS ORDERED: DESMOPRESSIN ACETATE 20 MCG in SODIUM CHLORIDE 0.9% 50 ML IVPB ONE (09:00)
[2020-03-04] MEDS ORDERED: MORPHINE SULFATE 2 MG/ML SYRINGE IVP PRN (09:02)
--- NOTE | 2020-03-04 09:15 | P.PN ---
Subjective Progress Note Date: 03/04/20 Principal diagnosis: Acute liver failure, acute hypoxic respiratory failure This is a 54-year-old white male, history of alcohol abuse, patient was brought into the ER with change in mental status according to EMS. Patient could not give any history, he was a very poor historian upon arrival to the ER. Patient is supposedly a daily drinker, however from my review of the chart, I saw this patient back on 11/11/19, patient presented back then with multiple posterior lateral rib fractures on the right. Apparently he fell in his bathroom, and landed on the side of the top sustaining multiple rib fractures. Patient sustained rib fractures of 910 and 11 ribs. Patient is also known to have history of severe emphysema/COPD. He is legally blind. He has history of pericarditis, anxiety, and history of degenerative joint disease. Patient was discharged home on 11/12/19. Drug screen in the ER was positive for tricyclic antidepressants and positive for benzodiazepines. Rest of the drug screen was basically negative. ABG in the ER showed a pO2 of 63 pCO2 of 29 pH of 7.49. Patient was also noted to have elevated INR of 3.7. Low hemoglobin of 7.0 although his baseline hemoglobin from 2 months ago was 15.1. Ammonia level was 91. Total bilirubin was 14.9, and his liver enzymes were a bit elevated. Normal amylase and lipase were noted. Gallbladder ultrasound showed abdominal ascites. Chest x-ray showed bilateral diffuse infiltrates. Patient was presumed septic upon presentation, received fluid boluses of 2500 ML's. Patient was found to have hepatic encephalopathy liver failure, bilateral pneumonia, GI hemorrhage and sepsis. Early this morning, patient was intubated, placed on mechanical ventilation, and he was aware of the patient since admission. Presently the patient is on assist control rate of 28 tidal volume is 500 FiO2 is 100% PEEP of 5. ABG showed a pO2 of 170 pCO2 of 31 pH of 7.46. Hence I cut down the FiO2 to 50%, increased the PEEP to 8, cut down the tidal volume to 450, and decrease the respiratory rate to 26. Patient is on Sandostatin for his GI bleeding, and he is yet to be seen by gastroenterology on consultation is also on Protonix. He is on lactulose for his elevated ammonia level. And he is empirically on Zosyn for presumptive aspiration pneumonia. Echocardiogram showed evidence of good LV function. And mild valvular heart disease. BNP level was borderline elevated at 910 Patient was reevaluated today on 02/24/20, remains on mechanical ventilation. He is presently on assist control rate of 26 tidal volume is 450 FiO2 of 60% and PEEP of 8. However I increased his PEEP to 12 and cut down his FiO2 to 50%. At night the patient developed worsening agitation, and Stacking his breaths, was not synchronous with mechanical ventilation, hence had to place the patient on Nimbex. Today I plan to discontinue Nimbex and place him on fentanyl 25 g per hour. Patient will be started on tube feeding, and I cut down his IV fluid to 50 MLS per hour. Remains on propofol at 60 mcg/kg/m, Nimbex which will be disco ntinued, but creatinine which was discontinued this morning, and norepinephrine at 0.06 mcg/kg/m. Enteral feeding to be started today by crm marketing specialist. Patient remains on antibiotics, remains on lactulose for his elevated ammonia level which is 80 today. And he remains on Protonix. Chest x-ray showed more consolidation noted bilaterally in both lungs more so in the left lung. Bilateraldisease is noted consistent with aspiration pneumonia. Sputum cultures and blood cultures so far remain on diagnostic. ABG today showed a pO2 of 67 pCO2 of 39 pH of 7.33. WBC count is 14.7 hemoglobin is 8.6 platelets are 66,000 and INR is 2.1. Electrolytes are basically normal renal profile showed beer of 25 creatinine 0.94. Patient was reevaluated today on 02/25/20, remains in the intensive care unit, remains on mechanical ventilation. His ventilator settings are assist control rate of 26, tidal volume is 450 FiO2 is 50% and PEEP is at 12. ABG showed a pO2 of 65 pCO2 of 37 pH of 7.36, hence no change was made in the ventilator settings. Patient remains on norepinephrine at 0.09 mcg/kg/m, propofol at 45 mcg/kg/m, fentanyl at 0.5 mcg/kg/h. Remains on enteral feeding at 30 MLS per hour goal is 45. Remains on Zosyn for empiric coverage of aspiration pneumonia. Remains on lactulose and the dose was increased to 45 ML 4 times a day, and added Xifaxan at 550 mg twice a day. His lactulose does not seem to be inducing enough diarrhea did get his ammonia level down. Continues to have significantly elevated ammonia level in spite of lactulose for the last 2 days. Patient continues to have ascites. And no plans for paracentesis as recommended by gastroenterology at this point. Chest x-ray showed very minimal improvement if any in his bilateral infiltrates. The bilateral infiltrates are suggestive of aspiration pneumonia. Obviously the patient is known to have history of alcoholism, and he presented with alcoholic liver hepatitis, and hepatic encephalopathy. Labs today were all reviewed WBC is 14.1 hemoglobin is 9.4 platelets are 75,000 INR is 1.7. Electrolytes are unremarkable except for low potassium of 3.4 BUN of 27 creatinine 1.32. Liver enzymes are borderline elevat ed. Total bilirubin is improving down to 8.9 today. Albumin is 2.3 Patient was reevaluated today on 02/26/20, remains in the ICU, intubated, mechanically ventilated. Patient is on assist control rate of 26 tidal volume 450 FiO2 50% and PEEP is 12. Chest x-ray is showing definite improvement, zeng rosio his ABG is basically about the same with a pO2 of 68 pCO2 of 38 and pH of 7.38. His ammonia level is on the rise in spite of the fact that the patient is on relatively high dose of lactulose and he is also on Xifaxan. Patient remains on propofol at 40 mcg/kg/m, fentanyl at 0.5 mcg/kg/h, he is on very small dose of norepinephrine at 0.01 mcg/kg/m, IV fluid is at KVO, and he is also on Zosyn for presumptive aspiration pneumonia. Remains on diuretics in the form of Lasix, Aldactone. His Lasix was increased to 40 mg 3 times a day, and he is on Aldactone via nasogastric tube. Patient was taken off sedation today, however he became extremely agitated, tachypneic, tachycardic, hence we had to place him back on sedation and continued assist control mode of mechanical ventilation. Chest x-ray again showed improvement. WBC count today is 11 hemoglobin is 8.5 his INR is 1.7 basic metabolic profile is improving, creatinine however is up to 1.40, and the patient obviously developed acute kidney injury. This could very well be related to his sepsis, and related to his hypotension requiring norepinephrine. Cultures including blood cultures and sputum cultures have been negative. Patient was reevaluated today in the ICU, remains intubated and mechanically ventilated. His ventilator settings are assist control rate of 26 tidal volume is 450 FiO2 is 50% and PEEP is at 12 chest x-ray showed dramatic improvement. His ABG is significantly improved hence I recommended cutting down the PEEP to 8. His ammonia level is significantly improved today, it is down to 69. Sodium seems to be creeping up a little bit, and I recommended free water flushes via orogastric tube. Patient is on propofol at 50 mcg/kg/m, his tube feeding is presently on hold because of increased residual. Patient was given a sedation holiday, however when he went off propofol, the patient became extremely agitated, restless, biting on the endotracheal tube, tachycardic, tachypneic, and was extremely agitated. Hence I recommended placing him back on propofol, and not quite ready for weaning. Labs were all reviewed today. And addressed accordingly including his elevated sodium and elevated BUN of 49 creatinine 1.46. Chest x-ray showed significant improvement in his bilateral infiltrates/aspiration pneumonia. Patient was reevaluated today on 02/28/20, remains in the ICU, intubated and mechanically ventilated. His ventilator settings are assist control rate of 26 FiO2 50% tidal volume of 450 PEEP is at 8 and today I cut down his FiO2 to 45% and kept him on a PEEP of 8. ABG this morning showed a pO2 of 102 pCO2 of 35 pH of 7.45. Patient has significantly elevated sodium today of 150 potassium is low at 2.8 ammonia level remains high at 73. Patient is not requiring any pressors, he is on propofol at 34 mcg/kg/m. Patient is on enteral feeding. I do plan to wean the patient off propofol sometime today, and assess mental status again. This was attempted yesterday, but the patient didn't do well, I have also recommended free water flushes to correct his hyper natremia. The patient is seen today 02/29/2020 in follow-up in the intensive care unit. He remains intubated on mechanical vent. Current settings are assist control at a rate of 26, FiO2 45% tidal volume 450 and a PEEP of 8. Morning blood gases reveal a P O2 of 93, pCO2 of 35 and a pH of 7.47. Chest x-ray reveals stable bilateral atelectasis/infiltrate. He is sedated on propofol at 50 mcg/kg/m. Antibiotics in the form of Zosyn. He remains on IV diuretics. He is tolerating his tube feedings. He remains hypernatremic despite free water. IVs changed to D5W at 75 ML's per hour. Sodium 156. Potassium 2.8. Creatinine 1.32. Glucose 157. White count 10.8. Hemoglobin 8.4. Platelet count 58,000. On 03/01/2020 patient seen in follow-up in the intensive care unit, he remains sedated, intubated on mechanical ventilator, current vent settings are assist control mode of ventilation with a rate of 12, tidal volume is 450, FiO2 45% and PEEP of 5, this morning blood gases show pO2 of 93, pCO2 38, pH of 7.45. Current IV fluids include D5 W5 to 75 ML per hour, and Diprivan at 45 mics per kilo per minute, no vasoactive drips, tube feedings of vital high protein at a rate of 45 with a goal of 45. Today's chest x-ray has been reviewed showing stable appearance of the bibasilar opacities. T-max in the last 24 hours was 99.7F, afebrile this morning, 1 sputum cultures have shown no growth, today's blood work has been reviewed, limits according to 14.0, hemoglobin of 8.0, platelet count is 62, sodium is 159 is on D5W at 75 ML per hour, in addition to free water flushes with 200 mL every 4 hours, patient continues on lactulose and rifaximin, and is having lactulose induced diarrhea and he had 2.4 L in liquid stool output in the last 24 hours. Patient apparently has failed spontaneous breathing trials for last 4 days. We will proceed with a spontaneous awakening and spontaneous breathing trials again today, we will speak to the family about placement of tracheostomy and PEG tube insertion. On 03/02/2020 patient is seen in follow-up in intensive care unit, he remains sedated, intubated on mechanical ventilator, current vent settings are assist- control with a rate of 12, tidal vital 450, FiO2 is 45%, and PEEP of 8, this morning blood gases show pO2 of 113, pCO2 is 34, and pH of 7.47, PEEP has been dropped to 5. IV fluids include D5 W at 125 ML per hour, Diprivan is a 40 mics per kilo per minute, no vasoactive drips, tube feedings are on hold patient was on vital high protein at 45 with a goal of 45 and 400 ML every 4 hours water flushes. Patient was given a sedation holiday yesterday, he never really fully awakened, he was placed on pressure-support of 8, he tolerated it for 3 hours, however there he became predicted, and was placed back on assist control mode of ventilation, yesterday we spoke to the patient's who was a continue with full code CODE STATUS and would like to proceed with tracheostomy and PEG tube placement. Today's chest x-ray has been reviewed and is relatively stable, accounting for technical difficulties, bibasilar opacities and atelectases and pleural effusions. We discontinued patient's Lasix and Aldactone yesterday in view of his hypernatremia, patient continues to have large liquid stool output, 4.7 L in the last 24 hours, continues on lactulose and rifaximin. Yesterday's ammonia level was 44, today it is 47. Today's blood work has been reviewed On 03/03/2020 patient seen in follow-up in the intensive care unit, he remains sedated, on mechanical ventilator, yesterday he had a tracheostomy inserted, this morning he is on assist-control mode of ventilation with a rate of 12, tidal volume is 450, FiO2 is 45%, and PEEP of 5. This morning blood gases show pO2 of 14, pCO2 38, and pH of 7.42. Patient is on IV fluids with D5W at a rate of 125 ML per hour, Diprivan and is at 40 mics per kilo per minute. No vasoactive drips. His feedings are on hold for PEG tube insertion today. Patient is afebrile. Hemodynamically he has been stable, no sedation holiday was given yesterday, the day before patient's addition was held, however patient never fully awakened. Today's labs have been reviewed, showing white blood cell count 19.2, hemoglobin of 8.1, platelet count is 41, INR today is 1.6, sodium is 146, potassium 3.5, chloride is 117, CO2 is 24, BUN 69, creatinine is 0.94. Ammonia level today 62, patient remains on lactulose 40 mg every 8 hours, in addition to Xifaxan. Today's chest x-ray has been reviewed showing left lower lobe pneumonia versus subsegmental atelectasis with a component of interstitial edema. Since diuretics remain on hold regarding hyper nature anemia. Hypernatremia is improving, and his sodium level is 146 today. Blood and sputum culture remains negative. Patient has completed a course of Levaquin. On 03/04/2020 patient seen in follow-up in the intensive care unit. Patient re ann sedated, on mechanical ventilator, currently on assist control mode of ventilation with a rate of 12, tidal volume is 450, FiO2 40%, and PEEP of 5. This morning blood gases showed pO2 of 91, pCO2 35, and pH of 7.43. IV D5W at a rate of 125, and improving and is currently at 25 mics per kilo per minute, yesterday he was given sedation holiday, he started opening his eyes, but not following command, later on apparently he became slightly tachypneic, and was placed back on sedation. Hemodynamically he remains stable, no vasoactive drips this morning, today's labs have been reviewed, showing limits oh, 24.8, hemoglobin is 8.8, sodium is 138, potassium is 2.8, chloride is 111, CO2 is 23, BUN is 55 and creatinine 0.73. Abdomen is soft, liver enzymes show total bilirubin 6.6, AST is 157, ALT is 100, and ammonia level is 42, patient remains on a combination of lactulose and rifaximin. Lung sounds are clear, today's chest x-ray has been reviewed showing significant interval increase in the left basilar airspace disease with consideration for infectious or aspiration pneumonitis. No fever or chills. FiO2 is currently at 40%. Currently not on any antibiotics Objective - Vital Signs Vital signs: Vital Signs Temp 97.8 F 03/04/20 08:00 Pulse 84 03/04/20 08:00 Resp 21 03/04/20 08:00 BP 94/50 03/04/20 08:00 Pulse Ox 100 03/04/20 08:00 Intake & Output 03/03/20 03/04/20 03/04/20 18:59 06:59 18:59 Intake Total 2782.228 2832.232 263.512 Output Total 920 2350 750 Balance 1862.228 482.232 -486.488 Weight 92 kg Intake: IV 1536 1664 128 Dextrose 5% in Water 1, 1500 1625 125 000 ml @ 125 mls/hr IV . Q8H JARED Rx#:[id number] Normal Saline Pressure 36 39 3 Bag Intake, IV Titration 176.228 98.232 135.512 Amount Potassium Chloride 20 meq 100 In Water For Injection 1 100ml.bag @ 50 mls/hr IVPB Q2H JARED Rx#: [id number] Propofol 1,000 mg In 176.228 98.232 35.512 Empty Bag 1 bag @ Titrate IV .Q0M JARED Rx#: [id number] Tube Feeding 270 270 Other 800 800 Output: Urine 920 950 50 Stool 1400 700 Other: Voiding Method Indwelling Catheter Indwelling Catheter Indwelling Catheter ABP, PAP, CO, CI - Last Documented Arterial Blood Pressure 102/43 - Exam GENERAL EXAM: Sedated, 54-year-old white male, trached to the mechanical ventilator, with settings of assist control rate of 12, tidal volume is 450, FiO2 40% and PEEP of 5 comfortable in no apparent distress. HEAD: Normocephalic/atraumatic. EYES: Normal reaction of pupils, equal size. Conjunctiva pink, sclera white. NOSE: Clear with pink turbinates. THROAT: No erythema or exudates. NECK: No masses, no JVD, no thyroid enlargement, no adenopathy. Midline tracheostomy to to the ventilator with assist control mode of ventilation CHEST: No chest wall deformity. Symmetrical expansion. LUNGS: Equal air entry with no crackles, wheeze, rhonchi or dullness. CVS: Regular rate and rhythm, normal S1 and S2, no gallops, no murmurs, no rubs ABDOMEN: Soft, nontender. No hepatosplenomegaly, normal bowel sounds, no guarding or rigidity. EXTREMITIES: No clubbing, no edema, no cyanosis, 2+ pulses and upper and lower extremities. MUSCULOSKELETAL: Muscle strength and tone normal. SPINE: No scoliosis or deformity SKIN: No rashes CENTRAL NERVOUS SYSTEM: Sedated and intubated. No focal deficits, tone is normal in all 4 extremities. - Labs CBC & Chem 7: 03/04/20 04:50 03/04/20 04:50 Labs: Abnormal Lab Results - Last 24 Hours (Table) 02/22/20 02/22/20 02/22/20 Range/Units 14:10 17:24 20:03 WBC (3.8-10.6) k/uL RBC (4.30-5.90) m/uL Hgb (13.0-17.5) gm/dL Hct (39.0-53.0) % MCV (80.0-100.0) fL MCH (25.0-35.0) pg MCHC (31.0-37.0) g/dL RDW (11.5-15.5) % Plt Count (150-450) k/uL Neutrophils # (1.3-7.7) k/uL Macrocytosis ABG Total CO2 (19-24) mmol/L ABG O2 Saturation (94-97) % Potassium (3.5-5.1) mmol/L Chloride (98-107) mmol/L Carbon Dioxide (22-30) mmol/L BUN (9-20) mg/dL Glucose (74-99) mg/dL POC Glucose (mg/dL) (75-99) mg/dL Plasma Lactic Acid Praveen 3.1 H* 2.2 H* (0.7-2.0) mmol/L Calcium (8.4-10.2) mg/dL Total Bilirubin (0.2-1.3) mg/dL AST (17-59) U/L ALT (4-49) U/L Ammonia (<30) umol/L Crossmatch See Detail 02/22/20 02/23/20 03/02/20 Range/Units 22:50 17:30 04:30 WBC 16.2 H (3.8-10.6) k/uL RBC 2.22 L (4.30-5.90) m/uL Hgb 8.1 L (13.0-17.5) gm/dL Hct 25.3 L (39.0-53.0) % MCV 114.0 H (80.0-100.0) fL MCH 36.7 H (25.0-35.0) pg MCHC (31.0-37.0) g/dL RDW 22.7 H (11.5-15.5) % Plt Count 49 L (150-450) k/uL Neutrophils # 14.5 H (1.3-7.7) k/uL Macrocytosis Marked A ABG Total CO2 (19-24) mmol/L ABG O2 Saturation (94-97) % Potassium 3.2 L (3.5-5.1) mmol/L Chloride 113 H (98-107) mmol/L Carbon Dioxide 20 L (22-30) mmol/L BUN 25 H (9-20) mg/dL Glucose 100 H (74-99) mg/dL POC Glucose (mg/dL) (75-99) mg/dL Plasma Lactic Acid Praveen 2.1 H* (0.7-2.0) mmol/L Calcium 7.1 L (8.4-10.2) mg/dL Total Bilirubin (0.2-1.3) mg/dL AST (17-59) U/L ALT (4-49) U/L Ammonia (<30) umol/L Crossmatch 03/03/20 03/03/20 03/03/20 Range/Units 04:50 11:44 17:56 WBC 19.2 H (3.8-10.6) k/uL RBC 2.29 L (4.30-5.90) m/uL Hgb 8.1 L (13.0-17.5) gm/dL Hct 26.3 L (39.0-53.0) % MCV 114.7 H (80.0-100.0) fL MCH 35.5 H (25.0-35.0) pg MCHC 30.9 L (31.0-37.0) g/dL RDW 21.9 H (11.5-15.5) % Plt Count 41 L (150-450) k/uL Neutrophils # 17.4 H (1.3-7.7) k/uL Macrocytosis Marked A ABG Total CO2 (19-24) mmol/L ABG O2 Saturation (94-97) % Potassium (3.5-5.1) mmol/L Chloride (98-107) mmol/L Carbon Dioxide (22-30) mmol/L BUN (9-20) mg/dL Glucose (74-99) mg/dL POC Glucose (mg/dL) 175 H 225 H (75-99) mg/dL Plasma Lactic Acid Praveen (0.7-2.0) mmol/L Calcium (8.4-10.2) mg/dL Total Bilirubin (0.2-1.3) mg/dL AST (17-59) U/L ALT (4-49) U/L Ammonia (<30) umol/L Crossmatch 03/03/20 03/04/20 03/04/20 Range/Units 23:55 04:50 04:50 WBC 24.8 H (3.8-10.6) k/uL RBC 2.36 L (4.30-5.90) m/uL Hgb 8.8 L (13.0-17.5) gm/dL Hct 26.6 L (39.0-53.0) % MCV 112.4 H (80.0-100.0) fL MCH 37.1 H (25.0-35.0) pg MCHC (31.0-37.0) g/dL RDW 21.0 H (11.5-15.5) % Plt Count 35 L (150-450) k/uL Neutrophils # 21.9 H (1.3-7.7) k/uL Macrocytosis Marked A ABG Total CO2 (19-24) mmol/L ABG O2 Saturation (94-97) % Potassium 2.8 L (3.5-5.1) mmol/L Chloride 111 H (98-107) mmol/L Carbon Dioxide (22-30) mmol/L BUN 55 H (9-20) mg/dL Glucose 131 H (74-99) mg/dL POC Glucose (mg/dL) 241 H (75-99) mg/dL Plasma Lactic Acid Praveen (0.7-2.0) mmol/L Calcium 8.1 L (8.4-10.2) mg/dL Total Bilirubin (0.2-1.3) mg/dL AST (17-59) U/L ALT (4-49) U/L Ammonia (<30) umol/L Crossmatch 03/04/20 03/04/20 03/04/20 Range/Units 04:50 05:28 05:32 WBC (3.8-10.6) k/uL RBC (4.30-5.90) m/uL Hgb (13.0-17.5) gm/dL Hct (39.0-53.0) % MCV (80.0-100.0) fL MCH (25.0-35.0) pg MCHC (31.0-37.0) g/dL RDW (11.5-15.5) % Plt Count (150-450) k/uL Neutrophils # (1.3-7.7) k/uL Macrocytosis ABG Total CO2 (19-24) mmol/L ABG O2 Saturation (94-97) % Potassium (3.5-5.1) mmol/L Chloride (98-107) mmol/L Carbon Dioxide (22-30) mmol/L BUN (9-20) mg/dL Glucose (74-99) mg/dL POC Glucose (mg/dL) 143 H (75-99) mg/dL Plasma Lactic Acid Praveen (0.7-2.0) mmol/L Calcium (8.4-10.2) mg/dL Total Bilirubin 6.6 H (0.2-1.3) mg/dL AST 157 H (17-59) U/L ALT 100 H (4-49) U/L Ammonia 42 H (<30) umol/L Crossmatch 03/04/20 Range/Units 05:43 WBC (3.8-10.6) k/uL RBC (4.30-5.90) m/uL Hgb (13.0-17.5) gm/dL Hct (39.0-53.0) % MCV (80.0-100.0) fL MCH (25.0-35.0) pg MCHC (31.0-37.0) g/dL RDW (11.5-15.5) % Plt Count (150-450) k/uL Neutrophils # (1.3-7.7) k/uL Macrocytosis ABG Total CO2 25 H (19-24) mmol/L ABG O2 Saturation 97.5 H (94-97) % Potassium (3.5-5.1) mmol/L Chloride (98-107) mmol/L Carbon Dioxide (22-30) mmol/L BUN (9-20) mg/dL Glucose (74-99) mg/dL POC Glucose (mg/dL) (75-99) mg/dL Plasma Lactic Acid Praveen (0.7-2.0) mmol/L Calcium (8.4-10.2) mg/dL Total Bilirubin (0.2-1.3) mg/dL AST (17-59) U/L ALT (4-49) U/L Ammonia (<30) umol/L Crossmatch Assessment and Plan Plan: Assessment: Acute hypoxic respiratory failure, suspect aspiration pneumonia. Today's chest x-ray on 03/04/2020 shows a significant interval increase in the left basilar airspace disease with consideration for infectious or aspiration pneumonitis Acute sepsis, possible septic shock, patient required pressors, improved, and is currently off pressors. This is related to aspiration pneumonia. Blood cultures and sputum cultures remain negative. Alcohol liver disease with ascites. Jaundice, and elevated liver enzymes. Blood loss anemia, most likely the patient has acute or subacute GI bleeding, GI is following. Hemoglobin has been stable over last several days, no signs of active bleeding at this time Acute hepatic encephalopathy with significantly elevated ammonia level. Today's ammonia level is a 52, patient is on lactulose and Xifaxan Recent history of fall about 2 months ago, and multiple right-sided rib fractures. History of alcoholic neuropathy. History of pericarditis Chronic back pain History of restless leg syndrome. Acute kidney injury secondary to sepsis and septic shock. Strongly doubt hepatorenal syndrome. Improved Hypernatremia, related to free water deficit. Improved, and today on 03/04/2020 serum sodium is 138 Plan: Proceed with a daily interruption of sedation, will discontinue Diprivan, patient's discomfort can be managed with intermittent doses of IV morphine 1 mg every 6 hours. Today's chest x-ray has been reviewed showing interval increase of left basilar airspace disease, clinically patient remains stable, no fever or chills, hemodynamically stable, FiO2 is at 40%. Obtain procalcitonin level, send a new set of blood cultures, sputum culture and urine culture. Will await those results to make a decision on antibiotics. Continue to monitor clinical course. We'll give the patient a dose of DDAVP 20 g today prior to placement of a new central venous catheter. Discontinue D5W, maintenance IV fluids to go 0.9 normal saline at a rate of KVO, water flushes will be decreased to 100 mL every 4 hours. Repeat chest x-ray and labs in the morning. Patient is scheduled for PEG tube placement today. Continue to closely follow. I performed a history & physical examination of the patient and discussed their management with my nurse practitioner, Mary Kay Nieto. I reviewed the nurse practitioner's note and agree with the documented findings and plan of care. Lung sounds are positive for diminished breath sounds. The findings and the impression was discussed with the patient. I attest to the documentation by the nurse practitioner. Time with Patient: Greater than 30
[2020-03-04] MEDS ORDERED: PROPOFOL 10 MG/ML 20 ML VIAL IV ONE (09:17)
[2020-03-04] MEDS ORDERED: IV FLUID CONTINUATION 1,000 ML IV ONE (09:30)
--- NOTE | 2020-03-04 10:25 | P.OP ---
Date of Procedure: 03/04/20 Preoperative Diagnosis: Malnutrition Postoperative Diagnosis: Mild traction Procedure(s) Performed: EGD with PEG Anesthesia: MAC Surgeon: Dillan Abraham Pathology: none sent Condition: stable Disposition: PACU Description of Procedure: Patient's placed on the bed in the lateral position. He received IV sedation. The gastroscope was oropharynx and passed in the esophagus stomach. A suitable light reflux seen the anterior abdominal wall. The skin was anesthetized 1% local Xylocaine. A skin incision was made and the needles placed into the stomach under direct visualization. The wire was placed through the needle and the wire was snared and brought the oropharynx. The PEG tube placed overtop the wire and brought down into the stomach. The PEG tube was secured at 3 cm megan. The one-piece bolster was applied. Patient tolerated the procedure well.
[2020-03-04 11:34] LABS: Glucose,Whole Blood 120 mg/dL (75-99)
--- NOTE | 2020-03-04 12:53 | P.PN ---
Subjective Progress Note Date: 03/04/20 This is a 54-year-old gentleman, history of polysubstance abuse including alcohol abuse , falls with recent rib fractures, legally blind, osteoarthritis and multiple other medical issues presented to the ER with changes in mental status 2 days. Drug screen positive for tricyclics and benzos, serum alcohol less than 10. UA reported dark brown cloudy urine with occasional bacteria, hyaline casts, 2 WBCs, trace leukocytes, 4+ bilirubin, negative for nitrates. Ammonia level 91, T bili 14.9, currently 15.8 , elevated LFTs .Gallbladder ultrasound reporting abdominal ascites, abdominal x-ray nonacute, right foot x- ray reported no fracture, soft tissue swelling, EKG reported sinus tachycardia, troponin normal, BNP 910, echo reported normal LV function, EF 60-65% ,lactic acid 2.1 now down to 1.7, BUN 25, creatinine 0.8 chest x-ray reporting moderate pulmonary interstitial and airspace edema significantly worse than yesterday, pulmonary edema. ABGs noted. INR on admission 3.7, down to 2.2 Sepsis protocol, Received IV fluid resuscitation, IV antibiotics, cultures drawn. Developed respiratory failure, requiring intubation during the night. Currently on Sandostatin drip. 3 maroon stools during the night. Received 4 units of FFP and 2 units of packed RBCs to date. Hemoglobin currently 8.5. And had required pressor support with Levophed off since . Maintained on IV fluid resuscitation. Telemetry sinus rhythm. Potassium 3.2, magnesium 1.7. 02/24/2020 chest x-ray reporting persistent bilateral scattered airspace infiltrates, pleural effusion unchanged. Ventilator dependent, on FiO2 of 50 with PEEP increased to 12. Continues on lactulose with ammonia down to 80. T bili decreased to 11.3, LFTs improving. No further maroon stools. Small black stool this morning. Hemoglobin 8.6. Telemetry sinus rhythm to sinus tach. Sandostatin drip discontinued this morning. Last night patient asynchronous with vent, stacking breaths, Nimbex drip initiated. This morning Nimbex discontinued, changed to fentanyl drip. Requiring pressor support, Levophed resumed. Received vitamin K yesterday, INR 2.1. Marginal urine output, IV fluids decreased, and Lasix IV push added to med regime. Tube feedings ordered. Afebrile, WBC 14.7. Sputum culture pending, preliminary blood cultures negative at 48 hours. ABGs noted. 02/25/2020 yesterday Lasix and Aldactone initiated, creatinine mildly worsened up to 1.32. Ammonia increased up to 89, lactulose increased. No further maroon stools, hemoglobin increased to 9.4, platelets increased to 75. T bili trending down, 8.9, LFTs improving. Potassium 3.4. Chest x-ray reporting improving left lower lobe aeration. Right foot evaluated by orthopedic surgery, possible fluid collection, seroma with potential x-ray tomorrow. Tolerating tube feeds with minimal to no residuals, currently at 30 mls per hour with goal of 45. IV steroids added to med regimen with blood sugars increasing. Remains vent dependent with FiO2 at 50/+12 of PEEP. Continues on Levophed, fentanyl, diprovan drips. Afebrile, T-max 99.5, WBC 14.1. 02/26/2020 ABGs unchanged,remains vent dependent, FiO2 50/+12 PEEP. Chest x-ray reporting improvement. Maintained on both Xifaxan & Lactulose, ammonia increasing, beginning to stool. Creatinine trending up 1.4. Hemoglobin decreased to 8.5. INR 1.7 Levophed weaned off this morning. Attempted a sedation holiday for about an hour this morning; patient did not wake up, became agitated, tachycardic, tachypneic with respiratory rate up into the 40s, diprovan/fentanyl drips resumed. Tolerating tube feeds at 40 with goal of 45/minimal to no residual. Orthopedics discussing x-ray and foot possibly tomorrow. Afebrile WBC down to 11. 03/03/2020 patient was trached yesterday, remains vent dependent with FiO2 45%/+5 of PEEP. Chest x-ray suggestive of possible left lower lobe pneumonia, v ersus atelectasis, possible interstitial disease. Scheduled for PEG tube placement today. To date, patient has not tolerated sedation holidays, not following commands, becomes agitated, and becomes asynchronous with the patient. Neurology consulted, EEG completed, results pending. Maintain on D5W with improvement in sodium, Na 146. Currently sedated on Diprovan gtt. telemetry sinus rhythm. Ammonia level LII on lactulose and Xifaxan. 03/04/2020 EGD with PEG tube placement completed at bedside this morning, tolerated procedure well. Like gastroesophageal reflux reported along the anterior abdominal wall. Evaluated by neurology with recommendations noted and appreciated. EEG completed yesterday reporting abnormal, background slowing ,suggestive of generalized cerebral dysfunction seen with toxic metabolic encephalopathy related to diffuse structural brain abnormality, no obvious epileptiform activity seen. Afebrile, WBC continues trending up, currently 24.8, recultured. During sedation holiday patient noted to spontaneously move his right hand, half open his eyes responding to his name. Diprovan has been weaned off this morning. Remains vent dependent with FiO2 40%/+5 of PEEP. Chest x-ray reporting significant interval increase in left basilar airspace disease, possible infectious or aspiration pneumonitis. Ammonia level 42. Receiving potassium supplements for potassium 2.8. Sodium continues improving, 138. Objective - Vital Signs Vital signs: Vital Signs Temp 97.8 F 03/04/20 08:00 Pulse 80 03/04/20 11:25 Resp 14 03/04/20 11:00 BP 91/51 03/04/20 10:00 Pulse Ox 97 03/04/20 11:00 Intake & Output 03/03/20 03/04/20 03/04/20 18:59 06:59 18:59 Intake Total 2782.228 2832.232 642.512 Output Total 920 2350 1565 Balance 1862.228 482.232 -922.488 Weight 92 kg Intake: IV 1536 1664 307 0.9 NS 20 Dextrose 5% in Water 1, 1500 1625 250 000 ml @ 125 mls/hr IV . Q8H JARED Rx#:[id number] Normal Saline Pressure 36 39 12 Bag Intake, IV Titration 176.228 98.232 335.512 Amount Potassium Chloride 20 meq 300 In Water For Injection 1 100ml.bag @ 50 mls/hr IVPB Q2H JARED Rx#: [id number] Propofol 1,000 mg In 176.228 98.232 35.512 Empty Bag 1 bag @ Titrate IV .Q0M JARDE Rx#: [id number] Tube Feeding 270 270 Other 800 800 Output: Urine 920 950 165 Stool 1400 1400 Other: Voiding Method Indwelling Catheter Indwelling Catheter Indwelling Catheter ABP, PAP, CO, CI - Last Documented Arterial Blood Pressure 105/52 - Exam VITAL SIGNS: As above GENERAL: Sitting up in bed, intubated HEENT: Conjunctivae normal. Positive icterus, jaundice NECK: No JVD. No thyroid enlargement. No LNs CARDIOVASCULAR: S1, S2 regular. Systolic murmur RESPIRATION: Clear, with no rhonchi, crackles or wheezing. ABDOMEN: Soft, distended, positive bowel sounds Extremities: Positive upper and lower extremity edema, no clubbing, no cyanosis. Right foot dorsal edema NERVOUS SYSTEM: Unable to assess, sedated Skin: Warm and dry, no rash - Labs CBC & Chem 7: 03/04/20 04:50 03/04/20 04:50 Labs: Abnormal Lab Results - Last 24 Hours (Table) 02/22/20 02/22/20 02/22/20 Range/Units 14:10 17:24 20:03 WBC (3.8-10.6) k/uL RBC (4.30-5.90) m/uL Hgb (13.0-17.5) gm/dL Hct (39.0-53.0) % MCV (80.0-100.0) fL MCH (25.0-35.0) pg MCHC (31.0-37.0) g/dL RDW (11.5-15.5) % Plt Count (150-450) k/uL Neutrophils # (1.3-7.7) k/uL Macrocytosis ABG Total CO2 (19-24) mmol/L ABG O2 Saturation (94-97) % Potassium (3.5-5.1) mmol/L Chloride (98-107) mmol/L Carbon Dioxide (22-30) mmol/L BUN (9-20) mg/dL Glucose (74-99) mg/dL POC Glucose (mg/dL) (75-99) mg/dL Plasma Lactic Acid Praveen 3.1 H* 2.2 H* (0.7-2.0) mmol/L Calcium (8.4-10.2) mg/dL Total Bilirubin (0.2-1.3) mg/dL AST (17-59) U/L ALT (4-49) U/L Ammonia (<30) umol/L Crossmatch See Detail 02/22/20 02/23/20 03/02/20 Range/Units 22:50 17:30 04:30 WBC 16.2 H (3.8-10.6) k/uL RBC 2.22 L (4.30-5.90) m/uL Hgb 8.1 L (13.0-17.5) gm/dL Hct 25.3 L (39.0-53.0) % MCV 114.0 H (80.0-100.0) fL MCH 36.7 H (25.0-35.0) pg MCHC (31.0-37.0) g/dL RDW 22.7 H (11.5-15.5) % Plt Count 49 L (150-450) k/uL Neutrophils # 14.5 H (1.3-7.7) k/uL Macrocytosis Marked A ABG Total CO2 (19-24) mmol/L ABG O2 Saturation (94-97) % Potassium 3.2 L (3.5-5.1) mmol/L Chloride 113 H (98-107) mmol/L Carbon Dioxide 20 L (22-30) mmol/L BUN 25 H (9-20) mg/dL Glucose 100 H (74-99) mg/dL POC Glucose (mg/dL) (75-99) mg/dL Plasma Lactic Acid Praveen 2.1 H* (0.7-2.0) mmol/L Calcium 7.1 L (8.4-10.2) mg/dL Total Bilirubin (0.2-1.3) mg/dL AST (17-59) U/L ALT (4-49) U/L Ammonia (<30) umol/L Crossmatch 03/03/20 03/03/20 03/03/20 Range/Units 04:50 17:56 23:55 WBC 19.2 H (3.8-10.6) k/uL RBC 2.29 L (4.30-5.90) m/uL Hgb 8.1 L (13.0-17.5) gm/dL Hct 26.3 L (39.0-53.0) % MCV 114.7 H (80.0-100.0) fL MCH 35.5 H (25.0-35.0) pg MCHC 30.9 L (31.0-37.0) g/dL RDW 21.9 H (11.5-15.5) % Plt Count 41 L (150-450) k/uL Neutrophils # 17.4 H (1.3-7.7) k/uL Macrocytosis Marked A ABG Total CO2 (19-24) mmol/L ABG O2 Saturation (94-97) % Potassium (3.5-5.1) mmol/L Chloride (98-107) mmol/L Carbon Dioxide (22-30) mmol/L BUN (9-20) mg/dL Glucose (74-99) mg/dL POC Glucose (mg/dL) 225 H 241 H (75-99) mg/dL Plasma Lactic Acid Praveen (0.7-2.0) mmol/L Calcium (8.4-10.2) mg/dL Total Bilirubin (0.2-1.3) mg/dL AST (17-59) U/L ALT (4-49) U/L Ammonia (<30) umol/L Crossmatch 03/04/20 03/04/20 03/04/20 Range/Units 04:50 04:50 04:50 WBC 24.8 H (3.8-10.6) k/uL RBC 2.36 L (4.30-5.90) m/uL Hgb 8.8 L (13.0-17.5) gm/dL Hct 26.6 L (39.0-53.0) % MCV 112.4 H (80.0-100.0) fL MCH 37.1 H (25.0-35.0) pg MCHC (31.0-37.0) g/dL RDW 21.0 H (11.5-15.5) % Plt Count 35 L (150-450) k/uL Neutrophils # 21.9 H (1.3-7.7) k/uL Macrocytosis Marked A ABG Total CO2 (19-24) mmol/L ABG O2 Saturation (94-97) % Potassium 2.8 L (3.5-5.1) mmol/L Chloride 111 H (98-107) mmol/L Carbon Dioxide (22-30) mmol/L BUN 55 H (9-20) mg/dL Glucose 131 H (74-99) mg/dL POC Glucose (mg/dL) (75-99) mg/dL Plasma Lactic Acid Praveen (0.7-2.0) mmol/L Calcium 8.1 L (8.4-10.2) mg/dL Total Bilirubin 6.6 H (0.2-1.3) mg/dL AST 157 H (17-59) U/L ALT 100 H (4-49) U/L Ammonia (<30) umol/L Crossmatch 03/04/20 03/04/20 03/04/20 Range/Units 05:28 05:32 05:43 WBC (3.8-10.6) k/uL RBC (4.30-5.90) m/uL Hgb (13.0-17.5) gm/dL Hct (39.0-53.0) % MCV (80.0-100.0) fL MCH (25.0-35.0) pg MCHC (31.0-37.0) g/dL RDW (11.5-15.5) % Plt Count (150-450) k/uL Neutrophils # (1.3-7.7) k/uL Macrocytosis ABG Total CO2 25 H (19-24) mmol/L ABG O2 Saturation 97.5 H (94-97) % Potassium (3.5-5.1) mmol/L Chloride (98-107) mmol/L Carbon Dioxide (22-30) mmol/L BUN (9-20) mg/dL Glucose (74-99) mg/dL POC Glucose (mg/dL) 143 H (75-99) mg/dL Plasma Lactic Acid Praveen (0.7-2.0) mmol/L Calcium (8.4-10.2) mg/dL Total Bilirubin (0.2-1.3) mg/dL AST (17-59) U/L ALT (4-49) U/L Ammonia 42 H (<30) umol/L Crossmatch 03/04/20 Range/Units 11:33 WBC (3.8-10.6) k/uL RBC (4.30-5.90) m/uL Hgb (13.0-17.5) gm/dL Hct (39.0-53.0) % MCV (80.0-100.0) fL MCH (25.0-35.0) pg MCHC (31.0-37.0) g/dL RDW (11.5-15.5) % Plt Count (150-450) k/uL Neutrophils # (1.3-7.7) k/uL Macrocytosis ABG Total CO2 (19-24) mmol/L ABG O2 Saturation (94-97) % Potassium (3.5-5.1) mmol/L Chloride (98-107) mmol/L Carbon Dioxide (22-30) mmol/L BUN (9-20) mg/dL Glucose (74-99) mg/dL POC Glucose (mg/dL) 120 H (75-99) mg/dL Plasma Lactic Acid Praveen (0.7-2.0) mmol/L Calcium (8.4-10.2) mg/dL Total Bilirubin (0.2-1.3) mg/dL AST (17-59) U/L ALT (4-49) U/L Ammonia (<30) umol/L Crossmatch Assessment and Plan Assessment: Sepsis secondary to aspiration bilateral pneumonia, possibly abdominal source, Acute hypoxic respiratory failure, related to the above, ventilator dependent, failure to wean, status post tracheostomy. Septic and hypovolemic shock multifactorial, secondary to bilateral aspiration pneumonia, alcoholic liver disease Septic shock status post pressor support Hypotension, secondary to the above, pressor support dependent secondary to sepsis Acute renal failure multifactorial, secondary to all the above, diuretics Acute GI bleed, possible esophageal varices in a patient with significant alcohol dependence, on Sandostatin Acute blood loss anemia, status post multiple transfusions of both FFP, packed RBCs Acute Hepatic encephalopathy Possible acute toxic, metabolic encephalopathy Alcoholic liver disease with ascites Hyperammonia Recent posterior lateral rib fractures of 9, 10 and 11 status post fall History of pericarditis Chronic back pain Polysubstance abuse, per record review; patient reports alcohol, marijuana use currently. History of nicotine dependence COPD, emphysema Legally blind Obesity, BMI 30.7 Osteoarthritis Venous insufficiency Anxiety, depression, history of, currently controlled Hyperglycemia, steroid-induced Moderate protein calorie malnutrition Hypernatremia secondary free water deficit, improving Status post PEG tube placement Hypokalemia Plan: Continue on current medication regime ,monitoring and symptomatic tr eatment. Electrolyte replacement in progress .Worsening leukocytosis, recultured .pro-calcitonin level pending. further weaning trials as per otm consultant .Continue on lactulose, Xifaxan, close monitoring of ammonia level . Select specialty possibly at discharge. Prognosis guarded given multiple complex medical issues. The impression and plan of care has been dictated as directed. : I performed a history and examination of this patient, discussed the same with the dictator. I agree with the dictator's note ,documented as a scribe. Any additional findings or plans will be noted.
[2020-03-04 17:42] LABS: Glucose,Whole Blood 105 mg/dL (75-99)
[2020-03-04] MEDS ORDERED: SODIUM CHLORIDE 0.9% 1,000 ML IV ONE (22:21)
[2020-03-04] MEDS: POTASSIUM CHLORIDE 10 MEQ in WATER FOR INJECTION 1 100ML.BAG IVPB SCH (22:56)
[2020-03-04] MEDS ORDERED: SODIUM CHLORIDE 0.9% 500 ML 500 ML IV ONE (23:17)
[2020-03-04 23:47] LABS: Glucose,Whole Blood 130 mg/dL (75-99)
[2020-03-05] MEDS: IPRATROPIUM-ALBUTEROL 3 ML NEB INHALATION SCH ×7 (00:29→23:37)
[2020-03-05] MEDS: POTASSIUM CHLORIDE 10 MEQ in WATER FOR INJECTION 1 100ML.BAG IVPB SCH (01:36)
[2020-03-05] MEDS: NOREPINEPHRINE 8 MG in SODIUM CHLORIDE 0.9% 250 ML IV SCH (01:50)
[2020-03-05 04:27] LABS: ABG Base Excess -2.1 mmol/L; ABG HCO3 22 mmol/L (21-25); ABG Oxygen Saturation 95.2 % (94-97); ABG PCO2 31 mmHg (35-45); ABG PH 7.45 (7.35-7.45); ABG PO2 73 mmHg (83-108); ABG TCO2 23 mmol/L (19-24); Allen Test Performed? Yes
[2020-03-05 04:42] LABS: ALT 120 U/L (4-49); AST 195 U/L (17-59); African American GFR (CKD) >90 (>60 ml/min/1.73 sqM); Albumin 2.1 g/dL (3.5-5.0); Alkaline Phosphatase 93 U/L (38-126); Anion Gap 5 mmol/L; Blood Urea Nitrogen 50 mg/dL (9-20); Calcium 8.2 mg/dL (8.4-10.2); Carbon Dioxide 21 mmol/L (22-30); Chloride 114 mmol/L (98-107); Glucose 134 mg/dL (74-99); Non-African American GFR(CKD) >90 (>60 ml/min/1.73 sqM); Sodium 140 mmol/L (137-145); Total Bilirubin 7.1 mg/dL (0.2-1.3); Total Protein 5.7 g/dL (6.3-8.2)
[2020-03-05 04:45] LABS: Anisocytosis Moderate; Basophils % (A) 0 %; Eosinophils # (A) 0.2 k/uL (0-0.7); Eosinophils % (A) 1 %; HCT 26.3 % (39.0-53.0); HGB 8.6 gm/dL (13.0-17.5); Hypochromasia Slight; Lymphocytes # (A) 2.4 k/uL (1.0-4.8); Lymphocytes % (A) 10 %; MCH 37.3 pg (25.0-35.0); MCHC 32.6 g/dL (31.0-37.0); MCV 114.6 fL (80.0-100.0); Macrocytosis Marked; Mean Platelet Volume 13.9; Monocytes # (A) 0.7 k/uL (0-1.0); Monocytes % (A) 3 %; Neutrophils # (A) 21.1 k/uL (1.3-7.7); Neutrophils % (A) 86 %; RDW 21.6 % (11.5-15.5); WBC 24.6 k/uL (3.8-10.6)
[2020-03-05 05:06] LABS: Platelet Count 37 k/uL (150-450)
--- NOTE | 2020-03-05 05:07 | P.PN ---
Subjective Progress Note Date: 03/04/20 Principal diagnosis: Alcoholic hepatitis, alcoholic cirrhosis of the liver with ascites, hepatic encephalopathy, elevated liver enzymes Patient is seen in the intensive care unit where he is currently status post tracheostomy, and PEG tube placement. Mentation still poor but improving. Liver enzymes stable. Objective - Vital Signs Vital signs: Vital Signs Temp 97.2 F L 03/04/20 12:00 Pulse 75 03/04/20 13:00 Resp 20 03/04/20 13:00 BP 95/54 03/04/20 13:00 Pulse Ox 98 03/04/20 13:00 Intake & Output 03/03/20 03/04/20 03/04/20 18:59 06:59 18:59 Intake Total 2782.228 2832.232 668.512 Output Total 920 2350 1625 Balance 1862.228 482.232 -956.488 Weight 92 kg 92 kg Intake: IV 1536 1664 333 0.9 NS 40 Dextrose 5% in Water 1, 1500 1625 250 000 ml @ 125 mls/hr IV . Q8H JARED Rx#:[id number] Normal Saline Pressure 36 39 18 Bag Intake, IV Titration 176.228 98.232 335.512 Amount Potassium Chloride 20 meq 300 In Water For Injection 1 100ml.bag @ 50 mls/hr IVPB Q2H JARED Rx#: [id number] Propofol 1,000 mg In 176.228 98.232 35.512 Empty Bag 1 bag @ Titrate IV .Q0M JARED Rx#: [id number] Tube Feeding 270 270 Other 800 800 Output: Urine 920 950 225 Stool 1400 1400 Other: Voiding Method Indwelling Catheter Indwelling Catheter Indwelling Catheter ABP, PAP, CO, CI - Last Documented Arterial Blood Pressure 87/43 - Exam On physical examination, patient appears comfortable in no apparent distress. HEAD: Normocephalic, atraumatic. EYES: Scleral icterus. No conjunctival injection. MOUTH: No lesions, tongue midline, endotracheal tube in place. NECK: Tracheostomy in place. CHEST: Coarse respiratory noises in all lung soni on mechanical ventilation. ABDOMEN: Soft, PEG tube in place. Bowel sounds are positive. No organomegaly. No guarding or rigidity. EXTREMITIES: Bilateral pedal edema. SKIN: No rashes, jaundice. NEUROLOGIC: Intubated and sedated. - Labs CBC & Chem 7: 03/04/20 04:50 03/05/20 04:18 Labs: Abnormal Lab Results - Last 24 Hours (Table) 02/22/20 02/22/20 02/22/20 Range/Units 14:10 17:24 20:03 WBC (3.8-10.6) k/uL RBC (4.30-5.90) m/uL Hgb (13.0-17.5) gm/dL Hct (39.0-53.0) % MCV (80.0-100.0) fL MCH (25.0-35.0) pg MCHC (31.0-37.0) g/dL RDW (11.5-15.5) % Plt Count (150-450) k/uL Neutrophils # (1.3-7.7) k/uL Macrocytosis ABG Total CO2 (19-24) mmol/L ABG O2 Saturation (94-97) % Potassium (3.5-5.1) mmol/L Chloride (98-107) mmol/L Carbon Dioxide (22-30) mmol/L BUN (9-20) mg/dL Glucose (74-99) mg/dL POC Glucose (mg/dL) (75-99) mg/dL Plasma Lactic Acid Praveen 3.1 H* 2.2 H* (0.7-2.0) mmol/L Calcium (8.4-10.2) mg/dL Total Bilirubin (0.2-1.3) mg/dL AST (17-59) U/L ALT (4-49) U/L Ammonia (<30) umol/L Crossmatch See Detail 02/22/20 02/23/20 03/02/20 Range/Units 22:50 17:30 04:30 WBC 16.2 H (3.8-10.6) k/uL RBC 2.22 L (4.30-5.90) m/uL Hgb 8.1 L (13.0-17.5) gm/dL Hct 25.3 L (39.0-53.0) % MCV 114.0 H (80.0-100.0) fL MCH 36.7 H (25.0-35.0) pg MCHC (31.0-37.0) g/dL RDW 22.7 H (11.5-15.5) % Plt Count 49 L (150-450) k/uL Neutrophils # 14.5 H (1.3-7.7) k/uL Macrocytosis Marked A ABG Total CO2 (19-24) mmol/L ABG O2 Saturation (94-97) % Potassium 3.2 L (3.5-5.1) mmol/L Chloride 113 H (98-107) mmol/L Carbon Dioxide 20 L (22-30) mmol/L BUN 25 H (9-20) mg/dL Glucose 100 H (74-99) mg/dL POC Glucose (mg/dL) (75-99) mg/dL Plasma Lactic Acid Praveen 2.1 H* (0.7-2.0) mmol/L Calcium 7.1 L (8.4-10.2) mg/dL Total Bilirubin (0.2-1.3) mg/dL AST (17-59) U/L ALT (4-49) U/L Ammonia (<30) umol/L Crossmatch 03/03/20 03/03/20 03/03/20 Range/Units 04:50 17:56 23:55 WBC 19.2 H (3.8-10.6) k/uL RBC 2.29 L (4.30-5.90) m/uL Hgb 8.1 L (13.0-17.5) gm/dL Hct 26.3 L (39.0-53.0) % MCV 114.7 H (80.0-100.0) fL MCH 35.5 H (25.0-35.0) pg MCHC 30.9 L (31.0-37.0) g/dL RDW 21.9 H (11.5-15.5) % Plt Count 41 L (150-450) k/uL Neutrophils # 17.4 H (1.3-7.7) k/uL Macrocytosis Marked A ABG Total CO2 (19-24) mmol/L ABG O2 Saturation (94-97) % Potassium (3.5-5.1) mmol/L Chloride (98-107) mmol/L Carbon Dioxide (22-30) mmol/L BUN (9-20) mg/dL Glucose (74-99) mg/dL POC Glucose (mg/dL) 225 H 241 H (75-99) mg/dL Plasma Lactic Acid Praveen (0.7-2.0) mmol/L Calcium (8.4-10.2) mg/dL Total Bilirubin (0.2-1.3) mg/dL AST (17-59) U/L ALT (4-49) U/L Ammonia (<30) umol/L Crossmatch 03/04/20 03/04/20 03/04/20 Range/Units 04:50 04:50 04:50 WBC 24.8 H (3.8-10.6) k/uL RBC 2.36 L (4.30-5.90) m/uL Hgb 8.8 L (13.0-17.5) gm/dL Hct 26.6 L (39.0-53.0) % MCV 112.4 H (80.0-100.0) fL MCH 37.1 H (25.0-35.0) pg MCHC (31.0-37.0) g/dL RDW 21.0 H (11.5-15.5) % Plt Count 35 L (150-450) k/uL Neutrophils # 21.9 H (1.3-7.7) k/uL Macrocytosis Marked A ABG Total CO2 (19-24) mmol/L ABG O2 Saturation (94-97) % Potassium 2.8 L (3.5-5.1) mmol/L Chloride 111 H (98-107) mmol/L Carbon Dioxide (22-30) mmol/L BUN 55 H (9-20) mg/dL Glucose 131 H (74-99) mg/dL POC Glucose (mg/dL) (75-99) mg/dL Plasma Lactic Acid Praveen (0.7-2.0) mmol/L Calcium 8.1 L (8.4-10.2) mg/dL Total Bilirubin 6.6 H (0.2-1.3) mg/dL AST 157 H (17-59) U/L ALT 100 H (4-49) U/L Ammonia (<30) umol/L Crossmatch 03/04/20 03/04/20 03/04/20 Range/Units 05:28 05:32 05:43 WBC (3.8-10.6) k/uL RBC (4.30-5.90) m/uL Hgb (13.0-17.5) gm/dL Hct (39.0-53.0) % MCV (80.0-100.0) fL MCH (25.0-35.0) pg MCHC (31.0-37.0) g/dL RDW (11.5-15.5) % Plt Count (150-450) k/uL Neutrophils # (1.3-7.7) k/uL Macrocytosis ABG Total CO2 25 H (19-24) mmol/L ABG O2 Saturation 97.5 H (94-97) % Potassium (3.5-5.1) mmol/L Chloride (98-107) mmol/L Carbon Dioxide (22-30) mmol/L BUN (9-20) mg/dL Glucose (74-99) mg/dL POC Glucose (mg/dL) 143 H (75-99) mg/dL Plasma Lactic Acid Praveen (0.7-2.0) mmol/L Calcium (8.4-10.2) mg/dL Total Bilirubin (0.2-1.3) mg/dL AST (17-59) U/L ALT (4-49) U/L Ammonia 42 H (<30) umol/L Crossmatch 03/04/20 Range/Units 11:33 WBC (3.8-10.6) k/uL RBC (4.30-5.90) m/uL Hgb (13.0-17.5) gm/dL Hct (39.0-53.0) % MCV (80.0-100.0) fL MCH (25.0-35.0) pg MCHC (31.0-37.0) g/dL RDW (11.5-15.5) % Plt Count (150-450) k/uL Neutrophils # (1.3-7.7) k/uL Macrocytosis ABG Total CO2 (19-24) mmol/L ABG O2 Saturation (94-97) % Potassium (3.5-5.1) mmol/L Chloride (98-107) mmol/L Carbon Dioxide (22-30) mmol/L BUN (9-20) mg/dL Glucose (74-99) mg/dL POC Glucose (mg/dL) 120 H (75-99) mg/dL Plasma Lactic Acid Praveen (0.7-2.0) mmol/L Calcium (8.4-10.2) mg/dL Total Bilirubin (0.2-1.3) mg/dL AST (17-59) U/L ALT (4-49) U/L Ammonia (<30) umol/L Crossmatch Assessment and Plan (1) Acute alcoholic hepatitis Narrative/Plan: 54-year-old male with known history of alcohol abuse presenting to the hospital with altered mental status. Likely multifactorial given suspected underlying decompensated cirrhosis, acute alcoholic hepatitis and concern for aspiration pneumonia and sepsis. Currently receiving treatment in the ICU, he remains on broad-spectrum antibiotic therapy and mechanically ventilated. Patient is status post tracheostomy placement and PEG tube placement. Current Visit: Yes Status: Acute Code(s): K70.10 - ALCOHOLIC HEPATITIS WITHOUT ASCITES SNOMED Code(s): 1293811 (2) Liver cirrhosis Current Visit: Yes Status: Acute Code(s): K74.60 - UNSPECIFIED CIRRHOSIS OF LIVER SNOMED Code(s): 05874407 (3) Ascites Current Visit: Yes Status: Acute Code(s): R18.8 - OTHER ASCITES SNOMED Code(s): 660071409 (4) Hepatic encephalopathy Current Visit: Yes Status: Acute Code(s): K72.90 - HEPATIC FAILURE, UNSPECIFIED WITHOUT COMA SNOMED Code(s): 83568357 (5) Bicytopenia Narrative/Plan: Patient anemic and thrombocytopenic likely related to chronic alcohol use. Stool testing was positive for blood but patient has no signs or symptoms of GI bleeding with normal brown stool noted and fecal management system. Hemoglobin has remained stable. Current Visit: Yes Status: Acute Code(s): D75.89 - OTHER SPECIFIED DISEASES OF BLOOD AND BLOOD-FORMING ORGANS SNOMED Code(s): 34653855 Plan: Supportive care Okay for tube feed through PEG tube Continue management per bunch breaker service, patient currently intubated and sedated Continue broad-spectrum antibiotic therapy Continue lactulose 4 times a day Xifaxan twice daily Neurology service following for altered mentation Status post tracheostomy Alcohol abstinence Thank you for allowing us to participate in the care of the patient we will continue to follow
[2020-03-05 06:03] LABS: Glucose,Whole Blood 133 mg/dL (75-99)
[2020-03-05 06:08] LABS: Large Platelets Present; Polychromasia Present
[2020-03-05 06:09] LABS: Target Cells Present
[2020-03-05] MEDS: INSULIN ASPART (NovoLOG) 100 UNIT/ML VIAL SQ SCH ×4 (06:19→23:38)
--- NOTE | 2020-03-05 07:21 | XR ---
EXAMINATION TYPE: XR chest 1V portable DATE OF EXAM: 03/05/2020 HISTORY: Shortness of breath. COMPARISON: 03/04/2020 TECHNIQUE: Single view of the chest is submitted. FINDINGS: Tracheostomy tube redemonstrated. NG tube has been. Left lower lobe infiltrate persists. The heart is stable. Hilar and mediastinal structures are within normal limits. Degenerative changes are seen of the dorsal spine. IMPRESSION: 1. Persistent left lower lobe infiltrate.
[2020-03-05] MEDS: CISATRACURIUM 2 MG/ML 5 ML VIAL IV ONE (09:28)
[2020-03-05] MEDS: CHLORHEXIDINE GLUCONATE 15 ML CUP MUCOUS MEM SCH ×2 (09:30→20:44)
--- NOTE | 2020-03-05 09:31 | P.PN ---
Subjective Progress Note Date: 03/05/20 Principal diagnosis: Acute liver failure, acute hypoxic respiratory failure This is a 54-year-old white male, history of alcohol abuse, patient was brought into the ER with change in mental status according to EMS. Patient could not give any history, he was a very poor historian upon arrival to the ER. Patient is supposedly a daily drinker, however from my review of the chart, I saw this patient back on 11/11/19, patient presented back then with multiple posterior lateral rib fractures on the right. Apparently he fell in his bathroom, and landed on the side of the top sustaining multiple rib fractures. Patient sustained rib fractures of 910 and 11 ribs. Patient is also known to have history of severe emphysema/COPD. He is legally blind. He has history of pericarditis, anxiety, and history of degenerative joint disease. Patient was discharged home on 11/12/19. Drug screen in the ER was positive for tricyclic antidepressants and positive for benzodiazepines. Rest of the drug screen was basically negative. ABG in the ER showed a pO2 of 63 pCO2 of 29 pH of 7.49. Patient was also noted to have elevated INR of 3.7. Low hemoglobin of 7.0 although his baseline hemoglobin from 2 months ago was 15.1. Ammonia level was 91. Total bilirubin was 14.9, and his liver enzymes were a bit elevated. Normal amylase and lipase were noted. Gallbladder ultrasound showed abdominal ascites. Chest x-ray showed bilateral diffuse infiltrates. Patient was presumed septic upon presentation, received fluid boluses of 2500 ML's. Patient was found to have hepatic encephalopathy liver failure, bilateral pneumonia, GI hemorrhage and sepsis. Early this morning, patient was intubated, placed on mechanical ventilation, and he was aware of the patient since admission. Presently the patient is on assist control rate of 28 tidal volume is 500 FiO2 is 100% PEEP of 5. ABG showed a pO2 of 170 pCO2 of 31 pH of 7.46. Hence I cut down the FiO2 to 50%, increased the PEEP to 8, cut down the tidal volume to 450, and decrease the respiratory rate to 26. Patient is on Sandostatin for his GI bleeding, and he is yet to be seen by gastroenterology on consultation is also on Protonix. He is on lactulose for his elevated ammonia level. And he is empirically on Zosyn for presumptive aspiration pneumonia. Echocardiogram showed evidence of good LV function. And mild valvular heart disease. BNP level was borderline elevated at 910 Patient was reevaluated today on 02/24/20, remains on mechanical ventilation. He is presently on assist control rate of 26 tidal volume is 450 FiO2 of 60% and PEEP of 8. However I increased his PEEP to 12 and cut down his FiO2 to 50%. At night the patient developed worsening agitation, and Stacking his breaths, was not synchronous with mechanical ventilation, hence had to place the patient on Nimbex. Today I plan to discontinue Nimbex and place him on fentanyl 25 g per hour. Patient will be started on tube feeding, and I cut down his IV fluid to 50 MLS per hour. Remains on propofol at 60 mcg/kg/m, Nimbex which will be disco ntinued, but creatinine which was discontinued this morning, and norepinephrine at 0.06 mcg/kg/m. Enteral feeding to be started today by senior accounts payable clerk. Patient remains on antibiotics, remains on lactulose for his elevated ammonia level which is 80 today. And he remains on Protonix. Chest x-ray showed more consolidation noted bilaterally in both lungs more so in the left lung. Bilateraldisease is noted consistent with aspiration pneumonia. Sputum cultures and blood cultures so far remain on diagnostic. ABG today showed a pO2 of 67 pCO2 of 39 pH of 7.33. WBC count is 14.7 hemoglobin is 8.6 platelets are 66,000 and INR is 2.1. Electrolytes are basically normal renal profile showed beer of 25 creatinine 0.94. Patient was reevaluated today on 02/25/20, remains in the intensive care unit, remains on mechanical ventilation. His ventilator settings are assist control rate of 26, tidal volume is 450 FiO2 is 50% and PEEP is at 12. ABG showed a pO2 of 65 pCO2 of 37 pH of 7.36, hence no change was made in the ventilator settings. Patient remains on norepinephrine at 0.09 mcg/kg/m, propofol at 45 mcg/kg/m, fentanyl at 0.5 mcg/kg/h. Remains on enteral feeding at 30 MLS per hour goal is 45. Remains on Zosyn for empiric coverage of aspiration pneumonia. Remains on lactulose and the dose was increased to 45 ML 4 times a day, and added Xifaxan at 550 mg twice a day. His lactulose does not seem to be inducing enough diarrhea did get his ammonia level down. Continues to have significantly elevated ammonia level in spite of lactulose for the last 2 days. Patient continues to have ascites. And no plans for paracentesis as recommended by gastroenterology at this point. Chest x-ray showed very minimal improvement if any in his bilateral infiltrates. The bilateral infiltrates are suggestive of aspiration pneumonia. Obviously the patient is known to have history of alcoholism, and he presented with alcoholic liver hepatitis, and hepatic encephalopathy. Labs today were all reviewed WBC is 14.1 hemoglobin is 9.4 platelets are 75,000 INR is 1.7. Electrolytes are unremarkable except for low potassium of 3.4 BUN of 27 creatinine 1.32. Liver enzymes are borderline elevat ed. Total bilirubin is improving down to 8.9 today. Albumin is 2.3 Patient was reevaluated today on 02/26/20, remains in the ICU, intubated, mechanically ventilated. Patient is on assist control rate of 26 tidal volume 450 FiO2 50% and PEEP is 12. Chest x-ray is showing definite improvement, zeng rosio his ABG is basically about the same with a pO2 of 68 pCO2 of 38 and pH of 7.38. His ammonia level is on the rise in spite of the fact that the patient is on relatively high dose of lactulose and he is also on Xifaxan. Patient remains on propofol at 40 mcg/kg/m, fentanyl at 0.5 mcg/kg/h, he is on very small dose of norepinephrine at 0.01 mcg/kg/m, IV fluid is at KVO, and he is also on Zosyn for presumptive aspiration pneumonia. Remains on diuretics in the form of Lasix, Aldactone. His Lasix was increased to 40 mg 3 times a day, and he is on Aldactone via nasogastric tube. Patient was taken off sedation today, however he became extremely agitated, tachypneic, tachycardic, hence we had to place him back on sedation and continued assist control mode of mechanical ventilation. Chest x-ray again showed improvement. WBC count today is 11 hemoglobin is 8.5 his INR is 1.7 basic metabolic profile is improving, creatinine however is up to 1.40, and the patient obviously developed acute kidney injury. This could very well be related to his sepsis, and related to his hypotension requiring norepinephrine. Cultures including blood cultures and sputum cultures have been negative. Patient was reevaluated today in the ICU, remains intubated and mechanically ventilated. His ventilator settings are assist control rate of 26 tidal volume is 450 FiO2 is 50% and PEEP is at 12 chest x-ray showed dramatic improvement. His ABG is significantly improved hence I recommended cutting down the PEEP to 8. His ammonia level is significantly improved today, it is down to 69. Sodium seems to be creeping up a little bit, and I recommended free water flushes via orogastric tube. Patient is on propofol at 50 mcg/kg/m, his tube feeding is presently on hold because of increased residual. Patient was given a sedation holiday, however when he went off propofol, the patient became extremely agitated, restless, biting on the endotracheal tube, tachycardic, tachypneic, and was extremely agitated. Hence I recommended placing him back on propofol, and not quite ready for weaning. Labs were all reviewed today. And addressed accordingly including his elevated sodium and elevated BUN of 49 creatinine 1.46. Chest x-ray showed significant improvement in his bilateral infiltrates/aspiration pneumonia. Patient was reevaluated today on 02/28/20, remains in the ICU, intubated and mechanically ventilated. His ventilator settings are assist control rate of 26 FiO2 50% tidal volume of 450 PEEP is at 8 and today I cut down his FiO2 to 45% and kept him on a PEEP of 8. ABG this morning showed a pO2 of 102 pCO2 of 35 pH of 7.45. Patient has significantly elevated sodium today of 150 potassium is low at 2.8 ammonia level remains high at 73. Patient is not requiring any pressors, he is on propofol at 34 mcg/kg/m. Patient is on enteral feeding. I do plan to wean the patient off propofol sometime today, and assess mental status again. This was attempted yesterday, but the patient didn't do well, I have also recommended free water flushes to correct his hyper natremia. The patient is seen today 02/29/2020 in follow-up in the intensive care unit. He remains intubated on mechanical vent. Current settings are assist control at a rate of 26, FiO2 45% tidal volume 450 and a PEEP of 8. Morning blood gases reveal a P O2 of 93, pCO2 of 35 and a pH of 7.47. Chest x-ray reveals stable bilateral atelectasis/infiltrate. He is sedated on propofol at 50 mcg/kg/m. Antibiotics in the form of Zosyn. He remains on IV diuretics. He is tolerating his tube feedings. He remains hypernatremic despite free water. IVs changed to D5W at 75 ML's per hour. Sodium 156. Potassium 2.8. Creatinine 1.32. Glucose 157. White count 10.8. Hemoglobin 8.4. Platelet count 58,000. On 03/01/2020 patient seen in follow-up in the intensive care unit, he remains sedated, intubated on mechanical ventilator, current vent settings are assist control mode of ventilation with a rate of 12, tidal volume is 450, FiO2 45% and PEEP of 5, this morning blood gases show pO2 of 93, pCO2 38, pH of 7.45. Current IV fluids include D5 W5 to 75 ML per hour, and Diprivan at 45 mics per kilo per minute, no vasoactive drips, tube feedings of vital high protein at a rate of 45 with a goal of 45. Today's chest x-ray has been reviewed showing stable appearance of the bibasilar opacities. T-max in the last 24 hours was 99.7F, afebrile this morning, 1 sputum cultures have shown no growth, today's blood work has been reviewed, limits according to 14.0, hemoglobin of 8.0, platelet count is 62, sodium is 159 is on D5W at 75 ML per hour, in addition to free water flushes with 200 mL every 4 hours, patient continues on lactulose and rifaximin, and is having lactulose induced diarrhea and he had 2.4 L in liquid stool output in the last 24 hours. Patient apparently has failed spontaneous breathing trials for last 4 days. We will proceed with a spontaneous awakening and spontaneous breathing trials again today, we will speak to the family about placement of tracheostomy and PEG tube insertion. On 03/02/2020 patient is seen in follow-up in intensive care unit, he remains sedated, intubated on mechanical ventilator, current vent settings are assist- control with a rate of 12, tidal vital 450, FiO2 is 45%, and PEEP of 8, this morning blood gases show pO2 of 113, pCO2 is 34, and pH of 7.47, PEEP has been dropped to 5. IV fluids include D5 W at 125 ML per hour, Diprivan is a 40 mics per kilo per minute, no vasoactive drips, tube feedings are on hold patient was on vital high protein at 45 with a goal of 45 and 400 ML every 4 hours water flushes. Patient was given a sedation holiday yesterday, he never really fully awakened, he was placed on pressure-support of 8, he tolerated it for 3 hours, however there he became predicted, and was placed back on assist control mode of ventilation, yesterday we spoke to the patient's who was a continue with full code CODE STATUS and would like to proceed with tracheostomy and PEG tube placement. Today's chest x-ray has been reviewed and is relatively stable, accounting for technical difficulties, bibasilar opacities and atelectases and pleural effusions. We discontinued patient's Lasix and Aldactone yesterday in view of his hypernatremia, patient continues to have large liquid stool output, 4.7 L in the last 24 hours, continues on lactulose and rifaximin. Yesterday's ammonia level was 44, today it is 47. Today's blood work has been reviewed On 03/03/2020 patient seen in follow-up in the intensive care unit, he remains sedated, on mechanical ventilator, yesterday he had a tracheostomy inserted, this morning he is on assist-control mode of ventilation with a rate of 12, tidal volume is 450, FiO2 is 45%, and PEEP of 5. This morning blood gases show pO2 of 14, pCO2 38, and pH of 7.42. Patient is on IV fluids with D5W at a rate of 125 ML per hour, Diprivan and is at 40 mics per kilo per minute. No vasoactive drips. His feedings are on hold for PEG tube insertion today. Patient is afebrile. Hemodynamically he has been stable, no sedation holiday was given yesterday, the day before patient's addition was held, however patient never fully awakened. Today's labs have been reviewed, showing white blood cell count 19.2, hemoglobin of 8.1, platelet count is 41, INR today is 1.6, sodium is 146, potassium 3.5, chloride is 117, CO2 is 24, BUN 69, creatinine is 0.94. Ammonia level today 62, patient remains on lactulose 40 mg every 8 hours, in addition to Xifaxan. Today's chest x-ray has been reviewed showing left lower lobe pneumonia versus subsegmental atelectasis with a component of interstitial edema. Since diuretics remain on hold regarding hyper nature anemia. Hypernatremia is improving, and his sodium level is 146 today. Blood and sputum culture remains negative. Patient has completed a course of Levaquin. On 03/04/2020 patient seen in follow-up in the intensive care unit. Patient re ann sedated, on mechanical ventilator, currently on assist control mode of ventilation with a rate of 12, tidal volume is 450, FiO2 40%, and PEEP of 5. This morning blood gases showed pO2 of 91, pCO2 35, and pH of 7.43. IV D5W at a rate of 125, and improving and is currently at 25 mics per kilo per minute, yesterday he was given sedation holiday, he started opening his eyes, but not following command, later on apparently he became slightly tachypneic, and was placed back on sedation. Hemodynamically he remains stable, no vasoactive drips this morning, today's labs have been reviewed, showing limits oh, 24.8, hemoglobin is 8.8, sodium is 138, potassium is 2.8, chloride is 111, CO2 is 23, BUN is 55 and creatinine 0.73. Abdomen is soft, liver enzymes show total bilirubin 6.6, AST is 157, ALT is 100, and ammonia level is 42, patient remains on a combination of lactulose and rifaximin. Lung sounds are clear, today's chest x-ray has been reviewed showing significant interval increase in the left basilar airspace disease with consideration for infectious or aspiration pneumonitis. No fever or chills. FiO2 is currently at 40%. Currently not on any antibiotics On 03/05/2020 patient seen in follow-up in the intensive care unit, currently off sedation for last 24 hours, he is opening his eyes he is following command, but he has a severe generalized weakness, he is attempting to squeeze hands on command and nodding head appropriately to questioning. Remains trached to the ventilator, assist control mode of ventilation, with a rate of 12, tidal is 450, FiO2 is 40% and PEEP of 5, this morning blood gases show pO2 of 73, pCO2 31, pH is 7.45. IV fluids 0.9 normal saline at a rate 10, and levothyroid is at 2 mics per minute. No other infusions. Yesterday he had a PEG tube inserted, today we anticipate restarting tube feedings. We will start Lasix IV push every 12 hours , patient has developed significant anasarca. A chest x-ray has been reviewed showing persistent left lower lobe infiltrate, low-grade fever this morning, otherwise patient has been afebrile, pro-calcitonin level came back as 0.16, intermediate range. Clinically patient has been asymptomatic. New sets of blood cultures including sputum urine and blood cultures have been sent, sputum Gram stain showing few epithelial cells, moderate PMNs, and a few budding yeast, final culture is pending. His ammonia level is 45, patient remains on a combination of lactulose and rifaximin. Objective - Vital Signs Vital signs: Vital Signs Temp 99.7 F H 03/05/20 08:00 Pulse 112 H 03/05/20 09:00 Resp 17 03/05/20 09:00 BP 108/54 03/05/20 08:00 Pulse Ox 97 03/05/20 09:00 Intake & Output 03/04/20 03/05/20 03/05/20 18:59 06:59 18:59 Intake Total 448.169 5210.479 39 Output Total 970 745 200 Balance -136.488 923.479 -161 Weight 92 kg 93.2 kg Intake: IV 398 1656 39 0.9 NS 90 120 30 Dextrose 5% in Water 1, 250 000 ml @ 125 mls/hr IV . Q8H [facility] Rx#:[id number] Normal Saline Pressure 33 36 9 Bag Sodium Chloride 0.9% 1, 1000 000 ml @ 999 mls/hr IV . Q1H1M [facility] Rx#:[id number] Sodium Chloride 0.9% 500 500 ml 500 ml @ 999 mls/hr IV .Q31M [facility] Rx#:[id number] Intake, IV Titration 435.512 12.479 Amount Norepinephrine 8 mg In 12.479 Sodium Chloride 0.9% 250 ml @ 0.05 MCG/KG/MIN 8. 872 mls/hr IV .Q24H [facility] Rx#:[id number] Potassium Chloride 20 meq 300 In Water For Injection 1 100ml.bag @ 50 mls/hr IVPB Q2H [facility] Rx#: [id number] Potassium Chloride 20 meq 100 In Water For Injection 1 100ml.bag @ 50 mls/hr IVPB Q2H [facility] Rx#: [id number] Propofol 1,000 mg In 35.512 Empty Bag 1 bag @ Titrate IV .Q0M [facility] Rx#: [id number] Output: Urine 470 745 200 Stool 500 Other: Voiding Method Indwelling Catheter Indwelling Catheter ABP, PAP, CO, CI - Last Documented Arterial Blood Pressure 116/47 - Exam GENERAL EXAM: Awake, following commands 54-year-old white male, trached to the mechanical ventilator, with settings of assist control rate of 12, tidal volume is 450, FiO2 40% and PEEP of 5 comfortable in no apparent distress. HEAD: Normocephalic/atraumatic. EYES: Normal reaction of pupils, equal size. Conjunctiva pink, sclera white. NOSE: Clear with pink turbinates. THROAT: No erythema or exudates. NECK: No masses, no JVD, no thyroid enlargement, no adenopathy. Midline tracheostomy to to the ventilator with assist control mode of ventilation. Midline tracheostomy, this morning patient developed some bleeding around the tracheostomy insertion site, pressure has been held, surgeries aware, we'll continue to monitor, dose of DDAVP has been administered for low platelet. CHEST: No chest wall deformity. Symmetrical expansion. LUNGS: Equal air entry with no crackles, wheeze, rhonchi or dullness. CVS: Regular rate and rhythm, normal S1 and S2, no gallops, no murmurs, no rubs ABDOMEN: Soft, nontender. No hepatosplenomegaly, normal bowel sounds, no guarding or rigidity. Peg tube in place EXTREMITIES: No clubbing, generalized edema, anasarca involving torso, upper and lower extremities no cyanosis, 2+ pulses and upper and lower extremities. MUSCULOSKELETAL: Muscle strength and tone normal. SPINE: No scoliosis or deformity SKIN: No rashes CENTRAL NERVOUS SYSTEM: Awake, trached to the vent. No focal deficits, tone is normal in all 4 extremities. - Labs CBC & Chem 7: 03/05/20 04:18 03/05/20 04:18 Labs: Abnormal Lab Results - Last 24 Hours (Table) 03/04/20 03/04/20 03/04/20 Range/Units 04:50 11:33 14:25 WBC (3.8-10.6) k/uL RBC (4.30-5.90) m/uL Hgb (13.0-17.5) gm/dL Hct (39.0-53.0) % MCV (80.0-100.0) fL MCH (25.0-35.0) pg RDW (11.5-15.5) % Plt Count (150-450) k/uL Neutrophils # (1.3-7.7) k/uL Macrocytosis ABG pCO2 (35-45) mmHg ABG pO2 (83-108) mmHg Potassium 3.4 L (3.5-5.1) mmol/L Chloride (98-107) mmol/L Carbon Dioxide (22-30) mmol/L BUN (9-20) mg/dL Glucose (74-99) mg/dL POC Glucose (mg/dL) 120 H (75-99) mg/dL Calcium (8.4-10.2) mg/dL Total Bilirubin (0.2-1.3) mg/dL AST (17-59) U/L ALT (4-49) U/L Ammonia (<30) umol/L Total Protein (6.3-8.2) g/dL Albumin (3.5-5.0) g/dL Procalcitonin 0.16 H (0.02-0.09) ng/mL 03/04/20 03/04/20 03/05/20 Range/Units 17:41 23:43 04:18 WBC 24.6 H (3.8-10.6) k/uL RBC 2.30 L (4.30-5.90) m/uL Hgb 8.6 L (13.0-17.5) gm/dL Hct 26.3 L (39.0-53.0) % MCV 114.6 H (80.0-100.0) fL MCH 37.3 H (25.0-35.0) pg RDW 21.6 H (11.5-15.5) % Plt Count 37 L (150-450) k/uL Neutrophils # 21.1 H (1.3-7.7) k/uL Macrocytosis Marked A ABG pCO2 (35-45) mmHg ABG pO2 (83-108) mmHg Potassium (3.5-5.1) mmol/L Chloride (98-107) mmol/L Carbon Dioxide (22-30) mmol/L BUN (9-20) mg/dL Glucose (74-99) mg/dL POC Glucose (mg/dL) 105 H 130 H (75-99) mg/dL Calcium (8.4-10.2) mg/dL Total Bilirubin (0.2-1.3) mg/dL AST (17-59) U/L ALT (4-49) U/L Ammonia (<30) umol/L Total Protein (6.3-8.2) g/dL Albumin (3.5-5.0) g/dL Procalcitonin (0.02-0.09) ng/mL 03/05/20 03/05/20 03/05/20 Range/Units 04:18 04:18 04:21 WBC (3.8-10.6) k/uL RBC (4.30-5.90) m/uL Hgb (13.0-17.5) gm/dL Hct (39.0-53.0) % MCV (80.0-100.0) fL MCH (25.0-35.0) pg RDW (11.5-15.5) % Plt Count (150-450) k/uL Neutrophils # (1.3-7.7) k/uL Macrocytosis ABG pCO2 31 L (35-45) mmHg ABG pO2 73 L (83-108) mmHg Potassium (3.5-5.1) mmol/L Chloride 114 H (98-107) mmol/L Carbon Dioxide 21 L (22-30) mmol/L BUN 50 H (9-20) mg/dL Glucose 134 H (74-99) mg/dL POC Glucose (mg/dL) (75-99) mg/dL Calcium 8.2 L (8.4-10.2) mg/dL Total Bilirubin 7.1 H (0.2-1.3) mg/dL AST 195 H (17-59) U/L ALT 120 H (4-49) U/L Ammonia 45 H (<30) umol/L Total Protein 5.7 L (6.3-8.2) g/dL Albumin 2.1 L (3.5-5.0) g/dL Procalcitonin (0.02-0.09) ng/mL 03/05/20 Range/Units 06:00 WBC (3.8-10.6) k/uL RBC (4.30-5.90) m/uL Hgb (13.0-17.5) gm/dL Hct (39.0-53.0) % MCV (80.0-100.0) fL MCH (25.0-35.0) pg RDW (11.5-15.5) % Plt Count (150-450) k/uL Neutrophils # (1.3-7.7) k/uL Macrocytosis ABG pCO2 (35-45) mmHg ABG pO2 (83-108) mmHg Potassium (3.5-5.1) mmol/L Chloride (98-107) mmol/L Carbon Dioxide (22-30) mmol/L BUN (9-20) mg/dL Glucose (74-99) mg/dL POC Glucose (mg/dL) 133 H (75-99) mg/dL Calcium (8.4-10.2) mg/dL Total Bilirubin (0.2-1.3) mg/dL AST (17-59) U/L ALT (4-49) U/L Ammonia (<30) umol/L Total Protein (6.3-8.2) g/dL Albumin (3.5-5.0) g/dL Procalcitonin (0.02-0.09) ng/mL Microbiology - Last 24 Hours (Table) 03/04/20 11:00 Gram Stain - Preliminary Sputum Sputum Culture - Preliminary 03/04/20 10:10 Urine Culture - Preliminary Urine,Catheterized Assessment and Plan Plan: Assessment: Acute hypoxic respiratory failure, suspect aspiration pneumonia. Today's chest x-ray on 03/04/2020 shows a significant interval increase in the left basilar airspace disease with consideration for infectious or aspiration pneumonitis. Pro-calcitonin in the intermediate range, of 0.16, repeat sputum, blood cultures have been sent and are pending at this time. Patient has required prolonged ventilator support, and has received a tracheostomy on 03/02/2020, not PEG tube was inserted on 03/04/2020 Acute sepsis, possible septic shock, patient required pressors, improved, and is currently off pressors. This is related to aspiration pneumonia. Blood cultures and sputum cultures remain negative. Alcohol liver disease with ascites. Jaundice, and elevated liver enzymes. Blood loss anemia, most likely the patient has acute or subacute GI bleeding, GI is following. Hemoglobin has been stable over last several days, no signs of active bleeding at this time Acute hepatic encephalopathy with significantly elevated ammonia level. Today's ammonia level is 45, patient remains on lactulose and rifaximin Recent history of fall about 2 months ago, and multiple right-sided rib fractures. History of alcoholic neuropathy. History of pericarditis Chronic back pain History of restless leg syndrome. Acute kidney injury secondary to sepsis and septic shock. Strongly doubt hepatorenal syndrome. Improved Hypernatremia, related to free water deficit. Improved Thrombocytopenia, multifactorial, possibly related to sepsis and chronic liver disease Plan: Continue with current vent settings, we will start Lasix at 40 mg every 12 hours, reinitiate tube feedings if surgery is okay with that. ProCalcitonin level is in the intermediate range, will await results of the sputum and blood c ultures, patient is afebrile right now, clinically stable, and some bleeding around the tracheostomy site, patient was given a dose of DDAVP, pressure was held, we'll continue to monitor, surgery was made aware. May use morphine IV push to help with the coughing spells to reduce amount of bleeding from around the tracheostomy site. Hemodynamically patient remains stable, today's chest x- ray shows persistence of left basilar infiltrate. We'll diurese the patient. Repeat chest x-ray the morning, repeat labs, we'll continue to closely monitor. I performed a history & physical examination of the patient and discussed their management with my nurse practitioner, Mary Kay Nieto. I reviewed the nurse practitioner's note and agree with the documented findings and plan of care. Lung sounds are positive for diminished breath sounds. The findings and the impression was discussed with the patient. I attest to the documentation by the nurse practitioner. Time with Patient: Greater than 30
[2020-03-05] MEDS: LACTULOSE 20 GM/30 ML CUP PO SCH ×3 (09:58→22:00)
[2020-03-05] MEDS: RIFAXIMIN 550 MG TABLET PO SCH ×2 (09:59→20:47)
[2020-03-05] MEDS: FUROSEMIDE 10 MG/ML 4 ML VIAL IV SCH ×2 (09:59→20:45)
[2020-03-05] MEDS: PANTOPRAZOLE 40 MG/10 ML VIAL IVP SCH ×2 (09:59→20:44)
--- NOTE | 2020-03-05 10:05 | XR ---
EXAMINATION TYPE: XR chest 1V [facility] DATE OF EXAM: 03/05/2020 HISTORY: Line placement COMPARISON: 03/05/2020 TECHNIQUE: Single view of the chest is submitted. FINDINGS: Tracheostomy tube is appropriately placed. Left subclavian central venous line with its distal tip in the right atrium. No evidence for pneumothorax. Left basilar infiltrate and/or atelectasis. Small effusion difficult to exclude. Pulmonary venous con gestion suggested. The heart is stable. Hilar and mediastinal structures are within normal limits. Degenerative changes are seen of the dorsal spine. IMPRESSION: 1. Line placement as above.
--- NOTE | 2020-03-05 10:16 | PN ---
PROGRESS NOTE DATE OF DICTATION: 03/05/2020 Patient is a 54-year-old white male with history of alcoholic cirrhosis of the liver and acute alcoholic hepatitis and aspiration pneumonia with acute respiratory failure. Remains in the intensive care unit with a trach and PEG and remains relatively stable. No acute events noted overnight, as per the nursing staff. PHYSICAL EXAMINATION: Remain sedated on the vent. VITAL SIGNS: Blood pressure 92/56, pulse rate 75, temperature 98.1. HEENT: Examination unremarkable, conjunctivae are pink, sclerae nonicteric, oral cavity no lesions. NECK: No JVD or lymph node enlargement. CHEST: Clear to auscultation. HEART: Regular rate and rhythm. ABDOMEN: Slightly distended. PEG tube in place. EXTREMITIES: No pedal edema/ NEURO: Sedated. FMS in place, has about 400 mL of liquid stool. LABS: From today WBC 24.6, hemoglobin 8.6, platelets 37,000. BUN 50, creatinine 0.85, T-bili 7.1. AST and ALT 120and 93 respectively, alk phos is 93. IMPRESSION: 1. Acute respiratory failure secondary to aspiration pneumonia. Status post trach and PEG done yesterday. Remains on broad-spectrum antibiotics and on the vent. 2. Acute alcoholic hepatitis with alcoholic cirrhosis of the liver and portal hypertension. 3. Status post EGD and PEG tube placement by Dr. Abraham yesterday. 4. Hepatic encephalopathy with ammonia level of 45. RECOMMENDATIONS: 1. Continue with broad-spectrum antibiotics. 2. Continue with symptomatic and supportive care by the cad librarian. 3. Continue Xifaxan and oral lactulose. 4. Monitor labs closely. 5. Will follow with you. Thank you for this consultation. MMODL / IJN: [id number] /
[2020-03-05] MEDS: MORPHINE SULFATE 2 MG/ML SYRINGE IVP PRN ×3 (10:36→20:45)
[2020-03-05 11:46] LABS: Glucose,Whole Blood 121 mg/dL (75-99)
--- NOTE | 2020-03-05 14:07 | P.PN ---
Subjective Progress Note Date: 03/05/20 This is a 54-year-old gentleman, history of polysubstance abuse including alcohol abuse , falls with recent rib fractures, legally blind, osteoarthritis and multiple other medical issues presented to the ER with changes in mental status 2 days. Drug screen positive for tricyclics and benzos, serum alcohol less than 10. UA reported dark brown cloudy urine with occasional bacteria, hyaline casts, 2 WBCs, trace leukocytes, 4+ bilirubin, negative for nitrates. Ammonia level 91, T bili 14.9, currently 15.8 , elevated LFTs .Gallbladder ultrasound reporting abdominal ascites, abdominal x-ray nonacute, right foot x- ray reported no fracture, soft tissue swelling, EKG reported sinus tachycardia, troponin normal, BNP 910, echo reported normal LV function, EF 60-65% ,lactic acid 2.1 now down to 1.7, BUN 25, creatinine 0.8 chest x-ray reporting moderate pulmonary interstitial and airspace edema significantly worse than yesterday, pulmonary edema. ABGs noted. INR on admission 3.7, down to 2.2 Sepsis protocol, Received IV fluid resuscitation, IV antibiotics, cultures drawn. Developed respiratory failure, requiring intubation during the night. Currently on Sandostatin drip. 3 maroon stools during the night. Received 4 units of FFP and 2 units of packed RBCs to date. Hemoglobin currently 8.5. And had required pressor support with Levophed off since . Maintained on IV fluid resuscitation. Telemetry sinus rhythm. Potassium 3.2, magnesium 1.7. 02/24/2020 chest x-ray reporting persistent bilateral scattered airspace infiltrates, pleural effusion unchanged. Ventilator dependent, on FiO2 of 50 with PEEP increased to 12. Continues on lactulose with ammonia down to 80. T bili decreased to 11.3, LFTs improving. No further maroon stools. Small black stool this morning. Hemoglobin 8.6. Telemetry sinus rhythm to sinus tach. Sandostatin drip discontinued this morning. Last night patient asynchronous with vent, stacking breaths, Nimbex drip initiated. This morning Nimbex discontinued, changed to fentanyl drip. Requiring pressor support, Levophed resumed. Received vitamin K yesterday, INR 2.1. Marginal urine output, IV fluids decreased, and Lasix IV push added to med regime. Tube feedings ordered. Afebrile, WBC 14.7. Sputum culture pending, preliminary blood cultures negative at 48 hours. ABGs noted. 02/25/2020 yesterday Lasix and Aldactone initiated, creatinine mildly worsened up to 1.32. Ammonia increased up to 89, lactulose increased. No further maroon stools, hemoglobin increased to 9.4, platelets increased to 75. T bili trending down, 8.9, LFTs improving. Potassium 3.4. Chest x-ray reporting improving left lower lobe aeration. Right foot evaluated by orthopedic surgery, possible fluid collection, seroma with potential x-ray tomorrow. Tolerating tube feeds with minimal to no residuals, currently at 30 mls per hour with goal of 45. IV steroids added to med regimen with blood sugars increasing. Remains vent dependent with FiO2 at 50/+12 of PEEP. Continues on Levophed, fentanyl, diprovan drips. Afebrile, T-max 99.5, WBC 14.1. 02/26/2020 ABGs unchanged,remains vent dependent, FiO2 50/+12 PEEP. Chest x-ray reporting improvement. Maintained on both Xifaxan & Lactulose, ammonia increasing, beginning to stool. Creatinine trending up 1.4. Hemoglobin decreased to 8.5. INR 1.7 Levophed weaned off this morning. Attempted a sedation holiday for about an hour this morning; patient did not wake up, became agitated, tachycardic, tachypneic with respiratory rate up into the 40s, diprovan/fentanyl drips resumed. Tolerating tube feeds at 40 with goal of 45/minimal to no residual. Orthopedics discussing x-ray and foot possibly tomorrow. Afebrile WBC down to 11. 03/03/2020 patient was trached yesterday, remains vent dependent with FiO2 45%/+5 of PEEP. Chest x-ray suggestive of possible left lower lobe pneumonia, v ersus atelectasis, possible interstitial disease. Scheduled for PEG tube placement today. To date, patient has not tolerated sedation holidays, not following commands, becomes agitated, and becomes asynchronous with the patient. Neurology consulted, EEG completed, results pending. Maintain on D5W with improvement in sodium, Na 146. Currently sedated on Diprovan gtt. telemetry sinus rhythm. Ammonia level LII on lactulose and Xifaxan. 03/04/2020 EGD with PEG tube placement completed at bedside this morning, tolerated procedure well. Like gastroesophageal reflux reported along the anterior abdominal wall. Evaluated by neurology with recommendations noted and appreciated. EEG completed yesterday reporting abnormal, background slowing ,suggestive of generalized cerebral dysfunction seen with toxic metabolic encephalopathy related to diffuse structural brain abnormality, no obvious epileptiform activity seen. Afebrile, WBC continues trending up, currently 24.8, recultured. During sedation holiday patient noted to spontaneously move his right hand, half open his eyes responding to his name. Diprovan has been weaned off this morning. Remains vent dependent with FiO2 40%/+5 of PEEP. Chest x-ray reporting significant interval increase in left basilar airspace disease, possible infectious or aspiration pneumonitis. Ammonia level 42. Receiving potassium supplements for potassium 2.8. Sodium continues improving, 138. 03/05/2020 Remains off sedation X 24 hrs, sensorium slowly improving. Following simple commands ;Opens eyes to name, shakes head yes and no to simple questions. Sinus tachycardia with heart rate in the 110s. Chest x-ray reporting persistent left lower lobe infiltrate, IV push Lasix every 12h initiated. Vent dependent, maintained on FiO2 40%/+5 of PEEP. Significant anasarca. Yesterday PEG tube placed, did not receive any lactulose-current ammonia level 45. Bleeding around tracheostomy site, controlled with multiple packs of gauze, DDAVP. Hemoglobin 8.6, platelets 37 New central line and art line placed. Levophed currently off. T-max 99.7, WBC unchanged 24.6, recultured yesterday, cultures pending.Na 140. Objective - Vital Signs Vital signs: Vital Signs Temp 98.9 F 03/05/20 12:00 Pulse 102 H 03/05/20 13:15 Resp 22 03/05/20 13:15 BP 138/71 03/05/20 11:15 Pulse Ox 96 03/05/20 13:15 Intake & Output 03/04/20 03/05/20 03/05/20 18:59 06:59 18:59 Intake Total 647.385 2363.479 102.468 Output Total 970 745 880 Balance -136.488 923.479 -777.532 Weight 92 kg 93.2 kg Intake: IV 398 1656 87 0.9 NS 90 120 60 Dextrose 5% in Water 1, 250 000 ml @ 125 mls/hr IV . Q8H [facility] Rx#:[id number] Normal Saline Pressure 33 36 27 Bag Sodium Chloride 0.9% 1, 1000 000 ml @ 999 mls/hr IV . Q1H1M [facility] Rx#:[id number] Sodium Chloride 0.9% 500 500 ml 500 ml @ 999 mls/hr IV .Q31M [facility] Rx#:[id number] Intake, IV Titration 435.512 12.479 15.468 Amount Norepinephrine 8 mg In 12.479 15.468 Sodium Chloride 0.9% 250 ml @ 0.05 MCG/KG/MIN 8. 872 mls/hr IV .Q24H [facility] Rx#:[id number] Potassium Chloride 20 meq 300 In Water For Injection 1 100ml.bag @ 50 mls/hr IVPB Q2H [facility] Rx#: [id number] Potassium Chloride 20 meq 100 In Water For Injection 1 100ml.bag @ 50 mls/hr IVPB Q2H [facility] Rx#: [id number] Propofol 1,000 mg In 35.512 Empty Bag 1 bag @ Titrate IV .Q0M [facility] Rx#: [id number] Output: Urine 470 745 880 Stool 500 Other: Voiding Method Indwelling Catheter Indwelling Catheter Indwelling Catheter ABP, PAP, CO, CI - Last Documented Arterial Blood Pressure 139/45 - Exam VITAL SIGNS: As above GENERAL: Sitting up in bed, intubated, off of sedation, appears comfortable HEENT: Conjunctivae normal. Positive icterus, jaundice NECK: No JVD. No thyroid enlargement. No LNs. Midline tracheostomy, surrounding dressing with sanguinous drainage CARDIOVASCULAR: S1, S2 regular. Systolic murmur RESPIRATION: Clear, with no rhonchi, crackles or wheezing. ABDOMEN: Soft, distended, positive bowel sounds. PEG tube present. Scrotal edema Extremities: Positive upper and lower extremity edema, no clubbing, no cyanosis. Right foot dorsal edema with ecchymosis wearing boot. NERVOUS SYSTEM: Unable to assess, on mechanical ventilation.Appears to be following simple commands Skin: Warm and dry, no rash - Labs CBC & Chem 7: 03/05/20 04:18 03/05/20 04:18 Labs: Abnormal Lab Results - Last 24 Hours (Table) 03/04/20 03/04/20 03/04/20 Range/Units 04:50 14:25 17:41 WBC (3.8-10.6) k/uL RBC (4.30-5.90) m/uL Hgb (13.0-17.5) gm/dL Hct (39.0-53.0) % MCV (80.0-100.0) fL MCH (25.0-35.0) pg RDW (11.5-15.5) % Plt Count (150-450) k/uL Neutrophils # (1.3-7.7) k/uL Macrocytosis ABG pCO2 (35-45) mmHg ABG pO2 (83-108) mmHg Potassium 3.4 L (3.5-5.1) mmol/L Chloride (98-107) mmol/L Carbon Dioxide (22-30) mmol/L BUN (9-20) mg/dL Glucose (74-99) mg/dL POC Glucose (mg/dL) 105 H (75-99) mg/dL Calcium (8.4-10.2) mg/dL Total Bilirubin (0.2-1.3) mg/dL AST (17-59) U/L ALT (4-49) U/L Ammonia (<30) umol/L Total Protein (6.3-8.2) g/dL Albumin (3.5-5.0) g/dL Procalcitonin 0.16 H (0.02-0.09) ng/mL 03/04/20 03/05/20 03/05/20 Range/Units 23:43 04:18 04:18 WBC 24.6 H (3.8-10.6) k/uL RBC 2.30 L (4.30-5.90) m/uL Hgb 8.6 L (13.0-17.5) gm/dL Hct 26.3 L (39.0-53.0) % MCV 114.6 H (80.0-100.0) fL MCH 37.3 H (25.0-35.0) pg RDW 21.6 H (11.5-15.5) % Plt Count 37 L (150-450) k/uL Neutrophils # 21.1 H (1.3-7.7) k/uL Macrocytosis Marked A ABG pCO2 (35-45) mmHg ABG pO2 (83-108) mmHg Potassium (3.5-5.1) mmol/L Chloride 114 H (98-107) mmol/L Carbon Dioxide 21 L (22-30) mmol/L BUN 50 H (9-20) mg/dL Glucose 134 H (74-99) mg/dL POC Glucose (mg/dL) 130 H (75-99) mg/dL Calcium 8.2 L (8.4-10.2) mg/dL Total Bilirubin 7.1 H (0.2-1.3) mg/dL AST 195 H (17-59) U/L ALT 120 H (4-49) U/L Ammonia (<30) umol/L Total Protein 5.7 L (6.3-8.2) g/dL Albumin 2.1 L (3.5-5.0) g/dL Procalcitonin (0.02-0.09) ng/mL 03/05/20 03/05/20 03/05/20 Range/Units 04:18 04:21 06:00 WBC (3.8-10.6) k/uL RBC (4.30-5.90) m/uL Hgb (13.0-17.5) gm/dL Hct (39.0-53.0) % MCV (80.0-100.0) fL MCH (25.0-35.0) pg RDW (11.5-15.5) % Plt Count (150-450) k/uL Neutrophils # (1.3-7.7) k/uL Macrocytosis ABG pCO2 31 L (35-45) mmHg ABG pO2 73 L (83-108) mmHg Potassium (3.5-5.1) mmol/L Chloride (98-107) mmol/L Carbon Dioxide (22-30) mmol/L BUN (9-20) mg/dL Glucose (74-99) mg/dL POC Glucose (mg/dL) 133 H (75-99) mg/dL Calcium (8.4-10.2) mg/dL Total Bilirubin (0.2-1.3) mg/dL AST (17-59) U/L ALT (4-49) U/L Ammonia 45 H (<30) umol/L Total Protein (6.3-8.2) g/dL Albumin (3.5-5.0) g/dL Procalcitonin (0.02-0.09) ng/mL 03/05/20 Range/Units 11:44 WBC (3.8-10.6) k/uL RBC (4.30-5.90) m/uL Hgb (13.0-17.5) gm/dL Hct (39.0-53.0) % MCV (80.0-100.0) fL MCH (25.0-35.0) pg RDW (11.5-15.5) % Plt Count (150-450) k/uL Neutrophils # (1.3-7.7) k/uL Macrocytosis ABG pCO2 (35-45) mmHg ABG pO2 (83-108) mmHg Potassium (3.5-5.1) mmol/L Chloride (98-107) mmol/L Carbon Dioxide (22-30) mmol/L BUN (9-20) mg/dL Glucose (74-99) mg/dL POC Glucose (mg/dL) 121 H (75-99) mg/dL Calcium (8.4-10.2) mg/dL Total Bilirubin (0.2-1.3) mg/dL AST (17-59) U/L ALT (4-49) U/L Ammonia (<30) umol/L Total Protein (6.3-8.2) g/dL Albumin (3.5-5.0) g/dL Procalcitonin (0.02-0.09) ng/mL Microbiology - Last 24 Hours (Table) 03/04/20 10:10 Urine Culture - Preliminary Urine,Catheterized Yeast species 03/04/20 11:00 Gram Stain - Preliminary Sputum Sputum Culture - Preliminary Melisa albicans Assessment and Plan Assessment: Sepsis secondary to aspiration bilateral pneumonia, possibly abdominal source, Acute hypoxic respiratory failure, related to the above, ventilator dependent, failure to wean, status post tracheostomy. Septic and hypovolemic shock multifactorial, secondary to bilateral aspiration pneumonia, alcoholic liver disease Septic shock status post pressor support Hypotension, secondary to the above, pressor support dependent secondary to sepsis Acute renal failure multifactorial, secondary to all the above, diuretics Acute GI bleed, possible esophageal varices in a patient with significant a lcohol dependence, on Sandostatin Acute blood loss anemia, status post multiple transfusions of both FFP, packed RBCs Acute Hepatic encephalopathy Possible acute toxic, metabolic encephalopathy Alcoholic liver disease with ascites Hyperammonia Recent posterior lateral rib fractures of 9, 10 and 11 status post fall History of pericarditis Chronic back pain Polysubstance abuse, per record review; patient reports alcohol, marijuana use currently. History of nicotine dependence COPD, emphysema Legally blind Obesity, BMI 30.7 Osteoarthritis Venous insufficiency Anxiety, depression, history of, currently controlled Hyperglycemia, steroid-induced Moderate protein calorie malnutrition Hypernatremia secondary free water deficit, resolved Status post PEG tube placement Hypokalemia Plan: Continue on current medication regime ,monitoring and symptomatic treatment. Close monitoring of coag's ,bleeding around tracheostomy site, post DDAVP. Follow closely repeated cultures. Diuretics.maintain lactulose, Xifaxan, close monitoring of ammonia level . Select specialty possibly at discharge. Prognosis guarded given multiple complex medical issues. The impression and plan of care has been dictated as directed. : I performed a history and examination of this patient, discussed the same with the dictator. I agree with the dictator's note ,documented as a scribe. Any additional findings or plans will be noted.
--- NOTE | 2020-03-05 17:10 | PCN ---
PROCEDURE NOTE PROCEDURE: Placement of left subclavian triple-lumen catheter. Indication: Hemodynamic monitoring/Intravenous access PREOPERATIVE DIAGNOSIS: Administration of fluids and pressors. POSTOPERATIVE DIAGNOSIS: Administration of fluids and pressors. A time-out was completed verifying correct patient, procedure, site, positioning, and implant(s) or special equipment if applicable. The patient was placed in a dependent position appropriate for triple-lumen catheter placement based on the vein to be cannulated. The patient's left shoulder was prepped and draped in sterile fashion. 1% Lidocaine was used to anesthetize the surrounding skin area. A triple-lumen 9F Cordis catheter was introduced into the subclavian vein using Seldinger technique. The catheter was threaded smoothly over the guidewire and appropriate blood return was obtained. Each lumen of the catheter was evacuated of air and flushed with sterile saline. The catheter was then sutured in place to the skin and a sterile dressing applied. Perfusion to the extremity distal to the point of catheter insertion was checked and found to be adequate. There was no immediate complication. The left subclavian site was used. Dr. Kee was the wastewater treatment plant operator. Chest x-ray was ordered. The tip of the tube was seen in the junction of superior vena cava and right atrium. There was good blood return from all 3 ports. The catheter was sutured in place. Sterile dressing was applied by the nurse. MMCUATEL / GENETN: [id number] /
--- NOTE | 2020-03-05 17:10 | PCN ---
PROCEDURE NOTE PROCEDURE: Left radial arterial line. OPERATORS: Dr. Kee and Emelyn Nieto. PREOPERATIVE DIAGNOSIS: Frequent blood draws and blood gas monitoring POSTOPERATIVE DIAGNOSIS: Frequent blood draws and blood gas monitoring A time-out was completed verifying correct patient, procedure, site, positioning, and implant(s) or special equipment if applicable. Swapnil's test was performed to ensure adequate perfusion. The patient's left wrist was prepped and draped in sterile fashion. 1% Lidocaine was used to anesthetize the area. An 18G Arrow arterial line was introduced into the radial artery. The catheter was threaded over the guide wire and the needle was removed with appropriate pulsatile blood return. Blood loss was minimal. The catheter was then sutured in place to the skin and a sterile dressing applied by the nurse. Perfusion to the extremity distal to the point of catheter insertion was checked and found to be adequate. There was good waveform and blood pressure reading. The patient tolerated the procedure well. There was no complications. MMODL / IJN: [id number] /
[2020-03-05] MEDS ORDERED: ANIDULAFUNGIN 200 MG in SODIUM CHLORIDE 0.9% 200 ML IVPB ONE (17:27)
[2020-03-05 18:02] LABS: Glucose,Whole Blood 150 mg/dL (75-99)
[2020-03-05 23:28] LABS: Glucose,Whole Blood 167 mg/dL (75-99)
[2020-03-06] MEDS: MORPHINE SULFATE 2 MG/ML SYRINGE IVP PRN ×5 (00:08→20:36)
[2020-03-06] MEDS: NOREPINEPHRINE 8 MG in SODIUM CHLORIDE 0.9% 250 ML IV SCH ×2 (01:37→21:48)
[2020-03-06] MEDS: IPRATROPIUM-ALBUTEROL 3 ML NEB INHALATION SCH ×7 (03:59→23:39)
[2020-03-06 05:07] LABS: ABG Base Excess -0.8 mmol/L; ABG HCO3 23 mmol/L (21-25); ABG PCO2 33 mmHg (35-45); ABG PH 7.45 (7.35-7.45); ABG PO2 79 mmHg (83-108); ABG TCO2 24 mmol/L (19-24); Allen Test Performed? Yes
[2020-03-06 05:33] LABS: INR 1.5 (<1.2); Prothrombin Time 14.9 sec (9.0-12.0)
[2020-03-06 05:45] LABS: ALT 114 U/L (4-49); AST 172 U/L (17-59); African American GFR (CKD) >90 (>60 ml/min/1.73 sqM); Albumin 2.1 g/dL (3.5-5.0); Alkaline Phosphatase 111 U/L (38-126); Anion Gap 2 mmol/L; Blood Urea Nitrogen 47 mg/dL (9-20); Calcium 8.3 mg/dL (8.4-10.2); Carbon Dioxide 24 mmol/L (22-30); Chloride 118 mmol/L (98-107); Glucose 157 mg/dL (74-99); Non-African American GFR(CKD) >90 (>60 ml/min/1.73 sqM); Potassium 3.2 mmol/L (3.5-5.1); Sodium 144 mmol/L (137-145); Total Bilirubin 6.9 mg/dL (0.2-1.3); Total Protein 5.5 g/dL (6.3-8.2)
[2020-03-06 05:57] LABS: Anisocytosis Moderate; HCT 23.7 % (39.0-53.0); HGB 7.5 gm/dL (13.0-17.5); Hypochromasia Moderate; MCH 37.1 pg (25.0-35.0); MCHC 31.6 g/dL (31.0-37.0); MCV 117.3 fL (80.0-100.0); Macrocytosis Marked; Mean Platelet Volume 15.6; RBC 2.02 m/uL (4.30-5.90); RDW 22.2 % (11.5-15.5); WBC 25.2 k/uL (3.8-10.6)
[2020-03-06 05:58] LABS: Platelet Count 41 k/uL (150-450)
[2020-03-06 06:02] LABS: Glucose,Whole Blood 188 mg/dL (75-99)
[2020-03-06] MEDS: POTASSIUM CHLORIDE 20 MEQ in WATER FOR INJECTION 1 100ML.BAG IVPB SCH ×2 (06:10→08:28)
[2020-03-06] MEDS: INSULIN ASPART (NovoLOG) 100 UNIT/ML VIAL SQ SCH ×3 (06:11→18:23)
[2020-03-06 06:43] LABS: Lymphocytes # (M) 0.76 k/uL (1.0-4.8); Monocytes # (M) 0.25 k/uL (0-1.0); Neutrophils # (M) 24.19 k/uL (1.3-7.7); Neutrophils % (M) 96 %; Nucleated Red Blood Cells 0 /100 WBC (0-0); Total Cells Counted 100
--- NOTE | 2020-03-06 07:29 | XR ---
EXAMINATION TYPE: XR chest 1V portable DATE OF EXAM: 03/06/2020 HISTORY: Shortness of breath. COMPARISON: 03/05/2020 TECHNIQUE: Single view of the chest is submitted. FINDINGS: Tracheostomy tube and left subclavian central venous line noted to be unchanged. Persistent left basi lar infiltrate and pleural effusion. Pulmonary venous congestion. The heart is stable. Hilar and mediastinal structures are within normal limits. Degenerative changes are seen of the dorsal spine. IMPRESSION: 1. Stable chest.
[2020-03-06] MEDS: PANTOPRAZOLE 40 MG/10 ML VIAL IVP SCH ×2 (08:28→20:12)
[2020-03-06] MEDS: RIFAXIMIN 550 MG TABLET PO SCH ×2 (08:28→20:29)
[2020-03-06] MEDS: LACTULOSE 20 GM/30 ML CUP PO SCH ×3 (08:29→21:20)
[2020-03-06] MEDS: FUROSEMIDE 10 MG/ML 4 ML VIAL IV SCH ×2 (08:29→20:29)
[2020-03-06] MEDS: CHLORHEXIDINE GLUCONATE 15 ML CUP MUCOUS MEM SCH ×2 (08:29→20:29)
--- NOTE | 2020-03-06 10:28 | P.PN ---
Subjective Progress Note Date: 03/06/20 Principal diagnosis: Acute hypoxic respiratory failure secondary to acute aspiration pneumonia, acute sepsis The patient is seen today 03/06/2020 in follow-up in the intensive care unit. He remains minimally responsive. He is off sedation. He is status post trach and PEG tube placements. He remains on mechanical ventilator current settings assist-control with a rate of 12, tidal volume 450, FiO2 40% and a PEEP of 5. Morning blood gases reveal a pO2 79, pCO2 33, pH 7.45. Norepinephrine has been off. He has 0.9 at 10 MLS per hour. Being nourished with Marcelo Piette 30 ML's per hour which is goal. He is continued on Eraxis. He remains on Lasix 40 mg IV every 12 hours. Currently in a negative balance. SMS remains in place with copious amounts of liquid stool. Ammonia level is down to 45. AST 172. ALT 114. Sodium 144. Potassium 3.2. Chloride 118. Bicarb 24. Creatinine 0.90. White count 25.2. Hemoglobin 7.5. MCV 117. INR 1.5. Objective - Vital Signs Vital signs: Vital Signs Temp 99.8 F H 03/06/20 08:00 Pulse 112 H 03/06/20 09:00 Resp 22 03/06/20 09:00 BP 114/63 03/05/20 14:15 Pulse Ox 98 03/06/20 09:00 Intake & Output 03/05/20 03/06/20 03/06/20 18:59 06:59 18:59 Intake Total 216.414 922 258 Output Total 1445 1473 850 Balance -1228.586 -551 -592 Weight 93.2 kg 90.6 kg Intake: IV 180 442 48 0.9 NS 120 110 30 Anidulafungin 200 mg In 260 Sodium Chloride 0.9% 200 ml @ 84 mls/hr IVPB ONCE ONE Rx#:[id number] Normal Saline Pressure 60 72 18 Bag Intake, IV Titration 16.414 50 Amount Norepinephrine 8 mg In 16.414 Sodium Chloride 0.9% 250 ml @ 0.05 MCG/KG/MIN 8. 872 mls/hr IV .Q24H [facility] Rx#:[id number] Potassium Chloride 20 meq 50 In Water For Injection 1 100ml.bag @ 50 mls/hr IVPB Q2H [facility] Rx#: [id number] Tube Feeding 20 180 60 Other 300 100 Output: Urine 1445 1473 250 Stool 600 Other: Voiding Method Indwelling Catheter Indwelling Catheter ABP, PAP, CO, CI - Last Documented Arterial Blood Pressure 129/52 - Exam GENERAL EXAM: On mechanical ventilator, minimally responsive 54-year-old gentleman, comfortable in no apparent distress. HEAD: Normocephalic. EYES: Normal reaction of pupils, equal size. NOSE: Clear with pink turbinates. THROAT: Tracheostomy tube secured in place. NECK: No masses, no JVD. CHEST: No chest wall deformity. LUNGS: Equal air entry with crackles at the bilateral posterior bases. CVS: S1 and S2 normal with no audible murmur, regular rhythm. ABDOMEN: PEG tube exit site clean and dry, normal bowel sounds, no guarding or rigidity. SPINE: No scoliosis or deformity SKIN: No rashes CENTRAL NERVOUS SYSTEM: Sedated, tone is normal in all 4 extremities. EXTREMITIES: There is 1-2+ peripheral edema. No clubbing, no cyanosis. Peripheral pulses are intact. - Labs CBC & Chem 7: 03/06/20 04:41 03/06/20 04:41 Labs: Abnormal Lab Results - Last 24 Hours (Table) 03/05/20 03/05/20 03/05/20 Range/Units 11:44 18:01 23:26 WBC (3.8-10.6) k/uL RBC (4.30-5.90) m/uL Hgb (13.0-17.5) gm/dL Hct (39.0-53.0) % MCV (80.0-100.0) fL MCH (25.0-35.0) pg RDW (11.5-15.5) % Plt Count (150-450) k/uL Neutrophils # (Manual) (1.3-7.7) k/uL Lymphocytes # (Manual) (1.0-4.8) k/uL Macrocytosis PT (9.0-12.0) sec INR (<1.2) ABG pCO2 (35-45) mmHg ABG pO2 (83-108) mmHg Potassium (3.5-5.1) mmol/L Chloride (98-107) mmol/L BUN (9-20) mg/dL Glucose (74-99) mg/dL POC Glucose (mg/dL) 121 H 150 H 167 H (75-99) mg/dL Calcium (8.4-10.2) mg/dL Total Bilirubin (0.2-1.3) mg/dL AST (17-59) U/L ALT (4-49) U/L Ammonia (<30) umol/L Total Protein (6.3-8.2) g/dL Albumin (3.5-5.0) g/dL 03/06/20 03/06/20 03/06/20 Range/Units 04:41 04:41 04:41 WBC 25.2 H (3.8-10.6) k/uL RBC 2.02 L (4.30-5.90) m/uL Hgb 7.5 L (13.0-17.5) gm/dL Hct 23.7 L (39.0-53.0) % MCV 117.3 H (80.0-100.0) fL MCH 37.1 H (25.0-35.0) pg RDW 22.2 H (11.5-15.5) % Plt Count 41 L (150-450) k/uL Neutrophils # (Manual) 24.19 H (1.3-7.7) k/uL Lymphocytes # (Manual) 0.76 L (1.0-4.8) k/uL Macrocytosis Marked A PT (9.0-12.0) sec INR (<1.2) ABG pCO2 (35-45) mmHg ABG pO2 (83-108) mmHg Potassium 3.2 L (3.5-5.1) mmol/L Chloride 118 H (98-107) mmol/L BUN 47 H (9-20) mg/dL Glucose 157 H (74-99) mg/dL POC Glucose (mg/dL) (75-99) mg/dL Calcium 8.3 L (8.4-10.2) mg/dL Total Bilirubin 6.9 H (0.2-1.3) mg/dL AST 172 H (17-59) U/L ALT 114 H (4-49) U/L Ammonia 45 H (<30) umol/L Total Protein 5.5 L (6.3-8.2) g/dL Albumin 2.1 L (3.5-5.0) g/dL 03/06/20 03/06/20 03/06/20 Range/Units 04:41 05:05 06:00 WBC (3.8-10.6) k/uL RBC (4.30-5.90) m/uL Hgb (13.0-17.5) gm/dL Hct (39.0-53.0) % MCV (80.0-100.0) fL MCH (25.0-35.0) pg RDW (11.5-15.5) % Plt Count (150-450) k/uL Neutrophils # (Manual) (1.3-7.7) k/uL Lymphocytes # (Manual) (1.0-4.8) k/uL Macrocytosis PT 14.9 H (9.0-12.0) sec INR 1.5 H (<1.2) ABG pCO2 33 L (35-45) mmHg ABG pO2 79 L (83-108) mmHg Potassium (3.5-5.1) mmol/L Chloride (98-107) mmol/L BUN (9-20) mg/dL Glucose (74-99) mg/dL POC Glucose (mg/dL) 188 H (75-99) mg/dL Calcium (8.4-10.2) mg/dL Total Bilirubin (0.2-1.3) mg/dL AST (17-59) U/L ALT (4-49) U/L Ammonia (<30) umol/L Total Protein (6.3-8.2) g/dL Albumin (3.5-5.0) g/dL Microbiology - Last 24 Hours (Table) 03/04/20 11:00 Gram Stain - Final Sputum Sputum Culture - Final Melisa albicans Melisa glabrata 03/04/20 10:10 Urine Culture - Final Urine,Catheterized Melisa albicans 03/05/20 10:08 Catheter Tip Culture - Preliminary Catheter Tip 03/05/20 10:08 Catheter Tip Culture - Preliminary Catheter Tip 03/04/20 14:25 Blood Culture - Preliminary Blood No Growth after 24 hours 03/04/20 14:45 Blood Culture - Preliminary Blood No Growth after 24 hours Assessment and Plan Assessment: Acute hypoxic respiratory failure, suspect aspiration pneumonia, inability to wean, status post tracheostomy tube placement post PEG tube placement, off sedation minimally responsive Acute sepsis, possible septic shock, patient required pressors which have since been discontinued. likely source is aspiration pneumonia, although abdominal source is not entirely ruled out. Blood cultures negative and sputum cultures with Melisa Alcohol liver disease with ascites. Jaundice, and elevated liver enzymes. Blood loss anemia, most likely the patient has acute or subacute GI bleeding, GI is following. Acute hepatic encephalopathy with significantly elevated ammonia level. Slightly increased today compared to yesterday, it is 73. Recent history of fall about 2 months ago, and multiple right-sided rib fractures. History of alcoholic neuropathy. History of pericarditis Chronic back pain History of restless leg syndrome. Acute kidney injury secondary to sepsis and septic shock. Strongly doubt hepatorenal syndrome. Plan The patient was seen and evaluated by Dr. Kee Chest x-ray, ABGs and labs reviewed Remains off sedation Currently off pressors Continue nutritional support Continue the current medications Condition remains quite guarded and poor Referral to select specialty for long-term weaning We'll continue to follow Critical care time 38 minutes I, the cosigning physician, performed a history & physical examination of the patient. Lungs sounds with crackles in the bilateral posterior bases. Maint aining good O2 saturations in the 90s on 40% FiO2 via the mechanical ventilator. I discussed the assessment and plan of care with my nurse practitioner, Pallavi Gunter. I attest to the above note as dictated by her. Time with Patient: Greater than 30
[2020-03-06] MEDS ORDERED: CISATRACURIUM 2 MG/ML 5 ML VIAL IV ONE (10:51)
[2020-03-06] MEDS: CISATRACURIUM 2 MG/ML 5 ML VIAL IV ONE (10:55)
[2020-03-06 11:00] LABS: Anisocytosis Moderate; HCT 23.1 % (39.0-53.0); HGB 7.3 gm/dL (13.0-17.5); Hypochromasia Marked; MCH 37.3 pg (25.0-35.0); MCHC 31.6 g/dL (31.0-37.0); Macrocytosis Marked; Mean Platelet Volume 15.3; RBC 1.96 m/uL (4.30-5.90); RDW 22.2 % (11.5-15.5)
[2020-03-06 11:01] LABS: Platelet Count 45 k/uL (150-450)
[2020-03-06] MEDS ORDERED: ROCURONIUM BROMIDE 10 MG/ML 5 ML VIAL IV ONE (11:21)
--- NOTE | 2020-03-06 13:06 | P.PN ---
Progress Note - Text Progress Note Date: 03/06/20 I was called to the bedside this morning to evaluate tracheostomy site bleeding. Patient was found to have increased bleeding today although there has been some oozing intermittently over the last few days. Patient is coagulopathic from his underlying liver dysfunction. Pressure was being held when I arrived. I removed the sutures on either side of the trach. I could not visualize an exact site of bleeding. Certainly there was some concern for the possibility of an innominate artery bleed. Patient was taken to the operating room once the OR was ready for our arrival. It should be noted that while waiting despite the patient's blood pressure initially being quite stable he had an episode of arrest where he lost his cardiac rhythm and blood pressure. He responded to one dose of epinephrine. The patient's sister spoke with the nursing staff. Unfortunately given the severity of the situation and I was unable to talk to the patient's family. He was taken to the OR without formal consent even the emergency nature of the procedure. I did speak with the patient's family by jim davis following the procedure.
--- NOTE | 2020-03-06 13:10 | P.OP ---
Date of Procedure: 03/06/20 Procedure(s) Performed: PREOPERATIVE DIAGNOSIS: Tracheostomy site bleeding POSTOPERATIVE DIAGNOSIS: Same PROCEDURE: Tracheostomy removal and replacement with control of bleeding SURGEON: Liya EBL: Approximately 100 mL in the OR, while in ICU patient lost approximately 500-7 50 mL ANESTHESIA: General COMPLICATIONS: None OPERATIVE PROCEDURE: Patient was placed in the operative table in the supine position. A shoulder roll was utilized. The neck was prepped and draped in usual sterile fashion with the tracheostomy in place. Anesthesia then using the glide scope brought the tip of the endotracheal tube to the site of the trach and the trach was then removed. Digitally I manipulated the endotracheal tube into the trachea. The balloon was inflated. There was good volume exchange and positive end-tidal CO2. The tracheostomy site itself was then carefully inspected. Old clot was evacuated. There was an area of bleeding coming from the cut edge of the thyroid isthmus on the left. This was controlled using 2 separate 2-0 silk ties. There was a small amount of oozing present along the lateral aspect of the trachea as well and was controlled easily with electrocautery. There was no evidence of bleeding inferiorly. I could not palpate the innominate vessels. Another area of bleeding was later identified coming from a subcutaneous vein. This is controlled using a 2-0 silk ties well. At that point I was comfortable with replacing the patient's tracheostomy. Surgicel was left along the left lateral aspect of the trachea. The endotracheal tube was gradually removed and a new 8-Maltese nonfenestrated Shiley tracheostomy catheter was advanced without difficulty. The inner cannula was placed and the balloon was inflated. Positive end tidal CO2 was noted. The trach was sutured to the skin superiorly using 2 separate 0 silk sutures. On the left side there was some bleeding there. The suture was removed and retied. No further bleeding was seen from the 0 silk suture at that time. The skin was closed using 3-0 Vicryl sutures. A dressing was applied. DISPOSITION: Stable to ICU I spoke with the patient's sister by phone. I know the family. There were informed of the need for urgent operation without conversation regarding the surgery and risks. They were notified that further bleeding was a risk given the patient's coagulopathy. We'll monitor closely.
[2020-03-06] MEDS: CISATRACURIUM 200 MG in SODIUM CHLORIDE 0.9% 180 ML IV SCH (14:18)
[2020-03-06 14:24] LABS: Glucose,Whole Blood 171 mg/dL (75-99)
[2020-03-06] MEDS: PROPOFOL 1,000 MG in EMPTY BAG 1 BAG IV SCH ×3 (15:07→21:50)
[2020-03-06 15:14] LABS: Anisocytosis Moderate; Basophils # (A) 0.1 k/uL (0-0.2); Basophils % (A) 0 %; Eosinophils # (A) 0.1 k/uL (0-0.7); Eosinophils % (A) 0 %; HCT 21.5 % (39.0-53.0); Hypochromasia Marked; Lymphocytes # (A) 1.7 k/uL (1.0-4.8); Lymphocytes % (A) 6 %; MCH 33.9 pg (25.0-35.0); Macrocytosis Marked; Monocytes % (A) 3 %; Neutrophils % (A) 89 %; RBC 1.97 m/uL (4.30-5.90); RDW 23.2 % (11.5-15.5); WBC 31.3 k/uL (3.8-10.6)
[2020-03-06 15:18] LABS: HGB 6.7 gm/dL (13.0-17.5); MCV 109.2 fL (80.0-100.0); Platelet Count 93 k/uL (150-450)
[2020-03-06 15:28] LABS: INR 1.8 (<1.2); Partial Thromboplastin Time 28.4 sec (22.0-30.0); Prothrombin Time 17.9 sec (9.0-12.0)
[2020-03-06 15:53] LABS: Polychromasia Present
[2020-03-06] MEDS ORDERED: ANIDULAFUNGIN 100 MG in SODIUM CHLORIDE 0.9% 100 ML IVPB SCH (17:30)
[2020-03-06] MEDS ORDERED: POTASSIUM BICARBONATE/CIT AC 20 MEQ TABLET.EFF NG-TUBE SCH (18:00)
[2020-03-06 18:13] LABS: Glucose,Whole Blood 173 mg/dL (75-99)
[2020-03-06] MEDS: ANIDULAFUNGIN 100 MG in SODIUM CHLORIDE 0.9% 100 ML IVPB SCH (18:23)
--- NOTE | 2020-03-06 20:53 | PN ---
PROGRESS NOTE DATE OF SERVICE: 03/06/2020 The patient is a 54-year-old alcoholic with acute alcoholic hepatitis and acute respiratory failure secondary to aspiration pneumonia, remains in the intensive care unit. He had a PEG tube and trach done two days ago. Tube feeds are going, he is tolerating well. He dropped his hemoglobin to 7.5 g/dL but clinically no evidence of active bleeding. He has an FMS in place which has about 1000 mL of dark green stool. No acute events noted overnight. PHYSICAL EXAMINATION: He remains sedated. VITAL SIGNS: Stable. Blood pressure 127/44, pulse rate 113, temperature 98.9. HEENT examination unremarkable. Conjunctivae pink. Sclerae anicteric. Oral cavity no lesions. NECK: No JVD or lymph node enlargement. CHEST: Clear auscultation. HEART: Regular rate and rhythm. ABDOMEN: Soft. Bowel sounds are positive. Slightly distended abdomen, PEG tube in place. EXTREMITIES: 2+ pedal edema. NEURO: Sedated. LABS: From today WBC 24, hemoglobin 7.3, platelets 45. T bilirubin is 6.9, AST and ALT are 172 and 113 respectively. Alkaline phosphatase is normal. BUN and creatinine 47 and 0.9. IMPRESSION: 1. Alcoholic cirrhosis of the liver with acute alcoholic hepatitis. 2. Acute respiratory failure secondary to aspiration pneumonia. Remains on antibiotics and remains on the vent with tracheostomy done two days ago. 3. Status post PEG tube placement with oral feeds, tolerating well. 4. Anemia with no signs of active bleeding. Hemoglobin dropped from 8.5 to 7.5 g/dL. FMS bag has some dark green stool. 5. Hepatic encephalopathy, remains on lactulose and Xifaxan. RECOMMENDATION: 1. Continue with symptomatic and supportive care. 2. Monitor LFTs on a daily basis. 3. Monitor CBC daily. 4. Continue Protonix 40 mg daily. 5. Continue lactulose and Xifaxan. 6. Repeat labs in the morning. We will follow with you closely. Thank you for this consultation. MMODL / IJN: [id number] /
[2020-03-06 22:20] LABS: Anisocytosis Moderate; HCT 21.3 % (39.0-53.0); HGB 7.3 gm/dL (13.0-17.5); Hypochromasia Slight; MCH 35.2 pg (25.0-35.0); MCHC 34.2 g/dL (31.0-37.0); Macrocytosis Marked; Mean Platelet Volume 11.8; Poikilocytosis Slight; RBC 2.06 m/uL (4.30-5.90); RDW 23.2 % (11.5-15.5); WBC 28.9 k/uL (3.8-10.6)
[2020-03-06 22:47] LABS: MCV 103.1 fL (80.0-100.0); Platelet Count 72 k/uL (150-450)
[2020-03-06 23:48] LABS: Glucose,Whole Blood 184 mg/dL (75-99)
[2020-03-07] MEDS: INSULIN ASPART (NovoLOG) 100 UNIT/ML VIAL SQ SCH ×4 (00:16→17:12)
[2020-03-07] MEDS: MORPHINE SULFATE 2 MG/ML SYRINGE IVP PRN ×2 (00:17→13:10)
[2020-03-07] MEDS: PROPOFOL 1,000 MG in EMPTY BAG 1 BAG IV SCH ×5 (02:05→17:11)
[2020-03-07] MEDS: IPRATROPIUM-ALBUTEROL 3 ML NEB INHALATION SCH ×6 (03:18→23:29)
[2020-03-07 05:00] LABS: ABG Base Excess -3.6 mmol/L; ABG HCO3 21 mmol/L (21-25); ABG Oxygen Saturation 94.3 % (94-97); ABG PCO2 33 mmHg (35-45); ABG PH 7.41 (7.35-7.45); ABG PO2 69 mmHg (83-108); ABG TCO2 22 mmol/L (19-24); Allen Test Performed? Yes
[2020-03-07 05:13] LABS: Glucose,Whole Blood 166 mg/dL (75-99)
[2020-03-07 05:32] LABS: Albumin 1.9 g/dL (3.5-5.0); Calcium 7.8 mg/dL (8.4-10.2); Magnesium 2.3 mg/dL (1.6-2.3); Potassium 3.4 mmol/L (3.5-5.1); Total Bilirubin 4.7 mg/dL (0.2-1.3); Total Protein 4.6 g/dL (6.3-8.2)
[2020-03-07 05:33] LABS: Anisocytosis Moderate; Basophils # (A) 0.1 k/uL (0-0.2); Basophils % (A) 0 %; Eosinophils # (A) 0.4 k/uL (0-0.7); Eosinophils % (A) 2 %; HCT 21.9 % (39.0-53.0); Hypochromasia Moderate; Lymphocytes # (A) 3.1 k/uL (1.0-4.8); Lymphocytes % (A) 12 %; MCH 33.3 pg (25.0-35.0); MCHC 32.1 g/dL (31.0-37.0); MCV 103.6 fL (80.0-100.0); Macrocytosis Marked; Mean Platelet Volume 11.9; Monocytes # (A) 0.8 k/uL (0-1.0); Monocytes % (A) 3 %; Neutrophils # (A) 20.5 k/uL (1.3-7.7); Neutrophils % (A) 81 %; Poikilocytosis Slight; RBC 2.12 m/uL (4.30-5.90); RDW 23.6 % (11.5-15.5); WBC 25.3 k/uL (3.8-10.6)
[2020-03-07] MEDS: CISATRACURIUM 200 MG in SODIUM CHLORIDE 0.9% 180 ML IV SCH (05:36)
[2020-03-07 05:38] LABS: Platelet Count 70 k/uL (150-450)
[2020-03-07] MEDS: POTASSIUM BICARBONATE/CIT AC 20 MEQ TABLET.EFF NG-TUBE SCH ×2 (06:24→08:18)
[2020-03-07 06:25] LABS: Polychromasia Present
[2020-03-07] MEDS: NOREPINEPHRINE 8 MG in SODIUM CHLORIDE 0.9% 250 ML IV SCH (06:25)
[2020-03-07 06:27] LABS: Large Platelets Present
--- NOTE | 2020-03-07 07:24 | XR ---
EXAMINATION TYPE: XR chest 1V portable DATE OF EXAM: 03/07/2020 COMPARISON: Prior chest x-ray 03/06/2020 HISTORY: Tracheostomy tube, patient on ventilator, abnormal chest x-ray TECHNIQUE: Single frontal view of the chest is obtained. FINDINGS: Tracheostomy tube is overlying the tracheal air column, is less preferences venous cathete r with the distal tip in the right atrium. No evident pneumothorax. Lung lines are low and the patien t is rotated. Heart size is stable. Interstitium is increased. There is retrocardiac increased attenu ation as on prior. IMPRESSION: Correlate for pneumonia. Suspect underlying interstitial lung disease, correlate for pos sible pulmonary venous is interstitial edema, consider follow-up.
[2020-03-07] MEDS: CHLORHEXIDINE GLUCONATE 15 ML CUP MUCOUS MEM SCH ×2 (08:27→21:03)
[2020-03-07] MEDS: PANTOPRAZOLE 40 MG/10 ML VIAL IVP SCH ×2 (08:27→21:03)
[2020-03-07] MEDS: LACTULOSE 20 GM/30 ML CUP PO SCH ×3 (08:27→21:04)
[2020-03-07] MEDS: RIFAXIMIN 550 MG TABLET PO SCH ×2 (08:28→21:04)
--- NOTE | 2020-03-07 08:43 | P.PN ---
Subjective Progress Note Date: 03/07/20 Principal diagnosis: acute hypoxic respiratory failure secondary to aspiration pneumonia and acute sepsis, with subsequent alcoholic liver failure Status post tracheostomy, PEG tube placement, consider placement [facility] patient evaluated today, in the intensive care unit, intubated and mechanically ventilated. This morning's chest x-ray showing continued improvement. Ammonia level is 64 which actually is down from 69. Chest x-ray was reviewed this morning stable comparable to yesterday. Blood gases also showed improvement in pulmonary, decreased PEEP to 5. THE ammonia level was down to 64 Patient is currently being sedated BUN 69 creatinine 1.32 03/07/2020 Patient status post tracheostomy and PEG tube placement. On mechanical vent ilator settings assist-control rate of 12 TV for 50 FiO2 40% PEEP of 5. Norepinephrine is off. IV fluids KVO being tube fed 30 ML's per hour Ammonia level is down to 45 Objective - Vital Signs Vital signs: Vital Signs Temp 99.6 F 03/07/20 07:30 Pulse 120 H 03/07/20 08:00 Resp 18 03/07/20 08:00 BP 102/49 03/07/20 07:15 Pulse Ox 98 03/07/20 08:00 Intake & Output 03/06/20 03/07/20 03/07/20 18:59 06:59 18:59 Intake Total 2514.388 1592.036 50.132 Output Total 1340 1482 30 Balance 1174.388 110.036 20.132 Weight 89.8 kg Intake: IV 1232 312 26 0.9 NS 1160 240 20 Normal Saline Pressure 72 72 6 Bag Intake, IV Titration 268.388 622.036 24.132 Amount Norepinephrine 8 mg In 147.630 339.477 24.132 Sodium Chloride 0.9% 250 ml @ 0.05 MCG/KG/MIN 8. 872 mls/hr IV .Q24H [facility] Rx#:[id number] Potassium Chloride 20 meq 50 In Water For Injection 1 100ml.bag @ 50 mls/hr IVPB Q2H [facility] Rx#: [id number] Propofol 1,000 mg In 70.758 282.559 Empty Bag 1 bag @ Titrate IV .Q0M [facility] Rx#: [id number] Tube Feeding 210 90 Blood Product 704 468 Ffp 24 Cp2d Unit 0 234 [id number] Ffp 24 Cp2d Unit 183 [id number] Platelet Pheresis Acda2 211 Unit [id number] Rc As-1 Unit 0 [id number] Rc Pheresis 2 As3 Unit 310 [id number] Other 100 100 Output: Urine 540 432 30 Stool 700 Urine/Stool Mix 1050 Estimated Blood Loss 100 Other: Voiding Method Indwelling Catheter Indwelling Catheter ABP, PAP, CO, CI - Last Documented Arterial Blood Pressure 125/38 - Exam General: Tracheostomy,mechanical ventilation HEENT: mild scleral icterus endotracheal tube oral gastric tube is intact Neck: Tracheostomy clean and dry Cardiac: [Heart regular in rate and rhythm. normal S1 and S2, regular 6 systolic murmur Lungs: crackles and/or rhonchi bilateral Abdomen: [No mass. No organomegaly. Bowel sounds presnt and normoactive in all 4 quadrants. PEG tube in place Extremes: 2+ bipedal edema, no cyanosis, deformity noted dorsal aspect right foot : Rectal tube in place Musculoskeletal: [No joint erythema, edema or tenderness.] Skin: [No rash.] Neurologic: cannot be assessed, fully sedated, on mechanical ventilation Lymphatic: [No adenopathy.] - Labs CBC & Chem 7: 03/07/20 05:10 03/07/20 05:10 Labs: Abnormal Lab Results - Last 24 Hours (Table) 02/22/20 03/06/20 03/06/20 Range/Units 14:10 10:25 10:50 WBC 24.0 H (3.8-10.6) k/uL RBC 1.96 L (4.30-5.90) m/uL Hgb 7.3 L (13.0-17.5) gm/dL Hct 23.1 L (39.0-53.0) % MCV 118.0 H (80.0-100.0) fL MCH 37.3 H (25.0-35.0) pg RDW 22.2 H (11.5-15.5) % Plt Count 45 L (150-450) k/uL Neutrophils # (1.3-7.7) k/uL Macrocytosis Marked A PT (9.0-12.0) sec INR (<1.2) ABG pCO2 (35-45) mmHg ABG pO2 (83-108) mmHg Sodium (137-145) mmol/L Potassium (3.5-5.1) mmol/L Chloride (98-107) mmol/L BUN (9-20) mg/dL Glucose (74-99) mg/dL POC Glucose (mg/dL) (75-99) mg/dL Calcium (8.4-10.2) mg/dL Total Bilirubin (0.2-1.3) mg/dL AST (17-59) U/L ALT (4-49) U/L Alkaline Phosphatase (38-126) U/L Total Protein (6.3-8.2) g/dL Albumin (3.5-5.0) g/dL Crossmatch See Detail See Detail 03/06/20 03/06/20 03/06/20 Range/Units 14:21 15:00 15:00 WBC 31.3 H (3.8-10.6) k/uL RBC 1.97 L (4.30-5.90) m/uL Hgb 6.7 L* (13.0-17.5) gm/dL Hct 21.5 L (39.0-53.0) % MCV 109.2 H D (80.0-100.0) fL MCH (25.0-35.0) pg RDW 23.2 H (11.5-15.5) % Plt Count 93 L D (150-450) k/uL Neutrophils # 28.0 H (1.3-7.7) k/uL Macrocytosis Marked A PT 17.9 H (9.0-12.0) sec INR 1.8 H (<1.2) ABG pCO2 (35-45) mmHg ABG pO2 (83-108) mmHg Sodium (137-145) mmol/L Potassium (3.5-5.1) mmol/L Chloride (98-107) mmol/L BUN (9-20) mg/dL Glucose (74-99) mg/dL POC Glucose (mg/dL) 171 H (75-99) mg/dL Calcium (8.4-10.2) mg/dL Total Bilirubin (0.2-1.3) mg/dL AST (17-59) U/L ALT (4-49) U/L Alkaline Phosphatase (38-126) U/L Total Protein (6.3-8.2) g/dL Albumin (3.5-5.0) g/dL Crossmatch 03/06/20 03/06/20 03/06/20 Range/Units 18:12 22:00 23:46 WBC 28.9 H (3.8-10.6) k/uL RBC 2.06 L (4.30-5.90) m/uL Hgb 7.3 L (13.0-17.5) gm/dL Hct 21.3 L (39.0-53.0) % MCV 103.1 H D (80.0-100.0) fL MCH 35.2 H (25.0-35.0) pg RDW 23.2 H (11.5-15.5) % Plt Count 72 L (150-450) k/uL Neutrophils # (1.3-7.7) k/uL Macrocytosis Marked A PT (9.0-12.0) sec INR (<1.2) ABG pCO2 (35-45) mmHg ABG pO2 (83-108) mmHg Sodium (137-145) mmol/L Potassium (3.5-5.1) mmol/L Chloride (98-107) mmol/L BUN (9-20) mg/dL Glucose (74-99) mg/dL POC Glucose (mg/dL) 173 H 184 H (75-99) mg/dL Calcium (8.4-10.2) mg/dL Total Bilirubin (0.2-1.3) mg/dL AST (17-59) U/L ALT (4-49) U/L Alkaline Phosphatase (38-126) U/L Total Protein (6.3-8.2) g/dL Albumin (3.5-5.0) g/dL Crossmatch 03/07/20 03/07/20 03/07/20 Range/Units 04:58 05:10 05:10 WBC 25.3 H (3.8-10.6) k/uL RBC 2.12 L (4.30-5.90) m/uL Hgb 7.0 L (13.0-17.5) gm/dL Hct 21.9 L (39.0-53.0) % MCV 103.6 H (80.0-100.0) fL MCH (25.0-35.0) pg RDW 23.6 H (11.5-15.5) % Plt Count 70 L (150-450) k/uL Neutrophils # 20.5 H (1.3-7.7) k/uL Macrocytosis Marked A PT (9.0-12.0) sec INR (<1.2) ABG pCO2 33 L (35-45) mmHg ABG pO2 69 L (83-108) mmHg Sodium 146 H (137-145) mmol/L Potassium 3.4 L (3.5-5.1) mmol/L Chloride 121 H (98-107) mmol/L BUN 54 H (9-20) mg/dL Glucose 142 H (74-99) mg/dL POC Glucose (mg/dL) (75-99) mg/dL Calcium 7.8 L (8.4-10.2) mg/dL Total Bilirubin 4.7 H (0.2-1.3) mg/dL AST 151 H (17-59) U/L ALT 81 H (4-49) U/L Alkaline Phosphatase 127 H (38-126) U/L Total Protein 4.6 L (6.3-8.2) g/dL Albumin 1.9 L (3.5-5.0) g/dL Crossmatch 03/07/20 Range/Units 05:10 WBC (3.8-10.6) k/uL RBC (4.30-5.90) m/uL Hgb (13.0-17.5) gm/dL Hct (39.0-53.0) % MCV (80.0-100.0) fL MCH (25.0-35.0) pg RDW (11.5-15.5) % Plt Count (150-450) k/uL Neutrophils # (1.3-7.7) k/uL Macrocytosis PT (9.0-12.0) sec INR (<1.2) ABG pCO2 (35-45) mmHg ABG pO2 (83-108) mmHg Sodium (137-145) mmol/L Potassium (3.5-5.1) mmol/L Chloride (98-107) mmol/L BUN (9-20) mg/dL Glucose (74-99) mg/dL POC Glucose (mg/dL) 166 H (75-99) mg/dL Calcium (8.4-10.2) mg/dL Total Bilirubin (0.2-1.3) mg/dL AST (17-59) U/L ALT (4-49) U/L Alkaline Phosphatase (38-126) U/L Total Protein (6.3-8.2) g/dL Albumin (3.5-5.0) g/dL Crossmatch Microbiology - Last 24 Hours (Table) 03/04/20 14:25 Blood Culture - Preliminary Blood No Growth after 48 hours 03/04/20 14:45 Blood Culture - Preliminary Blood No Growth after 48 hours 03/05/20 10:08 Catheter Tip Culture - Preliminary Catheter Tip 03/05/20 10:08 Catheter Tip Culture - Preliminary Catheter Tip 03/04/20 11:00 Gram Stain - Final Sputum Sputum Culture - Final Melisa albicans Melisa glabrata 03/04/20 10:10 Urine Culture - Final Urine,Catheterized Melisa albicans Assessment and Plan (1) Sepsis with acute hypoxic respiratory failure and septic shock Current Visit: Yes Status: Acute Code(s): A41.9 - SEPSIS, UNSPECIFIED ORGANISM; R65.21 - SEVERE SEPSIS WITH SEPTIC SHOCK; J96.01 - ACUTE RESPIRATORY FAILURE WITH HYPOXIA SNOMED Code(s): 584026456 (2) Serum ammonia increased Current Visit: Yes Status: Acute Code(s): E72.20 - DISORDER OF UREA CYCLE METABOLISM, UNSPECIFIED SNOMED Code(s): 7698967 (3) Anemia due to blood loss, acute Current Visit: Yes Status: Acute Code(s): D62 - ACUTE POSTHEMORRHAGIC ANEMIA SNOMED Code(s): 327016313 (4) Alcoholic peripheral neuropathy Current Visit: Yes Status: Acute Code(s): G62.1 - ALCOHOLIC POLYNEUROPATHY SNOMED Code(s): 9450643 (5) Acute alcoholic hepatitis Current Visit: Yes Status: Acute Code(s): K70.10 - ALCOHOLIC HEPATITIS WITHOUT ASCITES SNOMED Code(s): 1157713 (6) Ascites Current Visit: Yes Status: Acute Code(s): R18.8 - OTHER ASCITES SNOMED Code(s): 185280890 (7) Bicytopenia Current Visit: Yes Status: Acute Code(s): D75.89 - OTHER SPECIFIED DISEASES OF BLOOD AND BLOOD-FORMING ORGANS SNOMED Code(s): 94966100 (8) Foot swelling Current Visit: Yes Status: Acute Priority: Medium Code(s): M79.89 - OTHER SPECIFIED SOFT TISSUE DISORDERS SNOMED Code(s): 605762678 (9) GI hemorrhage Current Visit: Yes Status: Acute Code(s): K92.2 - GASTROINTESTINAL HEMORRHAGE, UNSPECIFIED SNOMED Code(s): 01992034 (10) Hepatic encephalopathy Current Visit: Yes Status: Acute Code(s): K72.90 - HEPATIC FAILURE, UNSPECIFIED WITHOUT COMA SNOMED Code(s): 87580680 (11) Liver cirrhosis Current Visit: Yes Status: Acute Code(s): K74.60 - UNSPECIFIED CIRRHOSIS OF LIVER SNOMED Code(s): 01965190 (12) Pneumonia Current Visit: Yes Status: Acute Code(s): J18.9 - PNEUMONIA, UNSPECIFIED ORG ANISM SNOMED Code(s): 822063690 (13) Sepsis Current Visit: Yes Status: Acute Code(s): A41.9 - SEPSIS, UNSPECIFIED ORGANISM SNOMED Code(s): 85452709 Plan: continue ventilatory support Continue sedation Tracheostomy, PEG tube Ammonia levels improved Anticipate placement early next week, [facility] Patient appears improved today however prognosis is still guarded, Time with Patient: Greater than 30
--- NOTE | 2020-03-07 09:04 | P.PN ---
Subjective Progress Note Date: 03/07/20 Principal diagnosis: acute hypoxic respiratory failure secondary to aspiration pneumonia and acute sepsis, with subsequent alcoholic liver failure Status post tracheostomy, PEG tube placement, consider placement vent hospital probably [facility] special[facility] patient evaluated today, in the intensive care unit, intubated and mechanically ventilated. This morning's chest x-ray showing continued improvement. Ammonia level is 64 which actually is down from 69. Chest x-ray was reviewed this morning stable comparable to yesterday. Blood gases also showed improvement in pulmonary, decreased PEEP to 5. THE ammonia level was down to 64 Patient is currently being sedated BUN 69 creatinine 1.32 03/07/2020 Patient status post tracheostomy and PEG tube placement. On mechanical vent ilator settings assist-control rate of 12 TV for 50 FiO2 40% PEEP of 5. Norepinephrine is off. IV fluids KVO being tube fed 30 ML's per hour Ammonia level is down to 45 Objective - Vital Signs Vital signs: Vital Signs Temp 99.6 F 03/07/20 07:30 Pulse 120 H 03/07/20 08:00 Resp 18 03/07/20 08:00 BP 102/49 03/07/20 07:15 Pulse Ox 98 03/07/20 08:00 Intake & Output 03/06/20 03/07/20 03/07/20 18:59 06:59 18:59 Intake Total 2514.388 1592.036 216.132 Output Total 1340 1482 65 Balance 1174.388 110.036 151.132 Weight 89.8 kg Intake: IV 1232 312 52 0.9 NS 1160 240 40 Normal Saline Pressure 72 72 12 Bag Intake, IV Titration 268.388 622.036 24.132 Amount Norepinephrine 8 mg In 147.630 339.477 24.132 Sodium Chloride 0.9% 250 ml @ 0.05 MCG/KG/MIN 8. 872 mls/hr IV .Q24H [facility] Rx#:[id number] Potassium Chloride 20 meq 50 In Water For Injection 1 100ml.bag @ 50 mls/hr IVPB Q2H [facility] Rx#: [id number] Propofol 1,000 mg In 70.758 282.559 Empty Bag 1 bag @ Titrate IV .Q0M J[facility]ED Rx#: [id number] Tube Feeding 210 90 40 Blood Product 704 468 Ffp 24 Cp2d Unit 0 234 [id number] Ffp 24 Cp2d Unit 183 [id number] Platelet Pheresis Acda2 211 Unit [id number] Rc As-1 Unit 0 [id number] Rc Pheresis 2 As3 Unit 310 [id number] Other 100 100 100 Output: Urine 540 432 65 Stool 700 Urine/Stool Mix 1050 Estimated Blood Loss 100 Other: Voiding Method Indwelling Catheter Indwelling Catheter ABP, PAP, CO, CI - Last Documented Arterial Blood Pressure 125/38 - Exam General: Tracheostomy,mechanical ventilation HEENT: mild scleral icterus Neck: Tracheostomy clean and dry Cardiac: [Heart regular in rate and rhythm. normal S1 and S2, regular 6 systolic murmur Lungs: crackles and/or rhonchi bilateral Abdomen: [No mass. No organomegaly. Bowel sounds presnt and normoactive in all 4 quadrants. PEG tube in place Extremes: 2+ bipedal edema, no cyanosis, deformity noted dorsal aspect right foot : Rectal tube in place Musculoskeletal: [No joint erythema, edema or tenderness.] Skin: [No rash.] Neurologic: cannot be assessed, fully sedated, on mechanical ventilation Lymphatic: [No adenopathy.] - Labs CBC & Chem 7: 03/07/20 05:10 03/07/20 05:10 Labs: Abnormal Lab Results - Last 24 Hours (Table) 02/22/20 03/06/20 03/06/20 Range/Units 14:10 10:25 10:50 WBC 24.0 H (3.8-10.6) k/uL RBC 1.96 L (4.30-5.90) m/uL Hgb 7.3 L (13.0-17.5) gm/dL Hct 23.1 L (39.0-53.0) % MCV 118.0 H (80.0-100.0) fL MCH 37.3 H (25.0-35.0) pg RDW 22.2 H (11.5-15.5) % Plt Count 45 L (150-450) k/uL Neutrophils # (1.3-7.7) k/uL Macrocytosis Marked A PT (9.0-12.0) sec INR (<1.2) ABG pCO2 (35-45) mmHg ABG pO2 (83-108) mmHg Sodium (137-145) mmol/L Potassium (3.5-5.1) mmol/L Chloride (98-107) mmol/L BUN (9-20) mg/dL Glucose (74-99) mg/dL POC Glucose (mg/dL) (75-99) mg/dL Calcium (8.4-10.2) mg/dL Total Bilirubin (0.2-1.3) mg/dL AST (17-59) U/L ALT (4-49) U/L Alkaline Phosphatase (38-126) U/L Total Protein (6.3-8.2) g/dL Albumin (3.5-5.0) g/dL Crossmatch See Detail See Detail 03/06/20 03/06/20 03/06/20 Range/Units 14:21 15:00 15:00 WBC 31.3 H (3.8-10.6) k/uL RBC 1.97 L (4.30-5.90) m/uL Hgb 6.7 L* (13.0-17.5) gm/dL Hct 21.5 L (39.0-53.0) % MCV 109.2 H D (80.0-100.0) fL MCH (25.0-35.0) pg RDW 23.2 H (11.5-15.5) % Plt Count 93 L D (150-450) k/uL Neutrophils # 28.0 H (1.3-7.7) k/uL Macrocytosis Marked A PT 17.9 H (9.0-12.0) sec INR 1.8 H (<1.2) ABG pCO2 (35-45) mmHg ABG pO2 (83-108) mmHg Sodium (137-145) mmol/L Potassium (3.5-5.1) mmol/L Chloride (98-107) mmol/L BUN (9-20) mg/dL Glucose (74-99) mg/dL POC Glucose (mg/dL) 171 H (75-99) mg/dL Calcium (8.4-10.2) mg/dL Total Bilirubin (0.2-1.3) mg/dL AST (17-59) U/L ALT (4-49) U/L Alkaline Phosphatase (38-126) U/L Total Protein (6.3-8.2) g/dL Albumin (3.5-5.0) g/dL Crossmatch 03/06/20 03/06/20 03/06/20 Range/Units 18:12 22:00 23:46 WBC 28.9 H (3.8-10.6) k/uL RBC 2.06 L (4.30-5.90) m/uL Hgb 7.3 L (13.0-17.5) gm/dL Hct 21.3 L (39.0-53.0) % MCV 103.1 H D (80.0-100.0) fL MCH 35.2 H (25.0-35.0) pg RDW 23.2 H (11.5-15.5) % Plt Count 72 L (150-450) k/uL Neutrophils # (1.3-7.7) k/uL Macrocytosis Marked A PT (9.0-12.0) sec INR (<1.2) ABG pCO2 (35-45) mmHg ABG pO2 (83-108) mmHg Sodium (137-145) mmol/L Potassium (3.5-5.1) mmol/L Chloride (98-107) mmol/L BUN (9-20) mg/dL Glucose (74-99) mg/dL POC Glucose (mg/dL) 173 H 184 H (75-99) mg/dL Calcium (8.4-10.2) mg/dL Total Bilirubin (0.2-1.3) mg/dL AST (17-59) U/L ALT (4-49) U/L Alkaline Phosphatase (38-126) U/L Total Protein (6.3-8.2) g/dL Albumin (3.5-5.0) g/dL Crossmatch 03/07/20 03/07/20 03/07/20 Range/Units 04:58 05:10 05:10 WBC 25.3 H (3.8-10.6) k/uL RBC 2.12 L (4.30-5.90) m/uL Hgb 7.0 L (13.0-17.5) gm/dL Hct 21.9 L (39.0-53.0) % MCV 103.6 H (80.0-100.0) fL MCH (25.0-35.0) pg RDW 23.6 H (11.5-15.5) % Plt Count 70 L (150-450) k/uL Neutrophils # 20.5 H (1.3-7.7) k/uL Macrocytosis Marked A PT (9.0-12.0) sec INR (<1.2) ABG pCO2 33 L (35-45) mmHg ABG pO2 69 L (83-108) mmHg Sodium 146 H (137-145) mmol/L Potassium 3.4 L (3.5-5.1) mmol/L Chloride 121 H (98-107) mmol/L BUN 54 H (9-20) mg/dL Glucose 142 H (74-99) mg/dL POC Glucose (mg/dL) (75-99) mg/dL Calcium 7.8 L (8.4-10.2) mg/dL Total Bilirubin 4.7 H (0.2-1.3) mg/dL AST 151 H (17-59) U/L ALT 81 H (4-49) U/L Alkaline Phosphatase 127 H (38-126) U/L Total Protein 4.6 L (6.3-8.2) g/dL Albumin 1.9 L (3.5-5.0) g/dL Crossmatch 03/07/20 Range/Units 05:10 WBC (3.8-10.6) k/uL RBC (4.30-5.90) m/uL Hgb (13.0-17.5) gm/dL Hct (39.0-53.0) % MCV (80.0-100.0) fL MCH (25.0-35.0) pg RDW (11.5-15.5) % Plt Count (150-450) k/uL Neutrophils # (1.3-7.7) k/uL Macrocytosis PT (9.0-12.0) sec INR (<1.2) ABG pCO2 (35-45) mmHg ABG pO2 (83-108) mmHg Sodium (137-145) mmol/L Potassium (3.5-5.1) mmol/L Chloride (98-107) mmol/L BUN (9-20) mg/dL Glucose (74-99) mg/dL POC Glucose (mg/dL) 166 H (75-99) mg/dL Calcium (8.4-10.2) mg/dL Total Bilirubin (0.2-1.3) mg/dL AST (17-59) U/L ALT (4-49) U/L Alkaline Phosphatase (38-126) U/L Total Protein (6.3-8.2) g/dL Albumin (3.5-5.0) g/dL Crossmatch Microbiology - Last 24 Hours (Table) 03/04/20 14:25 Blood Culture - Preliminary Blood No Growth after 48 hours 03/04/20 14:45 Blood Culture - Preliminary Blood No Growth after 48 hours 03/05/20 10:08 Catheter Tip Culture - Preliminary Catheter Tip 03/05/20 10:08 Catheter Tip Culture - Preliminary Catheter Tip 03/04/20 11:00 Gram Stain - Final Sputum Sputum Culture - Final Melisa albicans Melisa glabrata 03/04/20 10:10 Urine Culture - Final Urine,Catheterized Melisa albicans Assessment and Plan (1) Sepsis with acute hypoxic respiratory failure and septic shock Current Visit: Yes Status: Acute Code(s): A41.9 - SEPSIS, UNSPECIFIED ORGANISM; R65.21 - SEVERE SEPSIS WITH SEPTIC SHOCK; J96.01 - ACUTE RESPIRATORY FAILURE WITH HYPOXIA SNOMED Code(s): 122091216 (2) Serum ammonia increased Current Visit: Yes Status: Acute Code(s): E72.20 - DISORDER OF UREA CYCLE METABOLISM, UNSPECIFIED SNOMED Code(s): 1147400 (3) Anemia due to blood loss, acute Current Visit: Yes Status: Acute Code(s): D62 - ACUTE POSTHEMORRHAGIC ANEMIA SNOMED Code(s): 930315948 (4) Alcoholic peripheral neuropathy Current Visit: Yes Status: Acute Code(s): G62.1 - ALCOHOLIC POLYNEUROPATHY SNOMED Code(s): 5127580 (5) Acute alcoholic hepatitis Current Visit: Yes Status: Acute Code(s): K70.10 - ALCOHOLIC HEPATITIS WITHOUT ASCITES SNOMED Code(s): 0278581 (6) Ascites Current Visit: Yes Status: Acute Code(s): R18.8 - OTHER ASCITES SNOMED Code(s): 078677567 (7) Bicytopenia Current Visit: Yes Status: Acute Code(s): D75.89 - OTHER SPECIFIED DISEASES OF BLOOD AND BLOOD-FORMING ORGANS SNOMED Code(s): 64554901 (8) Foot swelling Current Visit: Yes Status: Acute Priority: Medium Code(s): M79.89 - OTHER SPECIFIED SOFT TISSUE DISORDERS SNOMED Code(s): 187847877 (9) GI hemorrhage Current Visit: Yes Status: Acute Code(s): K92.2 - GASTROINTESTINAL HEMORRHAGE, UNSPECIFIED SNOMED Code(s): 15774145 (10) Hepatic encephalopathy Current Visit: Yes Status: Acute Code(s): K72.90 - HEPATIC FAILURE, UNSPECIFIED WITHOUT COMA SNOMED Code(s): 97189876 (11) Liver cirrhosis Current Visit: Yes Status: Acute Code(s): K74.60 - UNSPECIFIED CIRRHOSIS OF LIVER SNOMED Code(s): 78781028 (12) Pneumonia Current Visit: Yes Status: Acute Code(s): J18.9 - PNEUMONIA, UNSPECIFIED ORGANISM SNOMED Code(s): 416675907 (13) Sepsis Current Visit: Yes Status: Acute Code(s): A41.9 - SEPSIS, UNSPECIFIED ORGANISM SNOMED Code(s): 40726398 Plan: continue ventilatory support Continue sedation Tracheostomy, PEG tube Ammonia levels improved Anticipate placement early next week, [facility], [facility] Patient appears improved today however prognosis is still guarded, Time with Patient: Greater than 30
--- NOTE | 2020-03-07 09:20 | PN ---
PROGRESS NOTE DATE OF SERVICE: March 07, 2020 Patient is a 54-year-old white male admitted with acute respiratory failure, remains on the vent. History of alcoholic liver disease and acute alcoholic hepatitis. The patient yesterday developed active bleeding from the tracheostomy site. He had to be taken to the OR by Dr. Nickerson. After that, he decompensated and presently on pressors with Levophed at 10 mics. He remains on the vent, completely sedated. He has been oxygenating poorly through the night following the surgery. No active GI bleed noted. PHYSICAL EXAMINATION: Remains on the vent. Blood pressure 125/38, pulse rate 120, afebrile. HEENT examination unremarkable. Conjunctivae pink. Sclerae anicteric. Oral cavity no lesions. Neck: No JVD or lymph node enlargement. CHEST: Clear to auscultation. HEART: Regular rate and rhythm. ABDOMEN is slightly distended. PEG tube in place. Tube feeds ongoing. EXTREMITIES: No edema. NEURO sedated. LABS: From today: WBC 25.3, hemoglobin 7. Status post 2 units of blood transfusion yesterday, platelets 70,000, bilirubin 4.7, AST 151, ALT 81, alkaline phosphatase 127. IMPRESSION: 1. Acute bleed from tracheostomy site status post surgery by Dr. Nickerson yesterday. Remains on the vent. 2. Acute respiratory failure. 3. Aspiration pneumonia on broad-spectrum antibiotics. 4. Alcoholic cirrhosis of the liver with acute alcoholic hepatitis with stable LFTs. 5. Hepatic encephalopathy. Remains on Xifaxan and oral lactulose and continues to have several loose bowel movements thru the FMS. RECOMMENDATIONS: 1. Continue with symptomatic and supportive care. 2. Continue broad-spectrum antibiotics. 3. Continue lactulose and Xifaxan. 4. Monitor labs closely. 5. Will follow with you. MMODL / IJN: [id number] /
[2020-03-07 10:13] LABS: Anisocytosis Moderate; HCT 20.7 % (39.0-53.0); Hypochromasia Slight; MCH 34.7 pg (25.0-35.0); MCHC 33.5 g/dL (31.0-37.0); MCV 103.7 fL (80.0-100.0); Macrocytosis Marked; Mean Platelet Volume 12.2; Poikilocytosis Slight; RDW 23.6 % (11.5-15.5); WBC 23.3 k/uL (3.8-10.6)
[2020-03-07 10:15] LABS: HGB 6.9 gm/dL (13.0-17.5); INR 1.5 (<1.2); Prothrombin Time 15.2 sec (9.0-12.0)
[2020-03-07 10:16] LABS: Platelet Count 70 k/uL (150-450)
[2020-03-07 10:28] LABS: Large Platelets Present
[2020-03-07 10:31] LABS: Lymphocytes # (M) 3.03 k/uL (1.0-4.8); Myelocytes # (M) 0.47 k/uL (0); Myelocytes % 2 %; Neutrophils # (M) 18.17 k/uL (1.3-7.7); Neutrophils % (M) 78 %; Nucleated Red Blood Cells 0 /100 WBC (0-0); Total Cells Counted 200
--- NOTE | 2020-03-07 10:33 | P.PN ---
Subjective Progress Note Date: 03/07/20 Principal diagnosis: Tracheostomy site bleeding Patient did fairly well overnight. Remains on low-dose pressors. Small amount of bloody fluid around trach site. Hemoglobin 7.0 this morning. Objective - Vital Signs Vital signs: Vital Signs Temp 99.6 F 03/07/20 07:30 Pulse 118 H 03/07/20 10:00 Resp 24 03/07/20 10:00 BP 102/49 03/07/20 07:15 Pulse Ox 100 03/07/20 10:00 Intake & Output 03/06/20 03/07/20 03/07/20 18:59 06:59 18:59 Intake Total 2514.388 1592.036 458.132 Output Total 1340 1482 215 Balance 1174.388 110.036 243.132 Weight 89.8 kg Intake: IV 1232 312 104 0.9 NS 1160 240 80 Normal Saline Pressure 72 72 24 Bag Intake, IV Titration 268.388 622.036 124.132 Amount Norepinephrine 8 mg In 147.630 339.477 24.132 Sodium Chloride 0.9% 250 ml @ 0.05 MCG/KG/MIN 8. 872 mls/hr IV .Q24H JARED Rx#:[id number] Potassium Chloride 20 meq 50 In Water For Injection 1 100ml.bag @ 50 mls/hr IVPB Q2H JARED Rx#: [id number] Propofol 1,000 mg In 70.758 282.559 100 Empty Bag 1 bag @ Titrate IV .Q0M JARED Rx#: [id number] Tube Feeding 210 90 130 Blood Product 704 468 Ffp 24 Cp2d Unit 0 234 [id number] Ffp 24 Cp2d Unit 183 [id number] Platelet Pheresis Acda2 211 Unit [id number] Rc As-1 Unit 0 [id number] Rc Pheresis 2 As3 Unit 310 [id number] Other 100 100 100 Output: Urine 540 432 215 Stool 700 Urine/Stool Mix 1050 Estimated Blood Loss 100 Other: Voiding Method Indwelling Catheter Indwelling Catheter ABP, PAP, CO, CI - Last Documented Arterial Blood Pressure 135/39 - Exam Tracheostomy site intact, small amount of old bloody drainage, no active bleeding - Labs CBC & Chem 7: 03/07/20 10:00 03/07/20 10:00 Labs: Abnormal Lab Results - Last 24 Hours (Table) 02/22/20 03/06/20 03/06/20 Range/Units 14:10 10:25 10:50 WBC 24.0 H (3.8-10.6) k/uL RBC 1.96 L (4.30-5.90) m/uL Hgb 7.3 L (13.0-17.5) gm/dL Hct 23.1 L (39.0-53.0) % MCV 118.0 H (80.0-100.0) fL MCH 37.3 H (25.0-35.0) pg RDW 22.2 H (11.5-15.5) % Plt Count 45 L (150-450) k/uL Neutrophils # (1.3-7.7) k/uL Neutrophils # (Manual) (1.3-7.7) k/uL Monocytes # (Manual) (0-1.0) k/uL Myelocytes # (Manual) (0) k/uL Macrocytosis Marked A PT (9.0-12.0) sec INR (<1.2) ABG pCO2 (35-45) mmHg ABG pO2 (83-108) mmHg Sodium (137-145) mmol/L Potassium (3.5-5.1) mmol/L Chloride (98-107) mmol/L BUN (9-20) mg/dL Glucose (74-99) mg/dL POC Glucose (mg/dL) (75-99) mg/dL Calcium (8.4-10.2) mg/dL Total Bilirubin (0.2-1.3) mg/dL AST (17-59) U/L ALT (4-49) U/L Alkaline Phosphatase (38-126) U/L Total Protein (6.3-8.2) g/dL Albumin (3.5-5.0) g/dL Crossmatch See Detail See Detail 03/06/20 03/06/20 03/06/20 Range/Units 14:21 15:00 15:00 WBC 31.3 H (3.8-10.6) k/uL RBC 1.97 L (4.30-5.90) m/uL Hgb 6.7 L* (13.0-17.5) gm/dL Hct 21.5 L (39.0-53.0) % MCV 109.2 H D (80.0-100.0) fL MCH (25.0-35.0) pg RDW 23.2 H (11.5-15.5) % Plt Count 93 L D (150-450) k/uL Neutrophils # 28.0 H (1.3-7.7) k/uL Neutrophils # (Manual) (1.3-7.7) k/uL Monocytes # (Manual) (0-1.0) k/uL Myelocytes # (Manual) (0) k/uL Macrocytosis Marked A PT 17.9 H (9.0-12.0) sec INR 1.8 H (<1.2) ABG pCO2 (35-45) mmHg ABG pO2 (83-108) mmHg Sodium (137-145) mmol/L Potassium (3.5-5.1) mmol/L Chloride (98-107) mmol/L BUN (9-20) mg/dL Glucose (74-99) mg/dL POC Glucose (mg/dL) 171 H (75-99) mg/dL Calcium (8.4-10.2) mg/dL Total Bilirubin (0.2-1.3) mg/dL AST (17-59) U/L ALT (4-49) U/L Alkaline Phosphatase (38-126) U/L Total Protein (6.3-8.2) g/dL Albumin (3.5-5.0) g/dL Crossmatch 03/06/20 03/06/20 03/06/20 Range/Units 18:12 22:00 23:46 WBC 28.9 H (3.8-10.6) k/uL RBC 2.06 L (4.30-5.90) m/uL Hgb 7.3 L (13.0-17.5) gm/dL Hct 21.3 L (39.0-53.0) % MCV 103.1 H D (80.0-100.0) fL MCH 35.2 H (25.0-35.0) pg RDW 23.2 H (11.5-15.5) % Plt Count 72 L (150-450) k/uL Neutrophils # (1.3-7.7) k/uL Neutrophils # (Manual) (1.3-7.7) k/uL Monocytes # (Manual) (0-1.0) k/uL Myelocytes # (Manual) (0) k/uL Macrocytosis Marked A PT (9.0-12.0) sec INR (<1.2) ABG pCO2 (35-45) mmHg ABG pO2 (83-108) mmHg Sodium (137-145) mmol/L Potassium (3.5-5.1) mmol/L Chloride (98-107) mmol/L BUN (9-20) mg/dL Glucose (74-99) mg/dL POC Glucose (mg/dL) 173 H 184 H (75-99) mg/dL Calcium (8.4-10.2) mg/dL Total Bilirubin (0.2-1.3) mg/dL AST (17-59) U/L ALT (4-49) U/L Alkaline Phosphatase (38-126) U/L Total Protein (6.3-8.2) g/dL Albumin (3.5-5.0) g/dL Crossmatch 03/07/20 03/07/20 03/07/20 Range/Units 04:58 05:10 05:10 WBC 25.3 H (3.8-10.6) k/uL RBC 2.12 L (4.30-5.90) m/uL Hgb 7.0 L (13.0-17.5) gm/dL Hct 21.9 L (39.0-53.0) % MCV 103.6 H (80.0-100.0) fL MCH (25.0-35.0) pg RDW 23.6 H (11.5-15.5) % Plt Count 70 L (150-450) k/uL Neutrophils # 20.5 H (1.3-7.7) k/uL Neutrophils # (Manual) (1.3-7.7) k/uL Monocytes # (Manual) (0-1.0) k/uL Myelocytes # (Manual) (0) k/uL Macrocytosis Marked A PT (9.0-12.0) sec INR (<1.2) ABG pCO2 33 L (35-45) mmHg ABG pO2 69 L (83-108) mmHg Sodium 146 H (137-145) mmol/L Potassium 3.4 L (3.5-5.1) mmol/L Chloride 121 H (98-107) mmol/L BUN 54 H (9-20) mg/dL Glucose 142 H (74-99) mg/dL POC Glucose (mg/dL) (75-99) mg/dL Calcium 7.8 L (8.4-10.2) mg/dL Total Bilirubin 4.7 H (0.2-1.3) mg/dL AST 151 H (17-59) U/L ALT 81 H (4-49) U/L Alkaline Phosphatase 127 H (38-126) U/L Total Protein 4.6 L (6.3-8.2) g/dL Albumin 1.9 L (3.5-5.0) g/dL Crossmatch 03/07/20 03/07/20 03/07/20 Range/Units 05:10 10:00 10:00 WBC 23.3 H (3.8-10.6) k/uL RBC 2.00 L (4.30-5.90) m/uL Hgb 6.9 L* (13.0-17.5) gm/dL Hct 20.7 L (39.0-53.0) % MCV 103.7 H (80.0-100.0) fL MCH (25.0-35.0) pg RDW 23.6 H (11.5-15.5) % Plt Count 70 L (150-450) k/uL Neutrophils # (1.3-7.7) k/uL Neutrophils # (Manual) 18.17 H (1.3-7.7) k/uL Monocytes # (Manual) 1.40 H (0-1.0) k/uL Myelocytes # (Manual) 0.47 H (0) k/uL Macrocytosis Marked A PT 15.2 H (9.0-12.0) sec INR 1.5 H (<1.2) ABG pCO2 (35-45) mmHg ABG pO2 (83-108) mmHg Sodium (137-145) mmol/L Potassium (3.5-5.1) mmol/L Chloride (98-107) mmol/L BUN (9-20) mg/dL Glucose (74-99) mg/dL POC Glucose (mg/dL) 166 H (75-99) mg/dL Calcium (8.4-10.2) mg/dL Total Bilirubin (0.2-1.3) mg/dL AST (17-59) U/L ALT (4-49) U/L Alkaline Phosphatase (38-126) U/L Total Protein (6.3-8.2) g/dL Albumin (3.5-5.0) g/dL Crossmatch Microbiology - Last 24 Hours (Table) 03/04/20 14:25 Blood Culture - Preliminary Blood No Growth after 48 hours 03/04/20 14:45 Blood Culture - Preliminary Blood No Growth after 48 hours 03/05/20 10:08 Catheter Tip Culture - Preliminary Catheter Tip 03/05/20 10:08 Catheter Tip Culture - Preliminary Catheter Tip 03/04/20 11:00 Gram Stain - Final Sputum Sputum Culture - Final Melisa albicans Melisa glabrata 03/04/20 10:10 Urine Culture - Final Urine,Catheterized Melisa albicans Assessment and Plan (1) Tracheostomy hemorrhage Narrative/Plan: Patient doing better today. No further active bleeding noted. We'll monitor. Defer transfusion decisions to intensivists. Current Visit: Yes Status: Acute Code(s): J95.01 - HEMORRHAGE FROM TRACHEOSTOMY STOMA SNOMED Code(s): 57022071
--- NOTE | 2020-03-07 11:17 | P.PN ---
Subjective Progress Note Date: 03/07/20 Principal diagnosis: Acute hypoxic respiratory failure secondary to acute aspiration pneumonia, acute sepsis The patient is seen today 03/06/2020 in follow-up in the intensive care unit. He remains minimally responsive. He is off sedation. He is status post trach and PEG tube placements. He remains on mechanical ventilator current settings assist-control with a rate of 12, tidal volume 450, FiO2 40% and a PEEP of 5. Morning blood gases reveal a pO2 79, pCO2 33, pH 7.45. Norepinephrine has been off. He has 0.9 at 10 MLS per hour. Being nourished with Marcelo Piette 30 ML's per hour which is goal. He is continued on Eraxis. He remains on Lasix 40 mg IV every 12 hours. Currently in a negative balance. SMS remains in place with copious amounts of liquid stool. Ammonia level is down to 45. AST 172. ALT 114. Sodium 144. Potassium 3.2. Chloride 118. Bicarb 24. Creatinine 0.90. White count 25.2. Hemoglobin 7.5. MCV 117. INR 1.5. The patient is seen today 03/07/2020 in follow-up in the intensive care unit. Yesterday the patient developed significant bleeding around his tracheostomy tube sites with significant blood loss of 6-800 ML's. He was taken to the operating room and had a tracheostomy removal and replacement with control of bleeding by Dr. Nickerson. He has received a total of 4 units of packed red blood cells 6 units of fresh frozen plasma and 5 of platelets. His current hemoglobin is 6.9. Platelet count 70,000. The plan is for another unit of packed red blood cells today. White count 23.3. INR 1.5. Sodium 146. Potassium 4.0. Chloride 121. Creatinine 1.20. AST 151. ALT 81. He remains sedated on propofol at 50 mcg/kg/m. Norepinephrine at 10 mcg/m. 0.9 normal saline at KVO. He is receiving nourishment via PEG tube with vital HP at 50 MLS per hour with a goal of 55. He remains on mechanical ventilator at assist control with a rate of 12, tidal volume 450, FiO2 50% and a PEEP of 5. Morning blood gases revealed a PaO2 of 69, pCO2 33, pH 7.41. Chest x-ray reveals possible underlying interstitial lung disease with pulmonary vascular congestion. He is on Lasix 40 mg IV every 12 hours. Eraxis. Lactulose. Xifaxan. Objective - Vital Signs Vital signs: Vital Signs Temp 99.6 F 03/07/20 07:30 Pulse 118 H 03/07/20 10:00 Resp 24 03/07/20 10:00 BP 102/49 03/07/20 07:15 Pulse Ox 100 03/07/20 10:00 Intake & Output 03/06/20 03/07/20 03/07/20 18:59 06:59 18:59 Intake Total 2514.388 1592.036 458.132 Output Total 1340 1482 215 Balance 1174.388 110.036 243.132 Weight 89.8 kg Intake: IV 1232 312 104 0.9 NS 1160 240 80 Normal Saline Pressure 72 72 24 Bag Intake, IV Titration 268.388 622.036 124.132 Amount Norepinephrine 8 mg In 147.630 339.477 24.132 Sodium Chloride 0.9% 250 ml @ 0.05 MCG/KG/MIN 8. 872 mls/hr IV .Q24H [facility] Rx#:[id number] Potassium Chloride 20 meq 50 In Water For Injection 1 100ml.bag @ 50 mls/hr IVPB Q2H [facility] Rx#: [id number] Propofol 1,000 mg In 70.758 282.559 100 Empty Bag 1 bag @ Titrate IV .Q0M [facility] Rx#: [id number] Tube Feeding 210 90 130 Blood Product 704 468 Ffp 24 Cp2d Unit 0 234 [id number] Ffp 24 Cp2d Unit 183 [id number] Platelet Pheresis Acda2 211 Unit [id number] Rc As-1 Unit 0 [id number] Rc Pheresis 2 As3 Unit 310 [id number] Other 100 100 100 Output: Urine 540 432 215 Stool 700 Urine/Stool Mix 1050 Estimated Blood Loss 100 Other: Voiding Method Indwelling Catheter Indwelling Catheter ABP, PAP, CO, CI - Last Documented Arterial Blood Pressure 135/39 - Exam GENERAL EXAM: On mechanical ventilator, minimally responsive 54-year-old gentleman, comfortable in no apparent distress. HEAD: Normocephalic. EYES: Normal reaction of pupils, equal size. NOSE: Clear with pink turbinates. THROAT: Tracheostomy tube secured in place. NECK: No masses, no JVD. CHEST: No chest wall deformity. LUNGS: Equal air entry with crackles at the bilateral posterior bases. CVS: S1 and S2 normal with no audible murmur, regular rhythm. ABDOMEN: PEG tube exit site clean and dry, normal bowel sounds, no guarding or rigidity. SPINE: No scoliosis or deformity SKIN: No rashes CENTRAL NERVOUS SYSTEM: Sedated, tone is normal in all 4 extremities. EXTREMITIES: There is 1-2+ peripheral edema. No clubbing, no cyanosis. Peripheral pulses are intact. - Labs CBC & Chem 7: 03/07/20 10:00 03/07/20 10:00 Labs: Abnormal Lab Results - Last 24 Hours (Table) 02/22/20 03/06/20 03/06/20 Range/Units 14:10 10:50 14:21 WBC (3.8-10.6) k/uL RBC (4.30-5.90) m/uL Hgb (13.0-17.5) gm/dL Hct (39.0-53.0) % MCV (80.0-100.0) fL MCH (25.0-35.0) pg RDW (11.5-15.5) % Plt Count (150-450) k/uL Neutrophils # (1.3-7.7) k/uL Neutrophils # (Manual) (1.3-7.7) k/uL Monocytes # (Manual) (0-1.0) k/uL Myelocytes # (Manual) (0) k/uL Macrocytosis PT (9.0-12.0) sec INR (<1.2) ABG pCO2 (35-45) mmHg ABG pO2 (83-108) mmHg Sodium (137-145) mmol/L Potassium (3.5-5.1) mmol/L Chloride (98-107) mmol/L BUN (9-20) mg/dL Glucose (74-99) mg/dL POC Glucose (mg/dL) 171 H (75-99) mg/dL Calcium (8.4-10.2) mg/dL Total Bilirubin (0.2-1.3) mg/dL AST (17-59) U/L ALT (4-49) U/L Alkaline Phosphatase (38-126) U/L Total Protein (6.3-8.2) g/dL Albumin (3.5-5.0) g/dL Crossmatch See Detail See Detail 03/06/20 03/06/20 03/06/20 Range/Units 15:00 15:00 18:12 WBC 31.3 H (3.8-10.6) k/uL RBC 1.97 L (4.30-5.90) m/uL Hgb 6.7 L* (13.0-17.5) gm/dL Hct 21.5 L (39.0-53.0) % MCV 109.2 H D (80.0-100.0) fL MCH (25.0-35.0) pg RDW 23.2 H (11.5-15.5) % Plt Count 93 L D (150-450) k/uL Neutrophils # 28.0 H (1.3-7.7) k/uL Neutrophils # (Manual) (1.3-7.7) k/uL Monocytes # (Manual) (0-1.0) k/uL Myelocytes # (Manual) (0) k/uL Macrocytosis Marked A PT 17.9 H (9.0-12.0) sec INR 1.8 H (<1.2) ABG pCO2 (35-45) mmHg ABG pO2 (83-108) mmHg Sodium (137-145) mmol/L Potassium (3.5-5.1) mmol/L Chloride (98-107) mmol/L BUN (9-20) mg/dL Glucose (74-99) mg/dL POC Glucose (mg/dL) 173 H (75-99) mg/dL Calcium (8.4-10.2) mg/dL Total Bilirubin (0.2-1.3) mg/dL AST (17-59) U/L ALT (4-49) U/L Alkaline Phosphatase (38-126) U/L Total Protein (6.3-8.2) g/dL Albumin (3.5-5.0) g/dL Crossmatch 03/06/20 03/06/20 03/07/20 Range/Units 22:00 23:46 04:58 WBC 28.9 H (3.8-10.6) k/uL RBC 2.06 L (4.30-5.90) m/uL Hgb 7.3 L (13.0-17.5) gm/dL Hct 21.3 L (39.0-53.0) % MCV 103.1 H D (80.0-100.0) fL MCH 35.2 H (25.0-35.0) pg RDW 23.2 H (11.5-15.5) % Plt Count 72 L (150-450) k/uL Neutrophils # (1.3-7.7) k/uL Neutrophils # (Manual) (1.3-7.7) k/uL Monocytes # (Manual) (0-1.0) k/uL Myelocytes # (Manual) (0) k/uL Macrocytosis Marked A PT (9.0-12.0) sec INR (<1.2) ABG pCO2 33 L (35-45) mmHg ABG pO2 69 L (83-108) mmHg Sodium (137-145) mmol/L Potassium (3.5-5.1) mmol/L Chloride (98-107) mmol/L BUN (9-20) mg/dL Glucose (74-99) mg/dL POC Glucose (mg/dL) 184 H (75-99) mg/dL Calcium (8.4-10.2) mg/dL Total Bilirubin (0.2-1.3) mg/dL AST (17-59) U/L ALT (4-49) U/L Alkaline Phosphatase (38-126) U/L Total Protein (6.3-8.2) g/dL Albumin (3.5-5.0) g/dL Crossmatch 03/07/20 03/07/20 03/07/20 Range/Units 05:10 05:10 05:10 WBC 25.3 H (3.8-10.6) k/uL RBC 2.12 L (4.30-5.90) m/uL Hgb 7.0 L (13.0-17.5) gm/dL Hct 21.9 L (39.0-53.0) % MCV 103.6 H (80.0-100.0) fL MCH (25.0-35.0) pg RDW 23.6 H (11.5-15.5) % Plt Count 70 L (150-450) k/uL Neutrophils # 20.5 H (1.3-7.7) k/uL Neutrophils # (Manual) (1.3-7.7) k/uL Monocytes # (Manual) (0-1.0) k/uL Myelocytes # (Manual) (0) k/uL Macrocytosis Marked A PT (9.0-12.0) sec INR (<1.2) ABG pCO2 (35-45) mmHg ABG pO2 (83-108) mmHg Sodium 146 H (137-145) mmol/L Potassium 3.4 L (3.5-5.1) mmol/L Chloride 121 H (98-107) mmol/L BUN 54 H (9-20) mg/dL Glucose 142 H (74-99) mg/dL POC Glucose (mg/dL) 166 H (75-99) mg/dL Calcium 7.8 L (8.4-10.2) mg/dL Total Bilirubin 4.7 H (0.2-1.3) mg/dL AST 151 H (17-59) U/L ALT 81 H (4-49) U/L Alkaline Phosphatase 127 H (38-126) U/L Total Protein 4.6 L (6.3-8.2) g/dL Albumin 1.9 L (3.5-5.0) g/dL Crossmatch 03/07/20 03/07/20 Range/Units 10:00 10:00 WBC 23.3 H (3.8-10.6) k/uL RBC 2.00 L (4.30-5.90) m/uL Hgb 6.9 L* (13.0-17.5) gm/dL Hct 20.7 L (39.0-53.0) % MCV 103.7 H (80.0-100.0) fL MCH (25.0-35.0) pg RDW 23.6 H (11.5-15.5) % Plt Count 70 L (150-450) k/uL Neutrophils # (1.3-7.7) k/uL Neutrophils # (Manual) 18.17 H (1.3-7.7) k/uL Monocytes # (Manual) 1.40 H (0-1.0) k/uL Myelocytes # (Manual) 0.47 H (0) k/uL Macrocytosis Marked A PT 15.2 H (9.0-12.0) sec INR 1.5 H (<1.2) ABG pCO2 (35-45) mmHg ABG pO2 (83-108) mmHg Sodium (137-145) mmol/L Potassium (3.5-5.1) mmol/L Chloride (98-107) mmol/L BUN (9-20) mg/dL Glucose (74-99) mg/dL POC Glucose (mg/dL) (75-99) mg/dL Calcium (8.4-10.2) mg/dL Total Bilirubin (0.2-1.3) mg/dL AST (17-59) U/L ALT (4-49) U/L Alkaline Phosphatase (38-126) U/L Total Protein (6.3-8.2) g/dL Albumin (3.5-5.0) g/dL Crossmatch Microbiology - Last 24 Hours (Table) 03/04/20 14:25 Blood Culture - Preliminary Blood No Growth after 48 hours 03/04/20 14:45 Blood Culture - Preliminary Blood No Growth after 48 hours 03/05/20 10:08 Catheter Tip Culture - Preliminary Catheter Tip 03/05/20 10:08 Catheter Tip Culture - Preliminary Catheter Tip 03/04/20 11:00 Gram Stain - Final Sputum Sputum Culture - Final Melisa albicans Melisa glabrata 03/04/20 10:10 Urine Culture - Final Urine,Catheterized Melisa albicans Assessment and Plan Assessment: Acute hypoxic respiratory failure, suspect aspiration pneumonia, inability to wean, status post tracheostomy tube placement post PEG tube placement. On 03/06/2020 the patient developed significant bleeding and from the tracheostomy tube site. He was taken to the operating room and had a tracheostomy tube change out along with control of the bleeding vessels. Acute anemia secondary to above currently receiving his second unit of packed red blood cells and he did receive 4 units of fresh frozen plasma and 5 units of platelets yesterday. Current hemoglobin 6.9. Platelet count 70,000. Acute sepsis, possible septic shock, patient required pressors which have been resumed on 03/06/2020 currently at 10 mcg/m of norepinephrine. likely source is aspiration pneumonia, although abdominal source is not entirely ruled out. Blood cultures negative and sputum cultures with Melisa Alcohol liver disease with ascites. Jaundice, and elevated liver enzymes. Blood loss anemia, most likely the patient has acute or subacute GI bleeding, GI is following. Acute hepatic encephalopathy with significantly elevated ammonia level. Slightly increased today compared to yesterday, it is 73. Recent history of fall about 2 months ago, and multiple right-sided rib fractures. History of alcoholic neuropathy. History of pericarditis Chronic back pain History of restless leg syndrome. Acute kidney injury secondary to sepsis and septic shock. Strongly doubt hepatorenal syndrome. Plan The patient was seen and evaluated by Dr. Kee Chest x-ray, ABGs and labs reviewed Tracheostomy tube changed out with control of bleeding yesterday Continue with blood products Continue nutritional support Condition remains quite guarded and poor Referral to select specialty for long-term weaning We'll continue to follow Critical care time 35 minutes I, the cosigning physician, performed a history & physical examination of the patient. Lungs sounds with crackles in the bilateral posterior bases. Maintaining good O2 saturations in the 90s on 50% FiO2 via the mechanical ventilator. I discussed the assessment and plan of care with my nurse practitioner, Pallavi Gunter. I attest to the above note as dictated by her. Time with Patient: Greater than 30
[2020-03-07] MEDS: FUROSEMIDE 10 MG/ML 4 ML VIAL IV SCH ×2 (11:40→21:03)
[2020-03-07 12:53] LABS: Glucose,Whole Blood 173 mg/dL (75-99)
[2020-03-07 17:04] LABS: Glucose,Whole Blood 148 mg/dL (75-99)
[2020-03-07] MEDS: ANIDULAFUNGIN 100 MG in SODIUM CHLORIDE 0.9% 100 ML IVPB SCH (17:12)
[2020-03-07 17:26] LABS: Anisocytosis Moderate; Basophils # (A) 0.1 k/uL (0-0.2); Basophils % (A) 0 %; Eosinophils # (A) 0.4 k/uL (0-0.7); Eosinophils % (A) 2 %; Hypochromasia Slight; Lymphocytes # (A) 2.4 k/uL (1.0-4.8); Lymphocytes % (A) 11 %; MCHC 32.1 g/dL (31.0-37.0); MCV 99.7 fL (80.0-100.0); Macrocytosis Moderate; Mean Platelet Volume 11.9; Monocytes # (A) 0.7 k/uL (0-1.0); Monocytes % (A) 3 %; Neutrophils # (A) 17.2 k/uL (1.3-7.7); Neutrophils % (A) 81 %; Poikilocytosis Moderate; RBC 2.51 m/uL (4.30-5.90); WBC 21.2 k/uL (3.8-10.6)
[2020-03-07 19:17] LABS: Platelet Count 58 k/uL (150-450)
[2020-03-08 00:08] LABS: Glucose,Whole Blood 183 mg/dL (75-99)
[2020-03-08] MEDS: PROPOFOL 1,000 MG in EMPTY BAG 1 BAG IV SCH ×4 (01:24→23:20)
[2020-03-08] MEDS: CISATRACURIUM 200 MG in SODIUM CHLORIDE 0.9% 180 ML IV SCH (01:25)
[2020-03-08] MEDS: INSULIN ASPART (NovoLOG) 100 UNIT/ML VIAL SQ SCH ×5 (01:26→23:26)
[2020-03-08] MEDS: IPRATROPIUM-ALBUTEROL 3 ML NEB INHALATION SCH ×5 (03:29→20:09)
[2020-03-08 05:05] LABS: Glucose,Whole Blood 159 mg/dL (75-99)
[2020-03-08 05:17] LABS: ABG Base Excess -2.8 mmol/L; ABG HCO3 22 mmol/L (21-25); ABG Oxygen Saturation 97.4 % (94-97); ABG PCO2 35 mmHg (35-45); ABG PO2 87 mmHg (83-108); ABG TCO2 23 mmol/L (19-24)
[2020-03-08 05:18] LABS: Anisocytosis Moderate; Basophils # (A) 0.1 k/uL (0-0.2); Basophils % (A) 0 %; Eosinophils # (A) 0.3 k/uL (0-0.7); Eosinophils % (A) 2 %; HCT 24.7 % (39.0-53.0); HGB 7.9 gm/dL (13.0-17.5); Hypochromasia Slight; Lymphocytes # (A) 2.5 k/uL (1.0-4.8); Lymphocytes % (A) 12 %; MCH 32.3 pg (25.0-35.0); MCV 100.9 fL (80.0-100.0); Macrocytosis Marked; Mean Platelet Volume 12.1; Monocytes # (A) 0.7 k/uL (0-1.0); Monocytes % (A) 4 %; Neutrophils # (A) 16.3 k/uL (1.3-7.7); Neutrophils % (A) 80 %; Poikilocytosis Moderate; RBC 2.44 m/uL (4.30-5.90); RDW 23.4 % (11.5-15.5); WBC 20.3 k/uL (3.8-10.6)
[2020-03-08 05:20] LABS: Allen Test Performed? no
[2020-03-08 05:21] LABS: Platelet Count 64 k/uL (150-450)
[2020-03-08 06:06] LABS: Large Platelets Present
[2020-03-08 06:07] LABS: Polychromasia Present
[2020-03-08 06:32] LABS: Albumin 1.9 g/dL (3.5-5.0); Calcium 7.8 mg/dL (8.4-10.2); Potassium 3.2 mmol/L (3.5-5.1); Total Protein 4.7 g/dL (6.3-8.2)
--- NOTE | 2020-03-08 06:57 | XR ---
EXAMINATION TYPE: XR chest 1V portable DATE OF EXAM: 03/08/2020 COMPARISON: 03/07/2020 HISTORY: SOB, Follow Up FINDINGS: Indwelling tubes and catheters are unchanged. No change in scattered infiltrates. Stable appearance of the cardio-mediastinal structures at this time. Pleural effusion unchanged. IMPRESSION: 1. Stable portable chest. Clinical correlation and follow up until resolution is recommended.
[2020-03-08] MEDS: POTASSIUM CHLORIDE ER 20 MEQ TAB.ER PO SCH ×2 (07:17→09:16)
[2020-03-08] MEDS ORDERED: LACTULOSE 20 GM/30 ML CUP PO SCH ×2 (09:00)
[2020-03-08] MEDS: CHLORHEXIDINE GLUCONATE 15 ML CUP MUCOUS MEM SCH ×2 (09:46→20:55)
[2020-03-08] MEDS: PANTOPRAZOLE 40 MG/10 ML VIAL IVP SCH ×2 (09:46→20:55)
[2020-03-08] MEDS: LACTULOSE 20 GM/30 ML CUP PO SCH (09:46)
[2020-03-08] MEDS: FUROSEMIDE 10 MG/ML 4 ML VIAL IV SCH ×2 (09:46→20:55)
[2020-03-08] MEDS: RIFAXIMIN 550 MG TABLET PO SCH (09:47)
[2020-03-08] MEDS ORDERED: POTASSIUM BICARBONATE/CIT AC 20 MEQ TABLET.EFF NG-TUBE SCH (10:00)
[2020-03-08] MEDS: DEXTROSE 5% IN WATER 1,000 ML IV SCH ×2 (10:36→23:22)
--- NOTE | 2020-03-08 10:49 | P.PN ---
<Adelaida Langley - Last Filed: 03/08/20 10:45> Subjective Progress Note Date: 03/08/20 CHIEF COMPLAINT: Trach and PEG HISTORY OF PRESENT ILLNESS: Patient is status post trach and PEG with Dr. Abraham. Patient is also status post tracheostomy removal and replacement with control of bleeding on 03/06/[address] Nickerson. Patient examined today the intensive care unit. Tube feedings are infusing at 55 mL an hour. Trach without evidence of further active bleeding-there is a small amount of serosanguineous drainage. Hemoglobin 7.9. PHYSICAL EXAM: VITAL SIGNS: Reviewed. GENERAL: Well-developed in no acute distress. HEENT: Trach noted with no gross bleeding visualized. No sclera icterus. Extraocular movements grossly intact. Moist buccal mucosa. Head is atraumatic, normocephalic. ABDOMEN: Soft. Nondistended. Nontender. PEG tube intact. NEUROLOGIC: Sedated on mechanical ventilation ASSESSMENT: 1. Acute hypoxic respiratory failure 2. Status post trach and PEG with subsequent tracheostomy site bleeding PLAN: -Ventilator management per pulmonary -Monitor hemoglobin -Tube feedings as tolerated Nurse practitioner note has been reviewed by physician. Signing provider agrees with the documented findings, assessment, and plan of care. Objective - Vital Signs Vital signs: Vital Signs Temp 98.2 F 03/08/20 08:00 Pulse 124 H 03/08/20 10:00 Resp 20 03/08/20 10:00 BP 124/61 03/08/20 10:00 Pulse Ox 98 03/08/20 10:00 Intake & Output 03/07/20 03/08/20 03/08/20 18:59 06:59 18:59 Intake Total 1956.290 0037.892 377.012 Output Total 2064 2031 333 Balance -204.859 -691.108 44.012 Weight 91.2 kg Intake: IV 312 312 104 0.9 NS 240 240 80 Normal Saline Pressure 72 72 24 Bag Intake, IV Titration 428.141 258.892 163.012 Amount Norepinephrine 8 mg In 128.141 68.194 61.665 Sodium Chloride 0.9% 250 ml @ 0.05 MCG/KG/MIN 8. 872 mls/hr IV .Q24H [facility] Rx#:[id number] Propofol 1,000 mg In 300 190.698 101.347 Empty Bag 1 bag @ Titrate IV .Q0M [facility] Rx#: [id number] Tube Feeding 570 770 110 Blood Product 250 Rc Cpd Unit 250 [id number] Other 300 Output: Urine 865 1332 333 Stool 1200 700 Other: Voiding Method Indwelling Catheter Indwelling Catheter ABP, PAP, CO, CI - Last Documented Arterial Blood Pressure 140/51 - Labs CBC & Chem 7: 03/08/20 05:00 03/08/20 05:00 Labs: Abnormal Lab Results - Last 24 Hours (Table) 03/06/20 03/07/20 03/07/20 Range/Units 10:50 12:51 17:02 WBC (3.8-10.6) k/uL RBC (4.30-5.90) m/uL Hgb (13.0-17.5) gm/dL Hct (39.0-53.0) % MCV (80.0-100.0) fL RDW (11.5-15.5) % Plt Count (150-450) k/uL Neutrophils # (1.3-7.7) k/uL Macrocytosis ABG O2 Saturation (94-97) % Sodium (137-145) mmol/L Potassium (3.5-5.1) mmol/L Chloride (98-107) mmol/L BUN (9-20) mg/dL Glucose (74-99) mg/dL POC Glucose (mg/dL) 173 H 148 H (75-99) mg/dL Calcium (8.4-10.2) mg/dL Total Bilirubin (0.2-1.3) mg/dL AST (17-59) U/L ALT (4-49) U/L Alkaline Phosphatase (38-126) U/L Ammonia (<30) umol/L Total Protein (6.3-8.2) g/dL Albumin (3.5-5.0) g/dL Crossmatch See Detail 03/07/20 03/08/20 03/08/20 Range/Units 17:17 00:06 05:00 WBC 21.2 H 20.3 H (3.8-10.6) k/uL RBC 2.51 L 2.44 L (4.30-5.90) m/uL Hgb 8.0 L 7.9 L (13.0-17.5) gm/dL Hct 25.0 L 24.7 L (39.0-53.0) % MCV 100.9 H (80.0-100.0) fL RDW 23.0 H 23.4 H (11.5-15.5) % Plt Count 58 L 64 L (150-450) k/uL Neutrophils # 17.2 H 16.3 H (1.3-7.7) k/uL Macrocytosis Marked A ABG O2 Saturation (94-97) % Sodium (137-145) mmol/L Potassium (3.5-5.1) mmol/L Chloride (98-107) mmol/L BUN (9-20) mg/dL Glucose (74-99) mg/dL POC Glucose (mg/dL) 183 H (75-99) mg/dL Calcium (8.4-10.2) mg/dL Total Bilirubin (0.2-1.3) mg/dL AST (17-59) U/L ALT (4-49) U/L Alkaline Phosphatase (38-126) U/L Ammonia (<30) umol/L Total Protein (6.3-8.2) g/dL Albumin (3.5-5.0) g/dL Crossmatch 03/08/20 03/08/20 03/08/20 Range/Units 05:00 05:03 05:09 WBC (3.8-10.6) k/uL RBC (4.30-5.90) m/uL Hgb (13.0-17.5) gm/dL Hct (39.0-53.0) % MCV (80.0-100.0) fL RDW (11.5-15.5) % Plt Count (150-450) k/uL Neutrophils # (1.3-7.7) k/uL Macrocytosis ABG O2 Saturation 97.4 H (94-97) % Sodium 148 H (137-145) mmol/L Potassium 3.2 L (3.5-5.1) mmol/L Chloride 122 H (98-107) mmol/L BUN 56 H (9-20) mg/dL Glucose 147 H (74-99) mg/dL POC Glucose (mg/dL) 159 H (75-99) mg/dL Calcium 7.8 L (8.4-10.2) mg/dL Total Bilirubin 5.0 H (0.2-1.3) mg/dL AST 140 H (17-59) U/L ALT 77 H (4-49) U/L Alkaline Phosphatase 173 H (38-126) U/L Ammonia (<30) umol/L Total Protein 4.7 L (6.3-8.2) g/dL Albumin 1.9 L (3.5-5.0) g/dL Crossmatch 03/08/20 Range/Units 05:20 WBC (3.8-10.6) k/uL RBC (4.30-5.90) m/uL Hgb (13.0-17.5) gm/dL Hct (39.0-53.0) % MCV (80.0-100.0) fL RDW (11.5-15.5) % Plt Count (150-450) k/uL Neutrophils # (1.3-7.7) k/uL Macrocytosis ABG O2 Saturation (94-97) % Sodium (137-145) mmol/L Potassium (3.5-5.1) mmol/L Chloride (98-107) mmol/L BUN (9-20) mg/dL Glucose (74-99) mg/dL POC Glucose (mg/dL) (75-99) mg/dL Calcium (8.4-10.2) mg/dL Total Bilirubin (0.2-1.3) mg/dL AST (17-59) U/L ALT (4-49) U/L Alkaline Phosphatase (38-126) U/L Ammonia 59 H (<30) umol/L Total Protein (6.3-8.2) g/dL Albumin (3.5-5.0) g/dL Crossmatch Microbiology - Last 24 Hours (Table) 03/04/20 14:25 Blood Culture - Preliminary Blood No Growth after 72 hours 03/04/20 14:45 Blood Culture - Preliminary Blood No Growth after 72 hours 03/05/20 10:08 Catheter Tip Culture - Final Catheter Tip 03/05/20 10:08 Catheter Tip Culture - Final Catheter Tip <Chris Nickerson - Last Filed: 03/08/20 12:59> Subjective As above. Patient doing better. No active bleeding. Will follow intermittentl y. Objective - Vital Signs Vital signs: Vital Signs Temp 98.2 F 03/08/20 08:00 Pulse 114 H 03/08/20 12:12 Resp 15 03/08/20 12:00 BP 124/61 03/08/20 12:00 Pulse Ox 100 03/08/20 12:00 Intake & Output 03/07/20 03/08/20 03/08/20 18:59 06:59 18:59 Intake Total 6686.762 2426.892 468.012 Output Total 5 2 683 Balance -204.859 -691.108 -214.988 Weight 91.2 kg 91.2 kg Intake: IV 312 312 195 0.9 NS 240 240 90 Dextrose 5% in Water 1, 75 000 ml @ 75 mls/hr IV . [id number] [facility] Rx#:[id number] Normal Saline Pressure 72 72 30 Bag Intake, IV Titration 428.141 258.892 163.012 Amount Norepinephrine 8 mg In 128.141 68.194 61.665 Sodium Chloride 0.9% 250 ml @ 0.05 MCG/KG/MIN 8. 872 mls/hr IV .Q24H [facility] Rx#:[id number] Propofol 1,000 mg In 300 190.698 101.347 Empty Bag 1 bag @ Titrate IV .Q0M [facility] Rx#: [id number] Tube Feeding 570 770 110 Blood Product 250 Rc Cpd Unit 250 [id number] Other 300 Output: Urine 865 1332 683 Stool 1200 700 Other: Voiding Method Indwelling Catheter Indwelling Catheter Indwelling Catheter ABP, PAP, CO, CI - Last Documented Arterial Blood Pressure 124/40 - Labs CBC & Chem 7: 03/08/20 05:00 03/08/20 05:00 Labs: Abnormal Lab Results - Last 24 Hours (Table) 03/06/20 03/07/20 03/07/20 Range/Units 10:50 17:02 17:17 WBC 21.2 H (3.8-10.6) k/uL RBC 2.51 L (4.30-5.90) m/uL Hgb 8.0 L (13.0-17.5) gm/dL Hct 25.0 L (39.0-53.0) % MCV (80.0-100.0) fL RDW 23.0 H (11.5-15.5) % Plt Count 58 L (150-450) k/uL Neutrophils # 17.2 H (1.3-7.7) k/uL Macrocytosis ABG O2 Saturation (94-97) % Sodium (137-145) mmol/L Potassium (3.5-5.1) mmol/L Chloride (98-107) mmol/L BUN (9-20) mg/dL Glucose (74-99) mg/dL POC Glucose (mg/dL) 148 H (75-99) mg/dL Calcium (8.4-10.2) mg/dL Total Bilirubin (0.2-1.3) mg/dL AST (17-59) U/L ALT (4-49) U/L Alkaline Phosphatase (38-126) U/L Ammonia (<30) umol/L Total Protein (6.3-8.2) g/dL Albumin (3.5-5.0) g/dL Crossmatch See Detail 03/08/20 03/08/20 03/08/20 Range/Units 00:06 05:00 05:00 WBC 20.3 H (3.8-10.6) k/uL RBC 2.44 L (4.30-5.90) m/uL Hgb 7.9 L (13.0-17.5) gm/dL Hct 24.7 L (39.0-53.0) % MCV 100.9 H (80.0-100.0) fL RDW 23.4 H (11.5-15.5) % Plt Count 64 L (150-450) k/uL Neutrophils # 16.3 H (1.3-7.7) k/uL Macrocytosis Marked A ABG O2 Saturation (94-97) % Sodium 148 H (137-145) mmol/L Potassium 3.2 L (3.5-5.1) mmol/L Chloride 122 H (98-107) mmol/L BUN 56 H (9-20) mg/dL Glucose 147 H (74-99) mg/dL POC Glucose (mg/dL) 183 H (75-99) mg/dL Calcium 7.8 L (8.4-10.2) mg/dL Total Bilirubin 5.0 H (0.2-1.3) mg/dL AST 140 H (17-59) U/L ALT 77 H (4-49) U/L Alkaline Phosphatase 173 H (38-126) U/L Ammonia (<30) umol/L Total Protein 4.7 L (6.3-8.2) g/dL Albumin 1.9 L (3.5-5.0) g/dL Crossmatch 03/08/20 03/08/20 03/08/20 Range/Units 05:03 05:09 05:20 WBC (3.8-10.6) k/uL RBC (4.30-5.90) m/uL Hgb (13.0-17.5) gm/dL Hct (39.0-53.0) % MCV (80.0-100.0) fL RDW (11.5-15.5) % Plt Count (150-450) k/uL Neutrophils # (1.3-7.7) k/uL Macrocytosis ABG O2 Saturation 97.4 H (94-97) % Sodium (137-145) mmol/L Potassium (3.5-5.1) mmol/L Chloride (98-107) mmol/L BUN (9-20) mg/dL Glucose (74-99) mg/dL POC Glucose (mg/dL) 159 H (75-99) mg/dL Calcium (8.4-10.2) mg/dL Total Bilirubin (0.2-1.3) mg/dL AST (17-59) U/L ALT (4-49) U/L Alkaline Phosphatase (38-126) U/L Ammonia 59 H (<30) umol/L Total Protein (6.3-8.2) g/dL Albumin (3.5-5.0) g/dL Crossmatch 03/08/20 Range/Units 11:54 WBC (3.8-10.6) k/uL RBC (4.30-5.90) m/uL Hgb (13.0-17.5) gm/dL Hct (39.0-53.0) % MCV (80.0-100.0) fL RDW (11.5-15.5) % Plt Count (150-450) k/uL Neutrophils # (1.3-7.7) k/uL Macrocytosis ABG O2 Saturation (94-97) % Sodium (137-145) mmol/L Potassium (3.5-5.1) mmol/L Chloride (98-107) mmol/L BUN (9-20) mg/dL Glucose (74-99) mg/dL POC Glucose (mg/dL) 193 H (75-99) mg/dL Calcium (8.4-10.2) mg/dL Total Bilirubin (0.2-1.3) mg/dL AST (17-59) U/L ALT (4-49) U/L Alkaline Phosphatase (38-126) U/L Ammonia (<30) umol/L Total Protein (6.3-8.2) g/dL Albumin (3.5-5.0) g/dL Crossmatch Microbiology - Last 24 Hours (Table) 03/04/20 14:25 Blood Culture - Preliminary Blood No Growth after 72 hours 03/04/20 14:45 Blood Culture - Preliminary Blood No Growth after 72 hours 03/05/20 10:08 Catheter Tip Culture - Final Catheter Tip 03/05/20 10:08 Catheter Tip Culture - Final Catheter Tip Assessment and Plan (1) Tracheostomy hemorrhage Current Visit: Yes Status: Acute Code(s): J95.01 - HEMORRHAGE FROM TRACHEOSTOMY STOMA SNOMED Code(s): 69989432
[2020-03-08 11:56] LABS: Glucose,Whole Blood 193 mg/dL (75-99)
--- NOTE | 2020-03-08 13:08 | P.PN ---
Subjective Progress Note Date: 03/08/20 On today's evaluation of 03/08/2020, the patient is being seen in follow-up. This is my first encounter with the patient. I was able to review the records and events that occurred as the patient is currently on a mechanical ventilator and the patient has a cystic estimate of in place and a PEG tube in place. The patient has a history of liver cirrhosis. The patient has been in respiratory failure requiring tracheostomy tube insertion and ultimately there was some issues with a tracheostomy tube where there was significant amount of bleeding from the tracheostomy stoma on 03/06/2020. The patient was taken to the operating room and control of bleeding was done and the patient currently has a shock tracheostomy tube in place #8. Activity was also in place. The patient is sedated with propofol of alcohol the rate of 50 g per KG pigmented. The patient is on normal saline at the rate of 10 mL an hour. The patient is on levo fed at the rate of 03 g per KG pigmented. The patient is also receiving high protein vital for enteral nutrition at the rate of 55 mL an hour. The patient is able to tolerate the tube feeds well. Nevertheless, he is having significant amount of liquidy diarrhea which is large volume and this has resulted in development of intravascular volume depletion and electrodes imbalance. Sodium level is up to 148. He is on assist control mode of ventilation at the rate of 12 with tidal volume of 450 and FiO2 of 50% with D5. The blood gases from today showed a pH of 7.4 with a pCO2 of 35 and a pO2 of 87. Patient had a follow-up chest x-ray today that showed indwelling catheters are in place and they're unchanged compared to yesterday. Pleural effusion is u nchanged. There is stable appearance of the cardia mediastinal structures at this point in time. The findings on chest x-rays essentially stable. He is afebrile. The antibiotic coverage includes Eraxis and infectious diseases on the case. Most recent blood cultures and catheter tip cultures of been negative. The sputum culture was positive for Melisa albicans. There was also Melisa glabrata. Urine culture was also positive for Melisa albicans. He does have significant amount of third spacing and anasarca as the patient has scrotal swelling, 5 swelling, lower extremity swelling, upper extremity swelling. He is currently on IV Lasix. He has been in a positive fluid balance. His weight is currently up to 91 kg and the patient's BMI 31.5. He is receiving Lasix 40 mg IV every 12 hours. The patient is also on Xifaxan regarding Her neck encephalopathy in addition to lactulose. The most recent ammonia level was at 59. Objective - Vital Signs Vital signs: Vital Signs Temp 98.2 F 03/08/20 08:00 Pulse 114 H 03/08/20 12:12 Resp 15 03/08/20 12:00 BP 124/61 03/08/20 12:00 Pulse Ox 100 03/08/20 12:00 Intake & Output 03/07/20 03/08/20 03/08/20 18:59 06:59 18:59 Intake Total 5906.259 6734.892 468.012 Output Total 2065 2032 683 Balance -204.859 -691.108 -214.988 Weight 91.2 kg 91.2 kg Intake: IV 312 312 195 0.9 NS 240 240 90 Dextrose 5% in Water 1, 75 000 ml @ 75 mls/hr IV . [id number] JARED Rx#:[id number] Normal Saline Pressure 72 72 30 Bag Intake, IV Titration 428.141 258.892 163.012 Amount Norepinephrine 8 mg In 128.141 68.194 61.665 Sodium Chloride 0.9% 250 ml @ 0.05 MCG/KG/MIN 8. 872 mls/hr IV .Q24H JARED Rx#:[id number] Propofol 1,000 mg In 300 190.698 101.347 Empty Bag 1 bag @ Titrate IV .Q0M JARED Rx#: [id number] Tube Feeding 570 770 110 Blood Product 250 Rc Cpd Unit 250 [id number] Other 300 Output: Urine 865 1332 683 Stool 1200 700 Other: Voiding Method Indwelling Catheter Indwelling Catheter Indwelling Catheter ABP, PAP, CO, CI - Last Documented Arterial Blood Pressure 124/40 - Exam GENERAL EXAM: On mechanical ventilator, minimally responsive 54-year-old gentleman, comfortable in no apparent distress. This morning, the patient is sedated with propofol. Tracheostomy tube is in place and there is no signs of an acute bleed. They tracheostomy tube is well sutured to the neck area. HEAD: Normocephalic. EYES: Normal reaction of pupils, equal size. NOSE: Clear with pink turbinates. THROAT: Tracheostomy tube secured in place. The patient has a [place] #[address] [place] [address]. NECK: No masses, no JVD. CHEST: No chest wall deformity. LUNGS: Equal air entry with crackles at the bilateral posterior bases. CVS: S1 and S2 normal with no audible murmur, regular rhythm. ABDOMEN: PEG tube exit site clean and dry, normal bowel sounds, no guarding or rigidity. SPINE: No scoliosis or deformity SKIN: No rashes CENTRAL NERVOUS SYSTEM: Sedated, tone is normal in all 4 extremities. The patient is in the process of obtaining a sedation holiday. EXTREMITIES: The patient has significant peripheral edema both in upper and lower extremities and the patient has diffuse anasarca in addition to scrotal edema. No cyanosis. No clubbing. - Labs CBC & Chem 7: 03/08/20 05:00 03/08/20 05:00 Labs: Abnormal Lab Results - Last 24 Hours (Table) 03/06/20 03/07/20 03/07/20 Range/Units 10:50 17:02 17:17 WBC 21.2 H (3.8-10.6) k/uL RBC 2.51 L (4.30-5.90) m/uL Hgb 8.0 L (13.0-17.5) gm/dL Hct 25.0 L (39.0-53.0) % MCV (80.0-100.0) fL RDW 23.0 H (11.5-15.5) % Plt Count 58 L (150-450) k/uL Neutrophils # 17.2 H (1.3-7.7) k/uL Macrocytosis ABG O2 Saturation (94-97) % Sodium (137-145) mmol/L Potassium (3.5-5.1) mmol/L Chloride (98-107) mmol/L BUN (9-20) mg/dL Glucose (74-99) mg/dL POC Glucose (mg/dL) 148 H (75-99) mg/dL Calcium (8.4-10.2) mg/dL Total Bilirubin (0.2-1.3) mg/dL AST (17-59) U/L ALT (4-49) U/L Alkaline Phosphatase (38-126) U/L Ammonia (<30) umol/L Total Protein (6.3-8.2) g/dL Albumin (3.5-5.0) g/dL Crossmatch See Detail 03/08/20 03/08/20 03/08/20 Range/Units 00:06 05:00 05:00 WBC 20.3 H (3.8-10.6) k/uL RBC 2.44 L (4.30-5.90) m/uL Hgb 7.9 L (13.0-17.5) gm/dL Hct 24.7 L (39.0-53.0) % MCV 100.9 H (80.0-100.0) fL RDW 23.4 H (11.5-15.5) % Plt Count 64 L (150-450) k/uL Neutrophils # 16.3 H (1.3-7.7) k/uL Macrocytosis Marked A ABG O2 Saturation (94-97) % Sodium 148 H (137-145) mmol/L Potassium 3.2 L (3.5-5.1) mmol/L Chloride 122 H (98-107) mmol/L BUN 56 H (9-20) mg/dL Glucose 147 H (74-99) mg/dL POC Glucose (mg/dL) 183 H (75-99) mg/dL Calcium 7.8 L (8.4-10.2) mg/dL Total Bilirubin 5.0 H (0.2-1.3) mg/dL AST 140 H (17-59) U/L ALT 77 H (4-49) U/L Alkaline Phosphatase 173 H (38-126) U/L Ammonia (<30) umol/L Total Protein 4.7 L (6.3-8.2) g/dL Albumin 1.9 L (3.5-5.0) g/dL Crossmatch 03/08/20 03/08/20 03/08/20 Range/Units 05:03 05:09 05:20 WBC (3.8-10.6) k/uL RBC (4.30-5.90) m/uL Hgb (13.0-17.5) gm/dL Hct (39.0-53.0) % MCV (80.0-100.0) fL RDW (11.5-15.5) % Plt Count (150-450) k/uL Neutrophils # (1.3-7.7) k/uL Macrocytosis ABG O2 Saturation 97.4 H (94-97) % Sodium (137-145) mmol/L Potassium (3.5-5.1) mmol/L Chloride (98-107) mmol/L BUN (9-20) mg/dL Glucose (74-99) mg/dL POC Glucose (mg/dL) 159 H (75-99) mg/dL Calcium (8.4-10.2) mg/dL Total Bilirubin (0.2-1.3) mg/dL AST (17-59) U/L ALT (4-49) U/L Alkaline Phosphatase (38-126) U/L Ammonia 59 H (<30) umol/L Total Protein (6.3-8.2) g/dL Albumin (3.5-5.0) g/dL Crossmatch 03/08/20 Range/Units 11:54 WBC (3.8-10.6) k/uL RBC (4.30-5.90) m/uL Hgb (13.0-17.5) gm/dL Hct (39.0-53.0) % MCV (80.0-100.0) fL RDW (11.5-15.5) % Plt Count (150-450) k/uL Neutrophils # (1.3-7.7) k/uL Macrocytosis ABG O2 Saturation (94-97) % Sodium (137-145) mmol/L Potassium (3.5-5.1) mmol/L Chloride (98-107) mmol/L BUN (9-20) mg/dL Glucose (74-99) mg/dL POC Glucose (mg/dL) 193 H (75-99) mg/dL Calcium (8.4-10.2) mg/dL Total Bilirubin (0.2-1.3) mg/dL AST (17-59) U/L ALT (4-49) U/L Alkaline Phosphatase (38-126) U/L Ammonia (<30) umol/L Total Protein (6.3-8.2) g/dL Albumin (3.5-5.0) g/dL Crossmatch Microbiology - Last 24 Hours (Table) 03/04/20 14:25 Blood Culture - Preliminary Blood No Growth after 72 hours 03/04/20 14:45 Blood Culture - Preliminary Blood No Growth after 72 hours 03/05/20 10:08 Catheter Tip Culture - Final Catheter Tip 03/05/20 10:08 Catheter Tip Culture - Final Catheter Tip Assessment and Plan Plan: 1 Acute hypoxic respiratory failure, suspect aspiration pneumonia, inability to wean, status post tracheostomy tube placement post PEG tube placement. On 03/06/2020 the patient developed significant bleeding and from the tracheostomy tube site. He was taken to the operating room and had a tracheostomy tube change out along with control of the bleeding vessels. The patient is adequately ventilated for now. Chest x-ray was noted. Blood gases was noted. No signs of any acute bleeds from the tracheostomy stoma. 2 Acute anemia secondary to above currently receiving his second unit of packed red blood cells and he did receive 4 units of fresh frozen plasma and 5 units of platelets . The patient's hemoglobin stable at 7.9 3 hypotension/shock. This is likely secondary to intravascular volume depletion time of bleeds. Septic shock cannot be completely ruled out is another contribu ting factor. Hemodynamically more stable and the patient is only on 3 mcg/kg per minute of norepinephrine infusion for now. Repeat blood cultures of been negative. Sputum cultures positive for Melisa glabrata and Melisa albicans. Urine cultures positive for Albicans. 4 Alcohol liver disease with ascites. Jaundice, and elevated liver enzymes and stigmata of chronic liver failure with anasarca. The MRI level is elevated at 59. Patient is currently on a combination of Xifaxan and lactulose. 5 hypernatremia secondary to aggressive use of lactulose and intravascular volume depletion with third spacing 6 chronic hepatic encephalopathy with elevated ammonia level which is improving his level is down to 59 7 Recent history of fall about 2 months ago, and multiple right-sided rib fra ctures. 8History of alcoholic neuropathy. 9 History of pericarditis 10 Chronic back pain 11 History of restless leg syndrome. 12 Acute kidney injury secondary to sepsis and intravascular volume depletion, creatinine is improving is down to 1.17 13 hyperchloremic hypernatremia secondary to above Plan Sedation holiday Assessment and status Continue vent support Add D5 water at the rate of 75 mL an hour Monitor sodium level Drop the lactulose to when necessary as the patient is having considerable amount of diarrhea for now Continue Xifaxan Continue current antibiotic coverage Enteral feeding with vital high protein at the rate of 55 mL an hour Watch for any signs of bleeding from the tracheostomy stoma We'll continue to follow Critically care evaluation was done and more than 30 minutes. Time with Patient: Greater than 30
--- NOTE | 2020-03-08 16:41 | P.PN ---
Subjective Progress Note Date: 03/08/20 This is a 54-year-old gentleman, history of polysubstance abuse including alcohol abuse , falls with recent rib fractures, legally blind, osteoarthritis and multiple other medical issues presented to the ER with changes in mental status 2 days. Drug screen positive for tricyclics and benzos, serum alcohol less than 10. UA reported dark brown cloudy urine with occasional bacteria, hyaline casts, 2 WBCs, trace leukocytes, 4+ bilirubin, negative for nitrates. Ammonia level 91, T bili 14.9, currently 15.8 , elevated LFTs .Gallbladder ultrasound reporting abdominal ascites, abdominal x-ray nonacute, right foot x- ray reported no fracture, soft tissue swelling, EKG reported sinus tachycardia, troponin normal, BNP 910, echo reported normal LV function, EF 60-65% ,lactic acid 2.1 now down to 1.7, BUN 25, creatinine 0.8 chest x-ray reporting moderate pulmonary interstitial and airspace edema significantly worse than yesterday, pulmonary edema. ABGs noted. INR on admission 3.7, down to 2.2 Sepsis protocol, Received IV fluid resuscitation, IV antibiotics, cultures drawn. Developed respiratory failure, requiring intubation during the night. Currently on Sandostatin drip. 3 maroon stools during the night. Received 4 units of FFP and 2 units of packed RBCs to date. Hemoglobin currently 8.5. And had required pressor support with Levophed off since . Maintained on IV fluid resuscitation. Telemetry sinus rhythm. Potassium 3.2, magnesium 1.7. 02/24/2020 chest x-ray reporting persistent bilateral scattered airspace infiltrates, pleural effusion unchanged. Ventilator dependent, on FiO2 of 50 with PEEP increased to 12. Continues on lactulose with ammonia down to 80. T bili decreased to 11.3, LFTs improving. No further maroon stools. Small black stool this morning. Hemoglobin 8.6. Telemetry sinus rhythm to sinus tach. Sandostatin drip discontinued this morning. Last night patient asynchronous with vent, stacking breaths, Nimbex drip initiated. This morning Nimbex discontinued, changed to fentanyl drip. Requiring pressor support, Levophed resumed. Received vitamin K yesterday, INR 2.1. Marginal urine output, IV fluids decreased, and Lasix IV push added to med regime. Tube feedings ordered. Afebrile, WBC 14.7. Sputum culture pending, preliminary blood cultures negative at 48 hours. ABGs noted. 02/25/2020 yesterday Lasix and Aldactone initiated, creatinine mildly worsened up to 1.32. Ammonia increased up to 89, lactulose increased. No further maroon stools, hemoglobin increased to 9.4, platelets increased to 75. T bili trending down, 8.9, LFTs improving. Potassium 3.4. Chest x-ray reporting improving left lower lobe aeration. Right foot evaluated by orthopedic surgery, possible fluid collection, seroma with potential x-ray tomorrow. Tolerating tube feeds with minimal to no residuals, currently at 30 mls per hour with goal of 45. IV steroids added to med regimen with blood sugars increasing. Remains vent dependent with FiO2 at 50/+12 of PEEP. Continues on Levophed, fentanyl, diprovan drips. Afebrile, T-max 99.5, WBC 14.1. 02/26/2020 ABGs unchanged,remains vent dependent, FiO2 50/+12 PEEP. Chest x-ray reporting improvement. Maintained on both Xifaxan & Lactulose, ammonia increasing, beginning to stool. Creatinine trending up 1.4. Hemoglobin decreased to 8.5. INR 1.7 Levophed weaned off this morning. Attempted a sedation holiday for about an hour this morning; patient did not wake up, became agitated, tachycardic, tachypneic with respiratory rate up into the 40s, diprovan/fentanyl drips resumed. Tolerating tube feeds at 40 with goal of 45/minimal to no residual. Orthopedics discussing x-ray and foot possibly tomorrow. Afebrile WBC down to 11. 03/03/2020 patient was trached yesterday, remains vent dependent with FiO2 45%/+5 of PEEP. Chest x-ray suggestive of possible left lower lobe pneumonia, v ersus atelectasis, possible interstitial disease. Scheduled for PEG tube placement today. To date, patient has not tolerated sedation holidays, not following commands, becomes agitated, and becomes asynchronous with the patient. Neurology consulted, EEG completed, results pending. Maintain on D5W with improvement in sodium, Na 146. Currently sedated on Diprovan gtt. telemetry sinus rhythm. Ammonia level LII on lactulose and Xifaxan. 03/04/2020 EGD with PEG tube placement completed at bedside this morning, tolerated procedure well. Like gastroesophageal reflux reported along the anterior abdominal wall. Evaluated by neurology with recommendations noted and appreciated. EEG completed yesterday reporting abnormal, background slowing ,suggestive of generalized cerebral dysfunction seen with toxic metabolic encephalopathy related to diffuse structural brain abnormality, no obvious epileptiform activity seen. Afebrile, WBC continues trending up, currently 24.8, recultured. During sedation holiday patient noted to spontaneously move his right hand, half open his eyes responding to his name. Diprovan has been weaned off this morning. Remains vent dependent with FiO2 40%/+5 of PEEP. Chest x-ray reporting significant interval increase in left basilar airspace disease, possible infectious or aspiration pneumonitis. Ammonia level 42. Receiving potassium supplements for potassium 2.8. Sodium continues improving, 138. 03/05/2020 Remains off sedation X 24 hrs, sensorium slowly improving. Following simple commands ;Opens eyes to name, shakes head yes and no to simple questions. Sinus tachycardia with heart rate in the 110s. Chest x-ray reporting persistent left lower lobe infiltrate, IV push Lasix every 12h initiated. Vent dependent, maintained on FiO2 40%/+5 of PEEP. Significant anasarca. Yesterday PEG tube placed, did not receive any lactulose-current ammonia level 45. Bleeding around tracheostomy site, controlled with multiple packs of gauze, DDAVP. Hemoglobin 8.6, platelets 37 New central line and art line placed. Levophed currently off. T-max 99.7, WBC unchanged 24.6, recultured yesterday, cultures pending.Na 140. 03/08/2020 remains vent dependent with FiO2 50%/+5 of PEEP.. Staff reports patient following simple commands throughout the weekend when off sedation. Currently maintained on Levophed, diprovan, IV fluids of D5W and Eraxis. Re cultured last week, T-max 99.9, WBC trending down ,20.3. Tachycardic in the one-teens to 120s. Hemoglobin 7.9 , platelets 64 .Sodium 148. Potassium 3.2, receiving potassium supplements. Diuresing well on Lasix IV push with 24-hour I&O reflecting a negative fluid balance. Significant stool output/FMS, ammonia level LIX, lactulose decreased. Chest x-ray reporting stable. Creatinine 1.17. Objective - Vital Signs Vital signs: Vital Signs Temp 99.6 F 03/08/20 13:00 Pulse 116 H 03/08/20 13:00 Resp 13 03/08/20 13:00 BP 124/61 03/08/20 12:00 Pulse Ox 98 03/08/20 13:00 Intake & Output 03/07/20 03/08/20 03/08/20 18:59 06:59 18:59 Intake Total 7655.911 0482.892 738.795 Output Total 2065 2032 848 Balance -204.859 -691.108 -109.205 Weight 91.2 kg 91.2 kg Intake: IV 312 312 377 0.9 NS 240 240 110 Dextrose 5% in Water 1, 225 000 ml @ 75 mls/hr IV . [id number] JARED Rx#:[id number] Normal Saline Pressure 72 72 42 Bag Intake, IV Titration 428.141 258.892 251.795 Amount Norepinephrine 8 mg In 128.141 68.194 61.665 Sodium Chloride 0.9% 250 ml @ 0.05 MCG/KG/MIN 8. 872 mls/hr IV .Q24H JARED Rx#:[id number] Propofol 1,000 mg In 300 190.698 190.130 Empty Bag 1 bag @ Titrate IV .Q0M JARED Rx#: [id number] Tube Feeding 570 770 110 Blood Product 250 Rc Cpd Unit 250 [id number] Other 300 Output: Urine 865 1332 848 Stool 1200 700 Other: Voiding Method Indwelling Catheter Indwelling Catheter Indwelling Catheter ABP, PAP, CO, CI - Last Documented Arterial Blood Pressure 130/41 - Exam VITAL SIGNS: As above GENERAL: Sitting up in bed, intubated, sedated, positive anasarca HEENT: Conjunctivae normal. Positive icterus, jaundice NECK: No JVD. No thyroid enlargement. No LNs. Midline tracheostomy CARDIOVASCULAR: S1, S2 regular. Tachycardic, Systolic murmur, RESPIRATION: Clear, with no rhonchi, fine bibasilar crackles, no wheezing. ABDOMEN: Soft, distended, positive bowel sounds. PEG tube present. Scrotal edema Extremities: Positive upper and lower extremity edema, no clubbing, no cyanosis. Right foot dorsal edema with ecchymosis wearing boot. NERVOUS SYSTEM: Unable to assess, on mechanical ventilation, sedated Skin: Warm and dry, no rash - Labs CBC & Chem 7: 03/08/20 05:00 03/08/20 05:00 Labs: Abnormal Lab Results - Last 24 Hours (Table) 03/06/20 03/07/20 03/07/20 Range/Units 10:50 17:02 17:17 WBC 21.2 H (3.8-10.6) k/uL RBC 2.51 L (4.30-5.90) m/uL Hgb 8.0 L (13.0-17.5) gm/dL Hct 25.0 L (39.0-53.0) % MCV (80.0-100.0) fL RDW 23.0 H (11.5-15.5) % Plt Count 58 L (150-450) k/uL Neutrophils # 17.2 H (1.3-7.7) k/uL Macrocytosis ABG O2 Saturation (94-97) % Sodium (137-145) mmol/L Potassium (3.5-5.1) mmol/L Chloride (98-107) mmol/L BUN (9-20) mg/dL Glucose (74-99) mg/dL POC Glucose (mg/dL) 148 H (75-99) mg/dL Calcium (8.4-10.2) mg/dL Total Bilirubin (0.2-1.3) mg/dL AST (17-59) U/L ALT (4-49) U/L Alkaline Phosphatase (38-126) U/L Ammonia (<30) umol/L Total Protein (6.3-8.2) g/dL Albumin (3.5-5.0) g/dL Crossmatch See Detail 03/08/20 03/08/20 03/08/20 Range/Units 00:06 05:00 05:00 WBC 20.3 H (3.8-10.6) k/uL RBC 2.44 L (4.30-5.90) m/uL Hgb 7.9 L (13.0-17.5) gm/dL Hct 24.7 L (39.0-53.0) % MCV 100.9 H (80.0-100.0) fL RDW 23.4 H (11.5-15.5) % Plt Count 64 L (150-450) k/uL Neutrophils # 16.3 H (1.3-7.7) k/uL Macrocytosis Marked A ABG O2 Saturation (94-97) % Sodium 148 H (137-145) mmol/L Potassium 3.2 L (3.5-5.1) mmol/L Chloride 122 H (98-107) mmol/L BUN 56 H (9-20) mg/dL Glucose 147 H (74-99) mg/dL POC Glucose (mg/dL) 183 H (75-99) mg/dL Calcium 7.8 L (8.4-10.2) mg/dL Total Bilirubin 5.0 H (0.2-1.3) mg/dL AST 140 H (17-59) U/L ALT 77 H (4-49) U/L Alkaline Phosphatase 173 H (38-126) U/L Ammonia (<30) umol/L Total Protein 4.7 L (6.3-8.2) g/dL Albumin 1.9 L (3.5-5.0) g/dL Crossmatch 03/08/20 03/08/20 03/08/20 Range/Units 05:03 05:09 05:20 WBC (3.8-10.6) k/uL RBC (4.30-5.90) m/uL Hgb (13.0-17.5) gm/dL Hct (39.0-53.0) % MCV (80.0-100.0) fL RDW (11.5-15.5) % Plt Count (150-450) k/uL Neutrophils # (1.3-7.7) k/uL Macrocytosis ABG O2 Saturation 97.4 H (94-97) % Sodium (137-145) mmol/L Potassium (3.5-5.1) mmol/L Chloride (98-107) mmol/L BUN (9-20) mg/dL Glucose (74-99) mg/dL POC Glucose (mg/dL) 159 H (75-99) mg/dL Calcium (8.4-10.2) mg/dL Total Bilirubin (0.2-1.3) mg/dL AST (17-59) U/L ALT (4-49) U/L Alkaline Phosphatase (38-126) U/L Ammonia 59 H (<30) umol/L Total Protein (6.3-8.2) g/dL Albumin (3.5-5.0) g/dL Crossmatch 03/08/20 Range/Units 11:54 WBC (3.8-10.6) k/uL RBC (4.30-5.90) m/uL Hgb (13.0-17.5) gm/dL Hct (39.0-53.0) % MCV (80.0-100.0) fL RDW (11.5-15.5) % Plt Count (150-450) k/uL Neutrophils # (1.3-7.7) k/uL Macrocytosis ABG O2 Saturation (94-97) % Sodium (137-145) mmol/L Potassium (3.5-5.1) mmol/L Chloride (98-107) mmol/L BUN (9-20) mg/dL Glucose (74-99) mg/dL POC Glucose (mg/dL) 193 H (75-99) mg/dL Calcium (8.4-10.2) mg/dL Total Bilirubin (0.2-1.3) mg/dL AST (17-59) U/L ALT (4-49) U/L Alkaline Phosphatase (38-126) U/L Ammonia (<30) umol/L Total Protein (6.3-8.2) g/dL Albumin (3.5-5.0) g/dL Crossmatch Microbiology - Last 24 Hours (Table) 03/04/20 14:25 Blood Culture - Preliminary Blood No Growth after 72 hours 03/04/20 14:45 Blood Culture - Preliminary Blood No Growth after 72 hours 03/05/20 10:08 Catheter Tip Culture - Final Catheter Tip 03/05/20 10:08 Catheter Tip Culture - Final Catheter Tip Assessment and Plan Assessment: Sepsis secondary to aspiration bilateral pneumonia, possibly abdominal source, Acute hypoxic respiratory failure, related to the above, ventilator dependent, failure to wean, status post tracheostomy. tracheostomy site postop bleeding,unexpected,status post DDAVP , witih tracheostomy removal and replacement, requiring sutures and electrocautery. Septic and hypovolemic shock multifactorial, secondary to bilateral aspiration pneumonia, alcoholic liver disease Septic shock status post pressor support Hypotension, secondary to the above, pressor support dependent secondary to sepsis Acute renal failure multifactorial, secondary to all the above, diuretics Acute GI bleed, possible esophageal varices in a patient with significant alcohol dependence, status post Sandostatin Acute blood loss anemia, status post multiple transfusions of both FFP, packed RBCs Acute Hepatic encephalopathy Acute toxic, metabolic encephalopathy Alcoholic liver disease with ascites Hyperammonia Recent posterior lateral rib fractures of 9, 10 and 11 status post fall History of pericarditis Chronic back pain Polysubstance abuse, per record review; patient reports alcohol, marijuana use currently. History of nicotine dependence COPD, emphysema Legally blind Obesity, BMI 30.7 Osteoarthritis Venous insufficiency Anxiety, depression, history of, currently controlled Hyperglycemia, steroid-induced Moderate protein calorie malnutrition Hypernatremia, hyperchloremic secondary free water deficit, intravascular volume depletion Status post PEG tube placement Hypokalemia Plan: Continue on current medication regime ,monitoring and symptomatic treatment. Potential sedation holiday today as per cable hooker. Hypernatremic, IV fluids changed over to D5W. Continue on lactulose and Xifaxan; lactulose decreased secondary to significant diarrhea .continue close monitoring of bleeding from tracheostomy with close monitoring of coag's . Follow closely repeated cultures. Diuretics. Select specialty reevaluation in progress. Prognosis guarded given multiple complex medical issues. The impression and plan of care has been dictated as directed. : I performed a history and examination of this patient, discussed the same with the dictator. I agree with the dictator's note ,documented as a scribe. Any additional findings or plans will be noted.
[2020-03-08 18:37] LABS: Glucose,Whole Blood 161 mg/dL (75-99)
[2020-03-08] MEDS: ANIDULAFUNGIN 100 MG in SODIUM CHLORIDE 0.9% 100 ML IVPB SCH (18:40)
[2020-03-08] MEDS: NOREPINEPHRINE 8 MG in SODIUM CHLORIDE 0.9% 250 ML IV SCH (21:25)
[2020-03-08 23:26] LABS: Glucose,Whole Blood 163 mg/dL (75-99)
[2020-03-09] MEDS: IPRATROPIUM-ALBUTEROL 3 ML NEB INHALATION SCH ×6 (00:33→21:13)
[2020-03-09 04:52] LABS: Anisocytosis Moderate; Basophils % (A) 0 %; Eosinophils # (A) 0.2 k/uL (0-0.7); Eosinophils % (A) 2 %; HCT 22.5 % (39.0-53.0); HGB 7.4 gm/dL (13.0-17.5); Hypochromasia Moderate; INR 1.5 (<1.2); Lymphocytes # (A) 1.7 k/uL (1.0-4.8); Lymphocytes % (A) 12 %; MCH 34.3 pg (25.0-35.0); MCHC 33.1 g/dL (31.0-37.0); MCV 103.4 fL (80.0-100.0); Macrocytosis Marked; Monocytes # (A) 0.6 k/uL (0-1.0); Monocytes % (A) 4 %; Neutrophils # (A) 12.1 k/uL (1.3-7.7); Neutrophils % (A) 81 %; Poikilocytosis Moderate; Prothrombin Time 14.8 sec (9.0-12.0); RBC 2.17 m/uL (4.30-5.90)
[2020-03-09 04:59] LABS: ALT 70 U/L (4-49); AST 121 U/L (17-59); African American GFR (CKD) >90 (>60 ml/min/1.73 sqM); Albumin 1.8 g/dL (3.5-5.0); Alkaline Phosphatase 169 U/L (38-126); Anion Gap -1 mmol/L; Blood Urea Nitrogen 47 mg/dL (9-20); Calcium 7.7 mg/dL (8.4-10.2); Carbon Dioxide 26 mmol/L (22-30); Chloride 120 mmol/L (98-107); Glucose 141 mg/dL (74-99); Non-African American GFR(CKD) 89 (>60 ml/min/1.73 sqM); Sodium 145 mmol/L (137-145); Total Bilirubin 4.2 mg/dL (0.2-1.3); Total Protein 4.6 g/dL (6.3-8.2)
[2020-03-09 05:03] LABS: Platelet Count 62 k/uL (150-450)
[2020-03-09 05:09] LABS: Glucose,Whole Blood 165 mg/dL (75-99)
[2020-03-09 05:09] LABS: Potassium 2.7 mmol/L (3.5-5.1)
[2020-03-09] MEDS: INSULIN ASPART (NovoLOG) 100 UNIT/ML VIAL SQ SCH ×4 (05:19→23:25)
[2020-03-09] MEDS: POTASSIUM BICARBONATE/CIT AC 20 MEQ TABLET.EFF NG-TUBE SCH ×6 (05:20→17:54)
[2020-03-09] MEDS: PROPOFOL 1,000 MG in EMPTY BAG 1 BAG IV SCH (05:48)
[2020-03-09 06:09] LABS: ABG Base Excess 0.3 mmol/L; ABG HCO3 25 mmol/L (21-25); ABG Oxygen Saturation 97.4 % (94-97); ABG PCO2 39 mmHg (35-45); ABG PH 7.42 (7.35-7.45); ABG PO2 86 mmHg (83-108); ABG TCO2 26 mmol/L (19-24); Allen Test Performed? Yes
--- NOTE | 2020-03-09 06:37 | P.PN ---
Subjective Progress Note Date: 03/08/20 Principal diagnosis: Alcoholic hepatitis, alcoholic cirrhosis of the liver with ascites, hepatic encephalopathy, elevated liver enzymes Patient is seen in the intensive care unit where he is currently status post tracheostomy with subsequent replacement after bleed, and PEG tube placement. Mentation still poor and requiring mechanical ventilation. Objective - Vital Signs Vital signs: Vital Signs Temp 99.6 F 03/08/20 13:00 Pulse 121 H 03/08/20 14:00 Resp 11 L 03/08/20 14:00 BP 124/61 03/08/20 12:00 Pulse Ox 100 03/08/20 14:00 Intake & Output 03/07/20 03/08/20 03/08/20 18:59 06:59 18:59 Intake Total 7006.758 6526.892 920.795 Output Total 2065 2032 1123 Balance -204.859 -691.108 -202.205 Weight 91.2 kg 91.2 kg Intake: IV 312 312 559 0.9 NS 240 240 130 Dextrose 5% in Water 1, 375 000 ml @ 75 mls/hr IV . [id number] JARED Rx#:[id number] Normal Saline Pressure 72 72 54 Bag Intake, IV Titration 428.141 258.892 251.795 Amount Norepinephrine 8 mg In 128.141 68.194 61.665 Sodium Chloride 0.9% 250 ml @ 0.05 MCG/KG/MIN 8. 872 mls/hr IV .Q24H JARED Rx#:[id number] Propofol 1,000 mg In 300 190.698 190.130 Empty Bag 1 bag @ Titrate IV .Q0M JARED Rx#: [id number] Tube Feeding 570 770 110 Blood Product 250 Rc Cpd Unit 250 [id number] Other 300 Output: Urine 865 1332 1123 Stool 1200 700 0 Other: Voiding Method Indwelling Catheter Indwelling Catheter Indwelling Catheter ABP, PAP, CO, CI - Last Documented Arterial Blood Pressure 131/45 - Exam On physical examination, patient appears comfortable in no apparent distress. HEAD: Normocephalic, atraumatic. EYES: Scleral icterus. No conjunctival injection. MOUTH: No lesions, tongue midline, endotracheal tube in place. NECK: Tracheostomy in place. CHEST: Coarse respiratory noises in all lung soni on mechanical ventilation. ABDOMEN: Soft, PEG tube in place. Bowel sounds are positive. No organomegaly. No guarding or rigidity. EXTREMITIES: Bilateral pedal edema. SKIN: No rashes, jaundice. NEUROLOGIC: Intubated and sedated. - Labs CBC & Chem 7: 03/09/20 04:35 03/09/20 04:35 Labs: Abnormal Lab Results - Last 24 Hours (Table) 03/06/20 03/07/20 03/07/20 Range/Units 10:50 17:02 17:17 WBC 21.2 H (3.8-10.6) k/uL RBC 2.51 L (4.30-5.90) m/uL Hgb 8.0 L (13.0-17.5) gm/dL Hct 25.0 L (39.0-53.0) % MCV (80.0-100.0) fL RDW 23.0 H (11.5-15.5) % Plt Count 58 L (150-450) k/uL Neutrophils # 17.2 H (1.3-7.7) k/uL Macrocytosis ABG O2 Saturation (94-97) % Sodium (137-145) mmol/L Potassium (3.5-5.1) mmol/L Chloride (98-107) mmol/L BUN (9-20) mg/dL Glucose (74-99) mg/dL POC Glucose (mg/dL) 148 H (75-99) mg/dL Calcium (8.4-10.2) mg/dL Total Bilirubin (0.2-1.3) mg/dL AST (17-59) U/L ALT (4-49) U/L Alkaline Phosphatase (38-126) U/L Ammonia (<30) umol/L Total Protein (6.3-8.2) g/dL Albumin (3.5-5.0) g/dL Crossmatch See Detail 03/08/20 03/08/20 03/08/20 Range/Units 00:06 05:00 05:00 WBC 20.3 H (3.8-10.6) k/uL RBC 2.44 L (4.30-5.90) m/uL Hgb 7.9 L (13.0-17.5) gm/dL Hct 24.7 L (39.0-53.0) % MCV 100.9 H (80.0-100.0) fL RDW 23.4 H (11.5-15.5) % Plt Count 64 L (150-450) k/uL Neutrophils # 16.3 H (1.3-7.7) k/uL Macrocytosis Marked A ABG O2 Saturation (94-97) % Sodium 148 H (137-145) mmol/L Potassium 3.2 L (3.5-5.1) mmol/L Chloride 122 H (98-107) mmol/L BUN 56 H (9-20) mg/dL Glucose 147 H (74-99) mg/dL POC Glucose (mg/dL) 183 H (75-99) mg/dL Calcium 7.8 L (8.4-10.2) mg/dL Total Bilirubin 5.0 H (0.2-1.3) mg/dL AST 140 H (17-59) U/L ALT 77 H (4-49) U/L Alkaline Phosphatase 173 H (38-126) U/L Ammonia (<30) umol/L Total Protein 4.7 L (6.3-8.2) g/dL Albumin 1.9 L (3.5-5.0) g/dL Crossmatch 03/08/20 03/08/20 03/08/20 Range/Units 05:03 05:09 05:20 WBC (3.8-10.6) k/uL RBC (4.30-5.90) m/uL Hgb (13.0-17.5) gm/dL Hct (39.0-53.0) % MCV (80.0-100.0) fL RDW (11.5-15.5) % Plt Count (150-450) k/uL Neutrophils # (1.3-7.7) k/uL Macrocytosis ABG O2 Saturation 97.4 H (94-97) % Sodium (137-145) mmol/L Potassium (3.5-5.1) mmol/L Chloride (98-107) mmol/L BUN (9-20) mg/dL Glucose (74-99) mg/dL POC Glucose (mg/dL) 159 H (75-99) mg/dL Calcium (8.4-10.2) mg/dL Total Bilirubin (0.2-1.3) mg/dL AST (17-59) U/L ALT (4-49) U/L Alkaline Phosphatase (38-126) U/L Ammonia 59 H (<30) umol/L Total Protein (6.3-8.2) g/dL Albumin (3.5-5.0) g/dL Crossmatch 03/08/20 Range/Units 11:54 WBC (3.8-10.6) k/uL RBC (4.30-5.90) m/uL Hgb (13.0-17.5) gm/dL Hct (39.0-53.0) % MCV (80.0-100.0) fL RDW (11.5-15.5) % Plt Count (150-450) k/uL Neutrophils # (1.3-7.7) k/uL Macrocytosis ABG O2 Saturation (94-97) % Sodium (137-145) mmol/L Potassium (3.5-5.1) mmol/L Chloride (98-107) mmol/L BUN (9-20) mg/dL Glucose (74-99) mg/dL POC Glucose (mg/dL) 193 H (75-99) mg/dL Calcium (8.4-10.2) mg/dL Total Bilirubin (0.2-1.3) mg/dL AST (17-59) U/L ALT (4-49) U/L Alkaline Phosphatase (38-126) U/L Ammonia (<30) umol/L Total Protein (6.3-8.2) g/dL Albumin (3.5-5.0) g/dL Crossmatch Microbiology - Last 24 Hours (Table) 03/04/20 14:25 Blood Culture - Preliminary Blood No Growth after 72 hours 03/04/20 14:45 Blood Culture - Preliminary Blood No Growth after 72 hours 03/05/20 10:08 Catheter Tip Culture - Final Catheter Tip 03/05/20 10:08 Catheter Tip Culture - Final Catheter Tip Assessment and Plan (1) Acute alcoholic hepatitis Narrative/Plan: 54-year-old male with known history of alcohol abuse presenting to the hospital with altered mental status. Likely multifactorial given suspected underlying decompensated cirrhosis, acute alcoholic hepatitis and concern for aspiration pneumonia and sepsis. Currently receiving treatment in the ICU, he remains on broad-spectrum antibiotic therapy and mechanically ventilated. Patient is status post tracheostomy placement and PEG tube placement. Current Visit: Yes Status: Acute Code(s): K70.10 - ALCOHOLIC HEPATITIS WITHOUT ASCITES SNOMED Code(s): 8745311 (2) Liver cirrhosis Current Visit: Yes Status: Acute Code(s): K74.60 - UNSPECIFIED CIRRHOSIS OF LIVER SNOMED Code(s): 39244309 (3) Ascites Current Visit: Yes Status: Acute Code(s): R18.8 - OTHER ASCITES SNOMED Code(s): 084645860 (4) Hepatic encephalopathy Current Visit: Yes Status: Acute Code(s): K72.90 - HEPATIC FAILURE, UNSPECIFIED WITHOUT COMA SNOMED Code(s): 66126272 (5) Bicytopenia Narrative/Plan: Patient anemic and thrombocytopenic likely related to chronic alcohol use. Stool testing was positive for blood but patient has no signs or symptoms of GI bleeding with normal brown stool noted and fecal management system. Hemoglobin has remained stable, after initial fall secondary to bleeding around the tracheostomy site. Current Visit: Yes Status: Acute Code(s): D75.89 - OTHER SPECIFIED DISEASES OF BLOOD AND BLOOD-FORMING ORGANS SNOMED Code(s): 85401319 Plan: Supportive care Okay for tube feed through PEG tube Continue management per hospice superintendent service, patient currently intubated and sedated Continue broad-spectrum antibiotic therapy and antifungal therapy Continue lactulose and Xifaxan therapy Currently receiving Lasix twice a day for diuresis Status post tracheostomy Alcohol abstinence Thank you for allowing us to participate in the care of the patient we will continue to follow
[2020-03-09 06:38] LABS: Large Platelets Present; Polychromasia Present
[2020-03-09] MEDS: PANTOPRAZOLE 40 MG/10 ML VIAL IVP SCH ×2 (08:06→20:36)
[2020-03-09] MEDS: CHLORHEXIDINE GLUCONATE 15 ML CUP MUCOUS MEM SCH ×2 (08:06→20:36)
[2020-03-09] MEDS: FUROSEMIDE 10 MG/ML 4 ML VIAL IV SCH ×2 (08:07→20:36)
[2020-03-09] MEDS: LACTULOSE 20 GM/30 ML CUP PO SCH (08:07)
--- NOTE | 2020-03-09 08:49 | XR ---
EXAMINATION TYPE: XR chest 1V portable DATE OF EXAM: 03/09/2020 COMPARISON: 03/08/2020 INDICATION: Tracheostomy TECHNIQUE: Single frontal view of the chest is obtained. Position is semiupright FINDINGS: The heart size is normal. The pulmonary vasculature is slightly prominent. Left lower lobe infiltrate may be present. There is silhouetting the left diaphragm. Small effusion m ay be present. Tracheostomy tube is identified. Left central venous catheter tip is within the proximal right atrium IMPRESSION: 1. Left lower lobe infiltrate and/or small left pleural effusion. 2. Lines and catheters discussed above
[2020-03-09 11:53] LABS: Glucose,Whole Blood 168 mg/dL (75-99)
[2020-03-09] MEDS: DEXTROSE 5% IN WATER 1,000 ML IV SCH (12:19)
--- NOTE | 2020-03-09 14:26 | P.PN ---
Subjective Progress Note Date: 03/09/20 On today's evaluation of 03/08/2020, the patient is being seen in follow-up. This is my first encounter with the patient. I was able to review the records and events that occurred as the patient is currently on a mechanical ventilator and the patient has a cystic estimate of in place and a PEG tube in place. The patient has a history of liver cirrhosis. The patient has been in respiratory failure requiring tracheostomy tube insertion and ultimately there was some issues with a tracheostomy tube where there was significant amount of bleeding from the tracheostomy stoma on 03/06/2020. The patient was taken to the operating room and control of bleeding was done and the patient currently has a shock tracheostomy tube in place #8. Activity was also in place. The patient is sedated with propofol of alcohol the rate of 50 g per KG pigmented. The patient is on normal saline at the rate of 10 mL an hour. The patient is on levo fed at the rate of 03 g per KG pigmented. The patient is also receiving high protein vital for enteral nutrition at the rate of 55 mL an hour. The patient is able to tolerate the tube feeds well. Nevertheless, he is having significant amount of liquidy diarrhea which is large volume and this has resulted in development of intravascular volume depletion and electrodes imbalance. Sodium level is up to 148. He is on assist control mode of ventilation at the rate of 12 with tidal volume of 450 and FiO2 of 50% with D5. The blood gases from today showed a pH of 7.4 with a pCO2 of 35 and a pO2 of 87. Patient had a follow-up chest x-ray today that showed indwelling catheters are in place and they're unchanged compared to yesterday. Pleural effusion is u nchanged. There is stable appearance of the cardia mediastinal structures at this point in time. The findings on chest x-rays essentially stable. He is afebrile. The antibiotic coverage includes Eraxis and infectious diseases on the case. Most recent blood cultures and catheter tip cultures of been negative. The sputum culture was positive for Melisa albicans. There was also Melisa glabrata. Urine culture was also positive for Melisa albicans. He does have significant amount of third spacing and anasarca as the patient has scrotal swelling, 5 swelling, lower extremity swelling, upper extremity swelling. He is currently on IV Lasix. He has been in a positive fluid balance. His weight is currently up to 91 kg and the patient's BMI 31.5. He is receiving Lasix 40 mg IV every 12 hours. The patient is also on Xifaxan regarding Her neck encephalopathy in addition to lactulose. The most recent ammonia level was at 59. On 03/09/2020, the patient remains sedated with propofol. I gave him a sedation holiday yesterday. He was taken off the sedation. It took him approximately 10 hours to show some recovery of sedation. Nevertheless, the patient became quite restless and agitated and he had to be placed back on the respirator to maintain synchrony with the mechanical ventilator. On today's evaluation the patient remained on assist control mode of ventilation. He is having double stacking on his breath. On today's evaluation is an assist-control at the rate of 12 with a tidal volume of 450 and FiO2 of 40% with a PEEP of 5. His blood gas show a pH of 7.42 with a pCO2 of 39 and pO2 of 86. The chest x-ray is showing no interval change and there are some stable infiltration and small effusion the lung bases bilaterally. The patient is on enteral feeding for nutritional support and he is having vital high protein and he is also on water flushes through the NG at 100 mL every 4 hours. The patient is also receiving D5 water at the rate of 75 mL's an hour. He is currently on propofol at 25 g per KG per minute and levo fed is also running at 0.05 g per KG per minute. The patient is in a positive fluid balance of 367 mL.. He is on D5 water at 75 mL an hour. Sodium level is improved and is down to 145. Provide level is also improving. Lactulose dose has been drop down to 20 mg on a daily basis and the patient is having still liquidy stool. The patient had an ammonia level of 58 is comparable to yesterday. Norepinephrine infusion is running a 0.05 g per KG per minute. Objective - Vital Signs Vital signs: Vital Signs Temp 98.6 F 03/09/20 12:00 Pulse 105 H 03/09/20 14:00 Resp 27 H 03/09/20 14:00 BP 124/61 03/08/20 12:00 Pulse Ox 99 03/09/20 14:00 Intake & Output 03/08/20 03/09/20 03/09/20 18:59 06:59 18:59 Intake Total 8463.912 2147.291 1267.498 Output Total 1338 1420 1305 Balance -53.205 317.291 -37.502 Weight 91.2 kg 91.7 kg Intake: IV 923 1001 728 0.9 NS 170 110 80 Dextrose 5% in Water 1, 675 825 600 000 ml @ 75 mls/hr IV . [id number] JARED Rx#:[id number] Normal Saline Pressure 78 66 48 Bag Intake, IV Titration 251.795 117.291 77.498 Amount Norepinephrine 8 mg In 61.665 18.957 33.950 Sodium Chloride 0.9% 250 ml @ 0.05 MCG/KG/MIN 8. 872 mls/hr IV .Q24H JARED Rx#:[id number] Propofol 1,000 mg In 190.130 98.334 43.548 Empty Bag 1 bag @ Titrate IV .Q0M JARED Rx#: [id number] Tube Feeding 110 319 232 Other 300 230 Output: Urine 1338 1420 1305 Stool 0 Other: Voiding Method Indwelling Catheter Indwelling Catheter Indwelling Catheter ABP, PAP, CO, CI - Last Documented Arterial Blood Pressure 129/41 - Exam GENERAL EXAM: On mechanical ventilator, minimally responsive 54-year-old gentleman, comfortable in no apparent distress. This morning, the patient is sedated with propofol. Tracheostomy tube is in place and there is no signs of an acute bleed. They tracheostomy tube is well sutured to the neck area. HEAD: Normocephalic. EYES: Normal reaction of pupils, equal size. NOSE: Clear with pink turbinates. THROAT: Tracheostomy tube secured in place. The patient has a Shiley #[address] NECK: No masses, no JVD. CHEST: No chest wall deformity. LUNGS: Equal air entry with crackles at the bilateral posterior bases. CVS: S1 and S2 normal with no audible murmur, regular rhythm. ABDOMEN: PEG tube exit site clean and dry, normal bowel sounds, no guarding or rigidity. SPINE: No scoliosis or deformity SKIN: No rashes CENTRAL NERVOUS SYSTEM: Sedated, tone is normal in all 4 extremities. The patient is in the process of obtaining a sedation holiday. EXTREMITIES: The patient has significant peripheral edema both in upper and lower extremities and the patient has diffuse anasarca in addition to scrotal edema. No cyanosis. No clubbing. - Labs CBC & Chem 7: 03/09/20 04:35 03/09/20 13:35 Labs: Abnormal Lab Results - Last 24 Hours (Table) 03/08/20 03/08/20 03/08/20 Range/Units 18:35 19:15 23:23 WBC (3.8-10.6) k/uL RBC (4.30-5.90) m/uL Hgb (13.0-17.5) gm/dL Hct (39.0-53.0) % MCV (80.0-100.0) fL RDW (11.5-15.5) % Plt Count (150-450) k/uL Neutrophils # (1.3-7.7) k/uL Macrocytosis PT (9.0-12.0) sec INR (<1.2) ABG Total CO2 (19-24) mmol/L ABG O2 Saturation (94-97) % Potassium 3.1 L (3.5-5.1) mmol/L Chloride (98-107) mmol/L BUN (9-20) mg/dL Glucose (74-99) mg/dL POC Glucose (mg/dL) 161 H 163 H (75-99) mg/dL Calcium (8.4-10.2) mg/dL Total Bilirubin (0.2-1.3) mg/dL AST (17-59) U/L ALT (4-49) U/L Alkaline Phosphatase (38-126) U/L Ammonia (<30) umol/L Total Protein (6.3-8.2) g/dL Albumin (3.5-5.0) g/dL 03/09/20 03/09/20 03/09/20 Range/Units 04:35 04:35 04:35 WBC 15.0 H (3.8-10.6) k/uL RBC 2.17 L (4.30-5.90) m/uL Hgb 7.4 L (13.0-17.5) gm/dL Hct 22.5 L (39.0-53.0) % MCV 103.4 H (80.0-100.0) fL RDW 23.0 H (11.5-15.5) % Plt Count 62 L (150-450) k/uL Neutrophils # 12.1 H (1.3-7.7) k/uL Macrocytosis Marked A PT 14.8 H (9.0-12.0) sec INR 1.5 H (<1.2) ABG Total CO2 (19-24) mmol/L ABG O2 Saturation (94-97) % Potassium 2.7 L* (3.5-5.1) mmol/L Chloride 120 H (98-107) mmol/L BUN 47 H (9-20) mg/dL Glucose 141 H (74-99) mg/dL POC Glucose (mg/dL) (75-99) mg/dL Calcium 7.7 L (8.4-10.2) mg/dL Total Bilirubin 4.2 H (0.2-1.3) mg/dL AST 121 H (17-59) U/L ALT 70 H (4-49) U/L Alkaline Phosphatase 169 H (38-126) U/L Ammonia (<30) umol/L Total Protein 4.6 L (6.3-8.2) g/dL Albumin 1.8 L (3.5-5.0) g/dL 03/09/20 03/09/20 03/09/20 Range/Units 04:45 05:08 06:01 WBC (3.8-10.6) k/uL RBC (4.30-5.90) m/uL Hgb (13.0-17.5) gm/dL Hct (39.0-53.0) % MCV (80.0-100.0) fL RDW (11.5-15.5) % Plt Count (150-450) k/uL Neutrophils # (1.3-7.7) k/uL Macrocytosis PT (9.0-12.0) sec INR (<1.2) ABG Total CO2 26 H (19-24) mmol/L ABG O2 Saturation 97.4 H (94-97) % Potassium (3.5-5.1) mmol/L Chloride (98-107) mmol/L BUN (9-20) mg/dL Glucose (74-99) mg/dL POC Glucose (mg/dL) 165 H (75-99) mg/dL Calcium (8.4-10.2) mg/dL Total Bilirubin (0.2-1.3) mg/dL AST (17-59) U/L ALT (4-49) U/L Alkaline Phosphatase (38-126) U/L Ammonia 58 H (<30) umol/L Total Protein (6.3-8.2) g/dL Albumin (3.5-5.0) g/dL 03/09/20 03/09/20 Range/Units 11:52 13:35 WBC (3.8-10.6) k/uL RBC (4.30-5.90) m/uL Hgb (13.0-17.5) gm/dL Hct (39.0-53.0) % MCV (80.0-100.0) fL RDW (11.5-15.5) % Plt Count (150-450) k/uL Neutrophils # (1.3-7.7) k/uL Macrocytosis PT (9.0-12.0) sec INR (<1.2) ABG Total CO2 (19-24) mmol/L ABG O2 Saturation (94-97) % Potassium 2.8 L (3.5-5.1) mmol/L Chloride (98-107) mmol/L BUN (9-20) mg/dL Glucose (74-99) mg/dL POC Glucose (mg/dL) 168 H (75-99) mg/dL Calcium (8.4-10.2) mg/dL Total Bilirubin (0.2-1.3) mg/dL AST (17-59) U/L ALT (4-49) U/L Alkaline Phosphatase (38-126) U/L Ammonia (<30) umol/L Total Protein (6.3-8.2) g/dL Albumin (3.5-5.0) g/dL Microbiology - Last 24 Hours (Table) 03/04/20 14:25 Blood Culture - Preliminary Blood No Growth after 96 hours 03/04/20 14:45 Blood Culture - Preliminary Blood No Growth after 96 hours Assessment and Plan Plan: 1 Acute hypoxic respiratory failure, suspect aspiration pneumonia, inability to wean, status post tracheostomy tube placement post PEG tube placement. On 03/06/2020 the patient developed significant bleeding and from the tracheostomy tube site. He was taken to the operating room and had a tracheostomy tube change out along with control of the bleeding vessels. The patient is adequately ventilated for now. Chest x-ray was noted. Blood gases was noted. No signs of any acute bleeds from the tracheostomy stoma. Meanwhile, it was noted that the patient was having double stacking on his breasts and for that reason he was switched to an SIMV mode with a pressure support. This improved his breath stacking. 2 Acute anemia secondary to above currently receiving his second unit of packed red blood cells and he did receive 4 units of fresh frozen plasma and 5 units of platelets . The patient's hemoglobin stable at 7.4 3 hypotension/shock. This is likely secondary to intravascular volume depletion time of bleeds. Septic shock cannot be completely ruled out is another contributing factor. Hemodynamically more stable and the patient is only on 0.05 g per KG per minute of norepinephrine infusion as will be gradually weaned off. 4 Alcohol liver disease with ascites. Jaundice, and elevated liver enzymes and stigmata of chronic liver failure with anasarca. The MRI level is elevated at 58 Patient is currently on a combination of Xifaxan and lactulose. The lactulose dose of the modified and the patient is having some liquidy loose bowel movements. 5 hypernatremia secondary to aggressive use of lactulose and intravascular volume depletion with third spacing, the patient is on water flushes and D5 water with IV and the sodium level is improved significantly. 6 chronic hepatic encephalopathy with elevated ammonia level which is improving his level is down to 58, failed a sedation holiday yesterday. 7 Recent history of fall about 2 months ago, and multiple right-sided rib fractures. 8History of alcoholic neuropathy. 9 History of pericarditis 10 Chronic back pain 11 History of restless leg syndrome. 12 Acute kidney injury secondary to sepsis and intravascular volume depletion, creatinine is improving is down to 0.96 13 hyperchloremic hypernatremia secondary to above, improving Plan Sedation holiday will be given again today Assessment mentation periodically Continue vent support and switch this patient an SIMV mode at the rate of 6 and the patient was given pressure support at 10 with an FiO2 of 40%. Continue D5 water at the rate of 75 mL an hour and discontinue the free water flushes with NG Monitor sodium level Continue XifaxanAnd lactulose for hepatic encephalopathy. Continue current antibiotic coverage Enteral feeding with vital high protein at the rate of 55 mL an hour Watch for any signs of bleeding from the tracheostomy stoma We'll continue to follow Critically care evaluation was done and more than 30 minutes. Time with Patient: Greater than 30
--- NOTE | 2020-03-09 14:26 | P.PN ---
Subjective Progress Note Date: 03/09/20 This is a 54-year-old gentleman, history of polysubstance abuse including alcohol abuse , falls with recent rib fractures, legally blind, osteoarthritis and multiple other medical issues presented to the ER with changes in mental status 2 days. Drug screen positive for tricyclics and benzos, serum alcohol less than 10. UA reported dark brown cloudy urine with occasional bacteria, hyaline casts, 2 WBCs, trace leukocytes, 4+ bilirubin, negative for nitrates. Ammonia level 91, T bili 14.9, currently 15.8 , elevated LFTs .Gallbladder ultrasound reporting abdominal ascites, abdominal x-ray nonacute, right foot x- ray reported no fracture, soft tissue swelling, EKG reported sinus tachycardia, troponin normal, BNP 910, echo reported normal LV function, EF 60-65% ,lactic acid 2.1 now down to 1.7, BUN 25, creatinine 0.8 chest x-ray reporting moderate pulmonary interstitial and airspace edema significantly worse than yesterday, pulmonary edema. ABGs noted. INR on admission 3.7, down to 2.2 Sepsis protocol, Received IV fluid resuscitation, IV antibiotics, cultures drawn. Developed respiratory failure, requiring intubation during the night. Currently on Sandostatin drip. 3 maroon stools during the night. Received 4 units of FFP and 2 units of packed RBCs to date. Hemoglobin currently 8.5. And had required pressor support with Levophed off since . Maintained on IV fluid resuscitation. Telemetry sinus rhythm. Potassium 3.2, magnesium 1.7. 02/24/2020 chest x-ray reporting persistent bilateral scattered airspace infiltrates, pleural effusion unchanged. Ventilator dependent, on FiO2 of 50 with PEEP increased to 12. Continues on lactulose with ammonia down to 80. T bili decreased to 11.3, LFTs improving. No further maroon stools. Small black stool this morning. Hemoglobin 8.6. Telemetry sinus rhythm to sinus tach. Sandostatin drip discontinued this morning. Last night patient asynchronous with vent, stacking breaths, Nimbex drip initiated. This morning Nimbex discontinued, changed to fentanyl drip. Requiring pressor support, Levophed resumed. Received vitamin K yesterday, INR 2.1. Marginal urine output, IV fluids decreased, and Lasix IV push added to med regime. Tube feedings ordered. Afebrile, WBC 14.7. Sputum culture pending, preliminary blood cultures negative at 48 hours. ABGs noted. 02/25/2020 yesterday Lasix and Aldactone initiated, creatinine mildly worsened up to 1.32. Ammonia increased up to 89, lactulose increased. No further maroon stools, hemoglobin increased to 9.4, platelets increased to 75. T bili trending down, 8.9, LFTs improving. Potassium 3.4. Chest x-ray reporting improving left lower lobe aeration. Right foot evaluated by orthopedic surgery, possible fluid collection, seroma with potential x-ray tomorrow. Tolerating tube feeds with minimal to no residuals, currently at 30 mls per hour with goal of 45. IV steroids added to med regimen with blood sugars increasing. Remains vent dependent with FiO2 at 50/+12 of PEEP. Continues on Levophed, fentanyl, diprovan drips. Afebrile, T-max 99.5, WBC 14.1. 02/26/2020 ABGs unchanged,remains vent dependent, FiO2 50/+12 PEEP. Chest x-ray reporting improvement. Maintained on both Xifaxan & Lactulose, ammonia increasing, beginning to stool. Creatinine trending up 1.4. Hemoglobin decreased to 8.5. INR 1.7 Levophed weaned off this morning. Attempted a sedation holiday for about an hour this morning; patient did not wake up, became agitated, tachycardic, tachypneic with respiratory rate up into the 40s, diprovan/fentanyl drips resumed. Tolerating tube feeds at 40 with goal of 45/minimal to no residual. Orthopedics discussing x-ray and foot possibly tomorrow. Afebrile WBC down to 11. 03/03/2020 patient was trached yesterday, remains vent dependent with FiO2 45%/+5 of PEEP. Chest x-ray suggestive of possible left lower lobe pneumonia, v ersus atelectasis, possible interstitial disease. Scheduled for PEG tube placement today. To date, patient has not tolerated sedation holidays, not following commands, becomes agitated, and becomes asynchronous with the patient. Neurology consulted, EEG completed, results pending. Maintain on D5W with improvement in sodium, Na 146. Currently sedated on Diprovan gtt. telemetry sinus rhythm. Ammonia level LII on lactulose and Xifaxan. 03/04/2020 EGD with PEG tube placement completed at bedside this morning, tolerated procedure well. Like gastroesophageal reflux reported along the anterior abdominal wall. Evaluated by neurology with recommendations noted and appreciated. EEG completed yesterday reporting abnormal, background slowing ,suggestive of generalized cerebral dysfunction seen with toxic metabolic encephalopathy related to diffuse structural brain abnormality, no obvious epileptiform activity seen. Afebrile, WBC continues trending up, currently 24.8, recultured. During sedation holiday patient noted to spontaneously move his right hand, half open his eyes responding to his name. Diprovan has been weaned off this morning. Remains vent dependent with FiO2 40%/+5 of PEEP. Chest x-ray reporting significant interval increase in left basilar airspace disease, possible infectious or aspiration pneumonitis. Ammonia level 42. Receiving potassium supplements for potassium 2.8. Sodium continues improving, 138. 03/05/2020 Remains off sedation X 24 hrs, sensorium slowly improving. Following simple commands ;Opens eyes to name, shakes head yes and no to simple questions. Sinus tachycardia with heart rate in the 110s. Chest x-ray reporting persistent left lower lobe infiltrate, IV push Lasix every 12h initiated. Vent dependent, maintained on FiO2 40%/+5 of PEEP. Significant anasarca. Yesterday PEG tube placed, did not receive any lactulose-current ammonia level 45. Bleeding around tracheostomy site, controlled with multiple packs of gauze, DDAVP. Hemoglobin 8.6, platelets 37 New central line and art line placed. Levophed currently off. T-max 99.7, WBC unchanged 24.6, recultured yesterday, cultures pending.Na 140. 03/08/2020 remains vent dependent with FiO2 50%/+5 of PEEP.. Staff reports patient following simple commands throughout the weekend when off sedation. Currently maintained on Levophed, diprovan, IV fluids of D5W and Eraxis. Re cultured last week, T-max 99.9, WBC trending down ,20.3. Tachycardic in the one-teens to 120s. Hemoglobin 7.9 , platelets 64 .Sodium 148. Potassium 3.2, receiving potassium supplements. Diuresing well on Lasix IV push with 24-hour I&O reflecting a negative fluid balance. Significant stool output/FMS, ammonia level LIX, lactulose decreased. Chest x-ray reporting stable. Creatinine 1.17. 03/09/2020 remains vent dependent, FiO2 down to 40%/+5 of PEEP currently on CPAP/SIMV setting. Levophed weaned off. Diprovan recently weaned off this morning. Maintained on D5W with sodium down to 145. Lactulose decreased yesterday with ammonia level LVIII. Chest x-ray reporting possible left lower lobe infiltrate/small pleural effusion. Afebrile, WBC down to 14. Mild tachycardia, hemoglobin decreased to 7.4. Potassium 2.8. BUN 47 creatinine 0.96. Diuresing on Lasix 40 IV push. Objective - Vital Signs Vital signs: Vital Signs Temp 98.6 F 03/09/20 12:00 Pulse 105 H 03/09/20 14:00 Resp 27 H 03/09/20 14:00 BP 124/61 03/08/20 12:00 Pulse Ox 99 03/09/20 14:00 Intake & Output 03/08/20 03/09/20 03/09/20 18:59 06:59 18:59 Intake Total 7676.867 3296.291 1267.498 Output Total 1338 1420 1305 Balance -53.205 317.291 -37.502 Weight 91.2 kg 91.7 kg Intake: IV 923 1001 728 0.9 NS 170 110 80 Dextrose 5% in Water 1, 675 825 600 000 ml @ 75 mls/hr IV . [id number] JARED Rx#:[id number] Normal Saline Pressure 78 66 48 Bag Intake, IV Titration 251.795 117.291 77.498 Amount Norepinephrine 8 mg In 61.665 18.957 33.950 Sodium Chloride 0.9% 250 ml @ 0.05 MCG/KG/MIN 8. 872 mls/hr IV .Q24H JARED Rx#:[id number] Propofol 1,000 mg In 190.130 98.334 43.548 Empty Bag 1 bag @ Titrate IV .Q0M JARED Rx#: [id number] Tube Feeding 110 319 232 Other 300 230 Output: Urine 1338 1420 1305 Stool 0 Other: Voiding Method Indwelling Catheter Indwelling Catheter Indwelling Catheter ABP, PAP, CO, CI - Last Documented Arterial Blood Pressure 129/41 - Exam VITAL SIGNS: As above GENERAL: Sitting up in bed, intubated, sedated, positive anasarca HEENT: Conjunctivae normal. Positive icterus, jaundice NECK: No JVD. No thyroid enlargement. No LNs. Midline tracheostomy CARDIOVASCULAR: S1, S2 regular. Improving Tachycardia, Systolic murmur, RESPIRATION: Clear, with no rhonchi, fine bibasilar crackles, no wheezing. ABDOMEN: Soft, distended, positive bowel sounds. PEG tube present. Scrotal edema Extremities: Positive upper and lower extremity edema, no clubbing, no cyanosis. Right foot dorsal edema with ecchymosis wearing boot. NERVOUS SYSTEM: Unable to assess, on mechanical ventilation, sedated Skin: Warm and dry, no rash Microbiology 03/04/20 14:25 Blood Blood Culture - Preliminary No Growth after 96 hours 03/04/20 14:45 Blood Blood Culture - Preliminary No Growth after 96 hours 03/05/20 10:08 Catheter Tip Catheter Tip Culture - Final 03/05/20 10:08 Catheter Tip Catheter Tip Culture - Final 03/04/20 11:00 Sputum Gram Stain - Final 03/04/20 11:00 Sputum Sputum Culture - Final Melisa albicans Melisa glabrata 03/04/20 10:10 Urine,Catheterized Urine Culture - Final Melisa albicans 02/22/20 14:13 Blood Blood Culture - Final No Growth after 144 hours 02/23/20 03:46 Sputum Gram Stain - Final 02/23/20 03:46 Sputum Sputum Culture - Final - Labs CBC & Chem 7: 03/09/20 04:35 03/09/20 13:35 Labs: Abnormal Lab Results - Last 24 Hours (Table) 03/08/20 03/08/20 03/08/20 Range/Units 18:35 19:15 23:23 WBC (3.8-10.6) k/uL RBC (4.30-5.90) m/uL Hgb (13.0-17.5) gm/dL Hct (39.0-53.0) % MCV (80.0-100.0) fL RDW (11.5-15.5) % Plt Count (150-450) k/uL Neutrophils # (1.3-7.7) k/uL Macrocytosis PT (9.0-12.0) sec INR (<1.2) ABG Total CO2 (19-24) mmol/L ABG O2 Saturation (94-97) % Potassium 3.1 L (3.5-5.1) mmol/L Chloride (98-107) mmol/L BUN (9-20) mg/dL Glucose (74-99) mg/dL POC Glucose (mg/dL) 161 H 163 H (75-99) mg/dL Calcium (8.4-10.2) mg/dL Total Bilirubin (0.2-1.3) mg/dL AST (17-59) U/L ALT (4-49) U/L Alkaline Phosphatase (38-126) U/L Ammonia (<30) umol/L Total Protein (6.3-8.2) g/dL Albumin (3.5-5.0) g/dL 03/09/20 03/09/20 03/09/20 Range/Units 04:35 04:35 04:35 WBC 15.0 H (3.8-10.6) k/uL RBC 2.17 L (4.30-5.90) m/uL Hgb 7.4 L (13.0-17.5) gm/dL Hct 22.5 L (39.0-53.0) % MCV 103.4 H (80.0-100.0) fL RDW 23.0 H (11.5-15.5) % Plt Count 62 L (150-450) k/uL Neutrophils # 12.1 H (1.3-7.7) k/uL Macrocytosis Marked A PT 14.8 H (9.0-12.0) sec INR 1.5 H (<1.2) ABG Total CO2 (19-24) mmol/L ABG O2 Saturation (94-97) % Potassium 2.7 L* (3.5-5.1) mmol/L Chloride 120 H (98-107) mmol/L BUN 47 H (9-20) mg/dL Glucose 141 H (74-99) mg/dL POC Glucose (mg/dL) (75-99) mg/dL Calcium 7.7 L (8.4-10.2) mg/dL Total Bilirubin 4.2 H (0.2-1.3) mg/dL AST 121 H (17-59) U/L ALT 70 H (4-49) U/L Alkaline Phosphatase 169 H (38-126) U/L Ammonia (<30) umol/L Total Protein 4.6 L (6.3-8.2) g/dL Albumin 1.8 L (3.5-5.0) g/dL 03/09/20 03/09/20 03/09/20 Range/Units 04:45 05:08 06:01 WBC (3.8-10.6) k/uL RBC (4.30-5.90) m/uL Hgb (13.0-17.5) gm/dL Hct (39.0-53.0) % MCV (80.0-100.0) fL RDW (11.5-15.5) % Plt Count (150-450) k/uL Neutrophils # (1.3-7.7) k/uL Macrocytosis PT (9.0-12.0) sec INR (<1.2) ABG Total CO2 26 H (19-24) mmol/L ABG O2 Saturation 97.4 H (94-97) % Potassium (3.5-5.1) mmol/L Chloride (98-107) mmol/L BUN (9-20) mg/dL Glucose (74-99) mg/dL POC Glucose (mg/dL) 165 H (75-99) mg/dL Calcium (8.4-10.2) mg/dL Total Bilirubin (0.2-1.3) mg/dL AST (17-59) U/L ALT (4-49) U/L Alkaline Phosphatase (38-126) U/L Ammonia 58 H (<30) umol/L Total Protein (6.3-8.2) g/dL Albumin (3.5-5.0) g/dL 03/09/20 03/09/20 Range/Units 11:52 13:35 WBC (3.8-10.6) k/uL RBC (4.30-5.90) m/uL Hgb (13.0-17.5) gm/dL Hct (39.0-53.0) % MCV (80.0-100.0) fL RDW (11.5-15.5) % Plt Count (150-450) k/uL Neutrophils # (1.3-7.7) k/uL Macrocytosis PT (9.0-12.0) sec INR (<1.2) ABG Total CO2 (19-24) mmol/L ABG O2 Saturation (94-97) % Potassium 2.8 L (3.5-5.1) mmol/L Chloride (98-107) mmol/L BUN (9-20) mg/dL Glucose (74-99) mg/dL POC Glucose (mg/dL) 168 H (75-99) mg/dL Calcium (8.4-10.2) mg/dL Total Bilirubin (0.2-1.3) mg/dL AST (17-59) U/L ALT (4-49) U/L Alkaline Phosphatase (38-126) U/L Ammonia (<30) umol/L Total Protein (6.3-8.2) g/dL Albumin (3.5-5.0) g/dL Microbiology - Last 24 Hours (Table) 03/04/20 14:25 Blood Culture - Preliminary Blood No Growth after 96 hours 03/04/20 14:45 Blood Culture - Preliminary Blood No Growth after 96 hours Assessment and Plan Assessment: Sepsis secondary to aspiration bilateral pneumonia, possibly abdominal source, Acute hypoxic respiratory failure, related to the above, ventilator dependent, failure to wean, status post tracheostomy. tracheostomy site postop bleeding,unexpected,status post DDAVP , witih tracheostomy removal and replacement, requiring sutures and electrocautery. Septic and hypovolemic shock multifactorial, secondary to bilateral aspiration pneumonia, alcoholic liver disease Septic shock status post pressor support Hypotension, secondary to the above, pressor support dependent secondary to sepsis Acute renal failure multifactorial, secondary to all the above, diuretics Acute GI bleed, possible esophageal varices in a patient with significant alcohol dependence, status post Sandostatin Acute blood loss anemia, status post multiple transfusions of both FFP, packed RBCs Acute Hepatic encephalopathy Acute toxic, metabolic encephalopathy Alcoholic liver disease with ascites Hyperammonia Recent posterior lateral rib fractures of 9, 10 and 11 status post fall History of pericarditis Chronic back pain Polysubstance abuse, per record review; patient reports alcohol, marijuana use currently. History of nicotine dependence COPD, emphysema Legally blind Obesity, BMI 30.7 Osteoarthritis Venous insufficiency Anxiety, depression, history of, currently controlled Hyperglycemia, steroid-induced Moderate protein calorie malnutrition Hypernatremia, hyperchloremic secondary free water deficit, intravascular volume depletion Status post PEG tube placement Hypokalemia Plan: Continue on current medication regime ,monitoring and symptomatic treatment. Potential sedation holiday today as per evaluator. Maintain on lactulose and Xifaxan. Hemoglobin down to 7.4 possibly transfuse 1 unit if okay with evaluator. Potassium supplementation as per ICU replacement protocol. Diuretics. Select specialty reevaluation in progress. Prognosis guarded given multiple complex medical issues. The impression and plan of care has been dictated as directed. : I performed a history and examination of this patient, discussed the same with the dictator. I agree with the dictator's note ,documented as a scribe. Any additional findings or plans will be noted.
[2020-03-09] MEDS: ANIDULAFUNGIN 100 MG in SODIUM CHLORIDE 0.9% 100 ML IVPB SCH (17:56)
[2020-03-09 18:01] LABS: Glucose,Whole Blood 157 mg/dL (75-99)
[2020-03-09 23:24] LABS: Glucose,Whole Blood 150 mg/dL (75-99)
[2020-03-10] MEDS: NOREPINEPHRINE 8 MG in SODIUM CHLORIDE 0.9% 250 ML IV SCH (01:04)
[2020-03-10] MEDS: DEXTROSE 5% IN WATER 1,000 ML IV SCH ×2 (01:11→15:02)
[2020-03-10] MEDS: IPRATROPIUM-ALBUTEROL 3 ML NEB INHALATION SCH ×5 (01:51→16:18)
[2020-03-10 05:27] LABS: Anisocytosis Moderate; Basophils % (A) 0 %; Eosinophils # (A) 0.2 k/uL (0-0.7); Eosinophils % (A) 2 %; HGB 7.4 gm/dL (13.0-17.5); Hypochromasia Moderate; Lymphocytes # (A) 1.5 k/uL (1.0-4.8); Lymphocytes % (A) 12 %; MCH 33.4 pg (25.0-35.0); MCHC 32.2 g/dL (31.0-37.0); MCV 103.7 fL (80.0-100.0); Macrocytosis Marked; Mean Platelet Volume 11.1; Monocytes # (A) 0.5 k/uL (0-1.0); Monocytes % (A) 4 %; Neutrophils # (A) 10.2 k/uL (1.3-7.7); Neutrophils % (A) 81 %; Poikilocytosis Moderate; RBC 2.22 m/uL (4.30-5.90); RDW 22.6 % (11.5-15.5); WBC 12.6 k/uL (3.8-10.6)
[2020-03-10 05:28] LABS: INR 1.5 (<1.2); Platelet Count 69 k/uL (150-450); Prothrombin Time 15.1 sec (9.0-12.0)
[2020-03-10 05:31] LABS: ALT 76 U/L (4-49); AST 135 U/L (17-59); African American GFR (CKD) >90 (>60 ml/min/1.73 sqM); Albumin 1.8 g/dL (3.5-5.0); Alkaline Phosphatase 162 U/L (38-126); Anion Gap 2 mmol/L; Blood Urea Nitrogen 39 mg/dL (9-20); Calcium 7.7 mg/dL (8.4-10.2); Carbon Dioxide 27 mmol/L (22-30); Chloride 117 mmol/L (98-107); Glucose 147 mg/dL (74-99); Non-African American GFR(CKD) >90 (>60 ml/min/1.73 sqM); Sodium 146 mmol/L (137-145); Total Bilirubin 4.7 mg/dL (0.2-1.3); Total Protein 4.9 g/dL (6.3-8.2)
[2020-03-10 05:32] LABS: Glucose,Whole Blood 165 mg/dL (75-99)
[2020-03-10 05:32] LABS: ABG HCO3 27 mmol/L (21-25); ABG Oxygen Saturation 95.7 % (94-97); ABG PCO2 33 mmHg (35-45); ABG PH 7.52 (7.35-7.45); ABG PO2 69 mmHg (83-108); ABG TCO2 28 mmol/L (19-24); Allen Test Performed? Yes
[2020-03-10] MEDS: INSULIN ASPART (NovoLOG) 100 UNIT/ML VIAL SQ SCH ×2 (05:36→12:26)
[2020-03-10] MEDS: POTASSIUM BICARBONATE/CIT AC 20 MEQ TABLET.EFF NG-TUBE SCH ×2 (05:59→06:46)
[2020-03-10 06:00] LABS: Polychromasia Present
--- NOTE | 2020-03-10 07:11 | XR ---
EXAMINATION TYPE: XR chest 1V portable DATE OF EXAM: 03/10/2020 COMPARISON: 03/09/2020 HISTORY: SOB, Follow Up FINDINGS: Patchy left lower lobe infiltrate persists. Continued pulmonary venous congestion. Tracheostomy tube and the left subclavian central venous line unchanged. Stable appearance of the cardio-mediastinal structures at this time. Pleural effusion unchanged. IMPRESSION: 1. Patchy left lower lobe infiltrate persists. Continued pulmonary venous congestion. Tracheostomy t ube and the left subclavian central venous line unchanged.
[2020-03-10] MEDS: PANTOPRAZOLE 40 MG/10 ML VIAL IVP SCH (08:13)
[2020-03-10] MEDS: CHLORHEXIDINE GLUCONATE 15 ML CUP MUCOUS MEM SCH (08:15)
[2020-03-10] MEDS: LACTULOSE 20 GM/30 ML CUP PO SCH (08:15)
[2020-03-10] MEDS: FUROSEMIDE 10 MG/ML 4 ML VIAL IV SCH (08:40)
--- NOTE | 2020-03-10 09:58 | US ---
EXAMINATION TYPE: US abdomen limited DATE OF EXAM: 03/10/2020 COMPARISON: NONE CLINICAL HISTORY: to evaluate for presence of ascites. Mild to moderate ascites. IMPRESSION: Ascites
[2020-03-10 10:46] VITALS: BMI 31.8
[2020-03-10] MEDS ORDERED: POTASSIUM CHLORIDE 20 MEQ in WATER FOR INJECTION 1 100ML.BAG IVPB SCH (11:00)
--- NOTE | 2020-03-10 11:52 | P.DS ---
Providers Date of admission: 02/22/20 16:12 Expected date of discharge: 03/10/20 Attending physician: Kaiden Solano Consults: 02/22/20 16:12 Consult Physician Stat Consulting Provider: Joshua Gaxiola Consult Reason/Comments: critical care Do you want consulting provider notified?: Already Contacted Consult Physician Urgent Consulting Provider: Steffanie Carranza Consult Reason/Comments: liver failure, hepatic encephalopathy, gi hemorrhage Do you want consulting provider notified?: Yes 02/24/20 10:46 Consult Physician Urgent Consulting Provider: Chseter Carrasquillo Consult Reason/Comments: right foot, possible broken Do you want consulting provider notified?: Yes 03/01/20 09:47 Consult Physician Routine Consulting Provider: Dillan Abraham Consult Reason/Comments: tracheostomy and peg tube placement Do you want consulting provider notified?: Yes 03/02/20 12:26 Consult Physician Routine Consulting Provider: Kelsi Vieyra Consult Reason/Comments: poor neuro status on mechanical ventilator, not waking up on holidays Do you want consulting provider notified?: Yes Primary care physician: [facility] Course: Final Diagnoses: Sepsis secondary to aspiration bilateral pneumonia Acute hypoxic respiratory failure, related to the above, ventilator dependent, failure to wean, status post tracheostomy. tracheostomy site postop bleeding,unexpected,status post DDAVP , witih tracheostomy removal and replacement, requiring sutures and electrocautery. Septic and hypovolemic shock multifactorial, secondary to bilateral aspiration pneumonia, alcoholic liver disease Septic shock status post pressor support Hypotension, secondary to the above, status post pressor support dependent secondary to sepsis Acute renal failure multifactorial, secondary to all the above, diuretics Acute GI bleed, possible esophageal varices in a patient with significant alcohol dependence, status post Sandostatin Acute blood loss anemia, status post multiple transfusions of both FFP, packed RBCs Acute Hepatic encephalopathy Acute toxic, metabolic encephalopathy Alcoholic liver disease with ascites Hyperammonia Recent posterior lateral rib fractures of 9, 10 and 11 status post fall History of pericarditis Chronic back pain Polysubstance abuse, per record review; patient reports alcohol, marijuana use currently. History of nicotine dependence COPD, emphysema Legally blind Obesity, BMI 30.7 Osteoarthritis Venous insufficiency Anxiety, depression, history of, currently controlled Hyperglycemia, steroid-induced Moderate protein calorie malnutrition Hypernatremia, hyperchloremic secondary free water deficit, intravascular volume depletion Status post PEG tube placement Hypokalemia Hospital course:This is a 54-year-old gentleman, history of polysubstance abuse including alcohol abuse , falls with recent rib fractures, legally blind, osteoarthritis and multiple other medical issues presented to the ER with changes in mental status 2 days. Drug screen positive for tricyclics and benzos, serum alcohol less than 10. UA reported dark brown cloudy urine with occasional bacteria, hyaline casts, 2 WBCs, trace leukocytes, 4+ bilirubin, negative for nitrates. Ammonia level 91, T bili 14.9, currently 15.8 , elevated LFTs .Gallbladder ultrasound reporting abdominal ascites, abdominal x-ray nonacute, right foot x-ray reported no fracture, soft tissue swelling, EKG reported sinus tachycardia, troponin normal, BNP 910, echo reported normal LV function, EF 60-65% ,lactic acid 2.1 now down to 1.7, BUN 25, creatinine 0.8 chest x-ray reporting moderate pulmonary interstitial and airspace edema significantly worse than yesterday, pulmonary edema. ABGs noted. INR on admission 3.7, down to 2.2 Sepsis protocol, Received IV fluid resuscitation, IV antibiotics, cultures drawn. Developed respiratory failure, requiring intubation during the night. Currently on Sandostatin drip. 3 maroon stools during the night. Received 4 units of FFP and 2 units of packed RBCs to date. Hemoglobin currently 8.5. And had required pressor support with Levophed off since . Maintained on IV fluid resuscitation. Telemetry sinus rhythm. Potassium 3.2, magnesium 1.7. 02/24/2020 chest x-ray reporting persistent bilateral scattered airspace infiltrates, pleural effusion unchanged. Ventilator dependent, on FiO2 of 50 with PEEP increased to 12. Continues on lactulose with ammonia down to 80. T bili decreased to 11.3, LFTs improving. No further maroon stools. Small black stool this morning. Hemoglobin 8.6. Telemetry sinus rhythm to sinus tach. Sandostatin drip discontinued this morning. Last night patient asynchronous with vent, stacking breaths, Nimbex drip initiated. This morning Nimbex discontinued, changed to fentanyl drip. Requiring pressor support, Levophed resumed. Received vitamin K yesterday, INR 2.1. Marginal urine output, IV fluids decreased, and Lasix IV push added to med regime. Tube feedings ordered. Afebrile, WBC 14.7. Sputum culture pending, preliminary blood cultures negative at 48 hours. ABGs noted. 02/25/2020 yesterday Lasix and Aldactone initiated, creatinine mildly worsened up to 1.32. Ammonia increased up to 89, lactulose increased. No further maroon stools, hemoglobin increased to 9.4, platelets increased to 75. T bili trending down, 8.9, LFTs improving. Potassium 3.4. Chest x-ray reporting improving left lower lobe aeration. Right foot evaluated by orthopedic surgery, possible fluid collection, seroma with potential x-ray tomorrow. Tolerating tube feeds with minimal to no residuals, currently at 30 mls per hour with goal of 45. IV steroids added to med regimen with blood sugars increasing. Remains vent dependent with FiO2 at 50/+12 of PEEP. Continues on Levophed, fentanyl, diprovan drips. Afebrile, T-max 99.5, WBC 14.1. 02/26/2020 ABGs unchanged,remains vent dependent, FiO2 50/+12 PEEP. Chest x-ray reporting improvement. Maintained on both Xifaxan & Lactulose, ammonia increasing, beginning to stool. Creatinine trending up 1.4. Hemoglobin decreased to 8.5. INR 1.7 Levophed weaned off this morning. Attempted a sedation holiday for about an hour this morning; patient did not wake up, became agitated, tachycardic, tachypneic with respiratory rate up into the 40s, diprovan/fentanyl drips resumed. Tolerating tube feeds at 40 with goal of 45/minimal to no residual. Orthopedics discussing x-ray and foot possibly tomorrow. Afebrile WBC down to 11. 03/03/2020 patient was trached yesterday, remains vent dependent with FiO2 45%/+5 of PEEP. Chest x-ray suggestive of possible left lower lobe pneumonia, versus atelectasis, possible interstitial disease. Scheduled for PEG tube placement today. To date, patient has not tolerated sedation holidays, not following commands, becomes agitated, and becomes asynchronous with the patient. Neurology consulted, EEG completed, results pending. Maintain on D5W with improvement in sodium, Na 146. Currently sedated on Diprovan gtt. telemetry sinus rhythm. Ammonia level LII on lactulose and Xifaxan. 03/04/2020 EGD with PEG tube placement completed at bedside this morning, tolerated procedure well. Like gastroesophageal reflux reported along the anterior abdominal wall. Evaluated by neurology with recommendations noted and appreciated. EEG completed yesterday reporting abnormal, background slowing ,suggestive of generalized cerebral dysfunction seen with toxic metabolic encephalopathy related to diffuse structural brain abnormality, no obvious epileptiform activity seen. Afebrile, WBC continues trending up, currently 24.8, recultured. During sedation holiday patient noted to spontaneously move his right hand, half open his eyes responding to his name. Diprovan has been weaned off this morning. Remains vent dependent with FiO2 40%/+5 of PEEP. Chest x-ray reporting significant interval increase in left basilar airspace disease, possible infectious or aspiration pneumonitis. Ammonia level 42. Receiving potassium supplements for potassium 2.8. Sodium continues improving, 138. 03/05/2020 Remains off sedation X 24 hrs, sensorium slowly improving. Following simple commands ;Opens eyes to name, shakes head yes and no to simple questions. Sinus tachycardia with heart rate in the 110s. Chest x-ray reporting persistent left lower lobe infiltrate, IV push Lasix every 12h initiated. Vent dependent, maintained on FiO2 40%/+5 of PEEP. Significant anasarca. Yesterday PEG tube placed, did not receive any lactulose-current ammonia level 45. Bleeding around tracheostomy site, controlled with multiple packs of gauze, DDAVP. Hemoglobin 8.6, platelets 37 New central line and art line placed. Levophed currently off. T-max 99.7, WBC unchanged 24.6, recultured yesterday, cultures pending.Na 140. 03/08/2020 remains vent dependent with FiO2 50%/+5 of PEEP.. Staff reports patient following simple commands throughout the weekend when off sedation. Currently maintained on Levophed, diprovan, IV fluids of D5W and Eraxis. Recultured last week, T-max 99.9, WBC trending down ,20.3. Tachycardic in the one-teens to 120s. Hemoglobin 7.9 , platelets 64 .Sodium 148. Potassium 3.2, receiving potassium supplements. Diuresing well on Lasix IV push with 24- hour I&O reflecting a negative fluid balance. Significant stool output/FMS, amm onia level LIX, lactulose decreased. Chest x-ray reporting stable. Creatinine 1.17. 03/09/2020 remains vent dependent, FiO2 down to 40%/+5 of PEEP currently on CPAP/SIMV setting. Levophed weaned off. Diprovan recently weaned off this morning. Maintained on D5W with sodium down to 145. Lactulose decreased yesterday with ammonia level LVIII. Chest x-ray reporting possible left lower lobe infiltrate/small pleural effusion. Afebrile, WBC down to 14. Mild tachycardia, hemoglobin decreased to 7.4. Potassium 2.8. BUN 47 creatinine 0.96. Diuresing on Lasix 40 IV push. Following commands, tolerated CPAP for 2 hours earlier today. [facility] in a stable condition with guarded prognosis pending clearance from both pulmonary and GI. Diuretics as per pulmonary. The impression and plan of care has been dictated as directed. : I performed a history and examination of this patient, discussed the same with the dictator. I agree with the dictator's note ,documented as a scribe. Any additional findings or plans will be noted. Patient Condition at Discharge: Stable Plan - Discharge Summary Discharge Rx Participant: No New Discharge Prescriptions: New Lactulose [Cephulac] 20 gm PO DAILY ml Ipratropium-Albuterol Nebulize [Duoneb 0.5 mg-3 mg/3 ml Soln] 3 ml INHALATION RT-Q4H ml Ipratropium-Albuterol Nebulize [Duoneb 0.5 mg-3 mg/3 ml Soln] 3 ml INHALATION RT-Q2H PRN ml PRN Reason: Shortness Of Breath Or Wheezing Furosemide [Lasix] 40 mg PO BID #1 tablet Chlorhexidine Gluconate [Peridex] 15 ml MUCOUS MEM BID solution Pantoprazole Sodium [Protonix] 40 mg PO BID #60 tablet.dr Powers Cetirizine HCl [Zyrtec] 10 mg PO DAILY Folic Acid 1 mg PO DAILY #30 tablet Multivitamins, Thera [Multivitamin (formulary)] 1 tab PO DAILY #30 tablet Thiamine [Vitamin B-1] 100 mg PO DAILY #30 tab Discontinued Omeprazole 20 mg PO DAILY Albuterol Inhaler [Ventolin Hfa Inhaler] 1 - 2 puff INHALATION RT-Q4H PRN PRN Reason: Shortness Of Breath Discharge Medication List Cetirizine HCl [Zyrtec] 10 mg PO DAILY 10/01/19 [History] Folic Acid 1 mg PO DAILY #30 tablet 10/03/19 [Rx] Multivitamins, Thera [Multivitamin (formulary)] 1 tab PO DAILY #30 tablet 10/03/19 [Rx] Thiamine [Vitamin B-1] 100 mg PO DAILY #30 tab 10/03/19 [Rx] Chlorhexidine Gluconate [Peridex] 15 ml MUCOUS MEM BID solution 03/10/20 [Rx] Furosemide [Lasix] 40 mg PO BID #1 tablet 03/10/20 [Rx] Ipratropium-Albuterol Nebulize [Duoneb 0.5 mg-3 mg/3 ml Soln] 3 ml INHALATION RT-Q2H PRN ml 03/10/20 [Rx] Ipratropium-Albuterol Nebulize [Duoneb 0.5 mg-3 mg/3 ml Soln] 3 ml INHALATION RT-Q4H ml 03/10/20 [Rx] Lactulose [Cephulac] 20 gm PO DAILY ml 03/10/20 [Rx] Pantoprazole Sodium [Protonix] 40 mg PO BID #60 tablet. 03/10/20 [Rx] Follow up Appointment(s)/Referral(s): Ramiro Zurita Jr, [Primary Care Provider] - 1 Week (After discharge from [facility]) Delano Albarado MD [STAFF PHYSICIAN] - 2 Weeks Activity/Diet/Wound Care/Special Instructions: TFR [facility] final DC recommendations including diuretics,dc clearance as per elastic attacher zigzag.
[2020-03-10 12:24] LABS: Glucose,Whole Blood 169 mg/dL (75-99)
[2020-03-10] MEDS ORDERED: POTASSIUM BICARBONATE/CIT AC 20 MEQ TABLET.EFF PO ONE (12:30)
[2020-03-10 12:58] VITALS: TEMP 100
[2020-03-10] MEDS ORDERED: POTASSIUM BICARBONATE/CIT AC 20 MEQ TABLET.EFF NG-TUBE SCH (15:00)
[2020-03-10] MEDS ORDERED: FUROSEMIDE 40 MG TAB PO SCH (16:00)
--- NOTE | 2020-03-10 16:07 | P.PN ---
Subjective Progress Note Date: 03/10/20 On today's evaluation of 03/08/2020, the patient is being seen in follow-up. This is my first encounter with the patient. I was able to review the records and events that occurred as the patient is currently on a mechanical ventilator and the patient has a cystic estimate of in place and a PEG tube in place. The patient has a history of liver cirrhosis. The patient has been in respiratory failure requiring tracheostomy tube insertion and ultimately there was some issues with a tracheostomy tube where there was significant amount of bleeding from the tracheostomy stoma on 03/06/2020. The patient was taken to the operating room and control of bleeding was done and the patient currently has a shock tracheostomy tube in place #8. Activity was also in place. The patient is sedated with propofol of alcohol the rate of 50 g per KG pigmented. The patient is on normal saline at the rate of 10 mL an hour. The patient is on levo fed at the rate of 03 g per KG pigmented. The patient is also receiving high protein vital for enteral nutrition at the rate of 55 mL an hour. The patient is able to tolerate the tube feeds well. Nevertheless, he is having significant amount of liquidy diarrhea which is large volume and this has resulted in development of intravascular volume depletion and electrodes imbalance. Sodium level is up to 148. He is on assist control mode of ventilation at the rate of 12 with tidal volume of 450 and FiO2 of 50% with D5. The blood gases from today showed a pH of 7.4 with a pCO2 of 35 and a pO2 of 87. Patient had a follow-up chest x-ray today that showed indwelling catheters are in place and they're unchanged compared to yesterday. Pleural effusion is u nchanged. There is stable appearance of the cardia mediastinal structures at this point in time. The findings on chest x-rays essentially stable. He is afebrile. The antibiotic coverage includes Eraxis and infectious diseases on the case. Most recent blood cultures and catheter tip cultures of been negative. The sputum culture was positive for Melisa albicans. There was also Melisa glabrata. Urine culture was also positive for Melisa albicans. He does have significant amount of third spacing and anasarca as the patient has scrotal swelling, 5 swelling, lower extremity swelling, upper extremity swelling. He is currently on IV Lasix. He has been in a positive fluid balance. His weight is currently up to 91 kg and the patient's BMI 31.5. He is receiving Lasix 40 mg IV every 12 hours. The patient is also on Xifaxan regarding Her neck encephalopathy in addition to lactulose. The most recent ammonia level was at 59. On 03/09/2020, the patient remains sedated with propofol. I gave him a sedation holiday yesterday. He was taken off the sedation. It took him approximately 10 hours to show some recovery of sedation. Nevertheless, the patient became quite restless and agitated and he had to be placed back on the respirator to maintain synchrony with the mechanical ventilator. On today's evaluation the patient remained on assist control mode of ventilation. He is having double stacking on his breath. On today's evaluation is an assist-control at the rate of 12 with a tidal volume of 450 and FiO2 of 40% with a PEEP of 5. His blood gas show a pH of 7.42 with a pCO2 of 39 and pO2 of 86. The chest x-ray is showing no interval change and there are some stable infiltration and small effusion the lung bases bilaterally. The patient is on enteral feeding for nutritional support and he is having vital high protein and he is also on water flushes through the NG at 100 mL every 4 hours. The patient is also receiving D5 water at the rate of 75 mL's an hour. He is currently on propofol at 25 g per KG per minute and levo fed is also running at 0.05 g per KG per minute. The patient is in a positive fluid balance of 367 mL.. He is on D5 water at 75 mL an hour. Sodium level is improved and is down to 145. Provide level is also improving. Lactulose dose has been drop down to 20 mg on a daily basis and the patient is having still liquidy stool. The patient had an ammonia level of 58 is comparable to yesterday. Norepinephrine infusion is running a 0.05 g per KG per minute. On 03/10/2020, the patient is awake and following some simple commands. He is profoundly weak. Unable to move his upper extremities. He is able to wiggle his toes upon demand. Seems to be interacting with some facial expressions. His ammonia level is 54 and a bilirubin is at 4.7. He is having loose liquidy bowel movements. Times a day and the patient is on enteral feeding for nutritional support with vital high protein running at 29 mL an hour. The patient is also on D5 water at the rate of 75 mL an hour. He is on no pressors. No IV sedation. In terms of her respiratory status, the patient is on SIMV mode of ventilation at the rate of 6 with a tidal volume of 550 and a pressure support of 10 with an FiO2 of 40%. The chest x-ray shows patchy left lower lobe pulmonary infiltrate. Tracheostomy tube is in place. There is also left subclavian central venous catheter which is also in place. No significant orotracheal secretions. No bleeding from the tracheostomy site. The patient #89 Shiley nonfenestrated cuffed tracheostomy tube. Abdomen is slightly distended. Also with abnormal be done to rule out any significant ascites of May benefit from drainage. The blood gases from today showed a pH of 7.52 with a pCO2 of 33 and pO2 69. The patient's overall weaning parameters were adequate. The patient was able to tolerate pressure support of 5 and a PEEP of 5 generating good tidal volumes with a low respiratory rate. INR is at 1.5. The blood work shows a drop in his sodium level down to 146. This potassium level is at 3. on being replaced. Renal function is normal. LFTs are normal secondary to his liver cirrhosis and the albumin level is at 1.8 with a total protein of 4.9. Total bilirubin is at 4.7. Will consider transferring this patient to selective specialty post today's evaluation. Objective - Vital Signs Vital signs: Vital Signs Temp 100.0 F H 03/10/20 12:00 Pulse 112 H 03/10/20 15:00 Resp 23 03/10/20 15:00 BP 114/62 03/10/20 15:00 Pulse Ox 100 03/10/20 15:00 Intake & Output 03/09/20 03/10/20 03/10/20 18:59 06:59 18:59 Intake Total 2057.498 1530 1261 Output Total 1540 1110 870 Balance 517.498 420 391 Weight 92.1 kg 92.1 kg Intake: IV 1092 1092 819 0.9 NS 120 120 90 Dextrose 5% in Water 1, 900 900 675 000 ml @ 75 mls/hr IV . [id number] [facility] Rx#:[id number] Normal Saline Pressure 72 72 54 Bag Intake, IV Titration 177.498 100 Amount Anidulafungin 100 mg In 100 Sodium Chloride 0.9% 100 ml @ 84 mls/hr IVPB DAILY @1800 [facility] Rx#:[id number] Norepinephrine 8 mg In 33.950 Sodium Chloride 0.9% 250 ml @ 0.05 MCG/KG/MIN 8. 872 mls/hr IV .Q24H [facility] Rx#:[id number] Potassium Chloride 20 meq 100 In Water For Injection 1 100ml.bag @ 50 mls/hr IVPB Q2H [facility] Rx#: [id number] Propofol 1,000 mg In 43.548 Empty Bag 1 bag @ Titrate IV .Q0M [facility] Rx#: [id number] Tube Feeding 348 348 282 Other 440 90 60 Output: Urine 1540 1110 870 Other: Voiding Method Indwelling Catheter Indwelling Catheter Indwelling Catheter ABP, PAP, CO, CI - Last Documented Arterial Blood Pressure 123/45 - Exam GENERAL EXAM: On mechanical ventilator, minimally responsive 54-year-old gentleman, the patient is opening his eyes spontaneously. Sound to be much more awake and alert compared to yesterday. Can't communicate with some facial expressions. Able to wiggle his toes upon demand. No agitation. He is slightly jaundiced. HEAD: Normocephalic. EYES: Normal reaction of pupils, equal size. NOSE: Clear with pink turbinates. THROAT: Tracheostomy tube secured in place. The patient has a Shiley #8 tra cheostomy tube in place. The tube is nonfenestrated in his cough. NECK: No masses, no JVD. CHEST: No chest wall deformity. LUNGS: Equal air entry with crackles at the bilateral posterior bases. CVS:Cardiac exam revealed the PMI to be normally situated and sized. The rhythm was regular and no extrasystoles were noted during several minutes of auscultation. The first and second heart sounds were normal and physiologic splitting of the second heart sound was noted. There were no murmurs, rubs, cli cks, or gallops. ABDOMEN: PEG tube exit site clean and dry, normal bowel sounds, no guarding or rigidity. There is a slight abdominal distention with possibly some ascites with a fluid wave and shifting dullness. SPINE: No scoliosis or deformity SKIN: No rashes CENTRAL NERVOUS SYSTEM: Global weakness in all 4 extremities. Able to wiggle his toes. No cranial nerve deficits. Has a good cough and a gag. Reflexes are diminished in all 4 extremities. Alert and able to communicate with the nursing staff. EXTREMITIES: The patient has significant peripheral edema both in upper and lower extremities and the patient has diffuse anasarca in addition to scrotal edema. No cyanosis. No clubbing. - Labs CBC & Chem 7: 03/10/20 05:10 03/10/20 14:10 Labs: Abnormal Lab Results - Last 24 Hours (Table) 03/06/20 03/09/20 03/09/20 Range/Units 10:50 18:00 23:23 WBC (3.8-10.6) k/uL RBC (4.30-5.90) m/uL Hgb (13.0-17.5) gm/dL Hct (39.0-53.0) % MCV (80.0-100.0) fL RDW (11.5-15.5) % Plt Count (150-450) k/uL Neutrophils # (1.3-7.7) k/uL Macrocytosis PT (9.0-12.0) sec INR (<1.2) ABG pH (7.35-7.45) ABG pCO2 (35-45) mmHg ABG pO2 (83-108) mmHg ABG HCO3 (21-25) mmol/L ABG Total CO2 (19-24) mmol/L Sodium (137-145) mmol/L Potassium (3.5-5.1) mmol/L Chloride (98-107) mmol/L BUN (9-20) mg/dL Glucose (74-99) mg/dL POC Glucose (mg/dL) 157 H 150 H (75-99) mg/dL Calcium (8.4-10.2) mg/dL Total Bilirubin (0.2-1.3) mg/dL AST (17-59) U/L ALT (4-49) U/L Alkaline Phosphatase (38-126) U/L Ammonia (<30) umol/L Total Protein (6.3-8.2) g/dL Albumin (3.5-5.0) g/dL Crossmatch See Detail 03/10/20 03/10/20 03/10/20 Range/Units 05:10 05:10 05:10 WBC 12.6 H (3.8-10.6) k/uL RBC 2.22 L (4.30-5.90) m/uL Hgb 7.4 L (13.0-17.5) gm/dL Hct 23.0 L (39.0-53.0) % MCV 103.7 H (80.0-100.0) fL RDW 22.6 H (11.5-15.5) % Plt Count 69 L (150-450) k/uL Neutrophils # 10.2 H (1.3-7.7) k/uL Macrocytosis Marked A PT (9.0-12.0) sec INR (<1.2) ABG pH (7.35-7.45) ABG pCO2 (35-45) mmHg ABG pO2 (83-108) mmHg ABG HCO3 (21-25) mmol/L ABG Total CO2 (19-24) mmol/L Sodium 146 H (137-145) mmol/L Potassium 3.0 L (3.5-5.1) mmol/L Chloride 117 H (98-107) mmol/L BUN 39 H (9-20) mg/dL Glucose 147 H (74-99) mg/dL POC Glucose (mg/dL) (75-99) mg/dL Calcium 7.7 L (8.4-10.2) mg/dL Total Bilirubin 4.7 H (0.2-1.3) mg/dL AST 135 H (17-59) U/L ALT 76 H (4-49) U/L Alkaline Phosphatase 162 H (38-126) U/L Ammonia 54 H (<30) umol/L Total Protein 4.9 L (6.3-8.2) g/dL Albumin 1.8 L (3.5-5.0) g/dL Crossmatch 03/10/20 03/10/20 03/10/20 Range/Units 05:10 05:28 05:29 WBC (3.8-10.6) k/uL RBC (4.30-5.90) m/uL Hgb (13.0-17.5) gm/dL Hct (39.0-53.0) % MCV (80.0-100.0) fL RDW (11.5-15.5) % Plt Count (150-450) k/uL Neutrophils # (1.3-7.7) k/uL Macrocytosis PT 15.1 H (9.0-12.0) sec INR 1.5 H (<1.2) ABG pH 7.52 H (7.35-7.45) ABG pCO2 33 L (35-45) mmHg ABG pO2 69 L (83-108) mmHg ABG HCO3 27 H (21-25) mmol/L ABG Total CO2 28 H (19-24) mmol/L Sodium (137-145) mmol/L Potassium (3.5-5.1) mmol/L Chloride (98-107) mmol/L BUN (9-20) mg/dL Glucose (74-99) mg/dL POC Glucose (mg/dL) 165 H (75-99) mg/dL Calcium (8.4-10.2) mg/dL Total Bilirubin (0.2-1.3) mg/dL AST (17-59) U/L ALT (4-49) U/L Alkaline Phosphatase (38-126) U/L Ammonia (<30) umol/L Total Protein (6.3-8.2) g/dL Albumin (3.5-5.0) g/dL Crossmatch 03/10/20 03/10/20 Range/Units 10:15 12:22 WBC (3.8-10.6) k/uL RBC (4.30-5.90) m/uL Hgb (13.0-17.5) gm/dL Hct (39.0-53.0) % MCV (80.0-100.0) fL RDW (11.5-15.5) % Plt Count (150-450) k/uL Neutrophils # (1.3-7.7) k/uL Macrocytosis PT (9.0-12.0) sec INR (<1.2) ABG pH (7.35-7.45) ABG pCO2 (35-45) mmHg ABG pO2 (83-108) mmHg ABG HCO3 (21-25) mmol/L ABG Total CO2 (19-24) mmol/L Sodium (137-145) mmol/L Potassium 3.1 L (3.5-5.1) mmol/L Chloride (98-107) mmol/L BUN (9-20) mg/dL Glucose (74-99) mg/dL POC Glucose (mg/dL) 169 H (75-99) mg/dL Calcium (8.4-10.2) mg/dL Total Bilirubin (0.2-1.3) mg/dL AST (17-59) U/L ALT (4-49) U/L Alkaline Phosphatase (38-126) U/L Ammonia (<30) umol/L Total Protein (6.3-8.2) g/dL Albumin (3.5-5.0) g/dL Crossmatch Microbiology - Last 24 Hours (Table) 03/04/20 14:25 Blood Culture - Preliminary Blood No Growth after 120 hours 03/04/20 14:45 Blood Culture - Preliminary Blood No Growth after 120 hours Assessment and Plan Plan: 1 Acute hypoxic respiratory failure, suspect aspiration pneumonia, inability to wean, status post tracheostomy tube placement post PEG tube placement. On 03/06/2020 the patient developed significant bleeding and from the tracheostomy tube site. He was taken to the operating room and had a tracheostomy tube change out along with control of the bleeding vessels. The patient is adequately ventilated for now. In fact the patient has good weaning parameters. He was switched to a CPAP mode at a pressure of 5 cm of water and she was able to tolerate without any major difficulties. 2 Acute anemia secondary to above currently receiving his second unit of packed red blood cells and he did receive 4 units of fresh frozen plasma and 5 units of platelets . The patient's hemoglobin stable at 7.4 3 hypotension/shock. This is likely secondary to intravascular volume depletion time of bleeds. Septic shock cannot be completely ruled out is another contribu ting factor. this hypotension is recovered and the patient is hemodynamically stable for now on no pressors. 4 Alcohol liver disease with ascites. 5 hypernatremia secondary to aggressive use of lactulose and intravascular volume depletion with third spacing, the patient is on water flushes and D5 water with IV and the sodium level is improved significantly. 6 chronic hepatic encephalopathy with elevated ammonia, improving and the patient's mental status has considerably improved and he is awake and alert on today's evaluation. 7 Recent history of fall about 2 months ago, and multiple right-sided rib fractures. 8History of alcoholic neuropathy. 9 History of pericarditis 10 Chronic back pain 11 History of restless leg syndrome. 12 Acute kidney injury secondary to sepsis and intravascular volume depletion, recovered and the creatinine is normalized 13 hyperchloremic hypernatremia secondary to above, improving, the sodium level is down to 146 Plan Continue CPAP on a daily basis Sodium level is improving Lactulose to once a day and discontinue Xifaxan Discontinue antifungal agents Continue enteral feeding for nutritional support Monitor electrolytes We'll transfer this patient for select specialty for further care. Enteral feeding with vital high protein at the rate of 55 mL an hour Watch for any signs of bleeding from the tracheostomy stoma We'll continue to follow Critically care evaluation was done and more than 30 minutes. Time with Patient: Greater than 30
[2020-03-10 16:33] VITALS: RESP 22
[2020-03-10 17:36] VITALS: BP 111/58; PULSE 112
== END 2020-03-10 17:56 | DRG 4 ==
LOC: EC 13:45 → 2SICU 16:12
PROVIDERS: ADMIT Family Medicine; ATTEND Family Medicine
PROC: 30233K1 Transfusion of Nonautologous Frozen Plasma into Peripheral Vein, Percutaneous Approach (ICD-10-PCS; 2020-02-22)
PROC: 30233N1 Transfusion of Nonautologous Red Blood Cells into Peripheral Vein, Percutaneous Approach (ICD-10-PCS; 2020-02-22)
PROC: 5A1955Z Respiratory Ventilation, Greater than 96 Consecutive Hours (ICD-10-PCS; 2020-02-23)
PROC: 0BH17EZ Insertion of Endotracheal Airway into Trachea, Via Natural or Artificial Opening (ICD-10-PCS; 2020-02-23)
PROC: 06HM33Z Insertion of Infusion Device into Right Femoral Vein, Percutaneous Approach (ICD-10-PCS; 2020-02-23)
PROC: 4A133J1 Monitoring of Arterial Pulse, Peripheral, Percutaneous Approach (ICD-10-PCS; 2020-02-23)
PROC: 03HY32Z Insertion of Monitoring Device into Upper Artery, Percutaneous Approach (ICD-10-PCS; 2020-02-23)
PROC: 4A133B1 Monitoring of Arterial Pressure, Peripheral, Percutaneous Approach (ICD-10-PCS; 2020-02-23)
PROC: 5A1955Z Respiratory Ventilation, Greater than 96 Consecutive Hours (ICD-10-PCS; principal; 2020-03-02 11:10)
PROC: 0B110F4 Bypass Trachea to Cutaneous with Tracheostomy Device, Open Approach (ICD-10-PCS; principal; 2020-03-02 11:10)
PROC: 3E0G76Z Introduction of Nutritional Substance into Upper GI, Via Natural or Artificial Opening (ICD-10-PCS; 2020-03-04)
PROC: 0DH63UZ Insertion of Feeding Device into Stomach, Percutaneous Approach (ICD-10-PCS; 2020-03-04)
PROC: 03HY32Z Insertion of Monitoring Device into Upper Artery, Percutaneous Approach (ICD-10-PCS; 2020-03-05)
PROC: 4A133B1 Monitoring of Arterial Pressure, Peripheral, Percutaneous Approach (ICD-10-PCS; 2020-03-05)
PROC: 02HV33Z Insertion of Infusion Device into Superior Vena Cava, Percutaneous Approach (ICD-10-PCS; 2020-03-05)
PROC: 4A133J1 Monitoring of Arterial Pulse, Peripheral, Percutaneous Approach (ICD-10-PCS; 2020-03-05)
PROC: 3E043XZ Introduction of Vasopressor into Central Vein, Percutaneous Approach (ICD-10-PCS; 2020-03-05)
PROC: 0B21XFZ Change Tracheostomy Device in Trachea, External Approach (ICD-10-PCS; 2020-03-06)
PROC: 6A550Z2 Pheresis of Platelets, Single (ICD-10-PCS; 2020-03-06)
DX: A41.9 Sepsis, unspecified organism (principal); G92 Toxic encephalopathy; J69.0 Pneumonitis due to inhalation of food and vomit; J96.01 Acute respiratory failure with hypoxia; I85.11 Secondary esophageal varices with bleeding; R57.1 Hypovolemic shock; R65.21 Severe sepsis with septic shock; D62 Acute posthemorrhagic anemia; E44.0 Moderate protein-calorie malnutrition; E87.0 Hyperosmolality and hypernatremia; J90 Pleural effusion, not elsewhere classified; J95.01 Hemorrhage from tracheostomy stoma; J98.11 Atelectasis; K76.6 Portal hypertension; N17.9 Acute kidney failure, unspecified; Z99.11 Dependence on respirator [ventilator] status; D68.9 Coagulation defect, unspecified; K70.11 Alcoholic hepatitis with ascites; K70.31 Alcoholic cirrhosis of liver with ascites; Z20.828 Contact with and (suspected) exposure to other viral communicable diseases; K70.40 Alcoholic hepatic failure without coma; D53.9 Nutritional anemia, unspecified; D69.59 Other secondary thrombocytopenia; E66.9 Obesity, unspecified; E87.6 Hypokalemia; G62.1 Alcoholic polyneuropathy; E87.8 Other disorders of electrolyte and fluid balance, not elsewhere classified; F10.20 Alcohol dependence, uncomplicated; F17.210 Nicotine dependence, cigarettes, uncomplicated; F32.9 Major depressive disorder, single episode, unspecified; F41.9 Anxiety disorder, unspecified; G25.81 Restless legs syndrome; G89.29 Other chronic pain; M54.9 Dorsalgia, unspecified; H54.8 Legal blindness, as defined in USA; I87.2 Venous insufficiency (chronic) (peripheral); J43.9 Emphysema, unspecified; J45.909 Unspecified asthma, uncomplicated; K21.9 Gastro-esophageal reflux disease without esophagitis; M19.90 Unspecified osteoarthritis, unspecified site; N18.1 Chronic kidney disease, stage 1; N50.89 Other specified disorders of the male genital organs; M79.89 Other specified soft tissue disorders; S22.49XD Multiple fractures of ribs, unspecified side, subsequent encounter for fracture with routine healing; W19.XXXD Unspecified fall, subsequent encounter; Z91.81 History of falling; T38.0X5A Adverse effect of glucocorticoids and synthetic analogues, initial encounter; R73.9 Hyperglycemia, unspecified; W19.XXXA Unspecified fall, initial encounter; Y92.002 Bathroom of unspecified non-institutional (private) residence as the place of occurrence of the external cause; Z68.31 Body mass index [BMI] 31.0-31.9, adult; F19.10 Other psychoactive substance abuse, uncomplicated; R26.9 Unspecified abnormalities of gait and mobility; H35.30 Unspecified macular degeneration
CPT/HCPCS: 36415; 36600; 43246; 51701; 70450; 71045; 71046; 74018; 76705; 80048; 80053; 80306; 80320; 81001; 82140; 82150; 82247; 82272; 82805; 83036; 83605; 83690; 83735; 83880; 83930; 83935; 84100; 84132; 84145; 84450; 84460; 84484; 85025; 85027; 85610; 85730; 86850; 86900; 86901; 86920; 87040; 87070; 87086; 87205; 93005; 93306; 93880; 94002; 94003; 94640; 95816; 96361; 96365; 96374; 96375; 99291